=== PATIENT | female | born 1945 | race Caucasian/White ===

== ENCOUNTER 2019-10-27 19:09 | Inpatient (IN) | payer MEDICARE, OTHER, SELFPAY ==
--- NOTE | ~2019-10-27 | CT_ITS ---
EXAMINATION: CTA chest PE protocol DATE: 10/27/2019 21:13 UNIVERSITY SERVICES PROGRAM ASSOCIATE INDICATION: Shortness of breath, fever and bronchitis. TECHNIQUE: Computed tomographic angiography (CTA) of the chest was performed with 100 mL Omnipaque-35 0 intravenous contrast. The dose-length product was 587.01 mGy-cm. Maximum intensity projection 3D-re constructions of the aorta and other arteries were constructed by the technologist on a separate work station. Automated exposure control and iterative reconstruction technique were employed. COMPARISON: Chest x-ray dated 10/27/2019 FINDINGS: The study is technically adequate. There are filling defects in right upper lobe segmental and subsegmental pulmonary arteries, consistent with pulmonary embolism. There is moderate cardiomega ly with left ventricular enlargement. No significant pleural or pericardial effusion. There is athero sclerosis of the aorta without evidence for aneurysm or dissection. No thoracic lymphadenopathy. Ther e is a 1.5 cm left adrenal nodule likely benign adenoma. There is a small 1.5 cm low-density right ad renal nodule. IMPRESSION: 1. Pulmonary embolism involving right upper lobe segmental and subsegmental arteries, small thrombus burden. 2: Moderate cardiomegaly. 3: Small bilateral low-density adrenal nodules, most likely benign adenomas. Reviewed, dictated and finalized at location A. ERSITY SERVICES PROGRAM ASSOCIATE IMPRESSION: 1. Pulmonary embolism involving right upper lobe segmental and subsegmental art eries, small thrombus burden. 2: Moderate cardiomegaly. 3: Small bilateral low-density adrenal nodules, most likely benign adenomas.
--- NOTE | ~2019-10-27 | XR_ITS ---
EXAMINATION: XR chest 2V EXAM DATE: 10/28/2019 10:01 INDICATION: Chest tightness, discomfort. Pulmonary embolism. TECHNIQUE: Frontal and lateral projections of the chest obtained and reviewed. Comparison is made to prior examination from 10/27/2019. FINDINGS: Several small linear regions of basilar atelectasis. The lungs are otherwise clear. There are no pleural effusions. The cardiomediastinal silhouette is within normal limits. There is no pn eumothorax suspected. There are bony degenerative changes. IMPRESSION: Several subsegmental basilar linear regions likely atelectasis. Reviewed, dictated and finalized at location B. TEACHER
--- NOTE | ~2019-10-27 | US_ITS ---
EXAMINATION: US venous doppler [facility] EXAM DATE: 10/28/2019 10:52 INDICATION: Shortness of breath. Pulmonary emboli. TECHNIQUE: Multiple grayscale, color flow and Doppler images of the lower extremity deep venous syste ms bilaterally were obtained and reviewed. There is no prior study for comparison. FINDINGS: Right side: The right common femoral, femoral and profunda veins demonstrate normal color flow, respi ratory variation, augmentation and compressibility. Compressibility, color flow confirmed within the right popliteal, posterior tibial, peroneal, and greater saphenous veins. Left side: The left common femoral, femoral and profunda veins demonstrate normal color flow, respira tory variation, augmentation and compressibility. Compressibility, color flow confirmed within the l eft popliteal, posterior tibial, peroneal, and greater saphenous veins. IMPRESSION: 1. No lower extremity deep venous thrombosis bilaterally. Reviewed, dictated and finalized at location B. T SPECIALIST
--- NOTE | ~2019-10-27 | XR_ITS ---
XR chest 2V 10/27/2019 20:07 Indication: Cough, fever and shortness of breath. Procedure: 2 view chest Comparison: Comparison to multiple prior studies sequentially, with oldest reviewed study dated 04/2010. Findings: Moderate cardiomegaly. No focal air space disease, pulmonary edema, pleural effusion or abi pected pneumothorax. No acute osseous abnormality. There is mild-moderate thoracic spondylosis. Impression: 1: No acute cardiopulmonary disease. 2: Moderate cardiomegaly. Reviewed, dictated and finalized at location A. NT RELATION SPECIALIST Impression: 1: No acute cardiopulmonary disease. 2: Moderate cardiomegaly.
--- NOTE | ~2019-10-27 | CT_ITS ---
EXAMINATION: CT brain wo con DATE: 10/28/2019 19:43 INDICATION: Diffuse headache TECHNIQUE: Computed tomography (CT) of the head was performed without intravenous contrast. The dose- length product was 605.33 mGy-cm. Automated exposure control and iterative reconstruction technique w ere employed. COMPARISON: CT dated 11/19/2018 FINDINGS: There are scattered moderate periventricular and subcortical white matter changes, most lik susanna related to small vessel ischemic disease (microangiopathy). No acute intracranial hemorrhage, inf arction, mass or mass effect. There is intracranial atherosclerosis. No ventriculomegaly or midline s hift. Paranasal sinuses and mastoids are pneumatized. No depressed skull fractures. Midline sagittal images are unremarkable. IMPRESSION: 1. No acute intracranial abnormality. 2: Chronic age-related findings. Reviewed, dictated and finalized at location A. TAL PRODUCTION OPERATOR
--- NOTE | ~2019-10-27 | XR_ITS ---
XR chest 2V 10/28/2019 19:44 Indication: Chest pain Procedure: PA and lateral views of the chest Comparison: Comparison to multiple prior studies sequentially, with oldest reviewed study dated 05/17. Findings: Cardiomegaly. Bibasilar atelectasis. No focal pneumonia, edema, effusion or pneumothorax. N o acute osseous abnormality. Impression: 1: Bibasilar atelectasis. 2: Cardiomegaly. Reviewed, dictated and finalized at location A. OR CLINICAL SAS PROGRAMMER Impression: 1: Bibasilar atelectasis. 2: Cardiomegaly.
[2019-10-27 19:24] VITALS: BP 192/91; PULSE 84; RESP 22; TEMP 37.2; O2SAT 97
--- NOTE | 2019-10-27 19:28 | ED.URI ---
HPI - URI/Sore Throat General Chief Complaint: Upper Respiratory Infection Stated Complaint: trouble breathing,bronchitis Source: patient Mode of arrival: ambulatory Limitations: no limitations History of Present Illness HPI Narrative: This 73-year-old female with a history of diabetes, coronary artery disease hypertension presents with increasing shortness of breath low-grade fever and chills cough that is productive of yellow sputum currently there is no chest pain or tightness no abdominal pain no nausea vomiting and O2 diarrhea or constipation. Patient has seen her primary care physician approximately 4 weeks ago of her cough and congestion was started on a Z-Jorge, apparently 2 weeks later the patient felt no better and was placed on another Z-Jorge. Shortness of breath has increased in intensity with cough is mildly productive with low-grade fever and chills. MD elicited complaint: fever and cough Onset (ago): week(s) Consistency: intermittent Severity: moderate Description of mucous: yellow Exacerbating factors: exertion Relieving factors: nothing Associated symptoms: fever, cough and shortness of breath Related Data Home Medications Medication Instructions Recorded Confirmed aspirin 325 mg PO DAILY 10/27/19 10/27/19 atorvastatin 80 mg PO DAILY 10/27/19 10/27/19 cholecalciferol (vitamin D3) 125 mcg PO DAILY 10/27/19 10/27/19 [Vitamin D3] furosemide 40 mg PO DAILY 10/27/19 10/27/19 insulin NPH and regular human 10 unit SUBCUT QPM 10/27/19 10/27/19 [Novolin 70/30 U-100 Insulin] insulin NPH and regular human 15 unit SUBCUT QAM 10/27/19 10/27/19 [Novolin 70/30 U-100 Insulin] lisinopril 10 mg PO DAILY 10/27/19 10/27/19 metoprolol succinate 50 mg PO DAILY 10/27/19 10/27/19 potassium gluconate 99 mg PO DAILY 10/27/19 10/27/19 Allergies Allergy/AdvReac Type Severity Reaction Status Date / Time codeine Allergy Mild Verified 09/06/10 10:55 Review of Systems Review of Systems: All systems reviewed & are unremarkable except as noted in HPI and below PMFSH Past Medical History Medical History (Updated 10/27/19 @ 21:41 by Ignacio Lauren MD) CAD (coronary artery disease) Diabetes mellitus HTN (hypertension) Exam Const: General: no acute distress and alert Nutritional Appearance: well nourished Orientation/consciousness: patient oriented x3 HENMT: Head: normal to inspection Eyes: Conjunctivae: conjunctivae normal Pupils: Equal, round and reactive pupils present Neck: Neck: normal visual inspection and no lymphadenopathy Chest: Chest palpation & inspection: normal inspection of the chest Resp: Effort & Inspection: normal respiratory effort Auscultation: rhonchi, wheezes and diminished lung sounds Cardio: Rate: regular rate Rhythm: regular rhythm GI: GI Palp: Yes Soft to palpation Percussion: Yes normal to percussion Back/Spine/Pelvis: Back: no CVA tenderness Skin: General skin exam: normal color Rashes: no rashes Neuro: General: patient oriented x3, moves all extremities, no meningeal signs and no focal motor deficits Extrem: General: normal to inspection Psych: Mental Status: mental status grossly normal Course Course Emergency Course: After re-evaluation of the patient the patient is anxious and apprehensive although her breathing status is considerably improved, she was given Ativan and Zofran for nausea patient continues to be nervous and apprehensive, blood pressure is elevated slightly to 177/84. Vital Signs Vital signs: Vital Signs Temperature 37.2 C 10/27/19 19:24 Pulse Rate 84 10/27/19 19:24 Respiratory Rate 22 H 10/27/19 19:24 Blood Pressure 192/91 H 10/27/19 19:24 Pulse Oximetry 97 10/27/19 19:24 Temperature 37.2 C 10/27/19 19:24 Pulse Rate 84 10/27/19 19:24 Respiratory Rate 22 H 10/27/19 19:24 Blood Pressure 192/91 H 10/27/19 19:24 Pulse Oximetry 97 10/27/19 19:24 Critical Care Time Critical Care Time Critical Care Time: No
--- NOTE | 2019-10-27 19:34 | ECG_ITS ---
Measurements Intervals [place] Rate: 72 P: 5 AK: 151 QRS: -46 QRSD: 141 T: 50 QT: 451 QTc: 497 Interpretive Statements SINUS RHYTHM LEFT AXIS DEVIATION LEFT BUNDLE BRANCH BLOCK BASELINE ARTIFACT- I, II, III, AVR, AVL, AVF ABNORMAL ECG Electronically Signed On 10-28-2019 7:16:40 PRODUCTION OPERATIONS ENGINEER by Brian Carson D.O.
[2019-10-27] MEDS: methylPREDNISolone SOD SUCC 125 MG VIAL IV PUSH (19:50)
[2019-10-27 19:52] LABS: Carboxyhemoglobin 0.3 % (0-1.5); HCO3 ABG 22.5 mmol/L (23-29); Methemoglobin ABG 0.2 % (0-1.5); Oxygen Content ABG 14.6 %vol (16.0-22.0); Oxygen Saturation ABG 94.7 % (95-97); Oxyhemoglobin 94.2 % (94-100); PO2 ABG 77.3 mmHg (75-85); Reduced Hemoglobin 5.3 % (0-1.5); pH ABG 7.45 (7.35-7.45)
[2019-10-27 19:56] LABS: Basophils Absolute Auto 0.05 K/mm3 (0.00-0.10); Basophils Percent Auto 0.6 % (0.0-1.0); Device ROOM AIR; Eosinophils Absolute Auto 0.26 K/mm3 (0.02-0.50); Hematocrit 36.9 % (35.0-42.0); Immature Granulocyte Absolute 0.03 K/mm3 (0.00-0.00); Immature Granulocyte Percent A 0.4 % (0.0-0.0); Lymphocytes Absolute Auto 2.79 K/mm3 (1.10-4.50); Lymphocytes Percent Auto 32.6 % (18.0-42.0); Mean Corpuscular HGB Conc 32.5 g/dL (32.0-36.0); Mean Corpuscular Hemoglobin 27.9 pg (27.0-31.0); Mean Corpuscular Volume 85.8 fL (78.0-102.0); Mean Platelet Volume 10.7 fl (9.2-11.8); Modified Allen's Test Pass; Monocytes Absolute Auto 0.52 K/mm3 (0.10-0.90); Monocytes Percent Auto 6.1 % (2.0-11.0); Neutrophils Absolute Auto 4.9 K/mm3 (1.7-7.2); Neutrophils Percent Auto 57.3 % (50.0-70.0); Platelet Count Result 243 K/mm3 (150-420); Red Cell Distribution Width 13.3 % (11.6-14.4); Site Drawn LEFT RADIAL; White Blood Count 8.6 K/mm3 (4.8-10.8)
[2019-10-27] MEDS: IPRATROPIUM 0.5 MG/ALBUTEROL SULFATE 2.5 MG AMPUL.NEB 3 ML INHALATION (19:56)
[2019-10-27 20:00] VITALS: PULSE 84; RESP 22; O2SAT 97
[2019-10-27 20:12] LABS: D Dimer 2.22 mg/L (0.19-0.50)
[2019-10-27 20:14] VITALS: PULSE 74; RESP 22; O2SAT 96
[2019-10-27 20:14] LABS: Alanine Aminotransferase 31 U/L (14-59); Albumin Level 3.8 g/dL (3.4-5.0); Alkaline Phosphatase 35 U/L (46-116); Anion Gap 13.2 mmol/L (7-16); Aspartate Amino Transferase 17 U/L (15-37); Bilirubin,Total 0.4 mg/dL (0.00-1.00); Blood Urea Nitrogen 32 mg/dL (7-18); Calcium 9.2 mg/dL (8.5-10.1); Carbon Dioxide 29 mmol/L (21-32); Chloride 105 mmol/L (98-108); Estimated Glomerular Filt Rate 36; Glucose 149 mg/dL (70-99); Osmolality Calculated 305 mOsm/kg (285-295); Potassium 4.2 mmol/L (3.5-5.1); Sodium 143 mmol/L (136-145); Total Protein 7.4 g/dL (6.4-8.2); Troponin I 0.02 ng/mL (0.00-0.056)
[2019-10-27 20:15] LABS: BNP 295 pg/mL (0-100)
[2019-10-27 20:16] LABS: Magnesium 1.9 mg/dL (1.8-2.4)
[2019-10-27 20:25] LABS: Influenza Control Valid (Valid)
--- NOTE | 2019-10-27 21:08 | PC.NURSE ---
This rn called to ct. pt c/o nausea and shakiness. pt brought back to ed room 2 and edp aware.
[2019-10-27] MEDS: LORAZEPAM INJ 2 MG/ML VIAL 0.5 MG IV PUSH (21:11)
[2019-10-27] MEDS: ONDANSETRON INJ 4 MG/2 ML VIAL IV PUSH (21:11)
[2019-10-27 21:21] VITALS: BP 194/81; PULSE 75; RESP 18; O2SAT 95
[2019-10-27 21:32] VITALS: BP 177/79; PULSE 81; RESP 18; O2SAT 95
--- NOTE | 2019-10-27 22:06 | PC.NURSE ---
report to facundo RN
--- NOTE | 2019-10-27 22:20 | PC.NURSE ---
Pts son to nurses desk and requesting to be called if anything is needed, Dirk Kraft phone # [phone]
[2019-10-27 22:45] VITALS: PULSE 74; RESP 20; O2SAT 94
[2019-10-27] MEDS: APIXABAN 2.5 MG TABLET 10 MG PO (22:49)
--- NOTE | 2019-10-27 23:29 | ADMGEN ---
This patient, Tran Bryan, was admitted to 2nd Floor Room 205-2. Patient/family oriented to hospital policies and general routines including ID bracelet, bed and alarms, visiting hours, pain management, procedures, bathroom and other care routines, personal items, smoking policy, room service/diet, and visiting hours. Valuables list includes a gold colored ring, a gold colored necklace with a gold colored cross, upper and lower dentures, glasses and a cell phone. Information on how to activate the Rapid Response Team has been discussed. Patient/Family are encouraged to report perceived risks to care and to ask questions if they do not understand what they are told or what they should do.
[2019-10-27] MEDS: SODIUM CHLORIDE 0.9% IV 1,000 ML 100 ML IV CONT (23:53)
[2019-10-28] VITALS (19 sets, daily range): BP systolic 107–158; BP diastolic 44–69; PULSE 74–94; RESP 16–20; TEMP 36.1–36.8; O2SAT 89–97
[2019-10-28] MEDS: IPRATROPIUM 0.5 MG/ALBUTEROL SULFATE 2.5 MG AMPUL.NEB 3 ML INHALATION ×3 (00:08→18:02)
--- NOTE | 2019-10-28 00:45 | PC.NURSE ---
Patient awakened but remained drowsy, saying she's sleeping good. Denies chest, head, or any other pain @ this time. Denies SOB. Denies need to use bathroom @ this time. Patient says she has been unable to give sputum specimen, that her cough has slowed down again and she doesn't cough anything up when she does cough. Call light in reach.
[2019-10-28] MEDS: ACETAMINOPHEN 325 MG TABLET 650 MG PO ×3 (04:18→16:57)
[2019-10-28 07:22] LABS: Glucose Point of Care 319 (65-105)
[2019-10-28 07:50] LABS: Basophils Absolute Auto 0.01 K/mm3 (0.00-0.10); Basophils Percent Auto 0.1 % (0.0-1.0); Hematocrit 32.7 % (35.0-42.0); Hemoglobin 10.7 g/dL (11.7-13.8); Immature Granulocyte Absolute 0.05 K/mm3 (0.00-0.00); Immature Granulocyte Percent A 0.6 % (0.0-0.0); Lymphocytes Absolute Auto 0.66 K/mm3 (1.10-4.50); Lymphocytes Percent Auto 7.7 % (18.0-42.0); Mean Corpuscular HGB Conc 32.7 g/dL (32.0-36.0); Mean Corpuscular Hemoglobin 27.9 pg (27.0-31.0); Mean Corpuscular Volume 85.2 fL (78.0-102.0); Mean Platelet Volume 10.7 fl (9.2-11.8); Monocytes Absolute Auto 0.03 K/mm3 (0.10-0.90); Monocytes Percent Auto 0.3 % (2.0-11.0); Neutrophils Absolute Auto 7.9 K/mm3 (1.7-7.2); Neutrophils Percent Auto 91.3 % (50.0-70.0); Platelet Count Result 228 K/mm3 (150-420); Red Blood Count 3.84 M/mm3 (4.20-5.40); Red Cell Distribution Width 13.3 % (11.6-14.4); White Blood Count 8.6 K/mm3 (4.8-10.8)
[2019-10-28 08:01] LABS: INR 1.1; Partial Thromboplastin Time 28.3 SEC (22.3-31.6); Prothrombin Time 11.8 Seconds (9.64-11.0)
--- NOTE | 2019-10-28 08:02 | PC.NURSE ---
Sitting on edge of bed, eating breakfast, denies compalints, warm wash cloth and comb given, telemetry SR 80-90, no sob noted
[2019-10-28 08:09] LABS: Alanine Aminotransferase 26 U/L (14-59); Albumin Level 3.2 g/dL (3.4-5.0); Alkaline Phosphatase 31 U/L (46-116); Anion Gap 18.8 mmol/L (7-16); Aspartate Amino Transferase 15 U/L (15-37); Bilirubin,Total 0.3 mg/dL (0.00-1.00); Blood Urea Nitrogen 33 mg/dL (7-18); Calcium 8.4 mg/dL (8.5-10.1); Carbon Dioxide 21 mmol/L (21-32); Chloride 103 mmol/L (98-108); Estimated CRCL calculation 35 ml/min; Estimated Glomerular Filt Rate 33; Glucose 324 mg/dL (70-99); Osmolality Calculated 306 mOsm/kg (285-295); Potassium 4.8 mmol/L (3.5-5.1); Sodium 138 mmol/L (136-145); Total Protein 6.6 g/dL (6.4-8.2); Troponin I 0.03 ng/mL (0.00-0.056)
[2019-10-28] MEDS: METOPROLOL SUCCINATE EXT REL 50 MG TABCR PO (08:43)
[2019-10-28] MEDS: ASPIRIN 325 MG ENTERIC TABLET PO (08:44)
[2019-10-28] MEDS: FUROSEMIDE 40 MG TABLET PO (08:44)
[2019-10-28] MEDS: CHOLECALCIFEROL 1,000 UNIT TABLET 1000 UNITS PO (08:44)
[2019-10-28] MEDS: lisinopriL 10 MG TABLET PO (08:44)
--- NOTE | 2019-10-28 08:44 | ECG_ITS ---
Measurements Intervals [place] Rate: 81 P: 63 SD: 174 QRS: 127 QRSD: 139 T: 9 QT: 459 QTc: 533 Interpretive Statements SINUS RHYTHM RIGHT AXIS DEVIATION IVCD, CONSIDER ATYPICAL LEFT BUNDLE BRANCH BLOCK ST-T WAVE ABNORMALITY IN INFERIOR LEADS- CONSIDER ISCHEMIA ABNORMAL ECG Electronically Signed On 10-28-2019 7:20:35 APPARATUS ENGINEERING TECHNOLOGIST by Brian Carson D.O.
[2019-10-28] MEDS: AMLODIPINE BESYLATE 5 MG TABLET PO (08:45)
[2019-10-28] MEDS: APIXABAN 2.5 MG TABLET 10 MG PO ×2 (08:45→20:40)
[2019-10-28] MEDS: INSULIN HUMAN ISOPHAN/REGULAR 70/30 (*BKC) 100 UNITS/ML 15 UNITS SUB-Q (08:46)
[2019-10-28] MEDS: methylPREDNISolone SOD SUCC 40 MG VIAL IV PUSH (08:46)
--- NOTE | 2019-10-28 08:57 | PC.NURSE ---
attempt to apply thigh high danae hose, knee high applied, tolerated well and do go above knee
--- NOTE | 2019-10-28 09:07 | PC.NURSE ---
SBA up to void, then to chair, legs elevated for comfort, slight fernandez noted
--- NOTE | 2019-10-28 09:36 | PC.NURSE ---
Assisted to WC for CXR to be done, tolerated well, slight dizzyness when first standing, telemetry SR
[2019-10-28] MEDS: SODIUM CHLORIDE 0.9% IV 1,000 ML 100 ML IV CONT (09:39)
--- NOTE | 2019-10-28 09:46 | PC.NURSE ---
To imaging via wheel chair
--- NOTE | 2019-10-28 09:53 | PC.NURSE ---
returned from imaging
--- NOTE | 2019-10-28 10:14 | PC.NURSE ---
venous dopplar being done at the bedside at this time
--- NOTE | 2019-10-28 10:30 | ECHO_ITS ---
Patient Info Name: Tran Bryan Age: 73 years : 1945 Gender: Female Ht: 59 in Wt: 164 lbs BSA: 1.79 m2 HR: 80 bpm BP: 135 / 65 mmHg Heart Rhythm: Sinus Rhythm Technical Quality: Fair Exam Date: 10/28/2019 2:05 PM Exam Location: [facility] Patient Status: Inpatient Admit Date: 10/27/2019 Staff Ordering Physician: Latoya Mcneil NP [place] Supervisor: Raimundo Henson RDCS Attending Provider: Ignacio Lauren MD Referring Physician: Tarun WEEKS; Exam Type: CA echo doppler color flow Study Info Indications I26.99 - Other pulmonary embolism without acute cor pulmonale Complete two-dimensional, color flow and Doppler transthoracic echocardiogram is performed. History/Risk Factors Pulmonary embolism; SOB, CAD/CHF, DM2, HTN, CKD III. Summary 1. Left ventricular chamber dimension is normal. 2. Left ventricular systolic function is normal, estimated at 55-60%. 3. There is mildly increased left ventricular wall thickness. 4. The left ventricular diastolic function is grade I diastolic dysfunction. 5. E/e' 21 is elevated. 6. Left atrial chamber dimension is moderately enlarged. 7. There is mild to moderate mitral valve regurgitation. 8. Moderate pulmonary hypertension, estimated pulmonary arterial systolic pressure is 54 mmHg. 9. Dilated inferior vena cava with >50% collapse upon inspiration consistent with elevated right atrial pressure, 10 mmHg. 10. There is trivial pericardial effusion. Left Ventricle E/e' 21 is elevated. Left ventricular chamber dimension is normal. Left ventricular systolic function is normal, estimated at 55-60%. There is mildly increased left ventricular wall thickness. The left ventricular diastolic function is grade I diastolic dysfunction. Right Ventricle Right ventricular chamber dimension is normal. Right ventricular systolic function is normal. Left Atria Left atrial chamber dimension is moderately enlarged. Right Atria Right atrial chamber dimension is normal. Aortic Valve The aortic valve is trileaflet. There is no aortic valve stenosis. There is no aortic valve regurgitation. Pulmonic Valve There is no pulmonic regurgitation. Mitral Valve There is no mitral valve stenosis. There is mild to moderate mitral valve regurgitation. Tricuspid Valve There is no tricuspid valve regurgitation. Moderate pulmonary hypertension, estimated pulmonary arterial systolic pressure is 54 mmHg. Pericardium/Pleural There is trivial pericardial effusion. Inferior Vena Cava Dilated inferior vena cava with >50% collapse upon inspiration consistent with elevated right atrial pressure, 10 mmHg. Aorta The aortic root size at the sinus of Valsalva is normal. Left Ventricular Outflow Tract Name Value Normal LVOT 2D LVOT Diameter 1.8 cm LVOT Doppler LVOT Peak Velocity 144 cm/s LVOT Peak Gradient 8 mmHg LVOT Mean Gradient 5 mmHg LVOT VTI 30 cm LVOT VTI/AV VTI Ratio 0.6 LVOT Stroke Volume
--- NOTE | 2019-10-28 10:38 | PC.NURSE ---
tylenol given for headache
--- NOTE | 2019-10-28 10:39 | PM.IMHP ---
H&P: HPI History of Present Illness Chief complaint: trouble breathing,bronchitis Narrative: Tran Bryan is a 73 year old female admitted with unresolving and worsening SOB, low grade fever and chills, intermittently productive cough with yellow sputum, and unresolving acute bronchitis despite 2 courses of outpatient antibiotics. Tran has seen her primary care physician approximately 4 weeks ago of her cough and congestion was started on a Z-Jorge, apparently 2 weeks later the patient felt no better and was placed on another Z-Jorge. She completed both courses of azithromycin. She was very anxious and apprehensive in the ED although her breathing status is considerably improved. She informed me that she was in tears when they told her of the PE diagnosis. She was given Ativan and Zofran for nausea in the ED, but patient continued to be nervous and apprehensive. Her blood pressure was also elevated at 177/84 in the ED. She denied at admission and continues to deny: chest pain or tightness, abdominal pain, nausea, vomiting, diarrhea, or constipation. Tran has a history of diabetes, coronary artery disease, hypertension. TODAY, while she admits to being more comfortable and feeling better, she continues to be SOB. She is not requiring supplemental O2 while at rest. Will check a Home O2 study to see how she does with ambulation and distance. She continues to have a slight dizziness or slight imbalance feeling when she stands and ambulates. Ordered Orthostatic BP check. She is calm and pleasant, good historian, no dyspnea with conversation, extremities are warm and pink, and tolerating room air and her Eliquis dosing. No s/s of active bleeding at this time and no acute s/s of Cardiac burden at this time. Will continue Telemetry monitoring. Review of Systems Review of Systems: All systems reviewed & are unremarkable except as noted in HPI and below Constitutional: Constitutional: Reports as per HPI, Reports chills, Reports lethargy and Reports weakness Eyes: Eyes: Reports as per HPI ENT: Reports as per HPI Cardiovascular: Cardiovascular: Reports as per HPI, Denies pedal edema, Denies leg edema, Reports lightheadedness and Reports palpitations Respiratory: Respiratory: Reports as per HPI, Reports chest congestion, Reports cough, Denies hemoptysis, Reports dyspnea, Reports dyspnea on exertion and Reports wheezing Gastrointestinal: Gastrointestinal: Reports as per HPI, Reports no additional gastrointestinal complaints and Denies hematochezia Genitourinary: Genitourinary: Reports as per HPI, Denies nocturia and Denies flank pain Musculoskeletal: Musculoskeletal: Reports as per HPI, Reports back pain and Reports myalgias Integumentary/Breasts: Skin/Breast: Reports system reviewed and no additional complaints, except as docu, Reports as per HPI and Denies unusual bruising Neurologic: Reports as per HPI, Denies Abnormal speech present, Denies abnormal gait, Denies confusion and Denies numbness Psychiatric: Psychiatric: Reports as per HPI, Reports anxiety, Denies confusion, Denies homicidal ideation and Denies suicidal ideation Hematologic/Lymphatic: Hematologic/Lymphatic: Reports as per HPI, Denies easy bleeding, Denies easy bruising and Denies lymphadenopathy [facility] Past Medical History Medical History (Updated 10/28/19 @ 12:49 by Latoya Mcneil NP) Abdominal pain, chronic, epigastric Acute upper respiratory infection CAD (coronary artery disease) Diagnosed in April 2015, OM stent Dr. Shay April 2015. Carotid stenosis Left ICA 75% stenosis Cataract Diabetes mellitus Diverticulosis of colon Diverticulosis of large intestine without perforation or abscess without bleeding HTN (hypertension) Ischemic cardiomyopathy Echo 2015 showed dilated LV EF 40%. Paradoxical septal motion from conduction abnormality + anteroseptal akinesis. Diastolic dysfunction. Labile hypertension Low back pain Lumbosacral radiculopathy at L5 Medical non-compliance
[2019-10-28 11:28] LABS: Glucose Point of Care 336 (65-105)
[2019-10-28 11:30] LABS: Magnesium 1.7 mg/dL (1.8-2.4); Phosphorus 4.1 mg/dL (2.6-4.7)
--- NOTE | 2019-10-28 11:33 | PC.NURSE ---
Up in [place] with Physical Therapy
[2019-10-28 13:11] LABS: Glucose Point of Care 390 (65-105)
--- NOTE | 2019-10-28 14:35 | PC.NURSE ---
SBA up to void, tolerated well, telemetry SR
--- NOTE | 2019-10-28 16:07 | PC.NURSE ---
Resting in bed, personal items and call light in reach
[2019-10-28 16:57] LABS: Glucose Point of Care 367 (65-105)
--- NOTE | 2019-10-28 17:18 | PC.NURSE ---
Resting in bed, denies needs, call light in reach of pateint, no sob noted
[2019-10-28] MEDS: ATORVASTATIN 40 MG TABLET 80 MG PO (17:57)
[2019-10-28] MEDS: INSULIN HUMAN ISOPHAN/REGULAR 70/30 (*BKC) 100 UNITS/ML 10 UNITS SUB-Q (17:57)
--- NOTE | 2019-10-28 18:19 | PC.NURSE ---
Neb treatment completed, denies needs, no distress noted, telemetry SR
--- NOTE | 2019-10-28 18:42 | PC.NURSE ---
Called to room, states headache is getting worse and just doesn't feel right, pain in chest and in her left breast area, no fever, no sob, faint wheeze upper airway noted, skin warm and dry, states headache has been all day, however, is now much worse, doctor notified
--- NOTE | 2019-10-28 18:48 | ECG_ITS ---
Measurements Intervals [place] Rate: 97 P: 69 PA: 175 QRS: -55 QRSD: 150 T: 75 QT: 404 QTc: 515 Interpretive Statements SINUS RHYTHM LEFT AXIS DEVIATION LEFT BUNDLE BRANCH BLOCK CONSIDER ANTEROSEPTAL INFARCT OR DUE TO LBBB ABNORMAL ECG Electronically Signed On 10-29-2019 7:46:18 YARDAGE CONTROL OPERATOR by Brian Carson D.O.
--- NOTE | 2019-10-28 18:55 | PC.NURSE ---
Labs drawn per tech
[2019-10-28] MEDS: LORAZEPAM INJ 2 MG/ML VIAL 0.5 MG IV PUSH (19:06)
--- NOTE | 2019-10-28 19:06 | PC.NURSE ---
EKG done per Dillan Rivers RN. Patient tolerated well. Results shown to Dr Escobar
[2019-10-28 19:07] LABS: Basophils Absolute Auto 0.01 K/mm3 (0.00-0.10); Basophils Percent Auto 0.1 % (0.0-1.0); Hematocrit 32.8 % (35.0-42.0); Hemoglobin 10.6 g/dL (11.7-13.8); Immature Granulocyte Absolute 0.14 K/mm3 (0.00-0.00); Immature Granulocyte Percent A 0.8 % (0.0-0.0); Lymphocytes Percent Auto 6.2 % (18.0-42.0); Mean Corpuscular HGB Conc 32.3 g/dL (32.0-36.0); Mean Corpuscular Hemoglobin 27.6 pg (27.0-31.0); Mean Corpuscular Volume 85.4 fL (78.0-102.0); Monocytes Absolute Auto 0.38 K/mm3 (0.10-0.90); Monocytes Percent Auto 2.2 % (2.0-11.0); Neutrophils Percent Auto 90.7 % (50.0-70.0); Platelet Count Result 258 K/mm3 (150-420); Red Blood Count 3.84 M/mm3 (4.20-5.40); Red Cell Distribution Width 13.4 % (11.6-14.4); White Blood Count 17.7 K/mm3 (4.8-10.8)
--- NOTE | 2019-10-28 19:10 | PC.NURSE ---
PRN Ativan given for anxiety prior to patient going for tests
--- NOTE | 2019-10-28 19:25 | PC.NURSE ---
Patient returned from radiology tests. Patient tolerated well. Tech assisted patient to toilet to urinate.
[2019-10-28 19:28] LABS: Alanine Aminotransferase 26 U/L (14-59); Albumin Level 3.4 g/dL (3.4-5.0); Alkaline Phosphatase 39 U/L (46-116); Anion Gap 17.4 mmol/L (7-16); Aspartate Amino Transferase 14 U/L (15-37); Bilirubin,Total 0.3 mg/dL (0.00-1.00); Blood Urea Nitrogen 41 mg/dL (7-18); Calcium 8.6 mg/dL (8.5-10.1); Carbon Dioxide 24 mmol/L (21-32); Chloride 102 mmol/L (98-108); Estimated CRCL calculation 30 ml/min; Estimated Glomerular Filt Rate 27; Glucose 365 mg/dL (70-99); Osmolality Calculated 313 mOsm/kg (285-295); Potassium 4.4 mmol/L (3.5-5.1); Sodium 139 mmol/L (136-145); Total Protein 6.9 g/dL (6.4-8.2)
[2019-10-28 19:29] LABS: Troponin I < 0.02 ng/mL (0.00-0.056)
[2019-10-28 19:50] LABS: CRP 0.9 mg/dL (0.0-0.9)
[2019-10-28 19:59] LABS: BNP 352 pg/mL (0-100)
--- NOTE | 2019-10-28 20:08 | PC.NURSE ---
Addendum entered by Dara Diop RN 10/28/19 20:09: actual time @ 1910 Original Note: Patient to radiology per tech for tests
--- NOTE | 2019-10-28 20:15 | PC.NURSE ---
windows server support technician drawing blood cultures. Nurse spoke with patient and patient says she's refusing any more breathing treatments because just after she finished it is when she started feeling so bad.
--- NOTE | 2019-10-28 20:16 | PC.NURSE ---
Dr Escobar saw patient. Additional orders received. Patient started on O2 @ 2 lpm/nc due to SpO2 of 89%.
[2019-10-28] MEDS: PANTOPRAZOLE SODIUM IV 40 MG VIAL IV PUSH (20:38)
[2019-10-28] MEDS: NITROGLYCERIN SL 0.4 MG TABLET SUBLINGUAL (20:39)
--- NOTE | 2019-10-28 20:47 | PC.NURSE ---
PRN Nitro and Protonix as ordered. Patient states that her headache pain went down to a 5 a few minutes after she received the Ativan earlier and it remains @ 5 now.
--- NOTE | 2019-10-28 21:29 | PC.NURSE ---
Patient says she's feeling a whole lot better. She denies pain @ this time saying her head feels funny but it doesn't hurt. Patient is in a good mood.Call light in reach.
--- NOTE | 2019-10-28 22:00 | PC.NURSE ---
Patient resting quietly in bed. O2 continues @ 2 lpm/nc. Respirations even and unlabored. No distress noted. Call light in reach.
[2019-10-28 22:25] LABS: Troponin I 0.02 ng/mL (0.00-0.056)
--- NOTE | 2019-10-28 23:58 | PM.EVENT ---
Event Note Event Note Event Note: I saw Ms. Bryan this morning and she had no complaints. She had bilateral quiles expiratory wheezing but no hypoxia or tachycardia. Approximately 7:00 p.m. this evening she was found have chest pain, some mild hypoxia, and headache. She is complaining of shortness breath. She had no new physical exam findings at that time. Her white count is elevated but she had no other new lab or EKG findings. Serial enzymes ordered. Her symptoms abated after she was given sublingual nitroglycerin. I reviewed the chart and examined the patient. I discussed the patient's care with a Tarun PAGE and agree with her assessment and plan.
[2019-10-29] VITALS: BP 117/43; PULSE 84; RESP 16; TEMP 36.6; O2SAT 94
--- NOTE | 2019-10-29 | PC.NURSE ---
Patient denies chest, head or any other pain @ this time. VSS. Patient also denies need to use restroom and says she hasn't been able to give sputum for test because she's not coughing as much as earlier and when she does cough it's a dry cough.
--- NOTE | 2019-10-29 01:05 | PC.NURSE ---
Patient appears to be sleeping by the rise and fall of her chest. O2 continues @ 2 lpm/nc. No distress noted. Call light in reach.
[2019-10-29 01:39] LABS: Troponin I 0.05 ng/mL (0.00-0.056)
--- NOTE | 2019-10-29 02:53 | PC.NURSE ---
SpO2 staying @ 93-95% @ 2 lpm/nc. O2 decreased to 1.5 lpm/nc to attempt to wean O2. Patient appears to be sleeping by the rise and fall of her chest. Respirations even and unlabored. Call light in reach.
--- NOTE | 2019-10-29 03:54 | PC.NURSE ---
Patient's SpO2 staying @ 92-94% on 1.5 lpm/nc. O2 decreased to 1 lpm/nc @ this time. Respirations even and unlabored. No distress noted. Call light in reach.
[2019-10-29 03:59] VITALS: PULSE 66
[2019-10-29 04:00] VITALS: BP 121/52; PULSE 72; RESP 16; TEMP 36.3; O2SAT 94
--- NOTE | 2019-10-29 05:14 | PC.NURSE ---
Patient awake when nurse entered room. Patient says she hasn't slept that good in months. Urine sample obtained, clear yellow, sent with label maker. Patient still unable to give sputum culture. Denies cough. Denies pain. Patient barely remembers nurse or lab coming in her room last night. Respirations even and unlabored. O2 on @ 1 lpm/nc with SpO2 staying 93-96%. O2 turned down to 0.5 lpm/nc @ this time. No distress noted. Call light in reach.
[2019-10-29 05:27] LABS: Hematocrit 29.3 % (35.0-42.0); Hemoglobin 9.5 g/dL (11.7-13.8); Mean Corpuscular HGB Conc 32.4 g/dL (32.0-36.0); Mean Corpuscular Hemoglobin 27.9 pg (27.0-31.0); Mean Corpuscular Volume 86.2 fL (78.0-102.0); Mean Platelet Volume 10.9 fl (9.2-11.8); Platelet Count Result 240 K/mm3 (150-420); Red Cell Distribution Width 13.5 % (11.6-14.4); White Blood Count 18.2 K/mm3 (4.8-10.8)
[2019-10-29 05:32] LABS: Add Urine Microscopic? YES; Appearance Urine Sl Cloudy (Clear); Bilirubin Urine Negative (Negative); Blood Urine Negative (Negative); Color Urine Yellow (Yellow); Glucose Urine UA Trace (Negative); Ketones Urine Negative (Negative); Leukocyte Esterase Ur 1+ (Negative); Nitrate Urine Negative (Negative); Protein Urine Negative (Negative); Urobilinogen Urine 0.2 mg/dL (0.2-1.0)
[2019-10-29 05:46] LABS: RBC Urine 0-2 /hpf (0-2); WBC Urine 16-20 /hpf (0-3)
[2019-10-29 05:47] LABS: Bacteria Urine 3+ /hpf; Squamous Epithelial Cell Urine None seen /hpf (Few)
[2019-10-29 05:48] LABS: Alanine Aminotransferase 21 U/L (14-59); Albumin Level 2.9 g/dL (3.4-5.0); Alkaline Phosphatase 27 U/L (46-116); Anion Gap 14.6 mmol/L (7-16); Aspartate Amino Transferase 12 U/L (15-37); Bilirubin,Total 0.3 mg/dL (0.00-1.00); Blood Urea Nitrogen 43 mg/dL (7-18); Calcium 8.4 mg/dL (8.5-10.1); Carbon Dioxide 24 mmol/L (21-32); Chloride 104 mmol/L (98-108); Estimated CRCL calculation 32 ml/min; Estimated Glomerular Filt Rate 29; Glucose 302 mg/dL (70-99); Osmolality Calculated 307 mOsm/kg (285-295); Potassium 4.6 mmol/L (3.5-5.1); Sodium 138 mmol/L (136-145); Total Protein 5.9 g/dL (6.4-8.2)
--- NOTE | 2019-10-29 06:02 | PC.NURSE ---
Patient appears to be sleeping by the rise and fall of her chest. Respirations even and unlabored. O2 on @ 0.5 lpm/nc with SpO2 staying at 95-96%. O2 turned off @ this time. No distress noted. Call light in reach.
[2019-10-29 06:06] LABS: Troponin I 0.08 ng/mL (0.00-0.056)
--- NOTE | 2019-10-29 06:28 | PC.NURSE ---
O2 turned back up to 0.5 lpm/nc due to SpO2 staying 89-90% on room air. SpO2 increased right away to 94%. Respirations even and unlabored. No distress noted. Call light in reach.
--- NOTE | 2019-10-29 06:50 | PC.NURSE ---
SpO2 staying 89-91% again. O2 increased to 1 lpm/nc. Patient appears to be sleeping. No distress noted. Call light in reach.
[2019-10-29 07:35] VITALS: BP 143/57; PULSE 72; PULSE 78; RESP 20; TEMP 36.6; O2SAT 98
[2019-10-29 07:51] LABS: Glucose Point of Care 276 (65-105)
[2019-10-29 08:35] VITALS: PULSE 86; O2SAT 96
--- NOTE | 2019-10-29 08:47 | HOMEO2EVAL ---
Home Oxygen Evaluation RC: Home Oxygen (O2) Evaluation Start: 10/28/19 11:57 Freq: ONCE Status: Active Protocol: RPE Activity Type Activity Date Activity User E-Sign Co-Sign Detail Recorded Client Recorded Date Recorded By Document 10/29/19 08:34 SJB [id number] 10/29/19 08:47 SJB Document 10/29/19 08:35 SJB [id number] 10/29/19 08:47 SJB 10/29/19 10/29/19 08:34 08:35 Home O2 Evaluation Test Phase Resting Exercise Oxygen Delivery Room Air Room Air Pulse Oximetry (90-100 %) 96 Pulse Rate (60-100 beats/min) 86 Activity Tolerance Excellent Rating of Perceived Dyspnea (PD) +1 Mild, Noticeable to the Participant but Not to an Observer Rate of Perceived Exertion (PE) 9 Very light Ambulation Distance (feet) 700 Home Oxygen Evaluation Comments Pt walked approx 700 ft pushing wheelchair on room air. [place] very well. Sp02s remained between 92-97%, with most of the walk staying at 96%, and HRs 65-86. Pt talked the whole walk and did use PLB as taught. Treatment Charges O2 Evaluation
[2019-10-29 09:08] VITALS: PULSE 74
[2019-10-29] MEDS: FUROSEMIDE 40 MG TABLET PO (09:08)
[2019-10-29] MEDS: AMLODIPINE BESYLATE 5 MG TABLET PO (09:08)
[2019-10-29] MEDS: CHOLECALCIFEROL 1,000 UNIT TABLET 1000 UNITS PO (09:08)
[2019-10-29] MEDS: METOPROLOL SUCCINATE EXT REL 50 MG TABCR PO (09:08)
[2019-10-29] MEDS: APIXABAN 2.5 MG TABLET 10 MG PO (09:08)
[2019-10-29] MEDS: ASPIRIN 325 MG ENTERIC TABLET PO (09:09)
[2019-10-29] MEDS: lisinopriL 10 MG TABLET PO (09:09)
[2019-10-29] MEDS: INSULIN HUMAN ISOPHAN/REGULAR 70/30 (*BKC) 100 UNITS/ML 15 UNITS SUB-Q (09:18)
[2019-10-29 09:22] LABS: CRP 0.8 mg/dL (0.0-0.9)
--- NOTE | 2019-10-29 09:28 | ECG_ITS ---
Measurements Intervals [place] Rate: 66 P: 55 VT: 166 QRS: 37 QRSD: 97 T: 250 QT: 409 QTc: 430 Interpretive Statements SINUS RHYTHM VENTRICULAR PREMATURE COMPLEX DELAYED PRECORDIAL R/S TRANSITION ST-T WAVE ABNORMALITY IN ANTEROLAT/INF LEADS- CONSIDER ISCHEMIA ABNORMAL ECG Electronically Signed On 10-29-2019 11:17:51 MAKE UP MAN by Brian Carson D.O.
[2019-10-29 09:52] LABS: BNP 351 pg/mL (0-100)
[2019-10-29 10:16] LABS: Creatine Kinase 59 U/L (26-192)
[2019-10-29 10:20] LABS: Erythrocyte Sedimentation Rate 28 mm/hr (0-20)
[2019-10-29] MEDS: LORAZEPAM INJ 2 MG/ML VIAL 0.5 MG IV PUSH (10:53)
[2019-10-29 11:36] LABS: Glucose Point of Care 246 (65-105)
--- NOTE | 2019-10-29 11:45 | PM.DS ---
DS: Diagnosis Admitting Diagnosis Admitting Diagnosis: Type 2 diabetes mellitus without complications Discharge Diagnosis (1) Pulmonary embolism on right: Code(s): I26.99 - Other pulmonary embolism without acute cor pulmonale Status: Acute Assessment and Plan: CTA chest PE protocol showed: There are filling defects in right upper lobe segmental and subsegmental pulmonary arteries, consistent with pulmonary embolism. There is moderate cardiomegaly with left ventricular enlargement. No significant pleural or pericardial effusion. IMPRESSION: 1. Pulmonary embolism involving right upper lobe segmental and subsegmental arteries, small thrombus burden. Started on Eliquis 10mg BID at ED admission. Tolerating Eliquis without complaint monitor chronic anemia with CBC 3-5 days after discharge and F/U with her PCP Dr. Torres and [facility] [employer] [employer] Dr. Carson. EKG shows Sinus rhythm and ordered Venous Doppler study BLE. Continues to have pulmonary wheezing: May also have un-resolving acute bronchitis despite 2 courses of outpatient antibiotics: 2 high doses of IV solumedrol, continued Neb txs. and Inhalers as scheduled. WIll need a Home O2 study when preparing for discharge to home. (2) Hypertrophic cardiomegaly: Code(s): I51.7 - Cardiomegaly Status: Acute Assessment and Plan: Due to her ABG results, persistent SOB and CTA findings, ECHO ordered for today showed ABG had marginally low O2 saturation at 94.7 and other abnormal results. CTA shows: There are filling defects in right upper lobe segmental and subsegmental pulmonary arteries, consistent with pulmonary embolism. There is moderate cardiomegaly with left ventricular enlargement. No past ECHO done according to patient and her PCP office. monitor and control HR and BPs with continued Metoprolol and Lisinopril and medications as needed currently denies Chest pain, shoulder pain, arm pain, jaw pain, upper extremity numbness or tingling. pulses to all extremities present and palpable, extremities are warm and pink. Has appointment on Saturday with [facility] Dr. Carson at 2:45pm at [facility]. Due to LV hypertrophy: Likely needs to switch from Lisinopril to Losartan - will need to review ECHO results and let Caridologist examine her and make that decision. (3) HTN (hypertension): Code(s): I10 - Essential (primary) hypertension Status: Acute Assessment and Plan: Continued home medications: Metoprolol and lisinopril, Lasix and KCl vital signs Q 4 hours. last set 142/53 with HR 78. no chest pain and no headache. (4) Diabetes mellitus: Code(s): E11.9 - Type 2 diabetes mellitus without complications Status: Acute Assessment and Plan: A1 C 7.9 on 08/18 will continue NPH/regular 70/30 with 15 unit SQ every morning and 10 units SQ every evening. Glucose checks are 149 (at admission) and 324 and 319 (after high IV steroid 125 mg dosing) and 336 (after another IV steroid dosing) Will continue to monitor on diabetic diet on Moderate SSI and will give PRN insulin dosing as needed. (5) CAD (coronary artery disease): Code(s): I25.10 - Atherosclerotic heart disease of [place] coronary artery without angina pectoris Status: Acute Assessment and Plan: Continuous Telemetry monitoring Ordered ECHO continue home ASA 325 mg daily and atorvastatin 80 mg daily monitor and control HR and BPs with continued Metoprolol and Lisinopril and medicactions as needed currently denies Chest pain, shoulder pain, arm pain, jaw pain, upper extremity numbness or tingling. pulses to all extremities present and palpable. Has appointment on Saturday with [facility] Dr. Carson at 2:45pm at [facility]. Needs to discuss with PCP repeating her Carotid Doppler study due to history of Left ICA stenosis of 75%. Troponins started elevating. Consulted with [facility] at [facility] - agreed to
[2019-10-29 13:35] LABS: Glucose Point of Care 158 (65-105)
== END 2019-10-29 12:20 | disposition short-term general hospital (02) | DRG 175 ==
LOC: CHSED 21:41 → CHS2ND 21:59
PROVIDERS: Emergency Medicine; Nurse Practitioner; Admitting Provider Emergency Medicine; Emergency Provider Emergency Medicine; Visit Provider Emergency Medicine
DX: I26.99 Other pulmonary embolism without acute cor pulmonale (principal); I26.09 Other pulmonary embolism with acute cor pulmonale; E11.9 Type 2 diabetes mellitus without complications; I10 Essential (primary) hypertension; I25.10 Atherosclerotic heart disease of native coronary artery without angina pectoris; I65.22 Occlusion and stenosis of left carotid artery; I25.5 Ischemic cardiomyopathy; I12.9 Hypertensive chronic kidney disease with stage 1 through stage 4 chronic kidney disease, or unspecified chronic kidney disease; E11.22 Type 2 diabetes mellitus with diabetic chronic kidney disease; N18.3 Chronic kidney disease, stage 3 (moderate); K57.90 Diverticulosis of intestine, part unspecified, without perforation or abscess without bleeding; M54.17 Radiculopathy, lumbosacral region; I51.7 Cardiomegaly
CPT/HCPCS: 36415; 36600; 70450; 71046; 71275; 80053; 81001; 82375; 82550; 82553; 82805; 83050; 83735; 83880; 84100; 84484; 85025; 85027; 85380; 85610; 85652; 85730; 86140; 87040; 87077; 87086; 87088; 87186; 87804; 93005; 93306; 93970; 94618; 94640; 96374; 96375; 99284; 99285; A9270; C9113; J1815; J2060; J2405; J2920; J2930; J7030; Q9965

== ENCOUNTER 2019-10-29 13:12 | Inpatient (IN) | payer MEDICARE, OTHER, SELFPAY ==
[2019-10-29] VITALS (9 sets, daily range): BP systolic 118–156; BP diastolic 49–64; PULSE 60–75; RESP 16–20; TEMP 36.2–36.4; O2SAT 92–96; BMI 33.7
--- NOTE | 2019-10-29 13:28 | ADMGEN ---
This patient, Tran Bryan, was admitted to IMU Room 201-01. Patient/family oriented to hospital policies and general routines including ID bracelet, bed and alarms, visiting hours, pain management, procedures, bathroom and other care routines, personal items, smoking policy, room service/diet, and visiting hours. Valuables list has been completed. Information on how to activate the Rapid Response Team has been discussed. Patient/Family are encouraged to report perceived risks to care and to ask questions if they do not understand what they are told or what they should do.
--- NOTE | 2019-10-29 14:25 | ECG_ITS ---
Measurements Intervals [place] Rate: 64 P: 23 [place]: 138 QRS: 55 QRSD: 87 T: 253 QT: 400 QTc: 414 Interpretive Statements SINUS RHYTHM DELAYED PRECORDIAL R/S TRANSITION ST-T WAVE ABNORMALITY IN ANTEROLAT/INF LEADS- CONSIDER ISCHEMIA ABNORMAL ECG Electronically Signed On 10-29-2019 15:21:26 INSTRUMENT OPERATOR by Brian Carson D.O.
--- NOTE | 2019-10-29 14:30 | PM.IMHP ---
H&P: HPI History of Present Illness Chief complaint: PE with Elevated Troponin and st depression Narrative: Tran Bryan is a 73 year old female who was a direct admit from [facility]. The patient came to [facility] on 10/27/2019 through the ER department. The patient had worsening in on resolving shortness of breath, low-grade fever and chills. She also had productive cough that was yellow sputum and was treated with 2 rounds of antibiotics outpatient without resolution. The patient had 2 rounds of a Z-Jorge. The 1st time she was seen by primary care doctor was approximately 4 weeks ago for cough and congestion. The patient stated she went to [facility] and found out that she had a pulmonary emboli. The patient has been more nervous and apprehensive. Patient is currently on room air. Patient denies any shortness of breath or any chest pain at this time. Troponin was noted to be 0.08 and 0.10. She did have an echo performed at [facility] which was read as a EF of 55-60%. Grade 1 diastolic dysfunction.. Dopplers which was read as no lower extremity deep vein thrombosis bilaterally. House Father LINDA Gill was notified concerning patient's transfer to [facility]. However the patient stated that Dr. Carson is her clinical academic allergist. CT chest on 10/27/2019 was read as pulmonary embolism involving right upper lobe segmental and subsegmental arteries, small thrombosis burden. Moderate cardiomegaly. Patient is a direct admit from [facility] date of service 10/29/2019 Review of Systems Review of Systems: Narrative: Patient has no complaints at this time. Patient is crying and upset that she has sustained Hospital if she has many people relying on her at home. All systems reviewed & are unremarkable except as noted in HPI and below Constitutional: Constitutional: Reports as per HPI and Reports no additional constitutional complaints Comments: No fever no chills no cough at this time. Eyes: Eyes: Reports as per HPI and Reports no additional eye complaints ENT: Reports system reviewed and no additional complaints, except as documented and Reports Normal hearing present Cardiovascular: Cardiovascular: Reports no additional cardiovascular complaints Respiratory: Respiratory: Reports no additional respiratory complaints and Reports no additional respiratory complaints Gastrointestinal: Gastrointestinal: Reports as per HPI and Reports no additional gastrointestinal complaints Musculoskeletal: Musculoskeletal: Reports no additional musculoskeletal complaints Integumentary/Breasts: Skin/Breast: Reports system reviewed and no additional complaints, except as docu and Reports as per HPI Neurologic: Reports system reviewed and no additional complaints, except as documented, Reports as per HPI and Reports Normal hearing present Psychiatric: Psychiatric: Reports no additional psychiatric complaints and Reports as per HPI Endocrine: Endocrine: Reports no additional endocrine complaints Hematologic/Lymphatic: Hematologic/Lymphatic: Reports no additional hematologic/lymphatic complaints Allergic/Immunologic: Allergic/Immunologic: Reports no additional allergic/immunologic complaints [facility] Past Medical History Medical History (Updated 10/29/19 @ 14:53 by Kami Mitchell BUFFET WAITER/WAITRESS) Abdominal pain, chronic, epigastric Acute upper respiratory infection CAD (coronary artery disease) Diagnosed in April 2015, OM stent Dr. Shay April 2015. Carotid stenosis Left ICA 75% stenosis Cataract Diabetes mellitus Diverticulosis of colon Diverticulosis of large intestine without perforation or abscess without bleeding HTN (hypertension) Hyperlipidemia Ischemic cardiomyopathy Echo 2015 showed dilated LV EF 40%. Paradoxical septal motion from conduction abnormality + anteroseptal akinesis. Diastolic dysfunction. Labile hypertension Low back pain Lumbosacral radiculopathy at L5 Medical non-compliance Normocytic anemia Sinus t
[2019-10-29 15:03] LABS: Basophils Percent Auto 0.1 % (0.2-1.2); Eosinophils Percent Auto 0.2 % (0-4.4); Hematocrit 33.2 % (37.0-47.0); Hemoglobin 10.6 g/dL (12.0-15.0); Immature Granulocyte Absolute 0.15 K/mm3 (0.00-0.031); Immature Granulocyte Percent A 0.9 % (0-0.5); Lymphocytes Absolute Auto 2.61 K/mm3 (0.9-3.2); Lymphocytes Percent Auto 15.6 % (18.3-44.2); Mean Corpuscular HGB Conc 31.9 g/dl (32-36); Mean Corpuscular Volume 87.6 fl (80-100); Mean Platelet Volume 11.3 fl (7.4-10.4); Monocytes Absolute Auto 0.8 K/mm3 (0.1-0.6); Neutrophils Absolute Auto 13.1 K/mm3 (1.3-6.7); Neutrophils Percent Auto 78.2 % (45.5-73.1); Platelet Count Result 253 k/mm3 (150-375); Red Blood Count 3.79 M/mm3 (4.2-5.4); Red Cell Distribution Width 13.7 % (11.5-14.5); White Blood Count 16.8 K/mm3 (4.5-10.0)
[2019-10-29 15:14] LABS: INR 1.5; Prothrombin Time 17.6 Seconds (11.1-14.7)
[2019-10-29 15:15] LABS: Partial Thromboplastin Time 27.6 SECONDS (22.3-36.8)
[2019-10-29 15:30] LABS: Troponin I 0.077 ng/mL (0.000-0.034)
[2019-10-29] MEDS: HEPARIN SOD/D5W 100 UNITS/ML 25,000 UNITS/250 ML BAG 10 UNITS IV CONT (15:38)
--- NOTE | 2019-10-29 16:07 | PM.CNCAR ---
Assessment and Plan Assessment and plan (1) Abnormal EKG: Code(s): R94.31 - Abnormal electrocardiogram [ECG] [EKG] Status: Acute Assessment and Plan: Electrocardiographic changes only with intermittent LBBB. (2) Elevated troponin: Code(s): R79.89 - Other specified abnormal findings of blood chemistry Status: Acute Assessment and Plan: Probably secondary to pulmonary embolism and is mildly elevated and peaked. (3) Hyperlipidemia: Code(s): E78.5 - Hyperlipidemia, unspecified Status: Acute (4) Pulmonary embolism with acute cor pulmonale: Code(s): I26.09 - Other pulmonary embolism with acute cor pulmonale Status: Acute Assessment and Plan: On heparin drip. (5) CAD (coronary artery disease): Code(s): I25.10 - Atherosclerotic heart disease of [place] coronary artery without angina pectoris Status: Acute Assessment and Plan: Continue aspirin, should be on a statin, Metoprolol, lisinopril. (6) HTN (hypertension): Code(s): I10 - Essential (primary) hypertension Status: Acute Assessment and Plan: Stable. (7) Carotid stenosis: Code(s): I65.29 - Occlusion and stenosis of unspecified carotid artery Status: Acute Assessment and Plan: Will need carotid duplex study in near future and can be done as an outpatient. History of Present Illness History of Present Illness Consult date/time: 10/29/19 16:07 Consult for elevated troponin and abnormal ekg 73 yr old woman with a history of CAD and stent [place] [address] Shay, carotid stenosis left side with 75% stenosis, DM, hypertension, dyslipidemia, CKD stage III reports that a couple of days ago she was receiving a breathing treatment when suddenly she felt severe headache, chest discomfort, sob. CT chest confirmed RLL pulmonary embolism. Series of troponins shows it went up mildly and peaked at 0.10. EKG shows intermittent LBBB and IVCD with ST-T wave abnormality. She reports nonspecific mild chest discomfort across her chest intermittently. Echo shows normal EF 55-60% with no wall motion abnormalities. Reason For Visit: PE with Elevated Troponin and st depression Review of Systems Constitutional: Constitutional: Reports as per HPI and Reports fatigue Cardiovascular: Cardiovascular: Reports as per HPI, Reports chest pain, Denies leg edema, Denies lightheadedness and Denies palpitations Respiratory: Respiratory: Reports as per HPI and Reports dyspnea Gastrointestinal: Gastrointestinal: Reports as per HPI and Reports abdominal pain Genitourinary: Genitourinary: Reports as per HPI and Denies urinary frequency Musculoskeletal: Musculoskeletal: Reports as per HPI Neurologic: Reports as per HPI and Denies Abnormal speech present [facility] Past Medical History Medical History (Updated 10/29/19 @ 16:12 by Brian Carson DO) Abdominal pain, chronic, epigastric Acute upper respiratory infection CAD (coronary artery disease) Diagnosed in April 2015, OM stent Dr. Shay April 2015. Carotid stenosis Left ICA 75% stenosis Cataract Diabetes mellitus Diverticulosis of colon Diverticulosis of large intestine without perforation or abscess without bleeding HTN (hypertension) Hyperlipidemia Ischemic cardiomyopathy Echo 2015 showed dilated LV EF 40%. Paradoxical septal motion from conduction abnormality + anteroseptal akinesis. Diastolic dysfunction. Labile hypertension Low back pain Lumbosacral radiculopathy at L5 Medical non-compliance Normocytic anemia Sinus tachycardia Stage 3 chronic kidney disease Type II diabetes mellitus Uncontrolled type II diabetes mellitus Surgical History Surgical History (Updated 10/29/19 @ 14:44 by Kami Mitchell NP) Cataract extraction status Bilaterally H/O heart artery stent April 2014 H/O: hysterectomy Social History Social History (Updated 10/29/19 @ 14:50 by Kami Mitchell NP) Social History:
[2019-10-29 18:10] LABS: Glucose Point of Care 137 (65-105)
[2019-10-29 18:27] LABS: Troponin I 0.082 ng/mL (0.000-0.034)
[2019-10-29 21:07] LABS: Glucose Point of Care 191 (65-105)
[2019-10-29 21:29] LABS: Partial Thromboplastin Time 77.7 SECONDS (22.3-36.8)
[2019-10-29 21:47] LABS: Troponin I 0.082 ng/mL (0.000-0.034)
[2019-10-30] VITALS (18 sets, daily range): BP systolic 122–143; BP diastolic 49–87; PULSE 60–78; RESP 18–22; TEMP 36.2–37.1; O2SAT 92–98
[2019-10-30 02:55] LABS: Basophils Percent Auto 0.2 % (0.2-1.2); Eosinophils Absolute Auto 0.2 K/mm3 (0-0.3); Eosinophils Percent Auto 1.3 % (0-4.4); Hematocrit 33.4 % (37.0-47.0); Hemoglobin 10.6 g/dL (12.0-15.0); Immature Granulocyte Absolute 0.06 K/mm3 (0.00-0.031); Immature Granulocyte Percent A 0.5 % (0-0.5); Lymphocytes Absolute Auto 4.22 K/mm3 (0.9-3.2); Lymphocytes Percent Auto 33.4 % (18.3-44.2); Mean Corpuscular HGB Conc 31.7 g/dl (32-36); Mean Corpuscular Hemoglobin 27.6 pg (26-34); Monocytes Absolute Auto 0.6 K/mm3 (0.1-0.6); Neutrophils Absolute Auto 7.6 K/mm3 (1.3-6.7); Neutrophils Percent Auto 59.6 % (45.5-73.1); Platelet Count Result 239 k/mm3 (150-375); Red Blood Count 3.84 M/mm3 (4.2-5.4); Red Cell Distribution Width 13.7 % (11.5-14.5); White Blood Count 12.7 K/mm3 (4.5-10.0)
[2019-10-30 03:09] LABS: Partial Thromboplastin Time 153.7 SECONDS (22.3-36.8)
[2019-10-30 03:14] LABS: Alanine Aminotransferase 19 U/L (4-35); Albumin Level 3.5 g/dL (3.5-5.1); Alkaline Phosphatase 37 U/L (38-126); Aspartate Amino Transferase 18 U/L (14-36); Bilirubin,Total 0.1 mg/dL (0.2-1.3); Blood Urea Nitrogen 48 mg/dL (7-17); Calcium 8.8 mg/dL (8.4-10.2); Carbon Dioxide 25 mmol/L (22-30); Chloride 102 mmol/L (98-107); Cholesterol 150 mg/dL (0-200); Estimated Glomerular Filt Rate 32; Glucose 168 mg/dL (65-105); HDL Direct 36 mg/dL; Potassium 4.4 mmol/L (3.4-5.0); Sodium 136 mmol/L (137-145); Triglycerides 201 mg/dL (<150)
[2019-10-30 03:25] LABS: LDL Cholesterol Direct 92 mg/dL
[2019-10-30 03:32] LABS: Troponin I 0.071 ng/mL (0.000-0.034)
--- NOTE | 2019-10-30 07:23 | ECG_ITS ---
Measurements Intervals [place] Rate: 67 P: 27 CO: 128 QRS: -50 QRSD: 141 T: 56 QT: 427 QTc: 454 Interpretive Statements SINUS RHYTHM LEFT AXIS DEVIATION LEFT BUNDLE BRANCH BLOCK BASELINE ARTIFACT- V5 ABNORMAL ECG Electronically Signed On 10-30-2019 15:53:04 DIRECTOR OF HOME ECONOMICS by Brian Carson D.O.
[2019-10-30] MEDS: FUROSEMIDE 40 MG TABLET PO (09:08)
[2019-10-30] MEDS: METOPROLOL SUCCINATE EXT REL 50 MG TABCR PO (09:08)
[2019-10-30] MEDS: lisinopriL 10 MG TABLET PO (09:08)
[2019-10-30] MEDS: ASPIRIN 81 MG ENTERIC TABLET PO (09:09)
[2019-10-30 09:21] LABS: Partial Thromboplastin Time 86.4 SECONDS (22.3-36.8)
[2019-10-30 09:27] LABS: Glucose Point of Care 213 (65-105)
--- NOTE | 2019-10-30 11:29 | PM.IMPN ---
Progress Note: A&P Assessment and Plan (1) Pulmonary embolism on right: Code(s): I26.99 - Other pulmonary embolism without acute cor pulmonale Status: Acute Assessment and Plan: CTA chest done at [facility] with right-sided PE was small burden. Venous dopplers of lower extremities negative for DVT. Concern for cardiac issues in transfer inpatient switched from Eliquis to heparin drip on admission. Plan to return to Eliquis when able. Possible transfer from IMU if no other evaluation needed by Cardiology. Patient seen by Cardiology earlier today. No further cardiac evaluation needed. No right heart strain noted on echocardiogram. Will discontinue heparin drip and return to Eliquis at 10 mg b.i.d. x1 week then 5 mg b.i.d.. Will transfer to medical floor. (2) Abnormal EKG: Code(s): R94.31 - Abnormal electrocardiogram [ECG] [EKG] Status: Acute Assessment and Plan: Cardiology consulted and appreciate input. Left bundle branch block noted on EKG which has now resolved. No further evaluation planned. Telemetry reviewed on 10/30/2019 with sinus rhythm. (3) Elevated troponin: Code(s): R79.89 - Other specified abnormal findings of blood chemistry Status: Acute Assessment and Plan: Minimal increase in troponin. Result of pulmonary embolism. No additional evaluation. (4) Bronchospasm: Code(s): J98.01 - Acute bronchospasm Status: Acute Assessment and Plan: Chest x-ray with no sign of infectious process. WBC increase but did receive IV steroids at [place]. Will add nebulizer treatments as well as Pulmozyme and guaifenesin. Not requiring oxygen. Most likely result of a viral infection. (5) HTN (hypertension): Qualifiers: Hypertension type: essential hypertension Qualified Code(s): I10 - Essential (primary) hypertension Code(s): I10 - Essential (primary) hypertension Status: Acute Assessment and Plan: Blood pressure reviewed on 10/30/2019 and stable. Continue to monitor on lisinopril and metoprolol. Adjust treatment as needed. (6) Congestive heart failure: Qualifiers: Heart failure type: diastolic Heart failure chronicity: chronic Qualified Code(s): I50.32 - Chronic diastolic (congestive) heart failure Code(s): I50.9 - Heart failure, unspecified Status: Acute Assessment and Plan: Echocardiogram with EF 55-60%, diastolic dysfunction grade 1 and moderate pulmonary hypertension. Cardiology has seen with no further evaluation needed. Continue home lisinopril, metoprolol and furosemide. Will monitor clinically. (7) Diabetes mellitus: Qualifiers: Diabetes mellitus type: type 2 Diabetes mellitus shelter insulin use: with equipment operator intermodal yard use Diabetes mellitus complication status: with kidney complications Diabetes mellitus complication detail: with chronic kidney disease Chronic kidney disease stage: stage 3 (moderate) Qualified Code(s): E11.22 - Type 2 diabetes mellitus with diabetic chronic kidney disease; N18.3 - Chronic kidney disease, stage 3 (moderate); Z79.4 - oysterman (current) use of insulin Code(s): E11.9 - Type 2 diabetes mellitus without complications Status: Acute Assessment and Plan: Last hemoglobin reported to be 7.9. Glucose reviewed on 10/30/2019 and stable. Continue sliding scale insulin. Will continue to monitor. Adjust treatment as needed. Creatinine stable within her baseline at 1.60 today. (8) Anemia: Qualifiers: Anemia type: unspecified type Qualified Code(s): D64.9 - Anemia, unspecified Code(s): D64.9 - Anemia, unspecified Status: Acute Assessment and Plan: Hemoglobin 10.6 today and stable. No signs of bleeding. Will monitor. (9) DVT prophylaxis: Code(s): Z29.9 - Encounter for prophylactic measures, unspecified Status: Acute Assessment and Plan: Returning to [facility] from IV hepa
[2019-10-30 13:03] LABS: Glucose Point of Care 204 (65-105)
--- NOTE | 2019-10-30 13:20 | PM.PNCARD ---
Progress Note: A&P Additional Plan 73-year-old female with CAD and previous PCI details unknown procedure was done at [facility] Acute pulmonary embolism to the right upper lobe patient is systemically anticoagulated with apixaban ECG findings which prompted cardiac consultation yesterday. ECG is primarily remarkable for a rate related left bundle branch block. This does not merit further investigation while she is at [facility] Time Spent With Patient Time with patient: less than 15 minutes Subjective Date/time seen: Date of service: 10/30/19 13:20 Interval history: Follow-up visit for patient with acute pulmonary embolism to the right upper lobe and history of coronary artery disease with previous stenting. Asked to follow up on patient for Dr. Carson who is off today Consult yesterday for abnormal ECG which upon my review clearly demonstrates evidence of a rate related left bundle branch block Patient has no cardiovascular symptoms today Exam Const: General: comfortable and no acute distress HENMT: Mouth: Yes moist mucous membranes Eyes: Sclera: sclerae normal Pupils: Equal, round and reactive pupils present Neck: Neck: supple and no JVD Thyroid: thyroid normal Resp: Effort & Inspection: normal respiratory effort Auscultation: wheezes Other: Mild expiratory wheezing noted Cardio: Rate: regular rate Rhythm: regular rhythm GI: Auscultation: normal bowel sounds Skin: General skin exam: normal color Extrem: General: normal to inspection Objective Data Vital Signs Vital Signs: Vital Signs - 24 hr 10/29/19 13:22 10/29/19 13:30 10/29/19 13:55 Temperature 36.4 C Pulse Rate 73 75 73 Respiratory Rate 18 18 Blood Pressure 156/64 H Pulse Oximetry 96 94 10/29/19 16:00 10/29/19 18:00 10/29/19 19:47 Temperature 36.2 C L 36.4 C L Pulse Rate 70 73 66 Respiratory Rate 20 16 Blood Pressure 137/59 L 118/62 Pulse Oximetry 96 95 10/29/19 20:00 10/29/19 22:00 10/29/19 23:43 Temperature 36.4 C Pulse Rate 73 60 61 Respiratory Rate 16 Blood Pressure 130/49 L Pulse Oximetry 92 10/30/19 00:00 10/30/19 02:00 10/30/19 04:00 Temperature 36.9 C Pulse Rate 60 62 64 Respiratory Rate 18 Blood Pressure 122/49 L Pulse Oximetry 94 10/30/19 06:00 10/30/19 08:00 10/30/19 09:03 Temperature 36.2 C L Pulse Rate 64 69 78 Respiratory Rate 22 H Blood Pressure 143/53 H Pulse Oximetry 92 10/30/19 09:08 10/30/19 10:00 10/30/19 11:49 Temperature 36.4 C L Pulse Rate 73 69 65 Respiratory Rate 20 Blood Pressure 142/67 H Pulse Oximetry 97 Intake/Output Intake/Output: Intake & Output 10/27/19 10/28/19 10/29/19 10/30/19 23:59 23:59 23:59 23:59 Intake Total 263 948 Output Total 1600 0132 Balance -5854 -280 Meds/Results Medications: Active Medications Generic Name Dose Route Start Last Admin Trade Name Freq PRN Reason Stop Dose Admin Albuterol 5 mg 10/30/19 14:00 Albuterol Sulf Neb 2.5mg/0.5ml INHALATION Q6HRT NELY Aspirin 81 mg 10/30/19 09:00 10/30/19 09:09 Aspirin Ec PO 81 mg QAM NELY Administration Dextrose 12.5 gm 10/29/19 18:18 Dextrose 50% Syringe IV PUSH PRN PRN Hypoglycemia Protocol Dornase Saud 2.5 mg 10/30/19 20:00 Pulmozyme INHALATION Q12HRT NELY Furosemide 40 mg 10/30/19 09:00 10/30/19 09:08 Lasix Tablet PO 40 mg DAILY NELY Administration Glucagon 1 mg 10/29/19 18:18 Glucagon For Inj IM PRN PRN Hypoglycemia Protocol Glucose 15 gm 10/29/19 18:18 Glutose 15 PO PRN PRN Hypoglycemia Protocol Guaifenesin 1,200 mg 10/29/19 22:15 10/30/19 09:08 Mucinex 12 Hr Tab PO 1,200 mg Q12HR NELY Administration Heparin Sodium (Porcine) 4,500 units 10/29/19 14:27 Heparin Sodium IV PUSH PRN PRN aPTT less than 55 seconds Heparin Sodium (Porcine) 2,000 units 10/29/19 14:27 Heparin Sodium
[2019-10-30] MEDS: INSULIN ASPART (*BKC) 100 UNITS/ML SUB-Q ×2 (13:39→22:00)
[2019-10-30] MEDS: IPRATROPIUM BR 0.02% INH SOLN 0.5 MG/2.5 ML VIAL INHALATION ×2 (14:46→20:24)
[2019-10-30] MEDS: ALBUTEROL SULFATE NEB 2.5 MG/0.5 ML INH 5 MG INHALATION ×2 (14:46→20:24)
[2019-10-30 15:16] LABS: Partial Thromboplastin Time 63.6 SECONDS (22.3-36.8)
[2019-10-30] MEDS: HEPARIN SODIUM 5,000 UNITS/ML VIAL 2000 UNITS IV PUSH (15:54)
[2019-10-30 16:45] LABS: Glucose Point of Care 162 (65-105)
--- NOTE | 2019-10-30 18:18 | PC.NURSE ---
This patient, Tran Bryan, was received from [ IMU] on 10/30/19 at 1818. Personal belongings list checked and signed. Patient/family oriented to unit policies and routines
--- NOTE | 2019-10-30 18:29 | PC.NURSE ---
Pt transfered to [facility]. All belongings sent with patient.
[2019-10-30] MEDS: DORNASE ALFA INH SOLN 1 MG/ML 2.5 ML AMP 2.5 MG INHALATION (20:30)
[2019-10-30] MEDS: APIXABAN 5 MG TABLET 10 MG PO (20:37)
[2019-10-30 21:45] LABS: Glucose Point of Care 332 (65-105)
[2019-10-30 21:45] LABS: Glucose Point of Care 308 (65-105)
[2019-10-31] VITALS (7 sets, daily range): BP systolic 96–124; BP diastolic 60–62; PULSE 70–90; RESP 16–18; TEMP 36.5; O2SAT 94
[2019-10-31] MEDS: IPRATROPIUM BR 0.02% INH SOLN 0.5 MG/2.5 ML VIAL INHALATION ×2 (02:32→07:59)
[2019-10-31] MEDS: ALBUTEROL SULFATE NEB 2.5 MG/0.5 ML INH 5 MG INHALATION ×2 (02:32→07:59)
[2019-10-31 06:31] LABS: Hematocrit 34.8 % (37.0-47.0); Hemoglobin 11.1 g/dL (12.0-15.0); Mean Corpuscular HGB Conc 31.9 g/dl (32-36); Mean Corpuscular Hemoglobin 27.5 pg (26-34); Mean Corpuscular Volume 86.1 fl (80-100); Mean Platelet Volume 11.3 fl (7.4-10.4); Platelet Count Result 242 k/mm3 (150-375); Red Blood Count 4.04 M/mm3 (4.2-5.4); Red Cell Distribution Width 13.9 % (11.5-14.5); White Blood Count 8.3 K/mm3 (4.5-10.0)
[2019-10-31 06:40] LABS: Blood Urea Nitrogen 47 mg/dL (7-17); Carbon Dioxide 24 mmol/L (22-30); Chloride 100 mmol/L (98-107); Estimated Glomerular Filt Rate 37; Glucose 211 mg/dL (65-105); Magnesium 1.8 mg/dL (1.6-2.3); Potassium 4.3 mmol/L (3.4-5.0); Sodium 136 mmol/L (137-145)
[2019-10-31] MEDS: DORNASE ALFA INH SOLN 1 MG/ML 2.5 ML AMP 2.5 MG INHALATION (08:00)
[2019-10-31 08:30] LABS: Glucose Point of Care 213 (65-105)
[2019-10-31] MEDS: INSULIN ASPART (*BKC) 100 UNITS/ML SUB-Q ×2 (08:35→12:07)
[2019-10-31] MEDS: ONDANSETRON INJ 4 MG/2 ML VIAL IV PUSH (08:42)
[2019-10-31] MEDS: ASPIRIN 81 MG ENTERIC TABLET PO (08:45)
[2019-10-31] MEDS: METOPROLOL SUCCINATE EXT REL 50 MG TABCR PO (08:46)
[2019-10-31] MEDS: lisinopriL 10 MG TABLET PO (08:46)
[2019-10-31] MEDS: APIXABAN 5 MG TABLET 10 MG PO (08:46)
[2019-10-31] MEDS: FUROSEMIDE 40 MG TABLET PO (08:49)
--- NOTE | 2019-10-31 09:31 | PM.PNCARD ---
Progress Note: A&P Assessment and Plan (1) Bronchospasm: Code(s): J98.01 - Acute bronchospasm Status: Acute Assessment and Plan: Will need PFT as outpatient. (2) Carotid stenosis: Code(s): I65.29 - Occlusion and stenosis of unspecified carotid artery Status: Acute Assessment and Plan: Will need outpatient carotid duplex study. (3) Elevated troponin: Code(s): R79.89 - Other specified abnormal findings of blood chemistry Status: Acute Assessment and Plan: Mild and peaked and related to pulmonary embolism/bronchospasm. No ACS. (4) Hyperlipidemia: Qualifiers: Hyperlipidemia type: unspecified Qualified Code(s): E78.5 - Hyperlipidemia, unspecified Code(s): E78.5 - Hyperlipidemia, unspecified Status: Acute Assessment and Plan: Start Pravastatin 10 mg daily. (5) CAD (coronary artery disease): Code(s): I25.10 - Atherosclerotic heart disease of [place] coronary artery without angina pectoris Status: Acute Assessment and Plan: January d/c home from cardiology standpoint. F/U with me in 1 week. (6) HTN (hypertension): Qualifiers: Hypertension type: essential hypertension Qualified Code(s): I10 - Essential (primary) hypertension Code(s): I10 - Essential (primary) hypertension Status: Acute Assessment and Plan: Stable. (7) Pulmonary embolism on right: Code(s): I26.99 - Other pulmonary embolism without acute cor pulmonale Status: Acute Assessment and Plan: On Eliquis. Subjective Date/time seen: 10/31/19 09:31 Reports some coughing but no chest pain or sob. Exam Const: General: comfortable and no acute distress Neck: Neck: no JVD Resp: Effort & Inspection: normal respiratory effort Auscultation: no crackles, no rales, no rhonchi and wheezes Other: Slight wheeze in left lung Cardio: Rate: regular rate Rhythm: regular rhythm Heart sounds: no murmurs GI: Inspection: non-distended Neuro: Speech: normal speech Extrem: Right lower extremity: no edema Left lower extremity: no edema Objective Data Vital Signs Vital Signs: Vital Signs - 24 hr 10/30/19 10:00 10/30/19 11:49 10/30/19 12:00 Temperature 97.5 F L Pulse Rate 69 65 68 Respiratory Rate 20 Blood Pressure 142/67 H Pulse Oximetry 97 10/30/19 14:00 10/30/19 14:48 10/30/19 14:56 Temperature Pulse Rate 73 61 64 Respiratory Rate 20 20 Blood Pressure Pulse Oximetry 10/30/19 16:00 10/30/19 18:23 10/30/19 20:30 Temperature 98.8 F 98.1 F Pulse Rate 64 70 63 Respiratory Rate 18 18 20 Blood Pressure 124/87 141/58 H Pulse Oximetry 96 96 10/30/19 20:40 10/30/19 22:00 10/31/19 02:34 Temperature 98.1 F Pulse Rate 66 72 70 Respiratory Rate 20 18 16 Blood Pressure 127/56 L Pulse Oximetry 98 10/31/19 02:45 10/31/19 06:00 10/31/19 07:45 Temperature 97.7 F Pulse Rate 75 72 Respiratory Rate 16 18 Blood Pressure 96/60 L 124/62 Pulse Oximetry 94 10/31/19 08:00 10/31/19 08:08 10/31/19 08:46 Temperature Pulse Rate 72 74 90 Respiratory Rate 16 16 Blood Pressure Pulse Oximetry Intake/Output Intake/Output: Intake & Output 10/28/19 10/29/19 10/30/19 10/31/19 23:59 23:59 23:59 23:59 Intake Total 263 1488 550 Output Total [phone] [facility] -[phone] Meds/Results Medications: Active Medications Generic Name Dose Route Start Last Admin Trade Name Freq PRN Reason Stop Dose Admin Albuterol 5 mg 10/30/19 14:00 10/31/19 07:59 Albuterol Sulf Neb 2.5mg/0.5ml INHALATION 5 mg Q6HRT NELY Administration Apixaban 10 mg 10/30/19 21:00 10/31/19 08:46 Eliquis PO 10 mg Q12HR NELY Administration Aspirin 81 mg 10/30/19 09:00 10/31/19 08:45 Aspirin Ec PO 81 mg QAM NELY Administration Dextrose 12.5 gm 10/29/19 18:18 Dextrose 50% Syringe IV PUSH PRN PRN Hypoglycemia Protoco
[2019-10-31 12:00] LABS: Glucose Point of Care 266 (65-105)
--- NOTE | 2019-10-31 14:19 | PM.IMPN ---
Progress Note: A&P Assessment and Plan (1) Pulmonary embolism on right: Code(s): I26.99 - Other pulmonary embolism without acute cor pulmonale Status: Acute Assessment and Plan: CTA chest done at [facility] with right-sided PE was small burden. Venous dopplers of lower extremities negative for DVT. No right heart strain noted on echocardiogram. Seen by cardiology with no further evaluation needed. Now back Eliquis stable. On room air. Will discharge today. (2) Abnormal EKG: Code(s): R94.31 - Abnormal electrocardiogram [ECG] [EKG] Status: Acute Assessment and Plan: Cardiology consulted and appreciate input. Left bundle branch block noted on initial EKG which has now resolved. No further evaluation planned. (3) Elevated troponin: Code(s): R79.89 - Other specified abnormal findings of blood chemistry Status: Acute Assessment and Plan: Minimal increase in troponin. Result of pulmonary embolism. No additional evaluation. (4) Bronchospasm: Code(s): J98.01 - Acute bronchospasm Status: Acute Assessment and Plan: Chest x-ray with no sign of infectious process. WBC return to normal. Has been on nebulizer treatments, Pulmozyme and guaifenesin. Not requiring oxygen. Most likely result of viral infection. Will send home with albuterol inhaler and Mucinex. May need PFTs as outpatient. (5) HTN (hypertension): Qualifiers: Hypertension type: essential hypertension Qualified Code(s): I10 - Essential (primary) hypertension Code(s): I10 - Essential (primary) hypertension Status: Acute Assessment and Plan: Blood pressure reviewed on 10/31/2019 and stable. Continue lisinopril and metoprolol. (6) Congestive heart failure: Qualifiers: Heart failure type: diastolic Heart failure chronicity: chronic Qualified Code(s): I50.32 - Chronic diastolic (congestive) heart failure Code(s): I50.9 - Heart failure, unspecified Status: Acute Assessment and Plan: Echocardiogram with EF 55-60%, diastolic dysfunction grade 1 and moderate pulmonary hypertension. Cardiology has seen with no further evaluation needed. Continue home lisinopril, metoprolol and furosemide. (7) Diabetes mellitus: Qualifiers: Diabetes mellitus type: type 2 Diabetes mellitus salvage determiner insulin use: with salvage determiner use Diabetes mellitus complication status: with kidney complications Diabetes mellitus complication detail: with chronic kidney disease Chronic kidney disease stage: stage 3 (moderate) Qualified Code(s): E11.22 - Type 2 diabetes mellitus with diabetic chronic kidney disease; N18.3 - Chronic kidney disease, stage 3 (moderate); Z79.4 - snf (current) use of insulin Code(s): E11.9 - Type 2 diabetes mellitus without complications Status: Acute Assessment and Plan: Last hemoglobin reported to be 7.9. Glucose reviewed on 10/31/2019 with slight increase this morning but has had some steroids while in [place]. Can monitor as outpatient. Creatinine remains within her baseline at 1.40 today. Follow as outpatient. (8) Anemia: Qualifiers: Anemia type: unspecified type Qualified Code(s): D64.9 - Anemia, unspecified Code(s): D64.9 - Anemia, unspecified Status: Acute Assessment and Plan: Hemoglobin 11.1 today and stable. No signs of bleeding. (9) DVT prophylaxis: Code(s): Z29.9 - Encounter for prophylactic measures, unspecified Status: Acute Assessment and Plan: Now on Eliquis. Time Spent With Patient Time with patient: 15 - 25 minutes Subjective Date/time seen: 10/31/19 14:19 Interval history: Date of Service: 10/31/2019. Transferred from [facility] due to PE and EKG changes. Feeling much better today. Does still have cough but no shortness of breath. No chest pain or pressure. No abdominal pain. No nausea or vomiting.
--- NOTE | 2019-10-31 19:56 | PM.DS ---
DS: Diagnosis Admitting Diagnosis Admitting Diagnosis: Abnormal electrocardiogram [ECG] [EKG] Discharge Diagnosis (1) Pulmonary embolism on right: Code(s): I26.99 - Other pulmonary embolism without acute cor pulmonale Status: Acute (2) Abnormal EKG: Code(s): R94.31 - Abnormal electrocardiogram [ECG] [EKG] Status: Acute (3) Elevated troponin: Code(s): R79.89 - Other specified abnormal findings of blood chemistry Status: Acute (4) Bronchospasm: Code(s): J98.01 - Acute bronchospasm Status: Acute (5) HTN (hypertension): Qualifiers: Hypertension type: essential hypertension Qualified Code(s): I10 - Essential (primary) hypertension Code(s): I10 - Essential (primary) hypertension Status: Acute (6) Congestive heart failure: Qualifiers: Heart failure type: diastolic Heart failure chronicity: chronic Qualified Code(s): I50.32 - Chronic diastolic (congestive) heart failure Code(s): I50.9 - Heart failure, unspecified Status: Acute (7) Diabetes mellitus: Qualifiers: Diabetes mellitus type: type 2 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 Diabetes mellitus complication status: with kidney complications Diabetes mellitus complication detail: with chronic kidney disease Chronic kidney disease stage: stage 3 (moderate) Qualified Code(s): E11.22 - Type 2 diabetes mellitus with diabetic chronic kidney disease; N18.3 - Chronic kidney disease, stage 3 (moderate); Z79.4 - shelter (current) use of insulin Code(s): E11.9 - Type 2 diabetes mellitus without complications Status: Acute (8) Anemia: Qualifiers: Anemia type: unspecified type Qualified Code(s): D64.9 - Anemia, unspecified Code(s): D64.9 - Anemia, unspecified Status: Acute DS: Summary Hospital Course Reason for hospitalization: Pulmonary embolism with elevated troponin and abnormal EKG. Hospital Course: Date of Service of Discharge: October 31, 2019. History of Present Illness: Patient is a 73-year-old female directly admitted from [facility] due to elevated troponin and abnormal EKG in setting of diagnosis of pulmonary embolism. Patient had presented to the emergency room at [place] on 10/27/2019 with worsening shortness of breath, low-grade fever and chills. Patient also with productive cough. Patient know she had had 2 rounds of antibiotics as an outpatient. On presentation to the emergency room in [place], she was diagnosed with pulmonary embolism. She was subsequently admitted for treatment and started on Eliquis. An echocardiogram was performed at [facility] with EF of 55-60% and grade 1 diastolic dysfunction. Venous Dopplers of the lower extremities were negative for DVT. Cardiology here was 1st notified concerning possible transfer to [facility] due to concern for abnormal EKG and elevated troponin level. It was determined, however, patient was to establish with Dr. Carson. Hospitalist service was asked to admit with cardiology consult. Course in Hospital: On direct admission in transfer from [facility], patient was placed in the intermediate care unit. She was initially placed on heparin while awaiting cardiology consultation. She was seen in consultation by Dr. Carson who did review all cardiac testing done at outside hospital. Patient was noted to have an intermittent left bundle branch block but was not felt to have any acute cardiac issue and no further testing was done. Left bundle branch block did resolve will still on telemetry. She was transitioned back from heparin to Eliquis as result. She was able to moved to the medical floor on 10/30/2019 where she remained for the duration of her stay. As noted, patient was transitioned back to Eliquis on the evening of 10/30/2019 as therapeutic dose. Patient with small clot burden on CTA chest done at outside hospital. Patient
== END 2019-10-31 15:20 | disposition home or self-care (01) | DRG 176 ==
LOC: ANHIMU 17:25 → ANH3MEDSUR 10-30 20:58 → ANHIMU 11-04 08:23
PROVIDERS: Family Medicine; Internal Medicine Cardiovascular Disease; Nurse Practitioner; Admitting Provider Family Medicine; Visit Provider Hospitalist
DX: I26.99 Other pulmonary embolism without acute cor pulmonale (principal); I50.32 Chronic diastolic (congestive) heart failure; I13.0 Hypertensive heart and chronic kidney disease with heart failure and stage 1 through stage 4 chronic kidney disease, or unspecified chronic kidney disease; I25.10 Atherosclerotic heart disease of native coronary artery without angina pectoris; I65.22 Occlusion and stenosis of left carotid artery; N18.3 Chronic kidney disease, stage 3 (moderate); Z98.41 Cataract extraction status, right eye; Z98.42 Cataract extraction status, left eye; E11.22 Type 2 diabetes mellitus with diabetic chronic kidney disease; Z95.5 Presence of coronary angioplasty implant and graft; K57.30 Diverticulosis of large intestine without perforation or abscess without bleeding; E78.5 Hyperlipidemia, unspecified; I25.5 Ischemic cardiomyopathy; M54.17 Radiculopathy, lumbosacral region; Z90.710 Acquired absence of both cervix and uterus; D64.9 Anemia, unspecified; I44.7 Left bundle-branch block, unspecified; J98.01 Acute bronchospasm; Z79.4 Long term (current) use of insulin
CPT/HCPCS: 36415; 80048; 80053; 80061; 83735; 84439; 84484; 85025; 85027; 85610; 85730; 87081; 93005; 94640; A9270; J1644; J1815; J2405

== ENCOUNTER 2019-11-03 13:33 | Outpatient (CLI) | payer MEDICARE, OTHER, SELFPAY ==
--- NOTE | ~2019-11-03 | US_ITS ---
EXAMINATION: US carotid duplex BI DATE: 11/03/2019 14:20 INDICATION: Occlusion and stenosis of unspecified carotid artery. TECHNIQUE: Grayscale, color Doppler, and pulsed Doppler images of the cervical carotid arteries were obtained. The degree of vessel stenosis is placed in one of the following categories: normal, <50%, 5 0-69%, >=70% but less than near-occlusion, near-occlusion, or total occlusion. Note that percent sten osis relative to normal distal artery lumen diameter is indirectly measured from velocity measurement s as described by Yan, et al. Radiology 2003; 229:340-346. COMPARISON: None. FINDINGS: There is a 2.6 cm solid, isoechoic, stvkn-iwhi-lkgm nodule with ill-defined margin without echogenic foci in left thyroid lobe (TI-RADS TR3). RIGHT: The right common carotid artery (CCA) peak systolic velocity (PSV) is 77 cm/s. The right internal car otid artery (ICA) PSV is 151 cm/s. The right ICA end-diastolic velocity (EDV) is 30 cm/s. The right I CA/CCA PSV ratio is 1.9. Grayscale and color Doppler images yield an estimate of <50% diameter reduct ion from plaque in the ICA. There is antegrade flow in the right vertebral artery. LEFT: The left CCA PSV is 59 cm/s. The left ICA PSV is 298 cm/s. The left ICA EDV is 70 cm/s. The left ICA/ CCA PSV ratio is 4.7. Grayscale and color Doppler images yield an estimate of >=50% diameter reductio n from plaque in the ICA. There is antegrade flow in the left vertebral artery. IMPRESSION: 1. <50% stenosis in the right internal carotid artery. 2. >=70% stenosis in the left internal carotid artery, but less than near occlusion. 3. Left thyroid nodule. Ultrasound-guided fine-needle aspiration is recommended. Reviewed, dictated and finalized at location A. K TECHNICIAN IMPRESSION: 1. <50% stenosis in the right internal carotid artery. 2. >=70% stenosis in the left internal carotid artery, but less than near occlu emily. 3. Left thyroid nodule. Ultrasound-guided fine-needle aspiration is recommended .
== END 2019-11-03 13:34 | disposition home or self-care (01) ==
LOC: CHSIMG 13:35
PROVIDERS: PCP Internal Medicine; Visit Provider Internal Medicine Cardiovascular Disease
DX: I65.29 Occlusion and stenosis of unspecified carotid artery (principal)
CPT/HCPCS: 93880

== ENCOUNTER 2019-11-06 09:27 | Outpatient (CLI) | payer MEDICARE, SELFPAY ==
[2019-11-06 09:53] LABS: INR 1.1; Prothrombin Time 11.2 Seconds (9.64-11.0)
== END 2019-11-06 09:28 | disposition home or self-care (01) ==
LOC: CHSLAB 09:29
PROVIDERS: PCP Internal Medicine; Visit Provider Internal Medicine Cardiovascular Disease
DX: I48.0 Paroxysmal atrial fibrillation (principal)
CPT/HCPCS: 36415; 85610

== ENCOUNTER 2019-11-16 09:37 | Outpatient (CLI) | payer MEDICARE, OTHER, SELFPAY | END 2019-11-16 09:38 | disposition home or self-care (01) | PROVIDERS: PCP Internal Medicine; Visit Provider Internal Medicine Cardiovascular Disease | DX: R06.00 Dyspnea, unspecified (principal) | CPT/HCPCS: 94060; 94726; 94729 ==

== ENCOUNTER 2019-11-19 16:08 | Outpatient (CLI) | payer MEDICARE, SELFPAY ==
[2019-11-19 17:11] LABS: INR 1.1; Prothrombin Time 11.4 Seconds (9.64-11.0)
== END 2019-11-19 16:09 | disposition home or self-care (01) ==
LOC: CHSLAB 16:13
PROVIDERS: PCP Internal Medicine; Visit Provider Internal Medicine Cardiovascular Disease
DX: I48.0 Paroxysmal atrial fibrillation (principal)
CPT/HCPCS: 36415; 85610

== ENCOUNTER 2019-12-08 08:24 | Outpatient (CLI) | payer MEDICARE, OTHER, SELFPAY ==
--- NOTE | ~2019-12-08 | CT_ITS ---
EXAMINATION: CTA neck DATE: 12/08/2019 09:49 INDICATION: Occlusion and stenosis of carotid artery. TECHNIQUE: Computed tomographic angiography (CTA) of the neck was performed with 100 mL Omnipaque-350 intravenous contrast. Automated exposure control and iterative reconstruction technique were employe d. The dose-length product was 471.20 mGy-cm. Maximum intensity projection 3D-reconstructions were cr eated by the technologist on a separate workstation. COMPARISON: Ultrasound 11/03/2019 FINDINGS: There is a multinodular goiter with the largest nodule measuring approximately 2.1 cm. Ther e are no pathologically enlarged lymph nodes. Right vertebral artery is dominant. There is no signifi cant stenosis of the vertebral arteries. There is plaque in the proximal internal carotid arteries. T here is 12% stenosis of the proximal right internal carotid artery relative to normal distal artery l umen diameter (NASCET criteria). There is 63% stenosis of the proximal left internal carotid artery r elative to normal distal artery lumen diameter. There is severe cervical and thoracic spondylosis. IMPRESSION: 1. 12% stenosis of the proximal right internal carotid artery relative to normal distal artery lumen diameter (NASCET criteria). 2. 63% stenosis of the proximal left internal carotid artery relative to normal distal artery lumen d iameter. 3. Multinodular goiter. Consider thyroid ultrasound for risk stratification. Reviewed, dictated and finalized at location A. IMPRESSION: 1. 12% stenosis of the proximal right internal carotid artery relative to ella l distal artery lumen diameter (NASCET criteria). 2. 63% stenosis of the proximal left internal carotid artery relative to normal distal artery lumen diameter. 3. Multinodular goiter. Consider thyroid ultrasound for risk stratification.
== END 2019-12-08 08:25 | disposition home or self-care (01) ==
LOC: CHSIMG 08:26
PROVIDERS: PCP Internal Medicine; Visit Provider Internal Medicine Cardiovascular Disease
DX: I65.29 Occlusion and stenosis of unspecified carotid artery (principal)
CPT/HCPCS: 70498; Q9965

== ENCOUNTER 2019-12-30 07:28 | Outpatient (CLI) | payer MEDICARE, SELFPAY ==
[2019-12-30 07:42] LABS: Basophils Absolute Auto 0.08 K/mm3 (0.00-0.10); Basophils Percent Auto 1.1 % (0.0-1.0); Eosinophils Percent Auto 5.6 % (1.0-6.0); Hematocrit 37.6 % (35.0-42.0); Hemoglobin 12.1 g/dL (11.7-13.8); Immature Granulocyte Absolute 0.02 K/mm3 (0.00-0.00); Immature Granulocyte Percent A 0.3 % (0.0-0.0); Lymphocytes Absolute Auto 2.18 K/mm3 (1.10-4.50); Lymphocytes Percent Auto 30.5 % (18.0-42.0); Mean Corpuscular HGB Conc 32.2 g/dL (32.0-36.0); Mean Corpuscular Hemoglobin 28.1 pg (27.0-31.0); Mean Corpuscular Volume 87.2 fL (78.0-102.0); Mean Platelet Volume 10.4 fl (9.2-11.8); Monocytes Absolute Auto 0.49 K/mm3 (0.10-0.90); Monocytes Percent Auto 6.9 % (2.0-11.0); Neutrophils Percent Auto 55.6 % (50.0-70.0); Platelet Count Result 239 K/mm3 (150-420); Red Blood Count 4.31 M/mm3 (4.20-5.40); Red Cell Distribution Width 13.8 % (11.6-14.4); White Blood Count 7.2 K/mm3 (4.8-10.8)
[2019-12-30 07:58] LABS: Prothrombin Time 52.9 Seconds (9.64-11.0)
[2019-12-30 08:10] LABS: Creatinine Urine 167.97 mg/dL (40-278)
[2019-12-30 08:11] LABS: MALB Creatinine Ratio 47.3 mg/g (0-30); Microalbumin Urine Random 79.5 mg/L
[2019-12-30 08:12] LABS: Hemoglobin A1C 8.2 % (<5.7)
[2019-12-30 08:20] LABS: INR 5.4
[2019-12-30 08:42] LABS: Alanine Aminotransferase 24 U/L (14-59); Albumin Level 3.8 g/dL (3.4-5.0); Alkaline Phosphatase 62 U/L (46-116); Anion Gap 10.8 mmol/L (7-16); Aspartate Amino Transferase 17 U/L (15-37); Bilirubin,Total 0.2 mg/dL (0.00-1.00); Blood Urea Nitrogen 36 mg/dL (7-18); Calcium 8.8 mg/dL (8.5-10.1); Carbon Dioxide 32 mmol/L (21-32); Chloride 104 mmol/L (98-108); Cholesterol 187 mg/dL (0-200); Estimated Glomerular Filt Rate 31; Glucose 185 mg/dL (70-99); HDL Direct 43 mg/dL (40-60); LDL Cholesterol Calculated 92 mg/dL (<130); Osmolality Calculated 307 mOsm/kg (285-295); Potassium 4.8 mmol/L (3.5-5.1); Sodium 142 mmol/L (136-145); Total Protein 6.8 g/dL (6.4-8.2); Triglycerides 261 mg/dL (0-150)
== END 2019-12-30 07:29 | disposition home or self-care (01) ==
LOC: CHSLAB 07:30
PROVIDERS: PCP Internal Medicine; Visit Provider Internal Medicine Cardiovascular Disease
DX: I48.0 Paroxysmal atrial fibrillation (principal); I10 Essential (primary) hypertension; E78.5 Hyperlipidemia, unspecified; E11.9 Type 2 diabetes mellitus without complications; I25.10 Atherosclerotic heart disease of native coronary artery without angina pectoris
CPT/HCPCS: 36415; 80053; 80061; 82043; 83036; 85025; 85610

== ENCOUNTER 2020-01-04 11:08 | Outpatient (RCR) | payer MEDICARE, SELFPAY ==
[2019-11-25 11:27] LABS: INR 3.5; Prothrombin Time 35.1 Seconds (9.64-11.0)
[2019-12-02 14:41] LABS: INR 2.5; Prothrombin Time 25.4 Seconds (9.64-11.0)
[2019-12-08 08:48] LABS: Estimated Glomerular Filt Rate 33
[2019-12-16 11:35] LABS: Prothrombin Time 29.4 Seconds (9.64-11.0)
[2020-01-04 11:37] LABS: Prothrombin Time 10.6 Seconds (9.64-11.0)
== END 2020-02-23 23:59 | disposition home or self-care (01) ==
LOC: CHSLAB 11:08
PROVIDERS: PCP Internal Medicine; Visit Provider Internal Medicine Cardiovascular Disease
DX: I48.0 Paroxysmal atrial fibrillation (principal)
CPT/HCPCS: 36415; 85610

== ENCOUNTER 2020-01-11 16:22 | Outpatient (CLI) | payer MEDICARE, SELFPAY ==
[2020-01-11 16:49] LABS: INR 1.9; Prothrombin Time 19.6 Seconds (9.64-11.0)
[2020-01-11 17:34] LABS: Free T3 2.87 pg/mL (2.18-3.98); Free T4 Free Thyroxine 1.31 ng/dL (0.76-1.46); Thyroid Stimulating Hormone 0.49 uIU/mL (0.36-3.74)
== END 2020-01-11 16:23 | disposition home or self-care (01) ==
PROVIDERS: PCP Internal Medicine; Visit Provider Internal Medicine
DX: I48.0 Paroxysmal atrial fibrillation (principal); E04.9 Nontoxic goiter, unspecified
CPT/HCPCS: 36415; 84439; 84443; 84481; 85610

== ENCOUNTER 2020-01-12 11:56 | Outpatient (CLI) | payer MEDICARE, OTHER, SELFPAY ==
--- NOTE | ~2020-01-12 | US_ITS ---
EXAMINATION: US thyroid DATE: 01/12/2020 12:42 INDICATION: Goiter TECHNIQUE: Multiple ultrasound images of the thyroid were obtained. COMPARISON: Carotid CT angiogram dated 12/08/[address] dated 11/19/2018 FINDINGS: The right thyroid lobe measures 5.0 x 1.8 x 1.6 cm. The left thyroid lobe measures 4.3 x 2.0 x 2.8 c m. There are multiple bilateral thyroid nodules. On the right the largest is a almost entirely cysti c TI RADS 1 nodule which measures 11 mm in maximal diameter. The next largest is a 9 mm wider than ta ll well-defined solid hypoechoic nodule without echogenic foci (TI-RADS 4, moderately suspicious , FN A if >=1.5 cm, annual followup is >1 cm). There are a couple smaller similar-appearing nodules in the right thyroid. In the left thyroid lobe there couple heterogeneous predominantly solid hypoechoic no dules which are also wider than tall with relatively well-defined margins and without echogenic foci measuring 2.6, 1.4 cm and 0.6 cm in maximal diameters, all also TI RADS 4. IMPRESSION: 1. Multinodular goiter. Ultrasound-guided biopsy would be recommended for the largest 2.6 cm TI RADS 4 nodule in the left thyroid. Reviewed, dictated and finalized at location A. IMPRESSION: 1. Multinodular goiter. Ultrasound-guided biopsy would be recommended for the l argest 2.6 cm TI RADS 4 nodule in the left thyroid.
== END 2020-01-12 11:57 | disposition home or self-care (01) ==
LOC: CHSIMG 11:58
PROVIDERS: PCP Internal Medicine; Visit Provider Internal Medicine
DX: E04.9 Nontoxic goiter, unspecified (principal)
CPT/HCPCS: 76536

== ENCOUNTER 2020-01-20 11:02 | Outpatient (CLI) | payer MEDICARE, SELFPAY ==
[2020-01-20 11:20] LABS: Basophils Absolute Auto 0.06 K/mm3 (0.00-0.10); Basophils Percent Auto 0.7 % (0.0-1.0); Eosinophils Absolute Auto 0.29 K/mm3 (0.02-0.50); Eosinophils Percent Auto 3.5 % (1.0-6.0); Hemoglobin 11.5 g/dL (11.7-13.8); Immature Granulocyte Absolute 0.03 K/mm3 (0.00-0.00); Immature Granulocyte Percent A 0.4 % (0.0-0.0); Lymphocytes Absolute Auto 2.43 K/mm3 (1.10-4.50); Lymphocytes Percent Auto 29.6 % (18.0-42.0); Mean Corpuscular HGB Conc 31.9 g/dL (32.0-36.0); Mean Corpuscular Hemoglobin 27.7 pg (27.0-31.0); Mean Corpuscular Volume 86.7 fL (78.0-102.0); Mean Platelet Volume 10.2 fl (9.2-11.8); Monocytes Absolute Auto 0.43 K/mm3 (0.10-0.90); Monocytes Percent Auto 5.2 % (2.0-11.0); Neutrophils Percent Auto 60.6 % (50.0-70.0); Platelet Count Result 247 K/mm3 (150-420); Red Blood Count 4.15 M/mm3 (4.20-5.40); Red Cell Distribution Width 14.2 % (11.6-14.4); White Blood Count 8.2 K/mm3 (4.8-10.8)
[2020-01-20 11:31] LABS: INR 3.1; Prothrombin Time 30.8 Seconds (9.64-11.0)
[2020-01-20 11:51] LABS: Alanine Aminotransferase 31 U/L (14-59); Albumin Level 3.7 g/dL (3.4-5.0); Alkaline Phosphatase 46 U/L (46-116); Anion Gap 15.3 mmol/L (7-16); Aspartate Amino Transferase 21 U/L (15-37); Bilirubin,Total 0.4 mg/dL (0.00-1.00); Blood Urea Nitrogen 30 mg/dL (7-18); Calcium 8.7 mg/dL (8.5-10.1); Carbon Dioxide 27 mmol/L (21-32); Chloride 104 mmol/L (98-108); Estimated Glomerular Filt Rate 34; Glucose 153 mg/dL (70-99); Osmolality Calculated 303 mOsm/kg (285-295); Potassium 4.3 mmol/L (3.5-5.1); Sodium 142 mmol/L (136-145); Total Protein 6.7 g/dL (6.4-8.2)
== END 2020-01-20 11:03 | disposition home or self-care (01) ==
PROVIDERS: PCP Internal Medicine; Visit Provider Internal Medicine
DX: R60.9 Edema, unspecified (principal); N18.3 Chronic kidney disease, stage 3 (moderate); I48.0 Paroxysmal atrial fibrillation; I50.9 Heart failure, unspecified
CPT/HCPCS: 36415; 80053; 83880; 85025; 85610

== ENCOUNTER 2020-02-03 11:24 | Outpatient (CLI) | payer MEDICARE, SELFPAY ==
[2020-02-03 11:38] LABS: Basophils Absolute Auto 0.07 K/mm3 (0.00-0.10); Basophils Percent Auto 0.9 % (0.0-1.0); Eosinophils Absolute Auto 0.18 K/mm3 (0.02-0.50); Eosinophils Percent Auto 2.2 % (1.0-6.0); Hematocrit 39.1 % (35.0-42.0); Hemoglobin 12.7 g/dL (11.7-13.8); Immature Granulocyte Absolute 0.03 K/mm3 (0.00-0.00); Immature Granulocyte Percent A 0.4 % (0.0-0.0); Lymphocytes Absolute Auto 2.28 K/mm3 (1.10-4.50); Lymphocytes Percent Auto 27.9 % (18.0-42.0); Mean Corpuscular HGB Conc 32.5 g/dL (32.0-36.0); Mean Corpuscular Hemoglobin 27.9 pg (27.0-31.0); Mean Corpuscular Volume 85.9 fL (78.0-102.0); Mean Platelet Volume 9.8 fl (9.2-11.8); Monocytes Absolute Auto 0.43 K/mm3 (0.10-0.90); Monocytes Percent Auto 5.3 % (2.0-11.0); Neutrophils Absolute Auto 5.2 K/mm3 (1.7-7.2); Neutrophils Percent Auto 63.3 % (50.0-70.0); Platelet Count Result 283 K/mm3 (150-420); Red Blood Count 4.55 M/mm3 (4.20-5.40); Red Cell Distribution Width 14.1 % (11.6-14.4); White Blood Count 8.2 K/mm3 (4.8-10.8)
[2020-02-03 11:51] LABS: Prothrombin Time 19.9 Seconds (9.64-11.0)
[2020-02-03 12:25] LABS: Alanine Aminotransferase 27 U/L (14-59); Alkaline Phosphatase 48 U/L (46-116); Anion Gap 15.2 mmol/L (7-16); Aspartate Amino Transferase 19 U/L (15-37); Bilirubin,Total 0.5 mg/dL (0.00-1.00); Blood Urea Nitrogen 42 mg/dL (7-18); Calcium 9.3 mg/dL (8.5-10.1); Carbon Dioxide 26 mmol/L (21-32); Chloride 99 mmol/L (98-108); Estimated Glomerular Filt Rate 26; Glucose 281 mg/dL (70-99); Magnesium 1.9 mg/dL (1.8-2.4); Osmolality Calculated 298 mOsm/kg (285-295); Potassium 6.2 mmol/L (3.5-5.1); Sodium 134 mmol/L (136-145); Total Protein 7.3 g/dL (6.4-8.2)
== END 2020-02-03 11:25 | disposition home or self-care (01) ==
LOC: CHSLAB 11:25
PROVIDERS: PCP Internal Medicine; Visit Provider Internal Medicine Cardiovascular Disease
DX: I48.0 Paroxysmal atrial fibrillation (principal); E11.65 Type 2 diabetes mellitus with hyperglycemia
CPT/HCPCS: 36415; 80053; 83735; 85025; 85610

== ENCOUNTER 2020-02-03 14:02 | Emergency (ER) | payer MEDICARE, OTHER, SELFPAY ==
--- NOTE | 2020-02-03 14:13 | ED.RECABL ---
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 Patient states that she feels fine. she states that her lisinopril was stopped and she was started on amlodipine approximately 2 weeks ago. She has been taking [id number] potassium supplements for leg cramps. She has had no weakness, nausea, vomiting, dysuria, chest pain, shortness of breath or palpitations. MD complaint: abnormal lab Initial visit (ago): hour(s) (2) Returns today for: called because of abnormal lab/test Description of abnormal result: K = 6.2 Symptoms since prior visit: no new symptoms Context: planned re-check (routine) Associated symptoms: none Related Data Home Medications Medication Instructions Recorded Confirmed metoprolol succinate 50 mg PO DAILY 10/27/19 02/03/20 Novolin 70/30 U-100 Insulin 15 unit SUBCUT QAM 10/29/19 02/03/20 ascorbic acid (vitamin C) [Vitamin 500 mg PO DAILY 10/30/19 02/03/20 C] cholecalciferol (vitamin D3) 25 25 mcg PO DAILY 11/02/19 02/03/20 mcg (1,000 unit) tablet magnesium 250 mg tablet 250 mg PO DAILY 11/02/19 02/03/20 omega-3 fatty acids 1,000 mg 2,000 mg PO DAILY cap 12/30/19 02/03/20 capsule Allergies Allergy/AdvReac Type Severity Reaction Status Date / Time codeine Allergy Mild Hives Verified 11/30/19 13:18 Review of Systems Constitutional: Constitutional: Denies chills, Denies fever(s) and Denies weakness Eyes: Eyes: Denies change in vision and Denies photophobia ENT: Denies dysphagia, Denies nasal congestion and Denies sore throat Cardiovascular: Cardiovascular: Denies chest pain and Denies radiating jaw, neck or arm pain Respiratory: Respiratory: Denies cough, Denies dyspnea and Denies wheezing Gastrointestinal: Gastrointestinal: Denies abdominal pain, Denies diarrhea, Denies nausea and Denies vomiting Genitourinary: Genitourinary: Denies hematuria, Denies nocturia and Denies dysuria Musculoskeletal: Musculoskeletal: Denies arthralgias and Denies joint swelling Integumentary/Breasts: Skin/Breast: Denies pruritus, Denies erythema and Denies rash Neurologic: Denies vertigo, Denies dizziness, Denies syncope and Denies focal weakness Psychiatric: Psychiatric: Reports anxiety (since finding the abnormal label) and Denies depression Endocrine: Endocrine: Denies polydipsia and Denies polyuria Hematologic/Lymphatic: Hematologic/Lymphatic: Denies easy bleeding and Denies easy bruising Allergic/Immunologic: Allergic/Immunologic: Denies throat swelling and Denies tongue swelling PMFSH Past Medical History Medical History Abdominal pain, chronic, epigastric Acute upper respiratory infection CAD (coronary artery disease) Diagnosed in April 2015, OM stent Dr. Shay April 2015. Carotid stenosis Left ICA 75% stenosis Cataract Diabetes mellitus Diverticulosis of colon Diverticulosis of large intestine without perforation or abscess without bleeding HTN (hypertension) Hyperlipidemia Ischemic cardiomyopathy Echo May. 2015 showed dilated LV EF 40%. Paradoxical septal motion from conduction abnormality + anteroseptal akinesis. Diastolic dysfunction. Labile hypertension Low back pain Lumbosacral radiculopathy at L5 Medical non-compliance Normocytic anemia Sinus tachycardia Stage 3 chronic kidney disease Type II diabetes mellitus Uncontrolled type II diabetes mellitus Surgical History Surgical History Cataract extraction status Bilaterally H/O heart artery stent April 2014 H/O: hysterectomy Family History Family History (Update
[2020-02-03 14:22] VITALS: BP 157/78; PULSE 87; RESP 16; TEMP 37.2; O2SAT 98
--- NOTE | 2020-02-03 14:22 | ECG_ITS ---
Measurements Intervals [place] Rate: 81 P: 15 PA: 164 QRS: -65 QRSD: 145 T: 64 QT: 405 QTc: 471 Interpretive Statements SINUS RHYTHM LEFT AXIS DEVIATION LEFT BUNDLE BRANCH BLOCK ABNORMAL ECG Electronically Signed On 02-03-2020 15:55:00 CDT by Brian Carson D.O.
[2020-02-03 14:40] LABS: Anion Gap 15.5 mmol/L (7-16); Blood Urea Nitrogen 44 mg/dL (7-18); Calcium 9.3 mg/dL (8.5-10.1); Carbon Dioxide 26 mmol/L (21-32); Chloride 99 mmol/L (98-108); Estimated Glomerular Filt Rate 25; Glucose 235 mg/dL (70-99); Osmolality Calculated 299 mOsm/kg (285-295); Potassium 5.5 mmol/L (3.5-5.1); Sodium 135 mmol/L (136-145)
[2020-02-03 15:09] VITALS: BP 125/76; PULSE 73
[2020-02-03] MEDS: SODIUM POLYSTYRENE SULFONONATE 15 GM/60 ML BTL 30 GM PO (15:16)
[2020-02-03 15:20] VITALS: BP 133/70; PULSE 82; O2SAT 98
== END 2020-02-03 15:35 | disposition home or self-care (01) ==
PROVIDERS: Emergency Provider Emergency Medicine; PCP Internal Medicine
DX: E87.5 Hyperkalemia (principal); N18.3 Chronic kidney disease, stage 3 (moderate); I25.10 Atherosclerotic heart disease of native coronary artery without angina pectoris; E11.9 Type 2 diabetes mellitus without complications; I12.9 Hypertensive chronic kidney disease with stage 1 through stage 4 chronic kidney disease, or unspecified chronic kidney disease; E78.5 Hyperlipidemia, unspecified
CPT/HCPCS: 36415; 80048; 80053; 83735; 85025; 85610; 93005; 99283; A9270

== ENCOUNTER 2020-02-04 11:00 | Outpatient (CLI) | payer MEDICARE, SELFPAY ==
[2020-02-04 11:41] LABS: Anion Gap 15.9 mmol/L (7-16); Blood Urea Nitrogen 44 mg/dL (7-18); Calcium 8.8 mg/dL (8.5-10.1); Carbon Dioxide 28 mmol/L (21-32); Chloride 101 mmol/L (98-108); Estimated Glomerular Filt Rate 26; Glucose 213 mg/dL (70-99); Osmolality Calculated 307 mOsm/kg (285-295); Potassium 4.9 mmol/L (3.5-5.1); Sodium 140 mmol/L (136-145)
== END 2020-02-04 11:01 | disposition home or self-care (01) ==
LOC: CHSLAB 11:02
PROVIDERS: PCP Internal Medicine; Visit Provider Emergency Medicine
DX: E87.5 Hyperkalemia (principal)
CPT/HCPCS: 36415; 80048

== ENCOUNTER 2020-02-17 11:04 | Outpatient (CLI) | payer MEDICARE, SELFPAY ==
[2020-02-17 11:40] LABS: INR 1.5; Prothrombin Time 15.4 Seconds (9.64-11.0)
[2020-02-17 12:38] LABS: Alanine Aminotransferase 32 U/L (14-59); Albumin Level 3.5 g/dL (3.4-5.0); Alkaline Phosphatase 53 U/L (46-116); Anion Gap 12.4 mmol/L (7-16); Aspartate Amino Transferase 19 U/L (15-37); Bilirubin,Total 0.4 mg/dL (0.00-1.00); Blood Urea Nitrogen 36 mg/dL (7-18); Calcium 8.6 mg/dL (8.5-10.1); Carbon Dioxide 30 mmol/L (21-32); Chloride 102 mmol/L (98-108); Estimated Glomerular Filt Rate 38; Glucose 182 mg/dL (70-99); Osmolality Calculated 303 mOsm/kg (285-295); Potassium 4.4 mmol/L (3.5-5.1); Sodium 140 mmol/L (136-145); Total Protein 6.6 g/dL (6.4-8.2)
== END 2020-02-17 11:05 | disposition home or self-care (01) ==
PROVIDERS: PCP Internal Medicine; Visit Provider Internal Medicine Cardiovascular Disease
DX: I48.0 Paroxysmal atrial fibrillation (principal); E87.5 Hyperkalemia; N18.3 Chronic kidney disease, stage 3 (moderate)
CPT/HCPCS: 36415; 80053; 83735; 85610

== ENCOUNTER 2020-03-09 08:51 | Outpatient (CLI) | payer MEDICARE, SELFPAY ==
[2020-03-09 09:18] LABS: INR 2.9; Prothrombin Time 28.9 Seconds (9.64-11.0)
[2020-03-09 09:43] LABS: Alanine Aminotransferase 26 U/L (14-59); Albumin Level 3.6 g/dL (3.4-5.0); Alkaline Phosphatase 50 U/L (46-116); Anion Gap 11.3 mmol/L (7-16); Aspartate Amino Transferase 17 U/L (15-37); Bilirubin,Total 0.5 mg/dL (0.00-1.00); Blood Urea Nitrogen 25 mg/dL (7-18); Carbon Dioxide 31 mmol/L (21-32); Chloride 101 mmol/L (98-108); Estimated Glomerular Filt Rate 31; Glucose 258 mg/dL (70-99); Osmolality Calculated 301 mOsm/kg (285-295); Potassium 4.3 mmol/L (3.5-5.1); Sodium 139 mmol/L (136-145); Total Protein 6.9 g/dL (6.4-8.2)
== END 2020-03-09 08:52 | disposition home or self-care (01) ==
PROVIDERS: PCP Internal Medicine; Visit Provider Internal Medicine Cardiovascular Disease
DX: N18.3 Chronic kidney disease, stage 3 (moderate) (principal); E87.5 Hyperkalemia; I48.0 Paroxysmal atrial fibrillation
CPT/HCPCS: 36415; 80053; 85610

== ENCOUNTER 2020-03-12 20:06 | Emergency (ER) | payer MEDICARE, OTHER, SELFPAY ==
[2020-03-12 20:19] VITALS: BP 169/84; PULSE 93; RESP 16; TEMP 36.9; O2SAT 95
--- NOTE | 2020-03-12 20:32 | ED.SKABFB ---
HPI - Skin/Abscess/Foreign Bdy General Chief complaint: Eye Problems Stated complaint: L eye irritation Source: patient Mode of arrival: ambulatory Limitations: no limitations History of Present Illness HPI narrative: THIS PATIENT IS A 74 YEAR-OLD WHO DEVELOPED A ITCHY SWOLLEN AREA UNDER HER LEFT EYE AND LEFT UPPER CHEEK AREA this afternoon. She is concerned about lower eyelid and cheek area. She had a similar itchy patch on her right cheek, chest and arms which started on March 03 treated with loratadine and Benadryl with resolution within a few days. She is unaware of agents she could have come in contact which could have triggered this. She has not pain; no blurred vision. Related Data Home Medications Medication Instructions Recorded Confirmed metoprolol succinate 50 mg PO DAILY 10/27/19 03/12/20 Novolin 70/30 U-100 Insulin 15 unit SUBCUT QAM 10/29/19 03/12/20 ascorbic acid (vitamin C) [Vitamin 500 mg PO DAILY 10/30/19 03/12/20 C] cholecalciferol (vitamin D3) 25 25 mcg PO DAILY 11/02/19 03/12/20 mcg (1,000 unit) tablet magnesium 250 mg tablet 250 mg PO DAILY 11/02/19 03/12/20 omega-3 fatty acids 1,000 mg 2,000 mg PO DAILY cap 12/30/19 03/12/20 capsule loratadine [Claritin] 10 mg PO DAILY 03/12/20 03/12/20 Allergies Allergy/AdvReac Type Severity Reaction Status Date / Time codeine Allergy Mild Hives Verified 11/30/19 13:18 Review of Systems Constitutional: Constitutional: Denies chills and Denies fever(s) ENT: Denies lip swelling Respiratory: Respiratory: Denies dyspnea [facility] Past Medical History Medical History Abdominal pain, chronic, epigastric Acute upper respiratory infection CAD (coronary artery disease) Diagnosed in April 2015, OM stent Dr. Shay April 2015. Carotid stenosis Left ICA 75% stenosis Cataract Diabetes mellitus Diverticulosis of colon Diverticulosis of large intestine without perforation or abscess without bleeding HTN (hypertension) Hyperlipidemia Ischemic cardiomyopathy Echo 2015 showed dilated LV EF 40%. Paradoxical septal motion from conduction abnormality + anteroseptal akinesis. Diastolic dysfunction. Labile hypertension Low back pain Lumbosacral radiculopathy at L5 Medical non-compliance Normocytic anemia Sinus tachycardia Stage 3 chronic kidney disease Type II diabetes mellitus Uncontrolled type II diabetes mellitus Surgical History Surgical History Cataract extraction status Bilaterally H/O heart artery stent April 2014 H/O: hysterectomy Family History Family History Mother Hypertension Sibling Thyroid cancer Hypertension Sibling Hypertension Sibling Hypertension Sibling Alzheimers disease Social History Social History Social History: BOBBI is her son Louis. The patient had 4 children and 1 of her sons at the age of 21. She raised 1 of her granddaughters and is now raising a great grandson that is 12 years old. She also has a disabled son in his 50s who is living with her. She is and retired from [employer]. Lifelong nonsmoker. She is also taking her elderly mother who is in her 90s. Her mother does not live with her. Smoking status: Former smoker Second hand tobacco smoke exposure: Yes Alcohol intake: never Substance use: never Gender identity (if verbalized by the patient): Female Spiritual care concerns: No Agree to blood products: Yes Exam Const: General: cooperative, healthy appearing and no acute distress Nutritional Appearance: average body habitus Orientation/consciousness: patient oriented x3 HENMT: Face and sinus: other (swelling of left lower eyelid and upper cheek. No redness or rash. ) Mouth: Yes Normal oral and palatal mucosa present Eyes: General: appearance
== END 2020-03-12 20:40 | disposition home or self-care (01) ==
PROVIDERS: Emergency Provider Family Medicine; PCP Internal Medicine
DX: L29.9 Pruritus, unspecified (principal); I25.10 Atherosclerotic heart disease of native coronary artery without angina pectoris; E78.5 Hyperlipidemia, unspecified; I12.9 Hypertensive chronic kidney disease with stage 1 through stage 4 chronic kidney disease, or unspecified chronic kidney disease; N18.3 Chronic kidney disease, stage 3 (moderate); E11.9 Type 2 diabetes mellitus without complications
CPT/HCPCS: 99281; 99282

== ENCOUNTER 2020-04-30 18:52 | Emergency (ER) | payer MEDICARE, OTHER, SELFPAY ==
--- NOTE | ~2020-04-30 | XR_ITS ---
XR forearm LT 2V 04/30/2020 19:19 INDICATION: Left arm pain PROCEDURE: 2 views left forearm COMPARISON: No prior studies for comparison. FINDINGS: Fracture, dislocation or subluxation is not identified. There is dorsal soft tissue swellin g. No foreign bodies are identified. IMPRESSION: 1: NO ACUTE BONE OR JOINT ABNORMALITY IDENTIFIED. Reviewed, dictated and finalized at location A.
[2020-04-30 19:08] VITALS: BP 151/75; PULSE 78; RESP 18; TEMP 36.6; O2SAT 97
--- NOTE | 2020-04-30 19:35 | ED.UPPEXIN ---
HPI - Extremity Injury (Upper) General Chief Complaint: Extremity Injury, Upper Stated Complaint: 74 YO female w/ lt arm pain after she hit her forearm on refrigerator while moving it. Patient is on coumadin and is concerned about swelling. Related Data Home Medications Medication Instructions Recorded Confirmed metoprolol succinate 50 mg PO DAILY 10/27/19 03/12/20 Novolin 70/30 U-100 Insulin 15 unit SUBCUT QAM 10/29/19 03/12/20 ascorbic acid (vitamin C) [Vitamin 500 mg PO DAILY 10/30/19 03/12/20 C] cholecalciferol (vitamin D3) 25 25 mcg PO DAILY 11/02/19 03/12/20 mcg (1,000 unit) tablet magnesium 250 mg tablet 250 mg PO DAILY 11/02/19 03/12/20 omega-3 fatty acids 1,000 mg 2,000 mg PO DAILY cap 12/30/19 03/12/20 capsule loratadine [Claritin] 10 mg PO DAILY 03/12/20 03/12/20 spironolactone 12.5 mg PO DAILY 04/30/20 04/30/20 warfarin 10 mg PO DAILY 04/30/20 04/30/20 Allergies Allergy/AdvReac Type Severity Reaction Status Date / Time codeine Allergy Mild Hives Verified 11/30/19 13:18 Review of Systems Review of Systems: All systems reviewed & are unremarkable except as noted in HPI and below Constitutional: Constitutional: Reports no additional constitutional complaints Cardiovascular: Cardiovascular: Reports no additional cardiovascular complaints Respiratory: Respiratory: Reports no additional respiratory complaints Gastrointestinal: Gastrointestinal: Reports no additional gastrointestinal complaints Musculoskeletal: Musculoskeletal: Reports as per HPI Neurologic: Reports system reviewed and no additional complaints, except as documented Psychiatric: Psychiatric: Reports no additional psychiatric complaints Endocrine: Endocrine: Reports no additional endocrine complaints Hematologic/Lymphatic: Hematologic/Lymphatic: Reports no additional hematologic/lymphatic complaints [facility] Past Medical History Medical History Abdominal pain, chronic, epigastric Acute upper respiratory infection CAD (coronary artery disease) Diagnosed in April 2015, OM stent Dr. Shay April 2015. Carotid stenosis Left ICA 75% stenosis Cataract Diabetes mellitus Diverticulosis of colon Diverticulosis of large intestine without perforation or abscess without bleeding HTN (hypertension) Hyperlipidemia Ischemic cardiomyopathy Echo 2015 showed dilated LV EF 40%. Paradoxical septal motion from conduction abnormality + anteroseptal akinesis. Diastolic dysfunction. Labile hypertension Low back pain Lumbosacral radiculopathy at L5 Medical non-compliance Normocytic anemia Sinus tachycardia Stage 3 chronic kidney disease Type II diabetes mellitus Uncontrolled type II diabetes mellitus Surgical History Surgical History Cataract extraction status Bilaterally H/O heart artery stent April 2014 H/O: hysterectomy Family History Family History Mother Hypertension Sibling Thyroid cancer Hypertension Sibling Hypertension Sibling Hypertension Sibling Alzheimers disease Social History Social History Social History: BOBBI is her son Louis. The patient had 4 children and 1 of her sons at the age of 21. She raised 1 of her granddaughters and is now raising a great grandson that is 12 years old. She also has a disabled son in his 50s who is living with her. She is and retired from [employer]. Lifelong nonsmoker. She is also taking her elderly mother who is in her 90s. Her mother does not live with her. Smoking status: Former smoker Second hand tobacco smoke exposure: Yes Alcohol intake: never Substance use: never Gender identity (if verbalized by the patient): Female Spiritual care concerns: No Agree to blood products: Yes Exam Const: General: health
[2020-04-30 19:48] LABS: Hematocrit 37.4 % (35.0-42.0); Hemoglobin 11.9 g/dL (11.7-13.8); Mean Corpuscular HGB Conc 31.8 g/dL (32.0-36.0); Mean Corpuscular Hemoglobin 27.7 pg (27.0-31.0); Mean Corpuscular Volume 87.2 fL (78.0-102.0); Mean Platelet Volume 10.8 fl (9.2-11.8); Platelet Count Result 232 K/mm3 (150-420); Red Blood Count 4.29 M/mm3 (4.20-5.40); Red Cell Distribution Width 13.4 % (11.6-14.4); White Blood Count 7.9 K/mm3 (4.8-10.8)
[2020-04-30 20:02] LABS: INR 2.4; Prothrombin Time 23.8 Seconds (9.64-11.0)
== END 2020-04-30 20:16 | disposition home or self-care (01) ==
PROVIDERS: Emergency Provider Family Medicine; PCP Internal Medicine
DX: Z79.01 Long term (current) use of anticoagulants (principal); S50.12XA Contusion of left forearm, initial encounter; W22.8XXA Striking against or struck by other objects, initial encounter
CPT/HCPCS: 36415; 73090; 85027; 85610; 99283

== ENCOUNTER 2020-06-29 13:07 | Outpatient (RCR) | payer MEDICARE, SELFPAY ==
[2020-03-31 11:53] LABS: INR 2.3; Prothrombin Time 22.9 Seconds (9.64-11.0)
[2020-03-31 12:48] LABS: Alanine Aminotransferase 23 U/L (14-59); Albumin Level 3.6 g/dL (3.4-5.0); Alkaline Phosphatase 62 U/L (46-116); Anion Gap 12.5 mmol/L (7-16); Aspartate Amino Transferase 15 U/L (15-37); Bilirubin,Total 0.3 mg/dL (0.00-1.00); Blood Urea Nitrogen 38 mg/dL (7-18); Calcium 8.8 mg/dL (8.5-10.1); Carbon Dioxide 31 mmol/L (21-32); Chloride 100 mmol/L (98-108); Estimated Glomerular Filt Rate 31; Glucose 330 mg/dL (70-99); Osmolality Calculated 310 mOsm/kg (285-295); Potassium 4.5 mmol/L (3.5-5.1); Sodium 139 mmol/L (136-145); Total Protein 6.7 g/dL (6.4-8.2)
[2020-04-27 13:05] LABS: Prothrombin Time 20.1 Seconds (9.64-11.0)
[2020-05-17 11:03] LABS: INR 2.4; Prothrombin Time 23.7 Seconds (9.64-11.0)
[2020-06-29 13:29] LABS: INR 3.9; Prothrombin Time 38.9 Seconds (9.64-11.0)
== END 2020-06-29 23:59 | disposition home or self-care (01) ==
LOC: CHSLAB 13:07
PROVIDERS: PCP Internal Medicine; Visit Provider Internal Medicine Cardiovascular Disease
DX: I48.0 Paroxysmal atrial fibrillation (principal); E87.5 Hyperkalemia
CPT/HCPCS: 36415; 80053; 85610

== ENCOUNTER 2020-08-03 12:04 | Outpatient (RCR) | payer MEDICARE, SELFPAY ==
[2020-07-15 14:07] LABS: Prothrombin Time 29.5 Seconds (9.64-11.0)
[2020-08-03 12:33] LABS: INR 1.5; Prothrombin Time 15.5 Seconds (9.64-11.0)
== END 2020-10-13 23:59 | disposition home or self-care (01) ==
LOC: CHSLAB 12:04
PROVIDERS: PCP Internal Medicine; Visit Provider Internal Medicine Cardiovascular Disease
DX: I48.0 Paroxysmal atrial fibrillation (principal)
CPT/HCPCS: 36415; 85610

== ENCOUNTER 2020-11-06 15:59 | Emergency (ER) | payer MEDICARE, SELFPAY ==
[2020-11-06 16:05] VITALS: BP 158/77; PULSE 72; RESP 18; TEMP 36.4; O2SAT 98
--- NOTE | 2020-11-06 16:12 | ED.SKABFB ---
HPI - Skin/Abscess/Foreign Bdy General Chief complaint: Skin/Abscess/Foreign Body Stated complaint: scalp issue Time Seen by Provider: 11/06/20 16:21 Source: patient Mode of arrival: ambulatory Limitations: no limitations History of Present Illness HPI narrative: 74-year-old woman comes in today complaining of a painful rash on the left side of her head for the last 2 days. Patient states she initially felt pain but did notice the rash. She states she has a mild headache but she denies any fever, nausea, vomiting, visual changes, hearing changes, difficulty walking, weakness or neck pain/stiffness. She denies prior previous symptoms and she denies taking prednisone or any other immunosuppressants. MD complaint: rash Onset (ago): day(s) (2) Location: head Severity: moderate Quality: burning Pain Consistency: constant Relieving factors: none Exacerbating factors: palpation Context: none Associated symptoms: denies other symptoms Treatments prior to arrival: other (Tylenol) Related Data Home Medications Medication Instructions Recorded Confirmed metoprolol succinate 50 mg PO DAILY 10/27/19 11/06/20 Novolin 70/30 U-100 Insulin 15 unit SUBCUT QAM 10/29/19 11/06/20 ascorbic acid (vitamin C) [Vitamin 500 mg PO DAILY 10/30/19 11/06/20 C] cholecalciferol (vitamin D3) 25 25 mcg PO DAILY 11/02/19 11/06/20 mcg (1,000 unit) tablet omega-3 fatty acids 1,000 mg 2,000 mg PO DAILY cap 12/30/19 11/06/20 capsule loratadine [Claritin] 10 mg PO DAILY 03/12/20 11/06/20 warfarin 10 mg PO DAILY 04/30/20 11/06/20 Allergies Allergy/AdvReac Type Severity Reaction Status Date / Time codeine Allergy Mild Hives Verified 07/04/20 14:01 Review of Systems Constitutional: Constitutional: Denies chills, Denies fever(s) and Denies weakness Eyes: Eyes: Denies change in vision and Denies photophobia ENT: Denies dysphagia, Denies nasal congestion and Denies sore throat Cardiovascular: Cardiovascular: Denies chest pain and Denies radiating jaw, neck or arm pain Respiratory: Respiratory: Denies cough and Denies dyspnea Gastrointestinal: Gastrointestinal: Denies abdominal pain, Denies diarrhea, Denies nausea and Denies vomiting Musculoskeletal: Musculoskeletal: Denies arthralgias and Denies joint swelling Integumentary/Breasts: Skin/Breast: Denies pruritus, Denies erythema and Reports rash Neurologic: Denies vertigo, Denies dizziness and Denies syncope Hematologic/Lymphatic: Hematologic/Lymphatic: Reports easy bleeding and Reports easy bruising Comments: on coumadin [facility] Past Medical History Medical History (Updated 11/06/20 @ 16:30 by Kwadwo Escobar MD) Abdominal pain, chronic, epigastric Acute upper respiratory infection CAD (coronary artery disease) Diagnosed in April 2015, OM stent Dr. Shay April 2015. Carotid stenosis Left ICA 75% stenosis Cataract Diabetes mellitus Diverticulosis of colon Diverticulosis of large intestine without perforation or abscess without bleeding HTN (hypertension) Hyperlipidemia Ischemic cardiomyopathy Echo 2015 showed dilated LV EF 40%. Paradoxical septal motion from conduction abnormality + anteroseptal akinesis. Diastolic dysfunction. Labile hypertension Low back pain Lumbosacral radiculopathy at L5 Medical non-compliance Normocytic anemia Sinus tachycardia Stage 3 chronic kidney disease Type II diabetes mellitus Uncontrolled type II diabetes mellitus Surgical History Surgical History Cataract extraction status Bilaterally H/O heart artery stent April 2014 H/O: hysterectomy Family History Family History Mother Hypertension Sibling Thyroid cancer Hypertension Sibling Hypertension Sibling Hypertension Sibling Alzheimers disease Social History Social History Social History: POA is he
[2020-11-06 16:32] VITALS: BP 145/78; PULSE 72; RESP 20; TEMP 36.4; O2SAT 98
== END 2020-11-06 16:37 | disposition home or self-care (01) ==
PROVIDERS: Emergency Provider Emergency Medicine; PCP Internal Medicine
DX: B02.9 Zoster without complications (principal)
CPT/HCPCS: 99283

== ENCOUNTER 2021-05-15 07:44 | Outpatient (CLI) | payer MEDICARE, SELFPAY ==
[2021-05-15 08:19] LABS: Hemoglobin A1C 11.2 % (<5.7)
[2021-05-15 08:22] LABS: Creatinine Urine 93.24 mg/dL (40-278); MALB Creatinine Ratio 103.7 mg/g (0-30); Microalbumin Urine Random 96.7 mg/L
[2021-05-15 09:50] LABS: Alanine Aminotransferase 26 U/L (14-59); Albumin Level 3.5 g/dL (3.4-5.0); Alkaline Phosphatase 64 U/L (46-116); Anion Gap 11 mmol/L (8-16); Aspartate Amino Transferase 12 U/L (15-37); Bilirubin,Total 0.5 mg/dL (0.00-1.00); Blood Urea Nitrogen 43 mg/dL (7-18); Calcium 8.7 mg/dL (8.5-10.1); Carbon Dioxide 28 mmol/L (21-32); Chloride 103 mmol/L (98-108); Estimated Glomerular Filt Rate 34; Glucose 295 mg/dL (70-99); Osmolality Calculated 315 mOsm/kg (285-295); Potassium 4.7 mmol/L (3.5-5.1); Sodium 142 mmol/L (136-145); Total Protein 6.7 g/dL (6.4-8.2)
== END 2021-05-15 07:45 | disposition home or self-care (01) ==
LOC: CHSLAB 07:47
PROVIDERS: PCP Internal Medicine; Visit Provider Internal Medicine
DX: E11.9 Type 2 diabetes mellitus without complications (principal)
CPT/HCPCS: 36415; 80053; 82043; 83036

== ENCOUNTER 2021-06-08 14:24 | Emergency (ER) | payer MEDICARE, SELFPAY ==
--- NOTE | ~2021-06-08 | XR_ITS ---
EXAMINATION: XR chest 1V portable INDICATION: Left neck and arm pain TECHNIQUE: Portable AP chest at 1409 hours COMPARISON: 10/28/2019 FINDINGS: Cardiomegaly is noted. The lungs are free of acute opacities. There is no pleural effusion or pneumothorax. IMPRESSION: 1. Stable cardiomegaly. Reviewed, dictated and finalized at location B. IMPRESSION: 1. Stable cardiomegaly.
[2021-06-08 14:31] VITALS: BP 180/73; PULSE 82; RESP 18; TEMP 36.6; O2SAT 98
--- NOTE | 2021-06-08 14:36 | ECG_ITS ---
Measurements Intervals [place] Rate: 78 P: 38 GA: 155 QRS: -41 QRSD: 165 T: 61 QT: 437 QTc: 499 Interpretive Statements SINUS RHYTHM LEFT AXIS DEVIATION LEFT BUNDLE BRANCH BLOCK BASELINE ARTIFACT- I, II, III, AVR, AVF, V1, V3-V6 ABNORMAL ECG Electronically Signed On 06-08-2021 15:50:42 CDT by Brian Carson D.O.
[2021-06-08 14:41] VITALS: BP 188/73; PULSE 77; RESP 18; O2SAT 98
[2021-06-08 14:42] VITALS: BP 127/55; PULSE 72; PULSE 74; RESP 13; O2SAT 98
[2021-06-08 14:45] VITALS: PULSE 80; RESP 18; O2SAT 98
[2021-06-08 14:50] LABS: Basophils Absolute Auto 0.1 K/mm3 (0.0-0.1); Basophils Percent Auto 0.7 % (0.2-1.2); Eosinophils Absolute Auto 0.3 K/mm3 (0-0.3); Eosinophils Percent Auto 3.2 % (0-4.4); Hematocrit 41.1 % (37.0-47.0); Immature Granulocyte Absolute 0.03 K/mm3 (0.00-0.031); Immature Granulocyte Percent A 0.3 % (0-0.5); Lymphocytes Absolute Auto 2.96 K/mm3 (0.9-3.2); Lymphocytes Percent Auto 31.4 % (18.3-44.2); Mean Corpuscular HGB Conc 31.6 g/dl (32-36); Mean Corpuscular Hemoglobin 27.7 pg (26-34); Mean Corpuscular Volume 87.4 fl (80-100); Mean Platelet Volume 10.9 fl (7.4-10.4); Monocytes Absolute Auto 0.5 K/mm3 (0.1-0.6); Monocytes Percent Auto 5.1 % (2.6-8.5); Neutrophils Absolute Auto 5.6 K/mm3 (1.3-6.7); Neutrophils Percent Auto 59.3 % (45.5-73.1); Platelet Count Result 251 k/mm3 (150-375); Red Cell Distribution Width 13.8 % (11.5-14.5); White Blood Count 9.4 K/mm3 (4.5-10.0)
[2021-06-08 15:00] LABS: Anion Gap 10 mmol/L (8-16); Blood Urea Nitrogen 34 mg/dL (7-17); Calcium 9.6 mg/dL (8.4-10.2); Carbon Dioxide 28 mmol/L (22-30); Chloride 99 mmol/L (98-107); Estimated CRCL calculation 31 ml/min; Estimated Glomerular Filt Rate 40; Glucose 317 mg/dL (65-110); INR 1.4; Partial Thromboplastin Time 25.7 SECONDS (22.3-36.8); Prothrombin Time 17.3 Seconds (11.1-14.7); Sodium 137 mmol/L (137-145)
[2021-06-08 15:11] LABS: Troponin I < 0.012 ng/mL (0.000-0.034)
[2021-06-08] MEDS: diazePAM INJ (*CRX) 10 MG/2 ML SYRINGE 5 MG IV PUSH (15:56)
[2021-06-08 16:06] VITALS: BP 137/61; PULSE 74; RESP 21; O2SAT 100
--- NOTE | 2021-06-08 16:16 | ED.GENADULT ---
HPI - General Adult General Chief complaint: Unspecified Stated complaint: L Neck Pain,L Shoulder pain Time Seen by Provider: 06/08/21 14:45 History of Present Illness HPI narrative: Patient is a 75-year-old female who presents ER with left-sided neck pain. She awoke from sleep today and had pain in her left neck. Radiates to her left shoulder. Worse when she turns her head towards left side. Also has waves of spasm. No numbness or tingling. No chest pain or chest pressure or shortness of breath. Denies fevers or chills or sweats. Patient is an insulin-dependent diabetic. She also takes Coumadin for PE in the past. She reports that is managed by her project administrator Dr. Carson. Related Data Home Medications Medication Instructions Recorded Confirmed metoprolol succinate 50 mg PO DAILY 10/27/19 11/06/20 Novolin 70/30 U-100 Insulin 15 unit SUBCUT QAM 10/29/19 11/06/20 ascorbic acid (vitamin C) [Vitamin 500 mg PO DAILY 10/30/19 11/06/20 C] cholecalciferol (vitamin D3) 25 25 mcg PO DAILY 11/02/19 11/06/20 mcg (1,000 unit) tablet omega-3 fatty acids 1,000 mg 2,000 mg PO DAILY cap 12/30/19 11/06/20 capsule loratadine [Claritin] 10 mg PO DAILY 03/12/20 11/06/20 Allergies Allergy/AdvReac Type Severity Reaction Status Date / Time codeine Allergy Mild Hives Verified 06/08/21 14:43 Review of Systems Review of Systems: All systems reviewed & are unremarkable except as noted in HPI and below Constitutional: Constitutional: Denies chills and Denies fever(s) Cardiovascular: Cardiovascular: Denies chest pain and Denies palpitations Gastrointestinal: Gastrointestinal: Denies abdominal pain, Denies nausea and Denies vomiting Musculoskeletal: Musculoskeletal: Reports muscle cramps and Reports neck pain Neurologic: Denies focal weakness and Denies tingling PMFSH Past Medical History Medical History (Updated 06/08/21 @ 16:30 by Lam Kuhn MD) Abdominal pain, chronic, epigastric Acute upper respiratory infection CAD (coronary artery disease) Diagnosed in April 2015, OM stent Dr. Shay April 2015. Carotid stenosis Left ICA 75% stenosis Cataract Diabetes mellitus Diverticulosis of colon Diverticulosis of large intestine without perforation or abscess without bleeding HTN (hypertension) Hyperlipidemia Ischemic cardiomyopathy Echo 2015 showed dilated LV EF 40%. Paradoxical septal motion from conduction abnormality + anteroseptal akinesis. Diastolic dysfunction. Labile hypertension Low back pain Lumbosacral radiculopathy at L5 Medical non-compliance Normocytic anemia Sinus tachycardia Stage 3 chronic kidney disease Type II diabetes mellitus Uncontrolled type II diabetes mellitus Surgical History Surgical History Cataract extraction status Bilaterally H/O heart artery stent April 2014 H/O: hysterectomy Family History Family History Mother Hypertension Sibling Thyroid cancer Hypertension Sibling Hypertension Sibling Hypertension Sibling Alzheimers disease Social History Social History Social History: BOBBI is her son Louis. The patient had 4 children and 1 of her sons at the age of 21. She raised 1 of her granddaughters and is now raising a great grandson that is 12 years old. She also has a disabled son in his 50s who is living with her. She is and retired from [employer]. Lifelong nonsmoker. She is also taking her elderly mother who is in her 90s. Her mother does not live with her. Smoking status: Former smoker Second hand tobacco smoke exposure: Yes Alcohol intake: never Substance use: never Gender identity (if verbalized by the patient): Female Spiritual care concerns: No Agree to blood products: Yes Exam Narrative: GENERAL: Well-appearing, well-nourished, and in no
--- NOTE | 2021-06-08 16:41 | PC.NURSE ---
Pt reports pain has much improved. Pt calling for ride home.
[2021-06-08 17:03] VITALS: BP 148/62; PULSE 78; RESP 18; O2SAT 98
== END 2021-06-08 17:15 | disposition home or self-care (01) ==
PROVIDERS: Emergency Provider Emergency Medicine; PCP Internal Medicine
DX: M62.838 Other muscle spasm (principal); R79.1 Abnormal coagulation profile; I25.10 Atherosclerotic heart disease of native coronary artery without angina pectoris; I65.22 Occlusion and stenosis of left carotid artery; I25.5 Ischemic cardiomyopathy; E78.5 Hyperlipidemia, unspecified; E11.22 Type 2 diabetes mellitus with diabetic chronic kidney disease; I12.9 Hypertensive chronic kidney disease with stage 1 through stage 4 chronic kidney disease, or unspecified chronic kidney disease; N18.30 Chronic kidney disease, stage 3 unspecified; G89.29 Other chronic pain; R10.13 Epigastric pain; Z79.01 Long term (current) use of anticoagulants; Z86.711 Personal history of pulmonary embolism; D64.9 Anemia, unspecified; Z98.42 Cataract extraction status, left eye; Z98.41 Cataract extraction status, right eye; Z95.5 Presence of coronary angioplasty implant and graft; Z87.891 Personal history of nicotine dependence; I51.7 Cardiomegaly; Z79.4 Long term (current) use of insulin; I44.7 Left bundle-branch block, unspecified
CPT/HCPCS: 36415; 71045; 80048; 84484; 85025; 85610; 85730; 93005; 99284; J3360

== ENCOUNTER 2021-06-28 12:15 | Outpatient (CLI) | payer MEDICARE, SELFPAY ==
[2021-06-28 13:23] LABS: SARS-CoV-2 RNA PCR Negative (Negative)
== END 2021-06-28 12:16 | disposition home or self-care (01) ==
LOC: CHSLAB 12:17
PROVIDERS: PCP Internal Medicine; Visit Provider Internal Medicine
DX: Z20.822 Contact with and (suspected) exposure to COVID-19 (principal)
CPT/HCPCS: C9803; U0003; U0005

== ENCOUNTER 2021-08-17 10:13 | Outpatient (CLI) | payer MEDICARE, SELFPAY ==
[2021-08-17 10:36] LABS: Basophils Absolute Auto 0.07 K/mm3 (0.00-0.10); Basophils Percent Auto 0.7 % (0.0-1.0); Eosinophils Absolute Auto 0.24 K/mm3 (0.02-0.50); Eosinophils Percent Auto 2.4 % (1.0-6.0); Hematocrit 40.1 % (35.0-42.0); Hemoglobin 12.7 g/dL (11.7-13.8); Immature Granulocyte Absolute 0.06 K/mm3 (0.00-0.00); Immature Granulocyte Percent A 0.6 % (0.0-0.0); Lymphocytes Absolute Auto 1.65 K/mm3 (1.10-4.50); Lymphocytes Percent Auto 16.4 % (18.0-42.0); Mean Corpuscular HGB Conc 31.7 g/dL (32.0-36.0); Mean Corpuscular Hemoglobin 27.9 pg (27.0-31.0); Mean Corpuscular Volume 87.9 fL (78.0-102.0); Mean Platelet Volume 10.6 fl (9.2-11.8); Monocytes Absolute Auto 0.68 K/mm3 (0.10-0.90); Monocytes Percent Auto 6.8 % (2.0-11.0); Neutrophils Absolute Auto 7.4 K/mm3 (1.7-7.2); Neutrophils Percent Auto 73.1 % (50.0-70.0); Platelet Count Result 233 K/mm3 (150-420); Red Blood Count 4.56 M/mm3 (4.20-5.40); Red Cell Distribution Width 13.2 % (11.6-14.4); White Blood Count 10.1 K/mm3 (4.8-10.8)
[2021-08-17 10:52] LABS: INR 1.2; Partial Thromboplastin Time 35.1 SEC (23.90-30.70)
[2021-08-17 11:13] LABS: Alanine Aminotransferase 19 U/L (14-59); Albumin Level 3.6 g/dL (3.4-5.0); Alkaline Phosphatase 58 U/L (46-116); Anion Gap 8 mmol/L (8-16); Aspartate Amino Transferase 11 U/L (15-37); Bilirubin,Total 0.7 mg/dL (0.00-1.00); Blood Urea Nitrogen 29 mg/dL (7-18); Calcium 9.3 mg/dL (8.5-10.1); Carbon Dioxide 30 mmol/L (21-32); Chloride 98 mmol/L (98-108); Estimated Glomerular Filt Rate 33; Glucose 192 mg/dL (70-99); Osmolality Calculated 292 mOsm/kg (285-295); Potassium 4.7 mmol/L (3.5-5.1); Sodium 136 mmol/L (136-145); Total Protein 6.8 g/dL (6.4-8.2)
== END 2021-08-17 10:14 | disposition home or self-care (01) ==
LOC: CHSLAB 10:15
PROVIDERS: PCP Internal Medicine; Visit Provider Internal Medicine
DX: S30.1XXA Contusion of abdominal wall, initial encounter (principal)
CPT/HCPCS: 36415; 80053; 85025; 85610; 85730

== ENCOUNTER 2021-08-22 20:56 | Emergency (ER) | payer MEDICARE, SELFPAY ==
--- NOTE | ~2021-08-22 | XR_ITS ---
XR chest 1V portable 08/22/2021 22:45 Indication: Shakiness and heart racing Procedure: AP portable chest Comparison: Comparison to multiple prior studies sequentially, with oldest reviewed study dated 10/28. Findings: Cardiomegaly. Right basilar airspace disease, compatible with pneumonia. No significant ple ural effusion, edema or pneumothorax. Impression: 1: Right basilar airspace disease, compatible with pneumonia. Reviewed, dictated and finalized at location A. WEEDER Impression: 1: Right basilar airspace disease, compatible with pneumonia.
--- NOTE | ~2021-08-22 | CT_ITS ---
EXAMINATION:CT diagnostic chest wo con DATE: 08/23/2021 00:42 INDICATION: Shortness of breath. Tachycardia. TECHNIQUE: Computed tomography (CT) of the chest was performed without intravenous contrast. Automate d exposure control and iterative reconstruction technique were employed. The dose-length product (DLP ) was 397.50 mGy-cm. COMPARISON: Chest CT 10/27/2019, thyroid ultrasound 01/12/2020 FINDINGS: There are patchy airspace and groundglass opacities in basilar right lower lobe, consistent with pneumonia. There is mild atelectasis in left lower lobe and lingula. Calcified right lung nodul es and calcified right hilar lymph nodes are consistent with old granulomatous disease. No pleural ef fusion. There is a stable multinodular goiter. Cardiomegaly is noted. There are coronary artery calci fications. No pericardial effusion. The main pulmonary artery is enlarged, consistent with pulmonary arterial hypertension. There are chronic low-attenuation mass in the adrenal glands measuring up to 1 .5 cm on the left, consistent with adenomas. There is severe thoracic spondylosis. IMPRESSION: 1. Right lower lobe pneumonia. 2. Cardiomegaly. 3. Multinodular goiter. Reviewed, dictated and finalized at location B. AUDITOR
--- NOTE | 2021-08-22 22:19 | ECG_ITS ---
Measurements Intervals [place] Rate: 82 P: 8 ND: 173 QRS: -64 QRSD: 153 T: 76 QT: 424 QTc: 496 Interpretive Statements SINUS RHYTHM LEFT AXIS DEVIATION LEFT BUNDLE BRANCH BLOCK BASELINE ARTIFACT- I, II, III, AVR, AVL, AVF, V1 ABNORMAL ECG Electronically Signed On 08-23-2021 6:47:38 BROWNELL OPERATOR by Brian Carson D.O.
[2021-08-22] MEDS: SODIUM CHLORIDE 0.9% IV 500 ML 999 ML IV CONT (22:37)
[2021-08-22] MEDS: ONDANSETRON INJ 4 MG/2 ML VIAL IV PUSH (22:37)
[2021-08-22 22:41] LABS: Basophils Absolute Auto 0.05 K/mm3 (0.00-0.10); Basophils Percent Auto 0.8 % (0.0-1.0); Eosinophils Absolute Auto 0.34 K/mm3 (0.02-0.50); Eosinophils Percent Auto 5.4 % (1.0-6.0); Hematocrit 38.3 % (35.0-42.0); Hemoglobin 11.6 g/dL (11.7-13.8); Immature Granulocyte Absolute 0.02 K/mm3 (0.00-0.00); Immature Granulocyte Percent A 0.3 % (0.0-0.0); Lymphocytes Absolute Auto 1.21 K/mm3 (1.10-4.50); Lymphocytes Percent Auto 19.2 % (18.0-42.0); Mean Corpuscular HGB Conc 30.3 g/dL (32.0-36.0); Mean Corpuscular Hemoglobin 27.5 pg (27.0-31.0); Mean Corpuscular Volume 90.8 fL (78.0-102.0); Mean Platelet Volume 11.5 fl (9.2-11.8); Monocytes Absolute Auto 0.83 K/mm3 (0.10-0.90); Monocytes Percent Auto 13.2 % (2.0-11.0); Neutrophils Absolute Auto 3.9 K/mm3 (1.7-7.2); Neutrophils Percent Auto 61.1 % (50.0-70.0); Platelet Count Result 219 K/mm3 (150-420); Red Blood Count 4.22 M/mm3 (4.20-5.40); Red Cell Distribution Width 13.8 % (11.6-14.4); White Blood Count 6.3 K/mm3 (4.8-10.8)
[2021-08-22 22:58] LABS: Lactic Acid Reflex 1.1 mmol/L (0.4-2.0)
[2021-08-22 23:01] LABS: Alanine Aminotransferase 48 U/L (14-59); Albumin Level 2.4 g/dL (3.4-5.0); Alkaline Phosphatase 63 U/L (46-116); Anion Gap 13 mmol/L (8-16); Aspartate Amino Transferase 56 U/L (15-37); Bilirubin,Total 0.4 mg/dL (0.00-1.00); Blood Urea Nitrogen 52 mg/dL (7-18); Calcium 8.8 mg/dL (8.5-10.1); Carbon Dioxide 23 mmol/L (21-32); Chloride 97 mmol/L (98-108); Estimated CRCL calculation 23 ml/min; Estimated Glomerular Filt Rate 29; Ethanol < 3 mg/dL (0-6); Glucose 324 mg/dL (70-99); Osmolality Calculated 303 mOsm/kg (285-295); Potassium 4.9 mmol/L (3.5-5.1); Sodium 133 mmol/L (136-145); Total Protein 7.2 g/dL (6.4-8.2); Troponin I 21.1 ng/L (0.00-60.4)
[2021-08-23 00:07] LABS: Amphetamine Screen Urine Negative (Negative); Barbiturate Screen Urine Negative (Negative); Benzodiazepines Screen Urine Negative (Negative); Cannabinoid Screen Urine Negative (Negative); Cocaine Screen Urine Negative (Negative); Methadone Screen Urine Negative (Negative); Opiate Screen Urine Negative (Negative); Phencyclidine Screen Urine Negative (Negative)
--- NOTE | 2021-08-23 00:27 | PC.NURSE ---
Pt to x-ray at this time. Via w/c.
[2021-08-23 00:41] VITALS: BP 137/84; PULSE 99; RESP 20; TEMP 37; O2SAT 94
--- NOTE | 2021-08-23 01:18 | PC.NURSE ---
[address] Chest. 0 change in condition. awaiting results.
--- NOTE | 2021-08-23 02:32 | PC.NURSE ---
IV ABT Infused. O s Or S of adverse effect noted. Pt. up to use the restroom and ambulatory with steady stable gait.
[2021-08-23 03:01] LABS: SARS-CoV-2 RNA PCR Negative (Negative)
--- NOTE | 2021-08-23 03:06 | ED.GENADULT ---
HPI - General Adult General Source: patient and RN notes reviewed Mode of arrival: ambulatory Limitations: no limitations History of Present Illness complaint: had a shaky feeling.. minimal SOB, no acute fever or SOB. Onset (ago): hour(s) (8) Location: chest Radiation: non-radiation Severity: mild Severity scale (1-10): 3 Quality: other (shaky feeling, no acute pain or SOB.) Relieving factors: none Exacerbating factors: none Associated symptoms: denies other symptoms Treatments prior to arrival: none Related Data Home Medications Medication Instructions Recorded Confirmed Novolin 70/30 U-100 Insulin 15 unit SUBCUT QAM 10/29/19 11/06/20 ascorbic acid (vitamin C) [Vitamin 500 mg PO DAILY 10/30/19 11/06/20 C] cholecalciferol (vitamin D3) 25 25 mcg PO DAILY 11/02/19 11/06/20 mcg (1,000 unit) tablet omega-3 fatty acids 1,000 mg 2,000 mg PO DAILY cap 12/30/19 11/06/20 capsule loratadine [Claritin] 10 mg PO DAILY 03/12/20 11/06/20 Allergies Allergy/AdvReac Type Severity Reaction Status Date / Time codeine Allergy Mild Hives Verified 06/08/21 14:43 Review of Systems Review of Systems: All systems reviewed & are unremarkable except as noted in HPI and below PMFSH Past Medical History Medical History Abdominal pain, chronic, epigastric Acute upper respiratory infection CAD (coronary artery disease) Diagnosed in April 2015, OM stent Dr. Shay April 2015. Carotid stenosis Left ICA 75% stenosis Cataract Diabetes mellitus Diverticulosis of colon Diverticulosis of large intestine without perforation or abscess without bleeding HTN (hypertension) Hyperlipidemia Ischemic cardiomyopathy Echo 2015 showed dilated LV EF 40%. Paradoxical septal motion from conduction abnormality + anteroseptal akinesis. Diastolic dysfunction. Labile hypertension Low back pain Lumbosacral radiculopathy at L5 Medical non-compliance Normocytic anemia Sinus tachycardia Stage 3 chronic kidney disease Type II diabetes mellitus Uncontrolled type II diabetes mellitus Surgical History Surgical History Cataract extraction status Bilaterally H/O heart artery stent April 2014 H/O: hysterectomy Family History Family History Mother Hypertension Sibling Thyroid cancer Hypertension Sibling Hypertension Sibling Hypertension Sibling Alzheimers disease Social History Social History Social History: BOBBI is her son Louis. The patient had 4 children and 1 of her sons at the age of 19. She raised 1 of her granddaughters and is now raising a great grandson that is 12 years old. She also has a disabled son in his 50s who is living with her. She is and retired from [employer]. Lifelong nonsmoker. She is also taking her elderly mother who is in her 90s. Her mother does not live with her. Smoking status: Former smoker Second hand tobacco smoke exposure: Yes Alcohol intake: never Substance use: never Gender identity (if verbalized by the patient): Female Spiritual care concerns: No Agree to blood products: Yes Exam Const: General: no acute distress and alert Orientation/consciousness: patient oriented x3 Limitations: no limitations HENMT: Head: normal to inspection Ears: external ears normal and TM's normal bilaterally General nose exam: Normal external nose present and Normal nares present Mouth: Yes lip normal and Yes moist mucous membranes Teeth and gingiva: dentition normal Eyes: Conjunctivae: conjunctivae normal Pupils: Equal, round and reactive pupils present Neck: Neck: normal visual inspection Chest: Chest palpation & inspection: normal inspection of the chest Resp: Effort & Inspection: normal respiratory effort Auscultation: crackles (mild
[2021-08-23 03:10] VITALS: BP 110/70; PULSE 99; RESP 20; TEMP 36.8; O2SAT 97
--- NOTE | 2021-08-23 03:11 | PC.NURSE ---
Pt refused to wait for scan to come back pt in hallway with nightgown on and car keys in hand demanding IV out. SANG called and advised of Pt dekrystald to leave before scan comes back. SANG out to D/c pt.
[2021-08-23 03:14] VITALS: BP 110/70; PULSE 99; RESP 20; TEMP 36.8; O2SAT 97
--- NOTE | 2021-08-23 03:33 | PC.NURSE ---
Pt discharged before packet printed. ERMD gave detailed instructions and advised her of need for Keflex script garbage pick up worker. I advised Pt the need for antibiotics R/T Pneumonia Dx by ERMMary Grace. Pt verbalized understanding. Pt. states she is going to setup appointment with her PMD and is very angry about not being advised by him to get scan to see if she had Pneumonia. Attempts made to educate Pt about process unsuccessful.
== END 2021-08-23 03:17 | disposition home or self-care (01) ==
PROVIDERS: Emergency Provider Emergency Medicine; PCP Internal Medicine
DX: J18.9 Pneumonia, unspecified organism (principal); Z20.822 Contact with and (suspected) exposure to COVID-19; I25.10 Atherosclerotic heart disease of native coronary artery without angina pectoris; E11.9 Type 2 diabetes mellitus without complications; E78.5 Hyperlipidemia, unspecified; I12.9 Hypertensive chronic kidney disease with stage 1 through stage 4 chronic kidney disease, or unspecified chronic kidney disease; N18.30 Chronic kidney disease, stage 3 unspecified; Z87.891 Personal history of nicotine dependence; Z79.4 Long term (current) use of insulin
CPT/HCPCS: 36415; 71045; 71250; 80053; 80307; 83605; 84484; 85025; 87040; 93005; 96361; 96365; 96375; 99283; 99284; C9803; J0696; J2405; J7040; U0003; U0005

== ENCOUNTER 2021-11-23 16:21 | Emergency (ER) | payer MEDICARE, SELFPAY ==
--- NOTE | ~2021-11-23 | CT_ITS ---
EXAMINATION: CT pelvis wo con DATE: 11/23/2021 18:04 INDICATION: Right hip pain after fall TECHNIQUE: Computed tomography (CT) of the pelvis was performed without intravenous contrast. The dos e-length product (DLP) was 272.08 mGy-cm. Automated exposure control and iterative reconstruction nasra hnique were employed. COMPARISON: None FINDINGS: Bone alignment is normal. No displaced fracture is identified. There is mild osteoarthritis of the hips. Osteitis pubis is noted. Colonic diverticulosis is present without evidence of divertic ulitis. There is calcified atherosclerosis. IMPRESSION: 1. No acute osseous abnormality. Reviewed, dictated and finalized at location F. RIAL COMBINER
--- NOTE | ~2021-11-23 | XR_ITS ---
EXAMINATION: XR chest 1V portable INDICATION: Fall, weakness TECHNIQUE: Portable AP chest at 1802 hours COMPARISON: 08/22/2021 FINDINGS: The lungs are free of acute opacities. There is no pleural effusion or pneumothorax. The ca rdiomediastinal silhouette is normal. IMPRESSION: 1. No acute cardiopulmonary abnormality. Reviewed, dictated and finalized at location F. TAL ARCHIVIST
[2021-11-23 16:25] VITALS: BP 140/80; PULSE 78; RESP 20; TEMP 36.6; O2SAT 94
--- NOTE | 2021-11-23 17:02 | ECG_ITS ---
Measurements Intervals [place] Rate: 74 P: 68 TN: 177 QRS: 54 QRSD: 106 T: 53 QT: 382 QTc: 425 Interpretive Statements SINUS RHYTHM DELAYED PRECORDIAL R/S TRANSITION BORDERLINE ST ABNORMALITY- INFERIOR LEADS BORDERLINE ECG Electronically Signed On 11-23-2021 18:29:04 UPHOLSTERY TECHNICIAN by Brian Carson D.O.
[2021-11-23 17:27] LABS: Basophils Absolute Auto 0.05 K/mm3 (0.00-0.10); Basophils Percent Auto 0.6 % (0.0-1.0); Eosinophils Absolute Auto 0.17 K/mm3 (0.02-0.50); Eosinophils Percent Auto 1.9 % (1.0-6.0); Hematocrit 25.4 % (35.0-42.0); Hemoglobin 8.4 g/dL (11.7-13.8); Immature Granulocyte Absolute 0.04 K/mm3 (0.00-0.00); Immature Granulocyte Percent A 0.5 % (0.0-0.0); Lymphocytes Absolute Auto 2.31 K/mm3 (1.10-4.50); Lymphocytes Percent Auto 26.4 % (18.0-42.0); Mean Corpuscular HGB Conc 33.1 g/dL (32.0-36.0); Mean Corpuscular Hemoglobin 27.8 pg (27.0-31.0); Mean Corpuscular Volume 84.1 fL (78.0-102.0); Mean Platelet Volume 10.5 fl (9.2-11.8); Monocytes Absolute Auto 0.61 K/mm3 (0.10-0.90); Neutrophils Absolute Auto 5.6 K/mm3 (1.7-7.2); Neutrophils Percent Auto 63.6 % (50.0-70.0); Platelet Count Result 212 K/mm3 (150-420); Red Blood Count 3.02 M/mm3 (4.20-5.40); Red Cell Distribution Width 14.5 % (11.6-14.4); White Blood Count 8.8 K/mm3 (4.8-10.8)
[2021-11-23] MEDS: SODIUM CHLORIDE 0.9% IV 500 ML 999 ML IV CONT (17:40)
[2021-11-23 17:43] LABS: Alanine Aminotransferase 21 U/L (14-59); Albumin Level 3.1 g/dL (3.4-5.0); Alkaline Phosphatase 51 U/L (46-116); Anion Gap 9 mmol/L (8-16); Aspartate Amino Transferase 13 U/L (15-37); Bilirubin,Total 0.5 mg/dL (0.00-1.00); Blood Urea Nitrogen 46 mg/dL (7-18); Calcium 8.9 mg/dL (8.5-10.1); Carbon Dioxide 27 mmol/L (21-32); Chloride 97 mmol/L (98-108); Estimated CRCL calculation 23 ml/min; Estimated Glomerular Filt Rate 27; Glucose 337 mg/dL (70-99); Lactic Acid Reflex 1.3 mmol/L (0.4-2.0); Osmolality Calculated 300 mOsm/kg (285-295); Potassium 4.8 mmol/L (3.5-5.1); Sodium 133 mmol/L (136-145); Total Protein 6.4 g/dL (6.4-8.2); Troponin I 13.7 ng/L (0.00-60.4)
[2021-11-23] MEDS: KETOROLAC (*BKC) 60 MG/2 ML VIAL IM (17:45)
[2021-11-23] MEDS: ENOXAPARIN 100 MG/ML SYRINGE 73 MG SUB-Q (17:55)
[2021-11-23] MEDS: INSULIN HUMAN REGULAR (*BKC) 100 UNITS/ML 10 UNITS IV PUSH (19:12)
--- NOTE | 2021-11-23 19:12 | ED.FALL ---
HPI - Fall General Chief Complaint: Fall Stated Complaint: pain in legs, arms Time Seen by Provider: 11/23/21 16:23 Source: patient, family and RN notes reviewed Mode of arrival: wheelchair Limitations: no limitations History of Present Illness complaint: other (horizontal split of lower limbs x 2 weeks. worse inner thigh pain x 2 days. also right buttock to right thigh pain.) Onset (ago): week(s) (2) Fall from: standing Place fall occurred: street Loss of consciousness: none Prolonged down time: no Symptoms prior to fall: none Location of injury: pelvis Location of injury - extremities: Bilateral: thigh Severity scale (1-10): 5 Associated symptoms (after fall): other (bilateral inner thigh painful. fall was 2 weeks ago) Related Data Home Medications Medication Instructions Recorded Confirmed Novolin 70/30 U-100 Insulin 15 unit SUBCUT QAM 10/29/19 11/23/21 ascorbic acid (vitamin C) [Vitamin 500 mg PO DAILY 10/30/19 11/23/21 C] cholecalciferol (vitamin D3) 25 25 mcg PO DAILY 11/02/19 11/23/21 mcg (1,000 unit) tablet omega-3 fatty acids 1,000 mg 2,000 mg PO DAILY cap 12/30/19 11/23/21 capsule loratadine [Claritin] 10 mg PO DAILY 03/12/20 11/23/21 Allergies Allergy/AdvReac Type Severity Reaction Status Date / Time codeine Allergy Mild Hives Verified 06/08/21 14:43 Review of Systems Review of Systems: All systems reviewed & are unremarkable except as noted in HPI and below PMFSH Past Medical History Medical History (Updated 11/24/21 @ 07:59 by Briseida Palmer MD) Abdominal pain, chronic, epigastric Acute upper respiratory infection CAD (coronary artery disease) Diagnosed in April 2015, OM stent Dr. Shay April 2015. Carotid stenosis Left ICA 75% stenosis Cataract Diabetes mellitus Diverticulosis of colon Diverticulosis of large intestine without perforation or abscess without bleeding HTN (hypertension) Hyperlipidemia Ischemic cardiomyopathy Echo 2015 showed dilated LV EF 40%. Paradoxical septal motion from conduction abnormality + anteroseptal akinesis. Diastolic dysfunction. Labile hypertension Low back pain Lumbosacral radiculopathy at L5 Medical non-compliance Normocytic anemia Sinus tachycardia Stage 3 chronic kidney disease Type II diabetes mellitus Uncontrolled type II diabetes mellitus Surgical History Surgical History Cataract extraction status Bilaterally H/O heart artery stent April 2014 H/O: hysterectomy Family History Family History Mother Hypertension Sibling Thyroid cancer Hypertension Sibling Hypertension Sibling Hypertension Sibling Alzheimers disease Social History Social History Social History: BOBBI is her son Louis. The patient had 4 children and 1 of her sons at the age of 21. She raised 1 of her granddaughters and is now raising a great grandson that is 12 years old. She also has a disabled son in his 50s who is living with her. She is and retired from [employer]. Lifelong nonsmoker. She is also taking her elderly mother who is in her 90s. Her mother does not live with her. Smoking status: Former smoker Second hand tobacco smoke exposure: Yes Alcohol intake: never Substance use: never Gender identity (if verbalized by the patient): Female Spiritual care concerns: No Agree to blood products: Yes Exam Const: General: no acute distress and alert Orientation/consciousness: patient oriented x3 Limitations: no limitations HENMT: Head: normal to inspection Ears: external ears normal, TM's normal bilaterally and EAC's normal General nose exam: Normal external nose present and Normal nares present Face and sinus: sinuses nontender Mouth: Yes lip normal and Yes moist mucous membranes Throat: posterior oropharynx normal Eyes:
--- NOTE | 2021-11-23 19:25 | PC.NURSE ---
per md aviles, okay not to collect a urine sample prior to discharge at this time.
[2021-11-23 19:45] LABS: Glucose Point of Care 275 mg/dl (65-105)
--- NOTE | 2021-11-23 20:13 | PC.NURSE ---
pt provided information concerning setting up an appointment for an ultrasound. information added to her discharge paperwork.
[2021-11-23 20:14] VITALS: BP 109/53; PULSE 70; RESP 17; TEMP 36.3; O2SAT 99
== END 2021-11-23 20:16 | disposition home or self-care (01) ==
PROVIDERS: Emergency Provider Emergency Medicine; PCP Internal Medicine
DX: E11.9 Type 2 diabetes mellitus without complications (principal); M54.31 Sciatica, right side; D64.9 Anemia, unspecified; I25.10 Atherosclerotic heart disease of native coronary artery without angina pectoris; I12.9 Hypertensive chronic kidney disease with stage 1 through stage 4 chronic kidney disease, or unspecified chronic kidney disease; E78.5 Hyperlipidemia, unspecified; N18.30 Chronic kidney disease, stage 3 unspecified; Z87.891 Personal history of nicotine dependence
CPT/HCPCS: 36415; 71045; 72192; 80053; 82948; 83605; 84484; 85025; 93005; 96361; 96372; 96374; 99284; J1650; J1815; J1885; J7040

== ENCOUNTER 2021-11-24 12:39 | Emergency (ER) | payer MEDICARE, SELFPAY ==
[2021-11-24] VITALS (15 sets, daily range): BP systolic 105–141; BP diastolic 47–91; PULSE 81–98; RESP 16–20; TEMP 36.2–36.8; O2SAT 93–100
--- NOTE | ~2021-11-24 | CT_ITS ---
EXAMINATION: CT abdomen pelvis wo con DATE: 11/24/2021 14:48 INDICATION: Anemia. TECHNIQUE: Computed tomography (CT) of the abdomen and pelvis was performed without intravenous contr ast. Automated exposure control and iterative reconstruction technique were employed. The dose-length product was 483.21 mGy-cm. COMPARISON: Pelvis CT 11/23/2021, chest CT 10/27/2019 FINDINGS: The visualized portions of the lung bases demonstrate mild atelectasis. No pleural effusion . The heart size is normal. There are coronary artery calcifications. No pericardial effusion. Calcif ications in the liver and spleen are consistent with old granulomatous disease. The gallbladder is ab sent. Calcifications in the pancreas are consistent with pancreatitis. There are chronic masses in th e adrenal glands measuring up to 13 mm on the left measuring low-attenuation, consistent with adenoma s. The kidneys are normal. There is no urolithiasis. There is diverticulosis of the colon without sultana dence of diverticulitis. There are no dilated loops of bowel. The appendix is not visualized. There a re no pathologically enlarged lymph nodes. There is no free intraperitoneal fluid. There is an intram uscular lipoma in left abdominal wall. There are subcutaneous injection sites in the anterior abdomin al wall. There is severe lumbar spondylosis and moderate thoracic spondylosis. IMPRESSION: 1. No etiology for anemia. Reviewed, dictated and finalized at location A. Y LEVEL ACCOUNT REPRESENTATIVE IMPRESSION: 1. No etiology for anemia.
--- NOTE | ~2021-11-24 | XR_ITS ---
XR chest port-a-cath/central 11/24/2021 16:06 Indication: Central line placement Procedure: AP portable chest Comparison: Comparison to multiple prior studies sequentially, with oldest reviewed study dated 10/28. Findings: Borderline heart size. Central line tip in the SVC near the cavoatrial junction. No focal a ir space disease, pulmonary edema, pleural effusion or suspected pneumothorax. Impression: 1: No acute cardiopulmonary disease. Reviewed, dictated and finalized at location B. GUARD Impression: 1: No acute cardiopulmonary disease.
--- NOTE | ~2021-11-24 | CT_ITS ---
EXAMINATION: CT brain wo con DATE: 11/24/2021 13:34 INDICATION: Head injury. Generalized weakness. TECHNIQUE: Computed tomography (CT) of the head was performed without intravenous contrast. The dose- length product was 605.33 mGy-cm. Automated exposure control and iterative reconstruction technique w ere employed. COMPARISON: CT dated 10/28/2019 FINDINGS: No acute intracranial hemorrhage, infarction, mass or mass effect. No ventriculomegaly or m idline shift. Basilar cisterns are patent. There are scattered mild periventricular and subcortical w cecilia matter changes, most likely related to small vessel ischemic disease (microangiopathy). Paranasa l sinuses and mastoids are pneumatized. No depressed skull fractures. IMPRESSION: 1. No acute intracranial abnormality. 2: Chronic age-related findings. Reviewed, dictated and finalized at location B. E GROOMER
--- NOTE | 2021-11-24 12:57 | ED.WEAKNESS ---
HPI - Weakness General Chief complaint: Weakness Stated complaint: ambulance Time Seen by Provider: 11/24/21 12:57 Source: patient History of Present Illness HPI Narrative: 75-year-old female with a history of hypertension, dyslipidemia, diabetes mellitus, chronic epigastric pain/ diverticulosis, chronic low back pain, CKD with a baseline creatinine of around 1.5, PVD/carotid stenosis, CAD status post OM stent in /ischemic cardiomyopathy with an EF of 40%/ diastolic dysfunction, pulmonary embolism on Coumadin since 2013 presented to the ER yesterday after a fall 1 week ago. The patient was noted to have -- multiple bruises. -- hip pains with bruising she presented to the ER yesterday and had blood work which revealed an H&H of 8.4/25.4 down from her previous level of 11.6/38, and a worsening BUN/ creatinine of 46/1.58 down from his prior levels of 52/1.7. She had an x-ray of the chest and pelvic CT did not show any acute findings. She presents to the ER today with -- multiple bruises all over her body which appeared to be old. Patient is on Coumadin -- ongoing oozing from a right IV line site. -- Generalized weakness with inability to walk. No focal deficit. -- vomiting mucoid staff. No abdominal pain. No diarrhea. No hematochezia or melena. blood sugar was noted to be 363. MD Complaint: generalized weakness Onset (ago): day(s) ( Weakness started yesterday.) Duration: constant Location: generalized Severity: moderate Relieving factors: none Exacerbating factors: none Related Data Home Medications Medication Instructions Recorded Confirmed Novolin 70/30 U-100 Insulin 15 unit SUBCUT QAM 10/29/19 11/24/21 ascorbic acid (vitamin C) [Vitamin 500 mg PO DAILY 10/30/19 11/24/21 C] cholecalciferol (vitamin D3) 25 25 mcg PO DAILY 11/02/19 11/24/21 mcg (1,000 unit) tablet omega-3 fatty acids 1,000 mg 2,000 mg PO DAILY cap 12/30/19 11/24/21 capsule loratadine [Claritin] 10 mg PO DAILY 03/12/20 11/24/21 Allergies Allergy/AdvReac Type Severity Reaction Status Date / Time codeine Allergy Mild Hives Verified 06/08/21 14:43 Review of Systems Review of Systems: All systems reviewed & are unremarkable except as noted in HPI and below Constitutional: Constitutional: Reports as per HPI, Reports no additional constitutional complaints and Reports weakness Eyes: Eyes: Reports as per HPI and Reports no additional eye complaints ENT: Reports system reviewed and no additional complaints, except as documented and Reports as per HPI Cardiovascular: Cardiovascular: Reports as per HPI and Reports no additional cardiovascular complaints Respiratory: Respiratory: Reports as per HPI and Reports no additional respiratory complaints Gastrointestinal: Gastrointestinal: Reports as per HPI, Reports no additional gastrointestinal complaints and Reports vomiting Comments: No hematemesis. Genitourinary: Genitourinary: Reports no additional female genitourinary complaints Musculoskeletal: Musculoskeletal: Reports no additional musculoskeletal complaints Integumentary/Breasts: Comments: Multiple bruises all over her body including right buttock, back, right knee, right arm, left arm Neurologic: Reports system reviewed and no additional complaints, except as documented and Reports as per HPI Psychiatric: Psychiatric: Reports no additional psychiatric complaints Endocrine: Endocrine: Reports no additional endocrine complaints Hematologic/Lymphatic: Hematologic/Lymphatic: Reports no additional hematologic/lymphatic complaints Allergic/Immunologic: Allergic/Immunologic: Reports no additional allergic/immunologic complaints [facility] Past Medical History Medical History (Updated 11/24/21 @ 16:11 by Henry Mccall MD) Abdominal pain, chronic, epigastric Acute upper respiratory infection CAD (coronary artery disease) Diagnosed in April 2015, OM stent Dr. Shay April 2015. Carotid stenosis Left ICA 75% stenosis Catar
--- NOTE | 2021-11-24 13:16 | ECG_ITS ---
Measurements Intervals [facility] Rate: 81 P: 53 PA: 170 QRS: -50 QRSD: 149 T: 71 QT: 436 QTc: 508 Interpretive Statements SINUS RHYTHM LEFT AXIS DEVIATION LEFT BUNDLE BRANCH BLOCK ABNORMAL ECG Electronically Signed On 11-24-2021 14:57:25 HR SPECIALIST by Brian Carson D.O.
[2021-11-24 14:24] LABS: Basophils Absolute Auto 0.05 K/mm3 (0.00-0.10); Basophils Percent Auto 0.4 % (0.0-1.0); Eosinophils Absolute Auto 0.07 K/mm3 (0.02-0.50); Eosinophils Percent Auto 0.6 % (1.0-6.0); Immature Granulocyte Percent A 0.9 % (0.0-0.0); Lymphocytes Percent Auto 13.5 % (18.0-42.0); Mean Corpuscular HGB Conc 32.5 g/dL (32.0-36.0); Mean Corpuscular Hemoglobin 27.4 pg (27.0-31.0); Mean Corpuscular Volume 84.3 fL (78.0-102.0); Mean Platelet Volume 10.9 fl (9.2-11.8); Monocytes Absolute Auto 0.57 K/mm3 (0.10-0.90); Monocytes Percent Auto 5.1 % (2.0-11.0); Neutrophils Absolute Auto 8.9 K/mm3 (1.7-7.2); Neutrophils Percent Auto 79.5 % (50.0-70.0); Platelet Count Result 231 K/mm3 (150-420); Red Cell Distribution Width 14.7 % (11.6-14.4); White Blood Count 11.2 K/mm3 (4.8-10.8)
[2021-11-24 14:24] LABS: Occult Blood Negative (Negative)
[2021-11-24 14:28] LABS: Hematocrit 19.4 % (35.0-42.0); Hemoglobin 6.3 g/dL (11.7-13.8)
[2021-11-24 14:34] LABS: Anion Gap 12 mmol/L (8-16); Blood Urea Nitrogen 56 mg/dL (7-18); Calcium 8.4 mg/dL (8.5-10.1); Carbon Dioxide 22 mmol/L (21-32); Chloride 97 mmol/L (98-108); Estimated Glomerular Filt Rate 25; Glucose 355 mg/dL (70-99); Osmolality Calculated 301 mOsm/kg (285-295); Potassium 5.8 mmol/L (3.5-5.1); Sodium 131 mmol/L (136-145)
[2021-11-24 14:45] LABS: Lactic Acid Reflex 1.2 mmol/L (0.4-2.0)
[2021-11-24 14:58] LABS: Troponin I 13.7 ng/L (0.00-60.4)
[2021-11-24 14:58] LABS: Creatine Kinase 335 U/L (26-192)
[2021-11-24 14:59] LABS: Thyroid Stimulating Hormone 0.63 uIU/mL (0.36-3.74)
[2021-11-24 15:03] LABS: INR 24.1; Partial Thromboplastin Time 105.3 SEC (23.90-30.70); Prothrombin Time > 90.0 Seconds (9.64-11.0)
--- NOTE | 2021-11-24 15:04 | PC.NURSE ---
PCR to Lab 15:00
[2021-11-24] MEDS: SODIUM CHLORIDE 0.9% IV 1,000 ML 500 ML IV CONT (15:25)
[2021-11-24 15:43] LABS: SARS-CoV-2 RNA PCR Negative (Negative)
[2021-11-24] MEDS: PHYTONADIONE ADULT INJ 10 MG in DEXTROSE 5% IN WATER 50 ML 100 MG IVPB (15:44)
[2021-11-24] MEDS: SODIUM BICARBONATE 8.4% 50 MEQ/50 ML SYRINGE IV PUSH (16:05)
[2021-11-24] MEDS: CALCIUM GLUC 1,000 MG/NS 50 ML 1,000 MG/50 ML BAG 100 MG IVPB (16:21)
[2021-11-24] MEDS: SODIUM POLYSTYRENE SULFONONATE 15 GM/60 ML BTL PO (16:22)
--- NOTE | 2021-11-24 16:31 | PC.NURSE ---
pt resting comfortably. taking few ice chips. FFP and NS infusing well through central line.
--- NOTE | 2021-11-24 16:42 | PC.NURSE ---
call returned from michelle, hospitalist. declined admission. dr singer notified.
[2021-11-24 17:45] LABS: Glucose Point of Care 295 mg/dl (65-105)
[2021-11-24] MEDS: INSULIN HUMAN REGULAR (*BKC) 100 UNITS/ML IV PUSH (17:45)
--- NOTE | 2021-11-24 17:48 | PC.NURSE ---
blood warmer applied to blood tubing. pt sleeping in bed. easily awakens.
--- NOTE | 2021-11-24 19:24 | PC.NURSE ---
report to kecia reyes
--- NOTE | 2021-11-24 19:53 | PC.NURSE ---
Addendum entered by Hayden Smith RN 11/24/21 19:53: GBAAS and loaded pt onto EMS stretcher with 0.9% NS running into central line site at 1938 on 11/24/21. Pt's belongings secured in med room awaiting pt's to tile picker. Original Note: RN continued fluids running and gave handoff report to
== END 2021-11-24 19:40 | disposition short-term general hospital (02) ==
PROVIDERS: Emergency Provider Internal Medicine Critical Care Medicine; PCP Internal Medicine
DX: D68.8 Other specified coagulation defects (principal); D62 Acute posthemorrhagic anemia; T14.8XXA Other injury of unspecified body region, initial encounter; N17.9 Acute kidney failure, unspecified; Z20.822 Contact with and (suspected) exposure to COVID-19; I25.10 Atherosclerotic heart disease of native coronary artery without angina pectoris; E11.9 Type 2 diabetes mellitus without complications; I10 Essential (primary) hypertension; E78.5 Hyperlipidemia, unspecified; Z87.891 Personal history of nicotine dependence
CPT/HCPCS: 36415; 36430; 36556; 70450; 74176; 80048; 82272; 82550; 82948; 83605; 84443; 84484; 85025; 85610; 85730; 86850; 86900; 86901; 86920; 93005; 96361; 96365; 96375; 99285; A9270; C1751; C9803; J0610; J1815; J3430; J7030; P9016; P9017; U0003; U0005

== ENCOUNTER 2021-12-01 14:32 | Emergency (ER) | payer MEDICARE, SELFPAY ==
--- NOTE | ~2021-12-01 | XR_ITS ---
EXAMINATION: XR chest 2V DATE: 12/01/2021 16:20 INDICATION: Shortness of breath. TECHNIQUE: Frontal and lateral views of the chest were obtained. COMPARISON: Chest single view 11/24/2021, CT abdomen and pelvis 11/24/2021 FINDINGS: There is mild atelectasis in lingula. No pleural effusion or pneumothorax. The heart size i s normal. There are prominent paracardial fat pads. IMPRESSION: 1. Mild atelectasis in lingula. Reviewed, dictated and finalized at location A. TEAM LEAD
[2021-12-01 14:45] VITALS: BP 151/78; PULSE 96; RESP 18; TEMP 36.6; O2SAT 98
--- NOTE | 2021-12-01 15:28 | PC.NURSE ---
pt states she was at [facility] for a GI bleed for a week. States she was discharged yesterday. pt reports having a large, bright red , incontinent bm while shopping at [employer] today. States she feels fatigued, and SOB. Pt noted to have purple and yellow bruising scattered to bilateral arms. States that happened during her hospitalization. Noted to have bruising to left chest, when asked she said that it happened while I was admitted . Pt is tearful during assessment.
[2021-12-01 15:46] LABS: Basophils Absolute Auto 0.1 K/mm3 (0.0-0.1); Basophils Percent Auto 0.7 % (0.2-1.2); Eosinophils Absolute Auto 0.3 K/mm3 (0-0.3); Eosinophils Percent Auto 3.1 % (0-4.4); Hematocrit 31.7 % (37.0-47.0); Hemoglobin 9.9 g/dL (12.0-15.0); Immature Granulocyte Absolute 0.08 K/mm3 (0.00-0.031); Immature Granulocyte Percent A 0.8 % (0-0.5); Lymphocytes Absolute Auto 2.13 K/mm3 (0.9-3.2); Lymphocytes Percent Auto 22.6 % (18.3-44.2); Mean Corpuscular HGB Conc 31.2 g/dl (32-36); Mean Corpuscular Hemoglobin 29.4 pg (26-34); Mean Corpuscular Volume 94.1 fl (80-100); Monocytes Absolute Auto 0.7 K/mm3 (0.1-0.6); Monocytes Percent Auto 6.9 % (2.6-8.5); Neutrophils Absolute Auto 6.2 K/mm3 (1.3-6.7); Neutrophils Percent Auto 65.9 % (45.5-73.1); Platelet Count Result 393 k/mm3 (150-375); Red Blood Count 3.37 M/mm3 (4.2-5.4); Red Cell Distribution Width 18.8 % (11.5-14.5); White Blood Count 9.4 K/mm3 (4.5-10.0)
[2021-12-01 15:53] LABS: Alanine Aminotransferase 185 U/L (4-35); Albumin Level 4.6 g/dL (3.5-5.1); Alkaline Phosphatase 61 U/L (38-126); Anion Gap 11 mmol/L (8-16); Aspartate Amino Transferase 134 U/L (14-36); Bilirubin,Total 2.1 mg/dL (0.2-1.3); Blood Urea Nitrogen 33 mg/dL (7-17); Calcium 9.2 mg/dL (8.4-10.2); Carbon Dioxide 24 mmol/L (22-30); Chloride 103 mmol/L (98-107); Estimated CRCL calculation 32 ml/min; Estimated Glomerular Filt Rate 44; Glucose 129 mg/dL (65-110); Potassium 3.8 mmol/L (3.4-5.0); Sodium 138 mmol/L (137-145)
[2021-12-01 15:59] LABS: INR 1.1; Prothrombin Time 14.1 Seconds (11.1-14.7)
[2021-12-01 16:00] LABS: Partial Thromboplastin Time 24.3 SECONDS (22.3-36.8)
--- NOTE | 2021-12-01 16:09 | ECG_ITS ---
Measurements Intervals [facility] Rate: 82 P: 36 MN: 178 QRS: 43 QRSD: 99 T: 38 QT: 380 QTc: 445 Interpretive Statements SINUS RHYTHM LOW QRS VOLTAGE IN PRECORDIAL LEADS [QRS DEFLECTION < 1.0 mV IN CHEST LEADS] NONSPECIFIC T-WAVE ABNORMALITY COMPARED TO ECG 11/24/2021 13:42:45 Left bundle-branch block is no longer appreciated Electronically Signed On 12-02-2021 14:17:34 GEOCHEMICAL MANAGER by Guy Steele M.D.
[2021-12-01 16:25] VITALS: BP 134/56; PULSE 89
[2021-12-01 16:30] VITALS: BP 114/80; PULSE 95
[2021-12-01] MEDS: ONDANSETRON INJ 4 MG/2 ML VIAL IV PUSH (16:30)
[2021-12-01] MEDS: PANTOPRAZOLE SODIUM IV 40 MG VIAL IV PUSH (16:31)
--- NOTE | 2021-12-01 16:34 | ED.GIBLEED ---
HPI - GI Bleed General Chief complaint: GI Bleed Stated complaint: black stool Time Seen by Provider: 12/01/21 15:19 Source: patient and RN notes reviewed Mode of arrival: ambulatory Limitations: no limitations History of Present Illness HPI Narrative: This is a 75 year old female with history of anemia and chronic kidney disease who presents for evaluation of dark stools. Patient states she fell 2-3 weeks ago and she suffered significant bruising to her body. She was taking warfarin and she was found to be significantly anemic after her fall. She received a blood transfusion and she was transferred to [place] 11/24/21. She was not found to have any acute fractures. Her CT scans did not shows any significant hematomas. She was discharged from [place] 2 days after, and her warfarin was discontinued. She was able to run some errands today with her family. On return home, she reports loose dark bowel movement. She has nausea but denies vomiting . She has chronic shortness of breath. Patient denies taking iron but her son states she has been taking pepto bismal. She denies having GI bleeding at [place]. Related Data Home Medications Medication Instructions Recorded Confirmed Novolin 70/30 U-100 Insulin 15 unit SUBCUT QAM 10/29/19 11/24/21 ascorbic acid (vitamin C) [Vitamin 500 mg PO DAILY 10/30/19 11/24/21 C] cholecalciferol (vitamin D3) 25 25 mcg PO DAILY 11/02/19 11/24/21 mcg (1,000 unit) tablet omega-3 fatty acids 1,000 mg 2,000 mg PO DAILY cap 12/30/19 11/24/21 capsule loratadine [Claritin] 10 mg PO DAILY 03/12/20 11/24/21 Allergies Allergy/AdvReac Type Severity Reaction Status Date / Time codeine Allergy Mild Hives Verified 12/01/21 11:07 Review of Systems Review of Systems: All systems reviewed & are unremarkable except as noted in HPI and below PMFSH Past Medical History Medical History (Updated 12/01/21 @ 17:36 by Merle Braun MD) Abdominal pain, chronic, epigastric Acute upper respiratory infection CAD (coronary artery disease) Diagnosed in April 2015, OM stent Dr. Shay April 2015. Carotid stenosis Left ICA 75% stenosis Cataract Diabetes mellitus Diverticulosis of colon Diverticulosis of large intestine without perforation or abscess without bleeding HTN (hypertension) Hyperlipidemia Ischemic cardiomyopathy Echo 2015 showed dilated LV EF 40%. Paradoxical septal motion from conduction abnormality + anteroseptal akinesis. Diastolic dysfunction. Labile hypertension Low back pain Lumbosacral radiculopathy at L5 Medical non-compliance Normocytic anemia Sinus tachycardia Stage 3 chronic kidney disease Type II diabetes mellitus Uncontrolled type II diabetes mellitus Surgical History Surgical History (System 12/01/21 @ 11:07 by Latoya Bella) Cataract extraction status Bilaterally H/O heart artery stent April 2014 H/O: hysterectomy Family History Family History (System 12/01/21 @ 11:07 by Latoya Bella) Mother Hypertension Sibling Thyroid cancer Hypertension Sibling Hypertension Sibling Hypertension Sibling Alzheimers disease Social History Social History (System 12/01/21 @ 11:07 by Latoya Bella) Social History: BOBBI is her son Louis. The patient had 4 children and 1 of her sons at the age of 19. She raised 1 of her granddaughters and is now raising a great grandson that is 12 years old. She also has a disabled son in his 50s who is living with her. She is and retired from [employer]. Lifelong nonsmoker. She is also taking her elderly mother who is in her 90s. Her mother does not live with her. Smoking status: Former smoker Second hand tobacco smoke exposure: Yes Alcohol intake: never Substance use: never Gender identity (if verbalized by the patient): Female Spiritual care concerns: No Agree to blood products: Yes Exam Const: General: no acute distress and alert Orientation/consciousness:
[2021-12-01 16:35] VITALS: BP 108/60; PULSE 96
[2021-12-01 17:11] VITALS: BP 137/60; PULSE 81; RESP 18; O2SAT 100
[2021-12-01 17:22] LABS: Hepatitis B Surface Antigen Negative (Negative)
[2021-12-01 17:28] LABS: HAV RESULT Negative (Negative); Hepatitis B Core IgM Result Negative (Negative)
[2021-12-01 17:40] LABS: Hepatitis C Virus Antibody Negative (Negative)
[2021-12-01 17:45] VITALS: BP 142/78; PULSE 68; RESP 18; O2SAT 98
== END 2021-12-01 17:46 | disposition home or self-care (01) ==
PROVIDERS: Emergency Provider General Practice; PCP Internal Medicine
DX: R19.5 Other fecal abnormalities (principal); R74.01 Elevation of levels of liver transaminase levels; D64.9 Anemia, unspecified; I25.10 Atherosclerotic heart disease of native coronary artery without angina pectoris; E11.22 Type 2 diabetes mellitus with diabetic chronic kidney disease; I12.9 Hypertensive chronic kidney disease with stage 1 through stage 4 chronic kidney disease, or unspecified chronic kidney disease; N18.30 Chronic kidney disease, stage 3 unspecified; E78.5 Hyperlipidemia, unspecified; I25.5 Ischemic cardiomyopathy; Z98.42 Cataract extraction status, left eye; Z98.41 Cataract extraction status, right eye; Z95.5 Presence of coronary angioplasty implant and graft; Z77.22 Contact with and (suspected) exposure to environmental tobacco smoke (acute) (chronic); R94.31 Abnormal electrocardiogram [ECG] [EKG]; Z79.82 Long term (current) use of aspirin; Z79.4 Long term (current) use of insulin
CPT/HCPCS: 36415; 71046; 80053; 80074; 85025; 85610; 85730; 86850; 86900; 86901; 93005; 96374; 96375; 99284; C9113; J2405

== ENCOUNTER 2021-12-06 12:40 | Outpatient (CLI) | payer MEDICARE, SELFPAY ==
[2021-12-06 12:55] LABS: Basophils Absolute Auto 0.07 K/mm3 (0.00-0.10); Basophils Percent Auto 0.9 % (0.0-1.0); Eosinophils Absolute Auto 0.22 K/mm3 (0.02-0.50); Eosinophils Percent Auto 2.8 % (1.0-6.0); Hematocrit 32.7 % (35.0-42.0); Hemoglobin 10.4 g/dL (11.7-13.8); Immature Granulocyte Absolute 0.03 K/mm3 (0.00-0.00); Immature Granulocyte Percent A 0.4 % (0.0-0.0); Lymphocytes Percent Auto 21.6 % (18.0-42.0); Mean Corpuscular HGB Conc 31.8 g/dL (32.0-36.0); Mean Corpuscular Hemoglobin 30.1 pg (27.0-31.0); Mean Corpuscular Volume 94.5 fL (78.0-102.0); Mean Platelet Volume 9.5 fl (9.2-11.8); Monocytes Absolute Auto 0.52 K/mm3 (0.10-0.90); Monocytes Percent Auto 6.6 % (2.0-11.0); Neutrophils Absolute Auto 5.3 K/mm3 (1.7-7.2); Neutrophils Percent Auto 67.7 % (50.0-70.0); Platelet Count Result 390 K/mm3 (150-420); Red Blood Count 3.46 M/mm3 (4.20-5.40); Red Cell Distribution Width 18.1 % (11.6-14.4); White Blood Count 7.9 K/mm3 (4.8-10.8)
[2021-12-06 13:40] LABS: Alanine Aminotransferase 54 U/L (14-59); Albumin Level 3.7 g/dL (3.4-5.0); Alkaline Phosphatase 53 U/L (46-116); Anion Gap 11 mmol/L (8-16); Aspartate Amino Transferase 16 U/L (15-37); Bilirubin,Total 0.9 mg/dL (0.00-1.00); Blood Urea Nitrogen 54 mg/dL (7-18); Carbon Dioxide 32 mmol/L (21-32); Chloride 100 mmol/L (98-108); Estimated Glomerular Filt Rate 31; Glucose 166 mg/dL (70-99); Osmolality Calculated 314 mOsm/kg (285-295); Potassium 3.7 mmol/L (3.5-5.1); Sodium 143 mmol/L (136-145); Total Protein 6.5 g/dL (6.4-8.2)
== END 2021-12-06 12:41 | disposition home or self-care (01) ==
LOC: CHSLAB 12:41
PROVIDERS: PCP Internal Medicine; Visit Provider Internal Medicine
DX: D64.9 Anemia, unspecified (principal); R94.5 Abnormal results of liver function studies
CPT/HCPCS: 36415; 80053; 85025

== ENCOUNTER 2021-12-19 08:01 | Outpatient (CLI) | payer MEDICARE, SELFPAY ==
[2021-12-19 08:13] LABS: Basophils Absolute Auto 0.08 K/mm3 (0.00-0.10); Basophils Percent Auto 1.1 % (0.0-1.0); Eosinophils Absolute Auto 0.41 K/mm3 (0.02-0.50); Eosinophils Percent Auto 5.6 % (1.0-6.0); Hematocrit 36.8 % (35.0-42.0); Hemoglobin 11.3 g/dL (11.7-13.8); Immature Granulocyte Absolute 0.03 K/mm3 (0.00-0.00); Immature Granulocyte Percent A 0.4 % (0.0-0.0); Lymphocytes Percent Auto 25.9 % (18.0-42.0); Mean Corpuscular HGB Conc 30.7 g/dL (32.0-36.0); Mean Corpuscular Hemoglobin 29.3 pg (27.0-31.0); Mean Corpuscular Volume 95.3 fL (78.0-102.0); Monocytes Absolute Auto 0.51 K/mm3 (0.10-0.90); Neutrophils Absolute Auto 4.4 K/mm3 (1.7-7.2); Platelet Count Result 267 K/mm3 (150-420); Red Blood Count 3.86 M/mm3 (4.20-5.40); White Blood Count 7.3 K/mm3 (4.8-10.8)
[2021-12-19 08:36] LABS: Partial Thromboplastin Time 24.2 SEC (23.90-30.70); Prothrombin Time 10.5 Seconds (9.50-12.10)
[2021-12-19 08:58] LABS: Alanine Aminotransferase 24 U/L (14-59); Albumin Level 3.7 g/dL (3.4-5.0); Alkaline Phosphatase 47 U/L (46-116); Anion Gap 8 mmol/L (8-16); Aspartate Amino Transferase 13 U/L (15-37); Bilirubin,Total 0.4 mg/dL (0.00-1.00); Blood Urea Nitrogen 50 mg/dL (7-18); Calcium 8.9 mg/dL (8.5-10.1); Carbon Dioxide 27 mmol/L (21-32); Chloride 103 mmol/L (98-108); Estimated Glomerular Filt Rate 34; Glucose 200 mg/dL (70-99); Osmolality Calculated 305 mOsm/kg (285-295); Potassium 4.4 mmol/L (3.5-5.1); Sodium 138 mmol/L (136-145); Total Protein 6.5 g/dL (6.4-8.2)
== END 2021-12-19 08:02 | disposition home or self-care (01) ==
LOC: CHSLAB 08:04
PROVIDERS: PCP Internal Medicine; Visit Provider Internal Medicine
DX: D64.9 Anemia, unspecified (principal); Z79.01 Long term (current) use of anticoagulants; I12.9 Hypertensive chronic kidney disease with stage 1 through stage 4 chronic kidney disease, or unspecified chronic kidney disease; N18.30 Chronic kidney disease, stage 3 unspecified
CPT/HCPCS: 36415; 80053; 85025; 85610; 85730

== ENCOUNTER 2022-01-04 08:13 | Outpatient (CLI) | payer MEDICARE, SELFPAY ==
--- NOTE | ~2022-01-04 | MR_ITS ---
EXAMINATION: MR MRCP wo con/w 3D wo ind pp DATE: 01/04/2022 09:18 INDICATION: Cyst of the pancreas TECHNIQUE: Magnetic resonance imaging (MRI) of the abdomen was performed without intravenous contrast . Sequences included coronal T2-weighted SS-FSE, coronal T2-weighted FS SS-FSE, coronal T2-weighted F S FIESTA, axial T2-weighted FS FIESTA, axial T2-weighted FIESTA, sagittal T2-weighted SS-FSE, axial T 1-weighted dual-echo FSPGR, axial T2-weighted SS-FSE, axial T1-weighted LAVA, axial T2-weighted STIR FSE. Thick-slab T2-weighted FRFSE-XL images were obtained for magnetic resonance cholangiopancreatogr aphy (MRCP). Rotating maximum intensity projection 3-D reconstructions of the volumetric data were cr eated by the technologist. Contrast unable to be utilized due to renal insufficiency. COMPARISON: CT dated 11/24/2021 FINDINGS: ABDOMEN MRI: Heart size is normal. No pericardial or pleural effusion. Liver is normal. Gallbladder is not visuali zed and likely surgically absent. Spleen and right adrenal gland are normal. 1.5 cm left adrenal darnell kristan with diagnostic signal dropout on opposed phase images. There is fatty atrophy of the uncinate pr ocess of the pancreas. There are multiple homogeneous and T2 hyperintense cystic lesions without disc ernible solid component throughout the pancreas. The largest at the pancreatic body measures 1.7 x 1. 0 x 0.9 cm with a clearly defined thin neck extending to the normal caliber main pancreatic duct. The second largest measures 11 x 8 x 5 mm more distally in the body. There are few additional tiny cysti c lesions in the body and tail of the pancreas. At the head of the pancreas there are numerous <5 mm cystic lesions and linear more linear dilated ducts. Bilateral kidneys are normal. Visualized portion s of the bowels are unremarkable with no obstruction. No pathologically enlarged abdominal lymphadeno sukhwinder. Mild lumbar levocurvature with moderate spondylosis. Fibrovascular degenerative endplate eli es at the right side of L2-L3. Marrow signal is otherwise normal. ABDOMEN MRCP: Common bile duct is dilated to 9 mm likely related to prior cholecystectomy. No evident choledocholithiasis. No intrahepatic biliary ductal dilation. Main pancreatic duct is normal in fabian feliz. Tiny pancreatic ductal side branches at the head of the pancreas along with multiple small cysti c pancreatic lesions, several demonstrating communication with the pancreatic ducts. IMPRESSION: 1. Numerous small cystic lesions scattered throughout the pancreas, few demonstrating medication with the duct. 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 Reviewed, dictated and finalized at location B. IMPRESSION: 1. Numerous small cystic lesions scattered throughout the pancreas, few demonst rating medication with the duct. Given the widespread distribution would strong ly favor small pseudocysts and dilated side branches related to chronic pancrea titis over intraductal papillary mucinous neoplasm (IPMN).
== END 2022-01-04 08:14 | disposition home or self-care (01) ==
PROVIDERS: PCP Internal Medicine; Visit Provider Nurse Practitioner Family
DX: K86.2 Cyst of pancreas (principal)
CPT/HCPCS: 74181; 76376

== ENCOUNTER 2022-01-18 07:59 | Outpatient (CLI) | payer MEDICARE, SELFPAY ==
[2022-01-18 08:27] LABS: Creatinine Urine 66.91 mg/dL (40-278); MALB Creatinine Ratio 21.8 mg/g (0-30); Microalbumin Urine Random 14.6 mg/L
[2022-01-18 08:30] LABS: Hemoglobin A1C 8.8 % (<5.7)
[2022-01-18 09:04] LABS: Alanine Aminotransferase 21 U/L (14-59); Albumin Level 3.8 g/dL (3.4-5.0); Alkaline Phosphatase 43 U/L (46-116); Anion Gap 7 mmol/L (8-16); Aspartate Amino Transferase 11 U/L (15-37); Bilirubin,Total 0.2 mg/dL (0.00-1.00); Blood Urea Nitrogen 70 mg/dL (7-18); Carbon Dioxide 28 mmol/L (21-32); Chloride 103 mmol/L (98-108); Cholesterol 273 mg/dL (0-200); Estimated Glomerular Filt Rate 31; Free T4 Free Thyroxine 1.07 ng/dL (0.76-1.46); Glucose 124 mg/dL (70-99); HDL Direct 39 mg/dL (40-60); LDL Cholesterol Calculated 195 mg/dL (<130); Magnesium 2.2 mg/dL (1.8-2.4); Osmolality Calculated 307 mOsm/kg (285-295); Potassium 4.8 mmol/L (3.5-5.1); Sodium 138 mmol/L (136-145); Total Protein 6.7 g/dL (6.4-8.2); Triglycerides 194 mg/dL (0-150)
== END 2022-01-18 08:00 | disposition home or self-care (01) ==
LOC: CHSLAB 08:01
PROVIDERS: PCP Internal Medicine; Visit Provider Internal Medicine Cardiovascular Disease
DX: E78.5 Hyperlipidemia, unspecified (principal); E11.65 Type 2 diabetes mellitus with hyperglycemia
CPT/HCPCS: 36415; 80053; 80061; 82043; 83036; 83735; 84439; 84443

== ENCOUNTER 2022-01-19 07:57 | Outpatient (CLI) | payer MEDICARE, SELFPAY ==
--- NOTE | ~2022-01-19 | MM_ITS ---
EXAMINATION: MM screening any BI w [facility] HISTORY: Screening mammogram TECHNIQUE: Craniocaudal and mediolateral oblique 3-D tomosynthesis images were obtained and synthetic 2-D images were generated. CAD analysis was submitted and interpreted. COMPARISON: January 06, 2019, February 17, 2016, May 13, 2014 bilateral screening mammogram examinations BREAST PARENCHYMAL COMPOSITION: There are scattered areas of fibroglandular density. FINDINGS: There are scattered bilateral benign calcifications. There is no evidence of suspicious mas s, calcification, or architectural distortion to suggest malignancy in either breast. There has been no suspicious interval change. IMPRESSION: 1. No mammographic evidence of malignancy. 2. Recommend routine screening mammography in one year. BI-RADS Category 1: Negative Reviewed, dictated and finalized at location A.
--- NOTE | ~2022-01-19 | DEXA_ITS ---
Bone Density Report Name: RAFA FOSTER Age: 76 Sex: Female Ethnicity: White Date of : 1945 Indication: postmenopausal; screening for osteoporosis; height loss; hysterectomy; Referring Provider: Neftali Torres Study: Bone densitometry was performed. Exam Date: January 19, 2022 Accession number: [id number] Bone Density: Region BMD T-score Z-score Classification AP Spine(L1, L2, L3) 1.123 1.0 3.3 Normal Femoral Neck (Left) 0.628 -2.0 0.0 Osteopenia Total Hip (Left) 0.863 -0.6 1.1 Normal Femoral Neck (Right) 0.638 -1.9 0.1 Osteopenia Total Hip (Right) 0.836 -0.9 0.9 Normal Femoral Neck Mean 0.633 -1.9 0.1 Osteopenia Total Hip Mean 0.850 -0.8 1.0 Normal World Health Organization criteria for BMD impression classify patients as: Normal (T-score at or above -1.0), Osteopenia (T-score between -1.0 and -2.5), or Osteoporosis (T-score at or below -2.5). 10-year Fracture Risk(1): Major Osteoporotic Fracture 12% Hip Fracture 2.8% Reported Risk Factors: [place] (), Neck BMD=0.628, BMI=29.9 (1) FRAX(R) Version 3.08. Fracture probability calculated for an untreated patient. Fracture probability may be lower if the patient has received treatment. Clinical Information Provided by Patient: Has used the following medications: Vitamin D Has the following medical conditions: Hysterectomy, high blood pressure Patient maximum height was 60 Menopause Age: 56 No regular weight bearing exercise Drinks caffeinated beverages Onset of menses at age 15 Number of children 4 Impression: The patient has low bone mass, based on the Left Femoral Neck T-score. Discussion: BONE DENSITY IS LOW AT ONE OR MORE SKELETAL SITES. This patient's lowest T-score is low at one or more skeletal sites. It meets the World Health Organization's (WHO) criteria for ?low bone mass? (T-score between -1.0 and -2.5). The patient's 10-year risk of fracture as calculated by FRAX is less than the threshold where pharmacological therapy is recommended by the National Osteoporosis Foundation (NOF). However, all treatment decisions require clinical judgment and consideration of individual patient factors, including patient preferences, comorbidities, previous drug use, risk factors not captured in the FRAX model (e.g., frailty, falls, vitamin D deficiency, increased bone turnover, interval significant decline in bone density) and possible under or overestimation of fracture risk by FRAX. The patient should follow a healthful lifestyle (good nutrition with adequate calcium and vitamin D, and appropriate weight-bearing exercise). Follow-Up: Consider repeating this study in 2 to 3 years to reassess this patient's status, or sooner if there is some new clinical indication. Reported by: Dr. Shipman
== END 2022-01-19 07:58 | disposition home or self-care (01) ==
LOC: CHSIMG 07:58
PROVIDERS: PCP Internal Medicine; Visit Provider Internal Medicine
DX: Z12.31 Encounter for screening mammogram for malignant neoplasm of breast (principal); M81.0 Age-related osteoporosis without current pathological fracture
CPT/HCPCS: 77063; 77067; 77080

== ENCOUNTER 2022-02-23 14:28 | Outpatient (CLI) | payer MEDICARE, SELFPAY ==
[2022-02-25 23:20] LABS: Homocysteine 24.7 umol/L (<10.4)
[2022-02-26 20:04] LABS: Antithrombin III Activity 131 % normal (80-135)
[2022-02-28 19:33] LABS: Lupus dRVVT 1:1 Mix Interpreta Not Indicated; Lupus dRVVT Screen 39 sec (<=45); PTT-LA Screen 29 sec (<=40)
[2022-03-02 23:56] LABS: Factor V (Leiden) Mutation NEGATIVE
== END 2022-02-23 14:29 | disposition home or self-care (01) ==
LOC: CHSLAB 14:32
PROVIDERS: PCP Internal Medicine; Visit Provider Internal Medicine Hematology & Oncology
DX: D68.69 Other thrombophilia (principal); Z79.01 Long term (current) use of anticoagulants
CPT/HCPCS: 36415; 81240; 81241; 83090; 85300; 85303; 85306; 85613; 85730; 86146

== ENCOUNTER 2022-03-30 00:37 | Day surgery (SDC) | payer MEDICARE, SELFPAY ==
[2022-03-20 10:24] VITALS: BMI 28.9
--- NOTE | 2022-03-20 10:41 | PC.NURSE ---
pt scheduled for egd/colonoscopy on march 30, 2022. called pt to discuss procedure and she asked that colonoscopy be canceled for now and she is not sure whenor if she will reschedule. states her daugher was killed 2 weeks in a mva. she wants to proceed with egd. pt emotional, so only did a brief update to her h and p. she states no changes since last seen in office a few months ago.
[2022-03-30 08:46] LABS: Glucose Point of Care 132 mg/dl (65-105)
[2022-03-30 09:09] VITALS: BP 132/54; PULSE 73; RESP 16; TEMP 36.5; O2SAT 96; BMI 29.5
[2022-03-30] MEDS: LACTATED RINGERS 1,000 ML 150 ML IV CONT (09:18)
--- NOTE | 2022-03-30 09:32 | WPDANESEPPF ---
Anes - Initial Pre Proc Eval Procedure: Operation Date: 03/30/22 10:30 Proposed Procedures p Esophagogastroduodenoscopy - Cuate Smith MD Date/Time: 03/30/22 09:32 Surgeon: Cuate Smith MD Pre Op Diagnosis: VINAY Patient Data Age: 76 Gender: F Height: 1.5 m Weight: 66.3 kg Last Vital Signs Temp 97.7 F 03/30/22 09:09 Pulse 73 03/30/22 09:09 Resp 16 03/30/22 09:09 BP 132/54 L 03/30/22 09:09 Pulse Ox 96 03/30/22 09:09 O2 Del Method Room Air 03/30/22 09:09 Allergies Allergy/AdvReac Type Severity Reaction Status Date / Time codeine Allergy Mild Hives Verified 03/30/22 09:08 tramadol Allergy Mild Unknown Verified 03/30/22 09:08 Home Medications Medication Instructions Recorded Confirmed Type insulin human U-100 NPH-regulr 15 unit subcut QAM 10/29/19 03/30/22 History 70-30 mix 100 unit/mL subcutaneous susp (Novolin 70/30 U-100 Insulin) aspirin 81 mg tablet,delayed 81 mg PO QAM 30 days #30 tabs 10/31/19 03/30/22 Rx release furosemide 40 mg tablet See Rx Instructions .Route 11/08/21 03/30/22 Rx .COMPLEX #90 tabs lisinopril 10 mg tablet 10 mg PO DAILY 12/28/21 03/30/22 History rosuvastatin 20 mg tablet (Crestor) 20 mg PO DAILY #90 tabs 01/18/22 03/30/22 Rx dapagliflozin 10 mg tablet 10 tablet PO DAILY 03/20/22 03/30/22 History (Farxiga) glimepiride 2 mg tablet 2 tablet PO BID 03/20/22 03/30/22 History metoprolol succinate 50 mg 50 mg PO DAILY 03/20/22 03/30/22 History tablet,extended release 24 hr sitagliptin 25 mg tablet (Januvia) 25 tablet PO DAILY 03/20/22 03/30/22 History Laboratory Tests 03/30/22 08:43 POC Capillary Glucose 132 mg/dl H mg/dl (65-105) Patient hx anesthesia problems: none Family hx anesthesia problems: none Results Review: All pre-operative results and documents have been reviewed as part of the pre-operative evaluation. [facility] Past Medical History Medical History Abdominal pain, chronic, epigastric Acute upper respiratory infection CAD (coronary artery disease) Diagnosed in April 2015, OM stent Dr. Shay April 2015. Carotid stenosis Left ICA 75% stenosis Cataract Diabetes mellitus Diverticulosis of colon Diverticulosis of large intestine without perforation or abscess without bleeding HTN (hypertension) Hyperlipidemia Ischemic cardiomyopathy Echo 2015 showed dilated LV EF 40%. Paradoxical septal motion from conduction abnormality + anteroseptal akinesis. Diastolic dysfunction. Labile hypertension Low back pain Lumbosacral radiculopathy at L5 Medical non-compliance Melena Normocytic anemia Pancreatic cyst Sinus tachycardia Stage 3 chronic kidney disease Type II diabetes mellitus Uncontrolled type II diabetes mellitus Surgical History Surgical History Cataract extraction status Bilaterally H/O heart artery stent April 2014 H/O: hysterectomy Family History Family History Mother Hypertension Sibling Thyroid cancer Hypertension Sibling Hypertension Sibling Hypertension Sibling Alzheimers disease Social History Social History Social History: BOBBI is her son Louis. The patient had 4 children and 1 of her sons at the age of 19. She raised 1 of her granddaughters and is now raising a great grandson that is 12 years old. She also has a disabled son in his 50s who is living with her. She is and retired from [employer]. Lifelong nonsmoker. She is also taking her elderly mother who is in her 90s. Her mother does not live with her. Smoking status: Former smoker Tobacco type: cigarettes Second hand tobacco smoke exposure: Yes Alcohol intake: never Substance use: never Substance use type: does not use Living ar
--- NOTE | 2022-03-30 09:32 | PM.HPGS ---
History of Present Illness History of Present Illness Consent: Risks, benefits, and alternatives have been discussed and questions answered. Patient agrees to proceed with procedure. Chief complaint: VINAY Narrative: Tran Bryan is a 76 year old female who had acute anemia earlier this year in setting of supratherapeutic inr (she is not longer on coumadin) with dark stool. She has not had any more issues since discontinued coumadin. Review of Systems Constitutional: Constitutional: Denies headache(s) and Denies weakness Eyes: Eyes: Denies blurry vision ENT: Reports Normal hearing present, Denies headache(s) and Denies neck pain Cardiovascular: Cardiovascular: Denies chest pain and Denies dyspnea Respiratory: Respiratory: Denies dyspnea Gastrointestinal: Gastrointestinal: Reports no additional gastrointestinal complaints Genitourinary: Genitourinary: Denies dysuria Musculoskeletal: Musculoskeletal: Denies neck pain Integumentary/Breasts: Skin/Breast: Denies dry skin Neurologic: Reports Normal hearing present, Denies headache(s) and Denies weakness Psychiatric: Psychiatric: Denies anxiety Endocrine: Endocrine: Denies change in body appearance Hematologic/Lymphatic: Hematologic/Lymphatic: Denies easy bleeding Allergic/Immunologic: Allergic/Immunologic: Denies urticaria PMFSH Past Medical History Medical History Abdominal pain, chronic, epigastric Acute upper respiratory infection CAD (coronary artery disease) Diagnosed in April 2015, OM stent Dr. Shay April 2015. Carotid stenosis Left ICA 75% stenosis Cataract Diabetes mellitus Diverticulosis of colon Diverticulosis of large intestine without perforation or abscess without bleeding HTN (hypertension) Hyperlipidemia Ischemic cardiomyopathy Echo 2015 showed dilated LV EF 40%. Paradoxical septal motion from conduction abnormality + anteroseptal akinesis. Diastolic dysfunction. Labile hypertension Low back pain Lumbosacral radiculopathy at L5 Medical non-compliance Melena Normocytic anemia Pancreatic cyst Sinus tachycardia Stage 3 chronic kidney disease Type II diabetes mellitus Uncontrolled type II diabetes mellitus Surgical History Surgical History Cataract extraction status Bilaterally H/O heart artery stent April 2014 H/O: hysterectomy Family History Family History Mother Hypertension Sibling Thyroid cancer Hypertension Sibling Hypertension Sibling Hypertension Sibling Alzheimers disease Social History Social History Social History: BOBBI is her son Louis. The patient had 4 children and 1 of her sons at the age of 19. She raised 1 of her granddaughters and is now raising a great grandson that is 12 years old. She also has a disabled son in his 50s who is living with her. She is and retired from [employer]. Lifelong nonsmoker. She is also taking her elderly mother who is in her 90s. Her mother does not live with her. Smoking status: Former smoker Tobacco type: cigarettes Second hand tobacco smoke exposure: Yes Alcohol intake: never Substance use: never Substance use type: does not use Living arrangements: with family Gender identity (if verbalized by the patient): Female Spiritual care concerns: No Agree to blood products: Yes Meds Home Medications and Allergies Home Medications Medication Instructions Recorded Confirmed Type insulin human U-100 NPH-regulr 15 unit subcut QAM 10/29/19 03/30/22 History 70-30 mix 100 unit/mL subcutaneous susp (Novolin 70/30 U-100 Insulin) aspirin 81 mg tablet,delayed 81 mg PO QAM 30 days #30 tabs 10/31/19 03/30/22 Rx release furosemide 40 mg tablet See Rx Instructions .Route 11/08/21 03/30/22 Rx .CO
[2022-03-30 09:48] VITALS: BP 108/52; PULSE 57; RESP 18; O2SAT 100
[2022-03-30 09:58] VITALS: BP 125/64; PULSE 64; RESP 22; O2SAT 99
[2022-03-30 10:00] LABS: Glucose Point of Care 121 mg/dl (65-105)
[2022-03-30 10:08] VITALS: BP 142/73; PULSE 60; RESP 14; O2SAT 100
== END 2022-03-30 10:21 | disposition home or self-care (01) ==
PROVIDERS: PCP Internal Medicine; Visit Provider Internal Medicine Gastroenterology
PROC: 0DJ08ZZ Inspection of Upper Intestinal Tract, Via Natural or Artificial Opening Endoscopic (ICD-10-PCS; CPT 43235; principal; 2022-03-30 10:30)
DX: K92.1 Melena (principal); K31.84 Gastroparesis; D50.0 Iron deficiency anemia secondary to blood loss (chronic); I25.10 Atherosclerotic heart disease of native coronary artery without angina pectoris; Z87.891 Personal history of nicotine dependence; R10.13 Epigastric pain; E11.9 Type 2 diabetes mellitus without complications; K57.30 Diverticulosis of large intestine without perforation or abscess without bleeding; E78.5 Hyperlipidemia, unspecified; I25.5 Ischemic cardiomyopathy; M54.16 Radiculopathy, lumbar region; D64.9 Anemia, unspecified; K86.2 Cyst of pancreas; R00.0 Tachycardia, unspecified; I13.10 Hypertensive heart and chronic kidney disease without heart failure, with stage 1 through stage 4 chronic kidney disease, or unspecified chronic kidney disease; N18.30 Chronic kidney disease, stage 3 unspecified; E11.22 Type 2 diabetes mellitus with diabetic chronic kidney disease; I65.22 Occlusion and stenosis of left carotid artery; Z79.82 Long term (current) use of aspirin; Z79.4 Long term (current) use of insulin
CPT/HCPCS: 43239; 82948; 88305; J2001; J2704; J7120

== ENCOUNTER 2022-04-09 07:49 | Outpatient (CLI) | payer MEDICARE, SELFPAY ==
[2022-04-09 08:14] LABS: Basophils Absolute Auto 0.08 K/mm3 (0.00-0.10); Basophils Percent Auto 0.9 % (0.0-1.0); Eosinophils Absolute Auto 0.44 K/mm3 (0.02-0.50); Eosinophils Percent Auto 4.9 % (1.0-6.0); Hematocrit 36.2 % (35.0-42.0); Hemoglobin 11.3 g/dL (11.7-13.8); Immature Granulocyte Absolute 0.03 K/mm3 (0.00-0.00); Immature Granulocyte Percent A 0.3 % (0.0-0.0); Lymphocytes Absolute Auto 2.39 K/mm3 (1.10-4.50); Lymphocytes Percent Auto 26.4 % (18.0-42.0); Mean Corpuscular HGB Conc 31.2 g/dL (32.0-36.0); Mean Corpuscular Hemoglobin 28.3 pg (27.0-31.0); Mean Corpuscular Volume 90.5 fL (78.0-102.0); Mean Platelet Volume 10.7 fl (9.2-11.8); Monocytes Percent Auto 6.6 % (2.0-11.0); Neutrophils Absolute Auto 5.5 K/mm3 (1.7-7.2); Neutrophils Percent Auto 60.9 % (50.0-70.0); Platelet Count Result 279 K/mm3 (150-420); Red Cell Distribution Width 14.1 % (11.6-14.4); White Blood Count 9.1 K/mm3 (4.8-10.8)
[2022-04-09 08:24] LABS: Creatinine Urine 69.72 mg/dL (40-278); MALB Creatinine Ratio 23.8 mg/g (0-30); Microalbumin Urine Random 16.6 mg/L
[2022-04-09 08:26] LABS: Hemoglobin A1C 8.2 % (<5.7)
[2022-04-09 08:41] LABS: Alanine Aminotransferase 20 U/L (14-59); Albumin Level 3.6 g/dL (3.4-5.0); Alkaline Phosphatase 53 U/L (46-116); Anion Gap 8 mmol/L (8-16); Aspartate Amino Transferase 13 U/L (15-37); Bilirubin,Total 0.3 mg/dL (0.00-1.00); Blood Urea Nitrogen 69 mg/dL (7-18); Calcium 9.3 mg/dL (8.5-10.1); Carbon Dioxide 27 mmol/L (21-32); Chloride 105 mmol/L (98-108); Cholesterol 144 mg/dL (0-200); Estimated Glomerular Filt Rate 26; Glucose 112 mg/dL (70-99); HDL Direct 44 mg/dL (40-60); LDL Cholesterol Calculated 75 mg/dL (<130); Osmolality Calculated 311 mOsm/kg (285-295); Potassium 4.2 mmol/L (3.5-5.1); Sodium 140 mmol/L (136-145); Thyroid Stimulating Hormone 0.44 uIU/mL (0.36-3.74); Total Protein 7.3 g/dL (6.4-8.2); Triglycerides 125 mg/dL (0-150)
== END 2022-04-09 07:50 | disposition home or self-care (01) ==
LOC: CHSLAB 07:51
PROVIDERS: PCP Internal Medicine; Visit Provider Internal Medicine Cardiovascular Disease
DX: E78.5 Hyperlipidemia, unspecified (principal); E11.65 Type 2 diabetes mellitus with hyperglycemia; D64.9 Anemia, unspecified; I25.10 Atherosclerotic heart disease of native coronary artery without angina pectoris
CPT/HCPCS: 36415; 80053; 80061; 82043; 83036; 84443; 85025

== ENCOUNTER 2022-05-01 14:52 | Outpatient (CLI) | payer MEDICARE, SELFPAY ==
[2022-05-01 15:43] LABS: Hemoglobin A1C 7.9 % (<5.7)
[2022-05-01 15:52] LABS: Alanine Aminotransferase 24 U/L (14-59); Albumin Level 3.8 g/dL (3.4-5.0); Alkaline Phosphatase 54 U/L (46-116); Anion Gap 9 mmol/L (8-16); Aspartate Amino Transferase 17 U/L (15-37); Bilirubin,Total 0.3 mg/dL (0.00-1.00); Blood Urea Nitrogen 54 mg/dL (7-18); Calcium 9.2 mg/dL (8.5-10.1); Carbon Dioxide 29 mmol/L (21-32); Chloride 104 mmol/L (98-108); Cholesterol 163 mg/dL (0-200); Estimated Glomerular Filt Rate 29; Glucose 200 mg/dL (70-99); HDL Direct 47 mg/dL (40-60); LDL Cholesterol Calculated 76 mg/dL (<130); Osmolality Calculated 314 mOsm/kg (285-295); Potassium 4.7 mmol/L (3.5-5.1); Sodium 142 mmol/L (136-145); Total Protein 7.2 g/dL (6.4-8.2); Triglycerides 202 mg/dL (0-150)
[2022-05-01 15:59] LABS: Creatinine Urine 16.37 mg/dL (40-278); MALB Creatinine Ratio 79.4 mg/g (0-30); Microalbumin Urine Random < 13.0 mg/L
== END 2022-05-01 14:53 | disposition home or self-care (01) ==
LOC: CHSLAB 14:55
PROVIDERS: PCP Internal Medicine; Visit Provider Nurse Practitioner
DX: E78.5 Hyperlipidemia, unspecified (principal); E11.65 Type 2 diabetes mellitus with hyperglycemia
CPT/HCPCS: 36415; 80053; 80061; 82043; 83036

== ENCOUNTER 2022-05-18 10:56 | Emergency (ER) | payer MEDICARE, MEDICAID, SELFPAY ==
--- NOTE | ~2022-05-18 | XR_ITS ---
EXAMINATION: XR chest 1V portable DATE: 05/18/2022 11:44 INDICATION: Retention, palpitations and shaky feeling. TECHNIQUE: frontal view of the chest was obtained. COMPARISON: Chest radiograph dated 12/01/2021 FINDINGS: The lungs remain clear with no focal airspace opacities, pulmonary edema, pleural effusion or pneumot horax. The cardiomediastinal silhouette is normal. Mild thoracic dextrocurvature with moderate spondy losis. IMPRESSION: 1. No acute cardiopulmonary disease. Reviewed, dictated and finalized at location A.
[2022-05-18 10:56] VITALS: BP 202/83; PULSE 66; RESP 20; TEMP 36.7; O2SAT 94
--- NOTE | 2022-05-18 11:05 | ED.GENADULT ---
HPI - General Adult General Chief complaint: Anxiety Stated complaint: SHAKY HEART ISSUES AND HIGH BLOOD PRESSURE Time Seen by Provider: 05/18/22 11:03 Source: patient Mode of arrival: ambulatory History of Present Illness HPI narrative: 76-year-old female presents to the ER with hypertension, diabetes mellitus, dyslipidemia, coronary artery status post OM1 stent, ischemic cardiomyopathy with CHF, pulmonary embolism, stage III, COPD, PVD with carotid stenosis, chronic low back pain presents to the ER with -- shakiness which started 3 hours ago -- elevated blood pressure at home. Blood pressure was noted to be 169/972. patient took her blood sugar which was noted to be greater than 200. Patient denied any chest pain or shortness of breath. No dyspnea on exertion or paroxysmal nocturnal dyspnea. -- Patient has nausea without any vomiting or diarrhea. -- Headache since yesterday patient is very anxious. She was started on Prozac a week ago. Onset (ago): day(s) ( started 1 day ago) Location: head Radiation: non-radiation Quality: aching Relieving factors: none Exacerbating factors: none Related Data Home Medications Medication Instructions Recorded Confirmed lisinopril 10 mg tablet 10 mg PO DAILY 12/28/21 05/18/22 dapagliflozin 10 mg tablet 10 tablet PO DAILY 03/20/22 05/18/22 (Farxiga) glimepiride 2 mg tablet 2 tablet PO BID 03/20/22 05/18/22 metoprolol succinate 50 mg 50 mg PO DAILY 03/20/22 05/18/22 tablet,extended release 24 hr sitagliptin 25 mg tablet (Januvia) 25 tablet PO DAILY 03/20/22 05/18/22 aspirin 81 mg tablet,delayed 325 mg PO QAM 05/18/22 05/18/22 release fluoxetine 20 mg capsule 20 mg PO DAILY 05/18/22 05/18/22 Allergies Allergy/AdvReac Type Severity Reaction Status Date / Time codeine Allergy Mild Hives Verified 03/30/22 09:08 tramadol Allergy Mild Unknown Verified 03/30/22 09:08 Review of Systems Review of Systems: All systems reviewed & are unremarkable except as noted in HPI and below Constitutional: Constitutional: Reports as per HPI, Reports no additional constitutional complaints and Reports weakness Eyes: Eyes: Reports as per HPI and Reports no additional eye complaints ENT: Reports system reviewed and no additional complaints, except as documented and Reports as per HPI Cardiovascular: Cardiovascular: Reports as per HPI, Reports no additional cardiovascular complaints and Reports rapid heart rate Respiratory: Respiratory: Reports as per HPI and Reports no additional respiratory complaints Gastrointestinal: Gastrointestinal: Reports as per HPI, Reports no additional gastrointestinal complaints and Reports nausea Genitourinary: Genitourinary: Reports no additional female genitourinary complaints Musculoskeletal: Musculoskeletal: Reports no additional musculoskeletal complaints and Reports as per HPI Integumentary/Breasts: Skin/Breast: Reports system reviewed and no additional complaints, except as docu and Reports as per HPI Neurologic: Reports system reviewed and no additional complaints, except as documented and Reports as per HPI Psychiatric: Psychiatric: Reports no additional psychiatric complaints, Reports as per HPI and Reports anxiety Endocrine: Endocrine: Reports no additional endocrine complaints and Reports as per HPI Hematologic/Lymphatic: Hematologic/Lymphatic: Reports no additional hematologic/lymphatic complaints and Reports as per HPI Allergic/Immunologic: Allergic/Immunologic: Reports no additional allergic/immunologic complaints and Reports as per HPI [facility] Past Medical History Medical History Abdominal pain, chronic, epigastric Acute upper respiratory infection CAD (coronary artery disease) Diagnosed in April 2015, OM stent Dr. Shay April 2015. Carotid stenosis Left ICA 75% stenosis Cataract Diabetes mellitus Diverticulosis of colon Diverticulosis of large intestine without perforation or abs
--- NOTE | 2022-05-18 11:29 | ECG_ITS ---
Measurements Intervals [place] Rate: 72 P: 28 UT: 158 QRS: 18 QRSD: 94 T: 70 QT: 386 QTc: 423 Interpretive Statements SINUS RHYTHM NONSPECIFIC T-WAVE ABNORMALITY COMPARED TO ECG 12/01/2021 16:32:21 NO SIGNIFICANT CHANGES Electronically Signed On 05-18-2022 12:10:10 CDT by Ignacio Henley M.D.
[2022-05-18 11:56] LABS: Basophils Absolute Auto 0.07 K/mm3 (0.00-0.10); Eosinophils Absolute Auto 0.19 K/mm3 (0.02-0.50); Eosinophils Percent Auto 2.7 % (1.0-6.0); Hematocrit 33.3 % (35.0-42.0); Hemoglobin 10.7 g/dL (11.7-13.8); Immature Granulocyte Absolute 0.03 K/mm3 (0.00-0.00); Immature Granulocyte Percent A 0.4 % (0.0-0.0); Lymphocytes Absolute Auto 1.53 K/mm3 (1.10-4.50); Lymphocytes Percent Auto 21.5 % (18.0-42.0); Mean Corpuscular HGB Conc 32.1 g/dL (32.0-36.0); Mean Corpuscular Hemoglobin 28.9 pg (27.0-31.0); Mean Platelet Volume 9.9 fl (9.2-11.8); Monocytes Absolute Auto 0.31 K/mm3 (0.10-0.90); Monocytes Percent Auto 4.4 % (2.0-11.0); Platelet Count Result 274 K/mm3 (150-420); Red Cell Distribution Width 13.2 % (11.6-14.4); White Blood Count 7.1 K/mm3 (4.8-10.8)
[2022-05-18] MEDS: ALPRAZolam (*CRX) 0.5 MG TABLET 0.25 MG PO (12:07)
[2022-05-18 12:08] LABS: Add Urine Microscopic? YES; Appearance Urine Clear (Clear); Bilirubin Urine Negative (Negative); Blood Urine Negative (Negative); Color Urine Light Yellow (Yellow); Glucose Urine UA 3+ (Negative); Ketones Urine Negative (Negative); Leukocyte Esterase Ur Negative (Negative); Nitrate Urine Negative (Negative); Protein Urine Negative (Negative); Urobilinogen Urine 0.2 mg/dL (0.2-1.0)
[2022-05-18 12:12] LABS: Bacteria Urine None seen /hpf; RBC Urine None seen /hpf (0-2); Squamous Epithelial Cell Urine Rare /hpf (Few); WBC Urine None seen /hpf (0-3)
[2022-05-18 12:15] LABS: Lactic Acid Reflex 0.4 mmol/L (0.4-2.0)
[2022-05-18 12:19] LABS: Alanine Aminotransferase 20 U/L (14-59); Albumin Level 3.4 g/dL (3.4-5.0); Alkaline Phosphatase 53 U/L (46-116); Anion Gap 8 mmol/L (8-16); Aspartate Amino Transferase 10 U/L (15-37); Bilirubin,Total 0.2 mg/dL (0.00-1.00); Blood Urea Nitrogen 46 mg/dL (7-18); Calcium 9.2 mg/dL (8.5-10.1); Carbon Dioxide 29 mmol/L (21-32); Chloride 101 mmol/L (98-108); Estimated CRCL calculation 28 ml/min; Estimated Glomerular Filt Rate 34; Glucose 204 mg/dL (70-99); NT Pro B Type Natriuretic Pept 404 pg/mL (0-125); Osmolality Calculated 303 mOsm/kg (285-295); Sodium 138 mmol/L (136-145); Total Protein 7.1 g/dL (6.4-8.2)
--- NOTE | 2022-05-18 12:28 | PC.NURSE ---
PT ABLE TO AMBULATE TO BATHROOM WITH MINIMAL STANDBY ASSIST.
[2022-05-18 12:39] LABS: Troponin I 18.4 ng/L (0.00-60.4)
[2022-05-18 12:40] LABS: Thyroid Stimulating Hormone 0.22 uIU/mL (0.36-3.74)
[2022-05-18 13:18] VITALS: BP 114/59; PULSE 72; RESP 20; TEMP 37; O2SAT 99
== END 2022-05-18 13:32 | disposition home or self-care (01) ==
PROVIDERS: Emergency Provider Internal Medicine Critical Care Medicine; PCP Internal Medicine
DX: F41.9 Anxiety disorder, unspecified (principal); N18.30 Chronic kidney disease, stage 3 unspecified; E11.65 Type 2 diabetes mellitus with hyperglycemia; D64.9 Anemia, unspecified; I25.10 Atherosclerotic heart disease of native coronary artery without angina pectoris; I12.9 Hypertensive chronic kidney disease with stage 1 through stage 4 chronic kidney disease, or unspecified chronic kidney disease
CPT/HCPCS: 36415; 71045; 80053; 81001; 83605; 83880; 84443; 84484; 85025; 93005; 99284; A9270

== ENCOUNTER 2022-06-08 11:02 | Outpatient (CLI) | payer MEDICARE, MEDICAID, SELFPAY ==
--- NOTE | ~2022-06-08 | XR_ITS ---
EXAMINATION: XR knee RT 3V DATE: 06/08/2022 11:21 INDICATION: Right knee pain. TECHNIQUE: 3 views of right knee were obtained. COMPARISON: None. FINDINGS: Bone alignment is normal. No fracture. There is mild tricompartmental osteoarthritis. No kn ee joint effusion. IMPRESSION: 1. Mild right knee osteoarthritis. Reviewed, dictated and finalized at location A.
== END 2022-06-08 11:03 | disposition home or self-care (01) ==
LOC: CHSIMG 11:05
PROVIDERS: PCP Internal Medicine; Visit Provider Internal Medicine
DX: M25.561 Pain in right knee (principal); M17.11 Unilateral primary osteoarthritis, right knee
CPT/HCPCS: 73562

== ENCOUNTER 2022-06-18 08:07 | Outpatient (RCR) | payer MEDICARE, MEDICAID, SELFPAY ==
--- NOTE | 2022-06-18 13:13 | PTOPEVAL1 ---
Assessment and note entered by Ignacio Camacho Evaluation Information Assessment Status Evaluation Diagnosis right knee pain Onset 05/18/22 Subjective Information Pt. reports about 4-5 weeks ago she twisted her knee while getting her boat off the trailer. She reports that all pain is located in the front of the right knee. She wears a knee brace that does ease her pain slighty. She reports that pain will wake her from her sleep at night. She reports that all movements increase her knee pain. She states that she is capable of completing all IADL's despite her knee pain. She states that she has 2 teenage granddaughters that live with her. Her goal for therapy is to decrease her knee pain. Reported Pain Level Pain Score 4: Self Report Assessment PT Clinical Summary Pt. is a 76 year old female who enters the clinic with right knee pain. She presents with impaired ROM, impaired strength, impaired gait, pain, and functional decline. Continued treatment is indicated in order to improve these areas to allow for improved comfort and efficiency with IADL performance. Plan of Care Interventions Electrical Stimulation,Gait Training,Hot Pack/Cold Pack,Manual Therapy,Neuro Re-education, Therapeutic Activities,Therapeutic Exercise PT Services Indicated Yes Treatment Frequency and 3x/week x 12 visits Duration These treatments will address the objective and functional deficits as defined above. The patient will be advanced safely and appropriately in order for the patient to progress towards his/her prior level of function. Additional exercises will be introduced and as well as a comprehensive home exercise program upon discharge, if needed, ?to ensure carryover of functional gains achieved in the clinic. This treatment plan has been reviewed and agreement upon by the patient.
== END 2022-07-16 23:59 | disposition home or self-care (01) ==
LOC: CHSPT 08:07
PROVIDERS: PCP Internal Medicine; Visit Provider Internal Medicine
DX: M25.561 Pain in right knee (principal)
CPT/HCPCS: 97014; 97110; 97161; G0283

== ENCOUNTER 2022-08-28 09:46 | Outpatient (CLI) | payer MEDICARE, MEDICAID, SELFPAY ==
--- NOTE | 2022-08-28 11:30 | NEURO_ITS ---
Impression: # Complains of numbness of hands. # Severe left Carpal Tunnel Syndrome. # Mild right Carpal Tunnel Syndrome with more involvement of sensory component. # No ulnar neuropathy. # Abnormal needle/EMG exam in left APB. Motor Nerve Conduction Upper Extremities Median Nerve Conduction Velocity (m/sec) Terminal Latency (msec) Response Voltage(mV) Elbow-Wrist Wrist Elbow Wrist Right 49 3.5 4 4 Left 48 10.0 2 2 Ulnar Nerve Conduction Velocity (m/sec) Terminal Latency (msec) Response Voltage(mV) Above Elbow Below Elbow Wrist Above Elbow Below Elbow Wrist Right 52 2.3 4 6 Left 50 2.3 54 7 F-Wave Latency Median (ms) Ulnar (ms) Right 29.5 28.8 Left 31.8 30.3 Sensory Nerve Conduction Upper Extremities Median Nerve Stimulation Terminal Latency (msec) Wrist/Digit Response Voltage (uV) Wrist Right NR/NR NR/NR Left NR/NR NR/NR Ulnar Nerve Stimulation Terminal Latency (msec) Wrist/Digit Response Voltage (uV) Wrist Right 2.8 57 Left 2.9 34 Radial Nerve Terminal Latency (msec) Response Voltage(mV) Right 2.2 17 Left 2.0 36 Left Right Muscles Examined Fibrillation Fasciculation Scarcity Voltage Duration Left Right Left Right Left Right Left Right Left Right Deltoid Biceps X X Brachioradialis Triceps X X Pronator Teres X X Ext Indicis X X Ext Digitorum X X Abd Poll Brev Incr >12ms X X 1st Dorsal Interosseus X X Abd Dig Min MTDD
== END 2022-08-28 09:47 | disposition home or self-care (01) ==
LOC: ANHNEURO 09:47
PROVIDERS: PCP Internal Medicine; Visit Provider Internal Medicine
DX: R20.0 Anesthesia of skin (principal); G56.03 Carpal tunnel syndrome, bilateral upper limbs; R94.131 Abnormal electromyogram [EMG]
CPT/HCPCS: 95886; 95911

== ENCOUNTER 2022-09-07 08:10 | Outpatient (CLI) | payer MEDICARE, MEDICAID, SELFPAY ==
[2022-09-07 08:38] LABS: Creatinine Urine 77.83 mg/dL (40-278); Microalbumin Urine Random 37.4 mg/L
[2022-09-07 08:40] LABS: Hemoglobin A1C 8.5 % (<5.7)
[2022-09-07 09:05] LABS: Alanine Aminotransferase 29 U/L (14-59); Albumin Level 3.7 g/dL (3.4-5.0); Alkaline Phosphatase 55 U/L (46-116); Anion Gap 6 mmol/L (8-16); Aspartate Amino Transferase 18 U/L (15-37); Bilirubin,Total 0.4 mg/dL (0.00-1.00); Blood Urea Nitrogen 47 mg/dL (7-18); Calcium 8.8 mg/dL (8.5-10.1); Carbon Dioxide 33 mmol/L (21-32); Chloride 106 mmol/L (98-108); Cholesterol 152 mg/dL (0-200); Estimated Glomerular Filt Rate 25; Glucose 80 mg/dL (70-99); HDL Direct 53 mg/dL (40-60); LDL Cholesterol Calculated 76 mg/dL (<130); Osmolality Calculated 311 mOsm/kg (285-295); Potassium 4.8 mmol/L (3.5-5.1); Sodium 145 mmol/L (136-145); Total Protein 6.7 g/dL (6.4-8.2); Triglycerides 115 mg/dL (0-150)
[2022-09-11 20:28] LABS: Homocysteine 14.5 umol/L (<10.4)
== END 2022-09-07 08:11 | disposition home or self-care (01) ==
LOC: CHSLAB 08:12
PROVIDERS: PCP Internal Medicine; Visit Provider Internal Medicine Hematology & Oncology
DX: E78.5 Hyperlipidemia, unspecified (principal); E11.65 Type 2 diabetes mellitus with hyperglycemia; D68.69 Other thrombophilia
CPT/HCPCS: 36415; 80053; 80061; 82043; 83036; 83090

== ENCOUNTER 2022-11-14 09:14 | Outpatient (CLI) | payer MEDICARE, MEDICAID, SELFPAY ==
[2022-11-14 09:22] LABS: Basophils Absolute Auto 0.11 K/mm3 (0.00-0.10); Basophils Percent Auto 1.3 % (0.0-1.0); Eosinophils Percent Auto 4.8 % (1.0-6.0); Hematocrit 39.5 % (35.0-42.0); Hemoglobin 12.4 g/dL (11.7-13.8); Immature Granulocyte Absolute 0.04 K/mm3 (0.00-0.00); Immature Granulocyte Percent A 0.5 % (0.0-0.0); Lymphocytes Absolute Auto 2.44 K/mm3 (1.10-4.50); Mean Corpuscular HGB Conc 31.4 g/dL (32.0-36.0); Mean Corpuscular Hemoglobin 28.6 pg (27.0-31.0); Mean Corpuscular Volume 91.2 fL (78.0-102.0); Monocytes Absolute Auto 0.46 K/mm3 (0.10-0.90); Monocytes Percent Auto 5.5 % (2.0-11.0); Neutrophils Percent Auto 58.9 % (50.0-70.0); Platelet Count Result 275 K/mm3 (150-420); Red Blood Count 4.33 M/mm3 (4.20-5.40); Red Cell Distribution Width 13.3 % (11.6-14.4); White Blood Count 8.4 K/mm3 (4.8-10.8)
[2022-11-14 10:03] LABS: Alanine Aminotransferase 25 U/L (14-59); Albumin Level 3.8 g/dL (3.4-5.0); Alkaline Phosphatase 46 U/L (46-116); Anion Gap 4 mmol/L (8-16); Aspartate Amino Transferase 17 U/L (15-37); Bilirubin,Total 0.3 mg/dL (0.00-1.00); Blood Urea Nitrogen 65 mg/dL (7-18); Calcium 9.5 mg/dL (8.5-10.1); Carbon Dioxide 32 mmol/L (21-32); Chloride 100 mmol/L (98-108); Estimated Glomerular Filt Rate 21; Glucose 135 mg/dL (70-99); Osmolality Calculated 302 mOsm/kg (285-295); Potassium 5.6 mmol/L (3.5-5.1); Sodium 136 mmol/L (136-145); Total Protein 6.8 g/dL (6.4-8.2)
== END 2022-11-14 09:15 | disposition home or self-care (01) ==
PROVIDERS: PCP Internal Medicine; Visit Provider Internal Medicine
DX: E11.9 Type 2 diabetes mellitus without complications (principal); I10 Essential (primary) hypertension; E87.5 Hyperkalemia
CPT/HCPCS: 36415; 80053; 85025

== ENCOUNTER 2022-11-16 11:31 | Emergency (ER) | payer MEDICARE, MEDICAID, SELFPAY ==
--- NOTE | ~2022-11-16 | CT_ITS ---
EXAMINATION: CT thoracic spine wo con DATE: 11/16/2022 12:19 INDICATION: Back pain. Fall. TECHNIQUE: Computed tomography (CT) of the thoracic spine was performed without intravenous contrast. Automated exposure control and iterative reconstruction technique were employed. The dose-length pro duct was 1146.61 mGy-cm. COMPARISON: Chest CT 08/23/2021 FINDINGS: There are masses in the adrenal glands measuring up to 13 mm on the left measuring low-atte nuation, consistent with adenomas. There is 8 degrees dextrocurvature of thoracic spine and 8 degrees levocurvature of cervicothoracic spine. There is severely decreased disc height from C5-C6 through C 7-T1, moderately decreased disc height at T1-T2, severely decreased disc height at T2-T3 and T3-T4 an d from T6-T7 through T8-T9, mildly decreased disc height at T9-T10, and moderately decreased disc hei ght at T10-T11 with endplate remodeling. There are bridging endplate osteophytes from T4 to T6. The d iscs are bulging at most levels with mild central canal stenosis. There is multilevel facet joint ost eoarthritis, severe at many levels. There is multilevel mild neural foraminal stenosis bilaterally. O n the right, there is moderate neural foraminal stenosis at T5-T6. On the left, there is moderate garett ral foraminal stenosis at T1-T2, T6-T7, and T8-T9. IMPRESSION: 1. No fracture. 2. Severe thoracic spondylosis. Reviewed, dictated and finalized at location A. BURSEMENT COORDINATOR
--- NOTE | ~2022-11-16 | CT_ITS ---
EXAMINATION: CT lumbar spine wo con DATE: 11/16/2022 12:19 INDICATION: Back pain. Fall. TECHNIQUE: Computed tomography (CT) of the lumbar spine was performed without intravenous contrast. A utomated exposure control and iterative reconstruction technique were employed. The dose-length produ ct was 1062.84 mGy-cm. COMPARISON: CT abdomen and pelvis 11/24/2021 FINDINGS: There is 14 degrees levoscoliosis of thoracolumbar spine. Vertebral body heights are normal . There is mildly decreased disc height at L1-L2, severely decreased disc height at L2-L3, moderately decreased disc height at L3-L4, and severely decreased disc height at L4-L5 and L5-S1. The following disc levels are specifically discussed: L1-L2: The disc is bulging. There is mild bilateral facet joint osteoarthritis. There is mild bilater al neural foraminal stenosis. There is mild central canal stenosis. L2-L3: The disc is bulging. There is mild bilateral facet joint osteoarthritis. There is mild bilater al neural foraminal stenosis. There is mild central canal stenosis. L3-L4: The disc is bulging. There is moderate right and severe left facet joint osteoarthritis. There is moderate right and mild left neural foraminal stenosis. There is moderate central canal stenosis. L4-L5: The disc is bulging. There is severe bilateral facet joint osteoarthritis. There is mild right and moderate left neural foraminal stenosis. There is mild central canal stenosis. L5-S1: The disc is bulging. There is severe bilateral facet joint osteoarthritis. There is moderate b ilateral neural foraminal stenosis. There is mild central canal stenosis. IMPRESSION: 1. No fracture. 2. Severe lumbar spondylosis. 3. Thoracolumbar levoscoliosis. Reviewed, dictated and finalized at location A. INJECTOR AND APPLICATOR
[2022-11-16 11:32] VITALS: BP 144/55; PULSE 66; RESP 16; TEMP 37.1; O2SAT 98
--- NOTE | 2022-11-16 11:43 | ED.BACK ---
HPI - Back Pain/Injury General Chief Complaint: Back Pain/Injury Stated Complaint: Fall Time Seen by Provider: 11/16/22 11:43 History of Present Illness HPI Narrative: 76-year-old female patient presents to ER with complaints of pain in the back after she had a ground level fall at home. States that she was doing her dishes and dropped something to the floor and as she bent down to pick the stuff up she lost her balance and landed on her buttocks and then onto the side. Denies hitting her head. States that she has had pain from mid upper back to the lower back area since then. She was able to ambulate after the fall and did drive herself to the ER. She denies any loss of bowel or bladder function. She does state that she has neuropathy in legs and has constant numbness and tingling. Denies any other injuries at this time. Related Data Home Medications Medication Instructions Recorded Confirmed lisinopril 10 mg tablet 10 mg PO DAILY 12/28/21 07/09/22 dapagliflozin 10 mg tablet 10 tablet PO DAILY 03/20/22 07/09/22 (Farxiga) glimepiride 2 mg tablet 2 tablet PO BID 03/20/22 07/09/22 metoprolol succinate 50 mg 50 mg PO DAILY 03/20/22 07/09/22 tablet,extended release 24 hr sitagliptin phosphate 25 mg tablet 25 tablet PO DAILY 03/20/22 07/09/22 (Januvia) aspirin 81 mg tablet,delayed 325 mg PO QAM 05/18/22 07/09/22 release fluoxetine 20 mg capsule 20 mg PO DAILY 05/18/22 07/09/22 alprazolam 0.25 mg tablet 0.25 mg PO DAILY 07/09/22 07/09/22 duloxetine 20 mg capsule,delayed 20 mg PO BID 07/09/22 07/09/22 release folic acid 800 mcg tablet 0.8 mg PO DAILY 07/09/22 07/09/22 omega 2-foa-qkv-fish oil 100 cap PO 07/09/22 07/09/22 mg-160 mg-1,000 mg capsule (Fish Oil) Allergies Allergy/AdvReac Type Severity Reaction Status Date / Time codeine Allergy Mild Hives Verified 07/09/22 14:25 tramadol Allergy Mild Unknown Verified 07/09/22 14:25 Review of Systems Review of Systems: All systems reviewed & are unremarkable except as noted in HPI and below Eyes: Eyes: Reports no additional eye complaints ENT: Reports system reviewed and no additional complaints, except as documented Cardiovascular: Cardiovascular: Reports no additional cardiovascular complaints Respiratory: Respiratory: Reports no additional respiratory complaints Gastrointestinal: Gastrointestinal: Reports no additional gastrointestinal complaints Genitourinary: Genitourinary: Reports no additional female genitourinary complaints Musculoskeletal: Musculoskeletal: Reports no additional musculoskeletal complaints Integumentary/Breasts: Skin/Breast: Reports system reviewed and no additional complaints, except as docu Neurologic: Reports system reviewed and no additional complaints, except as documented Psychiatric: Psychiatric: Reports no additional psychiatric complaints Endocrine: Endocrine: Reports no additional endocrine complaints Hematologic/Lymphatic: Hematologic/Lymphatic: Reports no additional hematologic/lymphatic complaints Allergic/Immunologic: Allergic/Immunologic: Reports no additional allergic/immunologic complaints PMFSH Past Medical History Medical History Abdominal pain, chronic, epigastric Acute upper respiratory infection CAD (coronary artery disease) Diagnosed in April 2015, OM stent Dr. Shay April 2015. Carotid stenosis Left ICA 75% stenosis Cataract Diabetes mellitus Diverticulosis of colon Diverticulosis of large intestine without perforation or abscess without bleeding HTN (hypertension) Hyperlipidemia Ischemic cardiomyopathy Echo 2015 showed dilated LV EF 40%. Paradoxical septal motion from conduction abnormality + anteroseptal akinesis. Diastolic dysfunction. Labile hypertension Low back pain Lumbosacral radiculopathy at L5 Medical non-compliance Melena Normocytic anemia Pancreatic cyst Sinus tachycardia Stage 3 chronic kidney disease Type II diab
[2022-11-16 13:22] VITALS: BP 116/53; PULSE 84; RESP 16; TEMP 36.6; O2SAT 99
== END 2022-11-16 13:41 | disposition home or self-care (01) ==
PROVIDERS: Emergency Provider Emergency Medicine; PCP Internal Medicine
DX: M51.36 Other intervertebral disc degeneration, lumbar region (principal); S39.012A Strain of muscle, fascia and tendon of lower back, initial encounter; I25.10 Atherosclerotic heart disease of native coronary artery without angina pectoris; E78.5 Hyperlipidemia, unspecified; I12.9 Hypertensive chronic kidney disease with stage 1 through stage 4 chronic kidney disease, or unspecified chronic kidney disease; E11.22 Type 2 diabetes mellitus with diabetic chronic kidney disease; N18.30 Chronic kidney disease, stage 3 unspecified; Z87.891 Personal history of nicotine dependence; W18.39XA Other fall on same level, initial encounter; Y92.009 Unspecified place in unspecified non-institutional (private) residence as the place of occurrence of the external cause
CPT/HCPCS: 72128; 72131; 99284

== ENCOUNTER 2022-11-22 11:51 | Outpatient (CLI) | payer MEDICARE, MEDICAID, SELFPAY ==
[2022-11-22 12:30] LABS: Alanine Aminotransferase 29 U/L (14-59); Albumin Level 3.6 g/dL (3.4-5.0); Alkaline Phosphatase 56 U/L (46-116); Anion Gap 6 mmol/L (8-16); Aspartate Amino Transferase 18 U/L (15-37); Bilirubin,Total 0.3 mg/dL (0.00-1.00); Blood Urea Nitrogen 52 mg/dL (7-18); Calcium 8.8 mg/dL (8.5-10.1); Carbon Dioxide 32 mmol/L (21-32); Chloride 101 mmol/L (98-108); Estimated Glomerular Filt Rate 28; Glucose 202 mg/dL (70-99); Osmolality Calculated 308 mOsm/kg (285-295); Potassium 4.4 mmol/L (3.5-5.1); Sodium 139 mmol/L (136-145); Total Protein 6.8 g/dL (6.4-8.2)
== END 2022-11-22 11:52 | disposition home or self-care (01) ==
LOC: CHSLAB 11:53
PROVIDERS: PCP Internal Medicine; Visit Provider Internal Medicine
DX: E87.5 Hyperkalemia (principal); N18.30 Chronic kidney disease, stage 3 unspecified
CPT/HCPCS: 36415; 80053

== ENCOUNTER 2023-01-22 09:28 | Outpatient (CLI) | payer MEDICARE, MEDICAID, SELFPAY ==
[2023-01-22 10:42] LABS: Folic Acid > 20.0 ng/mL (8.6->20); Vitamin B12 1969 pg/mL (193-986)
[2023-01-25 16:26] LABS: Homocysteine 10.4 umol/L (<10.4)
== END 2023-01-22 09:29 | disposition home or self-care (01) ==
LOC: CHSLAB 09:30
PROVIDERS: PCP Internal Medicine; Visit Provider Internal Medicine Hematology & Oncology
DX: D68.69 Other thrombophilia (principal)
CPT/HCPCS: 36415; 82607; 82746; 83090

== ENCOUNTER 2023-01-30 10:33 | Outpatient (CLI) | payer MEDICARE, MEDICAID, SELFPAY ==
--- NOTE | ~2023-01-30 | US_ITS ---
EXAMINATION: US carotid duplex BI DATE: 01/30/2023 11:02 INDICATION: Carotid stenosis TECHNIQUE: Grayscale, color Doppler, and pulsed Doppler images of the cervical carotid arteries were obtained. The degree of vessel stenosis is placed in one of the following categories: normal, <50%, 5 0-69%, >=70% but less than near-occlusion, near-occlusion, or total occlusion. Note that percent sten osis relative to normal distal artery lumen diameter is indirectly measured from velocity measurement s as described by Yan, et al. Radiology 2003; 229:340-346. COMPARISON: 11/03/2019 FINDINGS: RIGHT: The right common carotid artery (CCA) peak systolic velocity (PSV) is 64 cm/s. The right internal car otid artery (ICA) PSV is 117 cm/s. The right ICA end-diastolic velocity (EDV) is 32 cm/s. The right I CA/CCA PSV ratio is 1.8. Grayscale and color Doppler images yield an estimate of <50% diameter reduct ion from plaque in the ICA. The external carotid artery (ECA) PSV is 65 cm/s. There is antegrade flow in the right vertebral artery. LEFT: The left CCA PSV is 43 cm/s. The left ICA PSV is 283 cm/s. The left ICA EDV is 61 cm/s. The left ICA/ CCA PSV ratio is 6.5. Grayscale and color Doppler images yield an estimate of >=70% (but less than ne ar occlusion) diameter reduction from plaque in the ICA. The ECA PSV is 324 cm/s. There is antegrade flow in the left vertebral artery. IMPRESSION: 1. <50% stenosis in the right internal carotid artery. 2. >=70% (but less than near occlusion) stenosis in the left internal carotid artery. Reviewed, dictated and finalized at location B. IMPRESSION: 1. <50% stenosis in the right internal carotid artery. 2. >=70% (but less than near occlusion) stenosis in the left internal carotid a rtery.
== END 2023-01-30 10:34 | disposition home or self-care (01) ==
LOC: CHSIMG 10:34
PROVIDERS: PCP Internal Medicine; Visit Provider Internal Medicine Cardiovascular Disease
DX: I65.23 Occlusion and stenosis of bilateral carotid arteries (principal)
CPT/HCPCS: 93880

== ENCOUNTER 2023-03-14 12:40 | Outpatient (CLI) | payer MEDICARE, SELFPAY ==
[2023-03-14 13:18] LABS: Basophils Absolute Auto 0.07 K/mm3 (0.00-0.10); Eosinophils Absolute Auto 0.25 K/mm3 (0.02-0.50); Eosinophils Percent Auto 3.4 % (1.0-6.0); Hematocrit 41.4 % (35.0-42.0); Hemoglobin 12.9 g/dL (11.7-13.8); Immature Granulocyte Absolute 0.03 K/mm3 (0.00-0.00); Immature Granulocyte Percent A 0.4 % (0.0-0.0); Lymphocytes Absolute Auto 2.08 K/mm3 (1.10-4.50); Lymphocytes Percent Auto 28.7 % (18.0-42.0); Mean Corpuscular HGB Conc 31.2 g/dL (32.0-36.0); Mean Corpuscular Hemoglobin 27.8 pg (27.0-31.0); Mean Corpuscular Volume 89.2 fL (78.0-102.0); Mean Platelet Volume 10.3 fl (9.2-11.8); Monocytes Absolute Auto 0.43 K/mm3 (0.10-0.90); Monocytes Percent Auto 5.9 % (2.0-11.0); Neutrophils Absolute Auto 4.4 K/mm3 (1.7-7.2); Neutrophils Percent Auto 60.6 % (50.0-70.0); Platelet Count Result 237 K/mm3 (150-420); Red Blood Count 4.64 M/mm3 (4.20-5.40); Red Cell Distribution Width 13.9 % (11.6-14.4); White Blood Count 7.3 K/mm3 (4.8-10.8)
[2023-03-14 14:02] LABS: Alanine Aminotransferase 24 U/L (14-59); Albumin Level 3.8 g/dL (3.4-5.0); Alkaline Phosphatase 56 U/L (46-116); Anion Gap 10 mmol/L (8-16); Aspartate Amino Transferase 13 U/L (15-37); Bilirubin,Total 0.4 mg/dL (0.00-1.00); Blood Urea Nitrogen 41 mg/dL (7-18); Calcium 9.3 mg/dL (8.5-10.1); Carbon Dioxide 31 mmol/L (21-32); Chloride 100 mmol/L (98-108); Estimated Glomerular Filt Rate 29; Glucose 150 mg/dL (70-99); Osmolality Calculated 305 mOsm/kg (285-295); Potassium 5.2 mmol/L (3.5-5.1); Sodium 141 mmol/L (136-145)
== END 2023-03-14 12:41 | disposition home or self-care (01) ==
LOC: CHSLAB 12:43
PROVIDERS: PCP Internal Medicine; Visit Provider Internal Medicine
DX: N18.30 Chronic kidney disease, stage 3 unspecified (principal); D64.9 Anemia, unspecified
CPT/HCPCS: 36415; 80053; 85025

== ENCOUNTER 2023-03-25 11:28 | Outpatient (CLI) | payer MEDICARE, SELFPAY ==
--- NOTE | 2023-03-25 11:31 | EST_ITS ---
Patient Info Name: Tran Bryan Age: 77 years : 1945 Gender: Female Ht: 60 in Wt: 158 lbs BSA: 1.77 m2 Exam Date: 03/25/2023 12:56 PM Exam Location: [employer] [facility] Patient Status: Outpatient Admit Date: 03/25/2023 Staff Ordering Physician: Brian Carson DO Attending Provider: Brian Carson DO Exam Type: CA stress beverly w NM Summary 1. 1. Inconclusive lexiscan stress test for ischemic ST changes by ECG criteria due to baseline LBBB. 2. 2. Baseline hypertension. 3. 3. Nuclear scan to follow and will be reported separately. Please correlate with it. 4. 4. Patient informed of the above results. Protocol: LEXISCAN Stress ECG Details Stage: REST Duration (min): 2 min : 3 sec HR (bpm): 62 SBP (mmHg): 153 DBP (mmHg): 72 Stage: REST Duration (min): 13 min : 22 sec HR (bpm): 68 SBP (mmHg): 153 DBP (mmHg): 72 Stage: STAGE 1 Duration (min): 0 min : 17 sec HR (bpm): 69 SBP (mmHg): 153 DBP (mmHg): 72 Stage: RECOVERY Duration (min): 0 min : 42 sec HR (bpm): 82 SBP (mmHg): 153 DBP (mmHg): 72 Stage: RECOVERY Duration (min): 1 min : 42 sec HR (bpm): 86 SBP (mmHg): 153 DBP (mmHg): 72 Stage: RECOVERY Duration (min): 2 min : 42 sec HR (bpm): 81 SBP (mmHg): 157 DBP (mmHg): 72 Stage: RECOVERY Duration (min): 3 min : 42 sec HR (bpm): 85 SBP (mmHg): 148 DBP (mmHg): 70 Stage: RECOVERY Duration (min): 4 min : 42 sec HR (bpm): 80 SBP (mmHg): 148 DBP (mmHg): 70 Stage: RECOVERY Duration (min): 5 min : 42 sec HR (bpm): 78 SBP (mmHg): 155 DBP (mmHg): 69 Stage: RECOVERY Duration (min): 6 min : 2 sec HR (bpm): 78 SBP (mmHg): 155 DBP (mmHg): 69 Rest HR: 68 bpm Peak HR: 87 bpm Rest Sys BP: 153 mmHg Peak Sys BP: 157 mmHg Max Pred HR: 145 bpm % Max Pred HR: 60 % Target HR: 123 bpm Max RPP: 13,659 bpm*mmHg Termination Reason: Completed protocol Cardiac Symptoms: Shortness of breath Total Time: 0 min : 17 sec Rest Jain BP: 72 mmHg Peak Jain BP: 72 mmHg Total Dose: 0.4 mg Resting ECG Sinus rhythm, LBBB. Stress ECG No ST changes. Arrhythmias None. Report Signatures
--- NOTE | 2023-03-25 17:09 | WPDCARIOSTRE ---
Nuclear Stress Test INDICATIONS Indications: Dyspnea PROCEDURE Procedure Performed: Myocardial Perf Spect-Multi Procedure: Patient underwent a lexiscan stress test and immediately was injected with 33.2 mCi of cardiolyte. Multiple tomographic images were obtained. These are of good quality. There is a moderate size, severe anterior perfusion defect with stress imaging. A separate rest images were obtained after patient was injected with 10.5 mCi of cardiolyte. Multiple tomographic images were obtained. These are of good quality. There is no evidence of decreased perfusion with rest imaging. CONCLUSION Conclusion: 1. Abnormal myocardial perfusion imaging demonstrating moderate size, severe anterior perfusion defect suggestive of reversible ischemia. 2. Left ventriculogram demonstrates mildly decreased measured ejection fraction of 43% with apical septum hypokinesis. 3. TID 1.26 is elevated which cannot r/o triple vessel or left main disease.
== END 2023-03-25 11:29 | disposition home or self-care (01) ==
LOC: CHSCARD 11:31
PROVIDERS: PCP Internal Medicine; Visit Provider Internal Medicine Cardiovascular Disease
DX: R06.09 Other forms of dyspnea (principal); R94.39 Abnormal result of other cardiovascular function study; R94.31 Abnormal electrocardiogram [ECG] [EKG]
CPT/HCPCS: 78452; 93017; A9502; J2785

== ENCOUNTER 2023-04-18 03:56 | Day surgery (SDC) | payer MEDICARE, SELFPAY ==
[2023-04-18] VITALS (8 sets, daily range): BP systolic 124–151; BP diastolic 55–86; PULSE 53–67; RESP 14–16; TEMP 36.2; O2SAT 95–99; BMI 30.5
[2023-04-18 09:01] LABS: Basophils Absolute Auto 0.1 K/mm3 (0.0-0.1); Basophils Percent Auto 1.3 % (0.2-1.2); Eosinophils Absolute Auto 0.4 K/mm3 (0-0.3); Eosinophils Percent Auto 4.3 % (0-4.4); Hematocrit 41.6 % (37.0-47.0); Hemoglobin 12.7 g/dL (12.0-15.0); Immature Granulocyte Absolute 0.03 K/mm3 (0.00-0.031); Immature Granulocyte Percent A 0.4 % (0-0.5); Lymphocytes Absolute Auto 2.39 K/mm3 (0.9-3.2); Lymphocytes Percent Auto 29.3 % (18.3-44.2); Mean Corpuscular HGB Conc 30.5 g/dl (32-36); Mean Corpuscular Hemoglobin 27.3 pg (26-34); Mean Corpuscular Volume 89.5 fl (80-100); Mean Platelet Volume 10.8 fl (7.4-10.4); Monocytes Absolute Auto 0.6 K/mm3 (0.1-0.6); Monocytes Percent Auto 7.2 % (2.6-8.5); Neutrophils Absolute Auto 4.7 K/mm3 (1.3-6.7); Neutrophils Percent Auto 57.5 % (45.5-73.1); Platelet Count Result 247 k/mm3 (150-375); Red Blood Count 4.65 M/mm3 (4.2-5.4); Red Cell Distribution Width 14.4 % (11.5-14.5); White Blood Count 8.2 K/mm3 (4.5-10.0)
[2023-04-18 09:34] LABS: Anion Gap 5 mmol/L (8-16); Blood Urea Nitrogen 49 mg/dL (7-17); Calcium 9.1 mg/dL (8.4-10.2); Carbon Dioxide 30 mmol/L (22-30); Chloride 102 mmol/L (98-107); Estimated CRCL calculation 23 ml/min; Estimated Glomerular Filt Rate 29; Glucose 148 mg/dL (65-110); Potassium 5.2 mmol/L (3.4-5.0); Sodium 137 mmol/L (137-145)
--- NOTE | 2023-04-18 10:45 | WPDHPUPDATE1 ---
History and Physical Update Update Date/Time: 04/18/23 10:45 History and Physical has been reviewed, including an updated exam of the patient. There are NO changes in the patient's condition. Risks, benefits, and alternatives have been discussed and questions answered. Patient agrees to proceed with procedure.
--- NOTE | 2023-04-18 10:45 | WPDMODSED ---
Moderate Sedation Note-Pt Data Patient Data Diagnosis: Abnormal stress test Present Complaint: Abnormal stress test Procedure to be performed/Plan: Coronary angiography, left heart catheterization, +/- percutaneous coronary intervention Allergies Allergy/AdvReac Type Severity Reaction Status Date / Time codeine Allergy Mild Hives Verified 04/18/23 08:44 tramadol AdvReac Mild Agitated Verified 04/18/23 08:44 Home Medications Medication Instructions Recorded Confirmed Type furosemide 40 mg tablet See Rx Instructions .Route 11/08/21 04/17/23 Rx .COMPLEX #90 tabs dapagliflozin propanediol 10 mg 10 tablet PO DAILY 03/20/22 04/17/23 History tablet (Farxiga) glimepiride 2 mg tablet 2 tablet PO BID 03/20/22 04/17/23 History metoprolol succinate 50 mg 50 mg PO DAILY 03/20/22 04/17/23 History tablet,extended release 24 hr sitagliptin phosphate 25 mg tablet 25 tablet PO DAILY 03/20/22 04/17/23 History (Januvia) aspirin 81 mg tablet,delayed 325 mg PO QAM 05/18/22 04/17/23 History release alprazolam 0.25 mg tablet 0.25 mg PO DAILY 07/09/22 04/17/23 History duloxetine 20 mg capsule,delayed 20 mg PO BID 07/09/22 04/17/23 History release folic acid 800 mcg tablet 0.8 mg PO DAILY 07/09/22 04/17/23 History omega 7-gce-fqh-fish oil 100 1 cap PO DAILY 07/09/22 04/17/23 History mg-160 mg-1,000 mg capsule (Fish Oil) rosuvastatin 20 mg tablet See Rx Instructions .Route 11/21/22 04/17/23 Rx .COMPLEX #90 tabs cholecalciferol (vitamin D3) 25 25 mcg PO DAILY 04/17/23 04/17/23 History mcg (1,000 unit) capsule (Vitamin D3) insulin degludec 100 unit/mL (3 16 unit subcut PRN PRN 04/17/23 04/17/23 History mL) subcutaneous pen (Tresiba Hyperglycemia FlexTouch U-100 insulin) vitamin B complex (B 1 tablet PO EVERY OTHER DAY 04/17/23 04/17/23 History Complex-Vitamin B12 tablet) Current Medications: Active Medications Sodium Chloride (Normal Saline Iv) 500 mls @ 100 mls/hr IV CONT .Q5H NELY Sedation/Anesthesia: No previous sedation/anesthesia problems (including family history). [facility] Past Medical History Medical History Abdominal pain, chronic, epigastric Acute upper respiratory infection CAD (coronary artery disease) Diagnosed in April 2015, OM stent Dr. Shay April 2015. Carotid stenosis Left ICA 75% stenosis Cataract Diabetes mellitus Diverticulosis of colon Diverticulosis of large intestine without perforation or abscess without bleeding HTN (hypertension) Hyperlipidemia Ischemic cardiomyopathy Echo 2015 showed dilated LV EF 40%. Paradoxical septal motion from conduction abnormality + anteroseptal akinesis. Diastolic dysfunction. Labile hypertension Low back pain Lumbosacral radiculopathy at L5 Medical non-compliance Melena Normocytic anemia Pancreatic cyst Sinus tachycardia Stage 3 chronic kidney disease Type II diabetes mellitus Uncontrolled type II diabetes mellitus Surgical History Surgical History Cataract extraction status Bilaterally H/O heart artery stent April 2014 H/O: hysterectomy Family History Family History Mother Hypertension Sibling Thyroid cancer Hypertension Sibling Hypertension Sibling Hypertension Sibling Alzheimers disease Social History Social History Social History: BOBBI is her son Louis. The patient had 4 children and 1 of her sons at the age of 19. She raised 1 of her granddaughters and is now raising a great grandson that is 12 years old. She also has a disabled son in his 50s who is living with her. She is and retired from [employer]. Lifelong nonsmoker. She is also taking her elderly mother who is in her 90s. Her mother does not live with her. Smoking status: Never smoker Tobacco type: ci
--- NOTE | 2023-04-18 10:47 | WPDCARDPROC ---
Cardiac Cath Procedure Note Date of procedure:: 04/18/23 Performing physician:: CATHETERIZATION LABORATORY REPORT Procedure Date: 04/18/2023 Rfid Analyst: Dusty Neff M.D., [facility]? Referring Physician: Brian Carson M.D. ? Anesthesia: Versed and Fentanyl were ordered and given in my presence at 10:11, procedure ended at 10:41. Supervision of nurse monitored moderate sedation with Versed and Fentanyl was provided for 30 minutes. Total of Versed 2mg and Fentanyl 50mcg were administered by the Dinkey Skinner RN Leila Burkett. Pre-op Diagnosis: Coronary artery disease Post-op Diagnosis: 1. Moderate disease of the mid LAD. The mid LAD has diffuse calcific disease with a stenosis of up to 60-70% 2. Patent OM stent 3. Left ventricular end-diastolic pressure of 22mmHg Procedure(s): 1. Moderate sedation 2. Ultrasound-guided access of the right radial artery 3. Coronary angiography 4. Left heart cath Access Site: Right radial artery Brief History and Clinical Indications: Patient is a 77-year-old female with coronary artery disease s/p prior PCI, carotid artery stenosis, hypertension, hyperlipidemia, diabetes, COPD, history of pulmonary embolism who is referred for [facility] for abnormal stress test. All risks, benefits and alternatives to left heart catheterization with or without percutaneous coronary intervention was discussed at length with the patient. Risk of complications including but not limited to bleeding, infection, arrhythmia, stroke, worsening kidney function, blood loss, groin hematoma, limb loss, emergency coronary artery bypass grafting, and even were discussed with the patient and all questions were answered. The patient understood and wished to proceed. Time out called, patient name, date of , medical record number, allergies, procedure performed, identify Rfid Analyst, patient and staff member concurred with accurate data, procedure carried on. Findings: LEFT HEART CATHETERIZATION FINDINGS: 1. Left main: The left main coronary artery is widely patent without any significant obstructive disease. 2. Left anterior descending: The proximal to mid LAD is calcific. The mid LAD has diffuse calcific disease with a stenosis of up to 60-70%. Remainder of the LAD has mild diffuse disease. 3. Left circumflex: The left circumflex artery has mild diffuse disease. OM-1 has a widely patent stent in its proximal portion. Remainder of OM-1 had mild diffuse disease. OM-2 has mild diffuse disease. 4. Right coronary artery: The RCA is the dominant vessel. The RCA has mild diffuse disease without any significant obstructive disease. 5. Left ventricle: A. End-diastolic pressure 22mmHg. B. LV gram deferred. C. No significant gradient across aortic valve on catheter pullback. Description of Procedure: Informed consent signed and placed in the chart. Patient transferred to research lab assistant room. Prepped and draped in usual sterile fashion. 2% lidocaine injected subcutaneously in right wrist area. 22-gauge venipuncture catheter used to access the right radial artery with the Seldinger technique. 6-FR slender sheath placed in right radial artery. Nitroglycerine and Verapamil were given intraarterial through the sheath. Versacore wire advanced under fluoroscopy 5F Tig 4 diagnostic catheter engaged Left Main Coronary Artery. 5F JR 4 diagnostic catheter engaged Right Coronary Artery Multiple orthogonal angiogram obtained and reviewed 5F JR 4 diagnostic catheter crossed aortic valve to obtain LVEDP, LV angiogram deferred. Hemostasis was achieved by application of TR band. ? Assessment: 1. Moderate disease of the mid LAD. The mid LAD has diffuse calcific disease with a stenosis of up to 60-70% 2. Patent OM stent 3. Left ventricular end-diastolic pressure of 22mmHg Post Operative Condition: Stable No significant blood loss Disposition: Home Plan: The patient will be monitored in the recovery area. Discharge home after po
[2023-04-18] MEDS: ACETAMINOPHEN 325 MG TABLET 650 MG (11:10)
[2023-04-18] MEDS: ACETAMINOPHEN 325 MG TABLET 650 MG PO (11:13)
== END 2023-04-18 14:47 | disposition home or self-care (01) ==
PROVIDERS: PCP Internal Medicine; Visit Provider Internal Medicine
PROC: 4A023N7 Measurement of Cardiac Sampling and Pressure, Left Heart, Percutaneous Approach (ICD-10-PCS; CPT 93452; principal; 2023-04-18 10:00)
DX: I25.10 Atherosclerotic heart disease of native coronary artery without angina pectoris (principal); R94.39 Abnormal result of other cardiovascular function study; I12.9 Hypertensive chronic kidney disease with stage 1 through stage 4 chronic kidney disease, or unspecified chronic kidney disease; E11.22 Type 2 diabetes mellitus with diabetic chronic kidney disease; N18.30 Chronic kidney disease, stage 3 unspecified; I25.5 Ischemic cardiomyopathy; E78.5 Hyperlipidemia, unspecified; J44.9 Chronic obstructive pulmonary disease, unspecified; Z86.711 Personal history of pulmonary embolism; Z95.5 Presence of coronary angioplasty implant and graft; Z79.84 Long term (current) use of oral hypoglycemic drugs; Z79.82 Long term (current) use of aspirin; Z79.4 Long term (current) use of insulin
CPT/HCPCS: 36415; 80048; 85025; 93458; A9270; C1769; C1887; C1894; J1644; J2250; J2305; J3010; J7040

== ENCOUNTER 2023-05-17 11:58 | Outpatient (CLI) | payer MEDICARE, SELFPAY ==
--- NOTE | ~2023-05-17 | XR_ITS ---
EXAMINATION: XR shoulder RT min 2V, XR chest 2V, XR shoulder LT min 2V DATE: 05/17/2023 12:34 INDICATION: Bilateral shoulder pain. Coronary artery disease with congestive heart failure. TECHNIQUE: 1. PA and lateral views of the chest were obtained. 2. AP internally and externally rotated, AP oblique externally rotated and transscapular Y views of t he right shoulder were obtained. 3. AP internally and externally rotated, AP oblique externally rotated and transscapular Y views of t he left shoulder were obtained. COMPARISON: Chest radiograph dated 05/18/2022 FINDINGS: Chest: Unchanged mild linear discoid atelectasis/scarring at the lingula. No new airspace opacities, pulmona ry edema, pleural effusion or pneumothorax. Severe thoracic and lower cervical spondylosis. Surgical clips at the base of the left neck likely related to prior thyroidectomy. Right shoulder: Alignment is normal. Mild right glenohumeral and moderate acromioclavicular osteoarthritis. Subtle ca lcific density along the greater tuberosity consistent with rotator cuff calcific tendinitis. Left shoulder: Alignment is normal. Similar pattern of mild left glenohumeral and moderate acromioclavicular osteoar thritis. Also relatively symmetric subtle calcification projecting over the greater tuberosity consis tent with rotator cuff calcific tendinitis. IMPRESSION: 1. Unchanged mild lingular atelectasis/scarring. No other acute cardiopulmonary disease. 2. Relatively symmetric pattern of bilateral mild glenohumeral and moderate acromioclavicular osteoar thritis and calcific tendinitis along the greater tuberosities. Reviewed, dictated and finalized at location A. IMPRESSION: 1. Unchanged mild lingular atelectasis/scarring. No other acute cardiopulmonary disease. 2. Relatively symmetric pattern of bilateral mild glenohumeral and moderate acr omioclavicular osteoarthritis and calcific tendinitis along the greater tuberos ities. IMPRESSION: 1. Unchanged mild lingular atelectasis/scarring. No other acute cardiopulmonary disease. 2. Relatively symmetric pattern of bilateral mild glenohumeral and moderate acr omioclavicular osteoarthritis and calcific tendinitis along the greater tuberos ities.
[2023-05-17 12:26] LABS: Basophils Absolute Auto 0.09 K/mm3 (0.00-0.10); Eosinophils Absolute Auto 0.26 K/mm3 (0.02-0.50); Hematocrit 37.5 % (35.0-42.0); Hemoglobin 11.7 g/dL (11.7-13.8); Immature Granulocyte Absolute 0.02 K/mm3 (0.00-0.00); Immature Granulocyte Percent A 0.2 % (0.0-0.0); Lymphocytes Absolute Auto 1.89 K/mm3 (1.10-4.50); Mean Corpuscular HGB Conc 31.2 g/dL (32.0-36.0); Mean Corpuscular Hemoglobin 27.7 pg (27.0-31.0); Mean Corpuscular Volume 88.7 fL (78.0-102.0); Mean Platelet Volume 10.7 fl (9.2-11.8); Monocytes Absolute Auto 0.43 K/mm3 (0.10-0.90); Neutrophils Absolute Auto 5.9 K/mm3 (1.7-7.2); Neutrophils Percent Auto 68.8 % (50.0-70.0); Platelet Count Result 348 K/mm3 (150-420); Red Blood Count 4.23 M/mm3 (4.20-5.40); Red Cell Distribution Width 14.7 % (11.6-14.4); White Blood Count 8.6 K/mm3 (4.8-10.8)
[2023-05-17 12:47] LABS: Alanine Aminotransferase 29 U/L (14-59); Albumin Level 3.7 g/dL (3.4-5.0); Alkaline Phosphatase 75 U/L (46-116); Anion Gap 9 mmol/L (8-16); Aspartate Amino Transferase 20 U/L (15-37); Bilirubin,Total 0.3 mg/dL (0.00-1.00); Blood Urea Nitrogen 50 mg/dL (7-18); Carbon Dioxide 29 mmol/L (21-32); Chloride 102 mmol/L (98-108); Creatine Kinase 59 U/L (26-192); Estimated Glomerular Filt Rate 27; Glucose 203 mg/dL (70-99); Magnesium 2.2 mg/dL (1.8-2.4); NT Pro B Type Natriuretic Pept 783 pg/mL (0-450); Osmolality Calculated 309 mOsm/kg (285-295); Potassium 4.3 mmol/L (3.5-5.1); Sodium 140 mmol/L (136-145); Total Protein 7.1 g/dL (6.4-8.2); Troponin I 26.9 ng/L (0.00-60.4)
== END 2023-05-17 11:59 | disposition home or self-care (01) ==
LOC: CHSLAB 12:00
PROVIDERS: PCP Internal Medicine; Visit Provider Internal Medicine
DX: I50.9 Heart failure, unspecified (principal); I25.10 Atherosclerotic heart disease of native coronary artery without angina pectoris; M25.512 Pain in left shoulder; M25.511 Pain in right shoulder; M19.012 Primary osteoarthritis, left shoulder; M19.011 Primary osteoarthritis, right shoulder; J98.11 Atelectasis
CPT/HCPCS: 36415; 71046; 73030; 80053; 82550; 82553; 83735; 83880; 84484; 85025

== ENCOUNTER 2023-06-04 17:36 | Emergency (ER) | payer MEDICARE, SELFPAY ==
[2023-06-04] VITALS (7 sets, daily range): BP systolic 138–144; BP diastolic 63–88; PULSE 72–84; RESP 14–16; TEMP 36.6–36.8; O2SAT 96–98
--- NOTE | ~2023-06-04 | XR_ITS ---
EXAMINATION: XR chest 2V Exam Date/Time: 06/04/2023 17:42 CDT HISTORY: LEFT SIDE CP UNDER BREAST X 3 HOURS Comparison: 05/17/2023. RESULT: Lines, tubes, and devices: Surgical clips at the left neck. Lungs and pleura: Senescent changes, otherwise clear. Cardiomediastinal silhouette: Stable. Other: No acute osseous or upper abdominal finding. Stable mild L1 anterior wedge deformity. IMPRESSION: No acute cardiopulmonary process. Reviewed, dictated and finalized at location K.
--- NOTE | 2023-06-04 17:38 | ECG_ITS ---
Measurements Intervals [place] Rate: 75 P: 30 FL: 153 QRS: -64 QRSD: 157 T: 107 QT: 438 QTc: 490 Interpretive Statements SINUS RHYTHM WITH SINUS ARRHYTHMIA LEFT AXIS DEVIATION LEFT BUNDLE BRANCH BLOCK BASELINE ARTIFACT- I, II, III, AVR, AVL, AVF, V1-V3 ABNORMAL ECG COMPARED TO ECG 05/18/2022 11:45:32 SINUS ARRHYTHMIA NOW PRESENT LEFT-AXIS DEVIATION NOW PRESENT LEFT BUNDLE BRANCH BLOCK NOW PRESENT Electronically Signed On 06-04-2023 20:11:35 CDT by Brian Carson D.O.
--- NOTE | 2023-06-04 17:57 | ED.CHESTPAIN ---
HPI - Chest Pain General Chief Complaint: Chest Pain Stated Complaint: chest discomfort Time Seen by Provider: 06/04/23 17:38 Source: patient Mode of arrival: ambulatory Limitations: no limitations History of Present Illness HPI narrative: Patient is a 77 year old female with chest pain. Chest pains have been coming and going for the last few days. The pain is very sharp in nature and spasmodic. patient had a heart catheterization for medical clearance a few months ago but does not know the results and it was done at [facility]. complaint: chest pain Pertinent past history: other ( Left neck carotid endarterectomy done 2 weeks ago) Onset (ago): day(s) Timing of current episode: episodic and still present Prior episodes: Yes Onset: during rest Pain location: substernal, left chest and right chest Pain radiation: none Severity: moderate Pain scale (0-10): 6 Quality: sharp Relieving factors: nothing Exacerbating factors: nothing Treatment prior to arrival: none Risk Factors Thoracic aortic dissection risk factors: none Related Data On Oral Contraceptives: No Home Medications Medication Instructions Recorded Confirmed dapagliflozin propanediol 10 mg 10 tablet PO DAILY 03/20/22 06/04/23 tablet (Farxiga) metoprolol succinate 50 mg 50 mg PO DAILY 03/20/22 06/04/23 tablet,extended release 24 hr sitagliptin phosphate 25 mg tablet 25 tablet PO DAILY 03/20/22 06/04/23 (Januvia) alprazolam 0.25 mg tablet 0.25 mg PO BID PRN Anxiety 07/09/22 06/04/23 duloxetine 20 mg capsule,delayed 30 mg PO DAILY 07/09/22 06/04/23 release folic acid 800 mcg tablet 0.8 mg PO DAILY 07/09/22 06/04/23 omega 9-lyk-lzy-fish oil 100 1 cap PO DAILY 07/09/22 06/04/23 mg-160 mg-1,000 mg capsule (Fish Oil) cholecalciferol (vitamin D3) 25 25 mcg PO DAILY 04/17/23 06/04/23 mcg (1,000 unit) capsule (Vitamin D3) insulin degludec 100 unit/mL (3 16 unit subcut PRN PRN 04/17/23 06/04/23 mL) subcutaneous pen (Tresiba Hyperglycemia FlexTouch U-100 insulin) vitamin B complex (B 1 tablet PO EVERY OTHER DAY 04/17/23 06/04/23 Complex-Vitamin B12 tablet) atorvastatin 80 mg tablet 80 mg PO DAILY 05/09/23 06/04/23 clopidogrel 75 mg tablet 75 mg PO DAILY 05/09/23 06/04/23 hydralazine 25 mg tablet 25 mg PO TID 05/09/23 06/04/23 aspirin 325 mg tablet 325 mg PO DAILY 06/04/23 06/04/23 Allergies Allergy/AdvReac Type Severity Reaction Status Date / Time codeine Allergy Mild Hives Verified 06/04/23 17:48 tramadol AdvReac Mild Agitated Verified 06/04/23 17:48 Review of Systems Review of Systems: All systems reviewed & are unremarkable except as noted in HPI and below Constitutional: Constitutional: Reports no additional constitutional complaints Eyes: Eyes: Reports no additional eye complaints ENT: Reports system reviewed and no additional complaints, except as documented Cardiovascular: Cardiovascular: Reports no additional cardiovascular complaints Respiratory: Respiratory: Reports no additional respiratory complaints Gastrointestinal: Gastrointestinal: Reports no additional gastrointestinal complaints Genitourinary: Genitourinary: Reports no additional female genitourinary complaints Musculoskeletal: Musculoskeletal: Reports no additional musculoskeletal complaints Integumentary/Breasts: Skin/Breast: Reports system reviewed and no additional complaints, except as docu Neurologic: Reports system reviewed and no additional complaints, except as documented Psychiatric: Psychiatric: Reports no additional psychiatric complaints Endocrine: Endocrine: Reports no additional endocrine complaints Hematologic/Lymphatic: Hematologic/Lymphatic: Reports no additional hematologic/lymphatic complaints Allergic/Immunologic: Allergic/Immunologic: Reports no additional allergic/immunologic complaints PMFSH Past Medical History Medical History Abdominal pain, chronic, epigastri
[2023-06-04 18:05] LABS: Basophils Absolute Auto 0.06 K/mm3 (0.00-0.10); Basophils Percent Auto 0.5 % (0.0-1.0); Eosinophils Absolute Auto 0.29 K/mm3 (0.02-0.50); Eosinophils Percent Auto 2.3 % (1.0-6.0); Hematocrit 38.5 % (35.0-42.0); Hemoglobin 12.2 g/dL (11.7-13.8); Immature Granulocyte Absolute 0.07 K/mm3 (0.00-0.00); Immature Granulocyte Percent A 0.6 % (0.0-0.0); Lymphocytes Absolute Auto 3.14 K/mm3 (1.10-4.50); Lymphocytes Percent Auto 25.4 % (18.0-42.0); Mean Corpuscular HGB Conc 31.7 g/dL (32.0-36.0); Mean Corpuscular Hemoglobin 27.8 pg (27.0-31.0); Mean Corpuscular Volume 87.7 fL (78.0-102.0); Mean Platelet Volume 10.8 fl (9.2-11.8); Monocytes Absolute Auto 0.61 K/mm3 (0.10-0.90); Monocytes Percent Auto 4.9 % (2.0-11.0); Neutrophils Absolute Auto 8.2 K/mm3 (1.7-7.2); Neutrophils Percent Auto 66.3 % (50.0-70.0); Platelet Count Result 251 K/mm3 (150-420); Red Blood Count 4.39 M/mm3 (4.20-5.40); Red Cell Distribution Width 14.5 % (11.6-14.4); White Blood Count 12.4 K/mm3 (4.8-10.8)
[2023-06-04] MEDS: NITROGLYCERIN SL 0.4 MG TABLET SUBLINGUAL (18:12)
[2023-06-04 18:19] LABS: INR 0.9; Partial Thromboplastin Time 21.9 SEC (23.90-30.70); Prothrombin Time 9.9 Seconds (9.50-12.10)
[2023-06-04 18:27] LABS: Alanine Aminotransferase 32 U/L (14-59); Albumin Level 3.6 g/dL (3.4-5.0); Alkaline Phosphatase 70 U/L (46-116); Anion Gap 6 mmol/L (8-16); Aspartate Amino Transferase 18 U/L (15-37); Bilirubin,Total 0.3 mg/dL (0.00-1.00); Blood Urea Nitrogen 52 mg/dL (7-18); Carbon Dioxide 30 mmol/L (21-32); Chloride 103 mmol/L (98-108); Estimated Glomerular Filt Rate 31; Glucose 148 mg/dL (70-99); Lipase 48 U/L (16-77); NT Pro B Type Natriuretic Pept 732 pg/mL (0-450); Osmolality Calculated 305 mOsm/kg (285-295); Potassium 3.9 mmol/L (3.5-5.1); Sodium 139 mmol/L (136-145); Total Protein 7.1 g/dL (6.4-8.2); Troponin I 23.3 ng/L (0.00-60.4)
[2023-06-04 20:35] LABS: Appearance Urine Clear (Clear); Bilirubin Urine Negative (Negative); Blood Urine Negative (Negative); Color Urine Light Yellow (Yellow); Glucose Urine UA 3+ (Negative); Ketones Urine Negative (Negative); Leukocyte Esterase Ur Negative LEU/UL (Negative); Nitrate Urine Negative (Negative); Protein Urine Negative (Negative); Specific Grav Ur <= 1.005 (1.010-1.020); Urobilinogen Urine 0.2 mg/dL (0.2-1.0); pH Urine 5.5 (5.0-8.0)
[2023-06-04 20:43] LABS: Add Urine Microscopic? YES; Bacteria Urine Trace /hpf; RBC Urine 0-2 /hpf (0-2); Squamous Epithelial Cell Urine Rare /hpf (Few); WBC Urine 0-3 /hpf (0-3)
[2023-06-04 21:02] LABS: Troponin I 24.9 ng/L (0.00-60.4)
== END 2023-06-04 21:28 | disposition home or self-care (01) ==
PROVIDERS: Emergency Provider Emergency Medicine; PCP Internal Medicine
DX: R07.89 Other chest pain (principal); I25.10 Atherosclerotic heart disease of native coronary artery without angina pectoris; I13.0 Hypertensive heart and chronic kidney disease with heart failure and stage 1 through stage 4 chronic kidney disease, or unspecified chronic kidney disease; I50.9 Heart failure, unspecified; N18.30 Chronic kidney disease, stage 3 unspecified; E11.22 Type 2 diabetes mellitus with diabetic chronic kidney disease; Z79.899 Other long term (current) drug therapy; Z79.82 Long term (current) use of aspirin
CPT/HCPCS: 36415; 71046; 80053; 81001; 83690; 83880; 84484; 85025; 85610; 85730; 93005; 99284; A9270

== ENCOUNTER 2023-06-28 16:30 | Outpatient (CLI) | payer MEDICARE, SELFPAY ==
--- NOTE | ~2023-06-28 | XR_ITS ---
EXAM: XR knee LT min 4V DATE: 06/28/2023 16:53 HISTORY: left knee pain, left leg swelling X 1 WEEK . COMPARISON: 07/24/2018 x-ray tibia and fibula. FINDINGS: Decreased mineralization. No fracture or dislocation. No lytic or blastic lesion. Mild med ial joint space narrowing. Mild tricompartmental osteophytosis. Quadriceps enthesopathy. No erosion o r periosteal change. Scattered vascular calcifications. Meniscal calcification. IMPRESSION: Mild tricompartmental left knee osteoarthritis. Reviewed, dictated and finalized at location K.
[2023-06-28 16:45] LABS: Basophils Absolute Auto 0.07 K/mm3 (0.00-0.10); Basophils Percent Auto 0.9 % (0.0-1.0); Eosinophils Absolute Auto 0.19 K/mm3 (0.02-0.50); Eosinophils Percent Auto 2.3 % (1.0-6.0); Hematocrit 37.4 % (35.0-42.0); Immature Granulocyte Absolute 0.05 K/mm3 (0.00-0.00); Immature Granulocyte Percent A 0.6 % (0.0-0.0); Lymphocytes Absolute Auto 2.15 K/mm3 (1.10-4.50); Lymphocytes Percent Auto 26.5 % (18.0-42.0); Mean Corpuscular HGB Conc 32.1 g/dL (32.0-36.0); Mean Corpuscular Hemoglobin 28.8 pg (27.0-31.0); Mean Corpuscular Volume 89.7 fL (78.0-102.0); Mean Platelet Volume 9.8 fl (9.2-11.8); Monocytes Absolute Auto 0.48 K/mm3 (0.10-0.90); Monocytes Percent Auto 5.9 % (2.0-11.0); Neutrophils Absolute Auto 5.2 K/mm3 (1.7-7.2); Neutrophils Percent Auto 63.8 % (50.0-70.0); Platelet Count Result 241 K/mm3 (150-420); Red Blood Count 4.17 M/mm3 (4.20-5.40); Red Cell Distribution Width 14.8 % (11.6-14.4); White Blood Count 8.1 K/mm3 (4.8-10.8)
[2023-06-28 17:05] LABS: D Dimer 1.13 mg/L (0.19-0.50)
[2023-06-28 17:18] LABS: Alanine Aminotransferase 37 U/L (14-59); Albumin Level 3.5 g/dL (3.4-5.0); Alkaline Phosphatase 69 U/L (46-116); Anion Gap 12 mmol/L (8-16); Aspartate Amino Transferase 16 U/L (15-37); Bilirubin,Total 0.3 mg/dL (0.00-1.00); Blood Urea Nitrogen 40 mg/dL (7-18); CRP < 0.5 mg/dL (0.0-0.9); Carbon Dioxide 29 mmol/L (21-32); Chloride 104 mmol/L (98-108); Estimated Glomerular Filt Rate 23; Glucose 147 mg/dL (70-99); NT Pro B Type Natriuretic Pept 867 pg/mL (0-450); Osmolality Calculated 312 mOsm/kg (285-295); Potassium 4.4 mmol/L (3.5-5.1); Sodium 145 mmol/L (136-145); Total Protein 6.5 g/dL (6.4-8.2)
== END 2023-06-28 16:31 | disposition home or self-care (01) ==
LOC: CHSLAB 16:32
PROVIDERS: PCP Internal Medicine; Visit Provider Nurse Practitioner Family
DX: M25.562 Pain in left knee (principal); M79.89 Other specified soft tissue disorders; I50.9 Heart failure, unspecified; M17.12 Unilateral primary osteoarthritis, left knee
CPT/HCPCS: 36415; 73564; 80053; 83880; 85025; 85380; 86140

== ENCOUNTER 2023-07-01 09:08 | Outpatient (CLI) | payer MEDICARE, SELFPAY ==
--- NOTE | ~2023-07-01 | US_ITS ---
EXAMINATION: US venous doppler [facility] DATE: 07/01/2023 09:43 INDICATION: Left lower limb swelling. TECHNIQUE: Grayscale ultrasound images without and with compression and Doppler ultrasound images of the left lower extremity veins were obtained. COMPARISON: Ultrasound 10/28/2019 FINDINGS: The visualized portions of left common femoral vein, profunda (deep) femoral vein, femoral vein, popl iteal vein, peroneal veins, posterior tibial veins, and greater saphenous vein outflow are patent. IMPRESSION: 1. No deep venous thrombosis. Reviewed, dictated and finalized at location E.
== END 2023-07-01 09:09 | disposition home or self-care (01) ==
PROVIDERS: PCP Internal Medicine; Visit Provider Nurse Practitioner Family
DX: R79.1 Abnormal coagulation profile (principal); M79.89 Other specified soft tissue disorders
CPT/HCPCS: 93971

== ENCOUNTER 2023-07-11 10:22 | Outpatient (CLI) | payer MEDICARE, SELFPAY ==
[2023-07-11 11:13] LABS: Alanine Aminotransferase 32 U/L (14-59); Albumin Level 3.3 g/dL (3.4-5.0); Alkaline Phosphatase 62 U/L (46-116); Anion Gap 5 mmol/L (8-16); Aspartate Amino Transferase 15 U/L (15-37); Bilirubin,Total 0.5 mg/dL (0.00-1.00); Blood Urea Nitrogen 28 mg/dL (7-18); Carbon Dioxide 32 mmol/L (21-32); Chloride 106 mmol/L (98-108); Estimated Glomerular Filt Rate 35; Glucose 193 mg/dL (70-99); NT Pro B Type Natriuretic Pept 699 pg/mL (0-450); Osmolality Calculated 306 mOsm/kg (285-295); Potassium 4.4 mmol/L (3.5-5.1); Sodium 143 mmol/L (136-145)
== END 2023-07-11 10:23 | disposition home or self-care (01) ==
LOC: CHSLAB 10:24
PROVIDERS: PCP Internal Medicine; Visit Provider Nurse Practitioner Family
DX: I25.10 Atherosclerotic heart disease of native coronary artery without angina pectoris (principal); N18.30 Chronic kidney disease, stage 3 unspecified; I50.9 Heart failure, unspecified
CPT/HCPCS: 36415; 80053; 83880

== ENCOUNTER 2023-08-01 10:49 | Outpatient (RCR) | payer MEDICARE, SELFPAY ==
--- NOTE | 2023-08-01 11:47 | OPREHPOC ---
Outpatient Therapy Plan of Care This is a Multidisciplinary Plan of Care that may contain components documented by all disciplines (PT, OT, and ST.) PT Problem 1 PT Problem #1 Knowledge Deficit PT Goal 1 Goal 1. independent and compliant with HEP Target Visit 4 PT Problem 2 PT Problem #2 Impaired Strength PT Goal 1 Goal 1. 5/5 bilateral knee strength 2. 5/5 bilateral ankle DF 2. 4+/5 bilateral hip flexion sitting Target Visit 8 PT Problem 3 PT Problem #3 Impaired Functional Mobil PT Goal 1 Goal 1. tinetti to display moderate fall risk or less 2. patient to ambulate safely with most approprioate AD to decrease fall risk/injury 3. patient to complete 6 minute walk test with most appropriate AD with modified independence 4. TUG and 5x sit to stand to be completed in under 15 seconds each 5. patient to be ready to transition to fall prevention class. Target Visit 8
--- NOTE | 2023-08-01 11:48 | PTOPEVAL1 ---
Assessment and note entered by JT File, PT Evaluation Information Assessment Status Evaluation Diagnosis unsteady gait, falls Onset 07/29/23 Subjective Information patient reports she has been having issues with her balance for the last 6 months. she reports she fell at her brothers house where she missed the bottom step on 06/22/23. she reports she has fallen 2 times since then. she reports she falls forwards more frequently than backwards. she reports she would like to get into the fall prevention class. she had a carotid artery surgery this year. she reports she is having MRI's this weekend of her back and head. she reports she does not own a cane or a walker. Reported Pain Level Pain Score 0: Self Report Assessment PT Clinical Summary mrs. randall is a 77 yo woman who presents to skilled PT services for evaluation of unsteady gait and history of multiple falls. she presents with a high fall risk per the tinetti, LE weakness , and unsteady gait without an AD. she would benefit from continued skilled PT to improve her objective/functional deficits to prevent additional loss of balance and falls. Plan of Care Interventions Gait Training,Neuro Re-education,Patient/Caregiver Educati,Therapeutic Activities,Therapeutic Exercise PT Services Indicated Yes Treatment Frequency and continue skilled PT 2x weekly for 8 visits Duration These treatments will address the objective and functional deficits as defined above. The patient will be advanced safely and appropriately in order for the patient to progress towards his/her prior level of function. Additional exercises will be introduced and as well as a comprehensive home exercise program upon discharge, if needed, ?to ensure carryover of functional gains achieved in the clinic. This treatment plan has been reviewed and agreement upon by the patient.
== END 2023-08-09 20:00 | disposition home or self-care (01) ==
LOC: CHSPT 10:49
PROVIDERS: PCP Internal Medicine; Visit Provider Internal Medicine
DX: M25.511 Pain in right shoulder (principal); M25.512 Pain in left shoulder; R26.81 Unsteadiness on feet; R29.6 Repeated falls
CPT/HCPCS: 97110; 97161; 97530

== ENCOUNTER 2023-08-03 08:59 | Outpatient (CLI) | payer MEDICARE, SELFPAY ==
--- NOTE | ~2023-08-03 | MR_ITS ---
MRI of the lumbar spine Clinical History: Back pain Technique: Axial T2-weighted images, and sagittal T1-weighted, T2-weighted, and T2 fat-sat images wer e acquired. COMPARISON: 02/25/2016 Findings: No acute fracture or subluxation seen. There is minimal chronic anterior wedging deformity of L1. No suspicious bone marrow signal reality seen. At L1-L2, there is minimal disc bulge and mild facet arthropathy. No central canal stenosis or neural foraminal narrowing. At L2-L3, there is moderate degenerative disc narrowing. There is disc bulge and moderate facet arthr opathy. No central canal stenosis. There is minimal right neural foraminal narrowing. Left neural for amen preserved. At L3-L4, there is disc bulge and facet arthropathy, with mild central canal stenosis. There is moder ate to advanced right neural foraminal narrowing, and minimal left neural foraminal narrowing. At L4-L5, there is disc bulge and moderate to severe facet arthropathy, left worse than right. No jorden tral canal stenosis. There is severe left neural foraminal narrowing. Right neural foramen preserved. At L5-S1, there is mild disc bulge with moderate facet arthropathy. No central canal stenosis. There is moderate bilateral neural foraminal narrowing. Paravertebral soft tissues are unremarkable. Impression: Moderate degenerative spondylosis, as detailed above, with multilevel neural foraminal narrowing. Minimal chronic anterior wedging deformity of L1. Reviewed, dictated and finalized at [facility]. E LACER Impression: Moderate degenerative spondylosis, as detailed above, with multilevel neural fo raminal narrowing. Minimal chronic anterior wedging deformity of L1.
--- NOTE | ~2023-08-03 | MR_ITS ---
MRI of the brain Clinical History: Spinal stenosis, ataxia Technique: Axial and sagittal T1-weighted images were acquired. These were followed by axial T2-weigh danae, diffusion weighted, gradient, and FLAIR images. Findings: There is no acute infarct, intracranial hemorrhage, or mass lesion. There are moderate to s evere chronic microvascular ischemic changes in the periventricular white matter bilaterally, with ad ditional involvement in the alice. Ventricles and subarachnoid spaces are unremarkable. Orbits are unremarkable. Paranasal sinuses and m astoid air cells are clear. Major intracranial flow voids are intact. Sagittal midline structures are intact. IMPRESSION: Moderate to severe chronic microvascular ischemic changes, otherwise unremarkable exam. Reviewed, dictated and finalized at location M. CTOR OF VALUATION IMPRESSION: Moderate to severe chronic microvascular ischemic changes, otherwise unremarkab le exam.
--- NOTE | ~2023-08-03 | XR_ITS ---
CORRECTED REPORT examination description [facility] [place] This report was recreated on 08/08/23. Original report was ING INSTRUCTOR EXAMINATION:XR cervical spine 2-3V DATE: 08/03/2023 10:41 INDICATION: Neck pain TECHNIQUE: AP, lateral, lateral swimmers and odontoid views of the cervical spine are provided. COMPARISON: None FINDINGS: There are 2 mm of retrolisthesis of C4 on C5. The odontoid process is intact. No fracture is identified. There is severe loss of intervertebral disc space height at C4-5, C5-6, and C6-7. Prevertebral soft tissues are normal. There is multilevel severe facet and uncovertebral joint osteoarthritis. Surgical clips are noted in the left neck. IMPRESSION: 1. Severe cervical spondylosis without acute findings or significant interval change. Reviewed, dictated and finalized at location B. ING INSTRUCTOR MTDD
[2023-08-06 05:03] LABS: Homocysteine 12.4 umol/L (<10.4)
== END 2023-08-03 09:00 | disposition home or self-care (01) ==
LOC: CHSIMG 09:01
PROVIDERS: PCP Internal Medicine; Visit Provider Internal Medicine
DX: D68.69 Other thrombophilia (principal); R27.0 Ataxia, unspecified; I63.9 Cerebral infarction, unspecified; M48.00 Spinal stenosis, site unspecified; M54.2 Cervicalgia; M43.02 Spondylolysis, cervical region; M43.06 Spondylolysis, lumbar region; M48.56XA Collapsed vertebra, not elsewhere classified, lumbar region, initial encounter for fracture
CPT/HCPCS: 36415; 70551; 72040; 72050; 72148; 83090

== ENCOUNTER 2023-09-03 13:24 | Emergency (ER) | payer MEDICARE, SELFPAY ==
[2023-09-03] VITALS (17 sets, daily range): BP systolic 156–187; BP diastolic 70–85; PULSE 80; RESP 18; TEMP 36.5–36.6; O2SAT 91–99
--- NOTE | ~2023-09-03 | CT_ITS ---
EXAMINATION: CT brain wo con DATE: 09/03/2023 14:37 INDICATION: Fall, headache and hypertension. TECHNIQUE: Computed tomography (CT) of the head was performed without intravenous contrast. Sagittal and coronal reconstructions were performed. The mA was adjusted according to patient size. Iterative reconstruction technique was employed. The dose-length product was 605.33 mGy-cm. COMPARISON: head CT dated 11/24/2021 FINDINGS: No fracture. No acute intracranial hemorrhage, acute infarction or abnormal extra axial fluid collect ion. There is moderate scattered white matter hypoattenuation consistent with chronic small vessel is chemic disease. Ventricles are normal and symmetric. No mass/mass effect. Changes of bilateral intra ocular lens replacement. The orbits, paranasal sinuses and mastoid air cells are normal. Intracranial calcified cerebral atherosclerosis is noted at the bilateral carotid siphons. IMPRESSION: 1. No fracture or acute intracranial process. 2. Moderate scattered white matter hypoattenuation consistent with chronic small vessel ischemic dise ase. Reviewed, dictated and finalized at location A. TECHNICIAN IMPRESSION: 1. No fracture or acute intracranial process. 2. Moderate scattered white matter hypoattenuation consistent with chronic smal l vessel ischemic disease.
--- NOTE | 2023-09-03 13:49 | ED.HA ---
HPI - Headache General Chief Complaint: Headache Stated Complaint: headache Time Seen by Provider: 09/03/23 13:33 Source: patient Mode of arrival: ambulatory Limitations: no limitations History of Present Illness HPI Narrative: 77-year-old female with the history of hypertension, dyslipidemia, diabetes mellitus, coronary artery disease status post OM 1 and LAD stent, pulmonary hypertension, positive stress test on the Lexiscan done on 03/25/2023, COPD, pulmonary embolism on warfarin, CKD , Migraine presents to the ER with a one-week history of -- headache which is throbbing and continuous. The patient has nausea and photophobia. No focal neuro deficits. Patient has had prior headaches but they have not lasted this long. No history of trauma. Patient had an MRI last month which did not show any acute findings. MD elicited complaint: headache Pertinent past history: migraines Onset (ago): day(s) ( Started 7 days ago) Onset description: gradually Location: generalized Severity: severe Quality & Timing: aching and throbbing Exacerbating factors: none Relieving factors: nothing Context: occurred at rest Associated symptoms: nausea and photophobia Related Data Home Medications Medication Instructions Recorded Confirmed dapagliflozin propanediol 10 mg 10 tablet PO DAILY 03/20/22 09/02/23 tablet (Farxiga) metoprolol succinate 50 mg 50 mg PO DAILY 03/20/22 09/02/23 tablet,extended release 24 hr sitagliptin phosphate 25 mg tablet 25 tablet PO DAILY 03/20/22 09/02/23 (Januvia) alprazolam 0.25 mg tablet 0.25 mg PO BID PRN Anxiety 07/09/22 09/02/23 duloxetine 20 mg capsule,delayed 30 mg PO DAILY 07/09/22 09/02/23 release folic acid 800 mcg tablet 0.8 mg PO DAILY 07/09/22 09/02/23 omega 9-sol-jlo-fish oil 100 1 cap PO DAILY 07/09/22 09/02/23 mg-160 mg-1,000 mg capsule (Fish Oil) cholecalciferol (vitamin D3) 25 25 mcg PO DAILY 04/17/23 09/02/23 mcg (1,000 unit) capsule (Vitamin D3) insulin degludec 100 unit/mL (3 16 unit subcut PRN PRN 04/17/23 09/02/23 mL) subcutaneous pen (Tresiba Hyperglycemia FlexTouch U-100 insulin) vitamin B complex (B 1 tablet PO EVERY OTHER DAY 04/17/23 09/02/23 Complex-Vitamin B12 tablet) atorvastatin 80 mg tablet 80 mg PO DAILY 05/09/23 09/02/23 hydralazine 25 mg tablet 25 mg PO TID 05/09/23 09/02/23 aspirin 325 mg tablet 325 mg PO DAILY 06/04/23 09/02/23 Allergies Allergy/AdvReac Type Severity Reaction Status Date / Time codeine Allergy Mild Hives Verified 09/03/23 13:36 tramadol AdvReac Mild Agitated Verified 09/03/23 13:36 Review of Systems Review of Systems: All systems reviewed & are unremarkable except as noted in HPI and below Constitutional: Constitutional: Reports as per HPI Eyes: Eyes: Reports as per HPI, Reports no additional eye complaints and Reports photophobia ENT: Reports system reviewed and no additional complaints, except as documented and Reports as per HPI Cardiovascular: Cardiovascular: Reports as per HPI and Reports no additional cardiovascular complaints Respiratory: Respiratory: Reports as per HPI and Reports no additional respiratory complaints Gastrointestinal: Gastrointestinal: Reports as per HPI, Reports no additional gastrointestinal complaints and Reports nausea Genitourinary: Genitourinary: Reports no additional female genitourinary complaints Musculoskeletal: Musculoskeletal: Reports no additional musculoskeletal complaints and Reports as per HPI Integumentary/Breasts: Skin/Breast: Reports system reviewed and no additional complaints, except as docu and Reports as per HPI Neurologic: Reports system reviewed and no additional complaints, except as documented and Reports as per HPI Psychiatric: Psychiatric: Reports no additional psychiatric complaints and Reports as per HPI Endocrine: Endocrine: Reports no additional endocrine complaints and Reports as per HPI Hematologic/Lymphatic: Hematologic/Lymphatic: Reports no additional
[2023-09-03] MEDS: ONDANSETRON HCL ODT 4 MG TABLET PO (14:57)
[2023-09-03] MEDS: HYDROmorphone HCL INJ (*CRX) 2 MG/ML VIAL 0.5 MG IM (14:58)
== END 2023-09-03 15:55 | disposition home or self-care (01) ==
PROVIDERS: Emergency Provider Internal Medicine Critical Care Medicine; PCP Internal Medicine
DX: G43.011 Migraine without aura, intractable, with status migrainosus (principal); E78.5 Hyperlipidemia, unspecified; I25.10 Atherosclerotic heart disease of native coronary artery without angina pectoris; J44.9 Chronic obstructive pulmonary disease, unspecified; I12.9 Hypertensive chronic kidney disease with stage 1 through stage 4 chronic kidney disease, or unspecified chronic kidney disease; E11.22 Type 2 diabetes mellitus with diabetic chronic kidney disease; N18.30 Chronic kidney disease, stage 3 unspecified; Z79.01 Long term (current) use of anticoagulants
CPT/HCPCS: 70450; 96372; 99284; A9270; J1170

== ENCOUNTER 2024-01-13 14:07 | Outpatient (CLI) | payer MEDICARE, SELFPAY ==
[2024-01-13 14:25] LABS: Basophils Absolute Auto 0.07 K/mm3 (0.00-0.10); Basophils Percent Auto 0.8 % (0.0-1.0); Eosinophils Absolute Auto 0.26 K/mm3 (0.02-0.50); Eosinophils Percent Auto 3.1 % (1.0-6.0); Hematocrit 42.6 % (35.0-42.0); Hemoglobin 13.1 g/dL (11.7-13.8); Immature Granulocyte Absolute 0.04 K/mm3 (0.00-0.00); Immature Granulocyte Percent A 0.5 % (0.0-0.0); Lymphocytes Absolute Auto 2.55 K/mm3 (1.10-4.50); Lymphocytes Percent Auto 30.3 % (18.0-42.0); Mean Corpuscular HGB Conc 30.8 g/dL (32-36); Mean Corpuscular Hemoglobin 27.2 pg (27.0-31.0); Mean Corpuscular Volume 88.4 fL (78.0-102.0); Mean Platelet Volume 10.6 fl (9.2-11.8); Monocytes Percent Auto 4.8 % (2.0-11.0); Neutrophils Percent Auto 60.5 % (50.0-70.0); Platelet Count Result 243 K/mm3 (150-420); Red Blood Count 4.82 M/mm3 (4.20-5.40); Red Cell Distribution Width 14.1 % (11.6-14.4); White Blood Count 8.4 K/mm3 (4.8-10.8)
[2024-01-13 14:43] LABS: Hemoglobin A1C 7.8 % (<5.7)
[2024-01-13 15:05] LABS: Alanine Aminotransferase 28 U/L (14-59); Albumin Level 3.7 g/dL (3.4-5.0); Alkaline Phosphatase 58 U/L (46-116); Anion Gap 8 mmol/L (4-12); Aspartate Amino Transferase 18 U/L (15-37); Bilirubin,Total 0.5 mg/dL (0.00-1.00); Blood Urea Nitrogen 36 mg/dL (7-18); Calcium 8.7 mg/dL (8.5-10.1); Carbon Dioxide 31 mmol/L (21-32); Chloride 104 mmol/L (98-108); Cholesterol 178 mg/dL (0-200); Estimated Glomerular Filt Rate 27; Glucose 114 mg/dL (70-99); HDL Direct 53 mg/dL (40-60); LDL Cholesterol Calculated 105 mg/dL (<130); Magnesium 2.1 mg/dL (1.8-2.4); NT Pro B Type Natriuretic Pept 1236 pg/mL (0-450); Osmolality Calculated 305 mOsm/kg (285-295); Potassium 4.5 mmol/L (3.5-5.1); Sodium 143 mmol/L (136-145); Thyroid Stimulating Hormone 0.65 uIU/mL (0.36-3.74); Total Protein 6.8 g/dL (6.4-8.2); Triglycerides 101 mg/dL (0-150)
== END 2024-01-13 14:08 | disposition home or self-care (01) ==
LOC: CHSLAB 14:09
PROVIDERS: PCP Internal Medicine; Visit Provider Internal Medicine
DX: I10 Essential (primary) hypertension (principal); I25.10 Atherosclerotic heart disease of native coronary artery without angina pectoris; E11.9 Type 2 diabetes mellitus without complications; I50.9 Heart failure, unspecified
CPT/HCPCS: 36415; 80053; 80061; 83036; 83735; 83880; 84443; 85025

== ENCOUNTER 2024-02-06 12:35 | Outpatient (CLI) | payer MEDICARE, SELFPAY ==
[2024-02-06 12:51] LABS: Hematocrit 40.2 % (35.0-42.0); Mean Corpuscular HGB Conc 29.9 g/dL (32-36); Mean Corpuscular Hemoglobin 27.1 pg (27.0-31.0); Mean Corpuscular Volume 90.7 fL (78.0-102.0); Mean Platelet Volume 10.5 fl (9.2-11.8); Platelet Count Result 221 K/mm3 (150-420); Red Blood Count 4.43 M/mm3 (4.20-5.40); Red Cell Distribution Width 13.7 % (11.6-14.4); White Blood Count 7.3 K/mm3 (4.8-10.8)
[2024-02-06 13:20] LABS: Anion Gap 7 mmol/L (4-12); Blood Urea Nitrogen 33 mg/dL (7-18); Calcium 8.7 mg/dL (8.5-10.1); Carbon Dioxide 32 mmol/L (21-32); Chloride 105 mmol/L (98-108); Estimated Glomerular Filt Rate 33; Glucose 164 mg/dL (70-99); Osmolality Calculated 309 mOsm/kg (285-295); Potassium 4.9 mmol/L (3.5-5.1); Sodium 144 mmol/L (136-145)
[2024-02-10 12:58] LABS: Homocysteine 9.2 umol/L (<10.4)
== END 2024-02-06 12:36 | disposition home or self-care (01) ==
LOC: CHSLAB 12:38
PROVIDERS: PCP Internal Medicine; Visit Provider Internal Medicine Hematology & Oncology
DX: D68.69 Other thrombophilia (principal)
CPT/HCPCS: 36415; 80048; 83090; 85027

== ENCOUNTER 2024-08-12 11:35 | Outpatient (CLI) | payer MEDICARE, SELFPAY ==
[2024-08-12 12:15] LABS: Basophils Absolute Auto 0.1 K/mm3 (0.0-0.1); Basophils Percent Auto 0.8 % (0.2-1.2); Eosinophils Absolute Auto 0.3 K/mm3 (0-0.3); Hematocrit 40.4 % (37.0-47.0); Hemoglobin 12.7 g/dL (12.0-15.0); Immature Granulocyte Absolute 0.03 K/mm3 (0.00-0.031); Immature Granulocyte Percent A 0.4 % (0-0.5); Lymphocytes Absolute Auto 2.26 K/mm3 (0.9-3.2); Lymphocytes Percent Auto 29.4 % (18.3-44.2); Mean Corpuscular HGB Conc 31.4 g/dl (32-36); Mean Corpuscular Hemoglobin 28.6 pg (26-34); Mean Platelet Volume 9.7 fl (7.4-10.4); Monocytes Absolute Auto 0.5 K/mm3 (0.1-0.6); Monocytes Percent Auto 6.5 % (2.6-8.5); Neutrophils Absolute Auto 4.5 K/mm3 (1.3-6.7); Neutrophils Percent Auto 58.9 % (45.5-73.1); Platelet Count Result 223 k/mm3 (150-375); Red Blood Count 4.44 M/mm3 (4.2-5.4); Red Cell Distribution Width 13.8 % (11.5-14.5); White Blood Count 7.7 K/mm3 (4.5-10.0)
[2024-08-12 17:41] LABS: Anion Gap 6 mmol/L (4-12); Blood Urea Nitrogen 30 mg/dL (7-17); Carbon Dioxide 32 mmol/L (22-30); Chloride 100 mmol/L (98-107); Estimated Glomerular Filt Rate 34; Glucose 146 mg/dL (65-110); Potassium 4.2 mmol/L (3.4-5.0); Sodium 138 mmol/L (137-145)
[2024-08-14 11:49] LABS: Homocysteine 11.6 umol/L (<10.4)
== END 2024-08-12 11:36 | disposition home or self-care (01) ==
LOC: ANHLAB 11:36
PROVIDERS: PCP Internal Medicine; Visit Provider Internal Medicine Hematology & Oncology
DX: D68.69 Other thrombophilia (principal)
CPT/HCPCS: 36415; 80048; 83090; 85025

== ENCOUNTER 2024-08-24 10:07 | Outpatient (CLI) | payer MEDICARE, SELFPAY ==
--- NOTE | ~2024-08-24 | MMUS_ITS ---
EXAMINATION: MM diagnostic any BI w lavell, US breast LT complete HISTORY: Left breast pain TECHNIQUE: Additional 3-D tomosynthesis images of the left breast were performed and synthetic 2-D im ages were generated. CAD analysis was submitted and interpreted. High resolution Limited left breast ultrasound was performed. COMPARISON: Comparison to multiple prior studies sequentially, with oldest reviewed study dated 02/16. BREAST PARENCHYMAL COMPOSITION: Not dense: There are scattered areas of fibroglandular density. FINDINGS: MAMMOGRAPHIC FINDINGS: There are no suspicious masses, calcifications or architectural distortion in either breast to sugges t malignancy. ULTRASOUND: Complete US of all 4 quadrants of the left breast/s and retroareolar region was reviewed. At 10:00, 5 cm from the nipple there is a small 2 mm cyst. No suspicious masses in the left breast to suggest ma lignancy. IMPRESSION: 1. No evidence for malignancy in either breast. 2. Routine yearly screening mammogram and regular clinical breast examination are recommended. BI-RADS Category 2: Benign finding(s). . Reviewed, dictated and finalized at location B. DREN'S COUNSELOR IMPRESSION: 1. No evidence for malignancy in either breast. 2. Routine yearly screening mammogram and regular clinical breast examination a re recommended. BI-RADS Category 2: Benign finding(s). .
== END 2024-08-24 10:08 | disposition home or self-care (01) ==
LOC: CHSIMG 10:09
PROVIDERS: PCP Internal Medicine; Visit Provider Nurse Practitioner Family
DX: N64.4 Mastodynia (principal)
CPT/HCPCS: 76641; 77062; 77066; G0279

== ENCOUNTER 2024-09-01 16:51 | Inpatient (IN) | payer MEDICARE, SELFPAY ==
--- NOTE | ~2024-09-01 | CT_ITS ---
CT lumbar spine wo con Ordering provider: Karen Munroe PA-C History: 78 years Female with . low back pain . Comparison: None. Technique: CT lumbar spine without contrast. Automated exposure control and iterative reconstruction technique were employed. The dose-length product was 495.45 mGy-cm. FINDINGS: VERTEBRAE: Slight loss of height of L1 which is most likely chronic. If still suspicious MRI is advis ed. otherwise, Normal height and alignment. No subluxation or visible acute fracture. Mild levoscoli osis. Degenerative changes of the spine. DISC SPACES: Moderate Narrowing of the disc T12-L1, L1-L2, L3-L4 and L4-L5. Severe narrowing seen at the level of L2-L3. Multilevel facet joint disease. Bilateral sacroiliacs. T12-L1: No stenosis. Mild diffuse disc bulge. L1-L2: No stenosis. Mild diffuse disc bulge. L2-L3: No stenosis. Mild diffuse disc bulge with bilateral narrowing of the foramina. No definite ro ot compression L3-L4: Mild spinal canal stenosis secondary to broad based disc bulge, facet arthropathy, and ligamen surjit flavum hypertrophy. Posterior osteophyte is also noted. L4-L5: No stenosis. Diffuse disc bulge with bilateral narrowing of the foramina. Root compression is seen in the left side. L5-S1: No stenosis. Osteophytes with narrowing of the foramina and nerve root compression. PARASPINOUS SOFT TISSUES: Mild atheromatous disease of the abdominal aorta. Right kidney stone. Diverticulosis of the colon. IMPRESSION: No acute osseous abnormality . Multilevel degenerative disc disease. Reviewed, dictated and finalized at location A. [facility]
--- NOTE | ~2024-09-01 | US_ITS ---
EXAMINATION: US abdomen limited DATE: 09/06/2024 09:22 INDICATION: Abnormal liver function tests. TECHNIQUE: Multiple grayscale and Doppler ultrasound images of the abdomen were obtained. COMPARISON: CT abdomen and pelvis 11/24/2021 FINDINGS: There is a 1.2 cm cyst in the pancreas, likely a pseudocyst. The liver is normal without fo clau lesion. No liver surface nodularity. There is normal flow in main portal vein. The gallbladder is absent. The common duct is normal and measures 10 mm . IMPRESSION: 1. 1.2 cm cyst in the pancreas, likely a pseudocyst given the findings of chronic pancreatitis on the prior CT. Reviewed, dictated and finalized at location A. SHIFT MGR IMPRESSION: 1. 1.2 cm cyst in the pancreas, likely a pseudocyst given the findings of chron ic pancreatitis on the prior CT.
--- NOTE | ~2024-09-01 | CT_ITS ---
CT brain wo con Ordering provider: Monika Rodríguez MD History: 78 years Female with . fall . Comparison: None. Technique: CT of the head without contrast. Radiation reduction technique utilized.The dose-length pr oduct was 681 mGy-cm. FINDINGS: BRAIN PARENCHYMA AND CSF SPACES: Mild leukoaraiosis and diffuse cortical atrophy. Mild atheromatous d isease. No midline shift, mass effect or hemorrhage. The brain parenchyma and CSF spaces are otherwi se normal. VISUALIZED PARANASAL SINUSES: Well aerated. MASTOIDS: Well aerated. BONES: The bones appear intact. SOFT TISSUES: Visualized nasopharynx is normal. Superficial soft tissues are normal. IMPRESSION: No acute intracranial findings. Reviewed, dictated and finalized at location A. [facility]
--- NOTE | ~2024-09-01 | XR_ITS ---
EXAMINATION: XR surgery orthopedic DATE: 09/02/2024 15:18 INDICATION: Intertrochanteric fracture of proximal left femur. TECHNIQUE: 5 intraoperative fluoroscopic views of left hip were obtained. I was not present. Fluorosc opy exposure time was 83 seconds. COMPARISON: Left hip radiographs 09/01/2024 FINDINGS: There is an intertrochanteric fracture of proximal left femur in near-anatomic alignment st atus post open reduction internal fixation with antegrade intramedullary stephie and femoral head/neck sc rew. IMPRESSION: 1. Intertrochanteric fracture of proximal left femur status post open reduction internal fixation. Reviewed, dictated and finalized at location A. ICE NURSE
--- NOTE | ~2024-09-01 | CT_ITS ---
CT cervical spine wo con Ordering provider: Monika Rodríguez MD History: . fall . Comparison: None. Technique: CT of the cervical spine was performed without contrast. Sagittal and coronal reformatted images were also obtained and reviewed. Automated exposure control and iterative reconstruction nasra hnique were employed. The dose-length product was 414.39 mGy-cm. FINDINGS: VERTEBRAE: No subluxation or acute fracture. The occipital condyles are intact. DISC SPACES: Narrowing of the disc spaces C4-C5, C5-C6, C6-C7 and C7-T1. Multilevel facet joint disea se. Multilevel uncovertebral joint osteoarthritic changes. Bilateral narrowing of the foramina at the level of C3-C4, C4-C5, C5-C6, C6-C7 and C7-T1. PARASPINOUS SOFT TISSUES: Calcification in the right carotid artery. Enlarged left lobe of the thyroi d with nodules. Ultrasound evaluation advised. IMPRESSION: No acute osseous abnormality cervical spine. Multilevel degenerative disc disease with variable degrees of intervertebral foraminal narrowing with nerve root compression. Enlarged left lobe of the thyroid. Ultrasound evaluation advised. Reviewed, dictated and finalized at location A. RATION TECHNOLOGIST IMPRESSION: No acute osseous abnormality cervical spine. Multilevel degenerative disc disease with variable degrees of intervertebral fo raminal narrowing with nerve root compression. Enlarged left lobe of the thyroid. Ultrasound evaluation advised.
--- NOTE | ~2024-09-01 | XR_ITS ---
XR hip LT 2V w AP pelvis Ordering provider: Monika Rodríguez MD History: . fall . Comparison: 05/19/2019 FINDINGS: BONES: Left intertrochanteric fracture. No significant displacement. HIP JOINT SPACES: Bilateral moderate osteoarthritic changes. SACROILIAC JOINT SPACES/LUMBAR SPINE: The sacroiliac joint spaces shows bilateral sacroiliacs. Mild d egenerative changes of the visualized lower lumbar spine. PUBIC SYMPHYSIS: Pubic symphysitis.. SOFT TISSUES: Normal. IMPRESSION: Intertrochanteric fracture. Reviewed, dictated and finalized at location A. ND HOST/HOSTESS IMPRESSION: Intertrochanteric fracture.
--- NOTE | ~2024-09-01 | XR_ITS ---
XR chest 1V Ordering provider: Monika Rodríguez MD History: 78 years Female with . hip fx . Comparison: June 04, 2023 FINDINGS: MEDIASTINUM: The cardiac silhouette is moderately enlarged. LUNGS: No effusions or pneumothorax. Minimal opacification in the left lung base which may indicate a telectasis. Clinical correlation advised. OTHER: No free air under the diaphragm. Degenerative changes of the spine. IMPRESSION: Cardiomegaly. Possible atelectasis in the left lung base. Reviewed, dictated and finalized at location A. SSMENT COUNSELOR
[2024-09-01 17:00] VITALS: BP 128/64; PULSE 78; RESP 18; TEMP 36.4; O2SAT 96
--- NOTE | 2024-09-01 17:02 | ECG_ITS ---
Test Date: 2024-09-01 18:33:42 Measurements Intervals [place] Rate: 92 P: 41 [place]: 171 QRS: -57 QRSD: 146 T: 69 QT: 407 QTc: 504 Interpretive Statements SINUS RHYTHM MARKED LEFT AXIS DEVIATION [QRS AXIS < -30] LEFT BUNDLE BRANCH BLOCK [120+ ms QRS DURATION, 80+ ms Q/S IN V1/V2, 85+ ms R IN I/aVL/V5/V6] ABNORMAL ECG No previous ECG available for comparison Electronically Signed On 09-02-2024 10:54:23 METHODS EXAMINER by Sukh Izaguirre M.D.
[2024-09-01] MEDS: MORPHINE SULFATE (*CRX) 4 MG/ML INJ IV PUSH ×2 (17:46→23:27)
[2024-09-01] MEDS: ONDANSETRON INJ 4 MG/2 ML VIAL IV PUSH ×2 (17:46→23:28)
[2024-09-01 19:09] VITALS: BP 130/66; PULSE 97; RESP 18; TEMP 37.2; O2SAT 98
--- NOTE | 2024-09-01 19:13 | ED.FALL ---
HPI - Fall General Chief Complaint: Fall Stated Complaint: FALL Time Seen by Provider: 09/01/24 17:08 Source: patient and EMS Mode of arrival: EMS Limitations: no limitations History of Present Illness HPI Narrative: This is a 78-year-old female that presents to the emergency department for left hip pain after a fall. Reports her young family member was coming up to her to give her a hug. This knocked her off balance and she fell onto her left hip. She is not believe she hit her head. She did not lose consciousness. Reports since she has had left hip pain. She was not able to ambulate. Denies vomiting, focal numbness or weakness. Related Data Home Medications Medication Instructions Recorded Confirmed metoprolol succinate 50 mg 50 mg PO DAILY 03/20/22 06/02/24 tablet,extended release 24 hr duloxetine 20 mg capsule,delayed 30 mg PO DAILY 07/09/22 06/02/24 release folic acid 800 mcg tablet 0.8 mg PO DAILY 07/09/22 06/02/24 omega 5-kfj-ntc-fish oil 100 1 cap PO DAILY 07/09/22 06/02/24 mg-160 mg-1,000 mg capsule (Fish Oil) cholecalciferol (vitamin D3) 25 25 mcg PO DAILY 04/17/23 06/02/24 mcg (1,000 unit) capsule (Vitamin D3) vitamin B complex (B 1 tablet PO EVERY OTHER DAY 04/17/23 06/02/24 Complex-Vitamin B12 tablet) atorvastatin 80 mg tablet 80 mg PO DAILY 05/09/23 06/02/24 aspirin 81 mg tablet,delayed 81 mg PO DAILY 06/02/24 06/02/24 release (Adult Low Dose Aspirin) Allergies Allergy/AdvReac Type Severity Reaction Status Date / Time codeine Allergy Mild Hives Verified 09/01/24 18:31 tramadol AdvReac Mild Agitated Verified 09/01/24 18:31 Review of Systems Review of Systems: CONSTITUTIONAL: Denies fever EYES: Denies visual changes CARDIOVASCULAR: Denies chest pain RESPIRATORY: Denies dyspnea. GASTROINTESTINAL: Denies vomiting MUSCULOSKELETAL: Reports back pain, joint pain, and myalgia. NEUROLOGIC: Denies numbness, or weakness. All systems reviewed & are unremarkable except as noted in HPI and below PMFSH Past Medical History Medical History Abdominal pain, chronic, epigastric Acute upper respiratory infection CAD (coronary artery disease) Diagnosed in April 2015, OM stent Dr. Shay April 2015. Carotid stenosis Left ICA 75% stenosis Cataract Diabetes mellitus Diverticulosis of colon Diverticulosis of large intestine without perforation or abscess without bleeding HTN (hypertension) Hyperlipidemia Ischemic cardiomyopathy Echo 2015 showed dilated LV EF 40%. Paradoxical septal motion from conduction abnormality + anteroseptal akinesis. Diastolic dysfunction. Labile hypertension Low back pain Lumbosacral radiculopathy at L5 Medical non-compliance Melena Normocytic anemia Pancreatic cyst Sinus tachycardia Stage 3 chronic kidney disease Type II diabetes mellitus Uncontrolled type II diabetes mellitus Surgical History Surgical History Cataract extraction status Bilaterally H/O heart artery stent April 2014 H/O: hysterectomy Family History Family History Mother Hypertension Sibling Thyroid cancer Hypertension Sibling Hypertension Sibling Hypertension Sibling Alzheimers disease Social History Social History Social History: BOBBI is her son Louis. The patient had 4 children and 1 of her sons at the age of 21. She raised 1 of her granddaughters and is now raising a great grandson that is 12 years old. She also has a disabled son in his 50s who is living with her. She is and retired from [employer]. Lifelong nonsmoker. She is also taking her elderly mother who is in her 90s. Her mother does not live with her. Smoking status: Never smoker Tobacco type: cigarettes Second hand tobacco smoke exposure: Yes Alcohol intake: former Substance use: never Substance use type: does not use Do You Feel Safe in your Home?: Yes Lack of Transportation: No Lack of Food: Never True Current Housing: I Have Housing Concerned About Future Housing: No Difficulty Paying Gas/Electric Bills: No Difficulty Paying for Meds: No Currently Unemployed: No Education: High School Diploma/GED Difficulty w/ Childcare or Family Care: No Living arrangements: with family Occupation/Education: retired Gender identity (if verbalized by the patient): Female Spiritual care concerns: No Agree to blood products: Yes Exam Narrative: GENERAL: Elderly, well-nourished, and in no acute distress. HEAD: Normocephalic, atraumatic. EYES: PERRLA and EOMI. ENT: Nares clear, no rhinorrhea or epistaxis. Mucous membranes moist. Oropharynx without tonsillar hypertrophy exudate or other lesions. Bilateral TMs pearly avendano non-bulging NECK: Supple. No adenopathy or masses. No carotid bruits or JVD CHEST: Clear to auscultation. No respiratory distress. No wheezes rales or rhonchi HEART: Regular rate and rhythm. No murmur heard. Normal peripheral pulses. ABDOMEN: Soft, nontender, nondistended, normal active bowel sounds. EXTREMITIES: Normal range of motion, except decreased ROM in the left hip with shortening and external rotation. No edema. Normal DP pulse. Normal sensation SKIN: Warm, dry, no rash. NEURO: No focal deficits. Alert and oriented x3. CN II-XII grossly intact PSYCH: Normal mood and affect Course Course Emergency Course: Patient updated on her workup and need for admission Consultations Consultation #1: spoke with hospitalist about patient and workup who accepts admission Date: 09/01/24 Consultation #2: Spoke with orthopedics who will consult Date: 09/01/24 Vital Signs Vital signs: Vital Signs Temperature 97.6 F 09/01/24 17:00 Pulse Rate 78 09/01/24 17:00 Respiratory Rate 18 09/01/24 17:00 Blood Pressure 128/64 09/01/24 17:00 Pulse Oximetry 96 09/01/24 17:00 Temperature 98.6 F 09/01/24 22:04 Pulse Rate 80 09/01/24 22:04 Respiratory Rate 15 09/01/24 22:04 Blood Pressure 124/61 09/01/24 22:04 Pulse Oximetry 97 09/01/24 22:04 MDM - Fall MDM Narrative Medical decision making narrative: Patient presents to the emergency department after a fall today with left hip pain. She is neurovascularly intact. Blood work appears stable. CT brain, cervical spine, lumbar spine without acute findings. Chest x-ray shows cardiomegaly and possible atelectasis. Left hip x-ray shows intertrochanteric fracture. Spoke with hospitalist about patient and workup who accepts admission. Spoke with orthopedics who will consult Patient had a dip in oxygen saturation in the upper 80s and low 90s after receiving pain medication. Currently on 1L NC Differential Diagnosis Differential diagnosis: Likely compression fracture, concussion without loss of consciousness and other (hip fracture, pelvic fracture) Lab Data Attestation: I reviewed the patient's lab results. 09/01/24 18:56 09/01/24 18:56 Labs: Lab Results 09/01/24 Range/Units 18:56 WBC 11.4 H (4.5-10.0) K/mm3 RBC 4.21 (4.2-5.4) M/mm3 Hgb 12.3 (12.0-15.0) g/dL Hct 37.5 (37.0-47.0) % MCV 89.1 (80-100) fl MCH 29.2 (26-34) pg MCHC 32.8 (32-36) g/dl RDW 14.3 (11.5-14.5) % Plt Count 254 (150-375) k/mm3 MPV 10.4 (7.4-10.4) fl Immature Gran % (Auto) 0.8 H (0-0.5) % Neut % (Auto) 77.1 H (45.5-73.1) % Lymph % (Auto) 15.8 L (18.3-44.2) % [place] % (Auto) 3.6 (2.6-8.5) % Eos % (Auto) 2.2 (0-4.4) % Baso % (Auto) 0.5 (0.2-1.2) % Lymph # (Auto) 1.79 (0.9-3.2) K/mm3 [place] # (Auto) 0.4 (0.1-0.6) K/mm3 Eos # (Auto) 0.3 (0-0.3) K/mm3 Baso # (Auto) 0.1 (0.0-0.1) K/mm3 Abs Immat Gran (auto) 0.09 H (0.00-0.031) K/mm3 Absolute Neuts (auto) 8.8 H (1.3-6.7) K/mm3 Absolute Nucleated RBC 0.000 (0.0-0.012) K/mm3 Nucleated RBC % 0.0 (0.0-0.2) % PT 12.7 (11.1-14.7) Seconds INR 0.9 APTT 22.6 (22.3-36.8) Seconds Sodium 141 (137-145) mmol/L Potassium 4.1 (3.4-5.0) mmol/L Chloride 102 (98-107) mmol/L Carbon Dioxide 33 H (22-30) mmol/L Anion Gap 6 (4-12) mmol/L BUN 33 H (7-17) mg/dL Creatinine 1.40 H (0.7-1.0) mg/dL Estim Creat Clear Calc 25 ml/min Estimated GFR 37 L (59 - ) Glucose 261 H (65-110) mg/dL Calcium 9.3 (8.4-10.2) mg/dL Total Bilirubin 0.6 (0.2-1.3) mg/dL AST 35 (14-36) U/L ALT 32 (6-35) U/L Alkaline Phosphatase 59 (38-126) U/L Troponin I 0.019 (0.000-0.034) ng/mL Total Protein 6.0 L (6.3-8.2) g/dL Albumin 3.8 (3.5-5.1) g/dL Blood Type B Positive Antibody Screen Negative Imaging Data Radiologist's impression: ITS Impressions Chest X-Ray 09/01/24 17:39 IMPRESSION: Cardiomegaly. Possible atelectasis in the left lung base. Hip/Pelvis X-Ray 09/01/24 17:48 IMPRESSION: Intertrochanteric fracture. Head CT 09/01/24 17:59 IMPRESSION: No acute intracranial findings. Cervical Spine CT 09/01/24 19:29 IMPRESSION: No acute osseous abnormality cervical spine. Multilevel degenerative disc disease with variable degrees of intervertebral foraminal narrowing with nerve root compression. Enlarged left lobe of the thyroid. Ultrasound evaluation advised. ECG Data EKG #1: ECG completion date: 09/01/24 EKG Interpretation: normal rate, sinus rhythm, LBBB and no acute changes (compared to ekg 06/22, LBBB is not new) Critical Care Time Critical Care Time Critical Care Time: No Discharge Plan Discharge Clinical Impression: Closed intertrochanteric fracture of left hip Qualifiers: Encounter type: initial encounter Fracture alignment: nondisplaced Qualified Code(s): S72.145A - Nondisplaced intertrochanteric fracture of left femur, initial encounter for closed fracture Patient Disposition: Still a Patient Condition: Stable Prescriptions: No Action folic acid 800 mcg tablet 0.8 mg PO DAILY duloxetine 20 mg capsule,delayed release(DR/EC) 30 mg PO DAILY Fish Oil 100-160-1,000 mg capsule 1 cap PO DAILY atorvastatin 80 mg tablet 80 mg PO DAILY Ozempic 1 mg/dose (4 mg/3 mL) pen injector 1 mg subcut WEEKLY 90 Days Qty: 9 4RF aspirin [Adult Low Dose Aspirin] 81 mg tablet,delayed release (DR/EC) 81 mg PO DAILY metoprolol succinate 50 mg tablet extended release 24 hr 50 mg PO DAILY vitamin B complex [B Complex-Vitamin B12] Tablet 1 tablet PO EVERY OTHER DAY Rx Instructions: 1000 mg every other day cholecalciferol (vitamin D3) [Vitamin D3] 25 mcg (1,000 unit) Capsule 25 mcg PO DAILY furosemide 40 mg tablet See Rx Instructions .ROUTE .COMPLEX Qty: 90 2RF Dose Instruction: TAKE 1 TABLET BY MOUTH DAILY Rx Instructions: TAKE 1 TABLET BY MOUTH DAILY (DME) FreeStyle Anne-Marie 2 Sensor Kit See Rx Instructions .Route Qty: 6 1RF Rx Instructions: Use to monitor glucose; change every 14 days dapagliflozin propanediol [Farxiga] 10 mg tablet 10 mg PO DAILY Qty: 90 1RF Follow-up/Referrals: Neftali Torres MD [Primary Care Provider] -
[2024-09-01 19:29] LABS: Basophils Absolute Auto 0.1 K/mm3 (0.0-0.1); Basophils Percent Auto 0.5 % (0.2-1.2); Eosinophils Absolute Auto 0.3 K/mm3 (0-0.3); Eosinophils Percent Auto 2.2 % (0-4.4); Hematocrit 37.5 % (37.0-47.0); Hemoglobin 12.3 g/dL (12.0-15.0); Immature Granulocyte Absolute 0.09 K/mm3 (0.00-0.031); Immature Granulocyte Percent A 0.8 % (0-0.5); Lymphocytes Absolute Auto 1.79 K/mm3 (0.9-3.2); Lymphocytes Percent Auto 15.8 % (18.3-44.2); Mean Corpuscular HGB Conc 32.8 g/dl (32-36); Mean Corpuscular Hemoglobin 29.2 pg (26-34); Mean Corpuscular Volume 89.1 fl (80-100); Mean Platelet Volume 10.4 fl (7.4-10.4); Monocytes Absolute Auto 0.4 K/mm3 (0.1-0.6); Monocytes Percent Auto 3.6 % (2.6-8.5); Neutrophils Absolute Auto 8.8 K/mm3 (1.3-6.7); Neutrophils Percent Auto 77.1 % (45.5-73.1); Platelet Count Result 254 k/mm3 (150-375); Red Blood Count 4.21 M/mm3 (4.2-5.4); Red Cell Distribution Width 14.3 % (11.5-14.5); White Blood Count 11.4 K/mm3 (4.5-10.0)
[2024-09-01 19:41] LABS: Alanine Aminotransferase 32 U/L (6-35); Albumin Level 3.8 g/dL (3.5-5.1); Alkaline Phosphatase 59 U/L (38-126); Anion Gap 6 mmol/L (4-12); Aspartate Amino Transferase 35 U/L (14-36); Bilirubin,Total 0.6 mg/dL (0.2-1.3); Blood Urea Nitrogen 33 mg/dL (7-17); Calcium 9.3 mg/dL (8.4-10.2); Carbon Dioxide 33 mmol/L (22-30); Chloride 102 mmol/L (98-107); Estimated CRCL calculation 25 ml/min; Estimated Glomerular Filt Rate 37; Glucose 261 mg/dL (65-110); Potassium 4.1 mmol/L (3.4-5.0); Sodium 141 mmol/L (137-145)
[2024-09-01 19:43] LABS: INR 0.9; Prothrombin Time 12.7 Seconds (11.1-14.7)
[2024-09-01 19:48] VITALS: BP 132/67; PULSE 88; RESP 13; TEMP 37; O2SAT 95
[2024-09-01 19:55] LABS: Partial Thromboplastin Time 22.6 Seconds (22.3-36.8)
[2024-09-01] MEDS: HYDROmorphone HCL INJ (*CRX) 1 MG/ML SYR 0.5 MG IV PUSH (20:16)
[2024-09-01 20:19] VITALS: BP 139/72; PULSE 85; RESP 14; O2SAT 97
[2024-09-01 20:21] LABS: Troponin I 0.019 ng/mL (0.000-0.034)
[2024-09-01 20:45] VITALS: BP 136/60; PULSE 85; RESP 11; TEMP 37; O2SAT 99
[2024-09-01 22:04] VITALS: BP 124/61; PULSE 80; RESP 15; TEMP 37; O2SAT 97
--- NOTE | 2024-09-01 22:56 | PM.IMHP ---
H&P: HPI History of Present Illness Date/Time: 09/01/24 22:56 Chief Complaint: 1. Fall 2. Left hip pain Narrative: Tran Bryan is a 78yo F with a Mhx significant for CAD s/p PCI, Depression, CKD3, NIDDM, Depression, dyslipidemia. 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 She does not smoke/chew tobacco, drink alcohol or consume recreational/illicit drugs; Work-up findings: WBC 11 Hb 12 PLT 254 Na 141 K 4.1 Cl 102 HCO3 33 AG 6 BUN 33 Cr 1.4 GFR 25 ECG: Sinus rhythm; LAD, LBBB Troponin: 0.019 XR hip+Pelvis: L eft intertrochanteric fracture. No significant displacement. CT head: No acute intracranial findings. CT Cervical spine: No acute osseous abnormality cervical spine. Multilevel degenerative disc disease with variable degrees of intervertebral foraminal narrowing with nerve root compression. Enlarged left lobe of the thyroid. Ultrasound evaluation advised. CT Lumbar spine: No acute osseous abnormality. Tran Bryan will be admitted, evaluated and managed for a left intertrochanteric fracture. Review of Systems Constitutional: Constitutional: Reports no additional constitutional complaints Eyes: Eyes: Reports no additional eye complaints ENT: Reports system reviewed and no additional complaints, except as documented Cardiovascular: Cardiovascular: Reports no additional cardiovascular complaints Respiratory: Respiratory: Reports no additional respiratory complaints Gastrointestinal: Gastrointestinal: Reports no additional gastrointestinal complaints Genitourinary: Genitourinary: Reports no additional female genitourinary complaints Musculoskeletal: Musculoskeletal: Reports arthralgias Integumentary/Breasts: Skin/Breast: Reports system reviewed and no additional complaints, except as docu Neurologic: Reports system reviewed and no additional complaints, except as documented and Reports abnormal gait Psychiatric: Psychiatric: Reports no additional psychiatric complaints, Reports anxiety and Denies confusion PMFSH Past Medical History Medical History Abdominal pain, chronic, epigastric Acute upper respiratory infection CAD (coronary artery disease) Diagnosed in April 2015, OM stent Dr. Shay April 2015. Carotid stenosis Left ICA 75% stenosis Cataract Diabetes mellitus Diverticulosis of colon Diverticulosis of large intestine without perforation or abscess without bleeding HTN (hypertension) Hyperlipidemia Ischemic cardiomyopathy Echo 2015 showed dilated LV EF 40%. Paradoxical septal motion from conduction abnormality + anteroseptal akinesis. Diastolic dysfunction. Labile hypertension Low back pain Lumbosacral radiculopathy at L5 Medical non-compliance Melena Normocytic anemia Pancreatic cyst Sinus tachycardia Stage 3 chronic kidney disease Type II diabetes mellitus Uncontrolled type II diabetes mellitus Surgical History Surgical History Cataract extraction status Bilaterally H/O heart artery stent April 2014 H/O: hysterectomy Family History Family History Mother Hypertension Sibling Thyroid cancer Hypertension Sibling Hypertension Sibling Hypertension Sibling Alzheimers disease Social History Social History Social History: BOBBI is her son Louis. The patient had 4 children and 1 of her sons at the age of 19. She raised 1 of her granddaughters and is now raising a great grandson that is 12 years old. She also has a disabled son in his 50s who is living with her. She is and retired from [employer]. Lifelong nonsmoker. She is also taking her elderly mother who is in her 90s. Her mother does not live with her. Smoking status: Never smoker Second hand tobacco smoke exposure: Yes Alcohol intake: former Substance use: current Substance use type: marijuana Other substance usage details: occasional use Do You Feel Safe in your Home?: Yes Lack of Transportation: No Lack of Food: Never True Current Housing: I Have Housing Concerned About Future Housing: No Difficulty Paying Gas/Electric Bills: No Difficulty Paying for Meds: No Currently Unemployed: No Education: High School Diploma/GED Difficulty w/ Childcare or Family Care: No Living arrangements: with family Occupation/Education: retired Gender identity (if verbalized by the patient): Female Spiritual care concerns: No Agree to blood products: Yes Meds Home Medications and Allergies Home Medications Medication Instructions Recorded Confirmed Type metoprolol succinate 50 mg 50 mg PO DAILY 03/20/22 09/01/24 History tablet,extended release 24 hr duloxetine 20 mg capsule,delayed 30 mg PO DAILY 07/09/22 09/01/24 History release folic acid 800 mcg tablet 0.8 mg PO DAILY 07/09/22 09/01/24 History omega 9-bnv-cgl-fish oil 100 1 cap PO DAILY 07/09/22 09/01/24 History mg-160 mg-1,000 mg capsule (Fish Oil) cholecalciferol (vitamin D3) 25 25 mcg PO DAILY 04/17/23 09/01/24 History mcg (1,000 unit) capsule (Vitamin D3) vitamin B complex (B 1 tablet PO EVERY OTHER DAY 04/17/23 09/01/24 History Complex-Vitamin B12 tablet) atorvastatin 80 mg tablet 80 mg PO DAILY 05/09/23 09/01/24 History semaglutide 1 mg/dose (4 mg/3 mL) 1 mg (0.75 mL) subcut WEEKLY 90 02/20/24 09/01/24 Rx subcutaneous pen injector ([employer]) days #9 mL dapagliflozin propanediol 10 mg 10 mg PO DAILY #90 tabs 04/29/24 09/01/24 Rx tablet (Farxiga) flash glucose sensor (FreeStyle #6 ea 04/29/24 09/01/24 Rx Anne-Marie 2 Sensor kit) aspirin 81 mg tablet,delayed 81 mg PO DAILY 06/02/24 09/01/24 History release (Adult Low Dose Aspirin) furosemide 40 mg tablet 40 mg PO DAILY 09/01/24 09/01/24 History Allergies Allergy/AdvReac Type Severity Reaction Status Date / Time codeine Allergy Mild Hives Verified 09/01/24 18:31 tramadol AdvReac Mild Agitated Verified 09/01/24 18:31 Vital Signs Vital Signs - 24 hr 09/01/24 17:00 09/01/24 19:09 09/01/24 19:48 Temperature 97.6 F 99.0 F 98.6 F Pulse Rate 78 97 88 Respiratory Rate 18 18 13 Blood Pressure 128/64 130/66 132/67 Pulse Oximetry 96 98 95 09/01/24 20:19 09/01/24 20:45 09/01/24 22:04 Temperature 98.6 F 98.6 F Pulse Rate 85 85 80 Respiratory Rate 14 11 L 15 Blood Pressure 139/72 136/60 124/61 Pulse Oximetry 97 99 97 Exam Const: General: in distress HENMT: Mouth: Yes dry mucous membranes Eyes: Sclera: sclerae normal Pupils: Equal, round and reactive pupils present Neck: Neck: supple Thyroid: thyroid normal (enlarged) Resp: Effort & Inspection: normal respiratory effort Cardio: Rate: regular rate Rhythm: regular rhythm GI: GI Palp: Yes Soft to palpation Auscultation: normal bowel sounds Skin: General skin exam: normal color Neuro: Motor exam (neuro): 5/5 motor strength present throughout, Normal motor muscle tone present throughout and Motor abnormalites present Other: reduced A+PROM, left hip Extrem: General: no pedal edema Psych: Mental Status: mental status grossly normal H&P: Results Labs Labs: Short CBC 09/01/24 Range/Units 18:56 WBC 11.4 H (4.5-10.0) K/mm3 Hgb 12.3 (12.0-15.0) g/dL Hct 37.5 (37.0-47.0) % Plt Count 254 (150-375) k/mm3 BMP 09/01/24 18:56 Sodium 141 Potassium 4.1 Chloride 102 Carbon Dioxide 33 H BUN 33 H Creatinine 1.40 H Glucose 261 H Calcium 9.3 Cardiac Enzymes 09/01/24 Range/Units 18:56 Troponin I 0.019 (0.000-0.034) ng/mL Liver Function 09/01/24 Range/Units 18:56 Total Bilirubin 0.6 (0.2-1.3) mg/dL AST 35 (14-36) U/L ALT 32 (6-35) U/L Alkaline Phosphatase 59 (38-126) U/L Albumin 3.8 (3.5-5.1) g/dL Assessment and Plan Assessment and plan (1) Closed intertrochanteric fracture of left hip: Qualifiers: Encounter type: initial encounter Fracture alignment: nondisplaced Qualified Code(s): S72.145A - Nondisplaced intertrochanteric fracture of left femur, initial encounter for closed fracture Code(s): S72.142A - Displaced intertrochanteric fracture of left femur, initial encounter for closed fracture Status: Acute Plan Acute and principal conditions 1. Left intertrochanteric fracture. Post-fall Analgesia; NPO Orthopedic surgery consulted Chronic and stable conditions 1. CJKD3. 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 Dyslipidemia. on Atorvastatin 3. CAD s/p PCI. 4. NIDDM. Basal+correctional insulin regimen Code status. Full Nutrition. NPO VTE Prophylaxis. SCDs; NELY Quality VTE Prophylaxis VTE prophylaxis: mechanical ordered and pharmacologic ordered Hospitalist MIPS Advance Care Plan I have confirmed that the patient's Advanced Care Plan is present, code status is documented, or surrogate decision maker is listed in patient medical record.: Yes Medication Reconciliation I have utilized all available resources to obtain, update and review the patients current medications (includes all prescriptions, OTC, herbals, cannabis, and nutritional supplements).: Yes
[2024-09-02] VITALS (17 sets, daily range): BP systolic 95–135; BP diastolic 50–72; PULSE 81–107; RESP 14–22; TEMP 36.1–37.2; O2SAT 93–100
[2024-09-02] MEDS: SODIUM CHLORIDE 0.9% IV 1,000 ML 100 ML IV CONT ×3 (00:07→21:46)
--- NOTE | 2024-09-02 00:07 | ADMGEN ---
This patient, Tran Bryan, was admitted to Medical Room 340-01. Patient/family oriented to hospital policies and general routines including ID bracelet, bed and alarms, visiting hours, pain management, procedures, bathroom and other care routines, personal items, smoking policy, room service/diet, and visiting hours. Information on how to activate the Rapid Response Team has been discussed. Patient/Family are encouraged to report perceived risks to care and to ask questions if they do not understand what they are told or what they should do.
[2024-09-02] MEDS: MORPHINE SULFATE (*CRX) 4 MG/ML INJ IV PUSH ×3 (04:04→17:45)
[2024-09-02 05:49] LABS: Basophils Absolute Auto 0.1 K/mm3 (0.0-0.1); Basophils Percent Auto 0.5 % (0.2-1.2); Eosinophils Absolute Auto 0.4 K/mm3 (0-0.3); Eosinophils Percent Auto 3.7 % (0-4.4); Hematocrit 36.7 % (37.0-47.0); Hemoglobin 11.4 g/dL (12.0-15.0); Immature Granulocyte Absolute 0.06 K/mm3 (0.00-0.031); Immature Granulocyte Percent A 0.6 % (0-0.5); Lymphocytes Absolute Auto 1.69 K/mm3 (0.9-3.2); Lymphocytes Percent Auto 17.3 % (18.3-44.2); Mean Corpuscular HGB Conc 31.1 g/dl (32-36); Mean Corpuscular Hemoglobin 28.5 pg (26-34); Mean Corpuscular Volume 91.8 fl (80-100); Mean Platelet Volume 10.7 fl (7.4-10.4); Monocytes Absolute Auto 0.4 K/mm3 (0.1-0.6); Monocytes Percent Auto 4.1 % (2.6-8.5); Neutrophils Absolute Auto 7.2 K/mm3 (1.3-6.7); Neutrophils Percent Auto 73.8 % (45.5-73.1); Platelet Count Result 211 k/mm3 (150-375); Red Cell Distribution Width 14.3 % (11.5-14.5); White Blood Count 9.8 K/mm3 (4.5-10.0)
[2024-09-02 06:03] LABS: Alanine Aminotransferase 100 U/L (6-35); Albumin Level 3.2 g/dL (3.5-5.1); Alkaline Phosphatase 61 U/L (38-126); Anion Gap 4 mmol/L (4-12); Aspartate Amino Transferase 123 U/L (14-36); Bilirubin,Total 0.7 mg/dL (0.2-1.3); Blood Urea Nitrogen 29 mg/dL (7-17); Calcium 8.2 mg/dL (8.4-10.2); Carbon Dioxide 30 mmol/L (22-30); Chloride 104 mmol/L (98-107); Estimated CRCL calculation 31 ml/min; Estimated Glomerular Filt Rate 44; Glucose 145 mg/dL (65-110); Potassium 3.7 mmol/L (3.4-5.0); Sodium 138 mmol/L (137-145)
[2024-09-02 08:43] LABS: Glucose Point of Care 157 mg/dl (65-105)
[2024-09-02] MEDS: DOCUSATE SODIUM 100 MG CAPSULE PO ×2 (08:49→21:45)
[2024-09-02] MEDS: HEPARIN SODIUM 5,000 UNITS/ML VIAL 5000 UNITS SUB-Q ×2 (08:49→21:46)
--- NOTE | 2024-09-02 10:37 | PM.CNOR ---
Assessment and Plan Assessment and plan (1) Closed intertrochanteric fracture of left hip: Qualifiers: Encounter type: initial encounter Fracture alignment: nondisplaced Qualified Code(s): S72.145A - Nondisplaced intertrochanteric fracture of left femur, initial encounter for closed fracture Code(s): S72.142A - Displaced intertrochanteric fracture of left femur, initial encounter for closed fracture Status: Acute Plan Mildly displaced intertrochanteric fracture of the left hip. Will benefit from internal fixation. Risks, benefits, and alternatives discussed. Surgery has become available today at 13:00. She had subq heparin but this should not pose a significant increased risk of bleeding. Okay to proceed. Proceed with ORIF left hip with cephalomedullary nail. (Arthrex nail) Likely will need several weeks of rehabilitation. History of Present Illness HPI Consult date: 09/02/24 Chief complaint: UTI Narrative: Patient complains of acute hip pain. Fell from standing height. No previous hip pain. Comfortable at rest. No numbness, tingling, or other associated symptoms. Review of Systems Review of Systems: Denies loss of consciousness. All systems reviewed & are unremarkable except as noted in HPI and below PMFSH Past Medical History Medical History Abdominal pain, chronic, epigastric Acute upper respiratory infection CAD (coronary artery disease) Diagnosed in April 2015, OM stent Dr. Shay April 2015. Carotid stenosis Left ICA 75% stenosis Cataract Diabetes mellitus Diverticulosis of colon Diverticulosis of large intestine without perforation or abscess without bleeding HTN (hypertension) Hyperlipidemia Ischemic cardiomyopathy Echo 2015 showed dilated LV EF 40%. Paradoxical septal motion from conduction abnormality + anteroseptal akinesis. Diastolic dysfunction. Labile hypertension Low back pain Lumbosacral radiculopathy at L5 Medical non-compliance Melena Normocytic anemia Pancreatic cyst Sinus tachycardia Stage 3 chronic kidney disease Type II diabetes mellitus Uncontrolled type II diabetes mellitus Surgical History Surgical History Cataract extraction status Bilaterally H/O heart artery stent April 2014 H/O: hysterectomy Family History Family History Mother Hypertension Sibling Thyroid cancer Hypertension Sibling Hypertension Sibling Hypertension Sibling Alzheimers disease Social History Social History Social History: BOBBI is her son Louis. The patient had 4 children and 1 of her sons at the age of 19. She raised 1 of her granddaughters and is now raising a great grandson that is 12 years old. She also has a disabled son in his 50s who is living with her. She is and retired from [employer]. Lifelong nonsmoker. She is also taking her elderly mother who is in her 90s. Her mother does not live with her. Smoking status: Never smoker Second hand tobacco smoke exposure: Yes Alcohol intake: former Substance use: current Substance use type: marijuana Other substance usage details: occasional use Do You Feel Safe in your Home?: Yes Lack of Transportation: No Lack of Food: Never True Current Housing: I Have Housing Concerned About Future Housing: No Difficulty Paying Gas/Electric Bills: No Difficulty Paying for Meds: No Currently Unemployed: No Education: High School Diploma/GED Difficulty w/ Childcare or Family Care: No Living arrangements: with family Occupation/Education: retired Gender identity (if verbalized by the patient): Female Spiritual care concerns: No Agree to blood products: Yes Meds Home Medications and Allergies Home Medications Medication Instructions Recorded Confirmed Type metoprolol succinate 50 mg 50 mg PO DAILY 03/20/22 09/01/24 History tablet,extended release 24 hr duloxetine 20 mg capsule,delayed 30 mg PO DAILY 07/09/22 09/01/24 History release folic acid 800 mcg tablet 0.8 mg PO DAILY 07/09/22 09/01/24 History omega 5-wsq-svs-fish oil 100 1 cap PO DAILY 07/09/22 09/01/24 History mg-160 mg-1,000 mg capsule (Fish Oil) cholecalciferol (vitamin D3) 25 25 mcg PO DAILY 04/17/23 09/01/24 History mcg (1,000 unit) capsule (Vitamin D3) vitamin B complex (B 1 tablet PO EVERY OTHER DAY 04/17/23 09/01/24 History Complex-Vitamin B12 tablet) atorvastatin 80 mg tablet 80 mg PO DAILY 05/09/23 09/01/24 History semaglutide 1 mg/dose (4 mg/3 mL) 1 mg (0.75 mL) subcut WEEKLY 90 02/20/24 09/01/24 Rx subcutaneous pen injector (Ozempic) days #9 mL dapagliflozin propanediol 10 mg 10 mg PO DAILY #90 tabs 04/29/24 09/01/24 Rx tablet (Farxiga) flash glucose sensor (FreeStyle #6 ea 04/29/24 09/01/24 Rx Anne-Marie 2 Sensor kit) aspirin 81 mg tablet,delayed 81 mg PO DAILY 06/02/24 09/01/24 History release (Adult Low Dose Aspirin) furosemide 40 mg tablet 40 mg PO DAILY 09/01/24 09/01/24 History Allergies Allergy/AdvReac Type Severity Reaction Status Date / Time codeine Allergy Mild Hives Verified 09/01/24 18:31 tramadol AdvReac Mild Agitated Verified 09/01/24 18:31 Vital Signs Vital Signs - 24 hr 09/01/24 17:00 09/01/24 19:09 09/01/24 19:48 Temperature 36.4 C 37.2 C 37.0 C Pulse Rate 78 97 88 Respiratory Rate 18 18 13 Blood Pressure 128/64 130/66 132/67 Pulse Oximetry 96 98 95 Oxygen Delivery Oxygen Flow Rate 09/01/24 20:19 09/01/24 20:45 09/01/24 22:04 Temperature 37.0 C 37.0 C Pulse Rate 85 85 80 Respiratory Rate 14 11 L 15 Blood Pressure 139/72 136/60 124/61 Pulse Oximetry 97 99 97 Oxygen Delivery Oxygen Flow Rate 09/02/24 00:20 09/02/24 01:29 09/02/24 05:48 Temperature 36.1 C L 36.4 C L Pulse Rate 81 85 Respiratory Rate 16 16 Blood Pressure 128/52 L 118/51 L Pulse Oximetry 98 94 93 Oxygen Delivery Nasal Cannula Oxygen Flow Rate 1 09/02/24 08:00 Temperature Pulse Rate 85 Respiratory Rate 16 Blood Pressure Pulse Oximetry 93 Oxygen Delivery Nasal Cannula Oxygen Flow Rate 2 Exam Narrative: Lower extremity shortened and externally rotated. Const: General: no acute distress Eyes: General: appearance normal, both eyes and all related structures Resp: Effort & Inspection: normal respiratory effort GI: GI Palp: Yes Soft to palpation and No Guarding due to palpation present (GI) Urinary Catheter: Urinary Catheter: patent and draining and urine clear Skin: General skin exam: no rashes or lesions noted Neuro: Speech: normal speech Other: Wiggles toes well. Capillary refill brisk. Distal light touch sensation intact. Dorsalis pedis pulse palpable. Extrem: Other: No edema. Psych: Mental Status: mental status grossly normal Results Labs 09/02/24 05:16 09/02/24 05:16 Labs: Abnormal lab results 09/01/24 09/02/24 09/02/24 Range/Units 18:56 05:16 08:41 WBC 11.4 H (4.5-10.0) K/mm3 RBC 4.00 L (4.2-5.4) M/mm3 Hgb 11.4 L (12.0-15.0) g/dL Hct 36.7 L (37.0-47.0) % MCHC 31.1 L (32-36) g/dl MPV 10.7 H (7.4-10.4) fl Immature Gran % (Auto) 0.8 H 0.6 H (0-0.5) % Neut % (Auto) 77.1 H 73.8 H (45.5-73.1) % Lymph % (Auto) 15.8 L 17.3 L (18.3-44.2) % Eos # (Auto) 0.4 H (0-0.3) K/mm3 Abs Immat Gran (auto) 0.09 H 0.06 H (0.00-0.031) K/mm3 Absolute Neuts (auto) 8.8 H 7.2 H (1.3-6.7) K/mm3 Carbon Dioxide 33 H (22-30) mmol/L BUN 33 H 29 H (7-17) mg/dL Creatinine 1.40 H 1.20 H (0.7-1.0) mg/dL Estimated GFR 37 L 44 L (59 - ) Glucose 261 H 145 H (65-110) mg/dL POC Capillary Glucose 157 H (65-105) mg/dl Calcium 8.2 L (8.4-10.2) mg/dL AST 123 H (14-36) U/L ALT 100 H (6-35) U/L Total Protein 6.0 L 6.0 L (6.3-8.2) g/dL Albumin 3.2 L (3.5-5.1) g/dL H & H 09/01/24 09/02/24 Range/Units 18:56 05:16 Hgb 12.3 11.4 L (12.0-15.0) g/dL Hct 37.5 36.7 L (37.0-47.0) % Coagulation 09/01/24 Range/Units 18:56 INR 0.9 All other labs normal. Quality VTE Prophylaxis VTE prophylaxis: mechanical ordered
--- NOTE | 2024-09-02 11:30 | PM.IMPN ---
Progress Note: A&P Assessment and Plan (1) Closed intertrochanteric fracture of left hip: Qualifiers: Encounter type: initial encounter Fracture alignment: nondisplaced Qualified Code(s): S72.145A - Nondisplaced intertrochanteric fracture of left femur, initial encounter for closed fracture Code(s): S72.142A - Displaced intertrochanteric fracture of left femur, initial encounter for closed fracture Status: Acute Assessment and Plan: Surgery today: ORIF left femur intertrochanteric fracture with cephalomedullary nail. Pain regimen: Tylenol, Oxycodone IR, or Morphine IV Ancef 2 grams IVPB q 8. PT/OT Plan Acute and principal conditions 1. Left intertrochanteric fracture. Post-fall Analgesia; NPO Orthopedic surgery consulted Chronic and stable conditions 1. CJKD3. 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 Dyslipidemia. on Atorvastatin 3. CAD s/p PCI. 4. NIDDM. Basal+correctional insulin regimen Code status. Full Nutrition. NPO VTE Prophylaxis. SCDs; NELY Subjective Date/time seen: 09/02/24 11:30 Interval history: Patient reports pain in left hip is a 9 , constant, and sharp. Pain subsided with Morphine. Patient denies chest pain, palpitations, headache, dizziness, nausea, or vomiting. Review of Systems Review of Systems: All systems reviewed & are unremarkable except as noted in HPI and below Exam Const: General: no acute distress and uncomfortable Eyes: Sclera: sclerae normal Resp: Effort & Inspection: normal respiratory effort Auscultation: clear to auscultation bilaterally Cardio: Rate: regular rate Rhythm: regular rhythm GI: GI Palp: Yes Soft to palpation Auscultation: normal bowel sounds Skin: General skin exam: normal color Neuro: Speech: normal speech Extrem: General: no pedal edema Psych: Mental Status: mental status grossly normal Affect: normal affect Objective Data Vital Signs Vital Signs: Vital Signs - 24 hr 09/01/24 17:00 09/01/24 19:09 09/01/24 19:48 Temperature 97.6 F 99.0 F 98.6 F Pulse Rate 78 97 88 Respiratory Rate 18 18 13 Blood Pressure 128/64 130/66 132/67 Pulse Oximetry 96 98 95 Oxygen Delivery Oxygen Flow Rate 09/01/24 20:19 09/01/24 20:45 09/01/24 22:04 Temperature 98.6 F 98.6 F Pulse Rate 85 85 80 Respiratory Rate 14 11 L 15 Blood Pressure 139/72 136/60 124/61 Pulse Oximetry 97 99 97 Oxygen Delivery Oxygen Flow Rate 09/02/24 00:20 09/02/24 01:29 09/02/24 05:48 Temperature 97.0 F L 97.5 F L Pulse Rate 81 85 Respiratory Rate 16 16 Blood Pressure 128/52 L 118/51 L Pulse Oximetry 98 94 93 Oxygen Delivery Nasal Cannula Oxygen Flow Rate 1 09/02/24 08:00 Temperature Pulse Rate 85 Respiratory Rate 16 Blood Pressure Pulse Oximetry 93 Oxygen Delivery Nasal Cannula Oxygen Flow Rate 2 Intake/Output Intake/Output: Intake & Output 08/30/24 08/31/24 09/01/24 09/02/24 23:59 23:59 23:59 23:59 Intake Total 880 Output Total 200 Balance 680 Meds/Results Medications: Active Medications Generic Name Dose Route Start Last Admin Trade Name Freq PRN Reason Stop Dose Admin Acetaminophen 650 mg 09/01/24 22:42 Acetaminophen 325 Mg Tablet PO Q4H PRN Mild Pain (1-3) or Fever Atorvastatin Calcium 80 mg 09/02/24 09:00 Atorvastatin 40 Mg Tablet PO DAILY NELY Bisacodyl 10 mg 09/01/24 22:42 Bisacodyl 10 Mg Suppository RECTAL ONCE PRN Constipation Dextrose 12.5 gm 09/02/24 09:19 Dextrose 50% 25 Gm/50 Ml Syringe IV PUSH PRN PRN Hypoglycemia Protocol Docusate Sodium 100 mg 09/02/24 09:00 09/02/24 08:49 Docusate Sodium 100 Mg Capsule PO 100 mg Q12HR NELY Administration Duloxetine HCl 30 mg 09/02/24 09:00 Duloxetine Hcl 30 Mg Capsule.Dr PO DAILY NELY Fish Oil 1 gm 09/02/24 09:00 [place] 3 Polyunsat Fatty Acids 1 Gm Cap PO QAM NELY Folic Acid 0.8 mg 09/02/24 09:00 Folic Acid 0.4 Mg Tablet PO DAILY NELY Glucagon 1 mg 09/02/24 09:19 Glucagon For Inj 1 Mg Vial IM PRN PRN Hypoglycemia Protocol Glucose 15 gm 09/02/24 09:19 Glucose Oral Gel 15 Gm Of Glucse In 37.5 Gm Tube PO PRN PRN Hypoglycemia Protocol Heparin Sodium (Porcine) 5,000 units 09/02/24 09:00 09/02/24 08:49 Heparin Sodium 5,000 Units/Ml Vial SUB-Q 5,000 units Q12HR NELY Administration Sodium Chloride 1,000 mls @ 100 mls/hr 09/01/24 22:45 09/02/24 08:55 Normal Saline Iv IV CONT 100 mls/hr .Q10H NELY Administration Dextrose 1,000 mls @ 100 mls/hr 09/02/24 09:19 Dextrose 5% 1,000 Ml IVPB PRN PRN Hypoglycemia Protocol Insulin Aspart 3 - 6 units 09/02/24 12:00 Insulin Aspart (*Bkc) 100 Units/Ml SUB-Q TIDWM [facility] Protocol Insulin Aspart 1 - 3 units 09/02/24 21:00 Insulin Aspart (*Bkc) 100 Units/Ml SUB-Q HS [facility] Protocol Metoprolol Succinate 50 mg 09/02/24 09:00 Metoprolol Succinate Ext Rel 50 Mg Tabcr PO DAILY [facility] Morphine Sulfate 4 mg 09/01/24 22:11 09/02/24 08:57 Morphine Sulfate (*Crx) 4 Mg/Ml Inj IV PUSH 4 mg Q4H PRN Administration Pain Rated 7-10 Ondansetron HCl 4 mg 09/01/24 22:42 09/01/24 23:28 Ondansetron Inj 4 Mg/2 Ml Vial IV PUSH 4 mg Q6H PRN Administration Nausea And Vomiting Vitamin B Complex 1 cap 09/02/24 09:00 Vitamin B Complex Capsule PO Q48H [facility] Vitamin D 1,000 units 09/02/24 09:00 Cholecalciferol 1,000 Units Tablet PO DAILY [facility] Radiology Results: ITS Impressions Chest X-Ray 09/01/24 17:39 IMPRESSION: Cardiomegaly. Possible atelectasis in the left lung base. Hip/Pelvis X-Ray 09/01/24 17:48 IMPRESSION: Intertrochanteric fracture. Head CT 09/01/24 17:59 IMPRESSION: No acute intracranial findings. Cervical Spine CT 09/01/24 19:29 IMPRESSION: No acute osseous abnormality cervical spine. Multilevel degenerative disc disease with variable degrees of intervertebral foraminal narrowing with nerve root compression. Enlarged left lobe of the thyroid. Ultrasound evaluation advised. Lumbar Spine CT 09/01/24 21:36 IMPRESSION: No acute osseous abnormality . Multilevel degenerative disc disease. Labs Labs: Laboratory Results - last 24 hr 09/01/24 09/02/24 09/02/24 18:56 05:16 08:41 WBC 11.4 H 9.8 RBC 4.21 4.00 L Hgb 12.3 11.4 L Hct 37.5 36.7 L MCV 89.1 91.8 MCH 29.2 28.5 MCHC 32.8 31.1 L RDW 14.3 14.3 Plt Count 254 211 MPV 10.4 10.7 H Immature Gran % (Auto) 0.8 H 0.6 H Neut % (Auto) 77.1 H 73.8 H Lymph % (Auto) 15.8 L 17.3 L [place] % (Auto) 3.6 4.1 Eos % (Auto) 2.2 3.7 Baso % (Auto) 0.5 0.5 Lymph # (Auto) 1.79 1.69 [place] # (Auto) 0.4 0.4 Eos # (Auto) 0.3 0.4 H Baso # (Auto) 0.1 0.1 Abs Immat Gran (auto) 0.09 H 0.06 H Absolute Neuts (auto) 8.8 H 7.2 H Absolute Nucleated RBC 0.000 0.000 Nucleated RBC % 0.0 0.0 PT 12.7 INR 0.9 APTT 22.6 Sodium 141 138 Potassium 4.1 3.7 Chloride 102 104 Carbon Dioxide 33 H 30 Anion Gap 6 4 BUN 33 H 29 H Creatinine 1.40 H 1.20 H Estim Creat Clear Calc 25 31 Estimated GFR 37 L 44 L Glucose 261 H 145 H POC Capillary Glucose 157 H Calcium 9.3 8.2 L Total Bilirubin 0.6 0.7 AST 35 123 H ALT 32 100 H Alkaline Phosphatase 59 61 Troponin I 0.019 Total Protein 6.0 L 6.0 L Albumin 3.8 3.2 L Blood Type B Positive Antibody Screen Negative Quality VTE Prophylaxis VTE prophylaxis: mechanical ordered
[2024-09-02 12:09] LABS: Glucose Point of Care 139 mg/dl (65-105)
--- NOTE | 2024-09-02 13:06 | WPDHPUPDATE1 ---
History and Physical Update Update Date/Time: 09/02/24 13:06 History and Physical has been reviewed, including an updated exam of the patient. There are NO changes in the patient's condition. Risks, benefits, and alternatives have been discussed and questions answered. Patient agrees to proceed with procedure.
[2024-09-02] MEDS: LACTATED RINGERS 1,000 ML 30 ML IV CONT (13:10)
[2024-09-02] MEDS: TRANEXAMIC ACID 1,000MG/ISO100 1,000 MG/100 ML BAG 200 MG IVPB (13:16)
[2024-09-02 13:28] LABS: Glucose Point of Care 131 mg/dl (65-105)
--- NOTE | 2024-09-02 14:04 | P.PNAN_ITS ---
Anes - Initial Pre Proc Eval Procedure: Operation Date: 09/02/24 13:00 Proposed Procedures p Left Intertrochanteric Nail - Roque Culver MD Date/Time: 09/02/24 14:04 Surgeon: Payam Langley MD Pre Op Diagnosis: UTI Patient Data Age: 78 Gender: F Height: 1.52 m Weight: 69.1 kg Last Vital Signs Temp 36.4 C L 09/02/24 05:48 Pulse 85 09/02/24 08:00 Resp 16 09/02/24 08:00 BP 118/51 L 09/02/24 05:48 Pulse Ox 95 09/02/24 12:44 O2 Del Method Nasal Cannula 09/02/24 12:44 O2 Flow Rate 2 09/02/24 12:44 Allergies Allergy/AdvReac Type Severity Reaction Status Date / Time codeine Allergy Mild Hives Verified 09/01/24 18:31 tramadol AdvReac Mild Agitated Verified 09/01/24 18:31 Home Medications Medication Instructions Recorded Confirmed Type metoprolol succinate 50 mg 50 mg PO DAILY 03/20/22 09/01/24 History tablet,extended release 24 hr duloxetine 20 mg capsule,delayed 30 mg PO DAILY 07/09/22 09/01/24 History release folic acid 800 mcg tablet 0.8 mg PO DAILY 07/09/22 09/01/24 History omega 2-cvl-yfo-fish oil 100 1 cap PO DAILY 07/09/22 09/01/24 History mg-160 mg-1,000 mg capsule (Fish Oil) cholecalciferol (vitamin D3) 25 25 mcg PO DAILY 04/17/23 09/01/24 History mcg (1,000 unit) capsule (Vitamin D3) vitamin B complex (B 1 tablet PO EVERY OTHER DAY 04/17/23 09/01/24 History Complex-Vitamin B12 tablet) atorvastatin 80 mg tablet 80 mg PO DAILY 05/09/23 09/01/24 History semaglutide 1 mg/dose (4 mg/3 mL) 1 mg (0.75 mL) subcut WEEKLY 90 02/20/24 09/01/24 Rx subcutaneous pen injector (Ozempic) days #9 mL dapagliflozin propanediol 10 mg 10 mg PO DAILY #90 tabs 04/29/24 09/01/24 Rx tablet (Farxiga) flash glucose sensor ([place]uz[place]ayle #6 ea 04/29/24 09/01/24 Rx Anne-Marie 2 Sensor kit) aspirin 81 mg tablet,delayed 81 mg PO DAILY 06/02/24 09/01/24 History release (Adult Low Dose Aspirin) furosemide 40 mg tablet 40 mg PO DAILY 09/01/24 09/01/24 History Laboratory Tests 09/01/24 09/02/24 09/02/24 18:56 05:16 08:41 WBC 11.4 H K/mm3 9.8 K/mm3 (4.5-10.0) (4.5-10.0) RBC 4.21 M/mm3 4.00 L M/mm3 (4.2-5.4) (4.2-5.4) Hgb 12.3 g/dL 11.4 L g/dL (12.0-15.0) (12.0-15.0) Hct 37.5 % 36.7 L % (37.0-47.0) (37.0-47.0) MCV 89.1 fl 91.8 fl (80-100) (80-100) MCH 29.2 pg 28.5 pg (26-34) (26-34) MCHC 32.8 g/dl 31.1 L g/dl (32-36) (32-36) RDW 14.3 % 14.3 % (11.5-14.5) (11.5-14.5) Plt Count 254 k/mm3 211 k/mm3 (150-375) (150-375) MPV 10.4 fl 10.7 H fl (7.4-10.4) (7.4-10.4) Immature Gran % (Auto) 0.8 H % 0.6 H % (0-0.5) (0-0.5) Neut % (Auto) 77.1 H % 73.8 H % (45.5-73.1) (45.5-73.1) Lymph % (Auto) 15.8 L % 17.3 L % (18.3-44.2) (18.3-44.2) [place] % (Auto) 3.6 % 4.1 % (2.6-8.5) (2.6-8.5) Eos % (Auto) 2.2 % 3.7 % (0-4.4) (0-4.4) Baso % (Auto) 0.5 % 0.5 % (0.2-1.2) (0.2-1.2) Lymph # (Auto) 1.79 K/mm3 1.69 K/mm3 (0.9-3.2) (0.9-3.2) [place] # (Auto) 0.4 K/mm3 0.4 K/mm3 (0.1-0.6) (0.1-0.6) Eos # (Auto) 0.3 K/mm3 0.4 H K/mm3 (0-0.3) (0-0.3) Baso # (Auto) 0.1 K/mm3 0.1 K/mm3 (0.0-0.1) (0.0-0.1) Abs Immat Gran (auto) 0.09 H K/mm3 0.06 H K/mm3 (0.00-0.031) (0.00-0.031) Absolute Neuts (auto) 8.8 H K/mm3 7.2 H K/mm3 (1.3-6.7) (1.3-6.7) Absolute Nucleated RBC 0.000 K/mm3 0.000 K/mm3 (0.0-0.012) (0.0-0.012) Nucleated RBC % 0.0 % 0.0 % (0.0-0.2) (0.0-0.2) PT 12.7 Seconds (11.1-14.7) INR 0.9 APTT 22.6 Seconds (22.3-36.8) Sodium 141 mmol/L 138 mmol/L (137-145) (137-145) Potassium 4.1 mmol/L 3.7 mmol/L (3.4-5.0) (3.4-5.0) Chloride 102 mmol/L 104 mmol/L (98-107) (98-107) Carbon Dioxide 33 H mmol/L 30 mmol/L (22-30) (22-30) Anion Gap 6 mmol/L 4 mmol/L (4-12) (4-12) BUN 33 H mg/dL 29 H mg/dL (7-17) (7-17) Creatinine 1.40 H mg/dL 1.20 H mg/dL (0.7-1.0) (0.7-1.0) Estim Creat Clear Calc 25 ml/min 31 ml/min Estimated GFR 37 L 44 L (59 - ) (59 - ) Glucose 261 H mg/dL 145 H mg/dL (65-110) (65-110) POC Capillary Glucose 157 H mg/dl (65-105) Calcium 9.3 mg/dL 8.2 L mg/dL (8.4-10.2) (8.4-10.2) Total Bilirubin 0.6 mg/dL 0.7 mg/dL (0.2-1.3) (0.2-1.3) AST 35 U/L 123 H U/L (14-36) (14-36) ALT 32 U/L 100 H U/L (6-35) (6-35) Alkaline Phosphatase 59 U/L 61 U/L (38-126) (38-126) Troponin I 0.019 ng/mL (0.000-0.034) Total Protein 6.0 L g/dL 6.0 L g/dL (6.3-8.2) (6.3-8.2) Albumin 3.8 g/dL 3.2 L g/dL (3.5-5.1) (3.5-5.1) Blood Type B Positive Antibody Screen Negative 09/02/24 09/02/24 12:07 13:26 WBC RBC Hgb Hct MCV MCH MCHC RDW Plt Count MPV Immature Gran % (Auto) Neut % (Auto) Lymph % (Auto) [place] % (Auto) Eos % (Auto) Baso % (Auto) Lymph # (Auto) [place] # (Auto) Eos # (Auto) Baso # (Auto) Abs Immat Gran (auto) Absolute Neuts (auto) Absolute Nucleated RBC Nucleated RBC % PT INR APTT Sodium Potassium Chloride Carbon Dioxide Anion Gap BUN Creatinine Estim Creat Clear Calc Estimated GFR Glucose POC Capillary Glucose 139 H mg/dl 131 H mg/dl (65-105) (65-105) Calcium Total Bilirubin AST ALT Alkaline Phosphatase Troponin I Total Protein Albumin Blood Type Antibody Screen Patient hx anesthesia problems: none Family hx anesthesia problems: none Results Review: All pre-operative results and documents have been reviewed as part of the pre- operative evaluation. [facility] Past Medical History Medical History Abdominal pain, chronic, epigastric Acute upper respiratory infection CAD (coronary artery disease) Diagnosed in April 2015, OM stent Dr. Shay April 2015. Carotid stenosis Left ICA 75% stenosis Cataract Diabetes mellitus Diverticulosis of colon Diverticulosis of large intestine without perforation or abscess without bleeding HTN (hypertension) Hyperlipidemia Ischemic cardiomyopathy Echo 2015 showed dilated LV EF 40%. Paradoxical septal motion from conduction abnormality + anteroseptal akinesis. Diastolic dysfunction. Labile hypertension Low back pain Lumbosacral radiculopathy at L5 Medical non-compliance Melena Normocytic anemia Pancreatic cyst Sinus tachycardia Stage 3 chronic kidney disease Type II diabetes mellitus Uncontrolled type II diabetes mellitus Surgical History Surgical History Cataract extraction status Bilaterally H/O heart artery stent April 2014 H/O: hysterectomy Family History Family History Mother Hypertension Sibling Thyroid cancer Hypertension Sibling Hypertension Sibling Hypertension Sibling Alzheimers disease Social History Social History Social History: BOBBI is her son Louis. The patient had 4 children and 1 of her sons at the age of 19. She raised 1 of her granddaughters and is now raising a great grandson that is 12 years old. She also has a disabled son in his 50s who is living with her. She is and retired from [employer]. Lifelong nonsmoker. She is also taking her elderly mother who is in her 90s. Her mother does not live with her. Smoking status: Never smoker Second hand tobacco smoke exposure: Yes Alcohol intake: former Substance use: current Substance use type: marijuana Other substance usage details: occasional use Do You Feel Safe in your Home?: Yes Lack of Transportation: No Lack of Food: Never True Current Housing: I Have Housing Concerned About Future Housing: No Difficulty Paying Gas/Electric Bills: No Difficulty Paying for Meds: No Currently Unemployed: No Education: High School Diploma/GED Difficulty w/ Childcare or Family Care: No Living arrangements: with family Occupation/Education: retired Gender identity (if verbalized by the patient): Female Spiritual care concerns: No Agree to blood products: Yes Lucinda - Evkatharine Final PreProcedure Day of Procedure 09/02/24 14:04 Patient weight: overweight Heart: regular rate and rhythm Lungs: clear to auscultation Airway: Mallampati scale class II Neurological: alert and oriented Last oral intake: >/= 8 hours ASA classification: IV Anesthetic plan: proceed Anesthesia type and monitoring: general LMA and standard monitoring Results Review: All pre-operative results and documents have been reviewed as part of the pre- operative evaluation. Informed Consent: The patient's anesthetic plan and its attendant risks and benefits were discussed with the patient/family/POA. Questions were solicited and answers provided to the satisfaction of the patient/family/POA.
[2024-09-02] MEDS: ceFAZolin 2 GM/D5W 50 ML 2 GM/50 ML BAG IVPB ×2 (14:10→21:44)
[2024-09-02 15:53] LABS: Glucose Point of Care 162 mg/dl (65-105)
[2024-09-02] MEDS: fentaNYL CITRATE INJ (*CRX) 100 MCG/2 ML VIAL 25 MCG IV PUSH (16:11)
--- NOTE | 2024-09-02 16:21 | W.PM.PROC2 ---
Procedure Note - Detailed Date of Procedure 09/02/24 Pre-op Diagnosis Mildly displaced intertrochanteric fracture left hip. Post-op Diagnosis Same Procedure Performed ORIF left femur intertrochanteric fracture with cephalomedullary nail. Surgeon Roque Culver MD [employer] Operations Manager Joselin Mahmood PA-C Anesthesia General Findings Good bone quality. Description of Procedure The patient was given a general anesthetic, then carefully placed in fracture table. Sterile prep and drape performed in the usual fashion. Sterile curtain was used. Gentle traction was utilized to reduce the fracture. Fluoroscopy was used to confirm anatomic reduction and a proper placement of the implants. A longitudinal incision was created at the tip of the trochanter. The deep fascia was incised. The cannulated awl was used to open the proximal femur. The guidewire was placed across the fracture. The reamer was used to open the canal. The flexible reamers were then used to open the distal to 11.5 mm. The nail was placed across the fracture site. A separate incision was made for placement of the cannulated guide sleeve. The guide pin was placed in the center of the femoral head. Appropriate measurement was taken. The pin was over reamed. The screw was placed with excellent purchase. The set screw was placed proximally and backed out a quater turn. The jig was removed. The wound was irrigated. The deep fascia was closed with #1 Vicryl suture followed by 2-0 Vicryl suture and ronnell. Sterile dressing was applied. The patient was transferred to the recovery room in stable condition. There were no complications. Implants Arthrex short trochanteric nail 10 mm x 20 cm x 130?. Telescoping lag screw 10.5 x 80 mm. Estimated Blood Loss 150 Drains No Packing No Pathology None sent Complications No immediate complications Condition Stable Disposition PACU [facility] Billing Surgery - Charge Forward: Surgery Billing
[2024-09-02] MEDS: SENNA/DOCUSATE SODIUM TABLET 2 TAB PO (17:42)
[2024-09-02] MEDS: ACETAMINOPHEN 325 MG TABLET 650 MG PO ×2 (17:42→23:59)
[2024-09-02] MEDS: ONDANSETRON INJ 4 MG/2 ML VIAL IV PUSH (17:42)
[2024-09-02 21:11] LABS: Glucose Point of Care 252 mg/dl (65-105)
[2024-09-02] MEDS: FAMOTIDINE 20 MG TABLET PO (21:45)
[2024-09-02] MEDS: INSULIN ASPART (*BKC) 100 UNITS/ML SUB-Q (21:49)
[2024-09-03] VITALS (8 sets, daily range): BP systolic 100–138; BP diastolic 50–70; PULSE 64–86; RESP 16–18; TEMP 36.2–37.2; O2SAT 95–100
[2024-09-03] MEDS: ceFAZolin 2 GM/D5W 50 ML 2 GM/50 ML BAG IVPB ×2 (06:21→13:17)
[2024-09-03] MEDS: ACETAMINOPHEN 325 MG TABLET 650 MG PO ×3 (06:24→17:55)
[2024-09-03] MEDS: oxyCODONE HCL (*CRX) 5 MG TAB IR PO ×3 (06:29→22:09)
[2024-09-03 07:04] LABS: Basophils Absolute Auto 0.1 K/mm3 (0.0-0.1); Basophils Percent Auto 0.6 % (0.2-1.2); Eosinophils Absolute Auto 0.1 K/mm3 (0-0.3); Eosinophils Percent Auto 1.2 % (0-4.4); Hematocrit 35.5 % (37.0-47.0); Hemoglobin 10.6 g/dL (12.0-15.0); Immature Granulocyte Absolute 0.08 K/mm3 (0.00-0.031); Immature Granulocyte Percent A 0.8 % (0-0.5); Lymphocytes Absolute Auto 1.16 K/mm3 (0.9-3.2); Lymphocytes Percent Auto 11.5 % (18.3-44.2); Mean Corpuscular HGB Conc 29.9 g/dl (32-36); Mean Corpuscular Hemoglobin 28.6 pg (26-34); Mean Corpuscular Volume 95.9 fl (80-100); Mean Platelet Volume 11.1 fl (7.4-10.4); Monocytes Absolute Auto 0.5 K/mm3 (0.1-0.6); Monocytes Percent Auto 4.9 % (2.6-8.5); Neutrophils Absolute Auto 8.2 K/mm3 (1.3-6.7); Platelet Count Result 157 k/mm3 (150-375); Red Cell Distribution Width 14.4 % (11.5-14.5); White Blood Count 10.1 K/mm3 (4.5-10.0)
[2024-09-03 07:14] LABS: Alanine Aminotransferase 208 U/L (6-35); Alkaline Phosphatase 58 U/L (38-126); Anion Gap 5 mmol/L (4-12); Aspartate Amino Transferase 148 U/L (14-36); Bilirubin,Total 0.8 mg/dL (0.2-1.3); Blood Urea Nitrogen 25 mg/dL (7-17); Calcium 7.7 mg/dL (8.4-10.2); Carbon Dioxide 23 mmol/L (22-30); Chloride 108 mmol/L (98-107); Estimated CRCL calculation 31 ml/min; Estimated Glomerular Filt Rate 44; Glucose 146 mg/dL (65-110); Potassium 4.4 mmol/L (3.4-5.0); Sodium 136 mmol/L (137-145)
[2024-09-03] MEDS: ONDANSETRON INJ 4 MG/2 ML VIAL IV PUSH ×2 (08:35→14:42)
[2024-09-03 08:52] LABS: Glucose Point of Care 176 mg/dl (65-105)
[2024-09-03 09:11] LABS: Crenated RBC 1+; Platelet Estimate Adequate (Adequate); Schistocytes None Seen
[2024-09-03] MEDS: CHOLECALCIFEROL 1,000 UNITS TABLET 1000 UNITS PO (09:26)
[2024-09-03] MEDS: FAMOTIDINE 20 MG TABLET PO ×2 (09:26→22:10)
[2024-09-03] MEDS: OMEGA 3 POLYUNSAT FATTY ACIDS 1 GM CAP PO (09:26)
[2024-09-03] MEDS: DULoxetine HCL 30 MG CAPSULE.DR PO (09:26)
[2024-09-03] MEDS: ATORVASTATIN 40 MG TABLET 80 MG PO (09:26)
[2024-09-03] MEDS: METOPROLOL SUCCINATE EXT REL 50 MG TABCR PO (09:27)
[2024-09-03] MEDS: DOCUSATE SODIUM 100 MG CAPSULE PO ×2 (09:27→22:09)
[2024-09-03] MEDS: FOLIC ACID 0.4 MG TABLET 0.8 MG PO (09:27)
[2024-09-03] MEDS: SENNA/DOCUSATE SODIUM TABLET 2 TAB PO ×2 (09:27→17:55)
[2024-09-03] MEDS: polyethylene glycoL 3350 17 GM POWD.PACK PO (09:28)
[2024-09-03] MEDS: HEPARIN SODIUM 5,000 UNITS/ML VIAL 5000 UNITS SUB-Q ×2 (09:31→22:10)
--- NOTE | 2024-09-03 11:12 | PM.IMPN ---
Progress Note: A&P Assessment and Plan (1) Closed intertrochanteric fracture of left hip: Qualifiers: Encounter type: initial encounter Fracture alignment: nondisplaced Qualified Code(s): S72.145A - Nondisplaced intertrochanteric fracture of left femur, initial encounter for closed fracture Code(s): S72.142A - Displaced intertrochanteric fracture of left femur, initial encounter for closed fracture Status: Acute Assessment and Plan: Surgery on 09/02/24: ORIF left femur intertrochanteric fracture with cephalomedullary nail. Dressing C/D/I. Pain regimen: Tylenol, Tramadol, Oxycodone IR, or Morphine IV Ancef 2 grams IVPB q 8 for 3 doses post surgery. PT/OT Patient will need rehab at discharge. Plan Acute and principal conditions 1. Left intertrochanteric fracture. Post-fall Analgesia; NPO Orthopedic surgery consulted Chronic and stable conditions 1. CJKD3. 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 Dyslipidemia. on Atorvastatin 3. CAD s/p PCI. 4. NIDDM. Basal+correctional insulin regimen Code status. Full Nutrition. NPO VTE Prophylaxis. SCDs; NELY Subjective Date/time seen: 09/03/24 11:12 Interval history: Patient reports pain in left hip is a 5 , constant, and aching. Patient reports episode of dry heaving and dizziness when up with therapy this morning. Patient reports feeling better after sitting up in a chair, eating, and drinking something. Patient denies chest pain, palpitations, headache, nausea, or vomiting. Review of Systems Review of Systems: All systems reviewed & are unremarkable except as noted in HPI and below Exam Const: General: no acute distress and uncomfortable Resp: Effort & Inspection: normal respiratory effort Auscultation: clear to auscultation bilaterally Cardio: Rate: regular rate Rhythm: regular rhythm GI: GI Palp: Yes Soft to palpation Auscultation: normal bowel sounds Skin: Wounds: wounds noted (Dressing clean, dry, and intact to left hip surgical site. ) Neuro: Speech: normal speech Extrem: General: no pedal edema Other: hands slightly puffy Psych: Mental Status: mental status grossly normal Affect: normal affect Objective Data Vital Signs Vital Signs: Vital Signs - 24 hr 09/02/24 12:44 09/02/24 13:10 09/02/24 15:33 Temperature 99.0 F 97.6 F Pulse Rate 90 103 H Respiratory Rate 18 16 Blood Pressure 127/50 L 135/70 Pulse Oximetry 95 98 99 Oxygen Delivery Nasal Cannula Nasal Cannula Trach Collar Oxygen Flow Rate 2 2 8 09/02/24 15:45 09/02/24 16:00 09/02/24 16:15 Temperature Pulse Rate 104 H 104 H 103 H Respiratory Rate 20 22 H 14 Blood Pressure 125/71 123/72 105/62 Pulse Oximetry 100 99 96 Oxygen Delivery Simple Face Mask Simple Face Mask Nasal Cannula Oxygen Flow Rate 8 8 3 09/02/24 16:30 09/02/24 16:45 09/02/24 17:10 Temperature 97.6 F Pulse Rate 101 H 103 H 100 Respiratory Rate 15 16 16 Blood Pressure 100/61 102/66 109/58 L Pulse Oximetry 97 97 97 Oxygen Delivery Nasal Cannula Nasal Cannula Oxygen Flow Rate 3 3 09/02/24 17:25 09/02/24 17:55 09/02/24 22:09 Temperature 97.4 F L 97.6 F 99.0 F Pulse Rate 107 H 99 91 Respiratory Rate 16 16 16 Blood Pressure 121/57 L 110/60 95/51 L Pulse Oximetry 96 97 98 Oxygen Delivery Oxygen Flow Rate 09/03/24 00:17 09/02/24 20:00 09/03/24 06:45 Temperature 97.7 F 98.9 F Pulse Rate 86 84 Respiratory Rate 16 18 Blood Pressure 107/62 138/55 L Pulse Oximetry 99 99 100 Oxygen Delivery Nasal Cannula Oxygen Flow Rate 3 09/03/24 07:52 09/03/24 09:27 Temperature Pulse Rate 64 Respiratory Rate Blood Pressure Pulse Oximetry Oxygen Delivery Room Air Oxygen Flow Rate Intake/Output Intake/Output: Intake & Output 08/31/24 09/01/24 09/02/24 09/03/24 23:59 23:59 23:59 23:59 Intake Total 1980 600 Output Total 310 550 Balance 1670 50 Meds/Results Medications: Active Medications Generic Name Dose Route Start Last Admin Trade Name Freq PRN Reason Stop Dose Admin Acetaminophen 650 mg 09/02/24 18:00 09/03/24 06:24 Acetaminophen 325 Mg Tablet PO 650 mg Q6HR NELY Administration Atorvastatin Calcium 80 mg 09/02/24 09:00 09/03/24 09:26 Atorvastatin 40 Mg Tablet PO 80 mg DAILY NELY Administration Bisacodyl 10 mg 09/01/24 22:42 Bisacodyl 10 Mg Suppository RECTAL ONCE PRN Constipation Dextrose 12.5 gm 09/02/24 09:19 Dextrose 50% 25 Gm/50 Ml Syringe IV PUSH PRN PRN Hypoglycemia Protocol Docusate Sodium 100 mg 09/02/24 09:00 09/03/24 09:27 Docusate Sodium 100 Mg Capsule PO 100 mg Q12HR NELY Administration Duloxetine HCl 30 mg 09/02/24 09:00 09/03/24 09:26 Duloxetine Hcl 30 Mg Capsule.Dr PO 30 mg DAILY NELY Administration Famotidine 20 mg 09/02/24 21:00 09/03/24 09:26 Famotidine 20 Mg Tablet PO 20 mg Q12HR NELY Administration Fish Oil 1 gm 09/02/24 09:00 09/03/24 09:26 [place] 3 Polyunsat Fatty Acids 1 Gm Cap PO 1 gm QAM NELY Administration Folic Acid 0.8 mg 09/02/24 09:00 09/03/24 09:27 Folic Acid 0.4 Mg Tablet PO 0.8 mg DAILY NELY Administration Glucagon 1 mg 09/02/24 09:19 Glucagon For Inj 1 Mg Vial IM PRN PRN Hypoglycemia Protocol Glucose 15 gm 09/02/24 09:19 Glucose Oral Gel 15 Gm Of Glucse In 37.5 Gm Tube PO PRN PRN Hypoglycemia Protocol Heparin Sodium (Porcine) 5,000 units 09/02/24 09:00 09/03/24 09:31 Heparin Sodium 5,000 Units/Ml Vial SUB-Q 5,000 units Q12HR NELY Administration Dextrose 1,000 mls @ 100 mls/hr 09/02/24 09:19 Dextrose 5% 1,000 Ml IVPB PRN PRN Hypoglycemia Protocol Cefazolin Sodium 2 gm in 50 mls @ 100 mls/hr 09/02/24 22:00 09/03/24 06:21 Ancef 2 Gm/D5w 50 Ml IVPB 09/03/24 14:29 100 mls/hr Q8H NELY Administration Insulin Aspart 3 - 6 units 09/02/24 12:00 09/03/24 09:18 Insulin Aspart (*Bkc) 100 Units/Ml SUB-Q Not Given TIDWM NELY Protocol Insulin Aspart 1 - 3 units 09/02/24 21:00 09/02/24 21:49 Insulin Aspart (*Bkc) 100 Units/Ml SUB-Q 2 units HS NELY Administration Protocol Metoprolol Succinate 50 mg 09/02/24 09:00 09/03/24 09:27 Metoprolol Succinate Ext Rel 50 Mg Tabcr PO 50 mg DAILY NELY Administration Morphine Sulfate 4 mg 09/01/24 22:11 09/02/24 17:45 Morphine Sulfate (*Crx) 4 Mg/Ml Inj IV PUSH 4 mg Q4H PRN Administration Pain Rated 7-10 Naloxone HCl 0.1 mg 09/02/24 17:00 Naloxone Hcl 0.4 Mg/Ml Vial IV PUSH Q2M PRN Opiate Reversal Ondansetron HCl 4 mg 09/01/24 22:42 09/03/24 08:35 Ondansetron Inj 4 Mg/2 Ml Vial IV PUSH 4 mg Q6H PRN Administration Nausea And Vomiting Oxycodone HCl 2.5 mg 09/02/24 17:00 Oxycodone Hcl (*Crx) 2.5 Mg Tab Ir PO Q4H PRN Pain Rated 4-6 Oxycodone HCl 5 mg 09/02/24 17:00 09/03/24 06:29 Oxycodone Hcl (*Crx) 5 Mg Tab Ir PO 5 mg Q4H PRN Administration Pain Rated 7-10 Polyethylene Glycol 17 gm 09/03/24 09:00 09/03/24 09:28 Polyethylene Glycol 3350 17 Gm Powd.Pack PO 17 gm QAM NELY Administration Senna/Docusate Sodium 2 tab 09/02/24 17:00 09/03/24 09:27 Senna/Docusate Sodium Tablet PO 2 tab BID NELY Administration Tramadol HCl 50 mg 09/02/24 17:00 Tramadol Hcl (*Crx) 50 Mg Tablet PO Q4H PRN Pain Rated 1-3 Vitamin B Complex 1 cap 09/02/24 09:00 09/02/24 17:30 Vitamin B Complex Capsule PO Not Given Q48H [facility] Vitamin D 1,000 units 09/02/24 09:00 09/03/24 09:26 Cholecalciferol 1,000 Units Tablet PO 1,000 units DAILY NELY Administration Radiology Results: ITS Impressions Chest X-Ray 09/01/24 17:39 IMPRESSION: Cardiomegaly. Possible atelectasis in the left lung base. Hip/Pelvis X-Ray 09/01/24 17:48 IMPRESSION: Intertrochanteric fracture. Head CT 09/01/24 17:59 IMPRESSION: No acute intracranial findings. Cervical Spine CT 09/01/24 19:29 IMPRESSION: No acute osseous abnormality cervical spine. Multilevel degenerative disc disease with variable degrees of intervertebral foraminal narrowing with nerve root compression. Enlarged left lobe of the thyroid. Ultrasound evaluation advised. Lumbar Spine CT 09/01/24 21:36 IMPRESSION: No acute osseous abnormality . Multilevel degenerative disc disease. Intraoperative X-Ray 09/02/24 15:51 IMPRESSION: 1. Intertrochanteric fracture of proximal left femur status post open reduction internal fixation. Labs Labs: Laboratory Results - last 24 hr 09/02/24 09/02/24 09/02/24 12:07 13:26 15:47 WBC RBC Hgb Hct MCV MCH MCHC RDW Plt Count MPV Immature Gran % (Auto) Neut % (Auto) Lymph % (Auto) [place] % (Auto) Eos % (Auto) Baso % (Auto) Lymph # (Auto) [place] # (Auto) Eos # (Auto) Baso # (Auto) Abs Immat Gran (auto) Absolute Neuts (auto) Absolute Nucleated RBC Nucleated RBC % Platelet Estimate Crenated Cell Schistocytes Sodium Potassium Chloride Carbon Dioxide Anion Gap BUN Creatinine Estim Creat Clear Calc Estimated GFR Glucose POC Capillary Glucose 139 H 131 H 162 H Calcium Total Bilirubin AST ALT Alkaline Phosphatase Total Protein Albumin 09/02/24 09/03/24 09/03/24 20:08 06:17 08:49 WBC 10.1 H RBC 3.70 L Hgb 10.6 L Hct 35.5 L MCV 95.9 MCH 28.6 MCHC 29.9 L RDW 14.4 Plt Count 157 MPV 11.1 H Immature Gran % (Auto) 0.8 H Neut % (Auto) 81.0 H Lymph % (Auto) 11.5 L [place] % (Auto) 4.9 Eos % (Auto) 1.2 Baso % (Auto) 0.6 Lymph # (Auto) 1.16 [place] # (Auto) 0.5 Eos # (Auto) 0.1 Baso # (Auto) 0.1 Abs Immat Gran (auto) 0.08 H Absolute Neuts (auto) 8.2 H Absolute Nucleated RBC 0.000 Nucleated RBC % 0.0 Platelet Estimate Adequate Crenated Cell 1+ Schistocytes None seen Sodium 136 L Potassium 4.4 Chloride 108 H Carbon Dioxide 23 Anion Gap 5 BUN 25 H Creatinine 1.20 H Estim Creat Clear Calc 31 Estimated GFR 44 L Glucose 146 H POC Capillary Glucose 252 H 176 H Calcium 7.7 L Total Bilirubin 0.8 AST 148 H ALT 208 H Alkaline Phosphatase 58 Total Protein 5.0 L Albumin 3.0 L Quality VTE Prophylaxis VTE prophylaxis: mechanical ordered and pharmacologic ordered
[2024-09-03 11:34] LABS: Glucose Point of Care 205 mg/dl (65-105)
[2024-09-03] MEDS: FUROSEMIDE 40 MG TABLET PO (13:17)
[2024-09-03] MEDS: INSULIN ASPART (*BKC) 100 UNITS/ML SUB-Q (13:18)
--- NOTE | 2024-09-03 13:52 | WPDANESPN ---
Anes - Prog Note Post-Op Date/Time: 09/03/24 13:52 Cardiovascular status: normal Respiratory status: normal Airway patency: baseline Mental status: baseline Post-Op hydration status: normal Vital Signs: Last Vital Signs Temp 36.3 C L 09/03/24 10:45 Pulse 71 09/03/24 10:45 Resp 16 09/03/24 10:45 BP 109/69 09/03/24 10:45 Pulse Ox 97 09/03/24 10:45 O2 Del Method Nasal Cannula 09/03/24 08:00 O2 Flow Rate 2 09/03/24 08:00 Pain Score (VAS): 0 I/O: Intake & Output 09/02/24 09/03/24 09/03/24 23:59 07:59 15:59 Intake Total 1050 530 120 Output Total 110 550 Balance 940 -20 120 Laboratory Tests 09/03/24 06:17 09/03/24 06:17 09/02/24 09/02/24 09/03/24 15:47 20:08 06:17 WBC 10.1 H RBC 3.70 L Hgb 10.6 L Hct 35.5 L MCV 95.9 MCH 28.6 MCHC 29.9 L RDW 14.4 Plt Count 157 MPV 11.1 H Immature Gran % (Auto) 0.8 H Neut % (Auto) 81.0 H Lymph % (Auto) 11.5 L [place] % (Auto) 4.9 Eos % (Auto) 1.2 Baso % (Auto) 0.6 Lymph # (Auto) 1.16 [place] # (Auto) 0.5 Eos # (Auto) 0.1 Baso # (Auto) 0.1 Abs Immat Gran (auto) 0.08 H Absolute Neuts (auto) 8.2 H Absolute Nucleated RBC 0.000 Nucleated RBC % 0.0 Platelet Estimate Adequate Crenated Cell 1+ Schistocytes None seen Sodium 136 L Potassium 4.4 Chloride 108 H Carbon Dioxide 23 Anion Gap 5 BUN 25 H Creatinine 1.20 H Estim Creat Clear Calc 31 Estimated GFR 44 L Glucose 146 H POC Capillary Glucose 162 H 252 H Calcium 7.7 L Total Bilirubin 0.8 AST 148 H ALT 208 H Alkaline Phosphatase 58 Total Protein 5.0 L Albumin 3.0 L 09/03/24 09/03/24 08:49 11:32 WBC RBC Hgb Hct MCV MCH MCHC RDW Plt Count MPV Immature Gran % (Auto) Neut % (Auto) Lymph % (Auto) [place] % (Auto) Eos % (Auto) Baso % (Auto) Lymph # (Auto) [place] # (Auto) Eos # (Auto) Baso # (Auto) Abs Immat Gran (auto) Absolute Neuts (auto) Absolute Nucleated RBC Nucleated RBC % Platelet Estimate Crenated Cell Schistocytes Sodium Potassium Chloride Carbon Dioxide Anion Gap BUN Creatinine Estim Creat Clear Calc Estimated GFR Glucose POC Capillary Glucose 176 H 205 H Calcium Total Bilirubin AST ALT Alkaline Phosphatase Total Protein Albumin Post-procedural complaints: none Patient Feedback: Patient satisfied with anesthetic care.
--- NOTE | 2024-09-03 14:06 | P.PNOP_ITS ---
Progress Note: A&P Assessment and Plan (1) Closed intertrochanteric fracture of left hip: Qualifiers: Encounter type: initial encounter Fracture alignment: nondisplaced Qualified Code(s): S72.145A - Nondisplaced intertrochanteric fracture of left femur, initial encounter for closed fracture Code(s): S72.142A - Displaced intertrochanteric fracture of left femur, initial encounter for closed fracture Status: Acute Assessment and Plan: POD #1: ORIF left femur intertrochanteric fracture with cephalomedullary nail. Patient tolerated procedure well. No complications. Pain manageable with pain medication. No numbness or tingling. We had a lengthy discussion regarding postoperative wound care, limitations, expectations, and exercises. Patient shows good understanding. She has had initial physical therapy and is tolerating it well. Patient will benefit from rehab at discharge. Okay for discharge from orthopedic standpoint once medically cleared. Ortho instructions: * D/C to SNF/rehab * Xray and follow up in office in 6 weeks. Please call [facility] to make an appointment. * Wound Care: remove ronnell at 2 weeks post op. Daily dressing changes until healed. * PT: Weight bearing as tolerated. * DVT prophylaxis: continue heparin for 30 days total * Pain medication: Oxycodone Subjective Subjective Date/Time Seen: 09/03/24 14:06 Interval history: Patient resting comfortably. Notes pain worse when sitting up. Pain relieved laying flat. No other complaints. Review of Systems Review of Systems: Pain left hip and leg with movement. Denied pain elsewhere. All systems reviewed & are unremarkable except as noted in HPI and below Exam Narrative: Overweight 78 y/o female. Resting comfortably in bed. Wearing compression socks bilaterally. Dressing dry and intact with no drainage. Mild swelling. No edema. No ecchymosis. No erythema. No hematoma. Range of motion limited due to pain. Calf nontender. Thigh nontender. No varicosities. Distal pulses palpable. Did not wiggle left toes. Objective Data Vital Signs Vital Signs: Vital Signs - 24 hr 09/02/24 15:33 09/02/24 15:45 09/02/24 16:00 Temperature 97.6 F Pulse Rate 103 H 104 H 104 H Respiratory Rate 16 20 22 H Blood Pressure 135/70 125/71 123/72 Pulse Oximetry 99 100 99 Oxygen Delivery Trach Collar Simple Face Mask Simple Face Mask Oxygen Flow Rate 8 8 8 09/02/24 16:15 09/02/24 16:30 09/02/24 16:45 Temperature Pulse Rate 103 H 101 H 103 H Respiratory Rate 14 15 16 Blood Pressure 105/62 100/61 102/66 Pulse Oximetry 96 97 97 Oxygen Delivery Nasal Cannula Nasal Cannula Nasal Cannula Oxygen Flow Rate 3 3 3 09/02/24 17:10 09/02/24 17:25 09/02/24 17:55 Temperature 97.6 F 97.4 F L 97.6 F Pulse Rate 100 107 H 99 Respiratory Rate 16 16 16 Blood Pressure 109/58 L 121/57 L 110/60 Pulse Oximetry 97 96 97 Oxygen Delivery Oxygen Flow Rate 09/02/24 22:09 09/03/24 00:17 09/02/24 20:00 Temperature 99.0 F 97.7 F Pulse Rate 91 86 Respiratory Rate 16 16 Blood Pressure 95/51 L 107/62 Pulse Oximetry 98 99 99 Oxygen Delivery Nasal Cannula Oxygen Flow Rate 3 09/03/24 06:45 09/03/24 07:52 09/03/24 09:27 Temperature 98.9 F Pulse Rate 84 64 Respiratory Rate 18 Blood Pressure 138/55 L Pulse Oximetry 100 Oxygen Delivery Room Air Oxygen Flow Rate 09/03/24 08:00 09/03/24 10:45 Temperature 97.3 F L Pulse Rate 71 Respiratory Rate 16 Blood Pressure 109/69 Pulse Oximetry 96 97 Oxygen Delivery Nasal Cannula Oxygen Flow Rate 2 Intake/Output Intake/Output: Intake & Output 08/31/24 09/01/24 09/02/24 09/03/24 23:59 23:59 23:59 23:59 Intake Total 1980 650 Output Total 310 550 Balance 1670 100 Meds/Results Medications: Active Medications Generic Name Dose Route Start Last Admin Trade Name Freq PRN Reason Stop Dose Admin Acetaminophen 650 mg 09/02/24 18:00 09/03/24 13:17 Acetaminophen 325 Mg Tablet PO 650 mg Q6HR NELY Administration Atorvastatin Calcium 80 mg 09/02/24 09:00 09/03/24 09:26 Atorvastatin 40 Mg Tablet PO 80 mg DAILY NELY Administration Bisacodyl 10 mg 09/01/24 22:42 Bisacodyl 10 Mg Suppository RECTAL ONCE PRN Constipation Dextrose 12.5 gm 09/02/24 09:19 Dextrose 50% 25 Gm/50 Ml Syringe IV PUSH PRN PRN Hypoglycemia Protocol Docusate Sodium 100 mg 09/02/24 09:00 09/03/24 09:27 Docusate Sodium 100 Mg Capsule PO 100 mg Q12HR NELY Administration Duloxetine HCl 30 mg 09/02/24 09:00 09/03/24 09:26 Duloxetine Hcl 30 Mg Capsule.Dr PO 30 mg DAILY NELY Administration Famotidine 20 mg 09/02/24 21:00 09/03/24 09:26 Famotidine 20 Mg Tablet PO 20 mg Q12HR NELY Administration Fish Oil 1 gm 09/02/24 09:00 09/03/24 09:26 Edward 3 Polyunsat Fatty Acids 1 Gm Cap PO 1 gm QAM NELY Administration Folic Acid 0.8 mg 09/02/24 09:00 09/03/24 09:27 Folic Acid 0.4 Mg Tablet PO 0.8 mg DAILY NELY Administration Furosemide 40 mg 09/03/24 11:15 09/03/24 13:17 Furosemide 40 Mg Tablet PO 40 mg DAILY NELY Administration Glucagon 1 mg 09/02/24 09:19 Glucagon For Inj 1 Mg Vial IM PRN PRN Hypoglycemia Protocol Glucose 15 gm 09/02/24 09:19 Glucose Oral Gel 15 Gm Of Glucse In 37.5 Gm Tube PO PRN PRN Hypoglycemia Protocol Heparin Sodium (Porcine) 5,000 units 09/02/24 09:00 09/03/24 09:31 Heparin Sodium 5,000 Units/Ml Vial SUB-Q 5,000 units Q12HR NELY Administration Dextrose 1,000 mls @ 100 mls/hr 09/02/24 09:19 Dextrose 5% 1,000 Ml IVPB PRN PRN Hypoglycemia Protocol Cefazolin Sodium 2 gm in 50 mls @ 100 mls/hr 09/02/24 22:00 09/03/24 13:17 Ancef 2 Gm/D5w 50 Ml IVPB 09/03/24 14:29 100 mls/hr Q8H NELY Administration Insulin Aspart 3 - 6 units 09/02/24 12:00 09/03/24 13:18 Insulin Aspart (*Bkc) 100 Units/Ml SUB-Q 3 units TIDWM NELY Administration Protocol Insulin Aspart 1 - 3 units 09/02/24 21:00 09/02/24 21:49 Insulin Aspart (*Bkc) 100 Units/Ml SUB-Q 2 units HS NELY Administration Protocol Metoprolol Succinate 50 mg 09/02/24 09:00 09/03/24 09:27 Metoprolol Succinate Ext Rel 50 Mg Tabcr PO 50 mg DAILY NELY Administration Morphine Sulfate 4 mg 09/01/24 22:11 09/02/24 17:45 Morphine Sulfate (*Crx) 4 Mg/Ml Inj IV PUSH 4 mg Q4H PRN Administration Pain Rated 7-10 Naloxone HCl 0.1 mg 09/02/24 17:00 Naloxone Hcl 0.4 Mg/Ml Vial IV PUSH Q2M PRN Opiate Reversal Ondansetron HCl 4 mg 09/01/24 22:42 09/03/24 08:35 Ondansetron Inj 4 Mg/2 Ml Vial IV PUSH 4 mg Q6H PRN Administration Nausea And Vomiting Oxycodone HCl 2.5 mg 09/02/24 17:00 Oxycodone Hcl (*Crx) 2.5 Mg Tab Ir PO Q4H PRN Pain Rated 4-6 Oxycodone HCl 5 mg 09/02/24 17:00 09/03/24 06:29 Oxycodone Hcl (*Crx) 5 Mg Tab Ir PO 5 mg Q4H PRN Administration Pain Rated 7-10 Polyethylene Glycol 17 gm 09/03/24 09:00 09/03/24 09:28 Polyethylene Glycol 3350 17 Gm Powd.Pack PO 17 gm QAM NELY Administration Senna/Docusate Sodium 2 tab 09/02/24 17:00 09/03/24 09:27 Senna/Docusate Sodium Tablet PO 2 tab BID [facility] Administration Tramadol HCl 50 mg 09/02/24 17:00 Tramadol Hcl (*Crx) 50 Mg Tablet PO Q4H PRN Pain Rated 1-3 Vitamin B Complex 1 cap 09/02/24 09:00 09/02/24 17:30 Vitamin B Complex Capsule PO Not Given Q48H [facility] Vitamin D 1,000 units 09/02/24 09:00 09/03/24 09:26 Cholecalciferol 1,000 Units Tablet PO 1,000 units DAILY [facility] Administration Radiology Results: ITS Impressions Chest X-Ray 09/01/24 17:39 IMPRESSION: Cardiomegaly. Possible atelectasis in the left lung base. Hip/Pelvis X-Ray 09/01/24 17:48 IMPRESSION: Intertrochanteric fracture. Head CT 09/01/24 17:59 IMPRESSION: No acute intracranial findings. Cervical Spine CT 09/01/24 19:29 IMPRESSION: No acute osseous abnormality cervical spine. Multilevel degenerative disc disease with variable degrees of intervertebral foraminal narrowing with nerve root compression. Enlarged left lobe of the thyroid. Ultrasound evaluation advised. Lumbar Spine CT 09/01/24 21:36 IMPRESSION: No acute osseous abnormality . Multilevel degenerative disc disease. Intraoperative X-Ray 09/02/24 15:51 IMPRESSION: 1. Intertrochanteric fracture of proximal left femur status post open reduction internal fixation. Labs Labs: Laboratory Results - last 24 hr 09/02/24 09/02/24 09/03/24 15:47 20:08 06:17 WBC 10.1 H RBC 3.70 L Hgb 10.6 L Hct 35.5 L MCV 95.9 MCH 28.6 MCHC 29.9 L RDW 14.4 Plt Count 157 MPV 11.1 H Immature Gran % (Auto) 0.8 H Neut % (Auto) 81.0 H Lymph % (Auto) 11.5 L [place] % (Auto) 4.9 Eos % (Auto) 1.2 Baso % (Auto) 0.6 Lymph # (Auto) 1.16 [place] # (Auto) 0.5 Eos # (Auto) 0.1 Baso # (Auto) 0.1 Abs Immat Gran (auto) 0.08 H Absolute Neuts (auto) 8.2 H Absolute Nucleated RBC 0.000 Nucleated RBC % 0.0 Platelet Estimate Adequate Crenated Cell 1+ Schistocytes None seen Sodium 136 L Potassium 4.4 Chloride 108 H Carbon Dioxide 23 Anion Gap 5 BUN 25 H Creatinine 1.20 H Estim Creat Clear Calc 31 Estimated GFR 44 L Glucose 146 H POC Capillary Glucose 162 H 252 H Calcium 7.7 L Total Bilirubin 0.8 AST 148 H ALT 208 H Alkaline Phosphatase 58 Total Protein 5.0 L Albumin 3.0 L 09/03/24 09/03/24 08:49 11:32 WBC RBC Hgb Hct MCV MCH MCHC RDW Plt Count MPV Immature Gran % (Auto) Neut % (Auto) Lymph % (Auto) [place] % (Auto) Eos % (Auto) Baso % (Auto) Lymph # (Auto) [place] # (Auto) Eos # (Auto) Baso # (Auto) Abs Immat Gran (auto) Absolute Neuts (auto) Absolute Nucleated RBC Nucleated RBC % Platelet Estimate Crenated Cell Schistocytes Sodium Potassium Chloride Carbon Dioxide Anion Gap BUN Creatinine Estim Creat Clear Calc Estimated GFR Glucose POC Capillary Glucose 176 H 205 H Calcium Total Bilirubin AST ALT Alkaline Phosphatase Total Protein Albumin Quality VTE Prophylaxis VTE prophylaxis: mechanical ordered
[2024-09-03 17:07] LABS: Glucose Point of Care 153 mg/dl (65-105)
[2024-09-03 20:58] LABS: Glucose Point of Care 173 mg/dl (65-105)
[2024-09-04] MEDS: ACETAMINOPHEN 325 MG TABLET 650 MG PO ×4 (00:42→17:17)
[2024-09-04 05:59] LABS: Basophils Absolute Auto 0.1 K/mm3 (0.0-0.1); Basophils Percent Auto 0.8 % (0.2-1.2); Eosinophils Absolute Auto 0.4 K/mm3 (0-0.3); Eosinophils Percent Auto 4.9 % (0-4.4); Hematocrit 30.4 % (37.0-47.0); Hemoglobin 9.4 g/dL (12.0-15.0); Immature Granulocyte Absolute 0.06 K/mm3 (0.00-0.031); Immature Granulocyte Percent A 0.8 % (0-0.5); Lymphocytes Absolute Auto 1.34 K/mm3 (0.9-3.2); Mean Corpuscular HGB Conc 30.9 g/dl (32-36); Mean Corpuscular Hemoglobin 28.7 pg (26-34); Mean Platelet Volume 11.1 fl (7.4-10.4); Monocytes Absolute Auto 0.5 K/mm3 (0.1-0.6); Neutrophils Absolute Auto 5.6 K/mm3 (1.3-6.7); Neutrophils Percent Auto 70.5 % (45.5-73.1); Platelet Count Result 160 k/mm3 (150-375); Red Blood Count 3.27 M/mm3 (4.2-5.4); Red Cell Distribution Width 14.6 % (11.5-14.5); White Blood Count 7.9 K/mm3 (4.5-10.0)
[2024-09-04 06:23] LABS: Alanine Aminotransferase 56 U/L (6-35); Albumin Level 2.9 g/dL (3.5-5.1); Alkaline Phosphatase 58 U/L (38-126); Anion Gap 5 mmol/L (4-12); Aspartate Amino Transferase 49 U/L (14-36); Bilirubin,Total 0.7 mg/dL (0.2-1.3); Blood Urea Nitrogen 35 mg/dL (7-17); Carbon Dioxide 24 mmol/L (22-30); Chloride 106 mmol/L (98-107); Estimated CRCL calculation 25 ml/min; Estimated Glomerular Filt Rate 34; Glucose 160 mg/dL (65-110); Potassium 4.1 mmol/L (3.4-5.0); Sodium 135 mmol/L (137-145)
[2024-09-04 06:41] VITALS: BP 130/59; PULSE 89; RESP 16; TEMP 36.9; O2SAT 99
[2024-09-04 08:00] VITALS: O2SAT 98
[2024-09-04 08:00] LABS: Glucose Point of Care 140 mg/dl (65-105)
[2024-09-04] MEDS: oxyCODONE HCL (*CRX) 5 MG TAB IR PO (09:06)
[2024-09-04] MEDS: DULoxetine HCL 30 MG CAPSULE.DR PO (09:31)
[2024-09-04] MEDS: DOCUSATE SODIUM 100 MG CAPSULE PO ×2 (09:31→20:56)
[2024-09-04] MEDS: VITAMIN B COMPLEX CAPSULE 1 CAP PO (09:32)
[2024-09-04] MEDS: SENNA/DOCUSATE SODIUM TABLET 2 TAB PO ×2 (09:32→17:17)
[2024-09-04] MEDS: CHOLECALCIFEROL 1,000 UNITS TABLET 1000 UNITS PO (09:32)
[2024-09-04] MEDS: ATORVASTATIN 40 MG TABLET 80 MG PO (09:32)
[2024-09-04] MEDS: FOLIC ACID 0.4 MG TABLET 0.8 MG PO (09:32)
[2024-09-04] MEDS: FUROSEMIDE 40 MG TABLET PO (09:32)
[2024-09-04] MEDS: OMEGA 3 POLYUNSAT FATTY ACIDS 1 GM CAP PO (09:32)
[2024-09-04] MEDS: FAMOTIDINE 20 MG TABLET PO ×2 (09:32→20:56)
[2024-09-04] MEDS: polyethylene glycoL 3350 17 GM POWD.PACK PO (09:33)
[2024-09-04] MEDS: HEPARIN SODIUM 5,000 UNITS/ML VIAL 5000 UNITS SUB-Q ×2 (09:33→20:56)
[2024-09-04 09:34] VITALS: PULSE 87
[2024-09-04] MEDS: METOPROLOL SUCCINATE EXT REL 50 MG TABCR PO (09:34)
--- NOTE | 2024-09-04 11:12 | P.PNIM_ITS ---
Progress Note: A&P Assessment and Plan (1) Closed intertrochanteric fracture of left hip: Qualifiers: Encounter type: initial encounter Fracture alignment: nondisplaced Qualified Code(s): S72.145A - Nondisplaced intertrochanteric fracture of left femur, initial encounter for closed fracture Code(s): S72.142A - Displaced intertrochanteric fracture of left femur, initial encounter for closed fracture Status: Acute Assessment and Plan: * Surgery on 09/02/24: ORIF left femur intertrochanteric fracture with cephalomedullary nail. Dressing C/D/I. * Pain regimen: Tylenol, Tramadol, Oxycodone IR, or Morphine IV * Ancef 2 grams IVPB q 8 for 3 doses post surgery completed. * PT/OT * Patient will need rehab at discharge, awaiting approval. Plan Acute and principal conditions 1. Left intertrochanteric fracture. Post-fall Analgesia; NPO Orthopedic surgery consulted Chronic and stable conditions 1. CJKD3. 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 Dyslipidemia. on Atorvastatin 3. CAD s/p PCI. 4. NIDDM. Basal+correctional insulin regimen Code status. Full Nutrition. NPO VTE Prophylaxis. SCDs; NELY Subjective Date/time seen: 09/04/24 11:12 Interval history: Patient reports pain in left hip is a 9 , constant, and aching. Patient had just completed therapy. Patient denies chest pain, palpitations, headache, nausea, or vomiting. Review of Systems Review of Systems: All systems reviewed & are unremarkable except as noted in HPI and below Exam Const: General: no acute distress and uncomfortable Resp: Effort & Inspection: normal respiratory effort Auscultation: clear to auscultation bilaterally Cardio: Rate: regular rate Rhythm: regular rhythm GI: GI Palp: Yes Soft to palpation Auscultation: normal bowel sounds Skin: Wounds: wounds noted ((Dressing clean, dry, and intact to left hip surgical site.) Neuro: Speech: normal speech Psych: Mental Status: mental status grossly normal Affect: normal affect Objective Data Vital Signs Vital Signs: Vital Signs - 24 hr 09/03/24 14:44 09/03/24 21:32 09/03/24 20:00 Temperature 97.2 F L 98.4 F Pulse Rate 71 85 Respiratory Rate 16 18 Blood Pressure 106/70 100/50 L Pulse Oximetry 95 97 96 Oxygen Delivery Nasal Cannula Oxygen Flow Rate 1 09/04/24 06:41 09/04/24 09:34 09/04/24 08:00 Temperature 98.4 F Pulse Rate 89 87 Respiratory Rate 16 Blood Pressure 130/59 L Pulse Oximetry 99 98 Oxygen Delivery Room Air Oxygen Flow Rate Intake/Output Intake/Output: Intake & Output 09/01/24 09/02/24 09/03/24 09/04/24 23:59 23:59 23:59 23:59 Intake Total 1980 1420 600 Output Total 310 550 600 Balance 1670 870 0 Meds/Results Medications: Active Medications Generic Name Dose Route Start Last Admin Trade Name Freq PRN Reason Stop Dose Admin Acetaminophen 650 mg 09/02/24 18:00 09/04/24 06:32 Acetaminophen 325 Mg Tablet PO 650 mg Q6HR NELY Administration Atorvastatin Calcium 80 mg 09/02/24 09:00 09/04/24 09:32 Atorvastatin 40 Mg Tablet PO 80 mg DAILY NELY Administration Bisacodyl 10 mg 09/01/24 22:42 Bisacodyl 10 Mg Suppository RECTAL ONCE PRN Constipation Dextrose 12.5 gm 09/02/24 09:19 Dextrose 50% 25 Gm/50 Ml Syringe IV PUSH PRN PRN Hypoglycemia Protocol Docusate Sodium 100 mg 09/02/24 09:00 09/04/24 09:31 Docusate Sodium 100 Mg Capsule PO 100 mg Q12HR NELY Administration Duloxetine HCl 30 mg 09/02/24 09:00 09/04/24 09:31 Duloxetine Hcl 30 Mg Capsule.Dr PO 30 mg DAILY NELY Administration Famotidine 20 mg 09/02/24 21:00 09/04/24 09:32 Famotidine 20 Mg Tablet PO 20 mg Q12HR NELY Administration Fish Oil 1 gm 09/02/24 09:00 09/04/24 09:32 Sargeant 3 Polyunsat Fatty Acids 1 Gm Cap PO 1 gm QAM NELY Administration Folic Acid 0.8 mg 09/02/24 09:00 09/04/24 09:32 Folic Acid 0.4 Mg Tablet PO 0.8 mg DAILY NELY Administration Furosemide 40 mg 09/03/24 11:15 09/04/24 09:32 Furosemide 40 Mg Tablet PO 40 mg DAILY NELY Administration Glucagon 1 mg 09/02/24 09:19 Glucagon For Inj 1 Mg Vial IM PRN PRN Hypoglycemia Protocol Glucose 15 gm 09/02/24 09:19 Glucose Oral Gel 15 Gm Of Glucse In 37.5 Gm Tube PO PRN PRN Hypoglycemia Protocol Heparin Sodium (Porcine) 5,000 units 09/02/24 09:00 09/04/24 09:33 Heparin Sodium 5,000 Units/Ml Vial SUB-Q 5,000 units Q12HR NELY Administration Dextrose 1,000 mls @ 100 mls/hr 09/02/24 09:19 Dextrose 5% 1,000 Ml IVPB PRN PRN Hypoglycemia Protocol Insulin Aspart 3 - 6 units 09/02/24 12:00 09/04/24 09:03 Insulin Aspart (*Bkc) 100 Units/Ml SUB-Q Not Given TIDWM NELY Protocol Insulin Aspart 1 - 3 units 09/02/24 21:00 09/03/24 22:11 Insulin Aspart (*Bkc) 100 Units/Ml SUB-Q Not Given HS NELY Protocol Metoprolol Succinate 50 mg 09/02/24 09:00 09/04/24 09:34 Metoprolol Succinate Ext Rel 50 Mg Tabcr PO 50 mg DAILY NELY Administration Morphine Sulfate 4 mg 09/01/24 22:11 09/02/24 17:45 Morphine Sulfate (*Crx) 4 Mg/Ml Inj IV PUSH 4 mg Q4H PRN Administration Pain Rated 7-10 Naloxone HCl 0.1 mg 09/02/24 17:00 Naloxone Hcl 0.4 Mg/Ml Vial IV PUSH Q2M PRN Opiate Reversal Ondansetron HCl 4 mg 09/01/24 22:42 09/03/24 14:42 Ondansetron Inj 4 Mg/2 Ml Vial IV PUSH 4 mg Q6H PRN Administration Nausea And Vomiting Oxycodone HCl 2.5 mg 09/02/24 17:00 Oxycodone Hcl (*Crx) 2.5 Mg Tab Ir PO Q4H PRN Pain Rated 4-6 Oxycodone HCl 5 mg 09/02/24 17:00 09/04/24 09:06 Oxycodone Hcl (*Crx) 5 Mg Tab Ir PO 5 mg Q4H PRN Administration Pain Rated 7-10 Polyethylene Glycol 17 gm 09/03/24 09:00 09/04/24 09:33 Polyethylene Glycol 3350 17 Gm Powd.Pack PO 17 gm QAM NELY Administration Senna/Docusate Sodium 2 tab 12/04/24 17:00 09/04/24 09:32 Senna/Docusate Sodium Tablet PO 2 tab BID NELY Administration Tramadol HCl 50 mg 09/02/24 17:00 Tramadol Hcl (*Crx) 50 Mg Tablet PO Q4H PRN Pain Rated 1-3 Vitamin B Complex 1 cap 09/02/24 09:00 09/04/24 09:32 Vitamin B Complex Capsule PO 1 cap Q48H NELY Administration Vitamin D 1,000 units 09/02/24 09:00 09/04/24 09:32 Cholecalciferol 1,000 Units Tablet PO 1,000 units DAILY NELY Administration Radiology Results: ITS Impressions Chest X-Ray 09/01/24 17:39 IMPRESSION: Cardiomegaly. Possible atelectasis in the left lung base. Hip/Pelvis X-Ray 09/01/24 17:48 IMPRESSION: Intertrochanteric fracture. Head CT 09/01/24 17:59 IMPRESSION: No acute intracranial findings. Cervical Spine CT 09/01/24 19:29 IMPRESSION: No acute osseous abnormality cervical spine. Multilevel degenerative disc disease with variable degrees of intervertebral foraminal narrowing with nerve root compression. Enlarged left lobe of the thyroid. Ultrasound evaluation advised. Lumbar Spine CT 09/01/24 21:36 IMPRESSION: No acute osseous abnormality . Multilevel degenerative disc disease. Intraoperative X-Ray 09/02/24 15:51 IMPRESSION: 1. Intertrochanteric fracture of proximal left femur status post open reduction internal fixation. Labs Labs: Laboratory Results - last 24 hr 09/03/24 09/03/24 09/03/24 11:32 17:04 20:00 WBC RBC Hgb Hct MCV MCH MCHC RDW Plt Count MPV Immature Gran % (Auto) Neut % (Auto) Lymph % (Auto) [place] % (Auto) Eos % (Auto) Baso % (Auto) Lymph # (Auto) [place] # (Auto) Eos # (Auto) Baso # (Auto) Abs Immat Gran (auto) Absolute Neuts (auto) Absolute Nucleated RBC Nucleated RBC % Sodium Potassium Chloride Carbon Dioxide Anion Gap BUN Creatinine Estim Creat Clear Calc Estimated GFR Glucose POC Capillary Glucose 205 H 153 H 173 H Calcium Total Bilirubin AST ALT Alkaline Phosphatase Total Protein Albumin 09/04/24 09/04/24 05:51 07:58 WBC 7.9 RBC 3.27 L Hgb 9.4 L Hct 30.4 L MCV 93.0 MCH 28.7 MCHC 30.9 L RDW 14.6 H Plt Count 160 MPV 11.1 H Immature Gran % (Auto) 0.8 H Neut % (Auto) 70.5 Lymph % (Auto) 17.0 L [place] % (Auto) 6.0 Eos % (Auto) 4.9 H Baso % (Auto) 0.8 Lymph # (Auto) 1.34 [place] # (Auto) 0.5 Eos # (Auto) 0.4 H Baso # (Auto) 0.1 Abs Immat Gran (auto) 0.06 H Absolute Neuts (auto) 5.6 Absolute Nucleated RBC 0.000 Nucleated RBC % 0.0 Sodium 135 L Potassium 4.1 Chloride 106 Carbon Dioxide 24 Anion Gap 5 BUN 35 H D Creatinine 1.50 H Estim Creat Clear Calc 25 Estimated GFR 34 L Glucose 160 H POC Capillary Glucose 140 H Calcium 8.0 L Total Bilirubin 0.7 AST 49 H ALT 56 H Alkaline Phosphatase 58 Total Protein 6.0 L Albumin 2.9 L Quality VTE Prophylaxis VTE prophylaxis: mechanical ordered and pharmacologic ordered
[2024-09-04 11:53] LABS: Glucose Point of Care 167 mg/dl (65-105)
--- NOTE | 2024-09-04 12:43 | P.PNOP_ITS ---
Progress Note: A&P Assessment and Plan (1) Closed intertrochanteric fracture of left hip: Qualifiers: Encounter type: initial encounter Fracture alignment: nondisplaced Qualified Code(s): S72.145A - Nondisplaced intertrochanteric fracture of left femur, initial encounter for closed fracture Code(s): S72.142A - Displaced intertrochanteric fracture of left femur, initial encounter for closed fracture Status: Acute Assessment and Plan: POD #2: ORIF left femur intertrochanteric fracture with cephalomedullary nail. Patient notes some improvement in itching from the dressing change. Notes she has not had a BM. Taking Miralax. Pain controlled. No other complaints. No c hanges in care plan. Patient will benefit from rehab at discharge. Okay for discharge from orthopedic standpoint once medically cleared. Ortho instructions: * D/C to SNF/rehab * Xray and follow up in office in 6 weeks. Please call [facility] to make an appointment. * Wound Care: remove ronnell at 2 weeks post op. Daily dressing changes until healed. * PT: Weight bearing as tolerated. * DVT prophylaxis: continue heparin for 30 days total * Pain medication: Oxycodone Subjective Subjective Date/Time Seen: 09/04/24 12:43 Interval history: Patient resting comfortably. Pain with movement. Review of Systems Review of Systems: All systems reviewed & are unremarkable except as noted in HPI and below Exam Narrative: Overweight 78 y/o female. Resting comfortably in bed. Wearing compression socks bilaterally. Dressing dry and intact with no drainage. Mild swelling. No edema. No ecchymosis. No erythema. No hematoma. Range of motion limited due to pain. Calf nontender. Thigh nontender. No varicosities. Distal pulses palpable. Did not wiggle left toes. Objective Data Vital Signs Vital Signs: Vital Signs - 24 hr 09/03/24 14:44 09/03/24 21:32 09/03/24 20:00 Temperature 97.2 F L 98.4 F Pulse Rate 71 85 Respiratory Rate 16 18 Blood Pressure 106/70 100/50 L Pulse Oximetry 95 97 96 Oxygen Delivery Nasal Cannula Oxygen Flow Rate 1 09/04/24 06:41 09/04/24 09:34 09/04/24 08:00 Temperature 98.4 F Pulse Rate 89 87 Respiratory Rate 16 Blood Pressure 130/59 L Pulse Oximetry 99 98 Oxygen Delivery Room Air Oxygen Flow Rate Intake/Output Intake/Output: Intake & Output 09/01/24 09/02/24 09/03/24 09/04/24 23:59 23:59 23:59 23:59 Intake Total 1979 1420 600 Output Total 310 550 600 Balance 1670 870 0 Meds/Results Medications: Active Medications Generic Name Dose Route Start Last Admin Trade Name Freq PRN Reason Stop Dose Admin Acetaminophen 650 mg 09/02/24 18:00 09/04/24 06:32 Acetaminophen 325 Mg Tablet PO 650 mg Q6HR NELY Administration Atorvastatin Calcium 80 mg 09/02/24 09:00 09/04/24 09:32 Atorvastatin 40 Mg Tablet PO 80 mg DAILY NELY Administration Bisacodyl 10 mg 09/01/24 22:42 Bisacodyl 10 Mg Suppository RECTAL ONCE PRN Constipation Dextrose 12.5 gm 09/02/24 09:19 Dextrose 50% 25 Gm/50 Ml Syringe IV PUSH PRN PRN Hypoglycemia Protocol Docusate Sodium 100 mg 09/02/24 09:00 09/04/24 09:31 Docusate Sodium 100 Mg Capsule PO 100 mg Q12HR NELY Administration Duloxetine HCl 30 mg 09/02/24 09:00 09/04/24 09:31 Duloxetine Hcl 30 Mg Capsule.Dr PO 30 mg DAILY NELY Administration Famotidine 20 mg 09/02/24 21:00 09/04/24 09:32 Famotidine 20 Mg Tablet PO 20 mg Q12HR NELY Administration Fish Oil 1 gm 09/02/24 09:00 09/04/24 09:32 [place] 3 Polyunsat Fatty Acids 1 Gm Cap PO 1 gm QAM NELY Administration Folic Acid 0.8 mg 09/02/24 09:00 09/04/24 09:32 Folic Acid 0.4 Mg Tablet PO 0.8 mg DAILY NELY Administration Furosemide 40 mg 09/03/24 11:15 09/04/24 09:32 Furosemide 40 Mg Tablet PO 40 mg DAILY NELY Administration Glucagon 1 mg 09/02/24 09:19 Glucagon For Inj 1 Mg Vial IM PRN PRN Hypoglycemia Protocol Glucose 15 gm 09/02/24 09:19 Glucose Oral Gel 15 Gm Of Glucse In 37.5 Gm Tube PO PRN PRN Hypoglycemia Protocol Heparin Sodium (Porcine) 5,000 units 09/02/24 09:00 09/04/24 09:33 Heparin Sodium 5,000 Units/Ml Vial SUB-Q 5,000 units Q12HR NELY Administration Dextrose 1,000 mls @ 100 mls/hr 09/02/24 09:19 Dextrose 5% 1,000 Ml IVPB PRN PRN Hypoglycemia Protocol Insulin Aspart 3 - 6 units 09/02/24 12:00 09/04/24 09:03 Insulin Aspart (*Bkc) 100 Units/Ml SUB-Q Not Given TIDWM NELY Protocol Insulin Aspart 1 - 3 units 09/02/24 21:00 09/03/24 22:11 Insulin Aspart (*Bkc) 100 Units/Ml SUB-Q Not Given HS [facility] Protocol Metoprolol Succinate 50 mg 09/02/24 09:00 09/04/24 09:34 Metoprolol Succinate Ext Rel 50 Mg Tabcr PO 50 mg DAILY NELY Administration Morphine Sulfate 4 mg 09/01/24 22:11 09/02/24 17:45 Morphine Sulfate (*Crx) 4 Mg/Ml Inj IV PUSH 4 mg Q4H PRN Administration Pain Rated 7-10 Naloxone HCl 0.1 mg 09/02/24 17:00 Naloxone Hcl 0.4 Mg/Ml Vial IV PUSH Q2M PRN Opiate Reversal Ondansetron HCl 4 mg 09/01/24 22:42 09/03/24 14:42 Ondansetron Inj 4 Mg/2 Ml Vial IV PUSH 4 mg Q6H PRN Administration Nausea And Vomiting Oxycodone HCl 2.5 mg 09/02/24 17:00 Oxycodone Hcl (*Crx) 2.5 Mg Tab Ir PO Q4H PRN Pain Rated 4-6 Oxycodone HCl 5 mg 09/02/24 17:00 09/04/24 09:06 Oxycodone Hcl (*Crx) 5 Mg Tab Ir PO 5 mg Q4H PRN Administration Pain Rated 7-10 Polyethylene Glycol 17 gm 09/03/24 09:00 09/04/24 09:33 Polyethylene Glycol 3350 17 Gm Powd.Pack PO 17 gm QAM NELY Administration Senna/Docusate Sodium 2 tab 09/02/24 17:00 09/04/24 09:32 Senna/Docusate Sodium Tablet PO 2 tab BID NELY Administration Tramadol HCl 50 mg 09/02/24 17:00 Tramadol Hcl (*Crx) 50 Mg Tablet PO Q4H PRN Pain Rated 1-3 Vitamin B Complex 1 cap 09/02/24 09:00 09/04/24 09:32 Vitamin B Complex Capsule PO 1 cap Q48H NELY Administration Vitamin D 1,000 units 09/02/24 09:00 09/04/24 09:32 Cholecalciferol 1,000 Units Tablet PO 1,000 units DAILY NELY Administration Radiology Results: ITS Impressions Chest X-Ray 09/01/24 17:39 IMPRESSION: Cardiomegaly. Possible atelectasis in the left lung base. Hip/Pelvis X-Ray 09/01/24 17:48 IMPRESSION: Intertrochanteric fracture. Head CT 09/01/24 17:59 IMPRESSION: No acute intracranial findings. Cervical Spine CT 09/01/24 19:29 IMPRESSION: No acute osseous abnormality cervical spine. Multilevel degenerative disc disease with variable degrees of intervertebral foraminal narrowing with nerve root compression. Enlarged left lobe of the thyroid. Ultrasound evaluation advised. Lumbar Spine CT 09/01/24 21:36 IMPRESSION: No acute osseous abnormality . Multilevel degenerative disc disease. Intraoperative X-Ray 09/02/24 15:51 IMPRESSION: 1. Intertrochanteric fracture of proximal left femur status post open reduction internal fixation. Labs Labs: Laboratory Results - last 24 hr 09/03/24 09/03/24 09/04/24 17:04 20:00 05:51 WBC 7.9 RBC 3.27 L Hgb 9.4 L Hct 30.4 L MCV 93.0 MCH 28.7 MCHC 30.9 L RDW 14.6 H Plt Count 160 MPV 11.1 H Immature Gran % (Auto) 0.8 H Neut % (Auto) 70.5 Lymph % (Auto) 17.0 L [place] % (Auto) 6.0 Eos % (Auto) 4.9 H Baso % (Auto) 0.8 Lymph # (Auto) 1.34 [place] # (Auto) 0.5 Eos # (Auto) 0.4 H Baso # (Auto) 0.1 Abs Immat Gran (auto) 0.06 H Absolute Neuts (auto) 5.6 Absolute Nucleated RBC 0.000 Nucleated RBC % 0.0 Sodium 135 L Potassium 4.1 Chloride 106 Carbon Dioxide 24 Anion Gap 5 BUN 35 H D Creatinine 1.50 H Estim Creat Clear Calc 25 Estimated GFR 34 L Glucose 160 H POC Capillary Glucose 153 H 173 H Calcium 8.0 L Total Bilirubin 0.7 AST 49 H ALT 56 H Alkaline Phosphatase 58 Total Protein 6.0 L Albumin 2.9 L 09/04/24 09/04/24 07:58 11:51 WBC RBC Hgb Hct MCV MCH MCHC RDW Plt Count MPV Immature Gran % (Auto) Neut % (Auto) Lymph % (Auto) [place] % (Auto) Eos % (Auto) Baso % (Auto) Lymph # (Auto) [place] # (Auto) Eos # (Auto) Baso # (Auto) Abs Immat Gran (auto) Absolute Neuts (auto) Absolute Nucleated RBC Nucleated RBC % Sodium Potassium Chloride Carbon Dioxide Anion Gap BUN Creatinine Estim Creat Clear Calc Estimated GFR Glucose POC Capillary Glucose 140 H 167 H Calcium Total Bilirubin AST ALT Alkaline Phosphatase Total Protein Albumin
[2024-09-04 14:13] VITALS: BP 132/60; PULSE 87; RESP 16; TEMP 36.7; O2SAT 98
[2024-09-04 17:19] LABS: Glucose Point of Care 197 mg/dl (65-105)
[2024-09-04 19:42] VITALS: BP 101/66; PULSE 100; RESP 12; TEMP 36.5; O2SAT 97
[2024-09-04 20:43] LABS: Glucose Point of Care 254 mg/dl (65-105)
[2024-09-04] MEDS: INSULIN ASPART (*BKC) 100 UNITS/ML SUB-Q (20:58)
[2024-09-05] VITALS (7 sets, daily range): BP systolic 106–138; BP diastolic 57–70; PULSE 72–118; RESP 14–16; TEMP 36.2–36.3; O2SAT 91–98
[2024-09-05] MEDS: ACETAMINOPHEN 325 MG TABLET 650 MG PO ×3 (00:37→17:11)
[2024-09-05] MEDS: ONDANSETRON INJ 4 MG/2 ML VIAL IV PUSH (05:15)
[2024-09-05] MEDS: oxyCODONE HCL (*CRX) 5 MG TAB IR PO ×2 (05:15→09:20)
[2024-09-05 06:16] LABS: Basophils Absolute Auto 0.1 K/mm3 (0.0-0.1); Basophils Percent Auto 1.1 % (0.2-1.2); Eosinophils Absolute Auto 0.3 K/mm3 (0-0.3); Eosinophils Percent Auto 4.1 % (0-4.4); Hematocrit 27.1 % (37.0-47.0); Hemoglobin 8.8 g/dL (12.0-15.0); Immature Granulocyte Absolute 0.07 K/mm3 (0.00-0.031); Immature Granulocyte Percent A 0.9 % (0-0.5); Lymphocytes Absolute Auto 1.94 K/mm3 (0.9-3.2); Lymphocytes Percent Auto 25.8 % (18.3-44.2); Mean Corpuscular HGB Conc 32.5 g/dl (32-36); Mean Corpuscular Hemoglobin 29.4 pg (26-34); Mean Corpuscular Volume 90.6 fl (80-100); Mean Platelet Volume 11.7 fl (7.4-10.4); Monocytes Absolute Auto 0.6 K/mm3 (0.1-0.6); Monocytes Percent Auto 8.5 % (2.6-8.5); Neutrophils Absolute Auto 4.5 K/mm3 (1.3-6.7); Neutrophils Percent Auto 59.6 % (45.5-73.1); Nucleated Red Blood Cells Perc 0.3 % (0.0-0.2); Platelet Count Result 209 k/mm3 (150-375); Red Blood Count 2.99 M/mm3 (4.2-5.4); Red Cell Distribution Width 14.7 % (11.5-14.5); White Blood Count 7.5 K/mm3 (4.5-10.0)
[2024-09-05 06:29] LABS: Alanine Aminotransferase 68 U/L (6-35); Albumin Level 2.9 g/dL (3.5-5.1); Alkaline Phosphatase 73 U/L (38-126); Anion Gap 7 mmol/L (4-12); Aspartate Amino Transferase 93 U/L (14-36); Bilirubin,Total 0.6 mg/dL (0.2-1.3); Blood Urea Nitrogen 43 mg/dL (7-17); Calcium 8.1 mg/dL (8.4-10.2); Carbon Dioxide 23 mmol/L (22-30); Chloride 103 mmol/L (98-107); Estimated CRCL calculation 23 ml/min; Estimated Glomerular Filt Rate 31; Glucose 157 mg/dL (65-110); Potassium 3.8 mmol/L (3.4-5.0); Sodium 133 mmol/L (137-145)
[2024-09-05 08:26] LABS: Glucose Point of Care 156 mg/dl (65-105)
[2024-09-05] MEDS: DULoxetine HCL 30 MG CAPSULE.DR PO (09:19)
[2024-09-05] MEDS: FAMOTIDINE 20 MG TABLET PO ×2 (09:19→20:47)
[2024-09-05] MEDS: ATORVASTATIN 40 MG TABLET 80 MG PO (09:19)
[2024-09-05] MEDS: CHOLECALCIFEROL 1,000 UNITS TABLET 1000 UNITS PO (09:19)
[2024-09-05] MEDS: SENNA/DOCUSATE SODIUM TABLET 2 TAB PO ×2 (09:19→17:11)
[2024-09-05] MEDS: DOCUSATE SODIUM 100 MG CAPSULE PO ×2 (09:19→20:47)
[2024-09-05] MEDS: FUROSEMIDE 40 MG TABLET PO (09:19)
[2024-09-05] MEDS: OMEGA 3 POLYUNSAT FATTY ACIDS 1 GM CAP PO (09:20)
[2024-09-05] MEDS: FOLIC ACID 0.4 MG TABLET 0.8 MG PO (09:20)
[2024-09-05] MEDS: HEPARIN SODIUM 5,000 UNITS/ML VIAL 5000 UNITS SUB-Q ×2 (09:22→20:50)
[2024-09-05] MEDS: polyethylene glycoL 3350 17 GM POWD.PACK PO (09:22)
[2024-09-05] MEDS: METOPROLOL SUCCINATE EXT REL 50 MG TABCR PO (09:24)
--- NOTE | 2024-09-05 11:45 | P.PNIM_ITS ---
Progress Note: A&P Assessment and Plan (1) Closed intertrochanteric fracture of left hip: Qualifiers: Encounter type: initial encounter Fracture alignment: nondisplaced Qualified Code(s): S72.145A - Nondisplaced intertrochanteric fracture of left femur, initial encounter for closed fracture Code(s): S72.142A - Displaced intertrochanteric fracture of left femur, initial encounter for closed fracture Status: Acute Assessment and Plan: * Surgery on 09/02/24: ORIF left femur intertrochanteric fracture with cephalomedullary nail. Dressing C/D/I. * Pain regimen: Tylenol, Tramadol, Oxycodone IR, or Morphine IV * Ancef 2 grams IVPB q 8 for 3 doses post surgery completed. * PT/OT * Patient will need rehab at discharge, awaiting approval. Plan Acute and principal conditions 1. Left intertrochanteric fracture. Post-fall Analgesia; NPO Orthopedic surgery consulted Chronic and stable conditions 1. CJKD3. 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 Dyslipidemia. on Atorvastatin 3. CAD s/p PCI. 4. NIDDM. Basal+correctional insulin regimen Code status. Full Nutrition. NPO VTE Prophylaxis. SCDs; NELY Subjective Date/time seen: 09/05/24 11:45 Interval history: Patient reports pain in left hip is a 8 , constant, and aching when up but denies pain at present while lying in bed. Patient denies chest pain, palpitations, headache, nausea, or vomiting. Patient reports feeling lightheaded at times when she gets up and sometimes having dry heaves. Patient reports eating and drinking well. Review of Systems Review of Systems: All systems reviewed & are unremarkable except as noted in HPI and below Exam Const: General: comfortable and no acute distress Resp: Effort & Inspection: normal respiratory effort Auscultation: clear to auscultation bilaterally Cardio: Rate: regular rate Rhythm: regular rhythm GI: GI Palp: Yes Soft to palpation Auscultation: normal bowel sounds Skin: Other: Dressing clean, dry, and intact to left hip surgical site Neuro: Speech: normal speech Extrem: General: no pedal edema Psych: Mental Status: mental status grossly normal Affect: normal affect Objective Data Vital Signs Vital Signs: Vital Signs - 24 hr 09/04/24 14:13 09/04/24 19:42 09/04/24 20:00 Temperature 98.0 F 97.7 F Pulse Rate 87 100 Respiratory Rate 16 12 Blood Pressure 132/60 101/66 Pulse Oximetry 98 97 Oxygen Delivery Room Air Oxygen Flow Rate Fraction of Inspired Oxygen 09/05/24 05:44 09/05/24 07:52 09/05/24 08:04 Temperature 97.4 F L Pulse Rate 72 Respiratory Rate 14 Blood Pressure 138/66 Pulse Oximetry 95 96 93 Oxygen Delivery Nasal Cannula Room Air Oxygen Flow Rate 1.5 Fraction of Inspired Oxygen 26 09/05/24 09:24 Temperature Pulse Rate 118 H Respiratory Rate Blood Pressure Pulse Oximetry Oxygen Delivery Oxygen Flow Rate Fraction of Inspired Oxygen Intake/Output Intake/Output: Intake & Output 09/02/24 09/03/24 09/04/24 09/05/24 23:59 23:59 23:59 23:59 Intake Total 1980 1420 1556 615 Output Total 310 550 600 Balance 1670 870 956 615 Meds/Results Medications: Active Medications Generic Name Dose Route Start Last Admin Trade Name Freq PRN Reason Stop Dose Admin Acetaminophen 650 mg 09/02/24 18:00 09/05/24 05:13 Acetaminophen 325 Mg Tablet PO 650 mg Q6HR NELY Administration Atorvastatin Calcium 80 mg 09/02/24 09:00 09/05/24 09:19 Atorvastatin 40 Mg Tablet PO 80 mg DAILY NELY Administration Bisacodyl 10 mg 09/01/24 22:42 Bisacodyl 10 Mg Suppository RECTAL ONCE PRN Constipation Dextrose 12.5 gm 09/02/24 09:19 Dextrose 50% 25 Gm/50 Ml Syringe IV PUSH PRN PRN Hypoglycemia Protocol Docusate Sodium 100 mg 09/02/24 09:00 09/05/24 09:19 Docusate Sodium 100 Mg Capsule PO 100 mg Q12HR NELY Administration Duloxetine HCl 30 mg 09/02/24 09:00 09/05/24 09:19 Duloxetine Hcl 30 Mg Capsule.Dr PO 30 mg DAILY NELY Administration Famotidine 20 mg 09/02/24 21:00 09/05/24 09:19 Famotidine 20 Mg Tablet PO 20 mg Q12HR NELY Administration Fish Oil 1 gm 09/02/24 09:00 09/05/24 09:20 [place] 3 Polyunsat Fatty Acids 1 Gm Cap PO 1 gm QAM NELY Administration Folic Acid 0.8 mg 09/02/24 09:00 12/07/24 09:20 Folic Acid 0.4 Mg Tablet PO 0.8 mg DAILY NELY Administration Furosemide 40 mg 09/03/24 11:15 09/05/24 09:19 Furosemide 40 Mg Tablet PO 40 mg DAILY NELY Administration Glucagon 1 mg 09/02/24 09:19 Glucagon For Inj 1 Mg Vial IM PRN PRN Hypoglycemia Protocol Glucose 15 gm 09/02/24 09:19 Glucose Oral Gel 15 Gm Of Glucse In 37.5 Gm Tube PO PRN PRN Hypoglycemia Protocol Heparin Sodium (Porcine) 5,000 units 09/02/24 09:00 09/05/24 09:22 Heparin Sodium 5,000 Units/Ml Vial SUB-Q 5,000 units Q12HR NELY Administration Dextrose 1,000 mls @ 100 mls/hr 09/02/24 09:19 Dextrose 5% 1,000 Ml IVPB PRN PRN Hypoglycemia Protocol Insulin Aspart 3 - 6 units 09/02/24 12:00 09/05/24 09:11 Insulin Aspart (*Bkc) 100 Units/Ml SUB-Q Not Given TIDWM NELY Protocol Insulin Aspart 1 - 3 units 09/02/24 21:00 09/04/24 20:58 Insulin Aspart (*Bkc) 100 Units/Ml SUB-Q 2 units HS NELY Administration Protocol Metoprolol Succinate 50 mg 09/02/24 09:00 09/05/24 09:24 Metoprolol Succinate Ext Rel 50 Mg Tabcr PO 50 mg DAILY NELY Administration Morphine Sulfate 4 mg 09/01/24 22:11 09/02/24 17:45 Morphine Sulfate (*Crx) 4 Mg/Ml Inj IV PUSH 4 mg Q4H PRN Administration Pain Rated 7-10 Naloxone HCl 0.1 mg 09/02/24 17:00 Naloxone Hcl 0.4 Mg/Ml Vial IV PUSH Q2M PRN Opiate Reversal Ondansetron HCl 4 mg 09/01/24 22:42 09/05/24 05:15 Ondansetron Inj 4 Mg/2 Ml Vial IV PUSH 4 mg Q6H PRN Administration Nausea And Vomiting Oxycodone HCl 2.5 mg 09/02/24 17:00 Oxycodone Hcl (*Crx) 2.5 Mg Tab Ir PO Q4H PRN Pain Rated 4-6 Oxycodone HCl 5 mg 09/02/24 17:00 09/05/24 09:20 Oxycodone Hcl (*Crx) 5 Mg Tab Ir PO 5 mg Q4H PRN Administration Pain Rated 7-10 Polyethylene Glycol 17 gm 09/03/24 09:00 09/05/24 09:22 Polyethylene Glycol 3350 17 Gm Powd.Pack PO 17 gm QAM NELY Administration Senna/Docusate Sodium 2 tab 09/02/24 17:00 09/05/24 09:19 Senna/Docusate Sodium Tablet PO 2 tab BID NELY Administration Tramadol HCl 50 mg 09/02/24 17:00 Tramadol Hcl (*Crx) 50 Mg Tablet PO Q4H PRN Pain Rated 1-3 Vitamin B Complex 1 cap 09/02/24 09:00 09/04/24 09:32 Vitamin B Complex Capsule PO 1 cap Q48H NELY Administration Vitamin D 1,000 units 09/02/24 09:00 09/05/24 09:19 Cholecalciferol 1,000 Units Tablet PO 1,000 units DAILY NELY Administration Radiology Results: ITS Impressions Chest X-Ray 09/01/24 17:39 IMPRESSION: Cardiomegaly. Possible atelectasis in the left lung base. Hip/Pelvis X-Ray 09/01/24 17:48 IMPRESSION: Intertrochanteric fracture. Head CT 09/01/24 17:59 IMPRESSION: No acute intracranial findings. Cervical Spine CT 09/01/24 19:29 IMPRESSION: No acute osseous abnormality cervical spine. Multilevel degenerative disc disease with variable degrees of intervertebral foraminal narrowing with nerve root compression. Enlarged left lobe of the thyroid. Ultrasound evaluation advised. Lumbar Spine CT 09/01/24 21:36 IMPRESSION: No acute osseous abnormality . Multilevel degenerative disc disease. Intraoperative X-Ray 09/02/24 15:51 IMPRESSION: 1. Intertrochanteric fracture of proximal left femur status post open reduction internal fixation. Labs Labs: Laboratory Results - last 24 hr 09/04/24 09/04/24 09/04/24 11:51 17:16 20:24 WBC RBC Hgb Hct MCV MCH MCHC RDW Plt Count MPV Immature Gran % (Auto) Neut % (Auto) Lymph % (Auto) [place] % (Auto) Eos % (Auto) Baso % (Auto) Lymph # (Auto) [place] # (Auto) Eos # (Auto) Baso # (Auto) Abs Immat Gran (auto) Absolute Neuts (auto) Absolute Nucleated RBC Nucleated RBC % Sodium Potassium Chloride Carbon Dioxide Anion Gap BUN Creatinine Estim Creat Clear Calc Estimated GFR Glucose POC Capillary Glucose 167 H 197 H 254 H Calcium Total Bilirubin AST ALT Alkaline Phosphatase Total Protein Albumin 09/05/24 09/05/24 05:35 08:24 WBC 7.5 RBC 2.99 L Hgb 8.8 L Hct 27.1 L MCV 90.6 MCH 29.4 MCHC 32.5 RDW 14.7 H Plt Count 209 MPV 11.7 H Immature Gran % (Auto) 0.9 H Neut % (Auto) 59.6 Lymph % (Auto) 25.8 [place] % (Auto) 8.5 Eos % (Auto) 4.1 Baso % (Auto) 1.1 Lymph # (Auto) 1.94 [place] # (Auto) 0.6 Eos # (Auto) 0.3 Baso # (Auto) 0.1 Abs Immat Gran (auto) 0.07 H Absolute Neuts (auto) 4.5 Absolute Nucleated RBC 0.020 H Nucleated RBC % 0.3 H Sodium 133 L Potassium 3.8 Chloride 103 Carbon Dioxide 23 Anion Gap 7 BUN 43 H Creatinine 1.60 H Estim Creat Clear Calc 23 Estimated GFR 31 L Glucose 157 H POC Capillary Glucose 156 H Calcium 8.1 L Total Bilirubin 0.6 AST 93 H ALT 68 H Alkaline Phosphatase 73 Total Protein 5.0 L Albumin 2.9 L Quality VTE Prophylaxis VTE prophylaxis: mechanical ordered and pharmacologic ordered
[2024-09-05 12:30] LABS: Glucose Point of Care 175 mg/dl (65-105)
[2024-09-05 17:10] LABS: Glucose Point of Care 168 mg/dl (65-105)
[2024-09-05] MEDS: INSULIN ASPART (*BKC) 100 UNITS/ML SUB-Q (20:46)
[2024-09-05 21:38] LABS: Glucose Point of Care 234 mg/dl (65-105)
[2024-09-06] MEDS: ACETAMINOPHEN 325 MG TABLET 650 MG PO ×5 (00:44→22:59)
[2024-09-06 06:00] VITALS: BP 121/65; PULSE 89; RESP 16; TEMP 36.2; O2SAT 90
[2024-09-06 06:37] LABS: Basophils Absolute Auto 0.1 K/mm3 (0.0-0.1); Basophils Percent Auto 1.1 % (0.2-1.2); Eosinophils Absolute Auto 0.2 K/mm3 (0-0.3); Eosinophils Percent Auto 2.7 % (0-4.4); Hematocrit 29.9 % (37.0-47.0); Hemoglobin 9.3 g/dL (12.0-15.0); Immature Granulocyte Absolute 0.13 K/mm3 (0.00-0.031); Immature Granulocyte Percent A 1.6 % (0-0.5); Lymphocytes Absolute Auto 2.23 K/mm3 (0.9-3.2); Lymphocytes Percent Auto 26.9 % (18.3-44.2); Mean Corpuscular HGB Conc 31.1 g/dl (32-36); Mean Corpuscular Hemoglobin 28.7 pg (26-34); Mean Corpuscular Volume 92.3 fl (80-100); Mean Platelet Volume 11.7 fl (7.4-10.4); Monocytes Absolute Auto 0.8 K/mm3 (0.1-0.6); Monocytes Percent Auto 9.4 % (2.6-8.5); Neutrophils Absolute Auto 4.9 K/mm3 (1.3-6.7); Neutrophils Percent Auto 58.3 % (45.5-73.1); Platelet Count Result 231 k/mm3 (150-375); Red Blood Count 3.24 M/mm3 (4.2-5.4); Red Cell Distribution Width 14.8 % (11.5-14.5); White Blood Count 8.3 K/mm3 (4.5-10.0)
[2024-09-06 06:45] LABS: Alanine Aminotransferase 381 U/L (6-35); Alkaline Phosphatase 87 U/L (38-126); Anion Gap 8 mmol/L (4-12); Aspartate Amino Transferase 503 U/L (14-36); Bilirubin,Total 0.8 mg/dL (0.2-1.3); Blood Urea Nitrogen 50 mg/dL (7-17); Calcium 8.5 mg/dL (8.4-10.2); Carbon Dioxide 25 mmol/L (22-30); Chloride 105 mmol/L (98-107); Estimated CRCL calculation 20 ml/min; Estimated Glomerular Filt Rate 26; Glucose 164 mg/dL (65-110); Potassium 5.5 mmol/L (3.4-5.0); Sodium 138 mmol/L (137-145)
[2024-09-06 08:51] VITALS: O2SAT 92
[2024-09-06 09:01] LABS: Glucose Point of Care 157 mg/dl (65-105)
--- NOTE | 2024-09-06 09:05 | PC.NURSE ---
US at bedside
[2024-09-06] MEDS: HEPARIN SODIUM 5,000 UNITS/ML VIAL 5000 UNITS SUB-Q ×2 (09:47→20:19)
[2024-09-06] MEDS: FOLIC ACID 0.4 MG TABLET 0.8 MG PO (09:47)
[2024-09-06] MEDS: CHOLECALCIFEROL 1,000 UNITS TABLET 1000 UNITS PO (09:47)
[2024-09-06] MEDS: FAMOTIDINE 20 MG TABLET PO ×2 (09:47→20:19)
[2024-09-06] MEDS: DULoxetine HCL 30 MG CAPSULE.DR PO (09:47)
[2024-09-06] MEDS: ATORVASTATIN 40 MG TABLET 80 MG PO (09:47)
[2024-09-06] MEDS: OMEGA 3 POLYUNSAT FATTY ACIDS 1 GM CAP PO (09:47)
[2024-09-06 09:48] VITALS: PULSE 93
[2024-09-06] MEDS: SENNA/DOCUSATE SODIUM TABLET 2 TAB PO (09:48)
[2024-09-06] MEDS: VITAMIN B COMPLEX CAPSULE 1 CAP PO (09:48)
[2024-09-06] MEDS: METOPROLOL SUCCINATE EXT REL 50 MG TABCR PO (09:48)
[2024-09-06] MEDS: DOCUSATE SODIUM 100 MG CAPSULE PO ×2 (09:48→20:19)
[2024-09-06 10:29] LABS: Alanine Aminotransferase 396 U/L (6-35); Albumin Level 3.1 g/dL (3.5-5.1); Alkaline Phosphatase 93 U/L (38-126); Anion Gap 9 mmol/L (4-12); Aspartate Amino Transferase 450 U/L (14-36); Bilirubin,Total 0.7 mg/dL (0.2-1.3); Blood Urea Nitrogen 47 mg/dL (7-17); Calcium 8.1 mg/dL (8.4-10.2); Carbon Dioxide 23 mmol/L (22-30); Chloride 103 mmol/L (98-107); Estimated CRCL calculation 21 ml/min; Estimated Glomerular Filt Rate 27; Glucose 192 mg/dL (65-110); Potassium 4.2 mmol/L (3.4-5.0); Sodium 135 mmol/L (137-145)
[2024-09-06 10:34] LABS: Hepatitis B Surface Antigen Negative (Negative)
[2024-09-06 10:40] LABS: HAV RESULT Negative (Negative); Hepatitis B Core IgM Result Negative (Negative)
[2024-09-06 10:52] LABS: Hepatitis C Virus Antibody Negative (Negative)
--- NOTE | 2024-09-06 11:31 | P.PNIM_ITS ---
Progress Note: A&P Assessment and Plan (1) Closed intertrochanteric fracture of left hip: Qualifiers: Encounter type: initial encounter Fracture alignment: nondisplaced Qualified Code(s): S72.145A - Nondisplaced intertrochanteric fracture of left femur, initial encounter for closed fracture Code(s): S72.142A - Displaced intertrochanteric fracture of left femur, initial encounter for closed fracture Status: Acute Assessment and Plan: * Surgery on 09/02/24: ORIF left femur intertrochanteric fracture with cephalomedullary nail. Dressing C/D/I. * Pain regimen: Tylenol, Tramadol, Oxycodone IR, or Morphine IV * Ancef 2 grams IVPB q 8 for 3 doses post surgery completed. * PT/OT * Patient will need rehab at discharge, awaiting approval. (2) Stage 3 chronic kidney disease: Code(s): N18.3 - Chronic kidney disease, stage 3 (moderate) Status: Acute Assessment and Plan: * 09/06/24: Creatinine 1.80, BUN 47, & GFR 31 * 09/05/24: Creatinine 1.60, BUN 43, & GFR 27 * Hold Lasix today. * Encourage oral intake (3) Elevated liver enzymes: Code(s): R74.8 - Abnormal levels of other serum enzymes Status: Inactive Assessment and Plan: * ALT elevated to 381 this morning, yesterday was 68, repeat 396 * AST elevated to 503 this morning, yesterday was 93, repeat 450 * Hepatitis panel negative * PT 14.8, INR 1.1, PTT 29.5 * Liver ultrasound: FINDINGS: There is a 1.2 cm cyst in the pancreas, likely a pseudocyst. The liver is normal without focal lesion. No liver surface nodularity. There is normal flow in main portal vein. The gallbladder is absent. The common duct is normal and measures 10 mm . IMPRESSION: 1. 1.2 cm cyst in the pancreas, likely a pseudocyst given the findings of chronic pancreatitis on the prior CT. * Monitor enzymes. (4) Long-term insulin use in type 2 diabetes: Code(s): E11.9 - Type 2 diabetes mellitus without complications; Z79.4 - director long term care (current) use of insulin Status: Acute Assessment and Plan: * Hypoglycemic protocol * Basal+correctional insulin regimen Subjective Date/time seen: 09/06/24 11:31 Interval history: Patient reports pain in her left hip is a 3 , constant, and aching. Patient denies chest pain, palpitations, headache, dizziness, nausea, or vomiting. Reports that appetite is fair. Review of Systems Review of Systems: All systems reviewed & are unremarkable except as noted in HPI and below Exam Const: General: no acute distress and uncomfortable Eyes: Sclera: sclerae normal Resp: Effort & Inspection: normal respiratory effort Auscultation: clear to auscultation bilaterally Cardio: Rate: regular rate Rhythm: regular rhythm GI: GI Palp: Yes Soft to palpation Auscultation: normal bowel sounds Skin: Other: Dressing clean, dry, and intact to left hip surgical site Neuro: Speech: normal speech Extrem: General: normal to inspection Psych: Mental Status: mental status grossly normal Affect: normal affect Objective Data Vital Signs Vital Signs: Vital Signs - 24 hr 09/05/24 17:52 09/05/24 21:10 09/05/24 20:00 Temperature 97.3 F L 97.1 F L Pulse Rate 96 87 Respiratory Rate 16 16 Blood Pressure 106/70 115/57 L Pulse Oximetry 91 95 98 Oxygen Delivery Nasal Cannula Oxygen Flow Rate 2 09/06/24 06:00 09/06/24 08:51 09/06/24 09:48 Temperature 97.1 F L Pulse Rate 89 93 Respiratory Rate 16 Blood Pressure 121/65 Pulse Oximetry 90 92 Oxygen Delivery Room Air Oxygen Flow Rate 09/06/24 09:48 Temperature Pulse Rate Respiratory Rate Blood Pressure Pulse Oximetry Oxygen Delivery Room Air Oxygen Flow Rate Intake/Output Intake/Output: Intake & Output 09/03/24 09/04/24 09/05/24 09/06/24 23:59 23:59 23:59 23:59 Intake Total 1420 1556 1295 540 Output Total 550 600 Balance 832 157 7678 540 Meds/Results Medications: Active Medications Generic Name Dose Route Start Last Admin Trade Name Freq PRN Reason Stop Dose Admin Acetaminophen 650 mg 09/02/24 18:00 09/06/24 05:59 Acetaminophen 325 Mg Tablet PO 650 mg Q6HR NELY Administration Atorvastatin Calcium 80 mg 09/02/24 09:00 09/06/24 09:47 Atorvastatin 40 Mg Tablet PO 80 mg DAILY NELY Administration Bisacodyl 10 mg 09/01/24 22:42 Bisacodyl 10 Mg Suppository RECTAL ONCE PRN Constipation Dextrose 12.5 gm 09/02/24 09:19 Dextrose 50% 25 Gm/50 Ml Syringe IV PUSH PRN PRN Hypoglycemia Protocol Docusate Sodium 100 mg 09/02/24 09:00 09/06/24 09:48 Docusate Sodium 100 Mg Capsule PO 100 mg Q12HR NELY Administration Duloxetine HCl 30 mg 09/02/24 09:00 09/06/24 09:47 Duloxetine Hcl 30 Mg Capsule.Dr PO 30 mg DAILY NELY Administration Famotidine 20 mg 09/02/24 21:00 09/06/24 09:47 Famotidine 20 Mg Tablet PO 20 mg Q12HR NELY Administration Fish Oil 1 gm 09/02/24 09:00 09/06/24 09:47 [place] 3 Polyunsat Fatty Acids 1 Gm Cap PO 1 gm QAM NELY Administration Folic Acid 0.8 mg 09/02/24 09:00 09/06/24 09:47 Folic Acid 0.4 Mg Tablet PO 0.8 mg DAILY NELY Administration Furosemide 40 mg 09/03/24 11:15 09/05/24 09:19 Furosemide 40 Mg Tablet PO 40 mg DAILY NELY Administration Glucagon 1 mg 09/02/24 09:19 Glucagon For Inj 1 Mg Vial IM PRN PRN Hypoglycemia Protocol Glucose 15 gm 09/02/24 09:19 Glucose Oral Gel 15 Gm Of Glucse In 37.5 Gm Tube PO PRN PRN Hypoglycemia Protocol Heparin Sodium (Porcine) 5,000 units 09/02/24 09:00 09/06/24 09:47 Heparin Sodium 5,000 Units/Ml Vial SUB-Q 5,000 units Q12HR NELY Administration Dextrose 1,000 mls @ 100 mls/hr 09/02/24 09:19 Dextrose 5% 1,000 Ml IVPB PRN PRN Hypoglycemia Protocol Insulin Aspart 3 - 6 units 09/02/24 12:00 09/06/24 09:05 Insulin Aspart (*Bkc) 100 Units/Ml SUB-Q Not Given TIDWM NELY Protocol Insulin Aspart 1 - 3 units 09/02/24 21:00 09/05/24 20:46 Insulin Aspart (*Bkc) 100 Units/Ml SUB-Q 1 units HS NELY Administration Protocol Metoprolol Succinate 50 mg 09/02/24 09:00 09/06/24 09:48 Metoprolol Succinate Ext Rel 50 Mg Tabcr PO 50 mg DAILY NELY Administration Morphine Sulfate 4 mg 09/01/24 22:11 09/02/24 17:45 Morphine Sulfate (*Crx) 4 Mg/Ml Inj IV PUSH 4 mg Q4H PRN Administration Pain Rated 7-10 Naloxone HCl 0.1 mg 09/02/24 17:00 Naloxone Hcl 0.4 Mg/Ml Vial IV PUSH Q2M PRN Opiate Reversal Ondansetron HCl 4 mg 09/01/24 22:42 09/05/24 05:15 Ondansetron Inj 4 Mg/2 Ml Vial IV PUSH 4 mg Q6H PRN Administration Nausea And Vomiting Oxycodone HCl 2.5 mg 09/02/24 17:00 Oxycodone Hcl (*Crx) 2.5 Mg Tab Ir PO Q4H PRN Pain Rated 4-6 Oxycodone HCl 5 mg 09/02/24 17:00 09/05/24 09:20 Oxycodone Hcl (*Crx) 5 Mg Tab Ir PO 5 mg Q4H PRN Administration Pain Rated 7-10 Polyethylene Glycol 17 gm 09/03/24 09:00 09/06/24 09:48 Polyethylene Glycol 3350 17 Gm Powd.Pack PO Not Given QAM NELY Senna/Docusate Sodium 2 tab 09/02/24 17:00 09/06/24 09:48 Senna/Docusate Sodium Tablet PO 2 tab BID NELY Administration Tramadol HCl 50 mg 09/02/24 17:00 Tramadol Hcl (*Crx) 50 Mg Tablet PO Q4H PRN Pain Rated 1-3 Vitamin B Complex 1 cap 09/02/24 09:00 09/06/24 09:48 Vitamin B Complex Capsule PO 1 cap Q48H NELY Administration Vitamin D 1,000 units 09/02/24 09:00 09/06/24 09:47 Cholecalciferol 1,000 Units Tablet PO 1,000 units DAILY NELY Administration Radiology Results: ITS Impressions Chest X-Ray 09/01/24 17:39 IMPRESSION: Cardiomegaly. Possible atelectasis in the left lung base. Hip/Pelvis X-Ray 09/01/24 17:48 IMPRESSION: Intertrochanteric fracture. Head CT 09/01/24 17:59 IMPRESSION: No acute intracranial findings. Cervical Spine CT 09/01/24 19:29 IMPRESSION: No acute osseous abnormality cervical spine. Multilevel degenerative disc disease with variable degrees of intervertebral foraminal narrowing with nerve root compression. Enlarged left lobe of the thyroid. Ultrasound evaluation advised. Lumbar Spine CT 09/01/24 21:36 IMPRESSION: No acute osseous abnormality . Multilevel degenerative disc disease. Intraoperative X-Ray 09/02/24 15:51 IMPRESSION: 1. Intertrochanteric fracture of proximal left femur status post open reduction internal fixation. Abdomen Ultrasound 09/06/24 09:35 IMPRESSION: 1. 1.2 cm cyst in the pancreas, likely a pseudocyst given the findings of chronic pancreatitis on the prior CT. Labs Labs: Laboratory Results - last 24 hr 09/05/24 09/05/24 09/05/24 12:22 17:06 20:17 WBC RBC Hgb Hct MCV MCH MCHC RDW Plt Count MPV Immature Gran % (Auto) Neut % (Auto) Lymph % (Auto) [place] % (Auto) Eos % (Auto) Baso % (Auto) Lymph # (Auto) [place] # (Auto) Eos # (Auto) Baso # (Auto) Abs Immat Gran (auto) Absolute Neuts (auto) Absolute Nucleated RBC Nucleated RBC % Sodium Potassium Chloride Carbon Dioxide Anion Gap BUN Creatinine Estim Creat Clear Calc Estimated GFR Glucose POC Capillary Glucose 175 H 168 H 234 H Calcium Total Bilirubin AST ALT Alkaline Phosphatase Total Protein Albumin Hepatitis A IgM Ab Hep Bs Antigen Hep B Core IgM Ab Hepatitis C Ab Screen 09/06/24 09/06/24 09/06/24 05:43 08:53 10:02 WBC 8.3 RBC 3.24 L Hgb 9.3 L Hct 29.9 L MCV 92.3 MCH 28.7 MCHC 31.1 L RDW 14.8 H Plt Count 231 MPV 11.7 H Immature Gran % (Auto) 1.6 H Neut % (Auto) 58.3 Lymph % (Auto) 26.9 [place] % (Auto) 9.4 H Eos % (Auto) 2.7 Baso % (Auto) 1.1 Lymph # (Auto) 2.23 [place] # (Auto) 0.8 H Eos # (Auto) 0.2 Baso # (Auto) 0.1 Abs Immat Gran (auto) 0.13 H Absolute Neuts (auto) 4.9 Absolute Nucleated RBC 0.080 H Nucleated RBC % 1.0 H Sodium 138 135 L Potassium 5.5 H 4.2 Chloride 105 103 Carbon Dioxide 25 23 Anion Gap 8 9 BUN 50 H 47 H Creatinine 1.90 H 1.80 H Estim Creat Clear Calc 20 21 Estimated GFR 26 L 27 L Glucose 164 H 192 H POC Capillary Glucose 157 H Calcium 8.5 8.1 L Total Bilirubin 0.8 0.7 AST 503 H 450 H ALT 381 H 396 H Alkaline Phosphatase 87 93 Total Protein 6.0 L 6.0 L Albumin 3.0 L 3.1 L Hepatitis A IgM Ab Negative Hep Bs Antigen Negative Hep B Core IgM Ab Negative Hepatitis C Ab Screen Negative Quality VTE Prophylaxis VTE prophylaxis: mechanical ordered and pharmacologic ordered
[2024-09-06 12:04] LABS: INR 1.1; Prothrombin Time 14.8 Seconds (11.1-14.7)
[2024-09-06 12:05] LABS: Partial Thromboplastin Time 29.5 Seconds (22.3-36.8)
[2024-09-06 12:15] LABS: Glucose Point of Care 265 mg/dl (65-105)
[2024-09-06] MEDS: INSULIN ASPART (*BKC) 100 UNITS/ML SUB-Q ×2 (12:39→20:19)
[2024-09-06 14:00] VITALS: BP 126/79; PULSE 88; RESP 14; TEMP 36.2; O2SAT 95
[2024-09-06] MEDS: ONDANSETRON INJ 4 MG/2 ML VIAL IV PUSH (15:18)
[2024-09-06 17:20] LABS: Glucose Point of Care 142 mg/dl (65-105)
[2024-09-06 19:43] VITALS: BP 127/67; PULSE 84; RESP 18; TEMP 36.5; O2SAT 94
[2024-09-06 20:00] VITALS: O2SAT 99
[2024-09-06 21:18] LABS: Glucose Point of Care 206 mg/dl (65-105)
[2024-09-07 03:28] VITALS: BP 129/81; PULSE 87; RESP 18; TEMP 36.5; O2SAT 95
[2024-09-07] MEDS: ACETAMINOPHEN 325 MG TABLET 650 MG PO ×3 (05:10→18:07)
[2024-09-07 05:47] LABS: Basophils Absolute Auto 0.1 K/mm3 (0.0-0.1); Basophils Percent Auto 1.3 % (0.2-1.2); Eosinophils Absolute Auto 0.3 K/mm3 (0-0.3); Hematocrit 30.2 % (37.0-47.0); Hemoglobin 9.1 g/dL (12.0-15.0); Immature Granulocyte Absolute 0.16 K/mm3 (0.00-0.031); Immature Granulocyte Percent A 2.3 % (0-0.5); Immature Platelet Fraction Pct 8.4 % (0.9-11.2); Lymphocytes Absolute Auto 1.54 K/mm3 (0.9-3.2); Lymphocytes Percent Auto 22.3 % (18.3-44.2); Mean Corpuscular HGB Conc 30.1 g/dl (32-36); Mean Corpuscular Hemoglobin 28.8 pg (26-34); Mean Corpuscular Volume 95.6 fl (80-100); Mean Platelet Volume 12.1 fl (7.4-10.4); Monocytes Absolute Auto 0.7 K/mm3 (0.1-0.6); Monocytes Percent Auto 10.1 % (2.6-8.5); Neutrophils Absolute Auto 4.2 K/mm3 (1.3-6.7); Nucleated Red Blood Cells Perc 1.6 % (0.0-0.2); Platelet Count Result 176 k/mm3 (150-375); Red Blood Count 3.16 M/mm3 (4.2-5.4); White Blood Count 6.9 K/mm3 (4.5-10.0)
[2024-09-07 06:00] LABS: Alanine Aminotransferase 308 U/L (6-35); Albumin Level 2.8 g/dL (3.5-5.1); Alkaline Phosphatase 72 U/L (38-126); Anion Gap 6 mmol/L (4-12); Aspartate Amino Transferase 216 U/L (14-36); Blood Urea Nitrogen 43 mg/dL (7-17); Calcium 7.8 mg/dL (8.4-10.2); Carbon Dioxide 21 mmol/L (22-30); Chloride 104 mmol/L (98-107); Estimated CRCL calculation 29 ml/min; Estimated Glomerular Filt Rate 40; Glucose 148 mg/dL (65-110); Potassium 4.4 mmol/L (3.4-5.0); Sodium 131 mmol/L (137-145)
[2024-09-07 07:49] VITALS: O2SAT 95
[2024-09-07 08:44] LABS: Glucose Point of Care 152 mg/dl (65-105)
[2024-09-07] MEDS: DULoxetine HCL 30 MG CAPSULE.DR PO (10:22)
[2024-09-07] MEDS: CHOLECALCIFEROL 1,000 UNITS TABLET 1000 UNITS PO (10:22)
[2024-09-07] MEDS: FOLIC ACID 0.4 MG TABLET 0.8 MG PO (10:22)
[2024-09-07] MEDS: oxyCODONE HCL (*CRX) 5 MG TAB IR PO (10:23)
[2024-09-07] MEDS: FAMOTIDINE 20 MG TABLET PO ×2 (10:23→20:00)
[2024-09-07] MEDS: ATORVASTATIN 40 MG TABLET 80 MG PO (10:23)
[2024-09-07] MEDS: OMEGA 3 POLYUNSAT FATTY ACIDS 1 GM CAP PO (10:23)
[2024-09-07] MEDS: HEPARIN SODIUM 5,000 UNITS/ML VIAL 5000 UNITS SUB-Q ×2 (10:24→19:59)
[2024-09-07 10:32] VITALS: PULSE 89
[2024-09-07] MEDS: METOPROLOL SUCCINATE EXT REL 50 MG TABCR PO (10:32)
[2024-09-07 12:18] LABS: Glucose Point of Care 240 mg/dl (65-105)
--- NOTE | 2024-09-07 12:27 | P.PNIM_ITS ---
Progress Note: A&P Assessment and Plan (1) Closed intertrochanteric fracture of left hip: Qualifiers: Encounter type: initial encounter Fracture alignment: nondisplaced Qualified Code(s): S72.145A - Nondisplaced intertrochanteric fracture of left femur, initial encounter for closed fracture Code(s): S72.142A - Displaced intertrochanteric fracture of left femur, initial encounter for closed fracture Status: Acute Assessment and Plan: * Surgery on 09/02/24: ORIF left femur intertrochanteric fracture with cephalomedullary nail. Dressing C/D/I. * Pain regimen: Tylenol, Tramadol, Oxycodone IR, or Morphine IV * Ancef 2 grams IVPB q 8 for 3 doses post surgery completed. * PT/OT * Patient will need rehab at discharge, awaiting approval. (2) Stage 3 chronic kidney disease: Code(s): N18.3 - Chronic kidney disease, stage 3 (moderate) Status: Acute Assessment and Plan: * 09/07/24: Creatinine 1.30, BUN 43, & GFR 40. * 09/06/24: Creatinine 1.80, BUN 47, & GFR 31 * 09/05/24: Creatinine 1.60, BUN 43, & GFR 27 * Hold Lasix today. Appetite improving and creatinine improved. Resume Lasix tomorrow AM. * Encourage oral intake (3) Elevated liver enzymes: Code(s): R74.8 - Abnormal levels of other serum enzymes Status: Inactive Assessment and Plan: * ALT elevated to 381 on 09/06, 09/05 was 68, repeat 396. Today 308. * AST elevated to 503 on 09/06, 09/05 was 93, repeat 450. Today 216. * Hepatitis panel negative * PT 14.8, INR 1.1, PTT 29.5 * Liver ultrasound: FINDINGS: There is a 1.2 cm cyst in the pancreas, likely a pseudocyst. The liver is normal without focal lesion. No liver surface nodularity. There is normal flow in main portal vein. The gallbladder is absent. The common duct is normal and measures 10 mm . IMPRESSION: 1. 1.2 cm cyst in the pancreas, likely a pseudocyst given the findings of chronic pancreatitis on the prior CT. * Monitor enzymes. (4) Long-term insulin use in type 2 diabetes: Code(s): E11.9 - Type 2 diabetes mellitus without complications; Z79.4 - senior care (current) use of insulin Status: Acute Assessment and Plan: * Hypoglycemic protocol * Basal+correctional insulin regimen Subjective Date/time seen: 09/07/24 12:27 Interval history: Sitting up in a chair. Patient reports pain in her left hip is a 3 , constant, and aching. Patient denies chest pain, palpitations, headache, dizziness, nausea, or vomiting. Patient aware that she insurance denied [facility] and coordinator is working on a SNF. Review of Systems Review of Systems: All systems reviewed & are unremarkable except as noted in HPI and below Exam Const: General: no acute distress and uncomfortable Eyes: Sclera: sclerae normal Resp: Effort & Inspection: normal respiratory effort Auscultation: clear to auscultation bilaterally Cardio: Rate: regular rate Rhythm: regular rhythm GI: GI Palp: Yes Soft to palpation Auscultation: normal bowel sounds Skin: Other: Left hip dressing dry and intact with no drainage. Neuro: Speech: normal speech Extrem: General: normal to inspection Psych: Mental Status: mental status grossly normal Affect: normal affect Objective Data Vital Signs Vital Signs: Vital Signs - 24 hr 09/06/24 14:00 09/06/24 19:43 09/06/24 20:00 Temperature 97.1 F L 97.7 F Pulse Rate 88 84 Respiratory Rate 14 18 Blood Pressure 126/79 127/67 Pulse Oximetry 95 94 99 Oxygen Delivery Nasal Cannula Oxygen Flow Rate 2 Fraction of Inspired Oxygen 09/07/24 03:28 09/07/24 07:49 09/07/24 10:32 Temperature 97.7 F Pulse Rate 87 89 Respiratory Rate 18 Blood Pressure 129/81 Pulse Oximetry 95 95 Oxygen Delivery Room Air Oxygen Flow Rate Fraction of Inspired Oxygen 21 09/07/24 09:48 Temperature Pulse Rate Respiratory Rate Blood Pressure Pulse Oximetry Oxygen Delivery Room Air Oxygen Flow Rate Fraction of Inspired Oxygen Intake/Output Intake/Output: Intake & Output 09/04/24 09/05/24 09/06/24 09/07/24 23:59 23:59 23:59 23:59 Intake Total 1556 1295 690 527 Output Total 600 Balance 956 1295 690 527 Meds/Results Medications: Active Medications Generic Name Dose Route Start Last Admin Trade Name Freq PRN Reason Stop Dose Admin Acetaminophen 650 mg 09/02/24 18:00 12/09/24 05:10 Acetaminophen 325 Mg Tablet PO 650 mg Q6HR NELY Administration Atorvastatin Calcium 80 mg 09/02/24 09:00 09/07/24 10:23 Atorvastatin 40 Mg Tablet PO 80 mg DAILY NELY Administration Bisacodyl 10 mg 09/01/24 22:42 Bisacodyl 10 Mg Suppository RECTAL ONCE PRN Constipation Dextrose 12.5 gm 09/02/24 09:19 Dextrose 50% 25 Gm/50 Ml Syringe IV PUSH PRN PRN Hypoglycemia Protocol Docusate Sodium 100 mg 09/02/24 09:00 09/07/24 10:23 Docusate Sodium 100 Mg Capsule PO Not Given Q12HR NELY Duloxetine HCl 30 mg 09/02/24 09:00 09/07/24 10:22 Duloxetine Hcl 30 Mg Capsule.Dr PO 30 mg DAILY NELY Administration Famotidine 20 mg 09/02/24 21:00 09/07/24 10:23 Famotidine 20 Mg Tablet PO 20 mg Q12HR NELY Administration Fish Oil 1 gm 09/02/24 09:00 09/07/24 10:23 [place] 3 Polyunsat Fatty Acids 1 Gm Cap PO 1 gm QAM NELY Administration Folic Acid 0.8 mg 09/02/24 09:00 09/07/24 10:22 Folic Acid 0.4 Mg Tablet PO 0.8 mg DAILY NELY Administration Furosemide 40 mg 09/03/24 11:15 09/05/24 09:19 Furosemide 40 Mg Tablet PO 40 mg DAILY NELY Administration Glucagon 1 mg 09/02/24 09:19 Glucagon For Inj 1 Mg Vial IM PRN PRN Hypoglycemia Protocol Glucose 15 gm 09/02/24 09:19 Glucose Oral Gel 15 Gm Of Glucse In 37.5 Gm Tube PO PRN PRN Hypoglycemia Protocol Heparin Sodium (Porcine) 5,000 units 09/02/24 09:00 09/07/24 10:24 Heparin Sodium 5,000 Units/Ml Vial SUB-Q 5,000 units Q12HR NELY Administration Dextrose 1,000 mls @ 100 mls/hr 09/02/24 09:19 Dextrose 5% 1,000 Ml IVPB PRN PRN Hypoglycemia Protocol Insulin Aspart 3 - 6 units 09/02/24 12:00 09/07/24 08:51 Insulin Aspart (*Bkc) 100 Units/Ml SUB-Q Not Given TIDWM NELY Protocol Insulin Aspart 1 - 3 units 09/02/24 21:00 09/06/24 20:19 Insulin Aspart (*Bkc) 100 Units/Ml SUB-Q 1 units HS [facility] Administration Protocol Metoprolol Succinate 50 mg 09/02/24 09:00 09/07/24 10:32 Metoprolol Succinate Ext Rel 50 Mg Tabcr PO 50 mg DAILY [facility] Administration Morphine Sulfate 4 mg 09/01/24 22:11 09/02/24 17:45 Morphine Sulfate (*Crx) 4 Mg/Ml Inj IV PUSH 4 mg Q4H PRN Administration Pain Rated 7-10 Naloxone HCl 0.1 mg 09/02/24 17:00 Naloxone Hcl 0.4 Mg/Ml Vial IV PUSH Q2M PRN Opiate Reversal Ondansetron HCl 4 mg 09/01/24 22:42 09/06/24 15:18 Ondansetron Inj 4 Mg/2 Ml Vial IV PUSH 4 mg Q6H PRN Administration Nausea And Vomiting Oxycodone HCl 2.5 mg 09/02/24 17:00 Oxycodone Hcl (*Crx) 2.5 Mg Tab Ir PO Q4H PRN Pain Rated 4-6 Oxycodone HCl 5 mg 09/02/24 17:00 09/07/24 10:23 Oxycodone Hcl (*Crx) 5 Mg Tab Ir PO 5 mg Q4H PRN Administration Pain Rated 7-10 Polyethylene Glycol 17 gm 09/03/24 09:00 09/07/24 10:23 Polyethylene Glycol 3350 17 Gm Powd.Pack PO Not Given QAM [facility] Senna/Docusate Sodium 2 tab 09/02/24 17:00 09/07/24 10:23 Senna/Docusate Sodium Tablet PO Not Given BID [facility] Tramadol HCl 50 mg 09/02/24 17:00 Tramadol Hcl (*Crx) 50 Mg Tablet PO Q4H PRN Pain Rated 1-3 Vitamin B Complex 1 cap 09/02/24 09:00 09/06/24 09:48 Vitamin B Complex Capsule PO 1 cap Q48H [facility] Administration Vitamin D 1,000 units 09/02/24 09:00 09/07/24 10:22 Cholecalciferol 1,000 Units Tablet PO 1,000 units DAILY [facility] Administration Radiology Results: ITS Impressions Chest X-Ray 09/01/24 17:39 IMPRESSION: Cardiomegaly. Possible atelectasis in the left lung base. Hip/Pelvis X-Ray 09/01/24 17:48 IMPRESSION: Intertrochanteric fracture. Head CT 09/01/24 17:59 IMPRESSION: No acute intracranial findings. Cervical Spine CT 09/01/24 19:29 IMPRESSION: No acute osseous abnormality cervical spine. Multilevel degenerative disc disease with variable degrees of intervertebral foraminal narrowing with nerve root compression. Enlarged left lobe of the thyroid. Ultrasound evaluation advised. Lumbar Spine CT 09/01/24 21:36 IMPRESSION: No acute osseous abnormality . Multilevel degenerative disc disease. Intraoperative X-Ray 09/02/24 15:51 IMPRESSION: 1. Intertrochanteric fracture of proximal left femur status post open reduction internal fixation. Abdomen Ultrasound 09/06/24 09:35 IMPRESSION: 1. 1.2 cm cyst in the pancreas, likely a pseudocyst given the findings of chronic pancreatitis on the prior CT. Labs Labs: Laboratory Results - last 24 hr 09/06/24 09/06/24 09/07/24 17:03 19:49 05:24 WBC 6.9 RBC 3.16 L Hgb 9.1 L Hct 30.2 L MCV 95.6 MCH 28.8 MCHC 30.1 L RDW 15.0 H Plt Count 176 MPV 12.1 H Immature Gran % (Auto) 2.3 H Neut % (Auto) 60.0 Lymph % (Auto) 22.3 [place] % (Auto) 10.1 H Eos % (Auto) 4.0 Baso % (Auto) 1.3 H Lymph # (Auto) 1.54 [place] # (Auto) 0.7 H Eos # (Auto) 0.3 Baso # (Auto) 0.1 Abs Immat Gran (auto) 0.16 H Absolute Neuts (auto) 4.2 Absolute Nucleated RBC 0.110 H Nucleated RBC % 1.6 H % Immature Plt Fraction 8.4 Sodium 131 L Potassium 4.4 Chloride 104 Carbon Dioxide 21 L Anion Gap 6 BUN 43 H Creatinine 1.30 H Estim Creat Clear Calc 29 Estimated GFR 40 L Glucose 148 H POC Capillary Glucose 142 H 206 H Calcium 7.8 L Total Bilirubin 1.0 AST 216 H ALT 308 H Alkaline Phosphatase 72 Total Protein 6.0 L Albumin 2.8 L 09/07/24 09/07/24 08:32 12:14 WBC RBC Hgb Hct MCV MCH MCHC RDW Plt Count MPV Immature Gran % (Auto) Neut % (Auto) Lymph % (Auto) [place] % (Auto) Eos % (Auto) Baso % (Auto) Lymph # (Auto) [place] # (Auto) Eos # (Auto) Baso # (Auto) Abs Immat Gran (auto) Absolute Neuts (auto) Absolute Nucleated RBC Nucleated RBC % % Immature Plt Fraction Sodium Potassium Chloride Carbon Dioxide Anion Gap BUN Creatinine Estim Creat Clear Calc Estimated GFR Glucose POC Capillary Glucose 152 H 240 H Calcium Total Bilirubin AST ALT Alkaline Phosphatase Total Protein Albumin Quality VTE Prophylaxis VTE prophylaxis: mechanical ordered and pharmacologic ordered
[2024-09-07] MEDS: INSULIN ASPART (*BKC) 100 UNITS/ML SUB-Q ×2 (12:28→20:00)
[2024-09-07 14:00] VITALS: BP 118/84; PULSE 82; RESP 15; TEMP 36.8; O2SAT 97
--- NOTE | 2024-09-07 14:53 | PM.PNORT ---
Progress Note: A&P Assessment and Plan (1) Closed intertrochanteric fracture of left hip: Qualifiers: Encounter type: initial encounter Fracture alignment: nondisplaced Qualified Code(s): S72.145A - Nondisplaced intertrochanteric fracture of left femur, initial encounter for closed fracture Code(s): S72.142A - Displaced intertrochanteric fracture of left femur, initial encounter for closed fracture Status: Acute Assessment and Plan: POD #5: ORIF left femur intertrochanteric fracture with cephalomedullary nail. Patient progressing well. Ambulating with a walker and is is ambulating better. Pain controlled but worse with motion. No changes in care plan. Patient will benefit from rehab at discharge. Okay for discharge from orthopedic standpoint once medically cleared. Ortho instructions: D/C to SNF/rehab Xray and follow up in office in 6 weeks. Please call [facility] to make an appointment. Wound Care: remove ronnell at 2 weeks post op. Daily dressing changes until healed. PT: Weight bearing as tolerated. DVT prophylaxis: continue heparin for 30 days total Pain medication: Oxycodone Subjective Subjective Date/Time Seen: 09/07/24 14:53 Interval history: Patient resting comfortably. She has been able to get up and move a lot better. Pain with a lot of motion. No other complaints. Review of Systems Review of Systems: All systems reviewed & are unremarkable except as noted in HPI and below Exam Narrative: Overweight 78 y/o female. Resting comfortably in bed. Wearing compression socks bilaterally. Dressing dry and intact with no drainage. Mild swelling. No edema. No ecchymosis. No erythema. No hematoma. Range of motion limited due to pain. Some calf tenderness. No other signs of DVT. She is also on blood thinners. Thigh nontender. No varicosities. Distal pulses palpable. Did not wiggle left toes. Objective Data Vital Signs Vital Signs: Vital Signs - 24 hr 09/06/24 19:43 09/06/24 20:00 09/07/24 03:28 Temperature 97.7 F 97.7 F Pulse Rate 84 87 Respiratory Rate 18 18 Blood Pressure 127/67 129/81 Pulse Oximetry 94 99 95 Oxygen Delivery Nasal Cannula Oxygen Flow Rate 2 Fraction of Inspired Oxygen 09/07/24 07:49 09/07/24 10:32 09/07/24 09:48 Temperature Pulse Rate 89 Respiratory Rate Blood Pressure Pulse Oximetry 95 Oxygen Delivery Room Air Room Air Oxygen Flow Rate Fraction of Inspired Oxygen 21 09/07/24 14:00 Temperature 98.2 F Pulse Rate 82 Respiratory Rate 15 Blood Pressure 118/84 Pulse Oximetry 97 Oxygen Delivery Oxygen Flow Rate Fraction of Inspired Oxygen Intake/Output Intake/Output: Intake & Output 09/04/24 09/05/24 09/06/24 09/07/24 23:59 23:59 23:59 23:59 Intake Total 1556 1295 690 645 Output Total 600 Balance 956 1295 690 645 Meds/Results Medications: Active Medications Generic Name Dose Route Start Last Admin Trade Name Freq PRN Reason Stop Dose Admin Acetaminophen 650 mg 09/02/24 18:00 09/07/24 12:28 Acetaminophen 325 Mg Tablet PO 650 mg Q6HR NELY Administration Atorvastatin Calcium 80 mg 09/02/24 09:00 09/07/24 10:23 Atorvastatin 40 Mg Tablet PO 80 mg DAILY NELY Administration Bisacodyl 10 mg 09/01/24 22:42 Bisacodyl 10 Mg Suppository RECTAL ONCE PRN Constipation Dextrose 12.5 gm 09/02/24 09:19 Dextrose 50% 25 Gm/50 Ml Syringe IV PUSH PRN PRN Hypoglycemia Protocol Docusate Sodium 100 mg 09/02/24 09:00 09/07/24 10:23 Docusate Sodium 100 Mg Capsule PO Not Given Q12HR NELY Duloxetine HCl 30 mg 09/02/24 09:00 09/07/24 10:22 Duloxetine Hcl 30 Mg Capsule.Dr PO 30 mg DAILY NELY Administration Famotidine 20 mg 09/02/24 21:00 09/07/24 10:23 Famotidine 20 Mg Tablet PO 20 mg Q12HR NELY Administration Fish Oil 1 gm 09/02/24 09:00 09/07/24 10:23 [place] 3 Polyunsat Fatty Acids 1 Gm Cap PO 1 gm QAM NELY Administration Folic Acid 0.8 mg 09/02/24 09:00 09/07/24 10:22 Folic Acid 0.4 Mg Tablet PO 0.8 mg DAILY NELY Administration Furosemide 40 mg 09/03/24 11:15 09/05/24 09:19 Furosemide 40 Mg Tablet PO 40 mg DAILY NELY Administration Glucagon 1 mg 09/02/24 09:19 Glucagon For Inj 1 Mg Vial IM PRN PRN Hypoglycemia Protocol Glucose 15 gm 09/02/24 09:19 Glucose Oral Gel 15 Gm Of Glucse In 37.5 Gm Tube PO PRN PRN Hypoglycemia Protocol Heparin Sodium (Porcine) 5,000 units 09/02/24 09:00 09/07/24 10:24 Heparin Sodium 5,000 Units/Ml Vial SUB-Q 5,000 units Q12HR NELY Administration Dextrose 1,000 mls @ 100 mls/hr 09/02/24 09:19 Dextrose 5% 1,000 Ml IVPB PRN PRN Hypoglycemia Protocol Insulin Aspart 3 - 6 units 09/02/24 12:00 09/07/24 12:28 Insulin Aspart (*Bkc) 100 Units/Ml SUB-Q 3 units TIDWM NELY Administration Protocol Insulin Aspart 1 - 3 units 09/02/24 21:00 09/06/24 20:19 Insulin Aspart (*Bkc) 100 Units/Ml SUB-Q 1 units HS NELY Administration Protocol Metoprolol Succinate 50 mg 09/02/24 09:00 09/07/24 10:32 Metoprolol Succinate Ext Rel 50 Mg Tabcr PO 50 mg DAILY NELY Administration Morphine Sulfate 4 mg 09/01/24 22:11 09/02/24 17:45 Morphine Sulfate (*Crx) 4 Mg/Ml Inj IV PUSH 4 mg Q4H PRN Administration Pain Rated 7-10 Naloxone HCl 0.1 mg 09/02/24 17:00 Naloxone Hcl 0.4 Mg/Ml Vial IV PUSH Q2M PRN Opiate Reversal Ondansetron HCl 4 mg 09/01/24 22:42 09/06/24 15:18 Ondansetron Inj 4 Mg/2 Ml Vial IV PUSH 4 mg Q6H PRN Administration Nausea And Vomiting Oxycodone HCl 2.5 mg 09/02/24 17:00 Oxycodone Hcl (*Crx) 2.5 Mg Tab Ir PO Q4H PRN Pain Rated 4-6 Oxycodone HCl 5 mg 09/02/24 17:00 09/07/24 10:23 Oxycodone Hcl (*Crx) 5 Mg Tab Ir PO 5 mg Q4H PRN Administration Pain Rated 7-10 Polyethylene Glycol 17 gm 09/03/24 09:00 09/07/24 10:23 Polyethylene Glycol 3350 17 Gm Powd.Pack PO Not Given QAM NELY Senna/Docusate Sodium 2 tab 09/02/24 17:00 09/07/24 10:23 Senna/Docusate Sodium Tablet PO Not Given BID NELY Tramadol HCl 50 mg 09/02/24 17:00 Tramadol Hcl (*Crx) 50 Mg Tablet PO Q4H PRN Pain Rated 1-3 Vitamin B Complex 1 cap 09/02/24 09:00 09/06/24 09:48 Vitamin B Complex Capsule PO 1 cap Q48H NELY Administration Vitamin D 1,000 units 09/02/24 09:00 09/07/24 10:22 Cholecalciferol 1,000 Units Tablet PO 1,000 units DAILY NELY Administration Radiology Results: ITS Impressions Chest X-Ray 09/01/24 17:39 IMPRESSION: Cardiomegaly. Possible atelectasis in the left lung base. Hip/Pelvis X-Ray 09/01/24 17:48 IMPRESSION: Intertrochanteric fracture. Head CT 09/01/24 17:59 IMPRESSION: No acute intracranial findings. Cervical Spine CT 09/01/24 19:29 IMPRESSION: No acute osseous abnormality cervical spine. Multilevel degenerative disc disease with variable degrees of intervertebral foraminal narrowing with nerve root compression. Enlarged left lobe of the thyroid. Ultrasound evaluation advised. Lumbar Spine CT 09/01/24 21:36 IMPRESSION: No acute osseous abnormality . Multilevel degenerative disc disease. Intraoperative X-Ray 09/02/24 15:51 IMPRESSION: 1. Intertrochanteric fracture of proximal left femur status post open reduction internal fixation. Abdomen Ultrasound 09/06/24 09:35 IMPRESSION: 1. 1.2 cm cyst in the pancreas, likely a pseudocyst given the findings of chronic pancreatitis on the prior CT. Labs Labs: Laboratory Results - last 24 hr 09/06/24 09/06/24 09/07/24 17:03 19:49 05:24 WBC 6.9 RBC 3.16 L Hgb 9.1 L Hct 30.2 L MCV 95.6 MCH 28.8 MCHC 30.1 L RDW 15.0 H Plt Count 176 MPV 12.1 H Immature Gran % (Auto) 2.3 H Neut % (Auto) 60.0 Lymph % (Auto) 22.3 [place] % (Auto) 10.1 H Eos % (Auto) 4.0 Baso % (Auto) 1.3 H Lymph # (Auto) 1.54 [place] # (Auto) 0.7 H Eos # (Auto) 0.3 Baso # (Auto) 0.1 Abs Immat Gran (auto) 0.16 H Absolute Neuts (auto) 4.2 Absolute Nucleated RBC 0.110 H Nucleated RBC % 1.6 H % Immature Plt Fraction 8.4 Sodium 131 L Potassium 4.4 Chloride 104 Carbon Dioxide 21 L Anion Gap 6 BUN 43 H Creatinine 1.30 H Estim Creat Clear Calc 29 Estimated GFR 40 L Glucose 148 H POC Capillary Glucose 142 H 206 H Calcium 7.8 L Total Bilirubin 1.0 AST 216 H ALT 308 H Alkaline Phosphatase 72 Total Protein 6.0 L Albumin 2.8 L 09/07/24 09/07/24 08:32 12:14 WBC RBC Hgb Hct MCV MCH MCHC RDW Plt Count MPV Immature Gran % (Auto) Neut % (Auto) Lymph % (Auto) [place] % (Auto) Eos % (Auto) Baso % (Auto) Lymph # (Auto) [place] # (Auto) Eos # (Auto) Baso # (Auto) Abs Immat Gran (auto) Absolute Neuts (auto) Absolute Nucleated RBC Nucleated RBC % % Immature Plt Fraction Sodium Potassium Chloride Carbon Dioxide Anion Gap BUN Creatinine Estim Creat Clear Calc Estimated GFR Glucose POC Capillary Glucose 152 H 240 H Calcium Total Bilirubin AST ALT Alkaline Phosphatase Total Protein Albumin
[2024-09-07 17:47] LABS: Glucose Point of Care 197 mg/dl (65-105)
[2024-09-07 19:23] VITALS: BP 126/68; PULSE 75; RESP 20; TEMP 36.5; O2SAT 94
[2024-09-07 21:06] LABS: Glucose Point of Care 254 mg/dl (65-105)
[2024-09-08] MEDS: ACETAMINOPHEN 325 MG TABLET 650 MG PO ×3 (00:14→12:48)
[2024-09-08 07:18] LABS: Basophils Absolute Auto 0.1 K/mm3 (0.0-0.1); Basophils Percent Auto 0.9 % (0.2-1.2); Eosinophils Absolute Auto 0.4 K/mm3 (0-0.3); Eosinophils Percent Auto 4.6 % (0-4.4); Hematocrit 30.3 % (37.0-47.0); Hemoglobin 9.4 g/dL (12.0-15.0); Immature Granulocyte Absolute 0.18 K/mm3 (0.00-0.031); Immature Granulocyte Percent A 2.4 % (0-0.5); Lymphocytes Absolute Auto 1.75 K/mm3 (0.9-3.2); Lymphocytes Percent Auto 23.2 % (18.3-44.2); Mean Corpuscular Volume 93.5 fl (80-100); Mean Platelet Volume 11.4 fl (7.4-10.4); Monocytes Absolute Auto 0.8 K/mm3 (0.1-0.6); Monocytes Percent Auto 10.1 % (2.6-8.5); Neutrophils Absolute Auto 4.4 K/mm3 (1.3-6.7); Neutrophils Percent Auto 58.8 % (45.5-73.1); Nucleated Red Blood Cells Perc 1.5 % (0.0-0.2); Platelet Count Result 246 k/mm3 (150-375); Red Blood Count 3.24 M/mm3 (4.2-5.4); Red Cell Distribution Width 15.2 % (11.5-14.5); White Blood Count 7.5 K/mm3 (4.5-10.0)
[2024-09-08 08:16] LABS: Glucose Point of Care 187 mg/dl (65-105)
[2024-09-08 08:27] LABS: Alanine Aminotransferase 332 U/L (6-35); Albumin Level 2.8 g/dL (3.5-5.1); Alkaline Phosphatase 96 U/L (38-126); Anion Gap 5 mmol/L (4-12); Aspartate Amino Transferase 165 U/L (14-36); Bilirubin,Total 0.6 mg/dL (0.2-1.3); Blood Urea Nitrogen 39 mg/dL (7-17); Calcium 8.1 mg/dL (8.4-10.2); Carbon Dioxide 25 mmol/L (22-30); Chloride 104 mmol/L (98-107); Estimated CRCL calculation 29 ml/min; Estimated Glomerular Filt Rate 40; Glucose 183 mg/dL (65-110); Potassium 4.1 mmol/L (3.4-5.0); Sodium 134 mmol/L (137-145)
[2024-09-08 08:30] VITALS: BP 113/70; PULSE 73
[2024-09-08] MEDS: ATORVASTATIN 40 MG TABLET 80 MG PO (09:04)
[2024-09-08] MEDS: OMEGA 3 POLYUNSAT FATTY ACIDS 1 GM CAP PO (09:04)
[2024-09-08 09:05] VITALS: PULSE 73
[2024-09-08] MEDS: FAMOTIDINE 20 MG TABLET PO (09:05)
[2024-09-08] MEDS: DULoxetine HCL 30 MG CAPSULE.DR PO (09:05)
[2024-09-08] MEDS: METOPROLOL SUCCINATE EXT REL 50 MG TABCR PO (09:05)
[2024-09-08] MEDS: HEPARIN SODIUM 5,000 UNITS/ML VIAL 5000 UNITS SUB-Q (09:05)
[2024-09-08] MEDS: VITAMIN B COMPLEX CAPSULE 1 CAP PO (09:05)
[2024-09-08] MEDS: FOLIC ACID 0.4 MG TABLET 0.8 MG PO (09:05)
[2024-09-08] MEDS: FUROSEMIDE 40 MG TABLET PO (09:05)
[2024-09-08] MEDS: CHOLECALCIFEROL 1,000 UNITS TABLET 1000 UNITS PO (09:05)
[2024-09-08] MEDS: oxyCODONE HCL (*CRX) 5 MG TAB IR PO (09:09)
--- NOTE | 2024-09-08 11:52 | PM.IMPN ---
Subjective Date/time seen: 09/08/24 11:52 Review of Systems Review of Systems: All systems reviewed & are unremarkable except as noted in HPI and below Objective Data Vital Signs Vital Signs: Vital Signs - 24 hr 09/07/24 14:00 09/07/24 19:23 09/07/24 20:00 Temperature 98.2 F 97.7 F Pulse Rate 82 75 Respiratory Rate 15 20 Blood Pressure 118/84 126/68 Pulse Oximetry 97 94 Oxygen Delivery Room Air 09/08/24 08:30 09/08/24 09:05 09/08/24 09:25 Temperature Pulse Rate 73 73 Respiratory Rate Blood Pressure 113/70 Pulse Oximetry Oxygen Delivery Room Air Intake/Output Intake/Output: Intake & Output 09/05/24 09/06/24 09/07/24 09/08/24 23:59 23:59 23:59 23:59 Intake Total 1295 690 985 240 Balance 1295 690 985 240 Meds/Results Medications: Active Medications Generic Name Dose Route Start Last Admin Trade Name Freq PRN Reason Stop Dose Admin Acetaminophen 650 mg 09/02/24 18:00 09/08/24 07:02 Acetaminophen 325 Mg Tablet PO 650 mg Q6HR NELY Administration Atorvastatin Calcium 80 mg 09/02/24 09:00 09/08/24 09:04 Atorvastatin 40 Mg Tablet PO 80 mg DAILY NELY Administration Bisacodyl 10 mg 09/01/24 22:42 Bisacodyl 10 Mg Suppository RECTAL ONCE PRN Constipation Dextrose 12.5 gm 09/02/24 09:19 Dextrose 50% 25 Gm/50 Ml Syringe IV PUSH PRN PRN Hypoglycemia Protocol Docusate Sodium 100 mg 09/02/24 09:00 09/08/24 08:56 Docusate Sodium 100 Mg Capsule PO Not Given Q12HR NELY Duloxetine HCl 30 mg 09/02/24 09:00 09/08/24 09:05 Duloxetine Hcl 30 Mg Capsule.Dr PO 30 mg DAILY NELY Administration Famotidine 20 mg 09/02/24 21:00 09/08/24 09:05 Famotidine 20 Mg Tablet PO 20 mg Q12HR NELY Administration Fish Oil 1 gm 09/02/24 09:00 09/08/24 09:04 [place] 3 Polyunsat Fatty Acids 1 Gm Cap PO 1 gm QAM NELY Administration Folic Acid 0.8 mg 09/02/24 09:00 09/08/24 09:05 Folic Acid 0.4 Mg Tablet PO 0.8 mg DAILY NELY Administration Furosemide 40 mg 09/03/24 11:15 09/08/24 09:05 Furosemide 40 Mg Tablet PO 40 mg DAILY NELY Administration Glucagon 1 mg 09/02/24 09:19 Glucagon For Inj 1 Mg Vial IM PRN PRN Hypoglycemia Protocol Glucose 15 gm 09/02/24 09:19 Glucose Oral Gel 15 Gm Of Glucse In 37.5 Gm Tube PO PRN PRN Hypoglycemia Protocol Heparin Sodium (Porcine) 5,000 units 09/02/24 09:00 09/08/24 09:05 Heparin Sodium 5,000 Units/Ml Vial SUB-Q 5,000 units Q12HR NELY Administration Dextrose 1,000 mls @ 100 mls/hr 09/02/24 09:19 Dextrose 5% 1,000 Ml IVPB PRN PRN Hypoglycemia Protocol Insulin Aspart 3 - 6 units 09/02/24 12:00 09/08/24 08:29 Insulin Aspart (*Bkc) 100 Units/Ml SUB-Q Not Given TIDWM NELY Protocol Insulin Aspart 1 - 3 units 09/02/24 21:00 09/07/24 20:00 Insulin Aspart (*Bkc) 100 Units/Ml SUB-Q 2 units HS NELY Administration Protocol Metoprolol Succinate 50 mg 09/02/24 09:00 09/08/24 09:05 Metoprolol Succinate Ext Rel 50 Mg Tabcr PO 50 mg DAILY NELY Administration Morphine Sulfate 4 mg 09/01/24 22:11 09/02/24 17:45 Morphine Sulfate (*Crx) 4 Mg/Ml Inj IV PUSH 4 mg Q4H PRN Administration Pain Rated 7-10 Naloxone HCl 0.1 mg 09/02/24 17:00 Naloxone Hcl 0.4 Mg/Ml Vial IV PUSH Q2M PRN Opiate Reversal Ondansetron HCl 4 mg 09/01/24 22:42 09/06/24 15:18 Ondansetron Inj 4 Mg/2 Ml Vial IV PUSH 4 mg Q6H PRN Administration Nausea And Vomiting Oxycodone HCl 2.5 mg 09/02/24 17:00 Oxycodone Hcl (*Crx) 2.5 Mg Tab Ir PO Q4H PRN Pain Rated 4-6 Oxycodone HCl 5 mg 09/02/24 17:00 09/08/24 09:09 Oxycodone Hcl (*Crx) 5 Mg Tab Ir PO 5 mg Q4H PRN Administration Pain Rated 7-10 Polyethylene Glycol 17 gm 09/03/24 09:00 09/08/24 08:56 Polyethylene Glycol 3350 17 Gm Powd.Pack PO Not Given QAM NELY Senna/Docusate Sodium 2 tab 09/02/24 17:00 09/08/24 08:56 Senna/Docusate Sodium Tablet PO Not Given BID NELY Tramadol HCl 50 mg 09/02/24 17:00 Tramadol Hcl (*Crx) 50 Mg Tablet PO Q4H PRN Pain Rated 1-3 Vitamin B Complex 1 cap 09/02/24 09:00 09/08/24 09:05 Vitamin B Complex Capsule PO 1 cap Q48H NELY Administration Vitamin D 1,000 units 09/02/24 09:00 09/08/24 09:05 Cholecalciferol 1,000 Units Tablet PO 1,000 units DAILY NELY Administration Radiology Results: ITS Impressions Chest X-Ray 09/01/24 17:39 IMPRESSION: Cardiomegaly. Possible atelectasis in the left lung base. Hip/Pelvis X-Ray 09/01/24 17:48 IMPRESSION: Intertrochanteric fracture. Head CT 09/01/24 17:59 IMPRESSION: No acute intracranial findings. Cervical Spine CT 09/01/24 19:29 IMPRESSION: No acute osseous abnormality cervical spine. Multilevel degenerative disc disease with variable degrees of intervertebral foraminal narrowing with nerve root compression. Enlarged left lobe of the thyroid. Ultrasound evaluation advised. Lumbar Spine CT 09/01/24 21:36 IMPRESSION: No acute osseous abnormality . Multilevel degenerative disc disease. Intraoperative X-Ray 09/02/24 15:51 IMPRESSION: 1. Intertrochanteric fracture of proximal left femur status post open reduction internal fixation. Abdomen Ultrasound 09/06/24 09:35 IMPRESSION: 1. 1.2 cm cyst in the pancreas, likely a pseudocyst given the findings of chronic pancreatitis on the prior CT. Labs Labs: Laboratory Results - last 24 hr 09/07/24 09/07/24 09/07/24 12:14 17:37 19:29 WBC RBC Hgb Hct MCV MCH MCHC RDW Plt Count MPV Immature Gran % (Auto) Neut % (Auto) Lymph % (Auto) [place] % (Auto) Eos % (Auto) Baso % (Auto) Lymph # (Auto) [place] # (Auto) Eos # (Auto) Baso # (Auto) Abs Immat Gran (auto) Absolute Neuts (auto) Absolute Nucleated RBC Nucleated RBC % Sodium Potassium Chloride Carbon Dioxide Anion Gap BUN Creatinine Estim Creat Clear Calc Estimated GFR Glucose POC Capillary Glucose 240 H 197 H 254 H Calcium Total Bilirubin AST ALT Alkaline Phosphatase Total Protein Albumin 09/08/24 09/08/24 05:23 08:12 WBC 7.5 RBC 3.24 L Hgb 9.4 L Hct 30.3 L MCV 93.5 MCH 29.0 MCHC 31.0 L RDW 15.2 H Plt Count 246 MPV 11.4 H Immature Gran % (Auto) 2.4 H Neut % (Auto) 58.8 Lymph % (Auto) 23.2 [place] % (Auto) 10.1 H Eos % (Auto) 4.6 H Baso % (Auto) 0.9 Lymph # (Auto) 1.75 [place] # (Auto) 0.8 H Eos # (Auto) 0.4 H Baso # (Auto) 0.1 Abs Immat Gran (auto) 0.18 H Absolute Neuts (auto) 4.4 Absolute Nucleated RBC 0.110 H Nucleated RBC % 1.5 H Sodium 134 L Potassium 4.1 Chloride 104 Carbon Dioxide 25 Anion Gap 5 BUN 39 H Creatinine 1.30 H Estim Creat Clear Calc 29 Estimated GFR 40 L Glucose 183 H POC Capillary Glucose 187 H Calcium 8.1 L Total Bilirubin 0.6 AST 165 H ALT 332 H Alkaline Phosphatase 96 Total Protein 6.0 L Albumin 2.8 L
[2024-09-08 11:58] LABS: Glucose Point of Care 297 mg/dl (65-105)
--- NOTE | 2024-09-08 12:18 | PM.PNORT ---
Progress Note: A&P Assessment and Plan (1) Closed intertrochanteric fracture of left hip: Qualifiers: Encounter type: initial encounter Fracture alignment: nondisplaced Qualified Code(s): S72.145A - Nondisplaced intertrochanteric fracture of left femur, initial encounter for closed fracture Code(s): S72.142A - Displaced intertrochanteric fracture of left femur, initial encounter for closed fracture Status: Acute Assessment and Plan: POD #6: ORIF left femur intertrochanteric fracture with cephalomedullary nail. Patient progressing well. Ambulating with a walker and is is ambulating better. Pain controlled but worse with motion. No changes in care plan. Patient will benefit from rehab at discharge. Previously a community ambulator and she would like to return to that. Okay for discharge from orthopedic standpoint once medically cleared. Awaiting discharge planning. Ortho instructions: D/C to SNF/rehab Xray and follow up in office in 6 weeks. Please call [facility] to make an appointment. Wound Care: remove ronnell at 2 weeks post op. Daily dressing changes until healed. PT: Weight bearing as tolerated. DVT prophylaxis: continue heparin for 30 days total Pain medication: Oxycodone Subjective Subjective Date/Time Seen: 09/08/24 12:18 Interval history: Patient notes she is getting around better today and has walked around her room with the walker. Pain improving. She gets tired easily. No other complaints. Review of Systems Review of Systems: All systems reviewed & are unremarkable except as noted in HPI and below Exam Narrative: Overweight 78 y/o female. Resting comfortably in bed. Wearing compression socks bilaterally. Dressing dry and intact with no drainage. Mild swelling. No edema. No ecchymosis. No erythema. No hematoma. Range of motion limited due to pain. No calf tenderness. Thigh nontender. No varicosities. Distal pulses palpable. Did not wiggle left toes. Objective Data Vital Signs Vital Signs: Vital Signs - 24 hr 09/07/24 14:00 09/07/24 19:23 09/07/24 20:00 Temperature 98.2 F 97.7 F Pulse Rate 82 75 Respiratory Rate 15 20 Blood Pressure 118/84 126/68 Pulse Oximetry 97 94 Oxygen Delivery Room Air 09/08/24 08:30 09/08/24 09:05 09/08/24 09:25 Temperature Pulse Rate 73 73 Respiratory Rate Blood Pressure 113/70 Pulse Oximetry Oxygen Delivery Room Air Intake/Output Intake/Output: Intake & Output 09/05/24 09/06/24 09/07/24 09/08/24 23:59 23:59 23:59 23:59 Intake Total 1295 690 985 240 Balance 1295 690 985 240 Meds/Results Medications: Active Medications Generic Name Dose Route Start Last Admin Trade Name Freq PRN Reason Stop Dose Admin Acetaminophen 650 mg 09/02/24 18:00 09/08/24 07:02 Acetaminophen 325 Mg Tablet PO 650 mg Q6HR NELY Administration Atorvastatin Calcium 80 mg 09/02/24 09:00 09/08/24 09:04 Atorvastatin 40 Mg Tablet PO 80 mg DAILY NELY Administration Bisacodyl 10 mg 09/01/24 22:42 Bisacodyl 10 Mg Suppository RECTAL ONCE PRN Constipation Dextrose 12.5 gm 09/02/24 09:19 Dextrose 50% 25 Gm/50 Ml Syringe IV PUSH PRN PRN Hypoglycemia Protocol Docusate Sodium 100 mg 09/02/24 09:00 09/08/24 08:56 Docusate Sodium 100 Mg Capsule PO Not Given Q12HR NELY Duloxetine HCl 30 mg 09/02/24 09:00 09/08/24 09:05 Duloxetine Hcl 30 Mg Capsule.Dr PO 30 mg DAILY NELY Administration Famotidine 20 mg 09/02/24 21:00 09/08/24 09:05 Famotidine 20 Mg Tablet PO 20 mg Q12HR NELY Administration Fish Oil 1 gm 09/02/24 09:00 09/08/24 09:04 [place] 3 Polyunsat Fatty Acids 1 Gm Cap PO 1 gm QAM NELY Administration Folic Acid 0.8 mg 09/02/24 09:00 09/08/24 09:05 Folic Acid 0.4 Mg Tablet PO 0.8 mg DAILY NELY Administration Furosemide 40 mg 09/03/24 11:15 09/08/24 09:05 Furosemide 40 Mg Tablet PO 40 mg DAILY NELY Administration Glucagon 1 mg 09/02/24 09:19 Glucagon For Inj 1 Mg Vial IM PRN PRN Hypoglycemia Protocol Glucose 15 gm 09/02/24 09:19 Glucose Oral Gel 15 Gm Of Glucse In 37.5 Gm Tube PO PRN PRN Hypoglycemia Protocol Heparin Sodium (Porcine) 5,000 units 09/02/24 09:00 09/08/24 09:05 Heparin Sodium 5,000 Units/Ml Vial SUB-Q 5,000 units Q12HR NELY Administration Dextrose 1,000 mls @ 100 mls/hr 09/02/24 09:19 Dextrose 5% 1,000 Ml IVPB PRN PRN Hypoglycemia Protocol Insulin Aspart 3 - 6 units 09/02/24 12:00 09/08/24 08:29 Insulin Aspart (*Bkc) 100 Units/Ml SUB-Q Not Given TIDWM [facility] Protocol Insulin Aspart 1 - 3 units 09/02/24 21:00 09/07/24 20:00 Insulin Aspart (*Bkc) 100 Units/Ml SUB-Q 2 units HS NELY Administration Protocol Metoprolol Succinate 50 mg 09/02/24 09:00 09/08/24 09:05 Metoprolol Succinate Ext Rel 50 Mg Tabcr PO 50 mg DAILY NELY Administration Morphine Sulfate 4 mg 09/01/24 22:11 09/02/24 17:45 Morphine Sulfate (*Crx) 4 Mg/Ml Inj IV PUSH 4 mg Q4H PRN Administration Pain Rated 7-10 Naloxone HCl 0.1 mg 09/02/24 17:00 Naloxone Hcl 0.4 Mg/Ml Vial IV PUSH Q2M PRN Opiate Reversal Ondansetron HCl 4 mg 09/01/24 22:42 09/06/24 15:18 Ondansetron Inj 4 Mg/2 Ml Vial IV PUSH 4 mg Q6H PRN Administration Nausea And Vomiting Oxycodone HCl 2.5 mg 09/02/24 17:00 Oxycodone Hcl (*Crx) 2.5 Mg Tab Ir PO Q4H PRN Pain Rated 4-6 Oxycodone HCl 5 mg 09/02/24 17:00 09/08/24 09:09 Oxycodone Hcl (*Crx) 5 Mg Tab Ir PO 5 mg Q4H PRN Administration Pain Rated 7-10 Polyethylene Glycol 17 gm 09/03/24 09:00 09/08/24 08:56 Polyethylene Glycol 3350 17 Gm Powd.Pack PO Not Given QAM [facility] Senna/Docusate Sodium 2 tab 09/02/24 17:00 09/08/24 08:56 Senna/Docusate Sodium Tablet PO Not Given BID [facility] Tramadol HCl 50 mg 09/02/24 17:00 Tramadol Hcl (*Crx) 50 Mg Tablet PO Q4H PRN Pain Rated 1-3 Vitamin B Complex 1 cap 09/02/24 09:00 09/08/24 09:05 Vitamin B Complex Capsule PO 1 cap Q48H NELY Administration Vitamin D 1,000 units 09/02/24 09:00 09/08/24 09:05 Cholecalciferol 1,000 Units Tablet PO 1,000 units DAILY NELY Administration Radiology Results: ITS Impressions Chest X-Ray 09/01/24 17:39 IMPRESSION: Cardiomegaly. Possible atelectasis in the left lung base. Hip/Pelvis X-Ray 09/01/24 17:48 IMPRESSION: Intertrochanteric fracture. Head CT 09/01/24 17:59 IMPRESSION: No acute intracranial findings. Cervical Spine CT 09/01/24 19:29 IMPRESSION: No acute osseous abnormality cervical spine. Multilevel degenerative disc disease with variable degrees of intervertebral foraminal narrowing with nerve root compression. Enlarged left lobe of the thyroid. Ultrasound evaluation advised. Lumbar Spine CT 09/01/24 21:36 IMPRESSION: No acute osseous abnormality . Multilevel degenerative disc disease. Intraoperative X-Ray 09/02/24 15:51 IMPRESSION: 1. Intertrochanteric fracture of proximal left femur status post open reduction internal fixation. Abdomen Ultrasound 09/06/24 09:35 IMPRESSION: 1. 1.2 cm cyst in the pancreas, likely a pseudocyst given the findings of chronic pancreatitis on the prior CT. Labs Labs: Laboratory Results - last 24 hr 09/07/24 09/07/24 09/07/24 12:14 17:37 19:29 WBC RBC Hgb Hct MCV MCH MCHC RDW Plt Count MPV Immature Gran % (Auto) Neut % (Auto) Lymph % (Auto) [place] % (Auto) Eos % (Auto) Baso % (Auto) Lymph # (Auto) [place] # (Auto) Eos # (Auto) Baso # (Auto) Abs Immat Gran (auto) Absolute Neuts (auto) Absolute Nucleated RBC Nucleated RBC % Sodium Potassium Chloride Carbon Dioxide Anion Gap BUN Creatinine Estim Creat Clear Calc Estimated GFR Glucose POC Capillary Glucose 240 H 197 H 254 H Calcium Total Bilirubin AST ALT Alkaline Phosphatase Total Protein Albumin 09/08/24 09/08/24 09/08/24 05:23 08:12 11:56 WBC 7.5 RBC 3.24 L Hgb 9.4 L Hct 30.3 L MCV 93.5 MCH 29.0 MCHC 31.0 L RDW 15.2 H Plt Count 246 MPV 11.4 H Immature Gran % (Auto) 2.4 H Neut % (Auto) 58.8 Lymph % (Auto) 23.2 [place] % (Auto) 10.1 H Eos % (Auto) 4.6 H Baso % (Auto) 0.9 Lymph # (Auto) 1.75 [place] # (Auto) 0.8 H Eos # (Auto) 0.4 H Baso # (Auto) 0.1 Abs Immat Gran (auto) 0.18 H Absolute Neuts (auto) 4.4 Absolute Nucleated RBC 0.110 H Nucleated RBC % 1.5 H Sodium 134 L Potassium 4.1 Chloride 104 Carbon Dioxide 25 Anion Gap 5 BUN 39 H Creatinine 1.30 H Estim Creat Clear Calc 29 Estimated GFR 40 L Glucose 183 H POC Capillary Glucose 187 H 297 H Calcium 8.1 L Total Bilirubin 0.6 AST 165 H ALT 332 H Alkaline Phosphatase 96 Total Protein 6.0 L Albumin 2.8 L
[2024-09-08] MEDS: INSULIN ASPART (*BKC) 100 UNITS/ML SUB-Q (12:48)
[2024-09-08 14:00] VITALS: BP 113/60; PULSE 71; RESP 12; TEMP 36.7; O2SAT 95
--- NOTE | 2024-09-08 14:18 | P.DS_ITS ---
DS: Admitting Diagnosis Discharge Date 09/08/2024 Admitting Diagnosis Fall DS: Discharge Diagnosis Discharge Diagnosis (1) Closed intertrochanteric fracture of left hip: Qualifiers: Encounter type: initial encounter Fracture alignment: nondisplaced Qualified Code(s): S72.145A - Nondisplaced intertrochanteric fracture of left femur, initial encounter for closed fracture Code(s): S72.142A - Displaced intertrochanteric fracture of left femur, initial encounter for closed fracture Status: Acute (2) Stage 3 chronic kidney disease: Code(s): N18.3 - Chronic kidney disease, stage 3 (moderate) Status: Acute (3) Elevated liver enzymes: Code(s): R74.8 - Abnormal levels of other serum enzymes Status: Inactive (4) Long-term insulin use in type 2 diabetes: Code(s): E11.9 - Type 2 diabetes mellitus without complications; 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 * Head CT no acute intracranial findings. * Cervical spine: No acute osseous abnormality cervical spine. Multilevel degenerative disc disease with variable degrees of intervertebral foraminal narrowing with nerve root compression. Enlarged left lobe of the thyroid. Ultrasound evaluation advised. * Lumbar spine: no acute osseous abnormality and multilevel degenerative disc disease * EKG SR 92 QTc 504 * Abdominal ultrasound 1.2 cm cyst in the pancreas, likely a pseudocyst given the findings of chronic pancreatitis on the prior CT. * Surgery on 09/02/24: ORIF left femur intertrochanteric fracture with cephalomedullary nail. Dressing C/D/I. * Pain control * Liver enzymes improved. * Ancef 2 grams IVPB q 8 for 3 doses post surgery completed. * PT/OT * Patient will need rehab at discharge Status at Discharge Functional status at discharge: uses cane/walker Overall status at discharge: patient is not back to baseline Time Spent with Patient Time attestation: Total time spent providing and/or coordinating discharge services: Time spent: Greater than 30 minutes Exam Const: General: no acute distress and uncomfortable Other: Pain is a 3 in left hip, constant, and aching. Resp: Effort & Inspection: normal respiratory effort Auscultation: clear to auscultation bilaterally Cardio: Rate: regular rate Rhythm: regular rhythm GI: GI Palp: Yes Soft to palpation Auscultation: normal bowel sounds : Other: voiding without difficulty Skin: Other: Left hip dressing with no drainage. Extrem: General: normal to inspection Psych: Mental Status: mental status grossly normal Affect: normal affect DS: Data Data Completed and Pending Labs on day of discharge: Labs from last 24 hours 09/08/24 09/08/24 09/08/24 11:56 08:12 05:23 WBC 7.5 RBC 3.24 L Hgb 9.4 L Hct 30.3 L MCV 93.5 MCH 29.0 MCHC 31.0 L RDW 15.2 H Plt Count 246 MPV 11.4 H Immature Gran % (Auto) 2.4 H Neut % (Auto) 58.8 Lymph % (Auto) 23.2 Meade % (Auto) 10.1 H Eos % (Auto) 4.6 H Baso % (Auto) 0.9 Lymph # (Auto) 1.75 Meade # (Auto) 0.8 H Eos # (Auto) 0.4 H Baso # (Auto) 0.1 Abs Immat Gran (auto) 0.18 H Absolute Neuts (auto) 4.4 Absolute Nucleated RBC 0.110 H Nucleated RBC % 1.5 H Sodium 134 L Potassium 4.1 Chloride 104 Carbon Dioxide 25 Anion Gap 5 BUN 39 H Creatinine 1.30 H Estim Creat Clear Calc 29 Estimated GFR 40 L Glucose 183 H POC Capillary Glucose 297 H 187 H Calcium 8.1 L Total Bilirubin 0.6 AST 165 H ALT 332 H Alkaline Phosphatase 96 Total Protein 6.0 L Albumin 2.8 L 09/07/24 09/07/24 19:29 17:37 WBC RBC Hgb Hct MCV MCH MCHC RDW Plt Count MPV Immature Gran % (Auto) Neut % (Auto) Lymph % (Auto) Meade % (Auto) Eos % (Auto) Baso % (Auto) Lymph # (Auto) Meade # (Auto) Eos # (Auto) Baso # (Auto) Abs Immat Gran (auto) Absolute Neuts (auto) Absolute Nucleated RBC Nucleated RBC % Sodium Potassium Chloride Carbon Dioxide Anion Gap BUN Creatinine Estim Creat Clear Calc Estimated GFR Glucose POC Capillary Glucose 254 H 197 H Calcium Total Bilirubin AST ALT Alkaline Phosphatase Total Protein Albumin Discharge Plan Discharge Attending physician on discharge: Mohan Salmeron Consulting providers: Roque Culver Discharging Clinician: Kami Bennett Anticipated Discharge Date/Time: 09/08/24 15:00 Patient Disposition: SNF Activity: other - see discharge instructions Diet: diabetic Wound Care Instructions: change dressing daily and other - see discharge instructions Discharge Instructions: Ortho instructions: * D/C to SNF/rehab * Xray and follow up in office in 6 weeks. Please call [facility] to make an appointment. * Wound Care: remove ronnell at 2 weeks post op. Daily dressing changes until healed. * PT: Weight bearing as tolerated. * DVT prophylaxis: continue heparin for 30 days total * Pain medication: Oxycodone Patient Instructions: Heart Failure (DC), Pain Management (DC), ORIF of Hip Fracture (DC) Patient Language: Portuguese Stand Alone Forms: General Discharge Information Follow-up/Referrals: Neftali Torres MD [Primary Care Provider] - 2 Weeks Discharge Medications: New oxycodone-acetaminophen 5-325 mg tablet 1 - 2 tablet PO Q4-6H PRN (Reason: pain) Qty: 30 0RF heparin (porcine) 5,000 unit/mL Solution 5,000 unit subcut Q12HR 24 Days Qty: 48 0RF sennosides-docusate sodium [Senokot-S] 8.6-50 mg Tablet 2 tab-cap PO BID Qty: 28 0RF Continued folic acid 800 mcg tablet 0.8 mg PO DAILY duloxetine 20 mg capsule,delayed release(DR/EC) 30 mg PO DAILY Fish Oil 100-160-1,000 mg capsule 1 cap PO DAILY atorvastatin 80 mg tablet 80 mg PO DAILY Ozempic 1 mg/dose (4 mg/3 mL) pen injector 1 mg subcut WEEKLY 90 Days Qty: 9 4RF Rx Instructions: administer on saturday aspirin [Adult Low Dose Aspirin] 81 mg tablet,delayed release (DR/EC) 81 mg PO DAILY metoprolol succinate 50 mg tablet extended release 24 hr 50 mg PO DAILY vitamin B complex [B Complex-Vitamin B12] Tablet 1 tablet PO EVERY OTHER DAY Rx Instructions: 1000 mg every other day cholecalciferol (vitamin D3) [Vitamin D3] 25 mcg (1,000 unit) Capsule 25 mcg PO DAILY furosemide 40 mg tablet 40 mg PO DAILY (DME) FreeStyle Anne-Marie 2 Sensor Kit See Rx Instructions .Route Qty: 6 1RF Rx Instructions: Use to monitor glucose; change every 14 days dapagliflozin propanediol [Farxiga] 10 mg tablet 10 mg PO DAILY Qty: 90 1RF Date of admission: 09/02/24 09:46 Primary Care Provider: Neftali Torres Admitting Provider: Payam Langley Attending physician on admission: Payam Langley Condition: Stable Hospitalist MIPS Heart Failure (Exclusion) Patient has history of Heart Transplant or Left Ventricular Assistive Device?: No IF YES, STOP HERE Heart Failure (Qualifier) Patient has current or prior documentation of LVEF less than or equal to 40%, or mod/servere depressed LVSF?: No IF NO, STOP HERE
== END 2024-09-08 15:50 | DRG 482 ==
LOC: ANHED 22:34 → ANH3MED 23:10
PROVIDERS: Emergency Medicine; Orthopaedic Surgery; Physician Assistant Surgical; Admitting Provider Internal Medicine; Emergency Provider Physician Assistant; PCP Internal Medicine; Visit Provider Nurse Practitioner Family
PROC: 0QS734Z Reposition Left Upper Femur with Internal Fixation Device, Percutaneous Approach (ICD-10-PCS; CPT 27245; principal; 2024-09-02 13:00)
DX: S72.142A Displaced intertrochanteric fracture of left femur, initial encounter for closed fracture (principal); W19.XXXA Unspecified fall, initial encounter; E11.22 Type 2 diabetes mellitus with diabetic chronic kidney disease; E78.5 Hyperlipidemia, unspecified; I25.10 Atherosclerotic heart disease of native coronary artery without angina pectoris; I65.22 Occlusion and stenosis of left carotid artery; I25.5 Ischemic cardiomyopathy; I12.9 Hypertensive chronic kidney disease with stage 1 through stage 4 chronic kidney disease, or unspecified chronic kidney disease; N18.30 Chronic kidney disease, stage 3 unspecified; R74.8 Abnormal levels of other serum enzymes; Z98.41 Cataract extraction status, right eye; Z98.42 Cataract extraction status, left eye; Z95.5 Presence of coronary angioplasty implant and graft; Z79.85 Long-term (current) use of injectable non-insulin antidiabetic drugs; Z79.82 Long term (current) use of aspirin
CPT/HCPCS: 36415; 70450; 71045; 72125; 72131; 73502; 76705; 80053; 80074; 82948; 84484; 85025; 85055; 85610; 85730; 86850; 86900; 86901; 93005; 96372; 96374; 96375; 96376; 97110; 97116; 97161; 97166; 97530; 97535; 99199; 99285; A9270; C1713; G0378; J0690; J1100; J1171; J1644; J1815; J2270; J2371; J2405; J2704; J3010; J7030; J7120

== ENCOUNTER 2024-10-28 13:00 | Outpatient (RCR) | payer MEDICARE, SELFPAY ==
--- NOTE | 2024-10-28 13:53 | OPREHPOC ---
Outpatient Therapy Plan of Care This is a Multidisciplinary Plan of Care that may contain components documented by all disciplines (PT, OT, and ST.) PT Problem 1 PT Problem #1 Knowledge Deficit PT Goal 1 Goal / Goal Update 1. independent and compliant with HEP Target Visit 6 PT Problem 2 PT Problem #2 Impaired Strength PT Goal 1 Goal / Goal Update 1. improve L hip flex to 4-/5 or better overall 2. improve L knee strength to 4+/5 or better oveall Target Visit 12 PT Problem 3 PT Problem #3 Impaired Balance PT Goal 1 Goal / Goal Update 1. TUG to be completed in 14 seconds or less 2. 5x sit to stand to be completed in 10 seconds or less 3. Tinetti to display low fall risk. Target Visit 12 PT Problem 4 PT Problem #4 Impaired Functional Mobility PT Goal 1 Goal / Goal Update 1. patient to ambulate without a cane safely and confidently around the community and clinic. 2. patient to complete 6 minute walk test without rest for 700ft or more Target Visit 12
--- NOTE | 2024-10-28 13:53 | PTOPEVAL1 ---
Assessment and note entered by JT File, PT Evaluation Information Assessment Status Evaluation ICD-10 Condition Codes (PT) Difficulty Walking R26.2,Abnormalities of gait and mobility R26.9,Weakness R53.1 Onset 09/01/24 Subjective Information patient reports she fell and broke her L hip on . she had a pinning surgery of the L hip, and was sent home with home health. she has been released from home health, but reports the home health OT thought she should seek outpatient PT for issues with her balance and walking. she reports she was told by her surgeon she will always have a limp. she reports she has been doing home health since around erica time. she did have one fall since her fracture when her sugar bottomed out. Reported Pain Level Pain Score 0: Self Report Assessment PT Clinical Summary mrs. randall is a 78 yo woman who presents to skilled PT services for evaluation and treatment of unsteady gait and weakness from a fracture of the L hip back in august of 2024. she presents today with deficits in balance, ambulation endurance, and strength. she would benefit from continued skilled PT services to improve her objective/functional deficits and return to prior level functional activity performance and quality of life with greater confidence and less fall risk . Plan of Care Interventions Gait Training,Neuro Re-education,Patient/Caregiver Education,Therapeutic Activities,Therapeutic Exercise PT Services Indicated Yes Treatment Frequency and 2x weekly for 8 visits Duration These treatments will address the objective and functional deficits as defined above. The patient will be advanced safely and appropriately in order for the patient to progress towards his/her prior level of function. Additional exercises will be introduced and as well as a comprehensive home exercise program upon discharge, if needed, ?to ensure carryover of functional gains achieved in the clinic. This treatment plan has been reviewed and agreement upon by the patient.
--- NOTE | 2024-12-24 13:00 | PCPTNOTE ---
No call no show.
== END 2025-01-26 23:59 | disposition home or self-care (01) ==
LOC: CHSPT 13:00
PROVIDERS: Visit Provider Orthopaedic Surgery
DX: R26.2 Difficulty in walking, not elsewhere classified (principal); R26.9 Unspecified abnormalities of gait and mobility; R53.1 Weakness; Z87.81 Personal history of (healed) traumatic fracture; Z98.890 Other specified postprocedural states
CPT/HCPCS: 97110; 97112; 97150; 97161; 97530

== ENCOUNTER 2024-10-30 15:13 | Outpatient (CLI) | payer MEDICARE, SELFPAY ==
--- OUTSIDE RECORDS SUMMARY | 2024-10-30 15:16 | XMS_ITS | Clinical Summary ---
Author Organization [facility] Address [address] [place] [address]. [place] [address] Care Team Providers Care Pump Mechanic Name Role Phone Unavailable Primary Care Provider Unavailabl e Social History Tobacco Use Types Packs/Day Years Used Date Smoking Tobacco: Never Assessed Comments Unknown Sex and Gender Information Value Date Recorded Sex Assigned at Not on file Legal Sex Female 7:01 PM CDT Gender Identity Not on file Sexual Orientation Not on file Plan of Treatment Health Maintenance Due Date Last Done Comments Hepatitis C 12/18/1965 DTaP, Tdap and Td Vaccines ( 1 - Tdap) 12/18/1966 Zoster Vaccines (1 of 2) 12/18/1997 Dexa Scan (General) 12/18/2012 Pneumococcal Vaccine: 65+ Ye ars (1 of 1 - PCV) 12/18/2012 RSV Immunization or 60+ Years (1 - 1-dose 75+ series) 12/18/2022 COVID-19 Vaccine ( - 2023-2 5 season) 2024 Influenza Adult (#1) 2024 Meningococcal B Vaccine Aged Out No l onger eligible based on patient's age to complete this topic Meningococcal Vaccine Aged Out No tom gustabo eligible based on patient's age to complete this topic RSV Immunizations Under 20 Months Aged Out No longer eligible based on patient's age to complete this topic
--- OUTSIDE RECORDS SUMMARY | 2024-10-30 15:16 | XMS_ITS | Clinical Summary ---
Author Organization [facility] Jimena lucio [facility] Address [address] [facility] [place] [address] Care Team Providers Care Binder Folder Operator Name Role Phone Neftali Torres MD Primary Care Provider [phone] Allergies Active Allergy Reactions Criticality Noted Date Comments Codeine Other (See Comments) 02/23/2022 Tramadol Other (See Comments) 02/23/2022 Medications Farxiga 10 mg Tablet TAKE 1 TABLET BY MOUTH ONCE DAILY FOR 30 DAYS 2 Active furosemide (LASIX) 40 mg tablet 2 Active glimepiride (AMARYL) 2 mg tablet TAKE 1 TABLET BY MOUTH TWICE DAILY BEFORE MEAL(S) 2 Active rosuvastatin (CRESTOR) 20 mg tablet Take 20 mg by mouth daily. 2 Active Januvia 25 mg Tablet TAKE 1 TABLET BY MOUTH ONCE DAILY FOR 90 DAYS 2 Active Tresiba FlexTouch U-100 100 unit/mL (3 mL) pen syringe INJECT 30 UNITS SUBCUTANEOUSLY EVERY 24 HOURS 2 Active DULoxetine (CYMBALTA) 20 mg Capsule, Delayed Release(E.C.) TAKE 1 CAPSULE BY MOUTH ONCE DAILY IN THE EVENING 2 Active ALPRAZolam (XANAX) 0.25 mg tablet Take 0.25 mg by mouth nightly as needed for Anxiety. Taking half a pill as needed for anxiety. Active folic acid (FOLVITE) 1 mg tablet Take 1 tablet by mouth once daily 90 Tablet 4 Active Active Problems Problem Noted Date Diagnosed Date Secondary hypercoagulable state 02/23/2022 Encounters Date Type Department Care Team Description 10/22/2024 External Device Data [facility] ABSTRACTION Provider, Abstract 10/21/2024 External Device Data [facility] ABSTRACTION Provider, Abstract 10/20/2024 External Device Data [facility] ABSTRACTION Provider, Abstract 10/13/2024 External Device Data [facility] ABSTRACTION Provider, Abstract 08/19/2024 Refill [facility] [place] [id number] Srinivas Horn MD 08/18/2024 Orders Only [facility] [place] [address] Srinivas Horn MD 08/14/2024 Telephone [facility] [place] [address] Srinivas Horn MD lab work for appointment 08/13/2024 Orders Only [facility] [place] [address] Srinivas Horn MD from Last 3 Months Family History Medical History Relation Name Comments Cancer Brother 1 Prostate Cancer Father Thyroid Cancer Sister 1 Relation Name Status Comments Brother 1 Alive Brother 2 Alive Brother 3 Brother 4 Father Mother Sister 1 Alive Sister 2 Social History Tobacco Use Types Packs/Day Years Used Date Smoking Tobacco: Never Smokeless Tobacco: Never Alcohol Use Standard Drinks/Week Comments Never 0 (1 standard drink = 0.6 oz pur e alcohol) Comments Unknown Sex and Gender Information Value Date Recorded Sex Assigned at Not on file Legal Sex Female 2:41 PM CDT Gender Identity Not on file Sexual Orientation Not on file Last Filed Vital Signs Vital Sign Reading Time Taken Comments Blood Pressure 142/67 02/11/2024 11:45 AM CDT Pulse 65 02/11/2024 11:44 AM CDT Temperature 36.2 ??C (97.1 ??F) 02/11/2024 11:44 AM C DT Respiratory Rate 14 02/11/2024 11:44 AM CDT Oxygen Saturation 97% 02/11/2024 11:44 AM CDT Inhaled Oxygen Concentration - - Weight 68.9 kg (152 lb) 02/11/2024 11:44 AM CDT Height 149.9 cm (4' 11 ) 04/13/2022 10:57 AM CDT Body Mass Index 30.7 04/13/2022 10:57 AM CDT Plan of Treatment Health Maintenance Due Date Last Done Comments DIABETES ANNUAL FOOT EXAM 12/18/1963 DIABETES ANNUAL RETINAL EXAM 12/18/1965 DIABETES MICROALBUMIN ANNUAL SCREEN 12/18/1965 LDL CHOLESTEROL ANNUAL 12/18/1965 DTAP/TDAP/TD VACCINES (1 - Tdap) 12/18/1966 PNEUMOCOCCAL VACCINE 65+ YEA RS (1 of 2 - PCV) 12/18/1966 ZOSTER VACCINE (1 of 2) 12/18/1997 OSTEOPOROSIS SCREENING 12/18/2012 RSV VACCINE (60+ or ) (1 - 1-dose 75+ series) 12/18/2022 DIABETES HBA1C Q 6 MONTHS 11/04/20232022, 04/25/2023, 11/25/2021 INFLUENZA VACCINE (#1) 2024 Procedures Procedure Name Priority Date/Time Associated Diagnosis Comments HOMOCYSTEINE Routine 08/14/2024 10:41 AM ESTIMATOR PAPERBOARD BOXES CBC WITH DIFFERENTIAL Routine 08/12/2024 10:46 AM ESTIMATOR PAP[employer]BOARD BOXES from Last 3 Months Results * HOMOCYSTEINE (08/14/2024 10:41 AM ESTIMATOR PAP[employer]BOARD BOXES) Blood Srinivas Horn MD CHEMISTRY ORDERABLES Final Resu lt * CBC WITH DIFFERENTIAL (08/12/2024 10:46 AM ESTIMATOR PAP[employer]BO[employer] BOX[employer]) Blood Srinivas Horn MD HEMATOLOGY ORDERABLES Final Res ult from Last 3 Months Insurance [facility] [employer] HMO [place] [id number] Care Teams Binder Folder Operator Relationship Specialty Start Date End Date Neftali Torres MD [address] [place] [address] PCP - General Internal Medicine 02/23/22
--- OUTSIDE RECORDS SUMMARY | 2024-10-30 15:17 | XMS_ITS | Referral Summary ---
Author Organization [facility] s Address [address] [place] [address] Care Team Providers Care Parachute Harness Rigger Name Role Phone Neftali Torres MD Primary Care Provider [phone] Brian Carson Nae DO Unavailable [phone] Allergies Active Allergy Reactions Criticality Noted Date Comments Codeine Hallucinations Medium Tramadol Hives,Itching Medium Medications aspirin 325 mg tablet Take 81 mg by mouth daily Active metoprolol XL (TOPROL-XL) 50 mg 24 hr tablet TAKE ONE TABLET BY MOUTH ONCE DAILY 90 tablet 3 8 Active Additional Information Patient taking differently: 50 mg oral Daily, Informant: Self, Reported on 04/25/2023 furosemide (LASIX) 40 mg tablet TAKE ONE TABLET BY MOUTH ONCE DAILY 90 tablet 3 8 Active Additional Information Patient taking differently: 40 mg oral Daily, Informant: Self, Reported on 04/25/2023 lisinopriL (PRINIVIL,ZESTR IL) 10 mg tablet Take 1 tablet by mouth once daily 90 tablet 3 0 Active Farxiga 10 mg tablet Take 1 tablet (10 mg total) by mouth daily for 90 days 3 Active glimepiride (AMARYL) 2 mg tablet Take 1 tablet (2 mg total) by mouth 2 (two) times a day 6 Active TRESIBA 100 unit/mL (3 mL) pen for injection nightly If its over 150-18 units If its under 150-16 units 16-18 units 3 Active SITagliptin phosphate (Januvia) 25 mg tablet Take 1 tablet (25 mg total) by mouth daily [address] (CYMBALTA) 30 mg capsule Take 20 mg by mouth daily Active cyanocobalamin (Vitamin B-12) 1,000 mcg sublingual tablet Take 1 tablet (1,000 mcg total) by mouth every other day Active cholecalciferol (VITAMIN D-3) 1,000 unit capsule Take 1 capsule (1,000 Units total) by mouth daily Active folic acid (FOLVITE) 800 mcg tablet Take 0.5 tablets (400 mcg total) by mouth daily Active CALCIUM CITRATE ORAL Take 600 mg by mouth daily Active omega 6-alt-opr-fish oil 1,200 (144-216) mg capsule Take 1 tablet/capsule by mouth daily Active FreeStyle Anne-Marie 2 Sensor kit CHANGE SENSOR EVERY 14 DAYS 3 Active ALPRAZolam (XANAX) 0.25 mg tablet Take 1 tablet (0.25 mg total) by mouth nightly as needed for anxiety Active azithromycin (ZITHROMAX) 500 mg tablet Take 1 tablet (500 mg total) by mouth daily 3 tablet 3 Active atorvastatin (LIPITOR) 80 mg tablet Take 1 tablet (80 mg total) by mouth nightly at bedtime. 30 tablet 11 3 Active clopidogreL (PLAVIX) 75 mg tablet Take 1 tablet (75 mg total) by mouth daily 3 Active Active Problems Problem Noted Date Diagnosed Date Carotid stenosis, asymptomatic, left 04/30/2023 Assessment & Plan (05/17/2023 9:40 AM CDT): Status post left CEA. Continue risk factor modification with ASA, Plavix statin therapy. Follow-up in 6 months with repeat duplex. Stenosis of left carotid artery 04/23/2023 Mixed hyperlipidemia 04/04/2023 Assessment & Plan (06/10/2024 9:49 AM CDT): Stable continue Lipitor Assessment & Plan (04/04/2023 9:24 AM CDT): Stable continue Lipitor 80 mg. Abnormal kidney function 03/20/2023 Bilateral carotid artery stenosis 02/21/2023 Assessment & Plan (06/10/2024 9:49 AM CDT): Asymptomatic moderate right ICA stenosis. Left ICA status post carotid endarterectomy. Overall doing well. Continue risk factor modification with ASA Plavix statin therapy good blood pressure control. Follow up in 6 months repeat carotid duplex. Assessment & Plan (11/27/2023 9:44 AM MOPHEAD TRIMMER AND WRAPPER): Left carotid continues to be patent with moderate stenosis noted to the right ICA per current duplex. She continues to be asymptomatic. Plan: Follow-up in 6 months for routine surveillance with a carotid duplex. Continue aspirin Plavix and statin therapy. Assessment & Plan (04/04/2023 9:23 AM CDT): Severe greater than 80% stenosis of the left internal carotid artery. Based on her anatomy I think a carotid endarterectomy would be favored over a TCAR. Risks benefits alternatives discussed, risks including bleeding, infection, nerve injury, stroke, need further surgery. She wished to proceed. Continue ASA statin therapy in good blood pressure control. We will get cardiac risk assessment prior to surgery. Assessment & Plan (03/14/2023 9:03 AM CDT): Right ICA with moderate 50-69% stenosis. Left ICA with severe greater than 80% stenosis. Discussed findings with the patient with recommendation for intervention. Continue risk factor modification with ASA and statin therapy. CTA head and neck ordered for further evaluation, pending this she is going to need a TCAR versus CEA. Assessment & Plan (02/21/2023 7:43 AM CDT): Previously being evaluated by Dr. Rothman, patient reports known high-grade stenosis. Carotid duplex ordered for further evaluation. Continue risk factor modification with ASA statin therapy in good blood pressure control. Will follow-up in the next 2- 3 weeks after her carotid duplex. PVD (peripheral vascular disease) with claudicat ion 02/21/2023 Assessment & Plan (02/21/2023 7:44 AM CDT): Bilateral lower extremity claudication. Risk factor modification as above ASA statin therapy. Bilateral lower extremity arterial Dopplers ordered Fatigue, unspecified type 12/04/2021 MDD (major depressive disorder) 11/29/2021 Overview (11/29/2021): Previously trialed on mirtazapine with GI side effects. Assessment & Plan (11/29/2021 10:53 AM MOPHEAD TRIMMER AND WRAPPER): - Bupriopion daily - Plan to titrate with PCP Hematoma 11/26/2021 Assessment & Plan (11/27/2021 12:46 PM MOPHEAD TRIMMER AND WRAPPER): Hematoma of R buttock extending into inner thigh. Bruise appears to be a few days old and is changing color. Etiology: spontaneous due to supratherapeutic INR and coagulapathy (given lovenox at OSH), possible trauma (although pt says she slipped but didn't fall) - It does not appear to be increasing in size/ swelling. Pain is improving as well. Hb stable. - pain control: tylenol, oxycodone PRN - continue to monitor with daily exam and trend Hgb. If concern for expansion of hematoma OR compartment syndrome, needs surgical/ortho consult Supratherapeutic INR 11/25/2021 Assessment & Plan (11/28/2021 11:24 AM MOPHEAD TRIMMER AND WRAPPER): At OSH INR was 24.1 on 11/24/21 -> s/p FFP, vit K Of note, pt visited OSH ER on 11/23/21 for leg pain and was given a dose of lovenox 73 mg and Rx for Ultrasound outpatient, however coags were not checked. (US was not done as scheduled as patient was back in ER the next day) - INR here was 1.5 > 1.3 - holding AC due to anemia/ Hb drop HFrEF (heart failure with re duced ejection fraction) ([facility]) 11/24/2021 Assessment & Plan (03/14/2023 9:03 AM CDT): Stable continue Lasix 40 mg. Assessment & Plan (11/27/2021 3:22 PM MOPHEAD TRIMMER AND WRAPPER): Reportedly LVEF 40% (last echo on file is in 2015). On home metop 50 daily, spironolactone 12.5 (?) daily, furosemide 40mg daily. -Received records from her cloth washer: Last echo Sep- EF 55-60%, mild LVH, grade 1 diastolic dysfunction, mild-mod MR. - Hold all in setting of bleeding, SKYE, hyper-K - appeared euvolemic to hypovolemic - s/p gentle IVF on 11/25, stopped - held lasix, but Today patient reports B/L leg swelling. On exam, non pitting edema noted. Will restart lasix 20 mg daily and monitor Cr closely -patient does not have an updated list of meds- she last saw her cloth washer 1.5 yrs ago and she has ED visits since then; might need to get records from PCP - BMP daily T2DM (type 2 diabetes mellitus) 11/24/2021 Assessment & Plan (11/26/2021 1:25 PM MOPHEAD TRIMMER AND WRAPPER): Reportedly on long-acting insulin and glimepride 2mg BID, although not sure of dose. Was hyperglycemic to 355 at OSH. - glargine 8U QHS - SSI - sugars in good control Hypertension 11/24/2021 Assessment & Plan (06/10/2024 9:49 AM CDT): Stable continue lisinopril Assessment & Plan (04/04/2023 9:23 AM CDT): Stable continue lisinopril 10 mg. Assessment & Plan (03/14/2023 9:03 AM CDT): Stable continue lisinopril 10 mg. Assessment & Plan (02/21/2023 7:43 AM CDT): Stable continue metoprolol 50 mg. Assessment & Plan (11/27/2021 12:42 PM MOPHEAD TRIMMER AND WRAPPER): Home meds amlodipine 5, others per HFrEF. - Held all antihypertensives until active bleeding ruled out - Normotensive, holding meds EXCEPT lasix which we will restart today at a low dose. SKYE (acute kidney injury) 11/24/2021 Assessment & Plan (11/27/2021 3:22 PM MOPHEAD TRIMMER AND WRAPPER): OSH Cr 1.99 from reported b/l 1.5. Unclear if this is SKYE, or SKYE on CKD. - Unknown baseline Creat -Records from Global Safety Officer do not have baseline creat but do have dx of Stage 3 CKD - Cr 1.6 here -> then downtrended to 1.4 after gentle IVF on 11/25 - Leg swelling, restart lasix at low dose of 20 mg daily - CTM, avoid nephrotoxins Acute blood loss anemia 11/24/2021 Assessment & Plan (11/29/2021 10:49 AM MOPHEAD TRIMMER AND WRAPPER): B/l Hgb reportedly ~11, at OSH was reportedly as low as 6.8, s/p 1U PRBCs. Most likely etiology is supratherapeutic AC with initial INR 24.1 and no recent INR checks. S/p FFP and vitamin K at OSH. Unclear source of bleeding but most likely GI bleed (has hx of diverticulosis) vs RP or other hematoma(s) given no overt bleeding. Patient has multiple bruises (appear few days old), biggest on lower back/ R buttock and R inner thigh. Was symptomatic with lightheadedness which improved. - check stool guaic - has still not had a BM - PPI BID in case of GI source -> Will DC if stool guaic negative - Recheck INR daily ->> 1.4 - HOLD anticoagulation with plans to restart otpt - Hb stable mid to high 7s - CBC Q12H, transfuse if <7 History of pulmonary embolus (PE) 11/24/2021 Overview (11/29/2021): Previously on warfarin then switched to xarelto because of poor compliance with monitoring. Patient then could not afford xarelto and began taking old warfarin Rx without monitoring and presenting to hospital. AC held on discharge, plan to restart with PCP. Assessment & Plan (11/29/2021 10:50 AM MOPHEAD TRIMMER AND WRAPPER): H/o prior PE on chronic anticoagulation with warfarin. Previously could not afford Xarelto. - Supratherapeutic INR due to taking old rx of warfarin without checking INR; also pt was given lovenox at OSH ER 2 days ago due to c/f blood clot in the leg - once Hb is stable and no active bleeding signs, she will likely need to get back on AC with close monitoring of Hb - Spoke to her outpatient Global Safety Officer Dr. Brian Carson ([facility]) to find out the indication for AC- he says he last saw her 1.5 yr ago, indication is 'PE', but Xarelto was started a few months ago at an ER visit or by PCP. - PCP confirmed history of PE in September of 2019 Vascular calcification 03/13/2016 Carotid bruit 03/13/2016 Chronic coronary artery disease 03/13/2016 Assessment & Plan (11/24/2021 11:10 PM MOPHEAD TRIMMER AND WRAPPER): S/p DICK 2013. On atorva 80, per patient has been off ASA. - Continue atorva 80 Ischemic cardiomyopathy 03/13/2016 Chronic systolic heart failure (CMS/HCC) 016 Resolved Problems Problem Noted Date Diagnosed Date Resolved Date Hyperkalemia 11/24/2021 11/26/2021 Assessment & Plan (11/27/2021 12:43 PM MOPHEAD TRIMMER AND WRAPPER): Reportedly 5.8 at OSH, s/p temporization. - K has not been elevated here. K is 4.3 today. Social History Tobacco Use Types Packs/Day Years Used Date Smoking Tobacco: Never Smokeless Tobacco: Never Social Connection and Isolation Panel [NHANES] A nswer Date Recorded In a typical week, how many times do you talk on the phone with family, friends, or neighbors? Three times a week 05/02/2023 How often do you get togethe r with friends or relatives? Three times a week 05/02/2023 How often do you attend chur ch or oriental orthodox services? Never 05/02/2023 Do you belong to any clubs o r organizations such as adventist groups, unions, fraternal or athletic groups, or school groups? No 05/02/2023 How often do you attend meet ings of the clubs or organizations you belong to? Never 05/02/2023 Are you , , di vorced, , never , or living with a partner? 05/02/2023 AUDIT-C Answer Date Recorded Q1: How often do you have a drink containing alcohol? Never 04/30/2023 Q2: How many drinks containi ng alcohol do you have on a typical day when you are drinking? Patient does not drink Q3: How often do you have si x or more drinks on one occasion? Never 04/30/2023 Overall Financial Resource Strain (CARDIA) Answe r Date Recorded How hard is it for you to pa y for the very basics like food, housing, medical care, and heating? Not hard at all 05/02/2023 Hunger Vital Sign Answer Date Recorded Within the past 12 months, y ou worried that your food would run out before you got the money to buy more. Never true 05/02/20 23 Within the past 12 months, t he food you bought just didn't last and you didn't have money to get more. Never true 05/02/2023 PRAPARE - Transportation Answer Date Re corded In the past 12 months, has l ack of transportation kept you from medical appointments or from getting medications? No 11/2022 In the past 12 months, has l ack of transportation kept you from meetings, work, or from getting things needed for daily living? No 05/02/2023 Housing Stability Vital Sign Answer Sawyer e Recorded In the last 12 months, was t here a time when you were not able to pay the mortgage or rent on time? No 05/02/2023 In the last 12 months, how many places have you lived? 1 05/02/2023 In the last 12 months, was t here a time when you did not have a steady place to sleep or slept in a halfway (including now)? No 05/02/2023 Housing Stability Vital Sign Answer Sawyer e Recorded In the last 12 months, was t here a time when you were not able to pay the mortgage or rent on time? No 05/02/2023 Number of Times Moved in the Last Year Not on fi le 05/02/2023 Homeless in the Last Year Not on file 2022 Personal Safety Answer Date Recorded Have you ever been in or are you currently in a harmful physical or emotional relationship or is someone making you feel afraid or unsafe? Denies 04/30/2023 Comments Unknown Sex and Gender Information Value Date Recorded Sex Assigned at Not on file Legal Sex Female 8:29 AM MOPHEAD TRIMMER AND WRAPPER Gender Identity Not on file Sexual Orientation Not on file Last Filed Vital Signs Vital Sign Reading Time Taken Comments Blood Pressure 142/81 06/10/2024 9:32 AM CDT Pulse 70 06/10/2024 9:32 AM CDT Temperature 37 ??C (98.6 ??F) 05/02/2023 12:19 PM CDT Respiratory Rate 16 05/02/2023 12:19 PM CDT Oxygen Saturation 97% 06/10/2024 9:32 AM CDT Inhaled Oxygen Concentration - - Weight 69.4 kg (153 lb) 05/15/2023 1:15 PM CDT Height 152.4 cm (5') 05/15/2023 1:15 PM CDT Body Mass Index 29.88 05/15/2023 1:15 PM CDT Plan of Treatment Not on file Medical Devices Implanted Type Area Biodiesel Engine Specialist Device Identifier Shelf Expiration Date Model / Serial / Lot Stent [employer] Patch Vascuguard 0.88cm [id number] - [id number] Implanted:Qty: 1 on 04/30/2023 by Ebenezer Pop MD at [facility] Left: Neck [facility] [id number] 12/05/2023 [id number] / / [id number] Procedures Procedure Name Priority Date/Time Associated Diagnosis Comments EGFR Routine 05/02/2023 7:06 AM CDT HEMOGLOBIN A1C Routine 04/25/2023 11:47 AM CDT Type 2 diabetes mellitus without complication, with long-term current use of insulin (CMS/HCC) (HCC) LIPID PANEL Routine 11/24/2021 9:43 PM MOPHEAD TRIMMER AND WRAPPER COLONOSCOPY REPORT 10/25/2016 from Last 3 Months or Most Recently Relevant to Health Maintenance Results * eGFR (05/02/2023 7:06 AM CDT) eGFR 47 mL/min/1. 73 m2 [facility] Comment: Interpretive Data Reference Interval Normal ?>/= 90 mL/min/1.73m2 Mildly decreased* ? 60 - 89 mL/min/1.73m2 Mildly to moderately decreased ?45 - 59 mL/min/1.73m2 Moderately to severely decreased ??30 - 44 mL/min/1.73m2 Severely decreased ?15 - 29 mL/min/1.73m2 Kidney Failure ?< 15 ??mL/min/1.73m2 *Relative to young adult level Estimated glomerular filtration rate is determined by the 2020 CKD-EPI equation recommended by the National Kidney Foundation (A Unifying Approach to GFR Estimation: Recommendations of the NKF-ASK Task Force on Reassessing the Inclusion of Race in Diagnosing Kidney Disease, JASN 2020). The CKD-EPI equation should not be used for patients with unstable renal function and has not been validated in children and those over 70. Current interpretive data was last reviewed 2021. Blood 05/02/2023 7:06 AM CDT 05/02/2023 7:13 AM CDT us Celina Vogt DO LAB BLOOD ORDERABLES Final Re sult [facility] [address] [facility] Department [place] [address] * (ABNORMAL) Hemoglobin A1c (04/25/2023 11:47 AM CDT) Pathologist [facility] Hgb A1C 7.5(H) 4.0 - 5.6 % [facility] Estimated Average Glucose 169 mg/dL [facility] Comment: The ADA recommends reporting an estimated Average Glucose (eAG) with all Hemoglobin A1c results using the equation derived from a study of 507 normal and diabetic adults. ??Minority populations were underrepresented and children were not included. ?? (Diabetes Care 31:6722-8724, 2008). ??The eAG is not equivalent to a fasting glucose. Blood 04/25/2023 11:4 7 AM CDT 04/25/2023 12:48 PM CDT us Ebenezer Pop MD LAB BLOOD ORDERABLES Final Resul t [facility] [address] [facility] Department [place] [address] * (ABNORMAL) Lipid panel (11/24/2021 9:43 PM MOPHEAD TRIMMER AND WRAPPER) Pathologist [facility] Cholesterol 126 30 - 199 mg/dL [facility] Comment: Interpretive Data Ages < or = 19 years ??Acceptable: ? <170 mg/dL ??Borderline high: ??170-199 mg/dL ??High: ? >or= 200 mg/dL Ages > or = 20 years ??Desirable: ?<200 mg/dL ??Borderline high: ??200-239 mg/dL ??High: ? >or= 240 mg/dL Literature References: 1. Expert Panel on Integrated Guidelines for Cardiovascular Health and Risk Reduction in Children and Adolescents. Pediatrics 2011;128:S213 2. NCEP Expert Panel. Circulation 2004;110:227 Current Interpretive Data was last revised on 2018. Triglycerides 243(H) <=149 mg/dL [facility] Comment: Interpretive Data Ages < or = 9 years ??Acceptable: ? <75 mg/dL ??Borderline high: ??75-99 mg/dL ??High: ? >or= 100 mg/dL Ages 10 to 20 years ??Acceptable: ? <90 mg/dL ??Borderline high: ??90-129 mg/dL ??High: ? >or= 130 mg/dL Ages > or = 20 years ??Desirable: ?<150 mg/dL ??Borderline high: ??150-199 mg/dL ??High: ? 200-499 mg/dL ?Very high: ?? >or= 499 mg/dL Literature References: 1. Expert Panel on Integrated Guidelines for Cardiovascular Health and Risk Reduction in Children and Adolescents. Pediatrics 2011;128:S213 2. NCEP Expert Panel. Circulation 2004;110:227 Current Interpretive Data was last revised on 2018. HDL 26(L) >=40 mg/dL [facility] Comment: Interpretive Data Ages < or = 19 years ??Acceptable: ? >45 mg/dL ??Borderline low: ?? 40-45 mg/dL ??Low: ? <40 mg/dL Ages > or = 20 years ??Desirable: ?>or= 60 mg/dL ??Low: ? <40 mg/dL Literature References: 1. Expert Panel on Integrated Guidelines for Cardiovascular Health and Risk Reduction in Children and Adolescents. Pediatrics 2011;128:S213 2. NCEP Expert Panel. Circulation 2004;110:227 Current Interpretive Data was last revised on 2018. LDL, calculated 51 <=129 mg/dL [facility] Comment: Interpretive Data Ages < or = 19 years ??Acceptable: ? <110 mg/dL ??Borderline high: ??110-129 mg/dL ??High: ?>or= 130 mg/dL Ages > or = 20 years ??Optimal: ? <100 mg/dL ??Near optimal: ?100-129 mg/dL ??Borderline high: ?? 130-159 mg/dL ??High: ?>160 mg/dL Literature References: 1. Expert Panel on Integrated Guidelines for Cardiovascular Health and Risk Reduction in Children and Adolescents. Pediatrics 2011;128:S213 2. NCEP Expert Panel. Circulation 2004;110:227 Current Interpretive Data was last revised on 2018. Non-HDL Cholesterol 100 mg/dL [facility] Comment: Interpretive Data Ages < or = 19 years ??Acceptable: ?<120 mg/dL ??Borderline high: ??120-144 mg/dL ??High: ?>145 mg/dL Ages > or = 20 years ??When triglycerides are >200 mg/dL, Non-HDL cholesterol is a secondary target of ? therapy with treatment goals that are 30 mg/dL greater than the LDL cholesterol target. ? Literature References: 1. Expert Panel on Integrated Guidelines for Cardiovascular Health and Risk Reduction in Children and Adolescents. Pediatrics 2011;128:S213 2. NCEP Expert Panel. Circulation 2004;110:227 Current Interpretive Data was last revised on 2018. Chol/HDL ratio 5 [facility] Blood 11/24/2021 9:43 PM MOPHEAD TRIMMER AND WRAPPER 11/24/2021 10:53 PM MOPHEAD TRIMMER AND WRAPPER Dahlia Moseley MD LAB BLOOD ORDERABLES Final Result Performing Organization Address City/State/[facility] Co de Phone Number [facility] [address] [facility] Department [place] [address] * COLONOSCOPY REPORT (10/25/2016) Anatomical Region Laterality Modality Other Narrative 10/25/2016 Ordered by an unspecified provider. Historical Provider GI PROCEDURE ORDERABLES F inal Result from Last 3 Months or Most Recently Relevant to Health Maintenance Insurance [facility] MDCR HMO REF MEDICARE SOLUTIONS MEDICARE SOLUTIONS Advance Directives For more information, please contact: [phone] Documents on File Type Date Recorded Patient Film Or Tape Librarian Expl anation Power of Lotus Notes Administrator 04/30/2023 7:55 AM * Full Code (Latest Code Status on File) Date Activated Date Inactivated Comments 04/30/2023 5:05 PM 05/02/2023 8:36 PM * Full Code Date Activated Date Inactivated Comments 11/24/2021 9:19 PM 11/29/2021 8:19 PM Care Teams Parachute Harness Rigger Relationship Specialty Start Date End Date Neftali Torres MD PCP - General 01/18/17 Brian Carson DO [address] [facility] [address] [place] [address] Referring Physician Cardiology 04/25/23
--- OUTSIDE RECORDS SUMMARY | 2024-10-30 15:17 | XMS_ITS | Clinical Summary ---
Author Organization [facility] s Address [address] [place] [address] Care Team Providers Care Geological Aide Name Role Phone Neftali Torres MD Primary Care Provider [phone] Brian Carson Nae DO Unavailable [phone] Allergies Active Allergy Reactions Criticality Noted Date [...] 600 mg by mouth daily Active omega 3-rcm-bmk-fish oil 1,200 (144-216) mg capsule Take 1 [...] duplex. Assessment & Plan (11/27/2023 9:44 AM NECKTIES PAINTER): Left carotid continues to be patent with [...] effects. Assessment & Plan (11/29/2021 10:53 AM NECKTIES PAINTER): - Bupriopion daily - Plan to titrate with PCP Hematoma 11/26/2021 Assessment & Plan (11/27/2021 12:46 PM NECKTIES PAINTER): Hematoma of R buttock extending into inner [...] 11/25/2021 Assessment & Plan (11/28/2021 11:24 AM NECKTIES PAINTER): At OSH INR was 24.1 on 11/24/21 [...] (heart failure with re duced ejection fraction) ([facility]) 11/24/2021 Assessment & Plan (03/14/2023 9:03 AM CDT): Stable continue Lasix 40 mg. Assessment & Plan (11/27/2021 3:22 PM NECKTIES PAINTER): Reportedly LVEF 40% (last echo on file is in 2015). On home metop 50 daily, spironolactone 12.5 (?) daily, furosemide 40mg daily. -Received records from her bookseamer blindstitch: Last echo Sep- EF 55-60%, mild LVH, [...] list of meds- she last saw her [facility]seamer [facility]ch 1.5 yrs ago and she has ED visits since then; might need to get records from PCP - BMP daily T2DM (type 2 diabetes mellitus) 11/24/2021 Assessment & Plan (11/26/2021 1:25 PM NECKTIES PAINTER): Reportedly on long-acting insulin and glimepride 2mg [...] mg. Assessment & Plan (11/27/2021 12:42 PM NECKTIES PAINTER): Home meds amlodipine 5, others per HFrEF. - Held all antihypertensives until active bleeding ruled out - Normotensive, holding meds EXCEPT lasix which we will restart today at a low dose. SKYE (acute kidney injury) 11/24/2021 Assessment & Plan (11/27/2021 3:22 PM NECKTIES PAINTER): OSH Cr 1.99 from reported b/l 1.5. Unclear if this is SKYE, or SKYE on CKD. - Unknown baseline Creat -Records from [facility] do not have baseline creat but do have dx of Stage 3 CKD - Cr 1.6 here -> then downtrended to 1.4 after gentle IVF on 11/25 - Leg swelling, restart lasix at low dose of 20 mg daily - CTM, avoid nephrotoxins Acute blood loss anemia 11/24/2021 Assessment & Plan (11/29/2021 10:49 AM NECKTIES PAINTER): B/l Hgb reportedly ~11, at OSH was [...] PCP. 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 Brian Carson ([facility]) to find out the indication for AC- he says he last saw her 1.5 yr ago, indication is 'PE', but Xarelto was started a few months ago at an ER visit or by PCP. - PCP confirmed history of PE in September of 2019 Vascular calcification 03/13/2016 Carotid bruit 03/13/2016 Chronic coronary artery disease 03/13/2016 Assessment & Plan (11/24/2021 11:10 PM NECKTIES PAINTER): S/p DICK 2013. On atorva 80, per patient has been off ASA. - Continue atorva 80 Ischemic cardiomyopathy 03/13/2016 Chronic systolic heart failure ([facility]) 016 Resolved Problems Problem Noted Date Diagnosed Date Resolved Date Hyperkalemia 11/24/2021 11/26/2021 Assessment & Plan (11/27/2021 12:43 PM NECKTIES PAINTER): Reportedly 5.8 at OSH, s/p temporization. - K has not been elevated here. K is 4.3 today. Surgical History Surgery Date Site/Laterality Comments CHOLECYSTECTOMY 09/30/1971 - 09/29/1972 APPENDECTOMY HYSTERECTOMY CATARACT EXTRACTION, BILATERAL CARDIAC CATHETERIZATION 2013, 04/18/2023, 1 stent COLONOSCOPY HM MAMMOGRAPHY HM DEXA SCAN Medical History Medical History Date Comments CAD (coronary artery disease) HFrEF (heart failure with re duced ejection fraction) ([facility]) ([facility]) Type 2 diabetes mellitus ([facility]) Hypertension History of pulmonary embolus (PE) 11/24/2021 right side if lung CHF (congestive heart failure) ([facility]) ([facility]) History of HI (myocardial infarction) 2013 History of bronchitis History of blood transfusion 2021 Blood in stool resolved Depression Anxiety Wears glasses Wears hearing aid bl Full dentures Obesity Family History Medical History Relation Name Comments Heart failure Father Family history of congestive heart failure - (Added by TW Conv) Relation Name Status Comments Father Social History Tobacco Use Types Packs/Day Years [...] often do you attend chur ch or judaism services? Never 05/02/2023 Do you belong to any clubs o r organizations such as presybeterian groups, unions, fraternal or athletic groups, or [...] place to sleep or slept in a fdc (including now)? No 05/02/2023 Housing Stability Vital [...] on file Legal Sex Female 8:29 AM NECKTIES PAINTER Gender Identity Not on file Sexual Orientation Not on file Obstetrics History Last Filed Vital Signs Vital Sign Reading [...] 05/15/2023 1:15 PM CDT Plan of Treatment Health Maintenance Due Date Last Done Comments Albumin Creatinine Ratio, Urine 1945 Depression Screening 1945 Hepatitis C Screening 1945 Osteoporosis Screening-Bone Density Scan 1945 Dilated Eye Exam 1945 Foot Exam 1945 DTaP/Tdap/Td Vaccine (1 - Tdap) 12/18/1958 Hepatitis B Screening 12/18/1965 Zoster Vaccine (1 of 2) 12/18/1997 Well Visit 65+ 12/18/2012 Lipid Panel 11/24/2022 11/24/2021 Hemoglobin A1C 10/26/2023 04/25/2023, 11/25/2021 Fall Risk Assessment 05/02/2024 05/02/2023 eGFR 05/02/2024 05/02/2023, 08/10/2022, 04/25/2023, Additional history exists Covid-19 Vaccine (2023-2 5 season) 2024 09/21/2021, 01/20/2021, 12/23/2020 Influenza Vaccine (#1) 2024 , 07/17/2019, 07/17/2017, Additional history exists Colon Cancer Screening-CT Colonography Discontinued 10/25/2016 Colon Cancer Screening-Colonoscopy Discontinued 10/25/2016 Colon Cancer Screening-DNA Stool Discontinued 10/25/19 17 Colon Cancer Screening-FIT Discontinued 10/25/2016 Colon Cancer Screening-FOBT Discontinued 10/25/2016 Colon Cancer Screening-Sigmoidoscopy Discontinued 10/25/2016 Colorectal Cancer Screening Discontinued Pneumococcal vaccine 65+ Completed 017, 07/13/2017, 06/24/2014, Additional history exists Medical Devices Implanted Type Area Stockroom Worker Device Identifier Shelf Expiration Date Model / Serial / Lot Stent Heart [employer] Patch Vascuguard 0.88cm [id number] - [id number] Implanted:Qty: 1 on 04/30/2023 by Ebenezer Pop MD at [facility] Left: Neck [facility] [employer] [id number] 12/05/2023 [id number] / / [id number] Procedures Procedure Name Priority Date/Time Associated Diagnosis Comments EGFR Routine 05/02/2023 7:06 AM CDT HEMOGLOBIN A1C Routine 04/25/2023 11:47 AM CDT Type 2 diabetes mellitus without complication, with long-term current use of insulin (CMS/HCC) (HCC) LIPID PANEL Routine 11/24/2021 9:43 PM NECKTIES PAINTER COLONOSCOPY REPORT 10/25/2016 from Last 3 Months [...] LAB BLOOD ORDERABLES Final Re sult [facility] [address] [facility] Department [place] [address] * (ABNORMAL) Hemoglobin A1c (04/25/2023 11:47 AM CDT) Hgb A1C 7.5(H) 4.0 - 5.6 % [facility] Estimated Average Glucose 169 mg/dL [facility] Comment: The ADA recommends reporting an estimated Average Glucose (eAG) with all Hemoglobin A1c results using the equation derived from a study of 507 normal and diabetic adults. ??Minority populations were underrepresented and children were not included. ?? (Diabetes Care 31:2979-8374, 2008). ??The eAG is not equivalent to a fasting glucose. Blood 04/25/2023 11:4 7 AM CDT 04/25/2023 12:48 PM CDT us Ebenezer Pop MD LAB BLOOD ORDERABLES Final Resul t [facility] [address] [facility] Department [place] [address] * (ABNORMAL) Lipid panel (11/24/2021 9:43 PM NECKTIES PAINTER) Pathologist [facility] Cholesterol 126 30 - 199 mg/dL [facility] [...] on 2018. Triglycerides 243(H) <=149 mg/dL [facility] Comment: Interpretive Data Ages < or = [...] on 2018. HDL 26(L) >=40 mg/dL [facility] Comment: Interpretive Data Ages [...] 2018. LDL, calculated 51 <=129 mg/dL [facility] Comment: Interpretive Data Ages [...] revised on 2018. Non-HDL Cholesterol 100 mg/dL [facility] Comment: Interpretive Data Ages [...] last revised on 2018. Chol/HDL ratio 5 [facility] Blood 11/24/2021 9:43 PM NECKTIES PAINTER 11/24/2021 10:53 PM NECKTIES PAINTER us Dahlia Moseley MD LAB BLOOD ORDERABLES Final Result [facility] [address] [facility] [place] [address] * COLONOSCOPY REPORT (10/25/2016) Anatomical Region Laterality Modality Other Narrative 10/25/2016 Ordered by an unspecified provider. us Historical Provider GI PROCEDURE ORDERABLES F inal Result from Last 3 Months or Most Recently Relevant to Health Maintenance Insurance [facility] MDCR HMO REF Member Subscriber Plan / Payer (Ef fective 2021-Present) Name:Tran Bryan Relation to Subscriber:Self Name:Tran Bryan Payer ID:[id number] (NAIC) Type:[facility] MEDICARE Address: [id number] [place] [id number] MEDICARE SOLUTIONS [place] [id number] MEDICARE SOLUTIONS Advance Directives For more information, please contact: [phone] Documents on File Type Date Recorded Patient Beauty Sales Consultant Expl anation Power of Propulsion Engineer 04/30/2023 7:55 AM * Full Code (Latest Code Status on File) Date Activated Date Inactivated Comments 04/30/2023 5:05 PM 05/02/2023 8:36 PM * Full Code Date Activated Date Inactivated Comments 11/24/2021 9:19 PM 11/29/2021 8:19 PM Care Teams Geological Aide Relationship Specialty Start Date End Date Neftali Torres MD PCP - General 01/18/17 Brian Carson DO [address] [facility] [address] [place] [address] Referring Physician Cardiology 04/25/23
--- OUTSIDE RECORDS SUMMARY | 2024-10-30 15:17 | XMS_ITS | CONTINUITY OF CARE DOCUMENT ---
Author Name gideon meneses Address Unknown Organization [facility] Address [address] [place] [address] Phone [phone] Care Team Providers Care General Claims Agent Name Role Phone Tino Shay MD Unavailable GISELA HOLGUIN MD Unavailable GISELA HOLGUIN MD Unavailable [phone] INSURANCE PROVIDERS Payer name Policy type / Coverage type [place] red republican ID [place] MED[place] Medicare [id number]
--- OUTSIDE RECORDS SUMMARY | 2024-10-30 15:17 | XMS_ITS | Referral Summary ---
Author Organization [facility] Address [address] [place] [address] Care Team Providers Care Merchandise Director Name Role Phone Neftali Torres MD Primary Care Provider [phone] Source Comments [facility],non-[facility] and Associated Physician Practices is amultiple site organization consisting of ambulatory clinics and hospital sitesin [place], [place], [place] and [place]. This disclosure is being madepursuant to the Care Everywhere program and may not contain all information available regarding this patient. Last updated 18.[facility] Encounters Date Type Department Care Team Description 09/22/2024 Telephone Transitional Care at [address] [phone] Brooklyn Polk RN Transitional Care 09/21/2024 Telephone Transitional Care at [address] [phone] Alyssa Gill, program review director 09/13/2024 10:41 PM [employer] - 09/19/2024 1:48 PM [employer] Hospital Encounter [facility]ORT STAY UNIT [address] [place] [address] Lam David MD Bhalla, MD Shakeel Hardy Peter J III, MD Kent, Saida A, MD Emergency Medicine Discharge Disposition: Rehab:Inpatient 09/15/2024 Travel from Last 3 Months Allergies Active Allergy Reactions Criticality Noted Date Comments Codeine Other Low 06/05/2016 Hallucinates when taking the medication Tramadol Nausea and/or Vomiting Low 06/05/2016 Medications * Be aware that medications may not be up to date on this document. Alwaysverify current medications with the patient. Medication Sig Dispensed Refills Start Date End Date Status DULoxetine (Cymbalta) 30 MG capsule Take 1 (one) capsule by mouth once daily Active dapagliflozin propanediol (Farxiga) 10 MG tablet Take 1 (one) tablet by mouth every morning Active ALPRAZolam (Xanax) 0.25 MG tablet Take 1 (one) tablet by mouth at bedtime Active atorvastatin (Lipitor) 80 MG tablet Take 1 (one) tablet by mouth at bedtime 30 tablet 11 05/02/2023 Active insulin degludec (Tresiba FlexTouch) 100 UNIT/ML pen at bedtime 03/19/2022 Active furosemide (Lasix) 40 MG tablet Take 1 (one) tablet by mouth 2 times daily 60 tablet 05/05/2023 Active acetaminophen (Tylenol) 500 MG tablet Take 1 (one) tablet by mouth every 4 hours as needed Maximum allowable Acetaminophen amount = 4 Grams (4000 mg) / 24 hours. 09/19/2024 Active aspirin (Aspirin) 81 MG chew tablet Take 1 (one) tablet by mouth once daily 09/20/2024 Active ondansetron, disintegrating, (Zofran ODT) 4 MG tablet Take 1 (one) tablet by mouth every 6 hours as needed for Nausea/Vomiting Allow tablet to dissolve on the tongue 15 tablet 09/19/2024 Active metoprolol succinate XL 24hr (Toprol XL) 50 MG tablet Take 1 (one) tablet by mouth 2 times daily 60 tablet 09/19/2024 Active polyethylene glycol 3350 (Miralax) 17 g packet Take 17 (seventeen) g by mouth once daily 09/20/2024 Active simethicone (Mylicon) 80 MG chew tablet Take 1 (one) tablet by mouth 4 times daily as needed for Gas Pain 09/19/2024 Active cyclobenzaprine (Flexeril) 10 MG tablet Take 1 (one) tablet by mouth 3 times daily as needed for Muscle Spasms 15 tablet 09/19/2024 Active Active Problems Problem Noted Date Diagnosed Date History of open reduction an d internal fixation (ORIF) procedure 09/19/2024 T2DM (type 2 diabetes mellitus) 09/19/2024 HTN (hypertension) 09/19/2024 Major depressive disorder 09/19/2024 Anxiety 09/19/2024 Fall, initial encounter 09/14/2024 Acute pulmonary edema 05/03/2023 SOB (shortness of breath) 05/03/2023 Hypoxia 05/03/2023 Acute respiratory failure with hypoxia 3 Elevated troponin 05/03/2023 Social History Tobacco Use Types Packs/Day Years Used Date Smoking Tobacco: Former Tobacco Cessation:Counseling Given: Not Answered Alcohol Use Standard Drinks/Week Comments Never 0 (1 standard drink = 0.6 oz pur e alcohol) AUDIT-C Answer Date Recorded Q1: How often do you have a drink containing alcohol? Never 09/15/2024 Q2: How many drinks containi ng alcohol do you have on a typical day when you are drinking? Patient does not drink Q3: How often do you have si x or more drinks on one occasion? Never 09/15/2024 Overall Financial Resource Strain (CARDIA) Answe r Date Recorded How hard is it for you to pa y for the very basics like food, housing, medical care, and heating? Not hard at all 09/15/2024 [facility] - Occupational Stress Questionnaire Answer Date Recorded Do you feel stress - tense, restless, nervous, or anxious, or unable to sleep at night because your mind is troubled all the time - these days? Only a little 09/15/2024 Hunger Vital Sign Answer Date Recorded Within the past 12 months, y ou worried that your food would run out before you got the money to buy more. Never true 09/15/20 24 Within the past 12 months, t he food you bought just didn't last and you didn't have money to get more. Never true 09/15/2024 PRAPARE - Transportation Answer Date Re corded In the past 12 months, has l ack of transportation kept you from medical appointments or from getting medications? No 08/30 In the past 12 months, has l ack of transportation kept you from meetings, work, or from getting things needed for daily living? No 09/15/2024 Housing Stability Vital Sign Answer Sawyer e Recorded In the last 12 months, was t here a time when you were not able to pay the mortgage or rent on time? No 05/03/2023 In the last 12 months, how many places have you lived? 1 05/03/2023 In the last 12 months, was t here a time when you did not have a steady place to sleep or slept in a mcc (including now)? No 05/03/2023 Housing Stability Vital Sign Answer Sawyer e Recorded In the last 12 months, was t here a time when you were not able to pay the mortgage or rent on time? No 09/15/2024 In the past 12 months, how m any times have you moved where you were living? 0 09/15/2024 At any time in the past 12 m [facility], were you homeless or living in a mcc (including now)? No 09/15/2024 Sex and Gender Information Value Date Recorded Sex Assigned at Not on file Gender Identity Not on file Sexual Orientation Not on file Last Filed Vital Signs Vital Sign Reading Time Taken Comments Blood Pressure 154/83 09/19/2024 12:11 PM [employer] Pulse 86 09/19/2024 12:11 PM [employer] Temperature 37 ??C (98.6 ??F) 09/19/2024 12:11 PM [employer] Respiratory Rate 14 09/19/2024 8:30 AM [employer] Oxygen Saturation 94% 09/19/2024 12:11 PM [employer] Inhaled Oxygen Concentration - - Weight 61.7 kg (136 lb) 09/19/2024 4:00 AM [employer] Height 152.4 cm (5') 09/15/2024 1:00 AM [employer] Body Mass Index 26.56 09/15/2024 1:00 AM [employer] Functional Status Functional Status Response Date of Assess ment Is person deaf or have serious hearing difficult y? Yes 09/15/2024 Is person blind or have serious difficulty seein g? No 09/15/2024 Does person have serious dif ficulty walking/climbing stairs? Yes 09/15/2024 Does person have difficulty dressing/bathing? Ye s 09/15/2024 Does person have difficulty doing errands alone? Yes 09/15/2024 Cognitive Status Response Date of Assessm ent Does person have difficulty concentrating/remembering/making decisions? No 09/15/2024 Plan of Treatment Not on file Procedures Procedure Name Priority Date/Time Associated Diagnosis Comments GLUCOSE - POINT OF CARE Routine 09/19/2024 12:12 PM [employer] GLUCOSE - POINT OF CARE Routine 09/19/2024 8:37 AM [employer] BASIC METABOLIC PANEL (CALCIUM TOTAL) AM Draw 09/19/2024 12:36 AM [employer] MAGNESIUM BLOOD Routine 09/19/2024 12:36 AM [employer] PHOSPHORUS BLOOD Routine 09/19/2024 12:3 6 AM [employer] CBC W/O DIFFERENTIAL AM Draw 09/19/2024 12:36 AM [employer] GLUCOSE - POINT OF CARE Routine 09/18/2024 8:32 PM [employer] GLUCOSE - POINT OF CARE Routine 09/18/2024 5:44 PM [employer] GLUCOSE - POINT OF CARE Routine 09/18/2024 1:14 PM [employer] GLUCOSE - POINT OF CARE Routine 09/18/2024 9:08 AM [employer] BASIC METABOLIC PANEL (CALCIUM TOTAL) AM Draw 09/18/2024 1:04 AM [employer] MAGNESIUM BLOOD Routine 09/18/2024 1:04 AM [employer] PHOSPHORUS BLOOD Routine 09/18/2024 1:04 AM [employer] CBC W/O DIFFERENTIAL AM Draw 09/18/2024 1:04 AM [employer] GLUCOSE - POINT OF CARE Routine 09/17/2024 8:50 PM [employer] GLUCOSE - POINT OF CARE Routine 09/17/2024 8:18 PM [employer] GLUCOSE - POINT OF CARE Routine 09/17/2024 5:24 PM [employer] GLUCOSE - POINT OF CARE Routine 09/17/2024 12:19 PM [employer] GLUCOSE - POINT OF CARE Routine 09/17/2024 8:23 AM [employer] BASIC METABOLIC PANEL (CALCIUM TOTAL) AM Draw 09/17/2024 12:46 AM [employer] MAGNESIUM BLOOD Routine 09/17/2024 12:46 AM [employer] PHOSPHORUS BLOOD Routine 09/17/2024 12:4 6 AM [employer] CBC W/O DIFFERENTIAL AM Draw 09/17/2024 12:46 AM [employer] GLUCOSE - POINT OF CARE Routine 09/16/2024 8:28 PM [employer] GLUCOSE - POINT OF CARE Routine 09/16/2024 6:05 PM [employer] GLUCOSE - POINT OF CARE Routine 09/16/2024 12:13 PM [employer] GLUCOSE - POINT OF CARE Routine 09/16/2024 8:17 AM [employer] BASIC METABOLIC PANEL (CALCIUM TOTAL) AM Draw 09/16/2024 12:56 AM [employer] MAGNESIUM BLOOD Routine 09/16/2024 12:56 AM [employer] PHOSPHORUS BLOOD Routine 09/16/2024 12:5 6 AM [employer] CBC W/O DIFFERENTIAL AM Draw 09/16/2024 12:55 AM [employer] GLUCOSE - POINT OF CARE Routine 09/15/2024 8:01 PM [employer] GLUCOSE - POINT OF CARE Routine 09/15/2024 5:40 PM [employer] GLUCOSE - POINT OF CARE Routine 09/15/2024 12:03 PM [employer] GLUCOSE - POINT OF CARE Routine 09/15/2024 8:43 AM [employer] BASIC METABOLIC PANEL (CALCIUM TOTAL) AM Draw 09/15/2024 8:35 AM [employer] MAGNESIUM BLOOD Routine 09/15/2024 8:35 AM [employer] PHOSPHORUS BLOOD Routine 09/15/2024 8:35 AM [employer] CBC W/O DIFFERENTIAL AM Draw 09/15/2024 8:14 AM [employer] GLUCOSE - POINT OF CARE Routine 09/14/2024 11:02 PM [employer] GLUCOSE - POINT OF CARE Routine 09/14/2024 6:43 PM [employer] XR FEMUR LEFT 2VW Routine 09/14/2024 5:3 8 PM [employer] Fall, initial encounter GLUCOSE - POINT OF CARE Routine 09/14/2024 2:07 PM [employer] CARDIAC EKG ORDER 09/14/2024 1:1 3 PM [employer] CT HIP LEFT WO CONTRAST STAT 09/14/2024 8:46 AM [employer] Fall, initial encounter GLUCOSE - POINT OF CARE Routine 09/14/2024 8:21 AM [employer] GLUCOSE - POINT OF CARE Routine 09/14/2024 4:56 AM [employer] VITAMIN D 25-HYDROXY Routine 09/14/2024 2:15 AM [employer] TROPONIN-I HIGH SENSITIVE REFLEX 1HOUR Timed 09/14/2024 2:15 AM [employer] XR PELVIS W LEFT HIP 2VW STAT 09/14/2024 1:44 AM [employer] Fall, initial encounter GLUCOSE - POINT OF CARE Routine 09/14/2024 1:38 AM [employer] TROPONIN-I HIGH SENSITIVE BASELINE + 1HR STAT 09/14/2024 12:23 AM [employer] GLUCOSE - POINT OF CARE Routine 09/13/2024 9:24 PM [employer] CT FACIAL BONES WO CONTRAST STAT 09/13/2024 7:15 PM [employer] Fall, initial encounter Contusion of scalp, initial encounter CT CERVICAL SPINE WO CONTRAST STAT 09/13/2024 7:15 PM [employer] Fall, initial encounter Contusion of scalp, initial encounter CT HEAD WO CONTRAST STAT 09/13/2024 7 :15 PM [employer] Fall, initial encounter Contusion of scalp, initial encounter PT-INR [facility] STAT 09/13/2024 5:59 PM [employer] COMPREHENSIVE METABOLIC PANEL STAT 09/13/2024 5:59 PM [employer] CBC W AUTO DIFFERENTIAL STAT 09/13/2024 5:59 PM [employer] HEMOGLOBIN A1C Routine 05/04/2023 4:06 AM CDT from Last 3 Months or Most Recently Relevant to Health Maintenance Results * (ABNORMAL) GLUCOSE - POINT OF CARE (09/19/2024 12:12 PM [employer]) Only the most recent of26 resultswithin the time period is included. Glucose WB/POC 328(H) 70 - 99 mg/dL 09/19/2024 12:17 PM [employer] [facility] Specimen Type Cap Fingerstick 2023 12:17 PM [employer] [facility] Blood BLOOD SPECIMEN / Unknown 09/19/2024 12:12 PM [employer] 09/19/2024 12:17 PM [employer] Serena Marquez MD LAB - POINT OF CARE ORDERABLES [facility] [address] [place] [phone], [place] [phone] * (ABNORMAL) CBC W/O DIFFERENTIAL (09/19/2024 12:36 AM [employer]) Only the most recent of5 resultswithin the time period is included. WBC 7.0 4.0 - 10.7 x10E9/L 09/19/2024 1:05 AM [facility] RBC Count 3.75(L) 3.90 - 5.20 x10E12/L 09/19/2024 1:05 AM [facility] Hemoglobin 10.9(L) 11.9 - 15.8 g/dL 09/19/2024 1:05 AM [facility] Hematocrit 34.4(L) 34.8 - 46.1 % 09/19/2024 1:05 AM [facility] MCV 91.7 80.0 - 98.0 fL 09/19/2024 1:05 AM [facility] MCH 29.1 26.7 - 33.6 pg 09/19/2024 1:05 AM [facility] MCHC 31.7 31.7 - 36.3 g/dL 09/19/2024 1:05 AM [facility] RDW-CV 17.2(H) 11.3 - 14.8 % 09/19/2024 1:05 AM [facility] Platelet Count 387 150 - 420 x10E9/L 09/19/2024 1:05 AM [facility] MPV 10.5 7.8 - 11.4 fL 09/19/2024 1:05 AM [facility] Blood BLOOD SPECIMEN / Unknown Lab Venipuncture / Unknown 09/19/2024 12:36 AM [employer] 09/19/2024 12:53 AM [facility] Any Mccoy PA-C LAB - HEMATOLOG Y ORDERABLES [facility] [address] [place] [phone], [facility] [phone] * (ABNORMAL) BASIC METABOLIC PANEL (CALCIUM TOTAL) (09/19/2024 12:36 AM [employer]) Only the most recent of5 resultswithin the time period is included. BUN 61(H) 7 - 26 mg/dL 09/19/2024 1:18 AM [facility] Creatinine 1.31(H) 0.56 - 0.96 mg/dL 09/19/2024 1:18 AM [facility] Sodium 136 136 - 145 mmol/L 09/19/2024 1:18 AM [facility] Potassium 5.0(H) 3.5 - 4.5 mmol/L 09/19/2024 1:18 AM [facility] Chloride 100 98 - 107 mmol/L 09/19/2024 1:18 AM [facility] CO2 30(H) 22 - 29 mmol/L 09/19/2024 1:18 AM [facility] Glucose 268(H) 70 - 99 mg/dL 09/19/2024 1:18 AM [facility] Calcium 9.2 8.4 - 10.2 mg/dL 09/19/2024 1:18 AM [facility] Anion Gap 6 6 - 16 09/19/2024 1:18 AM [facility] BUN/Creatinine Ratio 47(H) 7 - 23 09/19/2024 1:18 AM [facility] Osmolality Calculated 309(H) 275 - 295 mOsm/kg 09/19/2024 1:18 AM [facility] eGFR by CKD-EPI 42(L) >=90 mL/min/1.7 3 m2 09/19/2024 1:18 AM [facility] Blood BLOOD SPECIMEN / Unknown Lab Venipuncture / Unknown 09/19/2024 12:36 AM [employer] 09/19/2024 12:53 AM [facility] Any Mccoy PA-C LAB - CHEMISTRY ORDERABLES [facility] [address] [place] [phone], [facility] [phone] * PHOSPHORUS BLOOD (09/19/2024 12:36 AM [facility]) Only the most recent of5 resultswithin the time period is included. Phosphorus 3.9 2.9 - 5.1 mg/dL 09/19/2024 1:18 AM [facility] Blood BLOOD SPECIMEN / Unknown Lab Venipuncture / Unknown 09/19/2024 12:36 AM [employer] 09/19/2024 12:53 AM [employer] Any Deterding PA-C LAB - CHEMISTRY ORDERABLES Performing Organization Address City/[facility]/ZIP Co de Phone Number [address] [phone], [facility] [phone] * MAGNESIUM BLOOD (09/19/2024 12:36 AM [employer]) Only the most recent of5 resultswithin the time period is included. Magnesium 2.0 1.6 - 2.6 mg/dL 09/19/2024 1:18 AM [employer] [facility] Blood BLOOD SPECIMEN / Unknown Lab Venipuncture / Unknown 09/19/2024 12:36 AM [employer] 09/19/2024 12:53 AM [employer] Any Deterding PA-C LAB - CHEMISTRY ORDERABLES Performing Organization Address [facility] Co de Phone Number [address] [phone], [facility] [phone] * XR Femur Left 2Vw (09/14/2024 5:38 PM [employer]) Anatomical Region Laterality Modality Lower Extremity Digital Radiogra phy 09/14/2024 5:13 PM [employer] Narrative 09/14/2024 8:44 PM [employer] PROCEDURE: ??XR FEMUR LEFT 2VW, DATE/TIME OF EXAM: ??09/14/2024 4:46 PM, LOCATION ??[facility] INDICATION: W19.XXXA: Fall, initial encounter COMPARISON: CT left hip and extrarenal pelvis with left hip 09/14/2024. FINDINGS/IMPRESSION: Redemonstration of age indeterminate fracture of the femoral neck/intertrochanteric region. Postsurgical changes of left hip fixation with intramedullary stephie and screw. The alignment appears normal. Atherosclerotic calcifications of the arteries. Report dictated by Ming Fair MD, (Technical Cable Jointer). I, Armando Obando MD have personally reviewed and interpreted this examination/study. > Interpreting Provider: Armando Obando MD on 09/14/2024 8:44 PM Procedure Note Armando Obando MD - 09/14/2024 PROCEDURE: XR FEMUR LEFT 2VW, DATE/TIME OF EXAM: 09/14/2024 4:46 PM, LOCATION [facility] INDICATION: W19.XXXA: Fall, initial encounter COMPARISON: CT left hip and extrarenal pelvis with left hip 09/14/2024. FINDINGS/IMPRESSION: Redemonstration of age indeterminate fracture of the femoral neck/intertrochanteric region. Postsurgical changes of left hip fixation with intramedullary stephie and screw. The alignment appears normal. Atherosclerotic calcifications of the arteries. Report dictated by Ming Fair MD, (Technical Cable Jointer). Armando Moore MD have personally reviewed and interpreted this examination/study. > Interpreting Provider: Armando Obando MD on 09/14/2024 8:44 PM Ki Beckford III, MD DIAGNOSTIC IMAG ING ORDERABLES * CARDIAC EKG ORDER (09/14/2024 1:13 PM [employer]) Narrative 09/14/2024 1:13 PM [employer] Ordered by an unspecified provider. Scanned Document CARDIAC SERVICES ORD ERABLES * CT Hip Left Wo Contrast (09/14/2024 8:46 AM [employer]) Anatomical Region Laterality Modality Lower Extremity Computed Tomogra phy 09/14/2024 11:3 4 AM [employer] Impressions 09/14/2024 12:02 PM [employer] IMPRESSION: 1.Age-indeterminate comminuted fracture of the femoral neck and mildly displaced fracture of the proximal femoral shaft. Subacute postsurgical changes of left hip fixation with intramedullary stephie and screw. Recommend direct comparison with prior imaging. 2.Likely seroma (or a Tyler-Christie lesion) in the lateral left superior lower extremity measuring up to 4.9 cm. Report dictated by Gia Sargent MD (residential sales manager). Manisha Moore MD have personally reviewed and interpreted this examination/study. > Interpreting Provider: Manisha Singer MD on 09/14/2024 12:02 PM Narrative 09/14/2024 12:02 PM [employer] PROCEDURE: ??CT HIP LEFT WO CONTRAST DATE/TIME OF EXAM: ??09/14/2024 8:46 AM CLINICAL INFORMATION: None relevant/not provided if blank. Indication: W19.XXXA: Fall, initial encounter Additional History: COMPARISON: None. TECHNIQUE: CT of the left hip' was performed utilizing standard protocol. CT dose reduction technique was used, including Automated Exposure Control. FINDINGS: Subacute postsurgical changes of a left hip fixation with intramedullary stephie and screw. Acute/subacute comminuted fracture of the femoral neck and mildly displaced fracture of the proximal femoral shaft. Per chart review, left hip fixation was 6 days prior. Without prior images to review acuity of comminuted femoral neck fracture and proximal femoral shaft displaced fracture is indeterminate. There is soft tissue lesion in the lateral left superior lower extremity measuring up to 4.9 cm in craniocaudal dimension which could indicate postsurgical seroma or a Tyler-Christie lesion. Mild hip joint effusion/hemarthrosis. Osteoarthritic changes with chondrocalcinosis (calcium pyrophosphate dihydrate [CPPD' deposition) in the left hip and pubic symphysis. Osteosarcopenia. Atherosclerotic calcifications. Procedure Note Manisha Singer MD - 09/14/2024 PROCEDURE: CT HIP LEFT WO CONTRAST DATE/TIME OF EXAM: 09/14/2024 8:46 AM CLINICAL INFORMATION: None relevant/not provided if blank. Indication: W19.XXXA: Fall, initial encounter Additional History: COMPARISON: None. TECHNIQUE: CT of the left hip' was performed utilizing standard protocol. CT dose reduction technique was used, including Automated ExposureControl. FINDINGS: Subacute postsurgical changes of a left hip fixation with intramedullary stephie and screw. Acute/subacute comminuted fracture of the femoral neckand mildly displaced fracture of the proximal femoral shaft. Per chartreview, left hip fixation was 6 days prior. Without prior images to reviewacuity of comminuted femoral neck fracture and proximal femoral shaft displaced fracture is indeterminate. There is soft tissue lesion in the lateralleft superior lower extremity measuring up to 4.9 cm in craniocaudaldimension which could indicate postsurgical seroma or a Tyler-Christie lesion. Mild hip joint effusion/hemarthrosis. Osteoarthritic changes with chondrocalcinosis (calcium pyrophosphate dihydrate [CPPD' deposition) in the left hip and pubic symphysis. Osteosarcopenia. Atherosclerotic calcifications. IMPRESSION: 1.Age-indeterminate comminuted fracture of the femoral neck and mildly displaced fracture of the proximal femoral shaft. Subacute postsurgical changes of left hip fixation with intramedullary stephie and screw.Recommend direct comparison with prior imaging. 2.Likely seroma (or a Tyler-Christie lesion) in the lateral left superior lower extremity measuring up to 4.9 cm. Report dictated by Gia Sargent MD (residential sales manager). I, Manisha Singer MD have personally reviewed and interpreted this examination/study. > Interpreting Provider: Manisha Sinegr MD on 09/14/2024 12:02 PM Any Mccoy PA-C CT ORDERABLES * (ABNORMAL) TROPONIN-I HIGH SENSITIVE REFLEX 1HOUR (09/14/2024 2:15 AM [employer]) Pathologist [facility] Troponin I High Sensitive 32(H) <=14 ng/L 09/14/2024 3:38 AM [facility] Delta Troponin I HS 09/14/2024 3:38 AM [employer] [facility] Comment:Delta value intentio stanford not calculated. Baseline to 1 hour specimen collection interval exceeded. Blood BLOOD SPECIMEN / Unknown Venipuncture / Unknown 09/14/2024 2:15 AM [employer] 09/14/2024 2:59 AM [employer] Lam David MD LAB - CHEMISTRY [facility] [address] [place] [id number], [facility] [phone] * VITAMIN D 25-HYDROXY (09/14/2024 2:15 AM [employer]) Vitamin D, 25 Hydroxy 73.0 30.0 - 80.0 ng/mL 09/14/2024 3:12 PM [employer] [facility] Comment: The recommendations for 25-Hydroxy Vitamin D clinical decision points are as follows: ? Deficient: ? <20.0 ng/mL ? Insufficient: ? 20.0 - 29.9 ng/mL ? Sufficient: ? 30.0 - 100.0 ng/mL ? Potential Toxicity: ??>100 ng/mL Reference: The Endocrine Society Clinical Practice Guidelines. 2011 If the 25-Hydroxy Vitamin D results are inconsitent with clinical evidence, it is recommended that follow-up testing using a method such as LC/MS/MS be performed to confirm the result. ? Blood BLOOD SPECIMEN / Unknown Venipuncture / Unknown 09/14/2024 2:15 AM [employer] 09/14/2024 2:59 AM [employer] Mercedes Boateng PA-C LAB - CHEMIS TRY ORDERABLES Performing Organization Address [facility]/State/[facility] Co de Phone Number [address] [id number], [facility] [phone] * XR Pelvis W Left Hip 2Vw (09/14/2024 1:44 AM [employer]) Anatomical Region Laterality Modality Pelvis Digital Radiogra phy 09/14/2024 2:48 AM [employer] Narrative 09/14/2024 6:03 AM [employer] EXAMINATION: XR PELVIS W LEFT HIP 2VW DATE/TIME OF EXAM: ??09/14/2024 1:54 AM, LOCATION ??[facility] HISTORY: W19.XXXA: Fall, initial encounter Fracture COMPARISON: No prior study is available for comparison. FINDINGS/IMPRESSION: The partially visualized stephie and screw internal fixation of the proximal femur is intact. There is cortical irregularity of the lesser trochanter/intertrochanteric region of the left femur which may represent an acute to subacute fracture, recommend correlation with point tenderness. ??Bilateral femoral heads are well-seated in respective acetabular fossas.Degenerative change is present at bilateral hip joints. There is no pubic symphysis diastasis. The sacroiliac joints are not widened. Cutaneous ronnell are seen lateral left hip. Report dictated by Ze Gama MD (residential sales manager). Armando Moore MD have personally reviewed and interpreted this examination/study. > Interpreting Provider: Armando Obando MD on 09/14/2024 6:03 AM Procedure Note Armando Obando MD - 09/14/2024 EXAMINATION: XR PELVIS W LEFT HIP 2VW DATE/TIME OF EXAM: 09/14/2024 1:54 AM, LOCATION [facility] HISTORY: W19.XXXA: Fall, initial encounter Fracture COMPARISON: No prior study is available for comparison. FINDINGS/IMPRESSION: The partially visualized stephie and screw internal fixation of the proximal femur is intact. There is cortical irregularity of the lessertrochanter/intertrochanteric region of the left femur which may represent an acute to subacutefracture, recommend correlation with point tenderness. Bilateral femoral headsare well-seated in respective acetabular fossas.Degenerative change ispresent at bilateral hip joints. There is no pubic symphysis diastasis. The sacroiliac joints are not widened. Cutaneous ronnell are seen lateralleft hip. Report dictated by Ze Gama MD (residential sales manager). Armando Moore MD have personally reviewed and interpreted this examination/study. > Interpreting Provider: Armando Obando MD on 09/14/2024 6:03 AM Lam David MD DIAGNOSTIC IMAGING O RDERABLES * (ABNORMAL) TROPONIN-I HIGH SENSITIVE BASELINE + 1HR (09/14/2024 12:23 AM [employer]) Troponin I High Sensitive 32(H) <=14 ng/L 09/14/2024 1:02 AM [employer] [facility] Blood BLOOD SPECIMEN / Unknown Venipuncture / Unknown 09/14/2024 12:23 AM [employer] 09/14/2024 12:30 AM [employer] Lam David MD LAB - CHEMISTRY [facility] [address] [place] [phone], [facility] [phone] * CT Cervical Spine Wo Contrast (09/13/2024 7:15 PM [employer]) Anatomical Region Laterality Modality Spine Computed Tomogra phy 09/13/2024 7:09 PM [employer] Impressions 09/13/2024 7:57 PM [employer] IMPRESSION: 1.No acute intracranial hemorrhage, midline shift, or significant mass effect. 2.No acute facial bone fractures identified. 3.No evidence of acute fracture in the cervical spine. 4.There is a prominent left thyroid nodule. A nonemergent thyroid ultrasound is recommended for further evaluation. > Dictated by Ming Fair MD (Technical Cable Jointer) IGiles MD have personally reviewed and interpreted this examination/study. > Interpreting Provider: Giles Moya MD on 09/13/2024 7:57 PM Narrative 09/13/2024 7:57 PM [employer] PROCEDURE: ??CT HEAD WO CONTRAST, CT CERVICAL SPINE WO CONTRAST, CT FACIAL BONES WO CONTRAST, DATE/TIME OF EXAM: ??09/13/2024 7:21 PM, LOCATION ??[facility] INDICATION: W19.XXXA: Fall, initial encounter S00.03XA: Contusion of scalp, initial encounter H53.9: Vision changes EXAMINATION: 1. Computed tomography (CT) of the head without contrast 2. CT of the maxillofacial bones, orbits, and paranasal sinuses without contrast 3. CT of the cervical spine without contrast ADDITIONAL CLINICAL INFORMATION: Ordering Provider Reason For Exam: ??R/O ICH (accession [id number]), r/o frx (accession [id number]), r/o frx (accession [id number]) TECHNIQUE: CT of the head, cervical spine, and maxillofacial bones, orbits, and paranasal sinuses was performed without contrast according to standard protocol. COMPARISON: No prior study is available for comparison at the time of this dictation. FINDINGS: Head: No acute intra- or extra-axial fluid collections are identified. There is mild cerebral volume loss with associated ex vacuo ventricular dilatation. The basilar cisterns are patent. No mass effect or midline shift is seen. The avendano-white matter differentiation is normal. Periventricular white matter hypoattenuation is indicative of chronic small vessel ischemic disease. There is vascular calcification of the carotid siphons and V4 segments of the vertebral arteries. No acute calvarial fracture is identified. Maxillofacial: Other than bilateral cataract extractions, the orbits appear normal. The paranasal sinuses are clear. The nasal septum is deviated to the right with spur formation. The hard palate, mandible, and temporomandibular joints appear normal. No acute facial bone fractures are identified. The mastoid air cells are clear. No soft tissue abnormality is identified. The patient is edentulous. Cervical spine: Straightening of the cervical lordosis. Trace anterolisthesis of C3 on C4. The alignment is otherwise maintained. The bones are osteopenic. Vertebral bodies are normal in height without evidence of acute fracture. Other than middle atlantoaxial joint osteoarthritis, the craniocervical junction appears normal. There is advanced degenerative disc disease. Mild to moderate central canal stenosis at C3-4 and C6-7, severe central canal stenosis at C4-5 and C5-6 secondary to posterior disc bulge and degenerative changes. There are varying degrees of advanced facet osteoarthritis. There are varying degrees of advanced uncovertebral joint osteoarthritis with the same degree of neural foraminal stenosis at these levels. There is atherosclerotic calcification of the carotid bifurcations. A 2.5 cm left thyroid gland nodule. Brain injury guidelines: Skull fracture: No Subdural hematoma: No subdural hematoma. Epidural hematoma: No epidural hematoma. Intraparenchymal hemorrhage: No intraparenchymal hemorrhage. Subarachnoid hemorrhage: No subarachnoid hemorrhage. Intraventricular hemorrhage: No. Midline shift: No. Procedure Note Giles Moya MD - 09/13/2024 PROCEDURE: CT HEAD WO CONTRAST, CT CERVICAL SPINE WO CONTRAST, CTFACIAL BONES WO CONTRAST, DATE/TIME OF EXAM: 09/13/2024 7:21 PM, LOCATION [facility] INDICATION: W19.XXXA: Fall, initial encounter S00.03XA: Contusion of scalp, initial encounter H53.9: Vision changes EXAMINATION: 1. Computed tomography (CT) of the head without contrast 2. CT of the maxillofacial bones, orbits, and paranasal sinuses without contrast 3. CT of the cervical spine without contrast ADDITIONAL CLINICAL INFORMATION: Ordering Provider Reason For Exam: R/O ICH (accession [id number]), r/ofrx (accession [id number]), r/o frx (accession [id number]) TECHNIQUE: CT of the head, cervical spine, and maxillofacial bones,orbits, and paranasal sinuses was performed without contrast according tostandard protocol. COMPARISON: No prior study is available for comparison at the time ofthis dictation. FINDINGS: Head: No acute intra- or extra-axial fluid collections are identified. Thereis mild cerebral volume loss with associated ex vacuo ventriculardilatation. The basilar cisterns are patent. No mass effect or midline shift isseen. The avendano-white matter differentiation is normal. Periventricular white matter hypoattenuation is indicative of chronic small vessel ischemic disease. There is vascular calcification of the carotid siphons and V4 segments of the vertebral arteries. No acute calvarial fracture is identified. Maxillofacial: Other than bilateral cataract extractions, the orbits appear normal. The paranasal sinuses are clear. The nasal septum is deviated to the rightwith spur formation. The hard palate, mandible, and temporomandibular joints appear normal. No acute facial bone fractures are identified. Themastoid air cells are clear. No soft tissue abnormality is identified. Thepatient is edentulous. Cervical spine: Straightening of the cervical lordosis. Trace anterolisthesis of C3 onC4. The alignment is otherwise maintained. The bones are osteopenic.Vertebral bodies are normal in height without evidence of acute fracture. Otherthan middle atlantoaxial joint osteoarthritis, the craniocervical junction appears normal. There is advanced degenerative disc disease. Mild to moderate central canal stenosis at C3-4 and C6-7, severe central canal stenosis at C4-5 and C5-6 secondary to posterior disc bulge and degenerative changes. There are varying degrees of advanced facet osteoarthritis. There are varying degrees of advanced uncovertebraljoint osteoarthritis with the same degree of neural foraminal stenosis atthese levels. There is atherosclerotic calcification of the carotidbifurcations. A 2.5 cm left thyroid gland nodule. Brain injury guidelines: Skull fracture: No Subdural hematoma: No subdural hematoma. Epidural hematoma: No epidural hematoma. Intraparenchymal hemorrhage: No intraparenchymal hemorrhage. Subarachnoid hemorrhage: No subarachnoid hemorrhage. Intraventricular hemorrhage: No. Midline shift: No. IMPRESSION: 1.No acute intracranial hemorrhage, midline shift, or significant mass effect. 2.No acute facial bone fractures identified. 3.No evidence of acute fracture in the cervical spine. 4.There is a prominent left thyroid nodule. A nonemergent thyroid ultrasound is recommended for further evaluation. > Dictated by Ming Fair MD (Technical Cable Jointer) Giles Moore MD have personally reviewed and interpretedthis examination/study. > Interpreting Provider: Giles Moya MD on 09/13/2024 7:57 PM Silvina Galo PA-C CT ORDERABLES * CT Facial Bones Wo Contrast (09/13/2024 7:15 PM [employer]) Anatomical Region Laterality Modality Head Computed Tomogra phy 09/13/2024 7:09 PM [employer] Impressions 09/13/2024 7:57 PM [employer] IMPRESSION: 1.No acute intracranial hemorrhage, midline shift, or significant mass effect. 2.No acute facial bone fractures identified. 3.No evidence of acute fracture in the cervical spine. 4.There is a prominent left thyroid nodule. A nonemergent thyroid ultrasound is recommended for further evaluation. > Dictated by Ming Fair MD (Technical Cable Jointer) Giles Moore MD have personally reviewed and interpreted this examination/study. > Interpreting Provider: Giles Moya MD on 09/13/2024 7:57 PM Narrative 09/13/2024 7:57 PM [employer] PROCEDURE: ??CT HEAD WO CONTRAST, CT CERVICAL SPINE WO CONTRAST, CT FACIAL BONES WO CONTRAST, DATE/TIME OF EXAM: ??09/13/2024 7:21 PM, LOCATION ??[facility] INDICATION: W19.XXXA: Fall, initial encounter S00.03XA: Contusion of scalp, initial encounter H53.9: Vision changes EXAMINATION: 1. Computed tomography (CT) of the head without contrast 2. CT of the maxillofacial bones, orbits, and paranasal sinuses without contrast 3. CT of the cervical spine without contrast ADDITIONAL CLINICAL INFORMATION: Ordering Provider Reason For Exam: ??R/O ICH (accession [id number]), r/o frx (accession [id number]), r/o frx (accession [id number]) TECHNIQUE: CT of the head, cervical spine, and maxillofacial bones, orbits, and paranasal sinuses was performed without contrast according to standard protocol. COMPARISON: No prior study is available for comparison at the time of this dictation. FINDINGS: Head: No acute intra- or extra-axial fluid collections are identified. There is mild cerebral volume loss with associated ex vacuo ventricular dilatation. The basilar cisterns are patent. No mass effect or midline shift is seen. The avendano-white matter differentiation is normal. Periventricular white matter hypoattenuation is indicative of chronic small vessel ischemic disease. There is vascular calcification of the carotid siphons and V4 segments of the vertebral arteries. No acute calvarial fracture is identified. Maxillofacial: Other than bilateral cataract extractions, the orbits appear normal. The paranasal sinuses are clear. The nasal septum is deviated to the right with spur formation. The hard palate, mandible, and temporomandibular joints appear normal. No acute facial bone fractures are identified. The mastoid air cells are clear. No soft tissue abnormality is identified. The patient is edentulous. Cervical spine: Straightening of the cervical lordosis. Trace anterolisthesis of C3 on C4. The alignment is otherwise maintained. The bones are osteopenic. Vertebral bodies are normal in height without evidence of acute fracture. Other than middle atlantoaxial joint osteoarthritis, the craniocervical junction appears normal. There is advanced degenerative disc disease. Mild to moderate central canal stenosis at C3-4 and C6-7, severe central canal stenosis at C4-5 and C5-6 secondary to posterior disc bulge and degenerative changes. There are varying degrees of advanced facet osteoarthritis. There are varying degrees of advanced uncovertebral joint osteoarthritis with the same degree of neural foraminal stenosis at these levels. There is atherosclerotic calcification of the carotid bifurcations. A 2.5 cm left thyroid gland nodule. Brain injury guidelines: Skull fracture: No Subdural hematoma: No subdural hematoma. Epidural hematoma: No epidural hematoma. Intraparenchymal hemorrhage: No intraparenchymal hemorrhage. Subarachnoid hemorrhage: No subarachnoid hemorrhage. Intraventricular hemorrhage: No. Midline shift: No. Procedure Note Giles Moya MD - 12/15/2024 PROCEDURE: CT HEAD WO CONTRAST, CT CERVICAL SPINE WO CONTRAST, CTFACIAL BONES WO CONTRAST, DATE/TIME OF EXAM: 09/13/2024 7:21 PM, LOCATION [facility] INDICATION: W19.XXXA: Fall, initial encounter S00.03XA: Contusion of scalp, initial encounter H53.9: Vision changes EXAMINATION: 1. Computed tomography (CT) of the head without contrast 2. CT of the maxillofacial bones, orbits, and paranasal sinuses without contrast 3. CT of the cervical spine without contrast ADDITIONAL CLINICAL INFORMATION: Ordering Provider Reason For Exam: R/O ICH (accession [id number]), r/ofrx (accession [id number]), r/o frx (accession [id number]) TECHNIQUE: CT of the head, cervical spine, and maxillofacial bones,orbits, and paranasal sinuses was performed without contrast according tostandard protocol. COMPARISON: No prior study is available for comparison at the time ofthis dictation. FINDINGS: Head: No acute intra- or extra-axial fluid collections are identified. Thereis mild cerebral volume loss with associated ex vacuo ventriculardilatation. The basilar cisterns are patent. No mass effect or midline shift isseen. The avendano-white matter differentiation is normal. Periventricular white matter hypoattenuation is indicative of chronic small vessel ischemic disease. There is vascular calcification of the carotid siphons and V4 segments of the vertebral arteries. No acute calvarial fracture is identified. Maxillofacial: Other than bilateral cataract extractions, the orbits appear normal. The paranasal sinuses are clear. The nasal septum is deviated to the rightwith spur formation. The hard palate, mandible, and temporomandibular joints appear normal. No acute facial bone fractures are identified. Themastoid air cells are clear. No soft tissue abnormality is identified. Thepatient is edentulous. Cervical spine: Straightening of the cervical lordosis. Trace anterolisthesis of C3 onC4. The alignment is otherwise maintained. The bones are osteopenic.Vertebral bodies are normal in height without evidence of acute fracture. Otherthan middle atlantoaxial joint osteoarthritis, the craniocervical junction appears normal. There is advanced degenerative disc disease. Mild to moderate central canal stenosis at C3-4 and C6-7, severe central canal stenosis at C4-5 and C5-6 secondary to posterior disc bulge and degenerative changes. There are varying degrees of advanced facet osteoarthritis. There are varying degrees of advanced uncovertebraljoint osteoarthritis with the same degree of neural foraminal stenosis atthese levels. There is atherosclerotic calcification of the carotidbifurcations. A 2.5 cm left thyroid gland nodule. Brain injury guidelines: Skull fracture: No Subdural hematoma: No subdural hematoma. Epidural hematoma: No epidural hematoma. Intraparenchymal hemorrhage: No intraparenchymal hemorrhage. Subarachnoid hemorrhage: No subarachnoid hemorrhage. Intraventricular hemorrhage: No. Midline shift: No. IMPRESSION: 1.No acute intracranial hemorrhage, midline shift, or significant mass effect. 2.No acute facial bone fractures identified. 3.No evidence of acute fracture in the cervical spine. 4.There is a prominent left thyroid nodule. A nonemergent thyroid ultrasound is recommended for further evaluation. > Dictated by Ming Fair MD (Technical Cable Jointer) Giles Moore MD have personally reviewed and interpretedthis examination/study. > Interpreting Provider: Giles Moya MD on 09/13/2024 7:57 PM Silvina Galo PA-C CT ORDERABLES * CT Head Wo Contrast (09/13/2024 7:15 PM [employer]) Anatomical Region Laterality Modality Head Computed Tomogra phy 09/13/2024 7:09 PM [employer] Impressions 09/13/2024 7:57 PM [employer] IMPRESSION: 1.No acute intracranial hemorrhage, midline shift, or significant mass effect. 2.No acute facial bone fractures identified. 3.No evidence of acute fracture in the cervical spine. 4.There is a prominent left thyroid nodule. A nonemergent thyroid ultrasound is recommended for further evaluation. > Dictated by Ming Fair MD (Technical Cable Jointer) Giles Moore MD have personally reviewed and interpreted this examination/study. > Interpreting Provider: Giles Moya MD on 09/13/2024 7:57 PM Narrative 09/13/2024 7:57 PM [employer] PROCEDURE: ??CT HEAD WO CONTRAST, CT CERVICAL SPINE WO CONTRAST, CT FACIAL BONES WO CONTRAST, DATE/TIME OF EXAM: ??09/13/2024 7:21 PM, LOCATION ??[facility] INDICATION: W19.XXXA: Fall, initial encounter S00.03XA: Contusion of scalp, initial encounter H53.9: Vision changes EXAMINATION: 1. Computed tomography (CT) of the head without contrast 2. CT of the maxillofacial bones, orbits, and paranasal sinuses without contrast 3. CT of the cervical spine without contrast ADDITIONAL CLINICAL INFORMATION: Ordering Provider Reason For Exam: ??R/O ICH (accession [id number]), r/o frx (accession [id number]), r/o frx (accession [id number]) TECHNIQUE: CT of the head, cervical spine, and maxillofacial bones, orbits, and paranasal sinuses was performed without contrast according to standard protocol. COMPARISON: No prior study is available for comparison at the time of this dictation. FINDINGS: Head: No acute intra- or extra-axial fluid collections are identified. There is mild cerebral volume loss with associated ex vacuo ventricular dilatation. The basilar cisterns are patent. No mass effect or midline shift is seen. The avendano-white matter differentiation is normal. Periventricular white matter hypoattenuation is indicative of chronic small vessel ischemic disease. There is vascular calcification of the carotid siphons and V4 segments of the vertebral arteries. No acute calvarial fracture is identified. Maxillofacial: Other than bilateral cataract extractions, the orbits appear normal. The paranasal sinuses are clear. The nasal septum is deviated to the right with spur formation. The hard palate, mandible, and temporomandibular joints appear normal. No acute facial bone fractures are identified. The mastoid air cells are clear. No soft tissue abnormality is identified. The patient is edentulous. Cervical spine: Straightening of the cervical lordosis. Trace anterolisthesis of C3 on C4. The alignment is otherwise maintained. The bones are osteopenic. Vertebral bodies are normal in height without evidence of acute fracture. Other than middle atlantoaxial joint osteoarthritis, the craniocervical junction appears normal. There is advanced degenerative disc disease. Mild to moderate central canal stenosis at C3-4 and C6-7, severe central canal stenosis at C4-5 and C5-6 secondary to posterior disc bulge and degenerative changes. There are varying degrees of advanced facet osteoarthritis. There are varying degrees of advanced uncovertebral joint osteoarthritis with the same degree of neural foraminal stenosis at these levels. There is atherosclerotic calcification of the carotid bifurcations. A 2.5 cm left thyroid gland nodule. Brain injury guidelines: Skull fracture: No Subdural hematoma: No subdural hematoma. Epidural hematoma: No epidural hematoma. Intraparenchymal hemorrhage: No intraparenchymal hemorrhage. Subarachnoid hemorrhage: No subarachnoid hemorrhage. Intraventricular hemorrhage: No. Midline shift: No. Procedure Note Giles Moya MD - 09/13/2024 PROCEDURE: CT HEAD WO CONTRAST, CT CERVICAL SPINE WO CONTRAST, CTFACIAL BONES WO CONTRAST, DATE/TIME OF EXAM: 09/13/2024 7:21 PM, LOCATION [facility] INDICATION: W19.XXXA: Fall, initial encounter S00.03XA: Contusion of scalp, initial encounter H53.9: Vision changes EXAMINATION: 1. Computed tomography (CT) of the head without contrast 2. CT of the maxillofacial bones, orbits, and paranasal sinuses without contrast 3. CT of the cervical spine without contrast ADDITIONAL CLINICAL INFORMATION: Ordering Provider Reason For Exam: R/O ICH (accession [id number]), r/ofrx (accession [id number]), r/o frx (accession [id number]) TECHNIQUE: CT of the head, cervical spine, and maxillofacial bones,orbits, and paranasal sinuses was performed without contrast according tostandard protocol. COMPARISON: No prior study is available for comparison at the time ofthis dictation. FINDINGS: Head: No acute intra- or extra-axial fluid collections are identified. Thereis mild cerebral volume loss with associated ex vacuo ventriculardilatation. The basilar cisterns are patent. No mass effect or midline shift isseen. The avendano-white matter differentiation is normal. Periventricular white matter hypoattenuation is indicative of chronic small vessel ischemic disease. There is vascular calcification of the carotid siphons and V4 segments of the vertebral arteries. No acute calvarial fracture is identified. Maxillofacial: Other than bilateral cataract extractions, the orbits appear normal. The paranasal sinuses are clear. The nasal septum is deviated to the rightwith spur formation. The hard palate, mandible, and temporomandibular joints appear normal. No acute facial bone fractures are identified. Themastoid air cells are clear. No soft tissue abnormality is identified. Thepatient is edentulous. Cervical spine: Straightening of the cervical lordosis. Trace anterolisthesis of C3 onC4. The alignment is otherwise maintained. The bones are osteopenic.Vertebral bodies are normal in height without evidence of acute fracture. Otherthan middle atlantoaxial joint osteoarthritis, the craniocervical junction appears normal. There is advanced degenerative disc disease. Mild to moderate central canal stenosis at C3-4 and C6-7, severe central canal stenosis at C4-5 and C5-6 secondary to posterior disc bulge and degenerative changes. There are varying degrees of advanced facet osteoarthritis. There are varying degrees of advanced uncovertebraljoint osteoarthritis with the same degree of neural foraminal stenosis atthese levels. There is atherosclerotic calcification of the carotidbifurcations. A 2.5 cm left thyroid gland nodule. Brain injury guidelines: Skull fracture: No Subdural hematoma: No subdural hematoma. Epidural hematoma: No epidural hematoma. Intraparenchymal hemorrhage: No intraparenchymal hemorrhage. Subarachnoid hemorrhage: No subarachnoid hemorrhage. Intraventricular hemorrhage: No. Midline shift: No. IMPRESSION: 1.No acute intracranial hemorrhage, midline shift, or significant mass effect. 2.No acute facial bone fractures identified. 3.No evidence of acute fracture in the cervical spine. 4.There is a prominent left thyroid nodule. A nonemergent thyroid ultrasound is recommended for further evaluation. > Dictated by Ming Fair MD (Technical Cable Jointer) IGiles MD have personally reviewed and interpretedthis examination/study. > Interpreting Provider: Giles Moya MD on 09/13/2024 7:57 PM Silvina Galo PA-C CT ORDERABLES * PT-INR [facility] (09/13/2024 5:59 PM [employer]) PT 12.7 12.1 - 14.8 Seconds 09/13/2024 6:26 PM [employer] [facility] INR 1.0 See Comment 09/13/2024 6:26 PM [employer] [facility] Comment:The suggested therap eutic range for standard coumadin (warfarin) therapy is an INR of 2.0-3.0. For high-risk patients (Mechanical Mitral Valve Prosthesis, etc.), the suggested prophylactic therapeutic range is an INR of 2.5-3.5. Blood BLOOD SPECIMEN / Unknown Venipuncture / Unknown 09/13/2024 5:59 PM [employer] 09/13/2024 6:03 PM [employer] Silvina Galo PA-C LAB - COAGULATION ORDERABLES Performing Organization Address [facility]/State/ZIP Co de Phone Number [facility] [address] [place] [address], [facility] [phone] * (ABNORMAL) CBC W AUTO DIFFERENTIAL (09/13/2024 5:59 PM [employer]) WBC 8.9 4.0 - 10.7 x10E9/L 09/13/2024 6:09 PM [facility] RBC Count 3.99 3.90 - 5.20 x10E12/L 09/13/2024 6:09 PM [facility] Hemoglobin 11.7(L) 11.9 - 15.8 g/dL 09/13/2024 6:09 PM [facility] Hematocrit 36.5 34.8 - 46.1 % 09/13/2024 6:09 PM [facility] MCV 91.5 80.0 - 98.0 fL 09/13/2024 6:09 PM [facility] MCH 29.3 26.7 - 33.6 pg 09/13/2024 6:09 PM [facility] MCHC 32.1 31.7 - 36.3 g/dL 09/13/2024 6:09 PM [facility] RDW-CV 18.1(H) 11.3 - 14.8 % 09/13/2024 6:09 PM [facility] Platelet Count 388 150 - 420 x10E9/L 09/13/2024 6:09 PM [facility] MPV 10.3 7.8 - 11.4 fL 09/13/2024 6:09 PM [facility] Neutrophil % 67.7 41.0 - 74.0 % 09/13/2024 6:09 PM [facility] Lymphocyte % 19.6 17.0 - 47.0 % 09/13/2024 6:09 PM [facility] Monocyte % 7.7 3.0 - 11.0 % 09/13/2024 6:09 PM [facility] Eosinophil % 3.6 0.0 - 7.0 % 09/13/2024 6:09 PM [facility] Basophil % 0.7 0.0 - 1.6 % 09/13/2024 6:09 PM [facility] Immature Granulocytes % 0.7 0.0 - 1.0 % 09/13/2024 6:09 PM [facility] Neutrophil Absolute 6.00 1.60 - 7.50 x10E9/L 09/13/2024 6:09 PM [facility] Lymphocyte Absolute 1.74 1.00 - 4.40 x10E9/L 09/13/2024 6:09 PM [facility] Monocyte Absolute 0.68 0.15 - 1.00 x10E9/L 09/13/2024 6:09 PM [facility] Eosinophil Absolute 0.32 0.00 - 0.60 x10E9/L 09/13/2024 6:09 PM [facility] Basophil Absolute 0.06 0.00 - 0.13 x10E9/L 09/13/2024 6:09 PM [facility] Blood BLOOD SPECIMEN / Unknown Venipuncture / Unknown 09/13/2024 5:59 PM [employer] 09/13/2024 6:04 PM [employer] Silvina Galo PA-C LAB - HEMATOLOGY O RDERABLES Performing Organization Address [facility] Co de Phone Number [facility] [address] [place] [id number] [phone] * (ABNORMAL) COMPREHENSIVE METABOLIC PANEL (09/13/2024 5:59 PM [employer]) BUN 36(H) 7 - 26 mg/dL 09/13/2024 6:34 PM [facility] Creatinine 1.39(H) 0.56 - 0.96 mg/dL 09/13/2024 6:34 PM [facility] Sodium 142 136 - 145 mmol/L 09/13/2024 6:34 PM [facility] Potassium 3.9 3.5 - 4.5 mmol/L 09/13/2024 6:34 PM [facility] Chloride 106 98 - 107 mmol/L 09/13/2024 6:34 PM [facility] CO2 24 22 - 29 mmol/L 09/13/2024 6:34 PM [facility] Glucose 156(H) 70 - 99 mg/dL 09/13/2024 6:34 PM [facility] Calcium 9.3 8.4 - 10.2 mg/dL 09/13/2024 6:34 PM [facility] Protein Total 6.6 6.0 - 8.3 g/dL 09/13/2024 6:34 PM [facility] Albumin 3.1(L) 3.4 - 5.0 g/dL 09/13/2024 6:34 PM [facility] Bilirubin Total 0.7 0.2 - 1.2 mg/dL 09/13/2024 6:34 PM [facility] Alkaline Phosphatase 78 40 - 150 U/L 09/13/2024 6:34 PM [facility] ALT 95(H) 5 - 55 U/L 09/13/2024 6:34 PM [facility] AST 35(H) 5 - 34 U/L 09/13/2024 6:34 PM [facility] Anion Gap 12 6 - 16 09/13/2024 6:34 PM [facility] BUN/Creatinine Ratio 26(H) 7 - 23 09/13/2024 6:34 PM [facility] Osmolality Calculated 306(H) 275 - 295 mOsm/kg 09/13/2024 6:34 PM [facility] Albumin/Globulin Ratio 0.9(L) 1.1 - 2.3 09/13/2024 6:34 PM [facility] eGFR by CKD-EPI 39(L) >=90 mL/min/1.7 3 m2 09/13/2024 6:34 PM [facility] Blood BLOOD SPECIMEN / Unknown Venipuncture / Unknown 09/13/2024 5:59 PM [employer] 09/13/2024 6:04 PM [employer] Quenten E Iraj PA-C LAB - CHEMISTRY OR DERABLES [facility] [address] [place] [address], [facility] [phone] * (ABNORMAL) HEMOGLOBIN A1C (05/04/2023 4:06 AM CDT) Hemoglobin A1c 7.8(H) <=5.6 % 05/04/2023 2:37 PM CDT [facility] Estimated Average Glucose 177 mg/dL 05/04/2023 2:37 PM CDT [facility] Comment: HbA1c Interpretation: Normal : < 5.7% Pre-diabetes: 5.7-6.4% Diabetes: Equal to or greater than 6.5% Test results diagnostic of diabetes should be repeated for confirmation. Treatment target values recommended by ADA and other clinical organizations should be used to evaluate metabolic control in patients. Reference: [place] [employer], Standards of Care in Diabetes -2020 In patients 70 years and older consider HbA1c target range of 7.0-7.5% (Reference: Shakir Parada et al. JAMDA. 2012) The Sebia assay for the measurement of HbA1c is a National Glycohemoglobin Standardization Program (NGSP) certified method. Blood BLOOD SPECIMEN / Unknown Lab Venipuncture / Unknown 05/04/2023 4:06 AM CDT 05/04/2023 5:25 AM CDT Ru Pena MD LAB - CHEMISTRY ORD ERABLES Performing Organization Address City/[facility]/ZIP Co de Phone Number [facility] [address] [place] [address], [facility] [phone] from Last 3 Months or Most Recently Relevant to Health Maintenance Advance Directives * Full Code (Latest Code Status on File) Date Activated Date Inactivated Comments 09/14/2024 3:25 AM 09/19/2024 2:53 PM * Full Code Date Activated Date Inactivated Comments 05/03/2023 5:30 AM 05/05/2023 3:48 PM Care Teams Merchandise Director Relationship Specialty Start Date End Date Neftali Torres MD [address] [place] [address] PCP - General 06/05/16
--- OUTSIDE RECORDS SUMMARY | 2024-10-30 15:17 | XMS_ITS | Clinical Summary ---
Author Organization [facility] Address [address] [place] [address] Phone Care Team Providers Care Computer Forensics Investigator Name Role Phone Neftali Torres MD Primary Care Provider [phone] Allergies Active Allergy Reactions Criticality Noted Date Comments Codeine Unknown 09/25/2024 Tramadol Unknown 09/25/2024 Medications ASPIRIN 81 PO Take 81 mg by mouth daily. take one tablet by mouth once daily 4 Active acetaminophen (TYLENOL) 500 MG Tablet Take 500 mg by mouth every 4 hours as needed for Moderate or more severe pain. Take 1 tablet by mouth every 4 hours as needed for pain. Maximum allowable acetaminophen amount 4G (4000mg/24 hours) 4 Active cyclobenzaprine (FLEXERIL) 10 MG Tablet Take 10 mg by mouth 3 times daily as needed for Muscle spasms. Take 1 tablet by mouth 3 times daily as needed for muscle spasms 4 Active Metoprolol Succinate 50 MG Capsule ER 24 Hour Sprinkle Take 50 mg by mouth 2 times daily. Take 1 tablet by mouth 2 times daily 4 Active atorvastatin (LIPITOR) 80 MG Tablet Take 80 mg by mouth daily. Take 1 tablet by mouth at bedtime 4 Active ondansetron (ZOFRAN-ODT) 4 MG TABLET DISPERSIBLE Take 4 mg by mouth every 6 hours as needed for Nausea - 1st line. Take 1 tablet by mouth every 6 hours as needed for nausea/vomiting. allow tablet to dissolve on the sunny 4 Active Dapagliflozin Propanediol (Farxiga) 10 MG Tablet Take 10 mg by mouth every morning. Take 1 tablet by mouth every morning 4 Active DULoxetine (CYMBALTA) [address] Particles Take 30 mg by mouth daily. Take 1 capsule by mouth once daily 4 Active furosemide (LASIX) 40 MG Tablet Take 40 mg by mouth daily. take 1 tablet by mouth every morning 4 Active Encounters Date Type Department Care Team Description 10/19/2024 12:30 PM PACKAGING TECHNICIAN Home Care Visit [address] [address] Kirsten Camarillo, PT PT - [place]ASIS DISCHARGE 10/15/2024 11:00 AM PACKAGING TECHNICIAN Home Care Visit [address] [address] Shakira Torrez, CRYSTAL CUTTER PT - HOME VISIT 10/15/2024 10:00 AM PACKAGING TECHNICIAN Home Care Visit [address] [address] Bianca Flores OT OT - DISCIPLINE DISCHARGE 10/15/2024 Travel 10/14/2024 1:00 PM PACKAGING TECHNICIAN Home Care Visit [address] [address] Shakira Torrez, CRYSTAL CUTTER RESCHEDULED MISSED VISIT 10/13/2024 12:00 PM PACKAGING TECHNICIAN Home Care Visit [address] [address] Mallorie Chang LOCOMOTIVE FIRER OT - HOME VISIT 10/12/2024 4:00 PM PACKAGING TECHNICIAN Home Care Visit [address] [address] Shakira Torrez, CRYSTAL CUTTER PT - HOME VISIT 10/12/2024 Travel 10/09/2024 10:00 AM PACKAGING TECHNICIAN Home Care Visit [address] [address] Shakira Torrez, CRYSTAL CUTTER PT - HOME VISIT 10/09/2024 6:30 AM PACKAGING TECHNICIAN Home Care Visit [address] [address] Bianca Flores, OT OT - [place] SUPERVISORY VISIT 10/07/2024 10:00 AM PACKAGING TECHNICIAN Home Care Visit [address] [address] Mallorie Chang OTA OT - HOME VISIT 10/07/2024 Travel 10/06/2024 Home Care Visit [address] [address] Bianca Flores, OT CARE CONFERENCE 10/02/2024 10:30 AM PACKAGING TECHNICIAN Home Care Visit [address] [address] Mallorie Chang OTA OT - HOME VISIT 10/02/2024 Travel 10/01/2024 11:00 AM PACKAGING TECHNICIAN Home Care Visit [address] [address] Shakira Torrez, CRYSTAL CUTTER PT - HOME VISIT 09/28/2024 12:00 PM PACKAGING TECHNICIAN Home Care Visit [address] [address] Shakira Torrez, CRYSTAL CUTTER PT - HOME VISIT 09/28/2024 Home Care Visit [address] [address] Nydai Joseph, RN CASE COMMUNICATION 09/28/2024 Home Care Visit [address] [address] Kirsten Camarillo, PT TELEPHONE ENCOUNTER 09/25/2024 11:00 AM PACKAGING TECHNICIAN Home Care Visit [address] [address] Kirsten Camarillo, PT PT - INITIAL EVALUATION 09/25/2024 9:30 AM PACKAGING TECHNICIAN Home Care Visit [address] [address] Bianca Flores, OT OT - [place] START OF CARE 09/25/[address] [address] Bianca Flores, OT Medication Management 09/25/2024 Plan of Care Documentation [facility] [address] [place] [address] from Last 3 Months Social History Tobacco Use Types Packs/Day Years Used Date Smoking Tobacco: Never Assessed Comments Unknown Sex and Gender Information Value Date Recorded Sex Assigned at Not on file Legal Sex Female 10:30 AM PACKAGING TECHNICIAN Gender Identity Not on file Sexual Orientation Not on file Last Filed Vital Signs Vital Sign Reading Time Taken Comments Blood Pressure 128/80 10/19/2024 12:37 PM PACKAGING TECHNICIAN Pulse 86 10/19/2024 12:37 PM PACKAGING TECHNICIAN Temperature 36.2 ??C (97.2 ??F) 10/19/2024 12:[address] Respiratory Rate 18 10/19/2024 12:37 PM PACKAGING TECHNICIAN Oxygen Saturation 96% 10/19/2024 12:37 PM PACKAGING TECHNICIAN Inhaled Oxygen Concentration - - Weight 57.6 kg (127 lb) 10/19/2024 12:37 PM PACKAGING TECHNICIAN Height 149.9 cm (4' 11 ) 09/25/2024 10:45 AM PACKAGING TECHNICIAN Body Mass Index 25.65 09/25/2024 10:45 AM PACKAGING TECHNICIAN Plan of Treatment Health Maintenance Due Date Last Done Comments DEXA Bone Density 1945 Hepatitis C Virus (HCV) Screening 1945 TdaP Immunization 1945 Respiratory Syncytial Virus (RSV) Immunization (Adult) (1 - 1-dose 75+ series) 12/18/2022 SARS-COV-2 Immunization ( season) 2024 09/21/2021, 01/20/2021, 12/23/2020 Pneumococcal Immunization (50+ years) Completed 07/17/2017, 07/13/2017, 06/24/2014, Additional history exists Zoster Immunization Completed 03/14/2023, Influenza Immunization Completed , 08/13/2023, 08/30/2022, Additional history exists Hepatitis B Immunization Aged Out No longer eligible based on patient's age to complete this topic Meningococcal Immunization (ACWY) Aged Out No longer eligible based on patient's age to complete this topic Rotavirus Immunization Aged Out No lo nger eligible based on patient's age to complete this topic Insurance [facility]IC[facility] Advance Directives Documents on File Type Date Recorded 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
--- OUTSIDE RECORDS SUMMARY | 2024-10-30 15:17 | XMS_ITS | Clinical Summary ---
Author Organization [facility] QA on Request Address [address] [place] [address] Care Team Providers Care Honing Machine Operator Semiautomatic Name Role Phone Neftali Torres MD Primary Care Provider [phone] Source Comments [facility],non-owned Affiliates and Associated Physician Practices is amultiple site organization consisting of ambulatory clinics and hospital sitesin [place] and [place]. This disclosure is being madepursuant to the Care Everywhere program and may not contain all information available regarding this patient. Last updated 18.[facility] Allergies Active Allergy Reactions Criticality Noted Date [...] Hypoxia 05/03/2023 Acute respiratory failure with hypoxia Elevated troponin 05/03/2023 Encounters Date Type Department Care Team Description 09/22/2024 Telephone Transitional Care at [address] [address] Brooklyn Polk, structural steel engineer 09/21/2024 Telephone Transitional Care at [address] [address] Alyssa Gill RNstructural steel engineer 09/15/2024 Travel 09/13/2024 10:41 PM TOOL DESIGNER APPRENTICE - 09/19/2024 1:48 PM TOOL DESIGNER APPRENTICE Hospital Encounter [facility] SHORT STAY UNIT [address] [place] [address] Lam David MD Bhalla, Kishley, MD Morreale, Peter J III, MD Kent, Saida A, MD Emergency Medicine Discharge Disposition: Rehab:Inpatient from Last 3 Months Family History Medical History Relation Name Comments Early Brother Heart Disease Brother Diabetes Father Heart Disease Father Hypertension Father Hearing Loss Maternal Grandfather CVA Maternal Grandmother Diabetes Maternal Grandmother Hearing Loss Maternal Grandmother Heart Disease Maternal Grandmother Arthritis Mother Hearing Loss Mother Hypertension Mother Stillbirth/Multiple Miscarriages/Infertility Mother Arthritis Sister Cancer Sister Hearing Loss Sister Hypertension Sister Depression Son Early Son Heart Disease Son Hypertension Son Relation Name Status Comments Brother Father Maternal Grandfather Maternal Grandmother Mother Sister Son Social History Tobacco Use Types Packs/Day Years [...] and heating? Not hard at all 09/15/2024 [facility] - Occupational Stress [...] place to sleep or slept in a senior living (including now)? No 05/03/2023 Housing Stability Vital Sign Answer Sawyer e Recorded In the last 12 months, was t here a time when you were not able to pay the mortgage or rent on time? No 09/15/2024 In the past 12 months, how m any times have you moved where you were living? 0 09/15/2024 At any time in the past 12 m [facility], were you homeless or living in a senior living (including now)? No 09/15/2024 Sex and Gender Information Value Date Recorded Sex Assigned at Not on file Gender Identity Not on file Sexual Orientation Not on file Last Filed Vital Signs Vital Sign Reading Time Taken Comments Blood Pressure 154/83 09/19/2024 12:11 PM TOOL DESIGNER APPRENTICE Pulse 86 09/19/2024 12:11 PM TOOL DESIGNER APPRENTICE Temperature 37 ??C (98.6 ??F) 09/19/2024 12:11 PM TOOL DESIGNER APPRENTICE Respiratory Rate 14 09/19/2024 8:30 AM TOOL DESIGNER APPRENTICE Oxygen Saturation 94% 09/19/2024 12:11 PM TOOL DESIGNER APPRENTICE Inhaled Oxygen Concentration - - Weight 61.7 kg (136 lb) 09/19/2024 4:00 AM TOOL DESIGNER APPRENTICE Height 152.4 cm (5') 09/15/2024 1:00 AM TOOL DESIGNER APPRENTICE Body Mass Index 26.56 09/15/2024 1:00 AM TOOL DESIGNER APPRENTICE Plan of Treatment Health Maintenance Due Date Last Done Comments BONE DENSITY TESTING 1945 HEPATITIS C SCREENING 12/14/1965 DTAP/TDAP/TD VACCINES (1 - Tdap) 12/18/1966 PNEUMOCOCCAL VACCINE 50+ (1 of 2 - PCV) 12/18/1966 DIABETES-STATIN 1987 ZOSTER VACCINE (1 of 2) 12/18/1997 Respiratory Syncytial Virus (RSV) Vaccine Pt: or over 60 yrs (1 - 1-dose 75+ series) 12/18/2022 COVID-19 VACCINE (4 - season) 2024 09/21/2021, 01/20/2021, 12/23/2020 INFLUENZA VACCINE (#1) 2024 , 06/12/2021, 07/17/2019, Additional history exists DIABETES RETINOPATHY SCREENING 09/19/2024 DIABETES-FOOT EXAM WITH MONOFILAMENT 09/19/2024 DIABETES-HGB A1C 09/19/2024 05/04/2023, , 11/25/2021 DEPRESSION SCREENING 09/30/2024 DIABETES - URINE PROTEIN SCREENING 09/30/2024 MEDICARE AWV ? CALENDAR YEAR 2024 DIABETES-SERUM CREATININE 09/19/20252023, 09/18/2024, 09/17/2024, Additional history exists HEPATITIS B VACCINE Aged Out No longe r eligible based on patient's age to complete this topic HIB VACCINE Aged Out No longer eligi ble based on patient's age to complete this topic HPV VACCINE Aged Out No longer eligi ble based on patient's age to complete this topic MENINGOCOCCAL (Group B) VACCINE Aged Out No longer eligible based on patient's age to complete this topic MENINGOCOCCAL VACCINE Aged Out No tom gustabo eligible based on patient's age to complete this topic Procedures Procedure Name Priority Date/Time Associated Diagnosis Comments GLUCOSE - POINT OF CARE Routine 09/19/2024 12:12 PM TOOL DESIGNER APPRENTICE GLUCOSE - POINT OF CARE Routine 09/19/2024 8:37 AM TOOL DESIGNER APPRENTICE BASIC METABOLIC PANEL (CALCIUM TOTAL) AM Draw 09/19/2024 12:36 AM TOOL DESIGNER APPRENTICE MAGNESIUM BLOOD Routine 09/19/2024 12:36 AM TOOL DESIGNER APPRENTICE PHOSPHORUS BLOOD Routine 09/19/2024 12:3 6 AM TOOL DESIGNER APPRENTICE CBC W/O DIFFERENTIAL AM Draw 09/19/2024 12:36 AM TOOL DESIGNER APPRENTICE GLUCOSE - POINT OF CARE Routine 09/18/2024 8:32 PM TOOL DESIGNER APPRENTICE GLUCOSE - POINT OF CARE Routine 09/18/2024 5:44 PM TOOL DESIGNER APPRENTICE GLUCOSE - POINT OF CARE Routine 09/18/2024 1:14 PM TOOL DESIGNER APPRENTICE GLUCOSE - POINT OF CARE Routine 09/18/2024 9:08 AM TOOL DESIGNER APPRENTICE BASIC METABOLIC PANEL (CALCIUM TOTAL) AM Draw 09/18/2024 1:04 AM TOOL DESIGNER APPRENTICE MAGNESIUM BLOOD Routine 09/18/2024 1:04 AM TOOL DESIGNER APPRENTICE PHOSPHORUS BLOOD Routine 09/18/2024 1:04 AM TOOL DESIGNER APPRENTICE CBC W/O DIFFERENTIAL AM Draw 09/18/2024 1:04 AM TOOL DESIGNER APPRENTICE GLUCOSE - POINT OF CARE Routine 09/17/2024 8:50 PM TOOL DESIGNER APPRENTICE GLUCOSE - POINT OF CARE Routine 09/17/2024 8:18 PM TOOL DESIGNER APPRENTICE GLUCOSE - POINT OF CARE Routine 09/17/2024 5:24 PM TOOL DESIGNER APPRENTICE GLUCOSE - POINT OF CARE Routine 09/17/2024 12:19 PM TOOL DESIGNER APPRENTICE GLUCOSE - POINT OF CARE Routine 09/17/2024 8:23 AM TOOL DESIGNER APPRENTICE BASIC METABOLIC PANEL (CALCIUM TOTAL) AM Draw 09/17/2024 12:46 AM TOOL DESIGNER APPRENTICE MAGNESIUM BLOOD Routine 09/17/2024 12:46 AM TOOL DESIGNER APPRENTICE PHOSPHORUS BLOOD Routine 09/17/2024 12:4 6 AM TOOL DESIGNER APPRENTICE CBC W/O DIFFERENTIAL AM Draw 09/17/2024 12:46 AM TOOL DESIGNER APPRENTICE GLUCOSE - POINT OF CARE Routine 09/16/2024 8:28 PM TOOL DESIGNER APPRENTICE GLUCOSE - POINT OF CARE Routine 09/16/2024 6:05 PM TOOL DESIGNER APPRENTICE GLUCOSE - POINT OF CARE Routine 09/16/2024 12:13 PM TOOL DESIGNER APPRENTICE GLUCOSE - POINT OF CARE Routine 09/16/2024 8:17 AM TOOL DESIGNER APPRENTICE BASIC METABOLIC PANEL (CALCIUM TOTAL) AM Draw 09/16/2024 12:56 AM TOOL DESIGNER APPRENTICE MAGNESIUM BLOOD Routine 09/16/2024 12:56 AM TOOL DESIGNER APPRENTICE PHOSPHORUS BLOOD Routine 09/16/2024 12:5 6 AM TOOL DESIGNER APPRENTICE CBC W/O DIFFERENTIAL AM Draw 09/16/2024 12:55 AM TOOL DESIGNER APPRENTICE GLUCOSE - POINT OF CARE Routine 09/15/2024 8:01 PM TOOL DESIGNER APPRENTICE GLUCOSE - POINT OF CARE Routine 09/15/2024 5:40 PM TOOL DESIGNER APPRENTICE GLUCOSE - POINT OF CARE Routine 09/15/2024 12:03 PM TOOL DESIGNER APPRENTICE GLUCOSE - POINT OF CARE Routine 09/15/2024 8:43 AM TOOL DESIGNER APPRENTICE BASIC METABOLIC PANEL (CALCIUM TOTAL) AM Draw 09/15/2024 8:35 AM TOOL DESIGNER APPRENTICE MAGNESIUM BLOOD Routine 09/15/2024 8:35 AM TOOL DESIGNER APPRENTICE PHOSPHORUS BLOOD Routine 09/15/2024 8:35 AM TOOL DESIGNER APPRENTICE CBC W/O DIFFERENTIAL AM Draw 09/15/2024 8:14 AM TOOL DESIGNER APPRENTICE GLUCOSE - POINT OF CARE Routine 09/14/2024 11:02 PM TOOL DESIGNER APPRENTICE GLUCOSE - POINT OF CARE Routine 09/14/2024 6:43 PM TOOL DESIGNER APPRENTICE XR FEMUR LEFT 2VW Routine 09/14/2024 5:3 8 PM TOOL DESIGNER APPRENTICE Fall, initial encounter GLUCOSE - POINT OF CARE Routine 09/14/2024 2:07 PM TOOL DESIGNER APPRENTICE CARDIAC EKG ORDER 09/14/2024 1:1 3 PM TOOL DESIGNER APPRENTICE CT HIP LEFT WO CONTRAST STAT 09/14/2024 8:46 AM TOOL DESIGNER APPRENTICE Fall, initial encounter GLUCOSE - POINT OF CARE Routine 09/14/2024 8:21 AM TOOL DESIGNER APPRENTICE GLUCOSE - POINT OF CARE Routine 09/14/2024 4:56 AM TOOL DESIGNER APPRENTICE VITAMIN D 25-HYDROXY Routine 09/14/2024 2:15 AM TOOL DESIGNER APPRENTICE TROPONIN-I HIGH SENSITIVE REFLEX 1HOUR Timed 09/14/2024 2:15 AM TOOL DESIGNER APPRENTICE XR PELVIS W LEFT HIP 2VW STAT 09/14/2024 1:44 AM TOOL DESIGNER APPRENTICE Fall, initial encounter GLUCOSE - POINT OF CARE Routine 09/14/2024 1:38 AM TOOL DESIGNER APPRENTICE TROPONIN-I HIGH SENSITIVE BASELINE + 1HR STAT 09/14/2024 12:23 AM TOOL DESIGNER APPRENTICE GLUCOSE - POINT OF CARE Routine 09/13/2024 9:24 PM TOOL DESIGNER APPRENTICE CT FACIAL BONES WO CONTRAST STAT 09/13/2024 7:15 PM TOOL DESIGNER APPRENTICE Fall, initial encounter Contusion of scalp, initial encounter CT CERVICAL SPINE WO CONTRAST STAT 09/13/2024 7:15 PM TOOL DESIGNER APPRENTICE Fall, initial encounter Contusion of scalp, initial encounter CT HEAD WO CONTRAST STAT 09/13/2024 7 :15 PM TOOL DESIGNER APPRENTICE Fall, initial encounter Contusion of scalp, initial encounter PT-INR [facility] STAT 09/13/2024 5:59 PM TOOL DESIGNER APPRENTICE COMPREHENSIVE METABOLIC PANEL STAT 09/13/2024 5:59 PM TOOL DESIGNER APPRENTICE CBC W AUTO DIFFERENTIAL STAT 09/13/2024 5:59 PM TOOL DESIGNER APPRENTICE HEMOGLOBIN A1C Routine 05/04/2023 4:06 AM CDT from Last 3 Months or Most Recently Relevant to Health Maintenance Results * (ABNORMAL) GLUCOSE - POINT OF CARE (09/19/2024 12:12 PM TOOL DESIGNER APPRENTICE) Only the most recent of26 resultswithin the time period is included. [facility] Glucose WB/POC 328(H) 70 - 99 mg/dL 09/19/2024 12:17 PM TOOL DESIGNER APPRENTICE [facility] Specimen Type Cap Fingerstick 2023 12:17 PM TOOL DESIGNER APPRENTICE [facility] Blood BLOOD SPECIMEN / Unknown 09/19/2024 12:12 PM TOOL DESIGNER APPRENTICE 09/19/2024 12:17 PM TOOL DESIGNER APPRENTICE Serena Marquez MD LAB - POINT OF CARE ORDERABLES Performing Organization Address City/State/[facility] Co de Phone Number [address] [address], [facility] [phone] * (ABNORMAL) CBC W/O DIFFERENTIAL (09/19/2024 12:36 AM TOOL DESIGNER APPRENTICE) Only the most recent of5 resultswithin the time period is included. [facility] WBC 7.0 4.0 - 10.7 x10E9/L 09/19/2024 1:05 AM [facility] RBC Count 3.75(L) 3.90 - 5.20 x10E12/L 09/19/2024 1:05 AM [facility] Hemoglobin 10.9(L) 11.9 - 15.8 g/dL 09/19/2024 1:05 AM [facility] Hematocrit 34.4(L) 34.8 - 46.1 % 09/19/2024 1:05 AM [facility] MCV 91.7 80.0 - 98.0 fL 09/19/2024 1:05 AM [facility] MCH 29.1 26.7 - 33.6 pg 09/19/2024 1:05 AM [facility] MCHC 31.7 31.7 - 36.3 g/dL 09/19/2024 1:05 AM [facility] RDW-CV 17.2(H) 11.3 - 14.8 % 09/19/2024 1:05 AM [facility] Platelet Count 387 150 - 420 x10E9/L 09/19/2024 1:05 AM [facility] MPV 10.5 7.8 - 11.4 fL 09/19/2024 1:05 AM [facility] Blood BLOOD SPECIMEN / Unknown Lab Venipuncture / Unknown 09/19/2024 12:36 AM TOOL DESIGNER APPRENTICE 09/19/2024 12:53 AM [facility] Any Mccoy PA-C LAB - HEMATOLOG Y ORDERABLES [address] [address], [facility] [phone] * (ABNORMAL) BASIC METABOLIC PANEL (CALCIUM TOTAL) (09/19/2024 12:36 AM [facility]) Only the most recent of5 resultswithin the time period is included. BUN 61(H) 7 - 26 mg/dL 09/19/2024 1:18 AM [facility] Creatinine 1.31(H) 0.56 - 0.96 mg/dL 09/19/2024 1:18 AM [facility] Sodium 136 136 - 145 mmol/L 09/19/2024 1:18 AM [facility] Potassium 5.0(H) 3.5 - 4.5 mmol/L 09/19/2024 1:18 AM [facility] Chloride 100 98 - 107 mmol/L 09/19/2024 1:18 AM [facility] CO2 30(H) 22 - 29 mmol/L 09/19/2024 1:18 AM [facility] Glucose 268(H) 70 - 99 mg/dL 09/19/2024 1:18 AM [facility] Calcium 9.2 8.4 - 10.2 mg/dL 09/19/2024 1:18 AM [facility] Anion Gap 6 6 - 16 09/19/2024 1:18 AM [facility] BUN/Creatinine Ratio 47(H) 7 - 23 09/19/2024 1:18 AM [facility] Osmolality Calculated 309(H) 275 - 295 mOsm/kg 09/19/2024 1:18 AM [facility] eGFR by CKD-EPI 42(L) >=90 mL/min/1.7 3 m2 09/19/2024 1:18 AM [facility] Blood BLOOD SPECIMEN / Unknown Lab Venipuncture / Unknown 09/19/2024 12:36 AM TOOL DESIGNER APPRENTICE 09/19/2024 12:53 AM TOOL DESIGNER APPRENTICE Any Deterwhitney PA-C LAB - CHEMISTRY ORDERABLES [address] [address], [facility] [phone] * PHOSPHORUS BLOOD (09/19/2024 12:36 AM TOOL DESIGNER APPRENTICE) Only the most recent of5 resultswithin the time period is included. Phosphorus 3.9 2.9 - 5.1 mg/dL 09/19/2024 1:18 AM [facility] Blood BLOOD SPECIMEN / Unknown Lab Venipuncture / Unknown 09/19/2024 12:36 AM TOOL DESIGNER APPRENTICE 09/19/2024 12:53 AM TOOL DESIGNER APPRENTICE Any Deterding PA-C LAB - CHEMISTRY ORDERABLES [address] [address], [facility] [phone] * MAGNESIUM BLOOD (09/19/2024 12:36 AM TOOL DESIGNER APPRENTICE) Only the most recent of5 resultswithin the time period is included. Magnesium 2.0 1.6 - 2.6 mg/dL 09/19/2024 1:18 AM TOOL DESIGNER APPRENTICE [facility] Blood BLOOD SPECIMEN / Unknown Lab Venipuncture / Unknown 09/19/2024 12:36 AM TOOL DESIGNER APPRENTICE 09/19/2024 12:53 AM TOOL DESIGNER APPRENTICE Any Mccoy PA-C LAB - CHEMISTRY ORDERABLES Performing Organization Address [facility]/State/[facility] Co de Phone Number [facility] [address] [place] [address], [facility] [phone] * XR Femur Left 2Vw (09/14/2024 5:38 PM TOOL DESIGNER APPRENTICE) Anatomical Region Laterality Modality Lower Extremity Digital Radiogra phy 09/14/2024 5:13 PM TOOL DESIGNER APPRENTICE Narrative 09/14/2024 8:44 PM TOOL DESIGNER APPRENTICE PROCEDURE: ??XR FEMUR LEFT 2VW, DATE/TIME OF EXAM: ??09/14/2024 4:46 PM, LOCATION ??[facility] INDICATION: W19.XXXA: Fall, initial encounter COMPARISON: CT left hip and extrarenal pelvis with left hip 09/14/2024. FINDINGS/IMPRESSION: Redemonstration of age indeterminate fracture of the femoral neck/intertrochanteric region. Postsurgical changes of left hip fixation with intramedullary stephie and screw. The alignment appears normal. Atherosclerotic calcifications of the arteries. Report dictated by Ming Fair MD, (Automatic Quilling Machine Operator). I, Armando Obando MD have personally reviewed and interpreted this examination/study. > Interpreting Provider: Armando Obando MD on 09/14/2024 8:44 PM Procedure Note Armando Obando MD - 09/14/2024 PROCEDURE: XR FEMUR LEFT 2VW, DATE/TIME OF EXAM: 09/14/2024 4:46 PM, LOCATION [facility] INDICATION: W19.XXXA: Fall, initial encounter COMPARISON: CT left hip and extrarenal pelvis with left hip 09/14/2024. FINDINGS/IMPRESSION: Redemonstration of age indeterminate fracture of the femoral neck/intertrochanteric region. Postsurgical changes of left hip fixation with intramedullary stephie and screw. The alignment appears normal. Atherosclerotic calcifications of the arteries. Report dictated by Ming Fair MD, (Automatic Quilling Machine Operator). Armando Moore MD have personally reviewed and interpreted this examination/study. > Interpreting Provider: Armando Obando MD on 09/14/2024 8:44 PM Ki Beckford III, MD DIAGNOSTIC IMAG ING ORDERABLES * CARDIAC EKG ORDER (09/14/2024 1:13 PM TOOL DESIGNER APPRENTICE) Narrative 09/14/2024 1:13 PM TOOL DESIGNER APPRENTICE Ordered by an unspecified provider. Scanned Document CARDIAC SERVICES ORD ERABLES * CT Hip Left Wo Contrast (09/14/2024 8:46 AM TOOL DESIGNER APPRENTICE) Anatomical Region Laterality Modality Lower Extremity Computed Tomogra phy 09/14/2024 11:3 4 AM TOOL DESIGNER APPRENTICE Impressions 09/14/2024 12:02 PM TOOL DESIGNER APPRENTICE IMPRESSION: 1.Age-indeterminate comminuted fracture of the femoral neck and mildly displaced fracture of the proximal femoral shaft. Subacute postsurgical changes of left hip fixation with intramedullary stephie and screw. Recommend direct comparison with prior imaging. 2.Likely seroma (or a Tyler-Christie lesion) in the lateral left superior lower extremity measuring up to 4.9 cm. Report dictated by Gia Sargent MD (residential life director). Manisha Moore MD have personally reviewed and interpreted this examination/study. > Interpreting Provider: Manisha Singer MD on 09/14/2024 12:02 PM Narrative 09/14/2024 12:02 PM TOOL DESIGNER APPRENTICE PROCEDURE: ??CT HIP LEFT WO CONTRAST DATE/TIME [...] Report dictated by Gia Sargent MD (residential life director). I, Manisha Singer MD have personally reviewed and interpreted this examination/study. > Interpreting Provider: Manisha Singer MD on 09/14/2024 12:02 PM Any Darius PA-C CT ORDERABLES * (ABNORMAL) TROPONIN-I HIGH SENSITIVE REFLEX 1HOUR (09/14/2024 2:15 AM TOOL DESIGNER APPRENTICE) Pathologist [facility] Troponin I High Sensitive 32(H) <=14 ng/L 09/14/2024 3:38 AM [facility] Delta Troponin I HS 09/14/2024 3:38 AM [facility] Comment:Delta value intentio stanford not calculated. Baseline to 1 hour specimen collection interval exceeded. Blood BLOOD SPECIMEN / Unknown Venipuncture / Unknown 09/14/2024 2:15 AM TOOL DESIGNER APPRENTICE 09/14/2024 2:59 AM TOOL DESIGNER APPRENTICE Lam David MD LAB - CHEMISTRY LAKSHMI GRAF Performing Organization Address City/State/[facility] Co de Phone Number [facility] [address] [place] [phone], [facility] [phone] * VITAMIN D 25-HYDROXY (09/14/2024 2:15 AM TOOL DESIGNER APPRENTICE) Pathologist [facility] Vitamin D, 25 Hydroxy 73.0 30.0 - 80.0 ng/mL 09/14/2024 3:12 PM [facility] Comment: The recommendations for 25-Hydroxy Vitamin D [...] Unknown Venipuncture / Unknown 09/14/2024 2:15 AM TOOL DESIGNER APPRENTICE 09/14/2024 2:59 AM TOOL DESIGNER APPRENTICE Mercedes Boateng PA-C LAB - CHEMIS TRY ORDERABLES Performing Organization Address City/State/[facility] Co de Phone Number [address] [address], [facility] [phone] * XR Pelvis W Left Hip 2Vw (09/14/2024 1:44 AM TOOL DESIGNER APPRENTICE) Anatomical Region Laterality Modality Pelvis Digital Radiogra phy 09/14/2024 2:48 AM TOOL DESIGNER APPRENTICE Narrative 09/14/2024 6:03 AM TOOL DESIGNER APPRENTICE EXAMINATION: XR PELVIS W LEFT HIP 2VW DATE/TIME OF EXAM: ??09/14/2024 1:54 AM, LOCATION ??[facility] HISTORY: W19.XXXA: Fall, initial encounter Fracture [...] Report dictated by Ze Gama MD (residential life director). Armando Moore MD have personally reviewed and interpreted this examination/study. > Interpreting Provider: Armando Obando MD on 09/14/2024 6:03 AM Procedure Note Armando Obando MD - 09/14/2024 EXAMINATION: XR PELVIS W LEFT HIP 2VW DATE/TIME OF EXAM: 09/14/2024 1:54 AM, LOCATION [facility] HISTORY: W19.XXXA: Fall, initial encounter Fracture [...] Report dictated by Ze Gama MD (residential life director). IArmando MD have personally reviewed and interpreted this examination/study. > Interpreting Provider: Armando Obando MD on 09/14/2024 6:03 AM Lam David MD DIAGNOSTIC IMAGING O RDERABLES * (ABNORMAL) TROPONIN-I HIGH SENSITIVE BASELINE + 1HR (09/14/2024 12:23 AM TOOL DESIGNER APPRENTICE) Troponin I High Sensitive 32(H) <=14 ng/L 09/14/2024 1:02 AM TOOL DESIGNER APPRENTICE [facility] Blood BLOOD SPECIMEN / Unknown Venipuncture / Unknown 09/14/2024 12:23 AM TOOL DESIGNER APPRENTICE 09/14/2024 12:30 AM TOOL DESIGNER APPRENTICE Lam David MD LAB - CHEMISTRY LAKSHMI GRAF [address] [address], [facility] [phone] * CT Cervical Spine Wo Contrast (09/13/2024 7:15 PM TOOL DESIGNER APPRENTICE) Anatomical Region Laterality Modality Spine Computed Tomogra phy 09/13/2024 7:09 PM TOOL DESIGNER APPRENTICE Impressions 09/13/2024 7:57 PM TOOL DESIGNER APPRENTICE IMPRESSION: 1.No acute intracranial hemorrhage, midline shift, or significant mass effect. 2.No acute facial bone fractures identified. 3.No evidence of acute fracture in the cervical spine. 4.There is a prominent left thyroid nodule. A nonemergent thyroid ultrasound is recommended for further evaluation. > Dictated by Ming Fair MD (Automatic Quilling Machine Operator) Giles Moore MD have personally reviewed and interpreted this examination/study. > Interpreting Provider: Giles Moya MD on 09/13/2024 7:57 PM Narrative 09/13/2024 7:57 PM TOOL DESIGNER APPRENTICE PROCEDURE: ??CT HEAD WO CONTRAST, CT CERVICAL SPINE WO CONTRAST, CT FACIAL BONES WO CONTRAST, DATE/TIME OF EXAM: ??09/13/2024 7:21 PM, LOCATION ??[facility] INDICATION: W19.XXXA: Fall, initial encounter S00.03XA: Contusion of scalp, initial encounter H53.9: Vision changes EXAMINATION: 1. Computed tomography (CT) of the head without contrast 2. CT of the maxillofacial bones, orbits, and paranasal sinuses without contrast 3. CT of the cervical spine without contrast ADDITIONAL CLINICAL INFORMATION: Ordering Provider Reason For Exam: ??R/O ICH (accession [id number]), r/o frx (accession [id number]), r/o frx (accession [id number]) TECHNIQUE: CT of the head, cervical spine, [...] DATE/TIME OF EXAM: 09/13/2024 7:21 PM, LOCATION [facility] INDICATION: W19.XXXA: Fall, initial encounter S00.03XA: Contusion of scalp, initial encounter H53.9: Vision changes EXAMINATION: 1. Computed tomography (CT) of the head without contrast 2. CT of the maxillofacial bones, orbits, and paranasal sinuses without contrast 3. CT of the cervical spine without contrast ADDITIONAL CLINICAL INFORMATION: Ordering Provider Reason For Exam: R/O ICH (accession [id number]), r/ofrx (accession [id number]), r/o frx (accession [id number]) TECHNIQUE: CT of the head, cervical spine, [...] evaluation. > Dictated by Ming Fair MD (Automatic Quilling Machine Operator) Giles Moore MD have personally reviewed and interpretedthis examination/study. > Interpreting Provider: Giles Moya MD on 09/13/2024 7:57 PM Silvina Galo PA-C CT ORDERABLES * CT Facial Bones Wo Contrast (09/13/2024 7:15 PM TOOL DESIGNER APPRENTICE) Anatomical Region Laterality Modality Head Computed Tomogra phy 09/13/2024 7:09 PM TOOL DESIGNER APPRENTICE Impressions 09/13/2024 7:57 PM TOOL DESIGNER APPRENTICE IMPRESSION: 1.No acute intracranial hemorrhage, midline shift, or significant mass effect. 2.No acute facial bone fractures identified. 3.No evidence of acute fracture in the cervical spine. 4.There is a prominent left thyroid nodule. A nonemergent thyroid ultrasound is recommended for further evaluation. > Dictated by Ming Fair MD (Automatic Quilling Machine Operator) IGiles MD have personally reviewed and interpreted this examination/study. > Interpreting Provider: Giles Moya MD on 09/13/2024 7:57 PM Narrative 09/13/2024 7:57 PM TOOL DESIGNER APPRENTICE PROCEDURE: ??CT HEAD WO CONTRAST, CT CERVICAL SPINE WO CONTRAST, CT FACIAL BONES WO CONTRAST, DATE/TIME OF EXAM: ??09/13/2024 7:21 PM, LOCATION ??[facility] INDICATION: W19.XXXA: Fall, initial encounter S00.03XA: Contusion of scalp, initial encounter H53.9: Vision changes EXAMINATION: 1. Computed tomography (CT) of the head without contrast 2. CT of the maxillofacial bones, orbits, and paranasal sinuses without contrast 3. CT of the cervical spine without contrast ADDITIONAL CLINICAL INFORMATION: Ordering Provider Reason For Exam: ??R/O ICH (accession [id number]), r/o frx (accession [id number]), r/o frx (accession [id number]) TECHNIQUE: CT of the head, cervical spine, [...] DATE/TIME OF EXAM: 09/13/2024 7:21 PM, LOCATION [facility] INDICATION: W19.XXXA: Fall, initial encounter S00.03XA: Contusion of scalp, initial encounter H53.9: Vision changes EXAMINATION: 1. Computed tomography (CT) of the head without contrast 2. CT of the maxillofacial bones, orbits, and paranasal sinuses without contrast 3. CT of the cervical spine without contrast ADDITIONAL CLINICAL INFORMATION: Ordering Provider Reason For Exam: R/O ICH (accession [id number]), r/ofrx (accession [id number]), r/o frx (accession [id number]) TECHNIQUE: CT of the head, cervical spine, [...] evaluation. > Dictated by Ming Fair MD (Automatic Quilling Machine Operator) Giles Moore MD have personally reviewed and interpretedthis examination/study. > Interpreting Provider: Giles Moya MD on 09/13/2024 7:57 PM Silvina Galo PA-C CT ORDERABLES * CT Head Wo Contrast (09/13/2024 7:15 PM TOOL DESIGNER APPRENTICE) Anatomical Region Laterality Modality Head Computed Tomogra phy 09/13/2024 7:09 PM TOOL DESIGNER APPRENTICE Impressions 09/13/2024 7:57 PM TOOL DESIGNER APPRENTICE IMPRESSION: 1.No acute intracranial hemorrhage, midline shift, or significant mass effect. 2.No acute facial bone fractures identified. 3.No evidence of acute fracture in the cervical spine. 4.There is a prominent left thyroid nodule. A nonemergent thyroid ultrasound is recommended for further evaluation. > Dictated by Ming Fair MD (Automatic Quilling Machine Operator) Giles Moore MD have personally reviewed and interpreted this examination/study. > Interpreting Provider: Giles Moya MD on 09/13/2024 7:57 PM Narrative 09/13/2024 7:57 PM TOOL DESIGNER APPRENTICE PROCEDURE: ??CT HEAD WO CONTRAST, CT CERVICAL SPINE WO CONTRAST, CT FACIAL BONES WO CONTRAST, DATE/TIME OF EXAM: ??09/13/2024 7:21 PM, LOCATION ??[facility] INDICATION: W19.XXXA: Fall, initial encounter S00.03XA: Contusion of scalp, initial encounter H53.9: Vision changes EXAMINATION: 1. Computed tomography (CT) of the head without contrast 2. CT of the maxillofacial bones, orbits, and paranasal sinuses without contrast 3. CT of the cervical spine without contrast ADDITIONAL CLINICAL INFORMATION: Ordering Provider Reason For Exam: ??R/O ICH (accession [id number]), r/o frx (accession [id number]), r/o frx (accession [id number]) TECHNIQUE: CT of the head, cervical spine, [...] DATE/TIME OF EXAM: 09/13/2024 7:21 PM, LOCATION [facility] INDICATION: W19.XXXA: Fall, initial encounter S00.03XA: Contusion of scalp, initial encounter H53.9: Vision changes EXAMINATION: 1. Computed tomography (CT) of the head without contrast 2. CT of the maxillofacial bones, orbits, and paranasal sinuses without contrast 3. CT of the cervical spine without contrast ADDITIONAL CLINICAL INFORMATION: Ordering Provider Reason For Exam: R/O ICH (accession [id number]), r/ofrx (accession [id number]), r/o frx (accession [id number]) TECHNIQUE: CT of the head, cervical spine, [...] evaluation. > Dictated by Ming Fair MD (Automatic Quilling Machine Operator) Giles Moore MD have personally reviewed and interpretedthis examination/study. > Interpreting Provider: Giles Moya MD on 09/13/2024 7:57 PM Silvina Galo PA-C CT ORDERABLES * PT-INR [facility] (09/13/2024 5:59 PM TOOL DESIGNER APPRENTICE) PT 12.7 12.1 - 14.8 Seconds 09/13/2024 6:26 PM TOOL DESIGNER APPRENTICE [facility] INR 1.0 See Comment 09/13/2024 6:26 PM TOOL DESIGNER APPRENTICE [facility] Comment:The suggested therap eutic range for standard coumadin (warfarin) therapy is an INR of 2.0-3.0. For high-risk patients (Mechanical Mitral Valve Prosthesis, etc.), the suggested prophylactic therapeutic range is an INR of 2.5-3.5. Blood BLOOD SPECIMEN / Unknown Venipuncture / Unknown 09/13/2024 5:59 PM TOOL DESIGNER APPRENTICE 09/13/2024 6:03 PM TOOL DESIGNER APPRENTICE Silvina Galo PA-C LAB - COAGULATION ORDERABLES [facility] [address] [place] [address], [facility] [phone] * (ABNORMAL) CBC W AUTO DIFFERENTIAL (09/13/2024 5:59 PM [facility]) WBC 8.9 4.0 - 10.7 x10E9/L 09/13/2024 6:09 PM [facility] RBC Count 3.99 3.90 - 5.20 x10E12/L 09/13/2024 6:09 PM [facility] Hemoglobin 11.7(L) 11.9 - 15.8 g/dL 09/13/2024 6:09 PM [facility] Hematocrit 36.5 34.8 - 46.1 % 09/13/2024 6:09 PM [facility] MCV 91.5 80.0 - 98.0 fL 09/13/2024 6:09 PM [facility] MCH 29.3 26.7 - 33.6 pg 09/13/2024 6:09 PM [facility] MCHC 32.1 31.7 - 36.3 g/dL 09/13/2024 6:09 PM [facility] RDW-CV 18.1(H) 11.3 - 14.8 % 09/13/2024 6:09 PM [facility] Platelet Count 388 150 - 420 x10E9/L 09/13/2024 6:09 PM [facility] MPV 10.3 7.8 - 11.4 fL 09/13/2024 6:09 PM [facility] Neutrophil % 67.7 41.0 - 74.0 % 09/13/2024 6:09 PM [facility] Lymphocyte % 19.6 17.0 - 47.0 % 09/13/2024 6:09 PM [facility] Monocyte % 7.7 3.0 - 11.0 % 09/13/2024 6:09 PM [facility] Eosinophil % 3.6 0.0 - 7.0 % 09/13/2024 6:09 PM [facility] Basophil % 0.7 0.0 - 1.6 % 09/13/2024 6:09 PM [facility] Immature Granulocytes % 0.7 0.0 - 1.0 % 09/13/2024 6:09 PM [facility] Neutrophil Absolute 6.00 1.60 - 7.50 x10E9/L 09/13/2024 6:09 PM [facility] Lymphocyte Absolute 1.74 1.00 - 4.40 x10E9/L 09/13/2024 6:09 PM [facility] Monocyte Absolute 0.68 0.15 - 1.00 x10E9/L 09/13/2024 6:09 PM [facility] Eosinophil Absolute 0.32 0.00 - 0.60 x10E9/L 09/13/2024 6:09 PM [facility] Basophil Absolute 0.06 0.00 - 0.13 x10E9/L 09/13/2024 6:09 PM [facility] Blood BLOOD SPECIMEN / Unknown Venipuncture / Unknown 09/13/2024 5:59 PM TOOL DESIGNER APPRENTICE 09/13/2024 6:04 PM TOOL DESIGNER APPRENTICE Silvina Galo PA-C LAB - HEMATOLOGY O RDERABLES Performing Organization Address [facility] Co de Phone Number [address] [address] [phone] * (ABNORMAL) COMPREHENSIVE METABOLIC PANEL (09/13/2024 5:59 PM TOOL DESIGNER APPRENTICE) BUN 36(H) 7 - 26 mg/dL 09/13/2024 6:34 PM [facility] Creatinine 1.39(H) 0.56 - 0.96 mg/dL 09/13/2024 6:34 PM [facility] Sodium 142 136 - 145 mmol/L 09/13/2024 6:34 PM [facility] Potassium 3.9 3.5 - 4.5 mmol/L 09/13/2024 6:34 PM [facility] Chloride 106 98 - 107 mmol/L 09/13/2024 6:34 PM [facility] CO2 24 22 - 29 mmol/L 09/13/2024 6:34 PM [facility] Glucose 156(H) 70 - 99 mg/dL 09/13/2024 6:34 PM [facility] Calcium 9.3 8.4 - 10.2 mg/dL 09/13/2024 6:34 PM [facility] Protein Total 6.6 6.0 - 8.3 g/dL 09/13/2024 6:34 PM [facility] Albumin 3.1(L) 3.4 - 5.0 g/dL 09/13/2024 6:34 PM [facility] Bilirubin Total 0.7 0.2 - 1.2 mg/dL 09/13/2024 6:34 PM [facility] Alkaline Phosphatase 78 40 - 150 U/L 09/13/2024 6:34 PM [facility] ALT 95(H) 5 - 55 U/L 09/13/2024 6:34 PM [facility] AST 35(H) 5 - 34 U/L 09/13/2024 6:34 PM [facility] Anion Gap 12 6 - 16 09/13/2024 6:34 PM [facility] BUN/Creatinine Ratio 26(H) 7 - 23 09/13/2024 6:34 PM [facility] Osmolality Calculated 306(H) 275 - 295 mOsm/kg 09/13/2024 6:34 PM [facility] Albumin/Globulin Ratio 0.9(L) 1.1 - 2.3 09/13/2024 6:34 PM [facility] eGFR by CKD-EPI 39(L) >=90 mL/min/1.7 3 m2 09/13/2024 6:34 PM [facility] Blood BLOOD SPECIMEN / Unknown Venipuncture / Unknown 09/13/2024 5:59 PM TOOL DESIGNER APPRENTICE 09/13/2024 6:04 PM [facility] Silvina Galo PA-C LAB - CHEMISTRY OR DERABLES [facility] [address] [place] [address], [facility] [phone] * (ABNORMAL) HEMOGLOBIN A1C (05/04/2023 4:06 AM CDT) Hemoglobin A1c 7.8(H) <=5.6 % 05/04/2023 2:37 PM T [facility] Estimated Average Glucose 177 mg/dL 05/04/2023 2:37 PM T [facility] Comment: HbA1c Interpretation: Normal : < 5.7% Pre-diabetes: 5.7-6.4% Diabetes: Equal to or greater than 6.5% Test results diagnostic of diabetes should be repeated for confirmation. Treatment target values recommended by ADA and other clinical organizations should be used to evaluate metabolic control in patients. Reference: [place] [employer], Standards of Care in Diabetes [...] Pena MD LAB - CHEMISTRY ORD ERABLES [facility] [address] [place] [address], [facility] [phone] from Last 3 Months or Most Recently Relevant to Health Maintenance Advance Directives * Full Code (Latest Code Status on File) Date Activated Date Inactivated Comments 09/14/2024 3:25 AM 09/19/2024 2:53 PM * Full Code Date Activated Date Inactivated Comments 05/03/2023 5:30 AM 05/05/2023 3:48 PM Care Teams Honing Machine Operator Semiautomatic Relationship Specialty Start Date End Date Neftali Torres MD [address] [place] [address] PCP - General 06/05/16
--- OUTSIDE RECORDS SUMMARY | 2024-10-30 15:17 | XMS_ITS | Patient Health Summary ---
Author Organization [facility] Address [address] [place] [address] Care Team Providers Care Siding Coreboard Inspector Name Role Phone Neftali Torres MD Primary Care Provider [phone] Note from [facility],non-owned Affiliates and Associated Physician Practices is amultiple site organization consisting of ambulatory clinics and hospital sitesin [place], [place], [place] and [place]. This disclosure is being madepursuant to the Care Everywhere program and may not contain all information available regarding this patient. Last updated 18.[facility] Allergies * Codeine(Other) -Low Criticality * Tramadol(Nausea and/or Vomiting) -Low Criticality Medications * Be aware that medications may not be up to date on this document. Alwaysverify current medications with the patient. * DULoxetine (Cymbalta) 30 MG capsule Take 1 (one) capsule by mouth once daily * dapagliflozin propanediol (Farxiga) 10 MG tablet Take 1 (one) tablet by mouth every morning * ALPRAZolam (Xanax) 0.25 MG tablet Take 1 (one) tablet by mouth at bedtime * atorvastatin (Lipitor) 80 MG tablet(Started 05/02/2023) Take 1 (one) tablet by mouth at bedtime 11 refills remaining * insulin degludec (Tresiba FlexTouch) 100 UNIT/ML pen(Started 03/19/2022) at bedtime * furosemide (Lasix) 40 MG tablet(Started 05/05/2023) Take 1 (one) tablet by mouth 2 times daily * acetaminophen (Tylenol) 500 MG tablet(Started 09/19/2024) Take 1 (one) tablet by mouth every 4 hours as needed Maximum allowable Acetaminophen amount = 4 Grams (4000 mg) / 24 hours. * aspirin (Aspirin) 81 MG chew tablet(Started 09/20/2024) Take 1 (one) tablet by mouth once daily * ondansetron, disintegrating, (Zofran ODT) 4 MG tablet(Started 09/19/2024) Take 1 (one) tablet by mouth every 6 hours as needed for Nausea/Vomiting Allow tablet to dissolve on the tongue * metoprolol succinate XL 24hr (Toprol XL) 50 MG tablet(Started 09/19/2024) Take 1 (one) tablet by mouth 2 times daily * polyethylene glycol 3350 (Miralax) 17 g packet(Started 09/20/2024) Take 17 (seventeen) g by mouth once daily * simethicone (Mylicon) 80 MG chew tablet(Started 09/19/2024) Take 1 (one) tablet by mouth 4 times daily as needed for Gas Pain * cyclobenzaprine (Flexeril) 10 MG tablet(Started 09/19/2024) Take 1 (one) tablet by mouth 3 times daily as needed for Muscle Spasms Active Problems Problem Noted Date Diagnosed Date [...] and heating? Not hard at all 09/15/2024 [facility] Occupat ional Health - Occupational Stress [...] place to sleep or slept in a alf (including now)? No 05/03/2023 Housing Stability Vital Sign Answer Sawyer e Recorded In the last 12 months, was t here a time when you were not able to pay the mortgage or rent on time? No 09/15/2024 In the past 12 months, how m any times have you moved where you were living? 0 09/15/2024 At any time in the past 12 m [facility], were you homeless or living in a alf (including now)? No 09/15/2024 Sex and Gender Information Value Date Recorded Sex Assigned at Not on file Gender Identity Not on file Sexual Orientation Not on file Last Filed Vital Signs Vital Sign Reading Time Taken Comments Blood Pressure 154/83 09/19/2024 12:11 PM HOST COORDINATOR Pulse 86 09/19/2024 12:11 PM HOST COORDINATOR Temperature 37 ??C (98.6 ??F) 09/19/2024 12:11 PM HOST COORDINATOR Respiratory Rate 14 09/19/2024 8:30 AM HOST COORDINATOR Oxygen Saturation 94% 09/19/2024 12:11 PM HOST COORDINATOR Inhaled Oxygen Concentration - - Weight 61.7 kg (136 lb) 09/19/2024 4:00 AM HOST COORDINATOR Height 152.4 cm (5') 09/15/2024 1:00 AM HOST COORDINATOR Body Mass Index 26.56 09/15/2024 1:00 AM HOST COORDINATOR Procedures * GLUCOSE - POINT OF CARE(Performed 09/19/2024) * GLUCOSE - POINT OF CARE(Performed 09/19/2024) * BASIC METABOLIC PANEL (CALCIUM TOTAL)(Performed 09/19/2024) * MAGNESIUM BLOOD(Performed 09/19/2024) * PHOSPHORUS BLOOD(Performed 09/19/2024) * CBC W/O DIFFERENTIAL(Performed 09/19/2024) * GLUCOSE - POINT OF CARE(Performed 09/18/2024) * GLUCOSE - POINT OF CARE(Performed 09/18/2024) * GLUCOSE - POINT OF CARE(Performed 09/18/2024) * GLUCOSE - POINT OF CARE(Performed 09/18/2024) * BASIC METABOLIC PANEL (CALCIUM TOTAL)(Performed 09/18/2024) * MAGNESIUM BLOOD(Performed 09/18/2024) * PHOSPHORUS BLOOD(Performed 09/18/2024) * CBC W/O DIFFERENTIAL(Performed 09/18/2024) * GLUCOSE - POINT OF CARE(Performed 09/17/2024) * GLUCOSE - POINT OF CARE(Performed 09/17/2024) * GLUCOSE - POINT OF CARE(Performed 09/17/2024) * GLUCOSE - POINT OF CARE(Performed 09/17/2024) * GLUCOSE - POINT OF CARE(Performed 09/17/2024) * BASIC METABOLIC PANEL (CALCIUM TOTAL)(Performed 09/17/2024) * MAGNESIUM BLOOD(Performed 09/17/2024) * PHOSPHORUS BLOOD(Performed 09/17/2024) * CBC W/O DIFFERENTIAL(Performed 09/17/2024) * GLUCOSE - POINT OF CARE(Performed 09/16/2024) * GLUCOSE - POINT OF CARE(Performed 09/16/2024) * GLUCOSE - POINT OF CARE(Performed 09/16/2024) * GLUCOSE - POINT OF CARE(Performed 09/16/2024) * BASIC METABOLIC PANEL (CALCIUM TOTAL)(Performed 09/16/2024) * MAGNESIUM BLOOD(Performed 09/16/2024) * PHOSPHORUS BLOOD(Performed 09/16/2024) * CBC W/O DIFFERENTIAL(Performed 09/16/2024) * GLUCOSE - POINT OF CARE(Performed 09/15/2024) * GLUCOSE - POINT OF CARE(Performed 09/15/2024) * GLUCOSE - POINT OF CARE(Performed 09/15/2024) * GLUCOSE - POINT OF CARE(Performed 09/15/2024) * BASIC METABOLIC PANEL (CALCIUM TOTAL)(Performed 09/15/2024) * MAGNESIUM BLOOD(Performed 09/15/2024) * PHOSPHORUS BLOOD(Performed 09/15/2024) * CBC W/O DIFFERENTIAL(Performed 09/15/2024) * GLUCOSE - POINT OF CARE(Performed 09/14/2024) * GLUCOSE - POINT OF CARE(Performed 09/14/2024) * XR FEMUR LEFT 2VW(Performed 09/14/2024) Performed for Fall, initial encounter * GLUCOSE - POINT OF CARE(Performed 09/14/2024) * CARDIAC EKG ORDER(Performed 09/14/2024) * CT HIP LEFT WO CONTRAST(Performed 09/14/2024) Performed for Fall, initial encounter * GLUCOSE - POINT OF CARE(Performed 09/14/2024) * GLUCOSE - POINT OF CARE(Performed 09/14/2024) * VITAMIN D 25-HYDROXY(Performed 09/14/2024) * TROPONIN-I HIGH SENSITIVE REFLEX 1HOUR(Performed 09/14/2024) * XR PELVIS W LEFT HIP 2VW(Performed 09/14/2024) Performed for Fall, initial encounter * GLUCOSE - POINT OF CARE(Performed 09/14/2024) * TROPONIN-I HIGH SENSITIVE BASELINE + 1HR(Performed 09/14/2024) * GLUCOSE - POINT OF CARE(Performed 09/13/2024) * CT FACIAL BONES WO CONTRAST(Performed 09/13/2024) Performed for Fall, initial encounter, Contusion of scalp, initial encounter * CT CERVICAL SPINE WO CONTRAST(Performed 09/13/2024) Performed for Fall, initial encounter, Contusion of scalp, initial encounter * CT HEAD WO CONTRAST(Performed 09/13/2024) Performed for Fall, initial encounter, Contusion of scalp, initial encounter * PT-INR [facility](Performed 09/13/2024) * COMPREHENSIVE METABOLIC PANEL(Performed 09/13/2024) * CBC W AUTO DIFFERENTIAL(Performed 09/13/2024) * CARDIAC EKG ORDER(Performed 05/06/2023) * GLUCOSE - POINT OF CARE(Performed 05/05/2023) * GLUCOSE - POINT OF CARE(Performed 05/05/2023) * MAGNESIUM BLOOD(Performed 05/05/2023) * RENAL FUNCTION PANEL(Performed 05/05/2023) * CBC W AUTO DIFFERENTIAL(Performed 05/05/2023) * PTT [facility]H(Performed 05/05/2023) * PTT [facility](Performed 05/05/2023) * TROPONIN-I HIGH SENSITIVE(Performed 05/05/2023) Performed for Acute pulmonary edema (HCC) * TROPONIN-I HIGH SENSITIVE(Performed 05/04/2023) Performed for Acute pulmonary edema (HCC) * GLUCOSE - POINT OF CARE(Performed 05/04/2023) * GLUCOSE - POINT OF CARE(Performed 05/04/2023) * TROPONIN-I HIGH SENSITIVE(Performed 05/04/2023) Performed for Acute pulmonary edema (HCC) * PTT [facility]H(Performed 05/04/2023) * TROPONIN-I HIGH SENSITIVE(Performed 05/04/2023) Performed for Acute pulmonary edema (HCC) * GLUCOSE - POINT OF CARE(Performed 05/04/2023) * TROPONIN-I HIGH SENSITIVE(Performed 05/04/2023) Performed for Acute pulmonary edema (HCC) * GLUCOSE - POINT OF CARE(Performed 05/04/2023) * TROPONIN-I HIGH SENSITIVE(Performed 05/04/2023) Performed for Acute pulmonary edema (HCC) * PTT [facility](Performed 05/04/2023) * GLUCOSE - POINT OF CARE(Performed 05/04/2023) * T4 FREE(Performed 05/04/2023) * HEMOGLOBIN A1C(Performed 05/04/2023) * TSH REFLEX FREE T4(Performed 05/04/2023) * PHOSPHORUS BLOOD(Performed 05/04/2023) * MAGNESIUM BLOOD(Performed 05/04/2023) * COMPREHENSIVE METABOLIC PANEL(Performed 05/04/2023) * CBC W AUTO DIFFERENTIAL(Performed 05/04/2023) * B-TYPE NATRIURETIC PEPTIDE(Performed 05/04/2023) * TROPONIN-I HIGH SENSITIVE(Performed 05/04/2023) Performed for Acute pulmonary edema (HCC) * BLOOD TYPE VERIFICATION(Performed 05/03/2023) * PTT [facility](Performed 05/03/2023) * TROPONIN-I HIGH SENSITIVE(Performed 05/03/2023) Performed for Acute pulmonary edema (HCC) * GLUCOSE - POINT OF CARE(Performed 05/03/2023) * TROPONIN-I HIGH SENSITIVE(Performed 05/03/2023) Performed for Acute pulmonary edema (HCC) * GLUCOSE - POINT OF CARE(Performed 05/03/2023) * GLUCOSE - POINT OF CARE(Performed 05/03/2023) * TROPONIN-I HIGH SENSITIVE(Performed 05/03/2023) * GLUCOSE - POINT OF CARE(Performed 05/03/2023) * TROPONIN-I HIGH SENSITIVE(Performed 05/03/2023) * B-TYPE NATRIURETIC PEPTIDE(Performed 05/03/2023) * CT ANGIO AORTA FOR DISSECTION(Performed 05/03/2023) Performed for SOB (shortness of breath) * CT ANGIO NECK(Performed 05/03/2023) Performed for SOB (shortness of breath) * TROPONIN-I HIGH SENSITIVE REFLEX 1HOUR(Performed 05/03/2023) * XR CHEST 1VW PORTABLE(Performed 05/03/2023) Performed for SOB (shortness of breath) * EKG 12-LEAD(Performed 05/03/2023) Performed for SOB (shortness of breath) * TROPONIN-I HIGH SENSITIVE BASELINE + 1HR(Performed 05/03/2023) * MAGNESIUM BLOOD(Performed 05/03/2023) * LIPASE BLOOD(Performed 05/03/2023) * TYPE + SCREEN PANEL(Performed 05/03/2023) * PT-INR [facility](Performed 05/03/2023) * COMPREHENSIVE METABOLIC PANEL(Performed 05/03/2023) * CBC W AUTO DIFFERENTIAL(Performed 05/03/2023) Results * (ABNORMAL) GLUCOSE - POINT OF CARE (09/19/2024 12:12 PM HOST COORDINATOR) Only the most recent of37 resultswithin the time period is included. Glucose WB/POC 328(H) 70 - 99 mg/dL 09/19/2024 12:17 PM [facility] Specimen Type Cap Fingerstick 2023 12:17 PM [facility] Blood BLOOD SPECIMEN / Unknown 09/19/2024 12:12 PM HOST COORDINATOR 09/19/2024 12:17 PM HOST COORDINATOR Serena Marquez MD LAB - POINT OF CARE ORDERABLES Performing Organization Address City/State/[facility] Co de Phone Number [facility] [address] [place] [address], [facility] [phone] * (ABNORMAL) CBC W/O DIFFERENTIAL (09/19/2024 12:36 AM HOST COORDINATOR) Only the most recent of5 resultswithin the time period is included. WBC 7.0 4.0 - 10.7 x10E9/L 09/19/2024 1:05 AM [facility] RBC Count 3.75(L) 3.90 - 5.20 x10E12/L 09/19/2024 1:05 AM [facility] Hemoglobin 10.9(L) 11.9 - 15.8 g/dL 09/19/2024 1:05 AM [facility] Hematocrit 34.4(L) 34.8 - 46.1 % 09/19/2024 1:05 AM [facility] MCV 91.7 80.0 - 98.0 fL 09/19/2024 1:05 AM [facility] MCH 29.1 26.7 - 33.6 pg 09/19/2024 1:05 AM [facility] MCHC 31.7 31.7 - 36.3 g/dL 09/19/2024 1:05 AM [facility] RDW-CV 17.2(H) 11.3 - 14.8 % 09/19/2024 1:05 AM [facility] Platelet Count 387 150 - 420 x10E9/L 09/19/2024 1:05 AM [facility] MPV 10.5 7.8 - 11.4 fL 09/19/2024 1:05 AM [facility] Blood BLOOD SPECIMEN / Unknown Lab Venipuncture / Unknown 09/19/2024 12:36 AM HOST COORDINATOR 09/19/2024 12:53 AM HOST COORDINATOR Any Mccoy PA-C LAB - HEMATOLOG Y ORDERABLES [facility] [address] [place] [address], [facility] [phone] * (ABNORMAL) BASIC METABOLIC PANEL (CALCIUM TOTAL) (09/19/2024 12:36 AM HOST COORDINATOR) Only the most recent of5 resultswithin the time period is included. BUN 61(H) 7 - 26 mg/dL 09/19/2024 1:18 AM [facility] Creatinine 1.31(H) 0.56 - 0.96 mg/dL 09/19/2024 1:18 AM [facility] Sodium 136 136 - 145 mmol/L 09/19/2024 1:18 AM [facility] Potassium 5.0(H) 3.5 - 4.5 mmol/L 09/19/2024 1:18 AM [facility] Chloride 100 98 - 107 mmol/L 09/19/2024 1:18 AM [facility] CO2 30(H) 22 - 29 mmol/L 09/19/2024 1:18 AM [facility] Glucose 268(H) 70 - 99 mg/dL 09/19/2024 1:18 AM [facility] Calcium 9.2 8.4 - 10.2 mg/dL 09/19/2024 1:18 AM [facility] Anion Gap 6 6 - 16 09/19/2024 1:18 AM [facility] BUN/Creatinine Ratio 47(H) 7 - 23 09/19/2024 1:18 AM [facility] Osmolality Calculated 309(H) 275 - 295 mOsm/kg 09/19/2024 1:18 AM [facility] eGFR by CKD-EPI 42(L) >=90 mL/min/1.7 3 m2 09/19/2024 1:18 AM [facility] Blood BLOOD SPECIMEN / Unknown Lab Venipuncture / Unknown 09/19/2024 12:36 AM HOST COORDINATOR 09/19/2024 12:53 AM HOST COORDINATOR Any Deterding PA-C LAB - CHEMISTRY ORDERABLES Performing Organization Address City/[facility]/ZIP Co de Phone Number [address] [address], [facility] [phone] * PHOSPHORUS BLOOD (09/19/2024 12:36 AM HOST COORDINATOR) Only the most recent of6 resultswithin the time period is included. Phosphorus 3.9 2.9 - 5.1 mg/dL 09/19/2024 1:18 AM HOST COORDINATOR [facility] Blood BLOOD SPECIMEN / Unknown Lab Venipuncture / Unknown 09/19/2024 12:36 AM HOST COORDINATOR 09/19/2024 12:53 AM HOST COORDINATOR Any Deterding PA-C LAB - CHEMISTRY ORDERABLES Performing Organization Address [facility] Co de Phone Number [address] [address], [facility] [phone] * MAGNESIUM BLOOD (09/19/2024 12:36 AM HOST COORDINATOR) Only the most recent of8 resultswithin the time period is included. Magnesium 2.0 1.6 - 2.6 mg/dL 09/19/2024 1:18 AM HOST COORDINATOR [facility] Blood BLOOD SPECIMEN / Unknown Lab Venipuncture / Unknown 09/19/2024 12:36 AM HOST COORDINATOR 09/19/2024 12:53 AM HOST COORDINATOR Any Deterding PA-C LAB - CHEMISTRY ORDERABLES Performing Organization Address City/[facility]/ZIP Co de Phone Number [address] [address], [facility] [phone] * XR Femur Left 2Vw (09/14/2024 5:38 PM HOST COORDINATOR) Anatomical Region Laterality Modality Lower Extremity Digital Radiogra phy 09/14/2024 5:13 PM HOST COORDINATOR Narrative 09/14/2024 8:44 PM HOST COORDINATOR PROCEDURE: ??XR FEMUR LEFT 2VW, DATE/TIME OF EXAM: ??09/14/2024 4:46 PM, LOCATION ??[facility] INDICATION: W19.XXXA: Fall, initial encounter COMPARISON: CT left hip and extrarenal pelvis with left hip 09/14/2024. FINDINGS/IMPRESSION: Redemonstration of age indeterminate fracture of the femoral neck/intertrochanteric region. Postsurgical changes of left hip fixation with intramedullary stephie and screw. The alignment appears normal. Atherosclerotic calcifications of the arteries. Report dictated by Ming Fair MD, (Gut Snatcher). Armando Moore MD have personally reviewed and interpreted this examination/study. > Interpreting Provider: Armando Obando MD on 09/14/2024 8:44 PM Procedure Note Armando Obando MD - 09/14/2024 PROCEDURE: XR FEMUR LEFT 2VW, DATE/TIME OF EXAM: 09/14/2024 4:46 PM, LOCATION [facility] INDICATION: W19.XXXA: Fall, initial encounter COMPARISON: CT left hip and extrarenal pelvis with left hip 09/14/2024. FINDINGS/IMPRESSION: Redemonstration of age indeterminate fracture of the femoral neck/intertrochanteric region. Postsurgical changes of left hip fixation with intramedullary stephie and screw. The alignment appears normal. Atherosclerotic calcifications of the arteries. Report dictated by Ming Fair MD, (Gut Snatcher). Armando Moore MD have personally reviewed and interpreted this examination/study. > Interpreting Provider: Armando Obando MD on 09/14/2024 8:44 PM Ki Beckford III, MD DIAGNOSTIC IMAG ING ORDERABLES * CARDIAC EKG ORDER (09/14/2024 1:13 PM HOST COORDINATOR) Only the most recent of2 resultswithin the time period is included. Narrative 09/14/2024 1:13 PM HOST COORDINATOR Ordered by an unspecified provider. Scanned Document CARDIAC SERVICES ORD ERABLES * CT Hip Left Wo Contrast (09/14/2024 8:46 AM HOST COORDINATOR) Anatomical Region Laterality Modality Lower Extremity Computed Tomogra phy 09/14/2024 11:3 4 AM HOST COORDINATOR Impressions 09/14/2024 12:02 PM HOST COORDINATOR IMPRESSION: 1.Age-indeterminate comminuted fracture of the femoral neck and mildly displaced fracture of the proximal femoral shaft. Subacute postsurgical changes of left hip fixation with intramedullary stephie and screw. Recommend direct comparison with prior imaging. 2.Likely seroma (or a Tyler-Christie lesion) in the lateral left superior lower extremity measuring up to 4.9 cm. Report dictated by Gia Sargent MD (radiology physician). I, Manisha Singer MD have personally reviewed and interpreted this examination/study. > Interpreting Provider: Manisha Singer MD on 09/14/2024 12:02 PM Narrative 09/14/2024 12:02 PM HOST COORDINATOR PROCEDURE: ??CT HIP LEFT WO CONTRAST DATE/TIME [...] cm. Report dictated by Gia Sargent MD (radiology physician). I, Manisha Singer MD have personally reviewed and interpreted this examination/study. > Interpreting Provider: Manisha Singer MD on 09/14/2024 12:02 PM Any Mccoy PA-C CT ORDERABLES * (ABNORMAL) TROPONIN-I HIGH SENSITIVE REFLEX 1HOUR (09/14/2024 2:15 AM HOST COORDINATOR) Only the most recent of2 resultswithin the time period is included. Troponin I High Sensitive 32(H) <=14 ng/L 09/14/2024 3:[address] [facility] Delta Troponin I HS 09/14/2024 3:[address] [facility] Comment:Delta value intentio stanford not calculated. Baseline to 1 hour specimen collection interval exceeded. Blood BLOOD SPECIMEN / Unknown Venipuncture / Unknown 09/14/2024 2:15 AM HOST COORDINATOR 09/14/2024 2:59 AM HOST COORDINATOR Lam David MD LAB - CHEMISTRY LAKSHMI GRAF Performing Organization Address City/[facility]/ZIP Co de Phone Number [facility] [address] [place] [address], [place] [phone] * VITAMIN D 25-HYDROXY (09/14/2024 2:15 AM HOST COORDINATOR) Pathologist [facility] Vitamin D, 25 Hydroxy 73.0 30.0 - 80.0 ng/mL 09/14/2024 3:12 PM HOST COORDINATOR [facility] Comment: The recommendations for 25-Hydroxy Vitamin [...] Unknown Venipuncture / Unknown 09/14/2024 2:15 AM HOST COORDINATOR 09/14/2024 2:59 AM HOST COORDINATOR Mercedes Boateng PA-C LAB - CHEMIS TRY ORDERABLES Performing Organization Address City/[facility]/ZIP Co de Phone Number [facility] [address] [place] [address], [place] [phone] * XR Pelvis W Left Hip 2Vw (09/14/2024 1:44 AM HOST COORDINATOR) Anatomical Region Laterality Modality Pelvis Digital Radiogra phy 09/14/2024 2:48 AM HOST COORDINATOR Narrative 09/14/2024 6:03 AM HOST COORDINATOR EXAMINATION: XR PELVIS W LEFT HIP 2VW DATE/TIME OF EXAM: ??09/14/2024 1:54 AM, LOCATION ??[facility] HISTORY: W19.XXXA: Fall, initial encounter Fracture COMPARISON: [...] hip. Report dictated by Ze Gama MD (radiology physician). IArmando MD have personally reviewed and interpreted this examination/study. > Interpreting Provider: Armando Obando MD on 09/14/2024 6:03 AM Procedure Note Armando Obando MD - 09/14/2024 EXAMINATION: XR PELVIS W LEFT HIP 2VW DATE/TIME OF EXAM: 09/14/2024 1:54 AM, LOCATION [facility] HISTORY: W19.XXXA: Fall, initial encounter Fracture COMPARISON: [...] hip. Report dictated by Ze Gama MD (radiology physician). IArmando MD have personally reviewed and interpreted this examination/study. > Interpreting Provider: Armando Obando MD on 09/14/2024 6:03 AM Lam David MD DIAGNOSTIC IMAGING O RDERABLES * (ABNORMAL) TROPONIN-I HIGH SENSITIVE BASELINE + 1HR (09/14/2024 12:23 AM HOST COORDINATOR) Only the most recent of2 resultswithin the time period is included. Troponin I High Sensitive 32(H) <=14 ng/L 09/14/2024 1:[address] [facility] Blood BLOOD SPECIMEN / Unknown Venipuncture / Unknown 09/14/2024 12:23 AM HOST COORDINATOR 09/14/2024 12:30 AM HOST COORDINATOR Lam David MD [facility] Performing Organization Address City/State/[facility] Co de Phone Number [address] [address], [facility] [phone] * CT Cervical Spine Wo Contrast (09/13/2024 7:15 PM HOST COORDINATOR) Anatomical Region Laterality Modality Spine Computed Tomogra phy 09/13/2024 7:09 PM HOST COORDINATOR Impressions 09/13/2024 7:57 PM HOST COORDINATOR IMPRESSION: 1.No acute intracranial hemorrhage, midline shift, or significant mass effect. 2.No acute facial bone fractures identified. 3.No evidence of acute fracture in the cervical spine. 4.There is a prominent left thyroid nodule. A nonemergent thyroid ultrasound is recommended for further evaluation. > Dictated by Ming Fair MD (Gut Snatcher) Giles Moore MD have personally reviewed and interpreted this examination/study. > Interpreting Provider: Giles Moya MD on 09/13/2024 7:57 PM Narrative 09/13/2024 7:57 PM HOST COORDINATOR PROCEDURE: ??CT HEAD WO CONTRAST, CT CERVICAL SPINE WO CONTRAST, CT FACIAL BONES WO CONTRAST, DATE/TIME OF EXAM: ??09/13/2024 7:21 PM, LOCATION ??[facility] INDICATION: W19.XXXA: Fall, initial encounter S00.03XA: Contusion of scalp, initial encounter H53.9: Vision changes EXAMINATION: 1. Computed tomography (CT) of the head without contrast 2. CT of the maxillofacial bones, orbits, and paranasal sinuses without contrast 3. CT of the cervical spine without contrast ADDITIONAL CLINICAL INFORMATION: Ordering Provider Reason For Exam: ??R/O ICH (accession [id number]), r/o frx (accession [id number]), r/o frx (accession [id number]) TECHNIQUE: CT of the head, cervical spine, [...] DATE/TIME OF EXAM: 09/13/2024 7:21 PM, LOCATION [facility] INDICATION: W19.XXXA: Fall, initial encounter S00.03XA: Contusion of scalp, initial encounter H53.9: Vision changes EXAMINATION: 1. Computed tomography (CT) of the head without contrast 2. CT of the maxillofacial bones, orbits, and paranasal sinuses without contrast 3. CT of the cervical spine without contrast ADDITIONAL CLINICAL INFORMATION: Ordering Provider Reason For Exam: R/O ICH (accession [id number]), r/ofrx (accession [id number]), r/o frx (accession [id number]) TECHNIQUE: CT of the head, cervical spine, [...] evaluation. > Dictated by Ming Fair MD (Gut Snatcher) IGiles MD have personally reviewed and interpretedthis examination/study. > Interpreting Provider: Giles Moya MD on 09/13/2024 7:57 PM Silvina Galo PA-C CT ORDERABLES * CT Facial Bones Wo Contrast (09/13/2024 7:15 PM HOST COORDINATOR) Anatomical Region Laterality Modality Head Computed Tomogra phy 09/13/2024 7:09 PM HOST COORDINATOR Impressions 09/13/2024 7:57 PM HOST COORDINATOR IMPRESSION: 1.No acute intracranial hemorrhage, midline shift, or significant mass effect. 2.No acute facial bone fractures identified. 3.No evidence of acute fracture in the cervical spine. 4.There is a prominent left thyroid nodule. A nonemergent thyroid ultrasound is recommended for further evaluation. > Dictated by Ming Fair MD (Gut Snatcher) I, Giles Moya MD have personally reviewed and interpreted this examination/study. > Interpreting Provider: Giles Moya MD on 09/13/2024 7:57 PM Narrative 09/13/2024 7:57 PM HOST COORDINATOR PROCEDURE: ??CT HEAD WO CONTRAST, CT CERVICAL SPINE WO CONTRAST, CT FACIAL BONES WO CONTRAST, DATE/TIME OF EXAM: ??09/13/2024 7:21 PM, LOCATION ??[facility] INDICATION: W19.XXXA: Fall, initial encounter S00.03XA: Contusion of scalp, initial encounter H53.9: Vision changes EXAMINATION: 1. Computed tomography (CT) of the head without contrast 2. CT of the maxillofacial bones, orbits, and paranasal sinuses without contrast 3. CT of the cervical spine without contrast ADDITIONAL CLINICAL INFORMATION: Ordering Provider Reason For Exam: ??R/O ICH (accession [id number]), r/o frx (accession [id number]), r/o frx (accession [id number]) TECHNIQUE: CT of the head, cervical spine, [...] DATE/TIME OF EXAM: 09/13/2024 7:21 PM, LOCATION [facility] INDICATION: W19.XXXA: Fall, initial encounter S00.03XA: Contusion of scalp, initial encounter H53.9: Vision changes EXAMINATION: 1. Computed tomography (CT) of the head without contrast 2. CT of the maxillofacial bones, orbits, and paranasal sinuses without contrast 3. CT of the cervical spine without contrast ADDITIONAL CLINICAL INFORMATION: Ordering Provider Reason For Exam: R/O ICH (accession [id number]), r/ofrx (accession [id number]), r/o frx (accession [id number]) TECHNIQUE: CT of the head, cervical spine, [...] evaluation. > Dictated by Ming Fair MD (Gut Snatcher) Giles Moore MD have personally reviewed and interpretedthis examination/study. > Interpreting Provider: Giles Moya MD on 09/13/2024 7:57 PM Silvina Galo PA-C CT ORDERABLES * CT Head Wo Contrast (09/13/2024 7:15 PM HOST COORDINATOR) Anatomical Region Laterality Modality Head Computed Tomogra phy 09/13/2024 7:09 PM HOST COORDINATOR Impressions 09/13/2024 7:57 PM HOST COORDINATOR IMPRESSION: 1.No acute intracranial hemorrhage, midline shift, or significant mass effect. 2.No acute facial bone fractures identified. 3.No evidence of acute fracture in the cervical spine. 4.There is a prominent left thyroid nodule. A nonemergent thyroid ultrasound is recommended for further evaluation. > Dictated by Ming Fair MD (Gut Snatcher) IGiles MD have personally reviewed and interpreted this examination/study. > Interpreting Provider: Giles Moya MD on 09/13/2024 7:57 PM Narrative 09/13/2024 7:57 PM HOST COORDINATOR PROCEDURE: ??CT HEAD WO CONTRAST, CT CERVICAL SPINE WO CONTRAST, CT FACIAL BONES WO CONTRAST, DATE/TIME OF EXAM: ??09/13/2024 7:21 PM, LOCATION ??[facility] INDICATION: W19.XXXA: Fall, initial encounter S00.03XA: Contusion of scalp, initial encounter H53.9: Vision changes EXAMINATION: 1. Computed tomography (CT) of the head without contrast 2. CT of the maxillofacial bones, orbits, and paranasal sinuses without contrast 3. CT of the cervical spine without contrast ADDITIONAL CLINICAL INFORMATION: Ordering Provider Reason For Exam: ??R/O ICH (accession [id number]), r/o frx (accession [id number]), r/o frx (accession [id number]) TECHNIQUE: CT of the head, cervical spine, [...] DATE/TIME OF EXAM: 09/13/2024 7:21 PM, LOCATION [facility] INDICATION: W19.XXXA: Fall, initial encounter S00.03XA: Contusion of scalp, initial encounter H53.9: Vision changes EXAMINATION: 1. Computed tomography (CT) of the head without contrast 2. CT of the maxillofacial bones, orbits, and paranasal sinuses without contrast 3. CT of the cervical spine without contrast ADDITIONAL CLINICAL INFORMATION: Ordering Provider Reason For Exam: R/O ICH (accession [id number]), r/ofrx (accession [id number]), r/o frx (accession [id number]) TECHNIQUE: CT of the head, cervical spine, [...] evaluation. > Dictated by Ming Fair MD (Gut Snatcher) I, Giles Moya MD have personally reviewed and interpretedthis examination/study. > Interpreting Provider: Giles Moya MD on 09/13/2024 7:57 PM Silvina Galo PA-C CT ORDERABLES * PT-INR [facility] (09/13/2024 5:59 PM HOST COORDINATOR) Only the most recent of2 resultswithin the time period is included. PT 12.7 12.1 - 14.8 Seconds 09/13/2024 6:[address] [facility] INR 1.0 See Comment 09/13/2024 6:26 PM [facility] Comment:The suggested therap eutic range for standard coumadin (warfarin) therapy is an INR of 2.0-3.0. For high-risk patients (Mechanical Mitral Valve Prosthesis, etc.), the suggested prophylactic therapeutic range is an INR of 2.5-3.5. Blood BLOOD SPECIMEN / Unknown Venipuncture / Unknown 09/13/2024 5:59 PM HOST COORDINATOR 09/13/2024 6:03 PM HOST COORDINATOR Silvina Galo PA-C LAB - COAGULATION ORDERABLES [address] [address], [facility] [phone] * (ABNORMAL) CBC W AUTO DIFFERENTIAL (09/13/2024 5:59 PM HOST COORDINATOR) Only the most recent of4 resultswithin the time period is included. WBC 8.9 4.0 - 10.7 x10E9/L 09/13/2024 6:09 PM HOST COORDINATOR [facility] RBC Count 3.99 3.90 - 5.20 x10E12/L 09/13/2024 6:09 PM [facility] Hemoglobin 11.7(L) 11.9 - 15.8 g/dL 09/13/2024 6:09 PM HOST COORDINATOR [facility] Hematocrit 36.5 34.8 - 46.1 % 09/13/2024 6:09 PM [facility] MCV 91.5 80.0 - 98.0 fL 09/13/2024 6:09 PM [facility] MCH 29.3 26.7 - 33.6 pg 09/13/2024 6:09 PM [facility] MCHC 32.1 31.7 - 36.3 g/dL 09/13/2024 6:09 PM [facility] RDW-CV 18.1(H) 11.3 - 14.8 % 09/13/2024 6:09 PM [facility] Platelet Count 388 150 - 420 x10E9/L 09/13/2024 6:09 PM [facility] MPV 10.3 7.8 - 11.4 fL 09/13/2024 6:09 PM [facility] Neutrophil % 67.7 41.0 - 74.0 % 09/13/2024 6:09 PM [facility] Lymphocyte % 19.6 17.0 - 47.0 % 09/13/2024 6:09 PM [facility] Monocyte % 7.7 3.0 - 11.0 % 09/13/2024 6:09 PM [facility] Eosinophil % 3.6 0.0 - 7.0 % 09/13/2024 6:09 PM [facility] Basophil % 0.7 0.0 - 1.6 % 09/13/2024 6:09 PM [facility] Immature Granulocytes % 0.7 0.0 - 1.0 % 09/13/2024 6:09 PM [facility] Neutrophil Absolute 6.00 1.60 - 7.50 x10E9/L 09/13/2024 6:09 PM [facility] Lymphocyte Absolute 1.74 1.00 - 4.40 x10E9/L 09/13/2024 6:09 PM [facility] Monocyte Absolute 0.68 0.15 - 1.00 x10E9/L 09/13/2024 6:09 PM [facility] Eosinophil Absolute 0.32 0.00 - 0.60 x10E9/L 09/13/2024 6:09 PM [facility] Basophil Absolute 0.06 0.00 - 0.13 x10E9/L 09/13/2024 6:09 PM [facility] Blood BLOOD SPECIMEN / Unknown Venipuncture / Unknown 09/13/2024 5:59 PM HOST COORDINATOR 09/13/2024 6:04 PM HOST COORDINATOR Silvina Galo PA-C LAB - HEMATOLOGY O RDERABLES [facility] [address] [place] [address], [facility] [phone] * (ABNORMAL) COMPREHENSIVE METABOLIC PANEL (09/13/2024 5:59 PM HOST COORDINATOR) Only the most recent of3 resultswithin the time period is included. BUN 36(H) 7 - 26 mg/dL 09/13/2024 6:34 PM [facility] Creatinine 1.39(H) 0.56 - 0.96 mg/dL 09/13/2024 6:34 PM [facility] Sodium 142 136 - 145 mmol/L 09/13/2024 6:34 PM [facility] Potassium 3.9 3.5 - 4.5 mmol/L 09/13/2024 6:34 PM [facility] Chloride 106 98 - 107 mmol/L 09/13/2024 6:34 PM [facility] CO2 24 22 - 29 mmol/L 09/13/2024 6:34 PM [facility] Glucose 156(H) 70 - 99 mg/dL 09/13/2024 6:34 PM [facility] Calcium 9.3 8.4 - 10.2 mg/dL 09/13/2024 6:34 PM [facility] Protein Total 6.6 6.0 - 8.3 g/dL 09/13/2024 6:34 PM [facility] Albumin 3.1(L) 3.4 - 5.0 g/dL 09/13/2024 6:34 PM [facility] Bilirubin Total 0.7 0.2 - 1.2 mg/dL 09/13/2024 6:34 PM [facility] Alkaline Phosphatase 78 40 - 150 U/L 09/13/2024 6:34 PM HOST COORDINATOR [facility] ALT 95(H) 5 - 55 U/L 09/13/2024 6:34 PM [facility] AST 35(H) 5 - 34 U/L 09/13/2024 6:34 PM [facility] Anion Gap 12 6 - 16 09/13/2024 6:34 PM [facility] BUN/Creatinine Ratio 26(H) 7 - 23 09/13/2024 6:34 PM [facility] Osmolality Calculated 306(H) 275 - 295 mOsm/kg 09/13/2024 6:34 PM [facility] Albumin/Globulin Ratio 0.9(L) 1.1 - 2.3 09/13/2024 6:34 PM [facility] eGFR by CKD-EPI 39(L) >=90 mL/min/1.7 3 m2 09/13/2024 6:34 PM [facility] Blood BLOOD SPECIMEN / Unknown Venipuncture / Unknown 09/13/2024 5:59 PM HOST COORDINATOR 09/13/2024 6:04 PM HOST COORDINATOR Silvina Galo PA-C LAB - CHEMISTRY OR DERABLES Performing Organization Address City/[facility]/ZIP Co de Phone Number [address] [address], [place] [phone] * (ABNORMAL) PTT [facility] (05/05/2023 7:38 AM CDT) Only the most recent of5 resultswithin the time period is included. APTT 154.7(HH) 23.0 - 38.4 Seconds 05/05/2023 9:07 AM CDT [facility] Comment:Suggested therapeuti c range for full dose I.V. unfractionated heparin therapy for venous thromboembolism is 71 to 109 seconds. Blood BLOOD SPECIMEN / Unknown Lab Venipuncture / Unknown 05/05/2023 7:38 AM CDT 05/05/2023 8:21 AM CDT Dakotah Sheffield MD LAB - COAGULATION OR DERABLES Performing Organization Address City/[facility]/ZIP Co de Phone Number [address] [address] [phone] * (ABNORMAL) RENAL FUNCTION PANEL (05/05/2023 7:38 AM CDT) BUN 31(H) 7 - 26 mg/dL 05/05/2023 8:52 AM [facility] Creatinine 1.63(H) 0.56 - 0.96 mg/dL 05/05/2023 8:52 AM [facility] Sodium 139 136 - 145 mmol/L 05/05/2023 8:52 AM [facility] Potassium 4.0 3.5 - 4.5 mmol/L 05/05/2023 8:52 AM [facility] Chloride 102 98 - 107 mmol/L 05/05/2023 8:52 AM [facility] CO2 28 22 - 29 mmol/L 05/05/2023 8:52 AM [facility] Glucose 148(H) 70 - 115 mg/dL 05/05/2023 8:52 AM [facility] Albumin 2.8(L) 3.4 - 5.0 g/dL 05/05/2023 8:52 AM [facility] Calcium 9.1 8.4 - 10.2 mg/dL 05/05/2023 8:52 AM [facility] Phosphorus 4.2 2.9 - 5.1 mg/dL 05/05/2023 8:52 AM [facility] Anion Gap 13 8 - 18 05/05/2023 8:52 AM [facility] BUN/Creatinine Ratio 19 7 - 23 05/05/2023 8:52 AM [facility] Osmolality Calculated 297 270 - 300 mOsm/kg 05/05/2023 8:52 AM [facility] eGFR by CKD-EPI 33(L) >=90 mL/min/1.7 3 m2 05/05/2023 8:52 AM [facility] Blood BLOOD SPECIMEN / Unknown Lab Venipuncture / Unknown 05/05/2023 7:38 AM CDT 05/05/2023 8:21 AM T Dakotah Sheffield MD LAB - CHEMISTRY LAKSHMI GRAF Performing Organization Address [facility]/ZIP Co de Phone Number [address] [address], [place] [phone] * (ABNORMAL) TROPONIN-I HIGH SENSITIVE (05/05/2023 12:57 AM CDT) Only the most recent of11 resultswithin the time period is included. Pathologist [facility] Troponin I High Sensitive 141(H) <=14 ng/L 05/05/2023 1:58 AM CDT [facility] Blood BLOOD SPECIMEN / Unknown Lab Venipuncture / Unknown 05/05/2023 12:57 AM CDT 05/05/2023 1:25 AM CDT Tyron Valdez MD LAB - CHEMISTRY LAKSHMI GRAF Performing Organization Address City/[facility]/ZIP Co de Phone Number [address] [address], [place] [phone] * (ABNORMAL) TSH REFLEX FREE T4 (05/04/2023 4:06 AM CDT) [facility] TSH 0.285(L) 0.350 - 4.940 uIU/mL 05/04/2023 6:10 AM CDT [facility] Blood BLOOD SPECIMEN / Unknown Lab Venipuncture / Unknown 05/04/2023 4:06 AM CDT 05/04/2023 5:24 AM CDT Ru Pena MD LAB - CHEMISTRY YOVANY MORALES [address] [address], [place] [phone] * (ABNORMAL) HEMOGLOBIN A1C (05/04/2023 4:06 AM CDT) Pathologist [facility] Hemoglobin A1c 7.8(H) <=5.6 % 05/04/2023 2:37 PM CDT [facility] Estimated Average Glucose 177 mg/dL 05/04/2023 2:37 PM CDT [facility] Comment: HbA1c Interpretation: Normal : < 5.7% Pre-diabetes: 5.7-6.4% Diabetes: Equal to or greater than 6.5% Test results diagnostic of diabetes should be repeated for confirmation. Treatment target values recommended by ADA and other clinical organizations should be used to evaluate metabolic control in patients. Reference: [place] [employer], Standards of Care in Diabetes [...] Pena MD LAB - CHEMISTRY ORD ERABLES [address] [address], [facility] [phone] * (ABNORMAL) B-TYPE NATRIURETIC PEPTIDE (05/04/2023 4:06 AM CDT) Only the most recent of2 resultswithin the time period is included. BNP 758(H) <100 pg/mL 05/04/2023 5:57 AM CDT [facility] Comment: A decision threshold of 100 pg/mL has been demonstrated to provide the maximal combination of sensitivity, specificity and predictive value for the diagnosis of congestive heart failure (CHF). ??Virtually all patients with no evidence of CHF have BNP values less than 100 pg/mL. A BNP value greater than 100 pg/mL is consistent with the diagnosis of CHF in the appropriate clinical setting. In a study of 693 patients (male and female) with diagnosed CHF, the following values were determined based on the NYHA functional classification system: NYHA Functional Class ?Mean Valule (pg/mL) ? % >100 pg/mL ?I ?320 ? 58.1 ?II ? 432 ? 73.0 ?III ?656 ? 79.0 ?IV ?1635 ? 98.3 ? Blood BLOOD SPECIMEN / Unknown Lab Venipuncture / Unknown 05/04/2023 4:06 AM CDT 05/04/2023 5:24 AM CDT Ru Pena MD LAB - CHEMISTRY Wantful Performing Organization Address City/[facility] Co de Phone Number [address] [address], [place] [phone] * T4 FREE (05/04/2023 4:06 AM CDT) T4 Free 1.4 0.7 - 1.5 ng/dL 05/04/2023 6:43 AM CDT [facility] Blood BLOOD SPECIMEN / Unknown Lab Venipuncture / Unknown 05/04/2023 4:06 AM CDT 05/04/2023 5:24 AM CDT Ru Pena MD LAB - CHEMISTRY Wantful Performing Organization Address City/[facility]/ZIP Co de Phone Number [facility] [address] [place] [address], [place] [phone] * BLOOD TYPE VERIFICATION (05/03/2023 11:42 PM CDT) ABO Rh B POS 05/04/2023 1:[address] [facility] BLOOD BANK LAB Blood Bank BLOOD SPECIMEN / Unknown Lab Venipuncture / Unknown 05/03/2023 11:42 PM CDT 05/04/2023 12:00 AM CDT Elvi Landa MD LAB - BLOOD BANK ORD ERABLES [facility]LOOD [facility] LAB [address] [place] [address], [facility] [phone] * CT ANGIO AORTA FOR DISSECTION (05/03/2023 4:15 AM CDT) Anatomical Region Laterality Modality Abdomen Computed Tomogra phy 05/03/2023 4:19 AM CDT Impressions 05/03/2023 10:20 AM CDT Impression: 1.No aortic dissection. 2.Bilateral interseptal thickening and small areas of patchy groundglass opacities of lungs favored to represent pulmonary edema, in the setting of cardiomegaly. 3.Age indeterminate compression deformity of L1 superior endplate. 4.Sigmoid diverticulosis. 5.Left adrenal nodule, indeterminate, measuring 1.3 cm. 6.Heterogenous appearance of left thyroid. A nonemergent thyroid ultrasound can be done for further evaluation if not already done. Report drafted by Micheal Luong (resident) I, Charles Carson MD have personally reviewed and interpreted this examination/study. > Interpreting Provider: Charles Carson MD on 05/03/2023 10:20 AM Narrative 05/03/2023 10:20 AM CDT PROCEDURE: ??CT ANGIO AORTA FOR DISSECTION, DATE/TIME OF EXAM: ??05/03/2023 4:16 AM, LOCATION ??[facility] INDICATION: R06.02: SOB (shortness of breath) ADDITIONAL CLINICAL INFORMATION: Ordering Provider Reason For Exam: ??concern for PE and dissection,, concurrent new CP EXAMINATION: Computed tomography (CT) of the chest, abdomen, and pelvis with contrast TECHNIQUE: CT of the chest, abdomen, and pelvis was performed prior to and following the uneventful administration of 100 mL of Isovue 370 intravenous contrast according to an angiogram dissection protocol. Multiplanar reconstructions and post processed 3-D images were produced. Clinical Information HISTORY: R06.02: SOB (shortness of breath) COMPARISON: None. Findings Thoracic aorta: There is no aortic dissection, intramural hematoma, penetrating atherosclerotic ulcer, or aneurysm. Thoracic aortic branches: Subclavian arteries:Patent without significant focal stenosis. Brachiocephalic artery:Patent without significant focal stenosis. Pulmonary artery: Normal. Coronary arteries: Atherosclerotic ossifications of the coronary arteries are seen. Abdominal aorta: There is no aortic dissection, intramural hematoma, penetrating atherosclerotic ulcer, or aneurysm. Abdominal aortic branches: Celiac axis: Atherosclerotic with moderate multifocal stenoses. Superior mesenteric artery: Patent without significant focal stenosis. Inferior mesenteric artery: Atherosclerotic but patent without significant focal stenosis. Right renal artery: Atherosclerotic with mild multifocal stenoses. Left renal artery: Atherosclerotic with moderate multifocal stenoses. Right common iliac artery: Atherosclerotic but patent without significant focal stenosis. Right internal iliac artery: Atherosclerotic with moderate multifocal stenoses. Right external iliac artery: Atherosclerotic but patent without significant focal stenosis. Left common iliac artery: Atherosclerotic but patent without significant focal stenosis. Left internal iliac artery: Atherosclerotic with severe multifocal stenoses. Left external iliac artery: Patent without significant focal stenosis. Chest: Lines/Tubes: None. Lower neck and axillae: Left heterogenous appearance of the thyroid. Partially imaged. Gas in the left aspect of the neck with adjacent surgical clips, which may related to recent procedure. Mediastinum and Flavia: No enlarged lymph nodes are present. Heart and Pericardium: Cardiomegaly. Pulmonary Parenchyma and Airways and Pleural Space: Bilateral small pleural effusion with associated atelectasis is present. Bilateral interseptal thickening with small patchy areas of groundglass opacity bilaterally favors to represent pulmonary edema in the setting of cardiomegaly. Abdomen/pelvis: Hepatobiliary: Normal. Pancreas: Normal. Spleen: Normal. Kidneys: Normal. Adrenals: Left adrenal nodule (series 4 image 318) measuring 1.3 cm, indeterminate Retroperitoneum: Normal. Gastrointestinal: Sigmoid diverticulosis. Mesentery: Normal. Pelvic Structures: Normal. Vasculature: Scattered atherosclerotic vasculature changes. Bones: Diffuse osteopenia. Multiple levels of degenerative changes of the spine. Age indeterminate compression deformity of L1 superior endplate. Soft tissues: Normal. Procedure Note Charles Carson MD - 05/03/2023 PROCEDURE: CT ANGIO AORTA FOR DISSECTION, DATE/TIME OF EXAM: 05/03/2023 4:16 AM, LOCATION [facility] INDICATION: R06.02: SOB (shortness of breath) ADDITIONAL CLINICAL INFORMATION: Ordering Provider Reason For Exam: concern for PE and dissection,, concurrent new CP EXAMINATION: Computed tomography (CT) of the chest, abdomen, and pelvis with contrast TECHNIQUE: CT of the chest, abdomen, and pelvis was performed prior to andfollowing the uneventful administration of 100 mL of Isovue 370 intravenouscontrast according to an angiogram dissection protocol. Multiplanarreconstructions and post processed 3-D images were produced. Clinical Information HISTORY: R06.02: SOB (shortness of breath) COMPARISON: None. Findings Thoracic aorta: There is no aortic dissection, intramural hematoma, penetrating atherosclerotic ulcer, or aneurysm. Thoracic aortic branches: Subclavian arteries:Patent without significant focal stenosis. Brachiocephalic artery:Patent without significant focal stenosis. Pulmonary artery: Normal. Coronary arteries: Atherosclerotic ossifications of the coronaryarteries are seen. Abdominal aorta: There is no aortic dissection, intramural hematoma, penetrating atherosclerotic ulcer, or aneurysm. Abdominal aortic branches: Celiac axis: Atherosclerotic with moderate multifocal stenoses. Superior mesenteric artery: Patent without significant focal stenosis. Inferior mesenteric artery: Atherosclerotic but patent withoutsignificant focal stenosis. Right renal artery: Atherosclerotic with mild multifocal stenoses. Left renal artery: Atherosclerotic with moderate multifocal stenoses. Right common iliac artery: Atherosclerotic but patent withoutsignificant focal stenosis. Right internal iliac artery: Atherosclerotic with moderate multifocal stenoses. Right external iliac artery: Atherosclerotic but patent withoutsignificant focal stenosis. Left common iliac artery: Atherosclerotic but patent without significant focal stenosis. Left internal iliac artery: Atherosclerotic with severe multifocal stenoses. Left external iliac artery: Patent without significant focal stenosis. Chest: Lines/Tubes: None. Lower neck and axillae: Left heterogenous appearance of the thyroid. Partially imaged. Gas in the left aspect of the neck with adjacentsurgical clips, which may related to recent procedure. Mediastinum and Flavia: No enlarged lymph nodes are present. Heart and Pericardium: Cardiomegaly. Pulmonary Parenchyma and Airways and Pleural Space: Bilateral small pleural effusion with associated atelectasis is present. Bilateral interseptal thickening with small patchy areas of groundglass opacity bilaterally favors to represent pulmonary edema in the settingof cardiomegaly. Abdomen/pelvis: Hepatobiliary: Normal. Pancreas: Normal. Spleen: Normal. Kidneys: Normal. Adrenals: Left adrenal nodule (series 4 image 318) measuring 1.3 cm, indeterminate Retroperitoneum: Normal. Gastrointestinal: Sigmoid diverticulosis. Mesentery: Normal. Pelvic Structures: Normal. Vasculature: Scattered atherosclerotic vasculature changes. Bones: Diffuse osteopenia. Multiple levels of degenerative changes of thespine. Age indeterminate compression deformity of L1 superior endplate. Soft tissues: Normal. Impression: 1.No aortic dissection. 2.Bilateral interseptal thickening and small areas of patchy groundglass opacities of lungs favored to represent pulmonary edema, in the settingof cardiomegaly. 3.Age indeterminate compression deformity of L1 superior endplate. 4.Sigmoid diverticulosis. 5.Left adrenal nodule, indeterminate, measuring 1.3 cm. 6.Heterogenous appearance of left thyroid. A nonemergent thyroidultrasound can be done for further evaluation if not already done. Report drafted by Micheal Luong (resident) Charles Moore MD have personally reviewed and interpreted this examination/study. > Interpreting Provider: Charles aCrson MD on 05/03/2023 10:20 AM Ru Pena MD CT ORDERABLES * CT ANGIO NECK (05/03/2023 4:15 AM CDT) Anatomical Region Laterality Modality Head Computed Tomogra phy 05/03/2023 4:42 AM CDT Impressions 05/03/2023 2:23 PM CDT IMPRESSION: 1.No hemodynamically significant stenosis of the neck arteries. No evidence of large arterial injury identified in the neck. 2.Postsurgical changes of carotid endarterectomy with mild adjacent soft tissue stranding and scattered foci of subcutaneous gas. No evidence of significant adjacent hematoma. 3.Multinodular goiter of the left thyroid lobe. Further evaluation with nonemergent thyroid ultrasound can be performed if not already done so. > Dictated by Iraj Moss MD, (radiology physician). Katy Moore MD have personally reviewed and interpreted this examination/study. > Interpreting Provider: Katy Lima MD on 05/03/2023 2:23 PM Narrative 05/03/2023 2:23 PM CDT PROCEDURE: ??CT ANGIO NECK, DATE/TIME OF EXAM: ??05/03/2023 4:16 AM, LOCATION [facility] INDICATION: R06.02: SOB (shortness of breath) ADDITIONAL CLINICAL INFORMATION: Ordering Provider Reason For Exam: ??postop L carotid stenosis, concern for hematoma COMPARISON: None. EXAMINATION: COMPUTED TOMOGRAPHIC (CT) ANGIOGRAPHY OF THE NECK WITH CONTRAST TECHNIQUE: CT angiography of the neck was obtained after the uneventful administration of 100 mL Isovue 370 intravenous contrast. Three dimensional postprocessing was performed by the technologist and sent to the workstation for review. COMPARISON: None. FINDINGS: Non-angiographic findings: Mild soft tissue stranding, scattered foci of subcutaneous gas and several surgical clips seen surrounding the left carotid bifurcation likely representing postsurgical changes of recent left carotid endarterectomy. No evidence of significant adjacent hematoma. Multinodular goiter of the left thyroid lobe. A 7 mm sebaceous cyst in the right cheek. More right-sided pleural effusion. No acute fracture or traumatic malalignment of the cervical spine. Moderate to severe multilevel degenerative changes. Moderate multilevel disc. Angiographic findings: Evaluation of carotid stenosis by atherosclerotic changes is based on NASCET criteria. 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 There is a common origin of the innominate and left common carotid arteries from the aortic arch. There is atherosclerotic calcification of the innominate and subclavian arteries. There is atherosclerotic disease of the right carotid bifurcation and origin of the right internal carotid artery with less than 50 percent focal stenosis. The right common and internal carotid arteries otherwise appear normal. The left common and internal carotid arteries as well as the left carotid bifurcation appear normal. Dense calcifications aren't the carotid siphons bilaterally. There is atherosclerotic disease involving the cervical vertebral arteries without significant focal stenosis. Procedure Note Katy Lima MD - 05/03/2023 PROCEDURE: CT ANGIO NECK, DATE/TIME OF EXAM: 05/03/2023 4:16 AM, LOCATION [facility] INDICATION: R06.02: SOB (shortness of breath) ADDITIONAL CLINICAL INFORMATION: Ordering Provider Reason For Exam: postop L carotid stenosis, concernfor hematoma COMPARISON: None. EXAMINATION: COMPUTED TOMOGRAPHIC (CT) ANGIOGRAPHY OF THE NECK WITH CONTRAST TECHNIQUE: CT angiography of the neck was obtained after the uneventful administration of 100 mL Isovue 370 intravenous contrast. Threedimensional postprocessing was performed by the technologist and sent to the workstation for review. COMPARISON: None. FINDINGS: Non-angiographic findings: Mild soft tissue stranding, scattered foci of subcutaneous gas andseveral surgical clips seen surrounding the left carotid bifurcation likely representing postsurgical changes of recent left carotid endarterectomy.No evidence of significant adjacent hematoma. Multinodular goiter of the left thyroid lobe. A 7 mm sebaceous cyst inthe right cheek. More right-sided pleural effusion. No acute fracture or traumatic malalignment of the cervical spine.Moderate to severe multilevel degenerative changes. Moderate multilevel disc. Angiographic findings: Evaluation of carotid stenosis by atherosclerotic changes is based on NASCET criteria. 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 There is a common origin of the innominate and left common carotid arteries from theaortic arch. There is atherosclerotic calcification of the innominate and subclavian arteries. There is atherosclerotic disease of the rightcarotid bifurcation and origin of the right internal carotid artery with lessthan 50 percent focal stenosis. The right common and internal carotidarteries otherwise appear normal. The left common and internal carotid arteriesas well as the left carotid bifurcation appear normal. Dense calcifications aren't the carotid siphons bilaterally. There is atherosclerotic disease involving the cervical vertebral arteries without significant focal stenosis. IMPRESSION: 1.No hemodynamically significant stenosis of the neck arteries. Noevidence of large arterial injury identified in the neck. 2.Postsurgical changes of carotid endarterectomy with mild adjacent soft tissue stranding and scattered foci of subcutaneous gas. No evidence of significant adjacent hematoma. 3.Multinodular goiter of the left thyroid lobe. Further evaluation with nonemergent thyroid ultrasound can be performed if not already done so. > Dictated by Iraj Moss MD, MD (radiology physician). I, Katy Lima MD have personally reviewed and interpreted this examination/study. > Interpreting Provider: Katy Lima MD on 05/03/2023 2:23 PM [address] MD CT ORDERABLES * XR CHEST 1VW PORTABLE (05/03/2023 1:38 AM CDT) Anatomical Region Laterality Modality Chest Radiographic Aide ging 05/03/2023 1:40 AM CDT Narrative 05/03/2023 6:35 AM CDT PROCEDURE: ??XR CHEST 1VW PORTABLE, DATE/TIME OF EXAM: ??05/03/2023 1:39 AM, LOCATION ??[facility] INDICATION: R06.02: SOB (shortness of breath) ADDITIONAL CLINICAL INFORMATION: Ordering Provider Reason For Exam: ??sob, new o2 req, concern for pna COMPARISON: None. FINDINGS/IMPRESSION: Patient is rotated slightly rightward, limiting study evaluation. Interstitial and patchy airspace opacities at the bilateral lung bases, pulmonary vascular congestion and cardiomegaly suggestive of mild pulmonary edema however superimposed infection such as such as pneumonia cannot be excluded. Possible small right pleural effusion. Left costophrenic angle is incompletely visualized. No pneumothorax. Superior mediastinal contours are within normal limits. No acute osseous abnormalities. Report dictated by Iraj Moss MD, (radiology physician). Ryan Moore MD have personally reviewed and interpreted this examination/study. > Interpreting Provider: Ryan Wilkins MD on 05/03/2023 6:35 AM Procedure Note Ryan Wilkins MD - 05/03/2023 PROCEDURE: XR CHEST 1VW PORTABLE, DATE/TIME OF EXAM: 05/03/2023 1:39 AM, LOCATION [facility] INDICATION: R06.02: SOB (shortness of breath) ADDITIONAL CLINICAL INFORMATION: Ordering Provider Reason For Exam: sob, new o2 req, concern for pna COMPARISON: None. FINDINGS/IMPRESSION: Patient is rotated slightly rightward, limiting study evaluation. Interstitial and patchy airspace opacities at the bilateral lung bases, pulmonary vascular congestion and cardiomegaly suggestive of mildpulmonary edema however superimposed infection such as such as pneumonia cannot be excluded. Possible small right pleural effusion. Left costophrenic angle is incompletely visualized. No pneumothorax. Superior mediastinal contours are within normal limits. No acute osseous abnormalities. Report dictated by Iraj Moss MD, (radiology physician). Ryan Moorel, MD have personally reviewed and interpreted this examination/study. > Interpreting Provider: Ryan Wilkins MD on 05/03/2023 6:35AM Ru Pena MD DIAGNOSTIC IMAGING ORDERABLES * EKG 12-LEAD (05/03/2023 1:29 AM CDT) Ventricular Rate [address] [facility] Atrial Rate [address] [facility] P-R Interval [address] [facility] QRS Duration ms [address] [facility] Q-T Interval ms [address] [facility] QTC Calculation (Bezet) [address] [facility] Calculated P [place] [address] [facility] Calculated R [place] -[address] [facility] Calculated T [place] [address] [facility] Interpretation EKG NORMAL SINUS RHYTHM LEFT AXIS DEVIATION NON-SPECIFIC INTRA-VENTRIC ULAR CONDUCTION DELAY ABNORMAL ECG NO PREVIOUS ECGS AVAILABLE Confirmed by LUIS CARLOS CROFT, WAYLONCAROLYN ([id number]) on 05/06/2023 8:46:32 PM [facility] 05/03/2023 1:29 AM CDT 05/06/2023 8:46 PM CDT Ru Pena MD ECG ORDERABLES [facility] * LIPASE BLOOD (05/03/2023 1:21 AM CDT) Pathologist [facility] Lipase 10 8 - 78 U/L 05/03/2023 1:56 AM CDT [facility] Blood BLOOD SPECIMEN / Unknown Venipuncture / Unknown 05/03/2023 1:21 AM CDT 05/03/2023 1:31 AM CDT Narrative [facility] - 05/03/2023 1:56 AM CDT Lipase results from the [employer] analyzer may not be comparable with other methodologies. Ru Pena MD LAB - CHEMISTRY ORD ERABLES [facility] [address] [place] [address], [place] [phone] * TYPE + SCREEN PANEL (05/03/2023 1:16 AM CDT) Antibody Screen NEG 2:[address] [facility] ABO Rh B POS 05/03/2023 2:[address] [facility] Blood Bank BLOOD SPECIMEN / Unknown Venipuncture / Unknown 05/03/2023 1:16 AM CDT 05/03/2023 1:34 AM CDT Ru Pena MD LAB - BLOOD BANK OR DERABLES [facility] [address] [place] [address], [facility] [phone] Care Teams Siding Coreboard Inspector Relationship Specialty Start Date End Date Neftali Torres MD [address] [place], [place] [id number] PCP - General 06/05/16
--- OUTSIDE RECORDS SUMMARY | 2024-10-30 15:17 | XMS_ITS | Data Portability ---
Author Organization [facility], Main Office Address [address] [place] [address] Care Team Providers Care Test Conductor Name Role Phone JULIO FLORENCE Referring Provider TAWANDA CANNON Primary Care Provider [phone] Assessment No assessment recorded. Plan of Treatment Reminders Order Date Submit Date Provider Last Modified By Organization Details Last Modified Time Details Appointments None recorded. Lab None recorded. Referral endocrinolo gy referral - also had recent finding of left adrenal adenoma from CT scan in May 072022 023 [email or web address] Yin Jackson MD, [address]rez,, [address], [address], 3 12:21:26 Procedures None recorded. Surgeries None recorded. Imaging None recorded. Medication Orders Jardiance 25 mg tablet 2022 023 [facility], [address] [place], [address], 3 12:03:55 Patient TargetsNo targets recorded. Patient InstructionsNo instructions recorded. Reason for Referral Endocrinology Referral for U ncontrolled type 2 diabetes mellitus also had recent finding of left adrenal adenoma from CT scan in April Referring Physician: Jessica Zelaya, Endocrinology, Encounter Date: 05/10/2023 Results Created Date Observation Date Name Description Value Unit Range Abnormal Flag Note LastModifiedBy Organization Detail LastModifiedTime Result Notes None recorded. Problems Name Problem SNOMED Code Status Onset Date Resolution Date Notes Provider Name and Address Organization Details Recorded Time Benign essential hypertension 8482482 Active Not Available [facility] 3 20:31:15 Hypoglycemia 187053101 Active Not Available [facility] 3 20:31:15 Type 2 diabetes mellitus without complication 428464362 Active Not Available [facility] 3 20:31:15 Vitamin D deficiency 66548167 Active Not Available [facility] 3 20:31:15 Depressive disorder 40406469 Active 2021 Not Available [facility] 3 20:31:15 Sinusitis 02442418 Active Not Available [facility] 3 20:31:15 Dyslipidemia 946864959 Active 2021 Not Available [facility] 3 20:31:15 Osteoarthriti s 191880578 Active Not Available [facility] 3 20:31:15 Uncontrolled type 2 diabetes mellitus 531196415 Active Not Available [facility] 3 20:31:15 Anxiety 07748934 Active Not Available [facility] 3 20:31:15 Adrenal adenoma 364166393 Active 2022 Jessica Zelaya MD [address] [place] [address], [address] , [facility] Collections 3 13:34:42 Notes:Some problems listed i n Document: #[id number] could not be added to this patient's chart. Please review this document and add these problems to the patient's chart manually as needed. Problem Notes None recorded. Medical Equipment None Reported. Allergies Allergen ID Allergen Name Allergen Category Reaction Reaction Severity Criticality Documentation Date Start Date Code Code System Note Provider Name and Address Organization Details Recorded Time 53112 codeine medicatio n Not available Not available Not available 11/28/2022 2670 RxNorm Not Available [facility] 3 15:13:42 Medications Name Sig Start Date Stop Date Status Note LastModified by Organization Details LastModified Time cyclobenzap rine 10 mg tablet 05/08 completed Not Available Not Available Not Available furosemide 40 mg tablet TAKE 1 TABLET BY MOUTH IN THE MORNING active Not Available Not Available No t Available fluconazole 100 mg tablet TAKE TWO TABLETS BY MOUTH ON DAY 1, THEN TAKE ONE TABLET BY MOUTH DAILY FOR 2 WEEKS 05/08 completed Not Available Not Available Not Available atorvastati n 80 mg tablet TAKE 1 TABLET BY MOUTH NIGHTLY AT BEDTIME active Not Available Not Available No t Available nystatin 100,000 unit/mL oral suspension RINSE ONE TEASPOONF UL BY MOUTH FOR ONE MINUTE FOUR TIMES DAILY UNTIL SYMPTOMS SUBSIDE 05/08 completed Not Available Not Available Not Available prednisone 10 mg tablet Take by oral route. 12/27 completed Not Available Not Available Not Available cefuroxime axetil 250 mg tablet 11/22 completed Not Available Not Available Not Available atorvastati n 20 mg tablet one tablet qd 01/30 completed Not Available Not Available Not Available ketoconazol e 2 % shampoo active Not Available Not Available Not Available metoprolol succinate ER 50 mg tablet,exte nded release 24 hr TAKE 1 TABLET BY MOUTH ONCE DAILY active Not Available Not Available No t Available valacyclovi r 1 gram tablet 05/08 completed Not Available Not Available Not Available hydrocodone 5 mg-acetamin ophen 325 mg tablet 05/08 completed Not Available Not Available Not Available isosorbide mononitrate ER 30 mg tablet,exte nded release 24 hr TAKE 1 TABLET BY MOUTH ONCE DAILY active Not Available Not Available No t Available clonazepam 0.5 mg tablet TAKE 1 TO 2 TABLETS BY MOUTH AT BEDTIME NEEDED active Not Available Not Available No t Available lovastatin 40 mg tablet Take 1 tablet every day by oral route. 03/18 completed Not Available Not Available Not Available Zithromax Z-Jorge 250 mg tablet Take 2 TABLEts the first day then 1/day 12/27 completed Not Available Not Available Not Available Lantus U-100 Insulin 100 unit/mL subcutaneou s solution Inject 20 units every day by subcutane ous route. 11/22 completed Not Available Not Available Not Available Flonase 50 mcg/actuati on nasal spray,suspe nsion Inhale 2 sprays every day by intranasa l route in the evening. 05/08 completed Not Available Not Available Not Available hydralazine 25 mg tablet TAKE 1 TABLET BY MOUTH THREE TIMES DAILY active Not Available Not Available No t Available clopidogrel 75 mg tablet TAKE 1 TABLET BY MOUTH ONCE DAILY active Not Available Not Available No t Available amlodipine 5 mg tablet 01/30 completed Not Available Not Available Not Available triamcinolo ne acetonide 0.1 % topical cream 05/10 completed Not Available Not Available Not Available spironolact one 25 mg tablet 05/08 completed Not Available Not Available Not Available glimepiride 2 mg tablet TAKE 1 TABLET BY MOUTH TWICE DAILY BEFORE MEAL(S) 2022 active Not Available Not Available Not Avai lable alprazolam 0.25 mg tablet TAKE 1/2 TO 1 (ONE-HALF TO ONE) TABLET BY MOUTH TWICE DAILY NEEDED FOR ANXIETY active Not Available Not Available No t Available methocarbam ol 750 mg tablet TAKE 1 TABLET BY MOUTH THREE TIMES DAILY 05/10 completed Not Available Not Available Not Available OneTouch Ultra Test strips 05/10 completed Not Available Not Available Not Available doxycycline monohydrate 100 mg capsule active Not Available Not Available Not Available oseltamivir 75 mg capsule 05/10 completed Not Available Not Available Not Available isosorbide dinitrate 20 mg tablet TAKE 1 TABLET BY MOUTH THREE TIMES DAILY FOR 30 DAYS active Not Available Not Available No t Available metformin 1,000 mg tablet TAKE ONE TABLET BY MOUTH TWICE DAILY 05/08 completed Not Available Not Available Not Available lisinopril 10 mg tablet TAKE 1 TABLET BY MOUTH ONCE DAILY active Not Available Not Available No t Available warfarin 5 mg tablet 05/08 completed Not Available Not Available Not Available magnesium 500 mg (as magnesium oxide) tablet 05/08 completed Not Available Not Available Not Available gabapentin 300 mg capsule 01/30 completed Not Available Not Available Not Available lisinopril 20 mg-hydrochl orothiazide 25 mg tablet Take 1 tablet every day by oral route. 01/30 completed Not Available Not Available Not Available SSD 1 % topical cream APPLY TO LEG EVERY 12 HOURS active Not Available Not Available No t Available fluoxetine 20 mg capsule Take 1 capsule every day by oral route for 30 days. active Not Available Not Available No t Available sertraline 50 mg tablet Take 1 tablet every day by oral route. 12/27 completed Not Available Not Available Not Available metoclopram nichole 10 mg tablet 05/08 completed Not Available Not Available Not Available amoxicillin 875 mg-potassiu m clavulanate 125 mg tablet TAKE 1 TABLET BY MOUTH TWICE DAILY FOR 7 DAYS 05/08 completed Not Available Not Available Not Available azithromyci n 500 mg tablet TAKE 1 TABLET BY MOUTH ONCE DAILY FOR 3 DAYS active Not Available Not Available No t Available Vigamox 0.5 % eye drops active Not Available Not Available Not Available rosuvastati n 20 mg tablet TAKE 1 TABLET BY MOUTH ONCE DAILY 05/10 completed Not Available Not Available Not Available bupropion HCl XL 150 mg 24 hr tablet, extended release 05/08 completed Not Available Not Available Not Available mirtazapine 7.5 mg tablet 05/08 completed Not Available Not Available Not Available duloxetine 20 mg capsule,del ayed release TAKE 1 CAPSULE BY MOUTH ONCE DAILY IN THE EVENING 11/22 completed Not Available Not Available Not Available duloxetine 30 mg capsule,del ayed release TAKE 1 CAPSULE BY MOUTH ONCE DAILY active Not Available Not Available No t Available magnesium 05/08 completed Not Available Not Available Not Available aspirin 2020 active Not Available Not Available Not Avai lable zinc 2020 active Not Available Not Available Not Avai lable Fish Oil 2020 active Not Available Not Available Not Avai lable Vitamin D3 05/08 completed Not Available Not Available Not Available collagen 05/10 completed Not Available Not Available Not Available Levemir FlexPen 100 unit/mL (3 mL) solution subcutaneou s insulin pen INJECT 20 UNITS DAILY 12/27 completed Not Available Not Available Not Available cephalexin 750 mg capsule 01/30 completed Not Available Not Available Not Available BD Insulin Syringe Ultra-Fine (half unit) 0.3 mL 31 gauge x 02/12 completed Not Available Not Available Not Available Januvia 25 mg tablet TAKE 1 TABLET BY MOUTH ONCE DAILY IN THE MORNING active Not Available Not Available No t Available Lantus Solostar U-100 Insulin 100 unit/mL (3 mL) subcutaneou s pen Inject 80 units every day by subcutane ous route in the morning. 04/14 completed sent in per Mildred Not Available Not Available Not Available Vit 3 2020 active Not Available Not Available Not Avai lable Xarelto 15 mg tablet 05/08 completed Not Available Not Available Not Available Farxiga 10 mg tablet Take 1 tablet by mouth once daily for 90 days active Not Available Not Available No t Available Jardiance 25 mg tablet Take 1 tablet every day by oral route in the morning for 90 days. 2022 active Not Available Not Available Not Avai lable Tresiba FlexTouch U-100 insulin 100 unit/mL (3 mL) subcutaneou s pen INJECT 30 UNITS SUBCUTANE OUSLY EVERY 24 HOURS IN THE EVENING active Not Available Not Available No t Available Byakhilon BCise 2 mg/0.85 mL subcutaneou s auto-inject or Inject 2 mg every week by subcutane ous route at dinner for 90 days. 05/08 completed Not Available Not Available Not Available [place] DVT-PE Treatment 30-Day Starter 5 mg (74 tablets) in dose pack active Not Available Not Available No t Available Tresiba U-100 Insulin 100 unit/mL subcutaneou s solution Inject 16 units every day by subcutane ous route at bedtime for 90 days. 01/30 completed Not Available Not Available Not Available FreeStyle Anne-Marie 2 Sensor kit CHANGE SENSOR EVERY 14 DAYS active Not Available Not Available No t Available FreeStyle Anne-Marie 2 [place] USE DIRECTED active Not Available Not Available No t Available Vitals Date Recorded Body mass index (BMI) Body mass index (BMI) Provider Name and Address Organization Details Last Updated DateTime 11/28/2022 30 kg/m2 28.3 kg/m2 Not Available [facility] 0 11/28/2022 15:12:19 Date Recorded Body mass index (BMI) Body mass index (BMI) Body height Body height Body height Body height Oxygen saturation Oxygen saturation in Arterial blood by Pulse oximetry Systolic blood pressure Diastolic blood pressure Systolic blood pressure Diastolic blood pressure Systolic blood pressure Diastolic blood pressure Systolic blood pressure Diastolic blood pressure Provider Name and Address Organization Details Last Updated DateTime 28.3 kg/m2 29.7 kg/m2 154.94 cm 154.94 cm 154.94 cm 154.94 cm 96 % 96 % 140 mm[Hg] 72 mm[Hg] 120 mm[Hg] 70 mm[Hg] 140 mm[Hg] 60 mm[Hg] 128 mm[Hg] 74 mm[Hg] Not Available [facility] 15:12:20 Date Recorded Oxygen saturation Oxygen saturation in Arterial blood by Pulse oximetry Oxygen saturation Oxygen saturation in Arterial blood by Pulse oximetry Oxygen saturation Oxygen saturation in Arterial blood by Pulse oximetry Heart rate Heart rate Heart rate Heart rate Respiratory rate Respiratory rate Body temperature Body temperature Body temperature Body temperature Body weight Body weight Body weight Provider Name and Address Organization Details Last Updated DateTime 3 98 % 98 % 99 % 99 % 98 % 98 % 78 /min 67 /min 55 /min 68 /min 16 /min 17 /min 98.9 [degF] 97.7 [degF] 97.7 [degF] 97.8 [degF] 72 121.1 9 g 50589.8 6 g 99783.8 6 g Not Available [facility] 3 15:12:21 Date Recorded Body weight Provider Name an d Address Organization Details Last Updated DateTime 11/28/2022 51107 g Not Available [facility] 3 15:12:22 Date Recorded Body height Provider Name an d Address Organization Details Last Updated DateTime 05/10/2023 154.94 cm Zaira Sylvester Mobly 05/10/2023 11:59:04 Date Recorded Body mass index (BMI) Body weight Provider Name and Address Organization Details Last Updated DateTime 05/10/2023 30 kg/m2 18953.47 g Zaira Flight Steward 05/10/2023 11:59:11 Date Recorded Heart rate Provider Name an d Address Organization Details Last Updated DateTime 05/10/2023 85 /min ZairaVeenome 05/10/2023 11:59:24 Date Recorded Systolic blood pressure Diastolic blood pressure Provider Name and Address Organization Details Last Updated DateTime 05/10/2023 118 mm[Hg] 64 mm[Hg] Zaira Flight Steward 05/10/2023 11:59:21 Social History Question Answer Notes LastModified by Organizat ion Details LastModified Time Tobacco Smoking Status Never Smoker Not Available [facility] 11/28/2022 15:12:00 What Is Your Level Of Alcohol Consumption? None [id number] Information not available 11/28/2022 Sex: Unknown Functional Status None recorded. Mental Status None recorded. Family History Nothing Reported. Medical History Condition Response HAVE YOU BEEN HOSPITALIZED OR SEEN IN [facility] IN THE PAST YEAR ? Y DIABETES, TYPE Y Gynecological HistoryNo gynecological history recorded. Obstetrics History GPAL:G 0 P 0 0 0 0 Immunizations Vaccine Type Date Status Note Provider [facility] e and Address Organization Details Recorded Time Influenza, high-dose, trivalent, PF 4 completed Not Available [facility] 01/17/2023 20:31:15 Influenza, split virus, quadrivalent, PF 4 completed Not Available [facility] 01/17/2023 20:31:15 Pneumococcal conjugate PCV 13 4 completed Not Available [facility] 01/17/2023 20:31:15 Past Encounters Encounter ID Performer Location Encounter Start Date Encounter Closed Date Diagnosis/Indication Diagnosis SNOMED-CT Code Diagnosis ICD10 Code Diagnosis Note [id number] [facility] [address] [place] [address] 08/07/2021 00:00:00 08/07/2021 16:41:23 [id number] [facility] [address] [place] [address] 01/30/2022 00:00:00 01/30/2022 15:35:12 [id number] [facility] [address] [place] [address] 05/08/2022 00:00:00 05/08/2022 14:37:16 [id number] [facility] [address] [place] [address] 11/22/2022 00:00:00 11/22/2022 22:11:12 [id number] Jessica Zelaya MD [facility] [address] [place] [address] 05/10/2023 11:28:58 05/10/2023 12:21:26 Uncontrolled type 2 diabetes mellitus 088483017 E11.65 A1C not completed at [facility] - per log A1C likely 8% range- continue on januvia 25 mg a day and jardiance 25 mg daily as she is tolerating well. Agree with holding glimepirid e for now due to hypoglycem ia risk.Low nue on tresiba 16 units at bedtime and increase or decrease by 2 units every 3 days to maintain glucose of 90-130 mg/dL. refer to endocrinyvette rudolph per patient request Adrenal adenoma [id number]35[address] abdomen from recent hospitaliz ation in April. Patient provided referral to endocrinol ogy for full workup and evaluation . She will need DST and hormone panel. Spent up to 25 minutes preparing to see the patient (eg, review of tests), obtaining and/or reviewing separately obtained history, performing a medically appropriat e examinatio n and evaluation , counseling and educating the patient, ordering medication s, tests, along with documentin g clinical informatio n in the electronic health record, independen tly interpreti ng results and communicat ing results to the patient. Patient can be followed by PCP - she/he is aware of my resignatio n and last day of July 12. If needed his/her PCP can refer patient to another endocrinol ogist in the area. All questions /concerns answered and refills necessary at visit today. Health Concerns Section Related Observation LastModified by Organization Detai ls LastModified Time None Recorded Concern Status LastModified by Organization Details LastModified Time None Recorded Advance Directives Directive None Recorded Payers Encounter Date Sequence Insurance Name Policy Number Policy Sharma Covered Member ID Sharma Member ID Guarantor Name 05/10/2023 1 [facility] (MEDICARE REPLACEMENT/A DVANTAGE - HMO) [id number] Tran Bryan [id number] Tran Bryan Notes Date Note Type Note Provider Name and Address Organization Details Recorded Time 05/10/2023 text/html 77 yo female yo female comes in for follow up in management of uncontrolled type 2 DM (A1C not completed), dyslipidemia found to have an adrenal incidentaloma. At her last visit in Oct we had patient continue on glimepiride 2 mg BID with food, januvia 25 mg a day, farxiga 10 mg a day.Recommended patient drop her tresiba down to 16 units at bedtime and increase or decrease by 2 units every 3 days to maintain glucose of 90-130 mg/dL. we continued rosuvastatin patient has known hx of CAD s/p PCI, Carotid stenosis s/p LCEA found to have CHF exacerbation just last week. labs from 05/22Cr 1.63 mg/dL with GFR 33 ml/minglucose 148 mg/dL She was admitted to [facility] last and she was admitted with CHF discharged home on Saturday. She is currently jardiance and the hospital discontinued her glimepiride. Her sugars are running under 200 mg/dLdenies any hypoglycemia. Jessica Zelaya MD [address] [facility], [facility] [address], [place], [address], [place] - [facility] 05/10/2023 13:35:42 OBGyn Episode No OBEpisode recorded.
[2024-10-30 15:59] LABS: Hematocrit 41.3 % (35.0-42.0); Hemoglobin 12.7 g/dL (11.7-13.8); Mean Corpuscular HGB Conc 30.8 g/dL (32-36); Mean Corpuscular Hemoglobin 28.3 pg (27.0-31.0); Mean Platelet Volume 10.3 fl (9.2-11.8); Platelet Count Result 299 K/mm3 (150-420); Red Blood Count 4.49 M/mm3 (4.20-5.40); Red Cell Distribution Width 13.7 % (11.6-14.4); White Blood Count 7.5 K/mm3 (4.8-10.8)
[2024-10-30 16:17] LABS: Alanine Aminotransferase 21 U/L (14-59); Albumin Level 3.7 g/dL (3.4-5.0); Alkaline Phosphatase 66 U/L (46-116); Anion Gap 8 mmol/L (4-12); Aspartate Amino Transferase 12 U/L (15-37); Bilirubin,Total 0.4 mg/dL (0.00-1.00); Blood Urea Nitrogen 23 mg/dL (7-18); Calcium 9.3 mg/dL (8.5-10.1); Carbon Dioxide 31 mmol/L (21-32); Chloride 102 mmol/L (98-108); Estimated Glomerular Filt Rate 39; Glucose 82 mg/dL (70-99); Osmolality Calculated 294 mOsm/kg (285-295); Potassium 3.9 mmol/L (3.5-5.1); Sodium 141 mmol/L (136-145); Total Protein 6.6 g/dL (6.4-8.2)
== END 2024-10-30 15:14 | disposition home or self-care (01) ==
LOC: CHSLAB 15:15
PROVIDERS: PCP Internal Medicine; Visit Provider Internal Medicine
DX: N18.30 Chronic kidney disease, stage 3 unspecified (principal); I12.9 Hypertensive chronic kidney disease with stage 1 through stage 4 chronic kidney disease, or unspecified chronic kidney disease
CPT/HCPCS: 36415; 80053; 85027

== ENCOUNTER 2024-11-13 10:59 | Outpatient (CLI) | payer MEDICARE, SELFPAY ==
--- OUTSIDE RECORDS SUMMARY | 2024-11-13 11:13 | XMS_ITS | Clinical Summary ---
Author Organization [facility] Address [address] [place] [address] Phone Care Team Providers Care Correctional Security Officer Name Role Phone Neftali Torres MD Primary Care Provider [phone] Allergies Active Allergy Reactions Criticality Noted Date [...] Department Care Team Description 10/19/2024 12:30 PM EMPLOYMENT COORDINATOR Home Care Visit [address] [address] Kirsten Camarillo, PT PT - OASIS DISCHARGE 10/15/2024 11:00 AM EMPLOYMENT COORDINATOR Home Care Visit [address] [address] Shakira Torrez, SPLICER APPRENTICE PT - HOME VISIT 10/15/2024 10:00 AM EMPLOYMENT COORDINATOR Home Care Visit [address] [address] Bianca Flores OT OT - DISCIPLINE DISCHARGE 10/15/2024 Travel 10/14/2024 1:00 PM EMPLOYMENT COORDINATOR Home Care Visit [address] [address] Shakira Torrez, SPLICER APPRENTICE RESCHEDULED MISSED VISIT 10/13/2024 12:00 PM EMPLOYMENT COORDINATOR Home Care Visit [address] [address] Mallorie Chang LOUVER DOOR ASSEMBLER OT - HOME VISIT 10/12/2024 4:00 PM EMPLOYMENT COORDINATOR Home Care Visit [address] [address] Shakira Torrez, SPLICER APPRENTICE PT - HOME VISIT 10/12/2024 Travel 10/09/2024 10:00 AM EMPLOYMENT COORDINATOR Home Care Visit [address] [address] Shakira Torrez, SPLICER APPRENTICE PT - HOME VISIT 10/09/2024 6:30 AM EMPLOYMENT COORDINATOR Home Care Visit [address] [address] Bianca Flores, OT OT - [place] SUPERVISORY VISIT 10/07/2024 10:00 AM EMPLOYMENT COORDINATOR Home Care Visit [address] [address] Mallorie Chang OTA OT - HOME VISIT 10/07/2024 Travel 10/06/2024 Home Care Visit [address] [address] Bianca Flores, OT CARE CONFERENCE 10/02/2024 10:30 AM EMPLOYMENT COORDINATOR Home Care Visit [address] [address] Mallorie Chang OTA OT - HOME VISIT 10/02/2024 Travel 10/01/2024 11:00 AM EMPLOYMENT COORDINATOR Home Care Visit [address] [address] Shakira Torrez, SPLICER APPRENTICE PT - HOME VISIT 09/28/2024 12:00 PM EMPLOYMENT COORDINATOR Home Care Visit [address] [address] Shakira Torrez, SPLICER APPRENTICE PT - HOME VISIT 09/28/2024 Home Care Visit [address] [address] Nydia Joseph, RN CASE COMMUNICATION 09/28/2024 Home Care Visit [address] [address] Kirsten Camarillo, PT TELEPHONE ENCOUNTER 09/25/2024 11:00 AM EMPLOYMENT COORDINATOR Home Care Visit [address] [address] Kirsten Camarillo, PT PT - INITIAL EVALUATION 09/25/2024 9:30 AM EMPLOYMENT COORDINATOR Home Care Visit [address] [address] Bianca Flores, OT OT - [place]IS START OF CARE 09/25/[address] [address] Bianca Flores, OT Medication Management 09/25/2024 Plan of Care Documentation [facility] [address] [place] [address] from Last 3 Months Social History Tobacco Use Types Packs/Day Years Used Date Smoking Tobacco: Never Assessed Comments Unknown Sex and Gender Information Value Date Recorded Sex Assigned at Not on file Legal Sex Female 10:30 AM EMPLOYMENT COORDINATOR Gender Identity Not on file Sexual Orientation Not on file Last Filed Vital Signs Vital Sign Reading Time Taken Comments Blood Pressure 128/80 10/19/2024 12:37 PM EMPLOYMENT COORDINATOR Pulse 86 10/19/2024 12:37 PM EMPLOYMENT COORDINATOR Temperature 36.2 C (97.2 F) 10/19/2024 12:37 PM EMPLOYMENT COORDINATOR Respiratory Rate 18 10/19/2024 12:37 PM EMPLOYMENT COORDINATOR Oxygen Saturation 96% 10/19/2024 12:37 PM EMPLOYMENT COORDINATOR Inhaled Oxygen Concentration - - Weight 57.6 kg (127 lb) 10/19/2024 12:37 PM EMPLOYMENT COORDINATOR Height 149.9 cm (4' 11 ) 09/25/2024 10:45 AM EMPLOYMENT COORDINATOR Body Mass Index 25.65 09/25/2024 10:45 AM EMPLOYMENT COORDINATOR Plan of Treatment Health Maintenance Due Date Last Done Comments DEXA Bone Density 1945 Hepatitis C Virus (HCV) Screening 1945 TdaP Immunization 1945 Respiratory Syncytial Virus (RSV) Immunization (Adult) (1 - 1-dose 75+ series) 12/18/2022 SARS-COV-2 Immunization ( season) 2024 09/21/2021, 01/20/2021, 12/23/2020 Pneumococcal Immunization (50+ years) Completed 07/17/2017, 07/13/2017, 06/24/2014, Additional history exists Zoster Immunization Completed 03/14/2023, Influenza Immunization Completed 4, 08/13/2023, 08/30/2022, Additional history exists Hepatitis B Immunization Aged Out No longer eligible based on patient's age to complete this topic Meningococcal Immunization (ACWY) Aged Out No longer eligible based on patient's age to complete this topic Rotavirus Immunization Aged Out No lo nger eligible based on patient's age to complete this topic Insurance MEDICARE C [facility] Advance Directives Documents on File Type Date Recorded Patient Utility Assembler Expl anation Power of Technology Integration Specialist for Health Care 09/28/2024 11:33 AM POA 03/24/21 Power of Technology Integration Specialist for Health Care 09/28/2024 10:29 AM * Full Code (Latest Code Status on File) Date Activated Date Inactivated Comments 09/25/2024 7:25 PM Care Teams Correctional Security Officer Relationship Specialty Start Date End Date Neftali Torres MD [address] [place] [address] PCP - General Internal Medicine 11/29/21
--- OUTSIDE RECORDS SUMMARY | 2024-11-13 11:13 | XMS_ITS | Patient Health Summary ---
Author Organization [facility] Address [address] [place] [address] Care Team Providers Care Glass Tinter Name Role Phone Neftali Torres MD Primary Care Provider [phone] Note from [facility],non-owned Affiliates and Associated Physician Practices is amultiple site organization consisting of ambulatory clinics and hospital sitesin [place], [place], [place] and [place]. This disclosure is being madepursuant to the Care Everywhere program and may not contain all information available regarding this patient. Last updated 18.[facility] Allergies * Codeine(Other) -Low Criticality * Tramadol(Nausea [...] and heating? Not hard at all 09/15/2024 [facility] Rew of Occupat ional Health - Occupational Stress [...] place to sleep or slept in a [place] health care facility (including now)? No 05/03/2023 Housing Stability Vital Sign Answer Sawyer e Recorded In the last 12 months, was t here a time when you were not able to pay the mortgage or rent on time? No 09/15/2024 In the past 12 months, how m any times have you moved where you were living? 0 09/15/2024 At any time in the past 12 m [facility], were you homeless or living in a [place] health care facility (including now)? No 09/15/2024 Sex and Gender Information Value Date Recorded Sex Assigned at Not on file Gender Identity Not on file Sexual Orientation Not on file Last Filed Vital Signs Vital Sign Reading Time Taken Comments Blood Pressure 154/83 09/19/2024 12:11 PM NONPROFIT MANAGER Pulse 86 09/19/2024 12:11 PM NONPROFIT MANAGER Temperature 37 C (98.6 F) 09/19/2024 12:11 PM NONPROFIT MANAGER Respiratory Rate 14 09/19/2024 8:30 AM NONPROFIT MANAGER Oxygen Saturation 94% 09/19/2024 12:11 PM NONPROFIT MANAGER Inhaled Oxygen Concentration - - Weight 61.7 kg (136 lb) 09/19/2024 4:00 AM NONPROFIT MANAGER Height 152.4 cm (5') 09/15/2024 1:00 AM NONPROFIT MANAGER Body Mass Index 26.56 09/15/2024 1:00 AM NONPROFIT MANAGER Procedures * GLUCOSE - POINT OF CARE(Performed [...] * BLOOD TYPE VERIFICATION(Performed 05/03/2023) * PTT SL(Performed 05/03/2023) * TROPONIN-I HIGH SENSITIVE(Performed 05/03/2023) Performed [...] TYPE + SCREEN PANEL(Performed 05/03/2023) * PT-INR [facility](Performed 05/03/2023) * COMPREHENSIVE METABOLIC PANEL(Performed 05/03/2023) * CBC W AUTO DIFFERENTIAL(Performed 05/03/2023) Results * (ABNORMAL) GLUCOSE - POINT OF CARE (09/19/2024 12:12 PM NONPROFIT MANAGER) Only the most recent of37 resultswithin the time period is included. Glucose WB/POC 328(H) 70 - 99 mg/dL 09/19/2024 12:17 PM [facility] Specimen Type Cap Fingerstick 2023 12:17 PM [facility] Blood BLOOD SPECIMEN / Unknown 09/19/2024 12:12 PM NONPROFIT MANAGER 09/19/2024 12:17 PM NONPROFIT MANAGER Serena Marquez MD LAB - POINT OF CARE ORDERABLES [facility] [address] [place] [address], [facility] [phone] * (ABNORMAL) CBC W/O DIFFERENTIAL (09/19/2024 12:36 AM NONPROFIT MANAGER) Only the most recent of5 resultswithin the time period is included. WBC 7.0 4.0 - 10.7 x10E9/L 09/19/2024 1:05 AM [facility] RBC Count 3.75(L) 3.90 - 5.20 x10E12/L 09/19/2024 1:05 AM [facility] Hemoglobin 10.9(L) 11.9 - 15.8 g/dL 09/19/2024 1:05 AM [facility] Hematocrit 34.4(L) 34.8 - 46.1 % 09/19/2024 1:05 AM [facility] MCV 91.7 80.0 - 98.0 fL 09/19/2024 1:05 AM [facility] MCH 29.1 26.7 - 33.6 pg 09/19/2024 1:05 AM [facility] MCHC 31.7 31.7 - 36.3 g/dL 09/19/2024 1:05 AM [facility] RDW-CV 17.2(H) 11.3 - 14.8 % 09/19/2024 1:05 AM [facility] Platelet Count 387 150 - 420 x10E9/L 09/19/2024 1:05 AM [facility] MPV 10.5 7.8 - 11.4 fL 09/19/2024 1:05 AM [facility] Blood BLOOD SPECIMEN / Unknown Lab Venipuncture / Unknown 09/19/2024 12:36 AM NONPROFIT MANAGER 09/19/2024 12:53 AM NONPROFIT MANAGER Any Mccoy PA-C LAB - HEMATOLOG Y ORDERABLES [facility] [address] [place] [address], [facility] [phone] * (ABNORMAL) BASIC METABOLIC PANEL (CALCIUM TOTAL) (09/19/2024 12:36 AM NONPROFIT MANAGER) Only the most recent of5 resultswithin the time period is included. BUN 61(H) 7 - 26 mg/dL 09/19/2024 1:18 AM [facility] Creatinine 1.31(H) 0.56 - 0.96 mg/dL 09/19/2024 1:18 AM [facility] Sodium 136 136 - 145 mmol/L 09/19/2024 1:18 AM [facility] Potassium 5.0(H) 3.5 - 4.5 mmol/L 09/19/2024 1:18 AM [facility] Chloride 100 98 - 107 mmol/L 09/19/2024 1:18 AM [facility] CO2 30(H) 22 - 29 mmol/L 09/19/2024 1:18 AM [facility] Glucose 268(H) 70 - 99 mg/dL 09/19/2024 1:18 AM [facility] Calcium 9.2 8.4 - 10.2 mg/dL 09/19/2024 1:18 AM [facility] Anion Gap 6 6 - 16 09/19/2024 1:18 AM [facility] BUN/Creatinine Ratio 47(H) 7 - 23 09/19/2024 1:18 AM [facility] Osmolality Calculated 309(H) 275 - 295 mOsm/kg 09/19/2024 1:18 AM [facility] eGFR by CKD-EPI 42(L) >=90 mL/min/1.7 3 m2 09/19/2024 1:18 AM [facility] Blood BLOOD SPECIMEN / Unknown Lab Venipuncture / Unknown 09/19/2024 12:36 AM NONPROFIT MANAGER 09/19/2024 12:53 AM NONPROFIT MANAGER Any Deterding PA-C LAB - CHEMISTRY ORDERABLES Performing Organization Address City/[facility]/ZIP Co de Phone Number [address] [address], [facility] [phone] * PHOSPHORUS BLOOD (09/19/2024 12:36 AM NONPROFIT MANAGER) Only the most recent of6 resultswithin the time period is included. Phosphorus 3.9 2.9 - 5.1 mg/dL 09/19/2024 1:18 AM NONPROFIT MANAGER [facility] Blood BLOOD SPECIMEN / Unknown Lab Venipuncture / Unknown 09/19/2024 12:36 AM NONPROFIT MANAGER 09/19/2024 12:53 AM NONPROFIT MANAGER Any Deterding PA-C LAB - CHEMISTRY ORDERABLES Performing Organization Address [facility] Co de Phone Number [address] [address], [facility] [phone] * MAGNESIUM BLOOD (09/19/2024 12:36 AM NONPROFIT MANAGER) Only the most recent of8 resultswithin the time period is included. Magnesium 2.0 1.6 - 2.6 mg/dL 09/19/2024 1:18 AM NONPROFIT MANAGER [facility] Blood BLOOD SPECIMEN / Unknown Lab Venipuncture / Unknown 09/19/2024 12:36 AM NONPROFIT MANAGER 09/19/2024 12:53 AM NONPROFIT MANAGER Any Deterding PA-C LAB - CHEMISTRY ORDERABLES Performing Organization Address City/[facility]/ZIP Co de Phone Number [address] [address], [facility] [phone] * XR Femur Left 2Vw (09/14/2024 5:38 PM NONPROFIT MANAGER) Anatomical Region Laterality Modality Lower Extremity Digital Radiogra phy 09/14/2024 5:13 PM NONPROFIT MANAGER Narrative 09/14/2024 8:44 PM NONPROFIT MANAGER PROCEDURE: XR FEMUR LEFT 2VW, DATE/TIME OF EXAM: 09/14/2024 4:46 PM, LOCATION [facility] INDICATION: W19.XXXA: Fall, initial encounter COMPARISON: CT left hip and extrarenal pelvis with left hip 09/14/2024. FINDINGS/IMPRESSION: Redemonstration of age indeterminate fracture of the femoral neck/intertrochanteric region. Postsurgical changes of left hip fixation with intramedullary stephie and screw. The alignment appears normal. Atherosclerotic calcifications of the arteries. Report dictated by Ming Fair MD, (Blasting Helper). Armando Moore MD have personally reviewed and interpreted this examination/study. > Interpreting Provider: Armando Obando MD on 09/14/2024 8:44 PM Procedure Note Armando Obando MD - 09/14/2024 PROCEDURE: XR FEMUR LEFT 2VW, DATE/TIME OF EXAM: 09/14/2024 4:46 PM, LOCATION [facility] INDICATION: W19.XXXA: Fall, initial encounter COMPARISON: CT left hip and extrarenal pelvis with left hip 09/14/2024. FINDINGS/IMPRESSION: Redemonstration of age indeterminate fracture of the femoral neck/intertrochanteric region. Postsurgical changes of left hip fixation with intramedullary stephie and screw. The alignment appears normal. Atherosclerotic calcifications of the arteries. Report dictated by Ming Fair MD, (Blasting Helper). Armando Moore MD have personally reviewed and interpreted this examination/study. > Interpreting Provider: Armando Obando MD on 09/14/2024 8:44 PM Ki Beckford III, MD DIAGNOSTIC IMAG ING ORDERABLES * CARDIAC EKG ORDER (09/14/2024 1:13 PM NONPROFIT MANAGER) Only the most recent of2 resultswithin the time period is included. Narrative 09/14/2024 1:13 PM NONPROFIT MANAGER Ordered by an unspecified provider. Scanned Document CARDIAC SERVICES ORD ERABLES * CT Hip Left Wo Contrast (09/14/2024 8:46 AM NONPROFIT MANAGER) Anatomical Region Laterality Modality Lower Extremity Computed Tomogra phy 09/14/2024 11:3 4 AM NONPROFIT MANAGER Impressions 09/14/2024 12:02 PM NONPROFIT MANAGER IMPRESSION: 1.Age-indeterminate comminuted fracture of the femoral neck and mildly displaced fracture of the proximal femoral shaft. Subacute postsurgical changes of left hip fixation with intramedullary stephie and screw. Recommend direct comparison with prior imaging. 2.Likely seroma (or a Tyler-Christie lesion) in the lateral left superior lower extremity measuring up to 4.9 cm. Report dictated by Gia Sargent MD (md do resident urgent care). I, Manisha Singer MD have personally reviewed and interpreted this examination/study. > Interpreting Provider: Manisha Singer MD on 09/14/2024 12:02 PM Narrative 09/14/2024 12:02 PM NONPROFIT MANAGER PROCEDURE: CT HIP LEFT WO CONTRAST DATE/TIME [...] cm. Report dictated by Gia Sargent MD (md do resident urgent care). I, Manisha Singer MD have personally reviewed and interpreted this examination/study. > Interpreting Provider: Manisha Singer MD on 09/14/2024 12:02 PM Any HENSON-Fred CT ORDERABLES * (ABNORMAL) TROPONIN-I HIGH SENSITIVE REFLEX 1HOUR (09/14/2024 2:15 AM NONPROFIT MANAGER) Only the most recent of2 resultswithin the time period is included. Troponin I High Sensitive 32(H) <=14 ng/L 09/14/2024 3:38 AM [facility] Delta Troponin I HS 09/14/2024 3:38 AM [facility] Comment:Delta value intentio stanford not calculated. Baseline to 1 hour specimen collection interval exceeded. Blood BLOOD SPECIMEN / Unknown Venipuncture / Unknown 09/14/2024 2:15 AM NONPROFIT MANAGER 09/14/2024 2:59 AM NONPROFIT MANAGER Lam David MD LAB - CHEMISTRY LAKSHMI GRAF Performing Organization Address [facility]/ZIP Co de Phone Number [facility] [address] [place] [address], [place] [phone] * VITAMIN D 25-HYDROXY (09/14/2024 2:15 AM NONPROFIT MANAGER) Vitamin D, 25 Hydroxy 73.0 30.0 - 80.0 ng/mL 09/14/2024 3:12 PM NONPROFIT MANAGER [facility] Comment: The recommendations for 25-Hydroxy Vitamin D clinical decision points are as follows: Deficient: <20.0 ng/mL Insufficient: 20.0 - 29.9 ng/mL Sufficient: 30.0 - 100.0 ng/mL Potential Toxicity: >100 ng/mL Reference: The Endocrine Society Clinical Practice Guidelines. 2011 If the 25-Hydroxy Vitamin D results are inconsitent with clinical evidence, it is recommended that follow-up testing using a method such as LC/MS/MS be performed to confirm the result. Blood BLOOD SPECIMEN / Unknown Venipuncture / Unknown 09/14/2024 2:15 AM NONPROFIT MANAGER 09/14/2024 2:59 AM NONPROFIT MANAGER Mercedes Boateng PA-C LAB - CHEMIS TRY ORDERABLES Performing Organization Address [facility] Co de Phone Number [facility] [address] [place] [address], [place] [phone] * XR Pelvis W Left Hip 2Vw (09/14/2024 1:44 AM NONPROFIT MANAGER) Anatomical Region Laterality Modality Pelvis Digital Radiogra phy 09/14/2024 2:48 AM NONPROFIT MANAGER Narrative 09/14/2024 6:03 AM NONPROFIT MANAGER EXAMINATION: XR PELVIS W LEFT HIP 2VW DATE/TIME OF EXAM: 09/14/2024 1:54 AM, LOCATION [facility] HISTORY: W19.XXXA: Fall, initial encounter Fracture COMPARISON: No prior study is available for comparison. FINDINGS/IMPRESSION: The partially visualized stephie and screw internal fixation of the proximal femur is intact. There is cortical irregularity of the lesser trochanter/intertrochanteric region of the left femur which may represent an acute to subacute fracture, recommend correlation with point tenderness. Bilateral femoral heads are well-seated in respective acetabular fossas.Degenerative change is present at bilateral hip joints. There is no pubic symphysis diastasis. The sacroiliac joints are not widened. Cutaneous ronnell are seen lateral left hip. Report dictated by Ze Gama MD (md do resident urgent care). Armando Moore MD have personally reviewed and interpreted this examination/study. > Interpreting Provider: Armando Obando MD on 09/14/2024 6:03 AM Procedure Note Armando Obando MD - 09/14/2024 EXAMINATION: XR PELVIS W LEFT HIP 2VW DATE/TIME OF EXAM: 09/14/2024 1:54 AM, LOCATION [facility] HISTORY: W19.XXXA: Fall, initial [...] hip. Report dictated by Ze Gama MD (md do resident urgent care). Armando Moore MD have personally reviewed and interpreted this examination/study. > Interpreting Provider: Armando Obando MD on 09/14/2024 6:03 AM Lam David MD DIAGNOSTIC IMAGING O RDERABLES * (ABNORMAL) TROPONIN-I HIGH SENSITIVE BASELINE + 1HR (09/14/2024 12:23 AM NONPROFIT MANAGER) Only the most recent of2 resultswithin the time period is included. Troponin I High Sensitive 32(H) <=14 ng/L 09/14/2024 1:02 AM NONPROFIT MANAGER [facility] Blood BLOOD SPECIMEN / Unknown Venipuncture / Unknown 09/14/2024 12:23 AM NONPROFIT MANAGER 09/14/2024 12:30 AM NONPROFIT MANAGER Lam David MD LAB - CHEMISTRY LAKSHMI GRAF [facility] Organization Address City/State/ZIP Co de Phone Number [facility] [address] [place] [address], [facility] [phone] * CT Cervical Spine Wo Contrast (09/13/2024 7:15 PM NONPROFIT MANAGER) Anatomical Region Laterality Modality Spine Computed Tomogra phy 09/13/2024 7:09 PM NONPROFIT MANAGER Impressions 09/13/2024 7:57 PM NONPROFIT MANAGER IMPRESSION: 1.No acute intracranial hemorrhage, midline shift, or significant mass effect. 2.No acute facial bone fractures identified. 3.No evidence of acute fracture in the cervical spine. 4.There is a prominent left thyroid nodule. A nonemergent thyroid ultrasound is recommended for further evaluation. > Dictated by Ming Fair MD (Blasting Helper) I, Giles Moya MD have personally reviewed and interpreted this examination/study. > Interpreting Provider: Giles Moya MD on 09/13/2024 7:57 PM Narrative 09/13/2024 7:57 PM NONPROFIT MANAGER PROCEDURE: CT HEAD WO CONTRAST, CT CERVICAL SPINE WO CONTRAST, CT FACIAL BONES WO CONTRAST, DATE/TIME OF EXAM: 09/13/2024 7:21 PM, LOCATION [facility] INDICATION: W19.XXXA: Fall, initial encounter S00.03XA: Contusion of scalp, initial encounter H53.9: Vision changes EXAMINATION: 1. Computed tomography (CT) of the head without contrast 2. CT of the maxillofacial bones, orbits, and paranasal sinuses without contrast 3. CT of the cervical spine without contrast ADDITIONAL CLINICAL INFORMATION: Ordering Provider Reason For Exam: R/O ICH (accession [id number]), r/o frx (accession [id number]), r/o frx (accession [id number]) TECHNIQUE: CT of the head, cervical spine, [...] DATE/TIME OF EXAM: 09/13/2024 7:21 PM, LOCATION [facility] INDICATION: W19.XXXA: Fall, initial encounter S00.03XA: Contusion of scalp, initial encounter H53.9: Vision changes EXAMINATION: 1. Computed tomography (CT) of the head without contrast 2. CT of the maxillofacial bones, orbits, and paranasal sinuses without contrast 3. CT of the cervical spine without contrast ADDITIONAL CLINICAL INFORMATION: Ordering Provider Reason For Exam: R/O ICH (accession [id number]), r/ofrx (accession [id number]), r/o frx (accession [id number]) TECHNIQUE: CT of the head, cervical spine, [...] evaluation. > Dictated by Ming Fair MD (Blasting Helper) Giles Moore MD have personally reviewed and interpretedthis examination/study. > Interpreting Provider: Giles Moya MD on 09/13/2024 7:57 PM Silvina Galo PA-C CT ORDERABLES * CT Facial Bones Wo Contrast (09/13/2024 7:15 PM NONPROFIT MANAGER) Anatomical Region Laterality Modality Head Computed Tomogra phy 09/13/2024 7:09 PM NONPROFIT MANAGER Impressions 09/13/2024 7:57 PM NONPROFIT MANAGER IMPRESSION: 1.No acute intracranial hemorrhage, midline shift, or significant mass effect. 2.No acute facial bone fractures identified. 3.No evidence of acute fracture in the cervical spine. 4.There is a prominent left thyroid nodule. A nonemergent thyroid ultrasound is recommended for further evaluation. > Dictated by Ming Fair MD (Blasting Helper) Giles Moore MD have personally reviewed and interpreted this examination/study. > Interpreting Provider: Giles Moya MD on 09/13/2024 7:57 PM Narrative 09/13/2024 7:57 PM NONPROFIT MANAGER PROCEDURE: CT HEAD WO CONTRAST, CT CERVICAL SPINE WO CONTRAST, CT FACIAL BONES WO CONTRAST, DATE/TIME OF EXAM: 09/13/2024 7:21 PM, LOCATION [facility] INDICATION: W19.XXXA: Fall, initial encounter S00.03XA: Contusion of scalp, initial encounter H53.9: Vision changes EXAMINATION: 1. Computed tomography (CT) of the head without contrast 2. CT of the maxillofacial bones, orbits, and paranasal sinuses without contrast 3. CT of the cervical spine without contrast ADDITIONAL CLINICAL INFORMATION: Ordering Provider Reason For Exam: R/O ICH (accession [id number]), r/o frx (accession [id number]), r/o frx (accession [id number]) TECHNIQUE: CT of the head, cervical spine, [...] DATE/TIME OF EXAM: 09/13/2024 7:21 PM, LOCATION [facility] INDICATION: W19.XXXA: Fall, initial encounter S00.03XA: Contusion of scalp, initial encounter H53.9: Vision changes EXAMINATION: 1. Computed tomography (CT) of the head without contrast 2. CT of the maxillofacial bones, orbits, and paranasal sinuses without contrast 3. CT of the cervical spine without contrast ADDITIONAL CLINICAL INFORMATION: Ordering Provider Reason For Exam: R/O ICH (accession [id number]), r/ofrx (accession [id number]), r/o frx (accession [id number]) TECHNIQUE: CT of the head, cervical spine, [...] evaluation. > Dictated by Ming Fair MD (Blasting Helper) Giles Moore MD have personally reviewed and interpretedthis examination/study. > Interpreting Provider: Giles Moya MD on 09/13/2024 7:57 PM Silvina Galo PA-C CT ORDERABLES * CT Head Wo Contrast (09/13/2024 7:15 PM NONPROFIT MANAGER) Anatomical Region Laterality Modality Head Computed Tomogra phy 09/13/2024 7:09 PM NONPROFIT MANAGER Impressions 09/13/2024 7:57 PM NONPROFIT MANAGER IMPRESSION: 1.No acute intracranial hemorrhage, midline shift, or significant mass effect. 2.No acute facial bone fractures identified. 3.No evidence of acute fracture in the cervical spine. 4.There is a prominent left thyroid nodule. A nonemergent thyroid ultrasound is recommended for further evaluation. > Dictated by Ming Fair MD (Blasting Helper) Giles Moore MD have personally reviewed and interpreted this examination/study. > Interpreting Provider: Giles Moya MD on 09/13/2024 7:57 PM Narrative 09/13/2024 7:57 PM NONPROFIT MANAGER PROCEDURE: CT HEAD WO CONTRAST, CT CERVICAL SPINE WO CONTRAST, CT FACIAL BONES WO CONTRAST, DATE/TIME OF EXAM: 09/13/2024 7:21 PM, LOCATION [facility] INDICATION: W19.XXXA: Fall, initial encounter S00.03XA: Contusion of scalp, initial encounter H53.9: Vision changes EXAMINATION: 1. Computed tomography (CT) of the head without contrast 2. CT of the maxillofacial bones, orbits, and paranasal sinuses without contrast 3. CT of the cervical spine without contrast ADDITIONAL CLINICAL INFORMATION: Ordering Provider Reason For Exam: R/O ICH (accession [id number]), r/o frx (accession [id number]), r/o frx (accession [id number]) TECHNIQUE: CT of the head, cervical spine, [...] DATE/TIME OF EXAM: 09/13/2024 7:21 PM, LOCATION [facility] INDICATION: W19.XXXA: Fall, initial encounter S00.03XA: Contusion of scalp, initial encounter H53.9: Vision changes EXAMINATION: 1. Computed tomography (CT) of the head without contrast 2. CT of the maxillofacial bones, orbits, and paranasal sinuses without contrast 3. CT of the cervical spine without contrast ADDITIONAL CLINICAL INFORMATION: Ordering Provider Reason For Exam: R/O ICH (accession [id number]), r/ofrx (accession [id number]), r/o frx (accession [id number]) TECHNIQUE: CT of the head, cervical spine, [...] evaluation. > Dictated by Ming Fair MD (Blasting Helper) IGiles MD have personally reviewed and interpretedthis examination/study. > Interpreting Provider: Giles Moya MD on 09/13/2024 7:57 PM Silvina Galo PA-C CT ORDERABLES * PT-INR [facility] (09/13/2024 5:59 PM NONPROFIT MANAGER) Only the most recent of2 resultswithin the time period is included. PT 12.7 12.1 - 14.8 Seconds 09/13/2024 6:26 PM NONPROFIT MANAGER [facility] INR 1.0 See Comment 09/13/2024 6:26 PM [facility] Comment:The suggested therap eutic range for standard coumadin (warfarin) therapy is an INR of 2.0-3.0. For high-risk patients (Mechanical Mitral Valve Prosthesis, etc.), the suggested prophylactic therapeutic range is an INR of 2.5-3.5. Blood BLOOD SPECIMEN / Unknown Venipuncture / Unknown 09/13/2024 5:59 PM NONPROFIT MANAGER 09/13/2024 6:03 PM NONPROFIT MANAGER Silvina Galo PA-C LAB - COAGULATION ORDERABLES [facility] [address] [place] [address], [facility] [phone] * (ABNORMAL) CBC W AUTO DIFFERENTIAL (09/13/2024 5:59 PM NONPROFIT MANAGER) Only the most recent of4 resultswithin the time period is included. WBC 8.9 4.0 - 10.7 x10E9/L 09/13/2024 6:09 PM [facility] RBC Count 3.99 3.90 - 5.20 x10E12/L 09/13/2024 6:09 PM [facility] Hemoglobin 11.7(L) 11.9 - 15.8 g/dL 09/13/2024 6:09 PM [facility] Hematocrit 36.5 34.8 - 46.1 % 09/13/2024 6:09 PM [facility] MCV 91.5 80.0 - 98.0 fL 09/13/2024 6:09 PM [facility] MCH 29.3 26.7 - 33.6 pg 09/13/2024 6:09 PM [facility] MCHC 32.1 31.7 - 36.3 g/dL 09/13/2024 6:09 PM [facility] RDW-CV 18.1(H) 11.3 - 14.8 % 09/13/2024 6:09 PM [facility] Platelet Count 388 150 - 420 x10E9/L 09/13/2024 6:09 PM [facility] MPV 10.3 7.8 - 11.4 fL 09/13/2024 6:09 PM [facility] Neutrophil % 67.7 41.0 - 74.0 % 09/13/2024 6:09 PM [facility] Lymphocyte % 19.6 17.0 - 47.0 % 09/13/2024 6:09 PM [facility] Monocyte % 7.7 3.0 - 11.0 % 09/13/2024 6:09 PM [facility] Eosinophil % 3.6 0.0 - 7.0 % 09/13/2024 6:09 PM [facility] Basophil % 0.7 0.0 - 1.6 % 09/13/2024 6:09 PM [facility] Immature Granulocytes % 0.7 0.0 - 1.0 % 09/13/2024 6:09 PM [facility] Neutrophil Absolute 6.00 1.60 - 7.50 x10E9/L 09/13/2024 6:09 PM [facility] Lymphocyte Absolute 1.74 1.00 - 4.40 x10E9/L 09/13/2024 6:09 PM [facility] Monocyte Absolute 0.68 0.15 - 1.00 x10E9/L 09/13/2024 6:09 PM [facility] Eosinophil Absolute 0.32 0.00 - 0.60 x10E9/L 09/13/2024 6:09 PM [facility] Basophil Absolute 0.06 0.00 - 0.13 x10E9/L 09/13/2024 6:09 PM [facility] Blood BLOOD SPECIMEN / Unknown Venipuncture / Unknown 09/13/2024 5:59 PM NONPROFIT MANAGER 09/13/2024 6:04 PM NONPROFIT MANAGER Silvina Galo PA-C LAB - HEMATOLOGY O RDERABLES [facility] [address] [place] [address], [facility] [phone] * (ABNORMAL) COMPREHENSIVE METABOLIC PANEL (09/13/2024 5:59 PM NONPROFIT MANAGER) Only the most recent of3 resultswithin the time period is included. BUN 36(H) 7 - 26 mg/dL 09/13/2024 6:34 PM [facility] Creatinine 1.39(H) 0.56 - 0.96 mg/dL 09/13/2024 6:34 PM [facility] Sodium 142 136 - 145 mmol/L 09/13/2024 6:34 PM [facility] Potassium 3.9 3.5 - 4.5 mmol/L 09/13/2024 6:34 PM [facility] Chloride 106 98 - 107 mmol/L 09/13/2024 6:34 PM [facility] CO2 24 22 - 29 mmol/L 09/13/2024 6:34 PM [facility] Glucose 156(H) 70 - 99 mg/dL 09/13/2024 6:34 PM [facility] Calcium 9.3 8.4 - 10.2 mg/dL 09/13/2024 6:34 PM [facility] Protein Total 6.6 6.0 - 8.3 g/dL 09/13/2024 6:34 PM [facility] Albumin 3.1(L) 3.4 - 5.0 g/dL 09/13/2024 6:34 PM [facility] Bilirubin Total 0.7 0.2 - 1.2 mg/dL 09/13/2024 6:34 PM [facility] Alkaline Phosphatase 78 40 - 150 U/L 09/13/2024 6:34 PM [facility] ALT 95(H) 5 - 55 U/L 09/13/2024 6:34 PM [facility] AST 35(H) 5 - 34 U/L 09/13/2024 6:34 PM [facility] Anion Gap 12 6 - 16 09/13/2024 6:34 PM [facility] BUN/Creatinine Ratio 26(H) 7 - 23 09/13/2024 6:34 PM [facility] Osmolality Calculated 306(H) 275 - 295 mOsm/kg 09/13/2024 6:34 PM [facility] Albumin/Globulin Ratio 0.9(L) 1.1 - 2.3 09/13/2024 6:34 PM [facility] eGFR by CKD-EPI 39(L) >=90 mL/min/1.7 3 m2 09/13/2024 6:34 PM NONPROFIT MANAGER [facility] Blood BLOOD SPECIMEN / Unknown Venipuncture / Unknown 09/13/2024 5:59 PM NONPROFIT MANAGER 09/13/2024 6:04 PM NONPROFIT MANAGER Silvina Galo PA-C LAB - CHEMISTRY OR DERABLES Performing Organization Address City/[facility]/ZIP Co de Phone Number [address] [address], [facility] [phone] * (ABNORMAL) PTT [facility] (05/05/2023 7:38 AM CDT) Only the most recent of5 resultswithin the time period is included. APTT 154.7(HH) 23.0 - 38.4 Seconds 05/05/2023 9:07 AM CDT [facility] Comment:Suggested therapeuti c range for full dose I.V. unfractionated heparin therapy for venous thromboembolism is 71 to 109 seconds. Blood BLOOD SPECIMEN / Unknown Lab Venipuncture / Unknown 05/05/2023 7:38 AM CDT 05/05/2023 8:21 AM CDT Dakotah Sheffield MD LAB - COAGULATION OR DERABLES Performing Organization Address City/[facility]/ZIP Co de Phone Number [address] [address], [facility] [phone] * (ABNORMAL) RENAL FUNCTION PANEL (05/05/2023 7:38 AM CDT) BUN 31(H) 7 - 26 mg/dL 05/05/2023 8:52 AM CDT [facility] Creatinine 1.63(H) 0.56 - 0.96 mg/dL 05/05/2023 8:52 AM CDT [facility] Sodium 139 136 - 145 mmol/L 05/05/2023 8:52 AM CDT [facility] Potassium 4.0 3.5 - 4.5 mmol/L 05/05/2023 8:52 AM CDT [facility] Chloride 102 98 - 107 mmol/L 05/05/2023 8:52 AM [facility] CO2 28 22 - 29 mmol/L 05/05/2023 8:52 AM [facility] Glucose 148(H) 70 - 115 mg/dL 05/05/2023 8:52 AM [facility] Albumin 2.8(L) 3.4 - 5.0 g/dL 05/05/2023 8:52 AM [facility] Calcium 9.1 8.4 - 10.2 mg/dL 05/05/2023 8:52 AM [facility] Phosphorus 4.2 2.9 - 5.1 mg/dL 05/05/2023 8:52 AM [facility] Anion Gap 13 8 - 18 05/05/2023 8:52 AM [facility] BUN/Creatinine Ratio 19 7 - 23 05/05/2023 8:52 AM [facility] Osmolality Calculated 297 270 - 300 mOsm/kg 05/05/2023 8:52 AM [facility] eGFR by CKD-EPI 33(L) >=90 mL/min/1.7 3 m2 05/05/2023 8:52 AM [facility] Blood BLOOD SPECIMEN / Unknown Lab Venipuncture / Unknown 05/05/2023 7:38 AM CDT 05/05/2023 8:21 AM CDT Dakotah Sheffield MD LAB - CHEMISTRY LAKSHMI GRAF [facility] Organization Address City/State/ZIP Co de Phone Number [facility] [address] [place] [phone], [facility] [phone] * (ABNORMAL) TROPONIN-I HIGH SENSITIVE (05/05/2023 12:57 AM CDT) Only the most recent of11 resultswithin the time period is included. Troponin I High Sensitive 141(H) <=14 ng/L 05/05/2023 1:58 AM [facility] Blood BLOOD SPECIMEN / Unknown Lab Venipuncture / Unknown 05/05/2023 12:57 AM CDT 05/05/2023 1:25 AM CDT Tyron Valdez MD LAB - CHEMISTRY LAKSHMI GRAF Performing Organization Address City/[facility]/ZIP Co de Phone Number [address] [address], [facility] [phone] * (ABNORMAL) TSH REFLEX FREE T4 (05/04/2023 4:06 AM CDT) TSH 0.285(L) 0.350 - 4.940 uIU/mL 05/04/2023 6:10 AM CDT [facility] Blood BLOOD SPECIMEN / Unknown Lab Venipuncture / Unknown 05/04/2023 4:06 AM CDT 05/04/2023 5:24 AM CDT Ru Pena MD LAB - CHEMISTRY YOVANY MORALES Performing Organization Address [facility] Co de Phone Number [address] [address], [facility] [phone] * (ABNORMAL) HEMOGLOBIN A1C (05/04/2023 4:06 AM CDT) Hemoglobin A1c 7.8(H) <=5.6 % 05/04/2023 2:37 PM CDT [facility] Estimated Average Glucose 177 mg/dL 05/04/2023 2:37 PM CDT [facility] Comment: HbA1c Interpretation: Normal : < 5.7% Pre-diabetes: 5.7-6.4% Diabetes: Equal to or greater than 6.5% Test results diagnostic of diabetes should be repeated for confirmation. Treatment target values recommended by ADA and other clinical organizations should be used to evaluate metabolic control in patients. Reference: [place] Diabetes Association, Standards of Care in Diabetes [...] Pena MD LAB - CHEMISTRY ORD ERABLES [facility] [address] [place] [address], [facility] [phone] * (ABNORMAL) B-TYPE NATRIURETIC PEPTIDE (05/04/2023 4:06 AM CDT) Only the most recent of2 resultswithin the time period is included. BNP 758(H) <100 pg/mL 05/04/2023 5:57 AM CDT [facility] Comment: A decision threshold of 100 pg/mL has been demonstrated to provide the maximal combination of sensitivity, specificity and predictive value for the diagnosis of congestive heart failure (CHF). Virtually all patients with no evidence of CHF have BNP values less than 100 pg/mL. A BNP value greater than 100 pg/mL is consistent with the diagnosis of CHF in the appropriate clinical setting. In a study of 693 patients (male and female) with diagnosed CHF, the following values were determined based on the NYHA functional classification system: NYHA Functional Class Mean Valule (pg/mL) % >100 pg/mL I 320 58.1 II 432 73.0 III 656 79.0 IV 1635 98.3 Blood BLOOD SPECIMEN / Unknown Lab Venipuncture / Unknown 05/04/2023 4:06 AM CDT 05/04/2023 5:24 AM CDT Ru Pena MD LAB - CHEMISTRY ORD ERABLES [facility] [address] [place] [address], [place] [phone] * T4 FREE (05/04/2023 4:06 AM CDT) T4 Free 1.4 0.7 - 1.5 ng/dL 05/04/2023 6:43 AM CDT [facility] Blood BLOOD SPECIMEN / Unknown Lab Venipuncture / Unknown 05/04/2023 4:06 AM CDT 05/04/2023 5:24 AM CDT Ru Pena MD LAB - CHEMISTRY ORD ERABLES [facility] [address] [place] [address], [place] [phone] * BLOOD TYPE VERIFICATION (05/03/2023 11:42 PM CDT) ABO Rh B POS 05/04/2023 1:2 7 AM CDT [facility] Blood Bank BLOOD SPECIMEN / Unknown Lab Venipuncture / Unknown 05/03/2023 11:42 PM CDT 05/04/2023 12:00 AM CDT Elvi Landa MD LAB - BLOOD BANK ORD ERABLES [facility] [place] [address], [place] [phone] * CT ANGIO AORTA FOR DISSECTION (05/03/2023 [...] AM Narrative 05/03/2023 10:20 AM CDT PROCEDURE: CT ANGIO AORTA FOR DISSECTION, DATE/TIME OF EXAM: 05/03/2023 4:16 AM, LOCATION [facility] INDICATION: R06.02: SOB (shortness of breath) ADDITIONAL [...] DATE/TIME OF EXAM: 05/03/2023 4:16 AM, LOCATION [facility] INDICATION: R06.02: SOB (shortness of breath) ADDITIONAL [...] Charles Carson MD on 05/03/2023 10:20 AM Ru Pena [...] > Dictated by Iraj Moss MD, MD (md do resident urgent care). I, Katy Lima MD have personally reviewed and interpreted this examination/study. > Interpreting Provider: Katy Lima MD on 05/03/2023 2:23 PM Narrative 05/03/2023 2:23 PM CDT PROCEDURE: CT ANGIO NECK, DATE/TIME OF EXAM: 05/03/2023 4:16 AM, LOCATION [facility] INDICATION: R06.02: SOB (shortness of breath) ADDITIONAL CLINICAL INFORMATION: Ordering Provider Reason For Exam: postop L carotid stenosis, concern for hematoma COMPARISON: [...] DATE/TIME OF EXAM: 05/03/2023 4:16 AM, LOCATION [facility] INDICATION: R06.02: SOB (shortness of breath) ADDITIONAL [...] > Dictated by Iraj Moss MD, MD (md do resident urgent care). I, Katy Lima MD have personally reviewed and interpreted this examination/study. > Interpreting Provider: Katy Lima MD on 05/03/2023 2:[address] MD [address] ORDERABLES * XR CHEST 1VW PORTABLE (05/03/2023 1:38 AM CDT) Anatomical Region Laterality Modality Chest Radiographic Aide ging 05/03/2023 1:40 AM CDT Narrative 05/03/2023 6:35 AM CDT PROCEDURE: XR CHEST 1VW PORTABLE, DATE/TIME OF EXAM: 05/03/2023 1:39 AM, LOCATION [facility] INDICATION: R06.02: SOB (shortness of breath) ADDITIONAL [...] abnormalities. Report dictated by Iraj Moss MD, (md do resident urgent care). I, Ryan Wilkins MD have personally reviewed and interpreted this examination/study. > Interpreting Provider: Ryan Wilkins MD on 05/03/2023 6:35 AM Procedure Note Ryan Wilkins MD - 05/03/2023 PROCEDURE: XR CHEST 1VW PORTABLE, DATE/TIME OF EXAM: 05/03/2023 1:39 AM, LOCATION [facility] INDICATION: R06.02: SOB (shortness of breath) ADDITIONAL [...] abnormalities. Report dictated by Iraj Moss MD, (md do resident urgent care). I, Ryan Wilkins MD have personally reviewed and interpreted this examination/study. > Interpreting Provider: Ryan Wilkins MD on 05/03/2023 6:35AM Ru Pena MD DIAGNOSTIC IMAGING ORDERABLES * EKG 12-LEAD (05/03/2023 1:29 AM CDT) Ventricular Rate 93 BPM [facility] Atrial Rate 93 BPM [facility] P-R Interval 162 ms [facility] QRS Duration ms 144 ms [facility] Q-T Interval ms 398 ms [facility] QTC Calculation (Bezet) 494 ms [facility] Calculated P [place] 81 degrees SL MUSE Calculated R [place] -36 degrees SL MUSE Calculated T [place] 89 degrees [facility] Interpretation EKG NORMAL SINUS RHYTHM LEFT AXIS DEVIATION NON-SPECIFIC INTRA-VENTRIC ULAR CONDUCTION DELAY ABNORMAL ECG NO PREVIOUS ECGS AVAILABLE Confirmed by LUIS CARLOS CROFT, WAYLONLEON ([id number]) on 05/06/2023 8:46:32 PM [facility] 05/03/2023 1:29 AM CDT 05/06/2023 8:46 PM CDT Ru Pena MD ECG ORDERABLES Performing Organization Address [facility] Co de Phone Number [facility] * LIPASE BLOOD (05/03/2023 1:21 AM CDT) [facility] Lipase 10 8 - 78 U/L 05/03/2023 1:56 AM CDT [facility] Blood BLOOD SPECIMEN / Unknown Venipuncture / Unknown 05/03/2023 1:21 AM CDT 05/03/2023 1:31 AM CDT Narrative [facility] - 05/03/2023 1:56 AM CDT Lipase results from the [employer] Al[employer] analyzer may not be comparable with other methodologies. Ru Pena MD LAB - CHEMISTRY ORD ERABLES [facility] [address] [place] [address], [facility] [phone] * TYPE + SCREEN PANEL (05/03/2023 1:16 AM CDT) Antibody Screen NEG 2:12 AM CDT [facility] ABO Rh B POS 05/03/2023 2:12 AM CDT [facility] Blood Bank BLOOD SPECIMEN / Unknown Venipuncture / Unknown 05/03/2023 1:16 AM CDT 05/03/2023 1:34 AM CDT Ru Pena MD LAB - BLOOD BANK OR DERABLES Performing Organization Address [facility]/ZIP Co de Phone Number [facility] [address] [place] [address], [facility] [phone] Care Teams Glass Tinter Relationship Specialty Start Date End Date Neftali Torres MD [address] [place] [address] PCP - General 06/05/16
--- OUTSIDE RECORDS SUMMARY | 2024-11-13 11:13 | XMS_ITS | Clinical Summary ---
Author Organization [facility] Address [address] [place] [address] Care Team Providers Care Flare Stitcher Name Role Phone Neftali Torres MD Primary Care Provider [phone] Source Comments [facility],non-owned Affiliates and Associated Physician Practices is amultiple site organization consisting of ambulatory clinics and hospital sitesin [place], [place], [place] and [place]. This disclosure is being madepursuant to the Care Everywhere program and may not contain all information available regarding this patient. Last updated 18.[facility] Allergies Active Allergy Reactions Criticality Noted Date [...] Team Description 09/22/2024 Telephone Transitional Care at [address] [address] Brooklyn Polk, home office representative 09/21/2024 Telephone Transitional Care at [address] [address] Alyssa Gill RNhome office representative 09/15/2024 Travel 09/13/2024 10:41 PM [facility] - 09/19/2024 1:48 PM [facility] Hospital Encounter [facility] [address] [place] [address] Lam David MD Bhalla, Kishley, MD [place], [...] and heating? Not hard at all 09/15/2024 [facility] of Occupat ional Health - Occupational Stress [...] place to sleep or slept in a detention (including now)? No 05/03/2023 Housing Stability Vital Sign Answer Sawyer e Recorded In the last 12 months, was t here a time when you were not able to pay the mortgage or rent on time? No 09/15/2024 In the past 12 months, how m any times have you moved where you were living? 0 09/15/2024 At any time in the past 12 m [facility], were you homeless or living in a detention (including now)? No 09/15/2024 Sex and Gender Information Value Date Recorded Sex Assigned at Not on file Gender Identity Not on file Sexual Orientation Not on file Last Filed Vital Signs Vital Sign Reading Time Taken Comments Blood Pressure 154/83 09/19/2024 12:11 PM [facility] Pulse 86 09/19/2024 12:11 PM [facility] Temperature 37 C (98.6 F) 09/19/2024 12:11 PM [facility] Respiratory Rate 14 09/19/2024 8:30 AM [facility] Oxygen Saturation 94% 09/19/2024 12:11 PM [facility] Inhaled Oxygen Concentration - - Weight 61.7 kg (136 lb) 09/19/2024 4:00 AM [facility] Height 152.4 cm (5') 09/15/2024 1:00 AM [facility] Body Mass Index 26.56 09/15/2024 1:00 AM [facility] Plan of Treatment Health Maintenance Due Date Last Done Comments BONE DENSITY TESTING 1945 HEPATITIS C SCREENING 12/14/1965 DTAP/TDAP/TD VACCINES (1 - Tdap) 12/18/1966 PNEUMOCOCCAL VACCINE 50+ (1 of 2 - PCV) 12/18/1966 DIABETES-STATIN 1987 ZOSTER VACCINE (1 of 2) 12/18/1997 Respiratory Syncytial Virus (RSV) Vaccine Pt: or over 60 yrs (1 - 1-dose 75+ series) 12/18/2022 COVID-19 VACCINE ( - season) 2024 09/21/2021, 01/20/2021, 12/23/2020 INFLUENZA VACCINE (#1) 2024 , 06/12/2021, 07/17/2019, Additional history exists DIABETES RETINOPATHY SCREENING 09/19/2024 DIABETES-FOOT EXAM WITH MONOFILAMENT 09/19/2024 DIABETES-HGB A1C 09/19/2024 05/04/2023, , 11/25/2021 DEPRESSION SCREENING 09/30/2024 DIABETES - URINE PROTEIN SCREENING 09/30/2024 MEDICARE AWV CALENDAR YEAR 2024 DIABETES-SERUM CREATININE 09/19/20252023, 09/18/2024, [...] POINT OF CARE Routine 09/19/2024 12:12 PM [facility] GLUCOSE - POINT OF CARE Routine 09/19/2024 8:37 AM [facility] BASIC METABOLIC PANEL (CALCIUM TOTAL) AM Draw 09/19/2024 12:36 AM [facility] MAGNESIUM BLOOD Routine 09/19/2024 12:36 AM [facility] PHOSPHORUS BLOOD Routine 09/19/2024 12:3 6 AM [facility] CBC W/O DIFFERENTIAL AM Draw 09/19/2024 12:36 AM [facility] GLUCOSE - POINT OF CARE Routine 09/18/2024 8:32 PM [facility] GLUCOSE - POINT OF CARE Routine 09/18/2024 5:44 PM [facility] GLUCOSE - POINT OF CARE Routine 09/18/2024 1:14 PM [facility] GLUCOSE - POINT OF CARE Routine 09/18/2024 9:08 AM [facility] BASIC METABOLIC PANEL (CALCIUM TOTAL) AM Draw 09/18/2024 1:04 AM [facility] MAGNESIUM BLOOD Routine 09/18/2024 1:04 AM [facility] PHOSPHORUS BLOOD Routine 09/18/2024 1:04 AM [facility] CBC W/O DIFFERENTIAL AM Draw 09/18/2024 1:04 AM [facility] GLUCOSE - POINT OF CARE Routine 09/17/2024 8:50 PM [facility] GLUCOSE - POINT OF CARE Routine 09/17/2024 8:18 PM [facility] GLUCOSE - POINT OF CARE Routine 09/17/2024 5:24 PM [facility] GLUCOSE - POINT OF CARE Routine 09/17/2024 12:19 PM [facility] GLUCOSE - POINT OF CARE Routine 09/17/2024 8:23 AM [facility] BASIC METABOLIC PANEL (CALCIUM TOTAL) AM Draw 09/17/2024 12:46 AM [facility] MAGNESIUM BLOOD Routine 09/17/2024 12:46 AM [facility] PHOSPHORUS BLOOD Routine 09/17/2024 12:4 6 AM [facility] CBC W/O DIFFERENTIAL AM Draw 09/17/2024 12:46 AM [facility] GLUCOSE - POINT OF CARE Routine 09/16/2024 8:28 PM [facility] GLUCOSE - POINT OF CARE Routine 09/16/2024 6:05 PM [facility] GLUCOSE - POINT OF CARE Routine 09/16/2024 12:13 PM [facility] GLUCOSE - POINT OF CARE Routine 09/16/2024 8:17 AM [facility] BASIC METABOLIC PANEL (CALCIUM TOTAL) AM Draw 09/16/2024 12:56 AM [facility] MAGNESIUM BLOOD Routine 09/16/2024 12:56 AM [facility] PHOSPHORUS BLOOD Routine 09/16/2024 12:5 6 AM [facility] CBC W/O DIFFERENTIAL AM Draw 09/16/2024 12:55 AM [facility] GLUCOSE - POINT OF CARE Routine 09/15/2024 8:01 PM [facility] GLUCOSE - POINT OF CARE Routine 09/15/2024 5:40 PM [facility] GLUCOSE - POINT OF CARE Routine 09/15/2024 12:03 PM [facility] GLUCOSE - POINT OF CARE Routine 09/15/2024 8:43 AM [facility] BASIC METABOLIC PANEL (CALCIUM TOTAL) AM Draw 09/15/2024 8:35 AM [facility] MAGNESIUM BLOOD Routine 09/15/2024 8:35 AM [facility] PHOSPHORUS BLOOD Routine 09/15/2024 8:35 AM [facility] CBC W/O DIFFERENTIAL AM Draw 09/15/2024 8:14 AM [facility] GLUCOSE - POINT OF CARE Routine 09/14/2024 11:02 PM [facility] GLUCOSE - POINT OF CARE Routine 09/14/2024 6:43 PM [facility] XR FEMUR LEFT 2VW Routine 09/14/2024 5:3 8 PM [facility] Fall, initial encounter GLUCOSE - POINT OF CARE Routine 09/14/2024 2:07 PM [facility] CARDIAC EKG ORDER 09/14/2024 1:1 [address] [facility] [address] HIP LEFT WO CONTRAST STAT 09/14/2024 8:46 AM [facility] Fall, initial encounter GLUCOSE - POINT OF CARE Routine 09/14/2024 8:21 AM [facility] GLUCOSE - POINT OF CARE Routine 09/14/2024 4:56 AM [facility] VITAMIN D 25-HYDROXY Routine 09/14/2024 2:15 AM [facility] TROPONIN-I HIGH SENSITIVE REFLEX 1HOUR Timed 09/14/2024 2:15 AM [facility] XR PELVIS W LEFT HIP 2VW STAT 09/14/2024 1:44 AM [facility] Fall, initial encounter GLUCOSE - POINT OF CARE Routine 09/14/2024 1:38 AM [facility] TROPONIN-I HIGH SENSITIVE BASELINE + 1HR STAT 09/14/2024 12:23 AM [facility] GLUCOSE - POINT OF CARE Routine 09/13/2024 9:[address] [facility] [address] FACIAL BONES WO CONTRAST STAT 09/13/2024 7:15 PM [facility] Fall, initial encounter Contusion of scalp, initial encounter CT CERVICAL SPINE WO CONTRAST STAT 09/13/2024 7:15 PM [facility] Fall, initial encounter Contusion of scalp, initial encounter CT HEAD WO CONTRAST STAT 09/13/2024 7 :15 PM [facility] Fall, initial encounter Contusion of scalp, initial encounter PT-INR [facility] STAT 09/13/2024 5:59 PM [facility] COMPREHENSIVE METABOLIC PANEL STAT 09/13/2024 5:59 PM [facility] CBC W AUTO DIFFERENTIAL STAT 09/13/2024 5:59 PM [facility] HEMOGLOBIN A1C Routine 05/04/2023 4:06 AM CDT from Last 3 Months or Most Recently Relevant to Health Maintenance Results * (ABNORMAL) GLUCOSE - POINT OF CARE (09/19/2024 12:12 PM [facility]) Only the most recent of26 resultswithin the time period is included. [facility] Glucose WB/POC 328(H) 70 - 99 mg/dL 09/19/2024 12:17 PM [facility] Specimen Type Cap Fingerstick 2023 12:17 PM [facility] Blood BLOOD SPECIMEN / Unknown 09/19/2024 12:12 PM [facility] 09/19/2024 12:17 PM [facility] Serena Marquez MD LAB - POINT OF CARE ORDERABLES Performing Organization Address City/State/[facility] Co de Phone Number [facility] [address] [place] [address], [facility] [phone] * (ABNORMAL) CBC W/O DIFFERENTIAL (09/19/2024 12:36 AM [facility]) Only the most recent of5 resultswithin the time period is included. [facility] WBC 7.0 4.0 - 10.7 x10E9/L 09/19/2024 1:05 AM [facility] RBC Count 3.75(L) 3.90 - 5.20 x10E12/L 09/19/2024 1:05 AM [facility] Hemoglobin 10.9(L) 11.9 - 15.8 g/dL 09/19/2024 1:05 AM [facility] Hematocrit 34.4(L) 34.8 - 46.1 % 09/19/2024 1:05 AM [facility] MCV 91.7 80.0 - 98.0 fL 09/19/2024 1:05 AM [facility] MCH 29.1 26.7 - 33.6 pg 09/19/2024 1:05 AM [facility] MCHC 31.7 31.7 - 36.3 g/dL 09/19/2024 1:05 AM [facility] RDW-CV 17.2(H) 11.3 - 14.8 % 09/19/2024 1:05 AM [facility] Platelet Count 387 150 - 420 x10E9/L 09/19/2024 1:05 AM [facility] MPV 10.5 7.8 - 11.4 fL 09/19/2024 1:05 AM [facility] Blood BLOOD SPECIMEN / Unknown Lab Venipuncture / Unknown 09/19/2024 12:36 AM [facility] 09/19/2024 12:53 AM [facility] Any Mccoy PA-C LAB - HEMATOLOG Y ORDERABLES [facility] [address] [place] [phone], [facility] [phone] * (ABNORMAL) BASIC METABOLIC PANEL (CALCIUM TOTAL) (09/19/2024 12:36 AM [facility]) Only the most recent of5 resultswithin the time period is included. BUN 61(H) 7 - 26 mg/dL 09/19/2024 1:18 AM [facility] Creatinine 1.31(H) 0.56 - 0.96 mg/dL 09/19/2024 1:18 AM [facility] Sodium 136 136 - 145 mmol/L 09/19/2024 1:18 AM [facility] Potassium 5.0(H) 3.5 - 4.5 mmol/L 09/19/2024 1:18 AM [facility] Chloride 100 98 - 107 mmol/L 09/19/2024 1:18 AM [facility] CO2 30(H) 22 - 29 mmol/L 09/19/2024 1:18 AM [facility] Glucose 268(H) 70 - 99 mg/dL 09/19/2024 1:18 AM [facility] Calcium 9.2 8.4 - 10.2 mg/dL 09/19/2024 1:18 AM [facility] Anion Gap 6 6 - 16 09/19/2024 1:18 AM [facility] BUN/Creatinine Ratio 47(H) 7 - 23 09/19/2024 1:18 AM [facility] Osmolality Calculated 309(H) 275 - 295 mOsm/kg 09/19/2024 1:18 AM [facility] eGFR by CKD-EPI 42(L) >=90 mL/min/1.7 3 m2 09/19/2024 1:18 AM [facility] Blood BLOOD SPECIMEN / Unknown Lab Venipuncture / Unknown 09/19/2024 12:36 AM [facility] 09/19/2024 12:53 AM [facility] Any Deterding PA-C LAB - CHEMISTRY ORDERABLES [address] [address], [facility] [phone] * PHOSPHORUS BLOOD (09/19/2024 12:36 AM [facility]) Only the most recent of5 resultswithin the time period is included. Phosphorus 3.9 2.9 - 5.1 mg/dL 09/19/2024 1:18 AM [facility] Blood BLOOD SPECIMEN / Unknown Lab Venipuncture / Unknown 09/19/2024 12:36 AM [facility] 09/19/2024 12:53 AM [facility] Any Deterding PA-C LAB - CHEMISTRY ORDERABLES [address] [address], [facility] [phone] * MAGNESIUM BLOOD (09/19/2024 12:36 AM [facility]) Only the most recent of5 resultswithin the time period is included. Magnesium 2.0 1.6 - 2.6 mg/dL 09/19/2024 1:18 AM [facility] Blood BLOOD SPECIMEN / Unknown Lab Venipuncture / Unknown 09/19/2024 12:36 AM [facility] 09/19/2024 12:53 AM [facility] Any Mccoy PA-Fred LAB - CHEMISTRY ORDERABLES Performing Organization Address City/State/[facility] Co de Phone Number [facility] [address] [place] [address], [facility] [phone] * XR Femur Left 2Vw (09/14/2024 5:38 PM [facility]) Anatomical Region Laterality Modality Lower Extremity Digital Radiogra phy 09/14/2024 5:13 PM [facility] Narrative 09/14/2024 8:44 PM [facility] PROCEDURE: XR FEMUR LEFT 2VW, DATE/TIME OF EXAM: 09/14/2024 4:46 PM, LOCATION [facility] INDICATION: W19.XXXA: Fall, initial encounter COMPARISON: CT left hip and extrarenal pelvis with left hip 09/14/2024. FINDINGS/IMPRESSION: Redemonstration of age indeterminate fracture of the femoral neck/intertrochanteric region. Postsurgical changes of left hip fixation with intramedullary stephie and screw. The alignment appears normal. Atherosclerotic calcifications of the arteries. Report dictated by Ming Fair MD, (Meat Grinder). IArmando MD have personally reviewed and interpreted this examination/study. > Interpreting Provider: Armando Obando MD on 09/14/2024 8:44 PM Procedure Note Armando Obando MD - 09/14/2024 PROCEDURE: XR FEMUR LEFT 2VW, DATE/TIME OF EXAM: 09/14/2024 4:46 PM, LOCATION [facility] INDICATION: W19.XXXA: Fall, initial encounter COMPARISON: CT left hip and extrarenal pelvis with left hip 09/14/2024. FINDINGS/IMPRESSION: Redemonstration of age indeterminate fracture of the femoral neck/intertrochanteric region. Postsurgical changes of left hip fixation with intramedullary stephie and screw. The alignment appears normal. Atherosclerotic calcifications of the arteries. Report dictated by Ming Fair MD, (Meat Grinder). Armando Moore MD have personally reviewed and interpreted this examination/study. > Interpreting Provider: Armando Obando MD on 09/14/2024 8:44 PM Ki Beckford III, MD DIAGNOSTIC IMAG ING ORDERABLES * CARDIAC EKG ORDER (09/14/2024 1:13 PM [facility]) Narrative 09/14/2024 1:13 PM [facility] Ordered by an unspecified provider. Scanned Document CARDIAC SERVICES ORD ERABLES * CT Hip Left Wo Contrast (09/14/2024 8:46 AM [facility]) Anatomical Region Laterality Modality Lower Extremity Computed Tomogra phy 09/14/2024 11:3 4 AM [facility] Impressions 09/14/2024 12:02 PM [facility] IMPRESSION: 1.Age-indeterminate comminuted fracture of the femoral neck and mildly displaced fracture of the proximal femoral shaft. Subacute postsurgical changes of left hip fixation with intramedullary stephie and screw. Recommend direct comparison with prior imaging. 2.Likely seroma (or a Tyler-Christie lesion) in the lateral left superior lower extremity measuring up to 4.9 cm. Report dictated by Gia Sargent MD (president financial institution). Manisha Moore MD have personally reviewed and interpreted this examination/study. > Interpreting Provider: Manisha Singer MD on 09/14/2024 12:02 PM Narrative 09/14/2024 12:02 PM [facility] PROCEDURE: CT HIP LEFT WO CONTRAST DATE/TIME [...] cm. Report dictated by Gia Sargent MD (president financial institution). Manisha Moore MD have personally reviewed and interpreted this examination/study. > Interpreting Provider: Manisha Singer MD on 09/14/2024 12:02 PM Any Mccoy PA-C CT ORDERABLES * (ABNORMAL) TROPONIN-I HIGH SENSITIVE REFLEX 1HOUR (09/14/2024 2:15 AM [facility]) Troponin I High Sensitive 32(H) <=14 ng/L 09/14/2024 3:38 AM [facility] Delta Troponin I HS 09/14/2024 3:38 AM [facility] Comment:Delta value intentio stanford not calculated. Baseline to 1 hour specimen collection interval exceeded. Blood BLOOD SPECIMEN / Unknown Venipuncture / Unknown 09/14/2024 2:15 AM [facility] 09/14/2024 2:59 AM [facility] Lam David MD LAB - CHEMISTRY LAKSHMI GRAF [facility] Organization Address City/State/[facility] Co de Phone Number [address] [address], [facility] [phone] * VITAMIN D 25-HYDROXY (09/14/2024 2:15 AM [facility]) Vitamin D, 25 Hydroxy 73.0 30.0 - 80.0 ng/mL 09/14/2024 3:12 PM [facility] Comment: The recommendations for 25-Hydroxy Vitamin D [...] Unknown Venipuncture / Unknown 09/14/2024 2:15 AM [facility] 09/14/2024 2:59 AM [facility] Mercedes Boateng PA-C LAB - CHEMIS TRY ORDERABLES [facility] [address] [place] [address], [facility] [phone] * XR Pelvis W Left Hip 2Vw (09/14/2024 1:44 AM [facility]) Anatomical Region Laterality Modality Pelvis Digital Radiogra phy 09/14/2024 2:48 AM [facility] Narrative 09/14/2024 6:03 AM [facility] EXAMINATION: XR PELVIS W LEFT HIP 2VW DATE/TIME OF EXAM: 09/14/2024 1:54 AM, LOCATION [facility] HISTORY: W19.XXXA: Fall, initial encounter Fracture COMPARISON: [...] hip. Report dictated by Ze Gama MD (president financial institution). IArmando MD have personally reviewed and interpreted this examination/study. > Interpreting Provider: Armando Obando MD on 09/14/2024 6:03 AM Procedure Note Armando Obando MD - 09/14/2024 EXAMINATION: XR PELVIS W LEFT HIP 2VW DATE/TIME OF EXAM: 09/14/2024 1:54 AM, LOCATION [facility] HISTORY: W19.XXXA: Fall, initial encounter Fracture COMPARISON: [...] hip. Report dictated by Ze Gama MD (president financial institution). Armando Moore MD have personally reviewed and interpreted this examination/study. > Interpreting Provider: Armando Obando MD on 09/14/2024 6:03 AM Lam David MD DIAGNOSTIC IMAGING O RDERABLES * (ABNORMAL) TROPONIN-I HIGH SENSITIVE BASELINE + 1HR (09/14/2024 12:23 AM [facility]) Troponin I High Sensitive 32(H) <=14 ng/L 09/14/2024 1:02 AM [facility] Blood BLOOD SPECIMEN / Unknown Venipuncture / Unknown 09/14/2024 12:23 AM [facility] 09/14/2024 12:30 AM [facility] Lam David MD LAB - CHEMISTRY [facility]GOOD [facility] [address] [place] [phone], [facility] [phone] * CT Cervical Spine Wo Contrast (09/13/2024 7:15 PM [facility]) Anatomical Region Laterality Modality Spine Computed Tomogra phy 09/13/2024 7:09 PM [facility] Impressions 09/13/2024 7:57 PM [facility] IMPRESSION: 1.No acute intracranial hemorrhage, midline shift, or significant mass effect. 2.No acute facial bone fractures identified. 3.No evidence of acute fracture in the cervical spine. 4.There is a prominent left thyroid nodule. A nonemergent thyroid ultrasound is recommended for further evaluation. > Dictated by Ming Fair MD (Meat Grinder) Giles Moore MD have personally reviewed and interpreted this examination/study. > Interpreting Provider: Giles Moya MD on 09/13/2024 7:57 PM Narrative 09/13/2024 7:57 PM [facility] PROCEDURE: CT HEAD WO CONTRAST, CT CERVICAL SPINE WO CONTRAST, CT FACIAL BONES WO CONTRAST, DATE/TIME OF EXAM: 09/13/2024 7:21 PM, LOCATION [facility] INDICATION: W19.XXXA: Fall, initial encounter S00.03XA: Contusion of scalp, initial encounter H53.9: Vision changes EXAMINATION: 1. Computed tomography (CT) of the head without contrast 2. CT of the maxillofacial bones, orbits, and paranasal sinuses without contrast 3. CT of the cervical spine without contrast ADDITIONAL CLINICAL INFORMATION: Ordering Provider Reason For Exam: R/O ICH (accession [id number]), r/o frx (accession [id number]), r/o frx (accession [id number]) TECHNIQUE: CT of the head, cervical spine, [...] No. Midline shift: No. Procedure Note Giles Myoa MD - 09/13/2024 PROCEDURE: CT HEAD WO CONTRAST, CT CERVICAL SPINE WO CONTRAST, CTFACIAL BONES WO CONTRAST, DATE/TIME OF EXAM: 09/13/2024 7:21 PM, LOCATION [facility] INDICATION: W19.XXXA: Fall, initial encounter S00.03XA: Contusion of scalp, initial encounter H53.9: Vision changes EXAMINATION: 1. Computed tomography (CT) of the head without contrast 2. CT of the maxillofacial bones, orbits, and paranasal sinuses without contrast 3. CT of the cervical spine without contrast ADDITIONAL CLINICAL INFORMATION: Ordering Provider Reason For Exam: R/O ICH (accession [id number]), r/ofrx (accession [id number]), r/o frx (accession [id number]) TECHNIQUE: CT of the head, cervical spine, [...] evaluation. > Dictated by Ming Fair MD (Meat Grinder) IGiles MD have personally reviewed and interpretedthis examination/study. > Interpreting Provider: Giles Moya MD on 09/13/2024 7:57 PM Silvina Galo PA-C CT ORDERABLES * CT Facial Bones Wo Contrast (09/13/2024 7:15 PM [facility]) Anatomical Region Laterality Modality Head Computed Tomogra phy 09/13/2024 7:09 PM [facility] Impressions 09/13/2024 7:57 PM [facility] IMPRESSION: 1.No acute intracranial hemorrhage, midline shift, or significant mass effect. 2.No acute facial bone fractures identified. 3.No evidence of acute fracture in the cervical spine. 4.There is a prominent left thyroid nodule. A nonemergent thyroid ultrasound is recommended for further evaluation. > Dictated by Ming Fair MD (Meat Grinder) I, Giles Moya MD have personally reviewed and interpreted this examination/study. > Interpreting Provider: Giles Moya MD on 09/13/2024 7:57 PM Narrative 09/13/2024 7:57 PM [facility] PROCEDURE: CT HEAD WO CONTRAST, CT CERVICAL SPINE WO CONTRAST, CT FACIAL BONES WO CONTRAST, DATE/TIME OF EXAM: 09/13/2024 7:21 PM, LOCATION [facility] INDICATION: W19.XXXA: Fall, initial encounter S00.03XA: Contusion of scalp, initial encounter H53.9: Vision changes EXAMINATION: 1. Computed tomography (CT) of the head without contrast 2. CT of the maxillofacial bones, orbits, and paranasal sinuses without contrast 3. CT of the cervical spine without contrast ADDITIONAL CLINICAL INFORMATION: Ordering Provider Reason For Exam: R/O ICH (accession [id number]), r/o frx (accession [id number]), r/o frx (accession [id number]) TECHNIQUE: CT of the head, cervical spine, [...] DATE/TIME OF EXAM: 09/13/2024 7:21 PM, LOCATION [facility] INDICATION: W19.XXXA: Fall, initial encounter S00.03XA: Contusion of scalp, initial encounter H53.9: Vision changes EXAMINATION: 1. Computed tomography (CT) of the head without contrast 2. CT of the maxillofacial bones, orbits, and paranasal sinuses without contrast 3. CT of the cervical spine without contrast ADDITIONAL CLINICAL INFORMATION: Ordering Provider Reason For Exam: R/O ICH (accession [id number]), r/ofrx (accession [id number]), r/o frx (accession [id number]) TECHNIQUE: CT of the head, cervical spine, [...] evaluation. > Dictated by Ming Fair MD (Meat Grinder) Giles Moore MD have personally reviewed and interpretedthis examination/study. > Interpreting Provider: Giles Moya MD on 09/13/2024 7:57 PM Silvina Galo PA-C CT ORDERABLES * CT Head Wo Contrast (09/13/2024 7:15 PM [facility]) Anatomical Region Laterality Modality Head Computed Tomogra phy 09/13/2024 7:09 PM [facility] Impressions 09/13/2024 7:57 PM [facility] IMPRESSION: 1.No acute intracranial hemorrhage, midline shift, or significant mass effect. 2.No acute facial bone fractures identified. 3.No evidence of acute fracture in the cervical spine. 4.There is a prominent left thyroid nodule. A nonemergent thyroid ultrasound is recommended for further evaluation. > Dictated by Ming Fair MD (Me[employer]inder) I, Giles Moya MD have personally reviewed and interpreted this examination/study. > Interpreting Provider: Giles Moya MD on 09/13/2024 7:57 PM Narrative 09/13/2024 7:57 PM [facility] PROCEDURE: CT HEAD WO CONTRAST, CT CERVICAL SPINE WO CONTRAST, CT FACIAL BONES WO CONTRAST, DATE/TIME OF EXAM: 09/13/2024 7:21 PM, LOCATION [facility] INDICATION: W19.XXXA: Fall, initial encounter S00.03XA: Contusion of scalp, initial encounter H53.9: Vision changes EXAMINATION: 1. Computed tomography (CT) of the head without contrast 2. CT of the maxillofacial bones, orbits, and paranasal sinuses without contrast 3. CT of the cervical spine without contrast ADDITIONAL CLINICAL INFORMATION: Ordering Provider Reason For Exam: R/O ICH (accession [id number]), r/o frx (accession [id number]), r/o frx (accession [id number]) TECHNIQUE: CT of the head, cervical spine, [...] DATE/TIME OF EXAM: 09/13/2024 7:21 PM, LOCATION [facility] INDICATION: W19.XXXA: Fall, initial encounter S00.03XA: Contusion of scalp, initial encounter H53.9: Vision changes EXAMINATION: 1. Computed tomography (CT) of the head without contrast 2. CT of the maxillofacial bones, orbits, and paranasal sinuses without contrast 3. CT of the cervical spine without contrast ADDITIONAL CLINICAL INFORMATION: Ordering Provider Reason For Exam: R/O ICH (accession [id number]), r/ofrx (accession [id number]), r/o frx (accession [id number]) TECHNIQUE: CT of the head, cervical spine, [...] evaluation. > Dictated by Ming Fair MD (Meat Grinder) I, Giles Moya MD have personally reviewed and interpretedthis examination/study. > Interpreting Provider: Giles Moya MD on 09/13/2024 7:57 PM Silvina Galo PA-C CT ORDERABLES * [facility] (09/13/2024 5:59 PM GUNNER'S MATE M) Pathologist [facility] PT 12.7 12.1 - 14.8 Seconds 09/13/2024 6:26 PM [facility] INR 1.0 See Comment 09/13/2024 6:26 PM [facility] Comment:The suggested therap eutic range for standard coumadin (warfarin) therapy is an INR of 2.0-3.0. For high-risk patients (Mechanical Mitral Valve Prosthesis, etc.), the suggested prophylactic therapeutic range is an INR of 2.5-3.5. Blood BLOOD SPECIMEN / Unknown Venipuncture / Unknown 09/13/2024 5:59 PM GUNNER'S MATE M 09/13/2024 6:03 PM [facility] MATE M Silvina Galo PA-C LAB - COAGULATION ORDERABLES [address] [address] [phone] * (ABNORMAL) CBC W AUTO DIFFERENTIAL (09/13/2024 5:59 PM GUNNER'S MATE M) WBC 8.9 4.0 - 10.7 x10E9/L 09/13/2024 6:09 PM [facility] RBC Count 3.99 3.90 - 5.20 x10E12/L 09/13/2024 6:09 PM [facility] Hemoglobin 11.7(L) 11.9 - 15.8 g/dL 09/13/2024 6:09 PM [facility] Hematocrit 36.5 34.8 - 46.1 % 09/13/2024 6:09 PM [facility] MCV 91.5 80.0 - 98.0 fL 09/13/2024 6:09 PM [facility] MCH 29.3 26.7 - 33.6 pg 09/13/2024 6:09 PM [facility] MCHC 32.1 31.7 - 36.3 g/dL 09/13/2024 6:09 PM [facility] RDW-CV 18.1(H) 11.3 - 14.8 % 09/13/2024 6:09 PM [facility] Platelet Count 388 150 - 420 x10E9/L 09/13/2024 6:09 PM [facility] MPV 10.3 7.8 - 11.4 fL 09/13/2024 6:09 PM [facility] Neutrophil % 67.7 41.0 - 74.0 % 09/13/2024 6:09 PM [facility] Lymphocyte % 19.6 17.0 - 47.0 % 09/13/2024 6:09 PM [facility] Monocyte % 7.7 3.0 - 11.0 % 09/13/2024 6:09 PM [facility] Eosinophil % 3.6 0.0 - 7.0 % 09/13/2024 6:09 PM [facility] Basophil % 0.7 0.0 - 1.6 % 09/13/2024 6:09 PM [facility] Immature Granulocytes % 0.7 0.0 - 1.0 % 09/13/2024 6:09 PM [facility] Neutrophil Absolute 6.00 1.60 - 7.50 x10E9/L 09/13/2024 6:09 PM [facility] Lymphocyte Absolute 1.74 1.00 - 4.40 x10E9/L 09/13/2024 6:09 PM [facility] Monocyte Absolute 0.68 0.15 - 1.00 x10E9/L 09/13/2024 6:09 PM [facility] Eosinophil Absolute 0.32 0.00 - 0.60 x10E9/L 09/13/2024 6:09 PM [facility] Basophil Absolute 0.06 0.00 - 0.13 x10E9/L 09/13/2024 6:09 PM [facility] Blood BLOOD SPECIMEN / Unknown Venipuncture / Unknown 09/13/2024 5:59 PM [facility]S MATE M 09/13/2024 6:04 PM [facility] MATE M Silvina Galo PA-C LAB - HEMATOLOGY O RDERABLES [facility] [address] [place] [address], [facility] [phone] * (ABNORMAL) COMPREHENSIVE METABOLIC PANEL (09/13/2024 5:59 PM G[facility]'S MATE M) BUN 36(H) 7 - 26 mg/dL 09/13/2024 6:34 PM [facility] Creatinine 1.39(H) 0.56 - 0.96 mg/dL 09/13/2024 6:34 PM [facility] Sodium 142 136 - 145 mmol/L 09/13/2024 6:34 PM [facility] Potassium 3.9 3.5 - 4.5 mmol/L 09/13/2024 6:34 PM [facility] Chloride 106 98 - 107 mmol/L 09/13/2024 6:34 PM [facility] CO2 24 22 - 29 mmol/L 09/13/2024 6:34 PM [facility] Glucose 156(H) 70 - 99 mg/dL 09/13/2024 6:34 PM [facility] Calcium 9.3 8.4 - 10.2 mg/dL 09/13/2024 6:34 PM [facility] Protein Total 6.6 6.0 - 8.3 g/dL 09/13/2024 6:34 PM [facility] Albumin 3.1(L) 3.4 - 5.0 g/dL 09/13/2024 6:34 PM [facility] Bilirubin Total 0.7 0.2 - 1.2 mg/dL 09/13/2024 6:34 PM [facility] Alkaline Phosphatase 78 40 - 150 U/L 09/13/2024 6:34 PM [facility] ALT 95(H) 5 - 55 U/L 09/13/2024 6:34 PM [facility] AST 35(H) 5 - 34 U/L 09/13/2024 6:34 PM [facility] Anion Gap 12 6 - 16 09/13/2024 6:34 PM [facility] BUN/Creatinine Ratio 26(H) 7 - 23 09/13/2024 6:34 PM [facility] Osmolality Calculated 306(H) 275 - 295 mOsm/kg 09/13/2024 6:34 PM [facility] Albumin/Globulin Ratio 0.9(L) 1.1 - 2.3 09/13/2024 6:34 PM [facility] eGFR by CKD-EPI 39(L) >=90 mL/min/1.7 3 m2 09/13/2024 6:34 PM [facility] Blood BLOOD SPECIMEN / Unknown Venipuncture / Unknown 09/13/2024 5:59 PM [facility] MATE M 09/13/2024 6:04 PM [facility] Silvina Galo PA-C LAB - CHEMISTRY OR DERABLES [facility] [address] [place] [address], [facility] [phone] * (ABNORMAL) HEMOGLOBIN A1C (05/04/2023 4:06 AM CDT) Hemoglobin A1c 7.8(H) <=5.6 % 05/04/2023 2:37 PM CDT [facility] Estimated Average Glucose 177 mg/dL 05/04/2023 2:37 PM T [facility] Comment: HbA1c Interpretation: Normal : < 5.7% Pre-diabetes: 5.7-6.4% Diabetes: Equal to or greater than 6.5% Test results diagnostic of diabetes should be repeated for confirmation. Treatment target values recommended by ADA and other clinical organizations should be used to evaluate metabolic control in patients. Reference: [place] Diabetes Association, Standards of Care in Diabetes [...] Pena MD LAB - CHEMISTRY ORD ERABLES [facility] [address] [place] [address], [facility] [phone] from Last 3 Months or Most Recently Relevant to Health Maintenance Advance Directives * Full Code (Latest Code Status on File) Date Activated Date Inactivated Comments 09/14/2024 3:25 AM 09/19/2024 2:53 PM * Full Code Date Activated Date Inactivated Comments 05/03/2023 5:30 AM 05/05/2023 3:48 PM Care Teams Flare Stitcher Relationship Specialty Start Date End Date Neftali Torres MD [address] [place] [address] PCP - General 06/05/16
--- OUTSIDE RECORDS SUMMARY | 2024-11-13 11:13 | XMS_ITS | Clinical Summary ---
Author Organization [facility] Address [address] [place] [id number] Care Team Providers Care Planning Intern Name Role Phone Unavailable Primary Care Provider [...] - 1-dose 75+ series) 12/18/2022 COVID-19 Vaccine (2023-2 5 season) 2024 Influenza Adult (#1) 2024 [...]
--- OUTSIDE RECORDS SUMMARY | 2024-11-13 11:13 | XMS_ITS | Clinical Summary ---
Author Organization [facility] Address [address] [address] Care Team Providers Care Pilot Safety Inspector Name Role Phone Neftali Torres MD Primary Care Provider [phone] Allergies Active Allergy Reactions Criticality Noted Date [...] Encounters Date Type Department Care Team Description 11/13/2024 Refill [facility] [place] [address] [place] [address] Srinivas Horn MD 10/22/2024 External Device Data STL ABSTRACTION Provider, Abstract 10/21/2024 External Device Data [facility] ABSTRACTION Provider, Abstract 10/20/2024 External Device Data [facility] ABSTRACTION Provider, Abstract 10/13/2024 External Device Data ST[facility] ABSTRACTION Provider, Abstract 08/19/2024 Refill [facility] [place] [address] Srinivas Horn MD 08/18/2024 Orders Only [facility] [place] [address] Srinivas Horn MD 08/14/2024 Telephone [facility] [place] [address] Srinivas Horn MD lab work for appointment 08/13/2024 Orders Only [facility] [place] [address] [place] [id number] Srinivas Horn MD from Last 3 Months [...] 65 02/11/2024 11:44 AM CDT Temperature 36.2 C (97.1 F) 02/11/2024 11:44 AM CDT Respiratory Rate 14 02/11/2024 11:44 AM CDT [...] 11/04/20232022, 04/25/2023, 11/25/2021 INFLUENZA VACCINE (#1) 2024 [place] Prev entative Visit/Annual Wellness Visit 09/30/2024 Procedures Procedure Name Priority Date/Time Associated Diagnosis Comments HOMOCYSTEINE Routine 08/14/2024 10:41 AM HYDRAULIC DESIGN ENGINEER from Last 3 Months Results * HOMOCYSTEINE (08/14/2024 10:41 AM HYDRAULIC DESIGN ENGINEER) Blood Srinivas Horn MD CHEMISTRY ORDERABLES Final Resu lt from Last 3 Months Insurance [facility] DUAL COMPLETE HMO SNP [id number] Care Teams Pilot Safety Inspector Relationship Specialty Start Date End Date Neftali Torres MD [address] [place] [address] PCP - General Internal Medicine 02/23/22
--- OUTSIDE RECORDS SUMMARY | 2024-11-13 11:14 | XMS_ITS | Clinical Summary ---
Author Organization [facility] Address [address] [place] [address] Care Team Providers Care Quality Facilitator Name Role Phone Neftali Torres MD Primary Care Provider [phone] Brian Carson Nae DO Unavailable [phone] Allergies Active Allergy Reactions Criticality Noted Date [...] 600 mg by mouth daily Active omega 4-hwi-czj-fish oil 1,200 (144-216) mg capsule Take 1 [...] duplex. Assessment & Plan (11/27/2023 9:44 AM CONFERENCE INTERPRETER): Left carotid continues to be patent with [...] effects. Assessment & Plan (11/29/2021 10:53 AM CONFERENCE INTERPRETER): - Bupriopion daily - Plan to titrate with PCP Hematoma 11/26/2021 Assessment & Plan (11/27/2021 12:46 PM CONFERENCE INTERPRETER): Hematoma of R buttock extending into inner [...] 11/25/2021 Assessment & Plan (11/28/2021 11:24 AM CONFERENCE INTERPRETER): At OSH INR was 24.1 on 11/24/21 [...] (heart failure with re duced ejection fraction) ([facility]) 11/24/2021 Assessment & Plan (03/14/2023 9:03 AM CDT): Stable continue Lasix 40 mg. Assessment & Plan (11/27/2021 3:22 PM CONFERENCE INTERPRETER): Reportedly LVEF 40% (last echo on file is in 2015). On home metop 50 daily, spironolactone 12.5 (?) daily, furosemide 40mg daily. -Received records from her sewing techniques demonstrator: Last echo Sep- EF 55-60%, mild LVH, [...] list of meds- she last saw her sewing techniques demonstrator 1.5 yrs ago and she has ED visits since then; might need to get records from PCP - BMP daily T2DM (type 2 diabetes mellitus) 11/24/2021 Assessment & Plan (11/26/2021 1:25 PM CONFERENCE INTERPRETER): Reportedly on long-acting insulin and glimepride 2mg [...] mg. Assessment & Plan (11/27/2021 12:42 PM CONFERENCE INTERPRETER): Home meds amlodipine 5, others per HFrEF. - Held all antihypertensives until active bleeding ruled out - Normotensive, holding meds EXCEPT lasix which we will restart today at a low dose. SKYE (acute kidney injury) 11/24/2021 Assessment & Plan (11/27/2021 3:22 PM CONFERENCE INTERPRETER): OSH Cr 1.99 from reported b/l 1.5. Unclear if this is SKYE, or SKYE on CKD. - Unknown baseline Creat -Records from It Portfolio Manager do not have baseline creat but do have dx of Stage 3 CKD - Cr 1.6 here -> then downtrended to 1.4 after gentle IVF on 11/25 - Leg swelling, restart lasix at low dose of 20 mg daily - CTM, avoid nephrotoxins Acute blood loss anemia 11/24/2021 Assessment & Plan (11/29/2021 10:49 AM CONFERENCE INTERPRETER): B/l Hgb reportedly ~11, at OSH was [...] PCP. 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 Brian Carson ([facility]) to find out the indication for AC- he says he last saw her 1.5 yr ago, indication is 'PE', but Xarelto was started a few months ago at an ER visit or by PCP. - PCP confirmed history of PE in September of 2019 Vascular calcification 03/13/2016 Carotid bruit 03/13/2016 Chronic coronary artery disease 03/13/2016 Assessment & Plan (11/24/2021 11:10 PM CONFERENCE INTERPRETER): S/p DICK 2013. On atorva 80, per patient has been off ASA. - Continue atorva 80 Ischemic cardiomyopathy 03/13/2016 Chronic systolic heart failure ([facility]) 016 Resolved Problems Problem Noted Date Diagnosed Date Resolved Date Hyperkalemia 11/24/2021 11/26/2021 Assessment & Plan (11/27/2021 12:43 PM CONFERENCE INTERPRETER): Reportedly 5.8 at OSH, s/p temporization. - K has not been elevated here. K is 4.3 today. Surgical History Surgery Date Site/Laterality Comments CHOLECYSTECTOMY 09/30/1971 - 09/29/1972 APPENDECTOMY HYSTERECTOMY CATARACT EXTRACTION, BILATERAL CARDIAC CATHETERIZATION 2013, 04/18/2023, 1 stent COLONOSCOPY HM MAMMOGRAPHY HM DEXA SCAN Medical History Medical History Date Comments CAD (coronary artery disease) HFrEF (heart failure with re duced ejection fraction) ([facility]) ([facility]) Type 2 diabetes mellitus ([facility]) Hypertension History of pulmonary embolus (PE) 11/24/2021 right side if lung CHF (congestive heart failure) ([facility]) ([facility]) History of IA (myocardial infarction) 2013 History of bronchitis History [...] often do you attend chur ch or sikhism services? Never 05/02/2023 Do you belong to any clubs o r organizations such as lutheran groups, unions, fraternal or athletic groups, or [...] place to sleep or slept in a longterm (including now)? No 05/02/2023 Housing Stability Vital [...] on file Legal Sex Female 8:29 AM CONFERENCE INTERPRETER Gender Identity Not on file Sexual Orientation Not on file Obstetrics History Last Filed Vital Signs Vital Sign Reading Time Taken Comments Blood Pressure 142/81 06/10/2024 9:32 AM CDT Pulse 70 06/10/2024 9:32 AM CDT Temperature 37 C (98.6 F) 05/02/2023 12:19 PM CDT Respiratory Rate 16 [...] history exists Medical Devices Implanted Type Area Assembler Bonding Device Identifier Shelf Expiration Date Model / Serial / Lot Stent Heart [employer] Patch Vascuguard 0.88cm [id number] - [id number] Implanted:Qty: 1 on 04/30/2023 by Ebenezer Pop MD at [facility] Left: Neck [employer] Theo [id number] 12/05/2023 [id number] / / [id number] Procedures Procedure Name Priority Date/Time Associated Diagnosis Comments EGFR Routine 05/02/2023 7:06 AM CDT HEMOGLOBIN A1C Routine 04/25/2023 11:47 AM CDT Type 2 diabetes mellitus without complication, with long-term current use of insulin (CMS/HCC) (HCC) LIPID PANEL Routine 11/24/2021 9:43 PM CONFERENCE INTERPRETER COLONOSCOPY REPORT 10/25/2016 from Last 3 Months or Most Recently Relevant to Health Maintenance Results * eGFR (05/02/2023 7:06 AM CDT) eGFR 47 mL/min/1. 73 m2 [facility] Comment: Interpretive Data Reference Interval Normal >/= 90 mL/min/1.73m2 Mildly decreased* 60 - 89 mL/min/1.73m2 Mildly to moderately decreased 45 - 59 mL/min/1.73m2 Moderately to severely decreased 30 - 44 mL/min/1.73m2 Severely decreased 15 - 29 mL/min/1.73m2 Kidney Failure < 15 mL/min/1.73m2 *Relative to young adult level Estimated glomerular [...] 7:06 AM CDT 05/02/2023 7:13 AM CDT Celina Vogt DO LAB BLOOD ORDERABLES Final Re sult [facility] [address] [facility] Department [place] [address] * (ABNORMAL) Hemoglobin A1c (04/25/2023 11:47 AM CDT) Hgb A1C 7.5(H) 4.0 - 5.6 % [facility] Estimated Average Glucose 169 mg/dL [facility] Comment: The ADA recommends reporting an estimated Average Glucose (eAG) with all Hemoglobin A1c results using the equation derived from a study of 507 normal and diabetic adults. Minority populations were underrepresented and children were not included. (Diabetes Care 31:1273-8148, 2008). The eAG is not equivalent to a fasting glucose. Blood 04/25/2023 11:4 7 AM CDT 04/25/2023 12:48 PM CDT us Ebenezer Pop MD LAB BLOOD ORDERABLES Final Resul t [facility] [address] [facility] Department [place] [address] * (ABNORMAL) Lipid panel (11/24/2021 9:43 PM CONFERENCE INTERPRETER) Cholesterol 126 30 - 199 mg/dL [facility] Comment: Interpretive Data Ages < or = 19 years Acceptable: <170 mg/dL Borderline high: 170-199 mg/dL High: >or= 200 mg/dL Ages > or = 20 years Desirable: <200 mg/dL Borderline high: 200-239 mg/dL High: >or= 240 mg/dL Literature References: 1. Expert Panel on Integrated Guidelines for Cardiovascular Health and Risk Reduction in Children and Adolescents. Pediatrics 2011;128:S213 2. NCEP Expert Panel. Circulation 2004;110:227 Current Interpretive Data was last revised on 2018. Triglycerides 243(H) <=149 mg/dL [facility] Comment: Interpretive Data Ages < or = 9 years Acceptable: <75 mg/dL Borderline high: 75-99 mg/dL High: >or= 100 mg/dL Ages 10 to 20 years Acceptable: <90 mg/dL Borderline high: 90-129 mg/dL High: >or= 130 mg/dL Ages > or = 20 years Desirable: <150 mg/dL Borderline high: 150-199 mg/dL High: 200-499 mg/dL Very high: >or= 499 mg/dL Literature References: 1. Expert Panel on Integrated Guidelines for Cardiovascular Health and Risk Reduction in Children and Adolescents. Pediatrics 2011;128:S213 2. NCEP Expert Panel. Circulation 2004;110:227 Current Interpretive Data was last revised on 2018. HDL 26(L) >=40 mg/dL [facility] Comment: Interpretive Data Ages < or = 19 years Acceptable: >45 mg/dL Borderline low: 40-45 mg/dL Low: <40 mg/dL Ages > or = 20 years Desirable: >or= 60 mg/dL Low: <40 mg/dL Literature References: 1. Expert Panel on Integrated Guidelines for Cardiovascular Health and Risk Reduction in Children and Adolescents. Pediatrics 2011;128:S213 2. NCEP Expert Panel. Circulation 2004;110:227 Current Interpretive Data was last revised on 2018. LDL, calculated 51 <=129 mg/dL [facility] Comment: Interpretive Data Ages < or = 19 years Acceptable: <110 mg/dL Borderline high: 110-129 mg/dL High: >or= 130 mg/dL Ages > or = 20 years Optimal: <100 mg/dL Near optimal: 100-129 mg/dL Borderline high: 130-159 mg/dL High: >160 mg/dL Literature References: 1. Expert Panel on Integrated Guidelines for Cardiovascular Health and Risk Reduction in Children and Adolescents. Pediatrics 2011;128:S213 2. NCEP Expert Panel. Circulation 2004;110:227 Current Interpretive Data was last revised on 2018. Non-HDL Cholesterol 100 mg/dL [facility] Comment: Interpretive Data Ages < or = 19 years Acceptable: <120 mg/dL Borderline high: 120-144 mg/dL High: >145 mg/dL Ages > or = 20 years When triglycerides are >200 mg/dL, Non-HDL cholesterol is a secondary target of therapy with treatment goals that are 30 mg/dL greater than the LDL cholesterol target. Literature References: 1. Expert Panel on Integrated Guidelines for Cardiovascular Health and Risk Reduction in Children and Adolescents. Pediatrics 2011;128:S213 2. NCEP Expert Panel. Circulation 2004;110:227 Current Interpretive Data was last revised on 2018. Chol/HDL ratio 5 [facility] Blood 11/24/2021 9:43 PM CONFERENCE INTERPRETER 11/24/2021 10:53 PM CONFERENCE INTERPRETER us Dahlia Moseley MD LAB BLOOD ORDERABLES Final Result [facility] Department [place] [address] * COLONOSCOPY REPORT (10/25/2016) Anatomical Region Laterality Modality Other Narrative 10/25/2016 Ordered by an unspecified provider. us Historical Provider MD GI PROCEDURE ORDERABLES F inal Result from Last 3 Months or Most Recently Relevant to Health Maintenance Insurance MEDICARE SOLUTIONS MEDICARE SOLUTIONS Advance Directives For more information, please contact: [phone] Documents on File Type Date Recorded Patient Rehanger Expl anation Power of Marketing Communication Manager 04/30/2023 7:55 AM * Full Code (Latest Code Status on File) Date Activated Date Inactivated Comments 04/30/2023 5:05 PM 05/02/2023 8:36 PM * Full Code Date Activated Date Inactivated Comments 11/24/2021 9:19 PM 11/29/2021 8:19 PM Care Teams Quality Facilitator Relationship Specialty Start Date End Date Neftali Torres MD PCP - General 01/18/17 Brian Carson DO [address] [place] [address] Referring Physician Cardiology 04/25/23
--- OUTSIDE RECORDS SUMMARY | 2024-11-13 11:14 | XMS_ITS | Referral Summary ---
Author Organization [facility] s Address [address] [place] [address] Care Team Providers Care Board Design Engineer Name Role Phone Neftali Torres MD Primary Care Provider [phone] Brian Carson Nae DO Unavailable [phone] Allergies Active Allergy Reactions Criticality Noted Date [...] 600 mg by mouth daily Active omega 6-kfz-ypp-fish oil 1,200 (144-216) mg capsule Take 1 [...] duplex. Assessment & Plan (11/27/2023 9:44 AM MAT MAKER): Left carotid continues to be patent with [...] effects. Assessment & Plan (11/29/2021 10:53 AM MAT MAKER): - Bupriopion daily - Plan to titrate with PCP Hematoma 11/26/2021 Assessment & Plan (11/27/2021 12:46 PM MAT MAKER): Hematoma of R buttock extending into inner [...] 11/25/2021 Assessment & Plan (11/28/2021 11:24 AM MAT MAKER): At OSH INR was 24.1 on 11/24/21 [...] (heart failure with re duced ejection fraction) ([facility]) 11/24/2021 Assessment & Plan (03/14/2023 9:03 AM CDT): Stable continue Lasix 40 mg. Assessment & Plan (11/27/2021 3:22 PM MAT MAKER): Reportedly LVEF 40% (last echo on file is in 2015). On home metop 50 daily, spironolactone 12.5 (?) daily, furosemide 40mg daily. -Received records from her site planner: Last echo Sep- EF 55-60%, mild LVH, [...] list of meds- she last saw her site planner 1.5 yrs ago and she has ED visits since then; might need to get records from PCP - BMP daily T2DM (type 2 diabetes mellitus) 11/24/2021 Assessment & Plan (11/26/2021 1:25 PM MAT MAKER): Reportedly on long-acting insulin and glimepride 2mg [...] mg. Assessment & Plan (11/27/2021 12:42 PM MAT MAKER): Home meds amlodipine 5, others per HFrEF. - Held all antihypertensives until active bleeding ruled out - Normotensive, holding meds EXCEPT lasix which we will restart today at a low dose. SKYE (acute kidney injury) 11/24/2021 Assessment & Plan (11/27/2021 3:22 PM MAT MAKER): OSH Cr 1.99 from reported b/l 1.5. Unclear if this is SKYE, or SKYE on CKD. - Unknown baseline Creat -Records from Ditch Worker do not have baseline creat but do have dx of Stage 3 CKD - Cr 1.6 here -> then downtrended to 1.4 after gentle IVF on 11/25 - Leg swelling, restart lasix at low dose of 20 mg daily - CTM, avoid nephrotoxins Acute blood loss anemia 11/24/2021 Assessment & Plan (11/29/2021 10:49 AM MAT MAKER): B/l Hgb reportedly ~11, at OSH was [...] PCP. Assessment & Plan (11/29/2021 10:50 AM MAT MAKER): H/o prior PE on chronic anticoagulation with [...] of Hb - Spoke to her outpatient Ditch Worker Dr. Brian Carson ([facility]) to find out the indication for AC- he says he last saw her 1.5 yr ago, indication is 'PE', but Xarelto was started a few months ago at an ER visit or by PCP. - PCP confirmed history of PE in September of 2019 Vascular calcification 03/13/2016 Carotid bruit 03/13/2016 Chronic coronary artery disease 03/13/2016 Assessment & Plan (11/24/2021 11:10 PM MAT MAKER): S/p DICK 2013. On atorva 80, per patient has been off ASA. - Continue atorva 80 Ischemic cardiomyopathy 03/13/2016 Chronic systolic heart failure (CMS/HCC) 016 Resolved Problems Problem Noted Date Diagnosed Date Resolved Date Hyperkalemia 11/24/2021 11/26/2021 Assessment & Plan (11/27/2021 12:43 PM MAT MAKER): Reportedly 5.8 at OSH, s/p temporization. - [...] often do you attend chur ch or orthodoxy services? Never 05/02/2023 Do you belong to any clubs o r organizations such as yazdanism groups, unions, fraternal or athletic groups, or [...] place to sleep or slept in a retirement (including now)? No 05/02/2023 Housing Stability Vital [...] on file Legal Sex Female 8:29 AM MAT MAKER Gender Identity Not on file Sexual Orientation [...] on file Medical Devices Implanted Type Area Configuration Technician Device Identifier Shelf Expiration Date Model / Serial / Lot Stent Heart Pllop.it Patch Vascuguard 0.88cm [id number] - [id number] Implanted:Qty: 1 on 04/30/2023 by Ebenezer Pop MD at [facility] Left: Neck [facility] [id number] 12/05/2023 [id number] / / [id number] Procedures Procedure Name Priority Date/Time Associated Diagnosis Comments EGFR Routine 05/02/2023 7:06 AM CDT HEMOGLOBIN A1C Routine 04/25/2023 11:47 AM CDT Type 2 diabetes mellitus without complication, with long-term current use of insulin ([facility]) (HCC) LIPID PANEL Routine 11/24/2021 9:43 PM MAT MAKER COLONOSCOPY REPORT 10/25/2016 from Last 3 Months [...] DO LAB BLOOD ORDERABLES [facility] [address] [facility] Department of Laboratories [place], [place] [id number] * (ABNORMAL) Hemoglobin A1c (04/25/2023 11:47 AM CDT) Hgb A1C 7.5(H) 4.0 - 5.6 % [facility] Estimated Average Glucose 169 mg/dL [facility] Comment: The ADA recommends reporting an estimated Average Glucose (eAG) with all Hemoglobin A1c results using the equation derived from a study of 507 normal and diabetic adults. Minority populations were underrepresented and children were not included. (Diabetes Care 31:7865-0019, 2008). The eAG is not equivalent to a fasting glucose. Blood 04/25/2023 11:4 7 AM CDT 04/25/2023 12:48 PM CDT Ebenezer Pop MD LAB BLOOD ORDERABLES Final Resul t [facility] [address] [facility] Department [place] [address] * (ABNORMAL) Lipid panel (11/24/2021 9:43 PM MAT MAKER) Cholesterol 126 30 - 199 mg/dL [facility] Comment: Interpretive Data Ages < or [...] revised on 2018. Triglycerides 243(H) <=149 mg/dL [facility] Comment: Interpretive Data Ages < or [...] revised on 2018. HDL 26(L) >=40 mg/dL [facility] Comment: Interpretive Data Ages < or [...] on 2018. LDL, calculated 51 <=129 mg/dL [facility] Comment: Interpretive Data Ages < or [...] revised on 2018. Non-HDL Cholesterol 100 mg/dL [facility] Comment: Interpretive Data Ages < or [...] last revised on 2018. Chol/HDL ratio 5 [facility] Blood 11/24/2021 9:43 PM MAT MAKER 11/24/2021 10:53 PM MAT MAKER us Dahlia Moseley MD LAB BLOOD ORDERABLES Final Result [facility] Department [place] [address] * COLONOSCOPY REPORT (10/25/2016) Anatomical Region Laterality Modality Other Narrative 10/25/2016 Ordered by an unspecified provider. us Historical Provider GI PROCEDURE ORDERABLES F inal Result from Last 3 Months or Most Recently Relevant to Health Maintenance Insurance [facility] Address: [address] [place] [phone] MEDICARE SOLUTIONS [facility] Address: [address] [address] [place] [address] [facility] Address: [address] [address] [place] [address] MEDICARE SOLUTIONS [facility] Address: [address] [address] [place] [address] Advance Directives For more information, please contact: [phone] Documents on File Type Date Recorded Patient Dental Cream Maker Expl anation Power of Pizza Delivery Driver 04/30/2023 7:55 AM * Full Code (Latest Code Status on File) Date Activated Date Inactivated Comments 04/30/2023 5:05 PM 05/02/2023 8:36 PM * Full Code Date Activated Date Inactivated Comments 11/24/2021 9:19 PM 11/29/2021 8:19 PM Care Teams Board Design Engineer Relationship Specialty Start Date End Date Neftali Torres MD PCP - General 01/18/17 Brian Carson DO [address] [facility] [address] [place] [address] Referring Physician Cardiology 04/25/23
--- OUTSIDE RECORDS SUMMARY | 2024-11-13 11:14 | XMS_ITS | Encounter Summary ---
Author Organization [facility] Address [address] [place] [address] Care Team Providers Care Refining Supervisor Name Role Phone Neftali Torres MD Primary Care Provider [phone] Reason for Visit * Reason Comments Med Refill Encounter Details Date Type Department Care Team (Late st Contact Info) Description 11/13/2024 Refill [facility] [place] [facility] - [place] [address] [facility] [address] [place] [address] Srinivas Horn MD [address] [facility] [address] [place] [address] Social History Tobacco Use Types Packs/Day Years Used Date Smoking Tobacco: Never Smokeless Tobacco: Never Alcohol Use Standard Drinks/Week Comments Never 0 (1 standard drink = 0.6 oz pur e alcohol) Comments Unknown Sex and Gender Information Value Date Recorded Sex Assigned at Not on file Legal Sex Female 2:41 PM CDT Gender Identity Not on file Sexual Orientation Not on file documented as of this encounter Plan of Treatment Not on file documented as of this encounter Visit Diagnoses Not on filedocumented in this encounter Care Teams Refining Supervisor Relationship Specialty Start Date End Date Neftali Torres MD [address] [place] [address] PCP - General Internal Medicine 02/23/22 documented as of this encounter
--- OUTSIDE RECORDS SUMMARY | 2024-11-13 11:14 | XMS_ITS | Data Portability ---
Author Organization [facility], Main Office Address [address] [place] [address] Care Team Providers Care Livestock Speculator Name Role Phone JULIO FLORENCE Referring Provider TAWANDA CANNON Primary Care Provider [phone] Assessment No assessment recorded. Plan of Treatment Reminders Order Date Submit Date Provider Last Modified By Organization Details Last Modified Time Details Appointments None recorded. Lab None recorded. Referral endocrinolo gy referral - also had recent finding of left adrenal adenoma from CT scan in May 072022 023 Yin Jackson MD, [address],, [address], [address], 3 12:21:26 Procedures None recorded. Surgeries None recorded. Imaging None recorded. Medication Orders Jardiance 25 mg tablet 2022 023 [facility] [address] [place], [address], 3 12:03:55 Patient TargetsNo targets recorded. Patient [...] Organization Details Recorded Time Benign essential hypertension 5137016 Active Not Available [facility] 3 20:31:15 Hypoglycemia 330564675 Active Not Available [facility] 3 20:31:15 Type 2 diabetes mellitus without complication 581413643 Active Not Available [facility] 3 20:31:15 Vitamin D deficiency 15238078 Active Not Available [facility] 3 20:31:15 Depressive disorder 29862943 Active 2021 Not Available [facility] 3 20:31:15 Sinusitis 71405788 Active Not Available [facility] 3 20:31:15 Dyslipidemia 878214930 Active 2021 Not Available [facility] 3 20:31:15 Osteoarthriti s 707857584 Active Not Available [facility] 3 20:31:15 Uncontrolled type 2 diabetes mellitus 933624666 Active Not Available [facility] 3 20:31:15 Anxiety 38034367 Active Not Available [facility] 3 20:31:15 Adrenal adenoma 412870457 Active 2022 Jessica Zelaya MD [address] [place] [address], [address] , [facility] [employer] 3 13:34:42 Notes:Some problems listed i n Document: #[id number] could not be added to this patient's chart. Please review this document and add these problems to the patient's chart manually as needed. Problem Notes None recorded. Medical Equipment None Reported. Allergies Allergen ID Allergen Name Allergen Category Reaction Reaction Severity Criticality Documentation Date Start Date Code Code System Note Provider Name and Address Organization Details Recorded Time 47854 codeine medicatio n Not available Not available Not available 11/28/2022 2670 RxNorm Not Available [facility] 3 15:13:42 Medications Name Sig Start Date [...] Not Available Not Available No t Available Bytay BCise 2 mg/0.85 mL subcutaneou s auto-inject or Inject 2 mg every week by subcutane ous route at dinner for 90 days. 05/08 completed Not Available Not Available Not Available Eliquis DVT-PE Treatment 30-Day Starter 5 mg (74 [...] Available No t Available FreeStyle Anne-Marie 2 [place] USE DIRECTED active Not Available Not Available No t Available Vitals Date Recorded Body mass index (BMI) Body mass index (BMI) Body mass index (BMI) Body mass index [...] temperature Body weight Body weight Body weight Body weight Systolic blood pressure Diastolic blood pressure Systolic blood pressure Diastolic blood pressure Systolic blood pressure Diastolic blood pressure Systolic blood pressure Diastolic blood pressure Provider Name and Address Organization Details Last Updated DateTime 3 30 kg/m2 28.3 kg/m2 28.3 kg/m2 29.7 kg/m2 154.94 cm 154.94 cm 154.94 cm 154.94 cm 96 % 96 % 98 % 98 % 99 % 99 % 98 % 98 % 78 /min 67 /min 55 /min 68 /min 16 /min 17 /min 98.9 [degF] 97.7 [degF] 97.7 [degF] 97.8 [degF] 72 121.1 9 g 82665.8 6 g 33268.8 6 g 20914 g 140 mm[Hg] 72 mm[Hg] 120 mm[Hg] 70 mm[Hg] 140 mm[Hg] 60 mm[Hg] 128 mm[Hg] 74 mm[Hg] Not Available [facility] 3 15:12:20 Date Recorded Body height Body mass index (BMI) Body weight Heart rate Systolic blood pressure Diastolic blood pressure Provider Name and Address Organization Details Last Updated DateTime 3 154.94 cm 30 kg/m2 53579.4 7 g 85 /min 118 mm[Hg] 64 mm[Hg] Zaira [facility] [employer] [facility] 3 11:59:21 Social History Question Answer Notes LastModified by [employer] Details LastModified Time Tobacco Smoking Status Never Smoker Not Available [facility] 11/28/2022 15:12:00 What Is Your Level Of Alcohol Consumption? None [id number] Information not available 11/28/2022 Sex: Unknown Functional Status None recorded. Mental Status None recorded. Family History Nothing Reported. Medical History Condition Response DIABETES, TYPE Y HAVE YOU BEEN HOSPITALIZED OR SEEN IN [facility] ER IN THE PAST YEAR ? Y Gynecological HistoryNo gynecological history recorded. Obstetrics History GPAL:G 0 P 0 0 0 0 Immunizations Vaccine Type Date Status Note Provider Nam e and Address Organization Details Recorded Time Influenza, high-dose, trivalent, PF 4 completed Not Available [facility] 01/17/2023 20:31:15 Influenza, split virus, quadrivalent, PF 4 completed Not Available [facility] 01/17/2023 20:31:15 Pneumococcal conjugate PCV 13 4 completed Not Available [facility] 01/17/2023 20:31:15 Past Encounters Encounter ID Performer Location Encounter Start Date Encounter Closed Date Diagnosis/Indication Diagnosis SNOMED-CT Code Diagnosis ICD10 Code Diagnosis Note [id number] [facility] [address] [place] [address] 08/07/2021 00:00:00 08/07/2021 16:41:23 [id number] [facility] [address] [place], [place] [address] 01/30/2022 00:00:00 01/30/2022 15:35:12 [id number] [facility] [address] [place], [place] [address] 05/08/2022 00:00:00 05/08/2022 14:37:16 [id number] [facility] [address] [place], [place] [address] 11/22/2022 00:00:00 11/22/2022 22:11:12 [id number] Jessica Zelaya MD [facility] [address] [place], [place] [address] 05/10/2023 11:28:58 05/10/2023 12:21:26 Uncontrolled type 2 diabetes mellitus 111636978 E11.65 A1C not completed at [facility] - per log A1C likely 8% range- continue on januvia 25 mg a day and jardiance 25 mg daily as she is tolerating well. Agree with holding glimepirid e for now due to hypoglycem ia risk.Low nue on tresiba 16 units at bedtime and increase or decrease by 2 units every 3 days to maintain glucose of 90-130 mg/dL. refer to endocrinol ogy per patient request Adrenal adenoma [id number] D35.[address] abdomen from recent [facility] ation in April. Patient provided referral to [...] Sharma Member ID Guarantor Name 05/10/2023 1 [facility] (MEDICARE REPLACEMENT/A DVANTAGE - HMO) [id number] Tran Bryan [id number] Tran Bryan Notes Date Note Type Note [...] mg/dLdenies any hypoglycemia. Jessica Zelaya MD [address] [facility] [address], [place], [address], [place] [facility] [employer] 05/10/2023 13:35:42 OBGyn Episode No OBEpisode recorded.
--- OUTSIDE RECORDS SUMMARY | 2024-11-13 11:14 | XMS_ITS | Referral Summary ---
Author Organization [facility] Address [address] [place] [address] Care Team Providers Care Computer Training Specialist Name Role Phone Neftali Torres MD Primary Care Provider [phone] Source Comments [facility],non-[facility] and Associated Physician Practices is amultiple site organization consisting of ambulatory clinics and hospital sitesin [place], [place], [place] and [place]. This disclosure is being madepursuant to the Care Everywhere program and may not contain all information available regarding this patient. Last updated 18.[facility] Encounters Date Type Department Care Team Description 09/22/2024 Telephone Transitional Care at [address] [phone] Brooklyn Polk RN Transitional Care 09/21/2024 Telephone Transitional Care at [address] [phone] Alyssa Gill, internal control analyst 09/13/2024 10:41 PM GENERAL EDUCATION INSTRUCTOR - 09/19/2024 1:48 PM GENERAL EDUCATION INSTRUCTOR Hospital Encounter [facility] SHORT STAY UNIT [address] [place] [address] Lam David MD Bhalla, MD Shakeel Hardy [...] and heating? Not hard at all 09/15/2024 [facility] - Occupational Stress [...] place to sleep or slept in a skilled nursing (including now)? No 05/03/2023 Housing Stability Vital Sign Answer Sawyer e Recorded In the last 12 months, was t here a time when you were not able to pay the mortgage or rent on time? No 09/15/2024 In the past 12 months, how m any times have you moved where you were living? 0 09/15/2024 At any time in the past 12 m [facility], were you homeless or living in a skilled nursing (including now)? No 09/15/2024 Sex and Gender Information Value Date Recorded Sex Assigned at Not on file Gender Identity Not on file Sexual Orientation Not on file Last Filed Vital Signs Vital Sign Reading Time Taken Comments Blood Pressure 154/83 09/19/2024 12:11 PM GENERAL EDUCATION INSTRUCTOR Pulse 86 09/19/2024 12:11 PM GENERAL EDUCATION INSTRUCTOR Temperature 37 C (98.6 F) 09/19/2024 12:11 PM GENERAL EDUCATION INSTRUCTOR Respiratory Rate 14 09/19/2024 8:30 AM GENERAL EDUCATION INSTRUCTOR Oxygen Saturation 94% 09/19/2024 12:11 PM GENERAL EDUCATION INSTRUCTOR Inhaled Oxygen Concentration - - Weight 61.7 kg (136 lb) 09/19/2024 4:00 AM GENERAL EDUCATION INSTRUCTOR Height 152.4 cm (5') 09/15/2024 1:00 AM GENERAL EDUCATION INSTRUCTOR Body Mass Index 26.56 09/15/2024 1:00 AM GENERAL EDUCATION INSTRUCTOR Functional Status Functional Status Response Date of [...] POINT OF CARE Routine 09/19/2024 12:12 PM GENERAL EDUCATION INSTRUCTOR GLUCOSE - POINT OF CARE Routine 09/19/2024 8:37 AM GENERAL EDUCATION INSTRUCTOR BASIC METABOLIC PANEL (CALCIUM TOTAL) AM Draw 09/19/2024 12:36 AM GENERAL EDUCATION INSTRUCTOR MAGNESIUM BLOOD Routine 09/19/2024 12:36 AM GENERAL EDUCATION INSTRUCTOR PHOSPHORUS BLOOD Routine 09/19/2024 12:3 6 AM GENERAL EDUCATION INSTRUCTOR CBC W/O DIFFERENTIAL AM Draw 09/19/2024 12:36 AM GENERAL EDUCATION INSTRUCTOR GLUCOSE - POINT OF CARE Routine 09/18/2024 8:32 PM GENERAL EDUCATION INSTRUCTOR GLUCOSE - POINT OF CARE Routine 09/18/2024 5:44 PM GENERAL EDUCATION INSTRUCTOR GLUCOSE - POINT OF CARE Routine 09/18/2024 1:14 PM GENERAL EDUCATION INSTRUCTOR GLUCOSE - POINT OF CARE Routine 09/18/2024 9:08 AM GENERAL EDUCATION INSTRUCTOR BASIC METABOLIC PANEL (CALCIUM TOTAL) AM Draw 09/18/2024 1:04 AM GENERAL EDUCATION INSTRUCTOR MAGNESIUM BLOOD Routine 09/18/2024 1:04 AM GENERAL EDUCATION INSTRUCTOR PHOSPHORUS BLOOD Routine 09/18/2024 1:04 AM GENERAL EDUCATION INSTRUCTOR CBC W/O DIFFERENTIAL AM Draw 09/18/2024 1:04 AM GENERAL EDUCATION INSTRUCTOR GLUCOSE - POINT OF CARE Routine 09/17/2024 8:50 PM GENERAL EDUCATION INSTRUCTOR GLUCOSE - POINT OF CARE Routine 09/17/2024 8:18 PM GENERAL EDUCATION INSTRUCTOR GLUCOSE - POINT OF CARE Routine 09/17/2024 5:24 PM GENERAL EDUCATION INSTRUCTOR GLUCOSE - POINT OF CARE Routine 09/17/2024 12:19 PM GENERAL EDUCATION INSTRUCTOR GLUCOSE - POINT OF CARE Routine 09/17/2024 8:23 AM GENERAL EDUCATION INSTRUCTOR BASIC METABOLIC PANEL (CALCIUM TOTAL) AM Draw 09/17/2024 12:46 AM GENERAL EDUCATION INSTRUCTOR MAGNESIUM BLOOD Routine 09/17/2024 12:46 AM GENERAL EDUCATION INSTRUCTOR PHOSPHORUS BLOOD Routine 09/17/2024 12:4 6 AM GENERAL EDUCATION INSTRUCTOR CBC W/O DIFFERENTIAL AM Draw 09/17/2024 12:46 AM GENERAL EDUCATION INSTRUCTOR GLUCOSE - POINT OF CARE Routine 09/16/2024 8:28 PM GENERAL EDUCATION INSTRUCTOR GLUCOSE - POINT OF CARE Routine 09/16/2024 6:05 PM GENERAL EDUCATION INSTRUCTOR GLUCOSE - POINT OF CARE Routine 09/16/2024 12:13 PM GENERAL EDUCATION INSTRUCTOR GLUCOSE - POINT OF CARE Routine 09/16/2024 8:17 AM GENERAL EDUCATION INSTRUCTOR BASIC METABOLIC PANEL (CALCIUM TOTAL) AM Draw 09/16/2024 12:56 AM GENERAL EDUCATION INSTRUCTOR MAGNESIUM BLOOD Routine 09/16/2024 12:56 AM GENERAL EDUCATION INSTRUCTOR PHOSPHORUS BLOOD Routine 09/16/2024 12:5 6 AM GENERAL EDUCATION INSTRUCTOR CBC W/O DIFFERENTIAL AM Draw 09/16/2024 12:55 AM GENERAL EDUCATION INSTRUCTOR GLUCOSE - POINT OF CARE Routine 09/15/2024 8:01 PM GENERAL EDUCATION INSTRUCTOR GLUCOSE - POINT OF CARE Routine 09/15/2024 5:40 PM GENERAL EDUCATION INSTRUCTOR GLUCOSE - POINT OF CARE Routine 09/15/2024 12:03 PM GENERAL EDUCATION INSTRUCTOR GLUCOSE - POINT OF CARE Routine 09/15/2024 8:43 AM GENERAL EDUCATION INSTRUCTOR BASIC METABOLIC PANEL (CALCIUM TOTAL) AM Draw 09/15/2024 8:35 AM GENERAL EDUCATION INSTRUCTOR MAGNESIUM BLOOD Routine 09/15/2024 8:35 AM GENERAL EDUCATION INSTRUCTOR PHOSPHORUS BLOOD Routine 09/15/2024 8:35 AM GENERAL EDUCATION INSTRUCTOR CBC W/O DIFFERENTIAL AM Draw 09/15/2024 8:14 AM GENERAL EDUCATION INSTRUCTOR GLUCOSE - POINT OF CARE Routine 09/14/2024 11:02 PM GENERAL EDUCATION INSTRUCTOR GLUCOSE - POINT OF CARE Routine 09/14/2024 6:43 PM GENERAL EDUCATION INSTRUCTOR XR FEMUR LEFT 2VW Routine 09/14/2024 5:3 8 PM GENERAL EDUCATION INSTRUCTOR Fall, initial encounter GLUCOSE - POINT OF CARE Routine 09/14/2024 2:07 PM GENERAL EDUCATION INSTRUCTOR CARDIAC EKG ORDER 09/14/2024 1:1 3 PM GENERAL EDUCATION INSTRUCTOR CT HIP LEFT WO CONTRAST STAT 09/14/2024 8:46 AM GENERAL EDUCATION INSTRUCTOR Fall, initial encounter GLUCOSE - POINT OF CARE Routine 09/14/2024 8:21 AM GENERAL EDUCATION INSTRUCTOR GLUCOSE - POINT OF CARE Routine 09/14/2024 4:56 AM GENERAL EDUCATION INSTRUCTOR VITAMIN D 25-HYDROXY Routine 09/14/2024 2:15 AM GENERAL EDUCATION INSTRUCTOR TROPONIN-I HIGH SENSITIVE REFLEX 1HOUR Timed 09/14/2024 2:15 AM GENERAL EDUCATION INSTRUCTOR XR PELVIS W LEFT HIP 2VW STAT 09/14/2024 1:44 AM GENERAL EDUCATION INSTRUCTOR Fall, initial encounter GLUCOSE - POINT OF CARE Routine 09/14/2024 1:38 AM GENERAL EDUCATION INSTRUCTOR TROPONIN-I HIGH SENSITIVE BASELINE + 1HR STAT 09/14/2024 12:23 AM GENERAL EDUCATION INSTRUCTOR GLUCOSE - POINT OF CARE Routine 09/13/2024 9:24 PM GENERAL EDUCATION INSTRUCTOR CT FACIAL BONES WO CONTRAST STAT 09/13/2024 7:15 PM GENERAL EDUCATION INSTRUCTOR Fall, initial encounter Contusion of scalp, initial encounter CT CERVICAL SPINE WO CONTRAST STAT 09/13/2024 7:15 PM GENERAL EDUCATION INSTRUCTOR Fall, initial encounter Contusion of scalp, initial encounter CT HEAD WO CONTRAST STAT 09/13/2024 7 :15 PM GENERAL EDUCATION INSTRUCTOR Fall, initial encounter Contusion of scalp, initial encounter PT-INR [facility] STAT 09/13/2024 5:59 PM GENERAL EDUCATION INSTRUCTOR COMPREHENSIVE METABOLIC PANEL STAT 09/13/2024 5:59 PM GENERAL EDUCATION INSTRUCTOR CBC W AUTO DIFFERENTIAL STAT 09/13/2024 5:59 PM GENERAL EDUCATION INSTRUCTOR HEMOGLOBIN A1C Routine 05/04/2023 4:06 AM CDT from Last 3 Months or Most Recently Relevant to Health Maintenance Results * (ABNORMAL) GLUCOSE - POINT OF CARE (09/19/2024 12:12 PM GENERAL EDUCATION INSTRUCTOR) Only the most recent of26 resultswithin the time period is included. Glucose WB/POC 328(H) 70 - 99 mg/dL 09/19/2024 12:17 PM GENERAL EDUCATION INSTRUCTOR [facility] Specimen Type Cap Fingerstick 2023 12:17 PM GENERAL EDUCATION INSTRUCTOR [facility] Blood BLOOD SPECIMEN / Unknown 09/19/2024 12:12 PM GENERAL EDUCATION INSTRUCTOR 09/19/2024 12:17 PM GENERAL EDUCATION INSTRUCTOR Serena Marquez MD LAB - POINT OF CARE ORDERABLES [facility] [address] [place] [id number], [facility] [phone] * (ABNORMAL) CBC W/O DIFFERENTIAL (09/19/2024 12:36 AM GENERAL EDUCATION INSTRUCTOR) Only the most recent of5 resultswithin the time period is included. WBC 7.0 4.0 - 10.7 x10E9/L 09/19/2024 1:05 AM [facility] RBC Count 3.75(L) 3.90 - 5.20 x10E12/L 09/19/2024 1:05 AM [facility] Hemoglobin 10.9(L) 11.9 - 15.8 g/dL 09/19/2024 1:05 AM [facility] Hematocrit 34.4(L) 34.8 - 46.1 % 09/19/2024 1:05 AM [facility] MCV 91.7 80.0 - 98.0 fL 09/19/2024 1:05 AM [facility] MCH 29.1 26.7 - 33.6 pg 09/19/2024 1:05 AM [facility] MCHC 31.7 31.7 - 36.3 g/dL 09/19/2024 1:05 AM [facility] RDW-CV 17.2(H) 11.3 - 14.8 % 09/19/2024 1:05 AM [facility] Platelet Count 387 150 - 420 x10E9/L 09/19/2024 1:05 AM [facility] MPV 10.5 7.8 - 11.4 fL 09/19/2024 1:05 AM [facility] Blood BLOOD SPECIMEN / Unknown Lab Venipuncture / Unknown 09/19/2024 12:36 AM GENERAL EDUCATION INSTRUCTOR 09/19/2024 12:53 AM [facility] Any Mccoy PA-C LAB - HEMATOLOG Y ORDERABLES [facility] [address] [place] [address], [facility] [phone] * (ABNORMAL) BASIC METABOLIC PANEL (CALCIUM TOTAL) (09/19/2024 12:36 AM [facility]) Only the most recent of5 resultswithin the time period is included. BUN 61(H) 7 - 26 mg/dL 09/19/2024 1:18 AM [facility] Creatinine 1.31(H) 0.56 - 0.96 mg/dL 09/19/2024 1:18 AM [facility] Sodium 136 136 - 145 mmol/L 09/19/2024 1:18 AM [facility] Potassium 5.0(H) 3.5 - 4.5 mmol/L 09/19/2024 1:18 AM [facility] Chloride 100 98 - 107 mmol/L 09/19/2024 1:18 AM [facility] CO2 30(H) 22 - 29 mmol/L 09/19/2024 1:18 AM [facility] Glucose 268(H) 70 - 99 mg/dL 09/19/2024 1:18 AM [facility] Calcium 9.2 8.4 - 10.2 mg/dL 09/19/2024 1:18 AM [facility] Anion Gap 6 6 - 16 09/19/2024 1:18 AM [facility] BUN/Creatinine Ratio 47(H) 7 - 23 09/19/2024 1:18 AM [facility] Osmolality Calculated 309(H) 275 - 295 mOsm/kg 09/19/2024 1:18 AM [facility] eGFR by CKD-EPI 42(L) >=90 mL/min/1.7 3 m2 09/19/2024 1:18 AM [facility] Blood BLOOD SPECIMEN / Unknown Lab Venipuncture / Unknown 09/19/2024 12:36 AM GENERAL EDUCATION INSTRUCTOR 09/19/2024 12:53 AM [facility] Any Mccoy PA-C LAB - CHEMISTRY ORDERABLES [facility] [address] [place] [address], [facility] [phone] * PHOSPHORUS BLOOD (09/19/2024 12:36 AM [facility]) Only the most recent of5 resultswithin the time period is included. Phosphorus 3.9 2.9 - 5.1 mg/dL 09/19/2024 1:18 AM [facility] Blood BLOOD SPECIMEN / Unknown Lab Venipuncture / Unknown 09/19/2024 12:36 AM GENERAL EDUCATION INSTRUCTOR 09/19/2024 12:53 AM GENERAL EDUCATION INSTRUCTOR Any Deterding PA-C LAB - CHEMISTRY ORDERABLES Performing Organization Address City/[facility]/ZIP Co de Phone Number [address] [address], [facility] [phone] * MAGNESIUM BLOOD (09/19/2024 12:36 AM GENERAL EDUCATION INSTRUCTOR) Only the most recent of5 resultswithin the time period is included. Magnesium 2.0 1.6 - 2.6 mg/dL 09/19/2024 1:18 AM GENERAL EDUCATION INSTRUCTOR [facility] Blood BLOOD SPECIMEN / Unknown Lab Venipuncture / Unknown 09/19/2024 12:36 AM GENERAL EDUCATION INSTRUCTOR 09/19/2024 12:53 AM GENERAL EDUCATION INSTRUCTOR Any Deterding PA-C LAB - CHEMISTRY ORDERABLES Performing Organization Address [facility] Co de Phone Number [address] [address], [facility] [phone] * XR Femur Left 2Vw (09/14/2024 5:38 PM GENERAL EDUCATION INSTRUCTOR) Anatomical Region Laterality Modality Lower Extremity Digital Radiogra phy 09/14/2024 5:13 PM GENERAL EDUCATION INSTRUCTOR Narrative 09/14/2024 8:44 PM GENERAL EDUCATION INSTRUCTOR PROCEDURE: XR FEMUR LEFT 2VW, DATE/TIME OF EXAM: 09/14/2024 4:46 PM, LOCATION [facility] INDICATION: W19.XXXA: Fall, initial encounter COMPARISON: CT left hip and extrarenal pelvis with left hip 09/14/2024. FINDINGS/IMPRESSION: Redemonstration of age indeterminate fracture of the femoral neck/intertrochanteric region. Postsurgical changes of left hip fixation with intramedullary stephie and screw. The alignment appears normal. Atherosclerotic calcifications of the arteries. Report dictated by Ming Fair MD, (Care Transport Nurse). IArmando MD have personally reviewed and interpreted this examination/study. > Interpreting Provider: Armando Obando MD on 09/14/2024 8:44 PM Procedure Note Armando Obando MD - 09/14/2024 PROCEDURE: XR FEMUR LEFT 2VW, DATE/TIME OF EXAM: 09/14/2024 4:46 PM, LOCATION [facility] INDICATION: W19.XXXA: Fall, initial encounter COMPARISON: CT left hip and extrarenal pelvis with left hip 09/14/2024. FINDINGS/IMPRESSION: Redemonstration of age indeterminate fracture of the femoral neck/intertrochanteric region. Postsurgical changes of left hip fixation with intramedullary stephie and screw. The alignment appears normal. Atherosclerotic calcifications of the arteries. Report dictated by Ming Fair MD, (Care Transport Nurse). Armando Moore MD have personally reviewed and interpreted this examination/study. > Interpreting Provider: Armando Obando MD on 09/14/2024 8:44 PM Ki Beckford III, MD DIAGNOSTIC IMAG ING ORDERABLES * CARDIAC EKG ORDER (09/14/2024 1:13 PM GENERAL EDUCATION INSTRUCTOR) Narrative 09/14/2024 1:13 PM GENERAL EDUCATION INSTRUCTOR Ordered by an unspecified provider. Scanned Document CARDIAC SERVICES ORD ERABLES * CT Hip Left Wo Contrast (09/14/2024 8:46 AM GENERAL EDUCATION INSTRUCTOR) Anatomical Region Laterality Modality Lower Extremity Computed Tomogra phy 09/14/2024 11:3 4 AM GENERAL EDUCATION INSTRUCTOR Impressions 09/14/2024 12:02 PM GENERAL EDUCATION INSTRUCTOR IMPRESSION: 1.Age-indeterminate comminuted fracture of the femoral neck and mildly displaced fracture of the proximal femoral shaft. Subacute postsurgical changes of left hip fixation with intramedullary stephie and screw. Recommend direct comparison with prior imaging. 2.Likely seroma (or a Tyler-Christie lesion) in the lateral left superior lower extremity measuring up to 4.9 cm. Report dictated by Gia Sargent MD (senior vice president). Manisha Moore MD have personally reviewed and interpreted this examination/study. > Interpreting Provider: Manisha Singer MD on 09/14/2024 12:02 PM Narrative 09/14/2024 12:02 PM GENERAL EDUCATION INSTRUCTOR PROCEDURE: CT HIP LEFT WO CONTRAST DATE/TIME [...] cm. Report dictated by Gia Sargent MD (senior vice president). I, Manisha Singer MD have personally reviewed and interpreted this examination/study. > Interpreting Provider: Manisha Singer MD on 09/14/2024 12:02 PM Any Mccoy PA-C CT ORDERABLES * (ABNORMAL) TROPONIN-I HIGH SENSITIVE REFLEX 1HOUR (09/14/2024 2:15 AM GENERAL EDUCATION INSTRUCTOR) Troponin I High Sensitive 32(H) <=14 ng/L 09/14/2024 3:38 AM GENERAL EDUCATION INSTRUCTOR [facility] Delta Troponin I HS 09/14/2024 3:38 AM GENERAL EDUCATION INSTRUCTOR [facility] Comment:Delta value intentio stanford not calculated. Baseline to 1 hour specimen collection interval exceeded. Blood BLOOD SPECIMEN / Unknown Venipuncture / Unknown 09/14/2024 2:15 AM GENERAL EDUCATION INSTRUCTOR 09/14/2024 2:59 AM GENERAL EDUCATION INSTRUCTOR Lam David MD LAB - CHEMISTRY [facility] Organization Address City/State/[facility] Co de Phone Number [address] [address], [facility] [phone] * VITAMIN D 25-HYDROXY (09/14/2024 2:15 AM GENERAL EDUCATION INSTRUCTOR) Vitamin D, 25 Hydroxy 73.0 30.0 - 80.0 ng/mL 09/14/2024 3:12 PM GENERAL EDUCATION INSTRUCTOR [facility] Comment: The recommendations for 25-Hydroxy Vitamin [...] Unknown Venipuncture / Unknown 09/14/2024 2:15 AM GENERAL EDUCATION INSTRUCTOR 09/14/2024 2:59 AM GENERAL EDUCATION INSTRUCTOR Mercedes Boateng PA-C LAB - CHEMIS TRY ORDERABLES [address] [address], [facility] [phone] * XR Pelvis W Left Hip 2Vw (09/14/2024 1:44 AM GENERAL EDUCATION INSTRUCTOR) Anatomical Region Laterality Modality Pelvis Digital Radiogra phy 09/14/2024 2:48 AM GENERAL EDUCATION INSTRUCTOR Narrative 09/14/2024 6:03 AM GENERAL EDUCATION INSTRUCTOR EXAMINATION: XR PELVIS W LEFT HIP 2VW DATE/TIME OF EXAM: 09/14/2024 1:54 AM, LOCATION [facility] HISTORY: W19.XXXA: Fall, initial encounter Fracture [...] hip. Report dictated by Ze Gama MD (senior vice president). IArmando MD have personally reviewed and interpreted this examination/study. > Interpreting Provider: Armando Obando MD on 09/14/2024 6:03 AM Procedure Note Armando Obando MD - 09/14/2024 EXAMINATION: XR PELVIS W LEFT HIP 2VW DATE/TIME OF EXAM: 09/14/2024 1:54 AM, LOCATION [facility] HISTORY: W19.XXXA: Fall, initial encounter Fracture [...] hip. Report dictated by Ze Gama MD (senior vice president). IArmando MD have personally reviewed and interpreted this examination/study. > Interpreting Provider: Armando Obando MD on 09/14/2024 6:03 AM Lam David MD DIAGNOSTIC IMAGING O RDERABLES * (ABNORMAL) TROPONIN-I HIGH SENSITIVE BASELINE + 1HR (09/14/2024 12:23 AM GENERAL EDUCATION INSTRUCTOR) Troponin I High Sensitive 32(H) <=14 ng/L 09/14/2024 1:02 AM GENERAL EDUCATION INSTRUCTOR [facility] Blood BLOOD SPECIMEN / Unknown Venipuncture / Unknown 09/14/2024 12:23 AM GENERAL EDUCATION INSTRUCTOR 09/14/2024 12:30 AM GENERAL EDUCATION INSTRUCTOR Lam David MD LAB [facility] [address] [address], [facility] [phone] * CT Cervical Spine Wo Contrast (09/13/2024 7:15 PM GENERAL EDUCATION INSTRUCTOR) Anatomical Region Laterality Modality Spine Computed Tomogra phy 09/13/2024 7:09 PM GENERAL EDUCATION INSTRUCTOR Impressions 09/13/2024 7:57 PM GENERAL EDUCATION INSTRUCTOR IMPRESSION: 1.No acute intracranial hemorrhage, midline shift, or significant mass effect. 2.No acute facial bone fractures identified. 3.No evidence of acute fracture in the cervical spine. 4.There is a prominent left thyroid nodule. A nonemergent thyroid ultrasound is recommended for further evaluation. > Dictated by Ming Fair MD (Care Transport Nurse) Giles Moore MD have personally reviewed and interpreted this examination/study. > Interpreting Provider: Giles Moya MD on 09/13/2024 7:57 PM Narrative 09/13/2024 7:57 PM GENERAL EDUCATION INSTRUCTOR PROCEDURE: CT HEAD WO CONTRAST, CT CERVICAL SPINE WO CONTRAST, CT FACIAL BONES WO CONTRAST, DATE/TIME OF EXAM: 09/13/2024 7:21 PM, LOCATION [facility] INDICATION: W19.XXXA: Fall, initial encounter S00.03XA: Contusion of scalp, initial encounter H53.9: Vision changes EXAMINATION: 1. Computed tomography (CT) of the head without contrast 2. CT of the maxillofacial bones, orbits, and paranasal sinuses without contrast 3. CT of the cervical spine without contrast ADDITIONAL CLINICAL INFORMATION: Ordering Provider Reason For Exam: R/O ICH (accession [id number]), r/o frx (accession [id number]), r/o frx (accession [id number]) TECHNIQUE: CT of the head, cervical spine, [...] DATE/TIME OF EXAM: 09/13/2024 7:21 PM, LOCATION [facility] INDICATION: W19.XXXA: Fall, initial encounter S00.03XA: Contusion of scalp, initial encounter H53.9: Vision changes EXAMINATION: 1. Computed tomography (CT) of the head without contrast 2. CT of the maxillofacial bones, orbits, and paranasal sinuses without contrast 3. CT of the cervical spine without contrast ADDITIONAL CLINICAL INFORMATION: Ordering Provider Reason For Exam: R/O ICH (accession [id number]), r/ofrx (accession [id number]), r/o frx (accession [id number]) TECHNIQUE: CT of the head, cervical spine, [...] evaluation. > Dictated by Ming Fair MD (Care Transport Nurse) Giles Moore MD have personally reviewed and interpretedthis examination/study. > Interpreting Provider: Giles Moya MD on 09/13/2024 7:57 PM Silvina Galo PA-C CT ORDERABLES * CT Facial Bones Wo Contrast (09/13/2024 7:15 PM GENERAL EDUCATION INSTRUCTOR) Anatomical Region Laterality Modality Head Computed Tomogra phy 09/13/2024 7:09 PM GENERAL EDUCATION INSTRUCTOR Impressions 09/13/2024 7:57 PM GENERAL EDUCATION INSTRUCTOR IMPRESSION: 1.No acute intracranial hemorrhage, midline shift, or significant mass effect. 2.No acute facial bone fractures identified. 3.No evidence of acute fracture in the cervical spine. 4.There is a prominent left thyroid nodule. A nonemergent thyroid ultrasound is recommended for further evaluation. > Dictated by Ming Fair MD (Care Transport Nurse) IGiles MD have personally reviewed and interpreted this examination/study. > Interpreting Provider: Giles Moya MD on 09/13/2024 7:57 PM Narrative 09/13/2024 7:57 PM GENERAL EDUCATION INSTRUCTOR PROCEDURE: CT HEAD WO CONTRAST, CT CERVICAL SPINE WO CONTRAST, CT FACIAL BONES WO CONTRAST, DATE/TIME OF EXAM: 09/13/2024 7:21 PM, LOCATION [facility] INDICATION: W19.XXXA: Fall, initial encounter S00.03XA: Contusion of scalp, initial encounter H53.9: Vision changes EXAMINATION: 1. Computed tomography (CT) of the head without contrast 2. CT of the maxillofacial bones, orbits, and paranasal sinuses without contrast 3. CT of the cervical spine without contrast ADDITIONAL CLINICAL INFORMATION: Ordering Provider Reason For Exam: R/O ICH (accession [id number]), r/o frx (accession [id number]), r/o frx (accession [id number]) TECHNIQUE: CT of the head, cervical spine, [...] DATE/TIME OF EXAM: 09/13/2024 7:21 PM, LOCATION [facility] INDICATION: W19.XXXA: Fall, initial encounter S00.03XA: Contusion of scalp, initial encounter H53.9: Vision changes EXAMINATION: 1. Computed tomography (CT) of the head without contrast 2. CT of the maxillofacial bones, orbits, and paranasal sinuses without contrast 3. CT of the cervical spine without contrast ADDITIONAL CLINICAL INFORMATION: Ordering Provider Reason For Exam: R/O ICH (accession [id number]), r/ofrx (accession [id number]), r/o frx (accession [id number]) TECHNIQUE: CT of the head, cervical spine, [...] evaluation. > Dictated by Ming Fair MD (Care Transport Nurse) Giles Moore MD have personally reviewed and interpretedthis examination/study. > Interpreting Provider: Giles Moya MD on 09/13/2024 7:57 PM Silvina Galo PA-C CT ORDERABLES * CT Head Wo Contrast (09/13/2024 7:15 PM GENERAL EDUCATION INSTRUCTOR) Anatomical Region Laterality Modality Head Computed Tomogra phy 09/13/2024 7:09 PM GENERAL EDUCATION INSTRUCTOR Impressions 09/13/2024 7:57 PM GENERAL EDUCATION INSTRUCTOR IMPRESSION: 1.No acute intracranial hemorrhage, midline shift, or significant mass effect. 2.No acute facial bone fractures identified. 3.No evidence of acute fracture in the cervical spine. 4.There is a prominent left thyroid nodule. A nonemergent thyroid ultrasound is recommended for further evaluation. > Dictated by Ming Fair MD (Care Transport Nurse) Giles Moore MD have personally reviewed and interpreted this examination/study. > Interpreting Provider: Giles Moya MD on 09/13/2024 7:57 PM Narrative 09/13/2024 7:57 PM GENERAL EDUCATION INSTRUCTOR PROCEDURE: CT HEAD WO CONTRAST, CT CERVICAL SPINE WO CONTRAST, CT FACIAL BONES WO CONTRAST, DATE/TIME OF EXAM: 09/13/2024 7:21 PM, LOCATION [facility] INDICATION: W19.XXXA: Fall, initial encounter S00.03XA: Contusion of scalp, initial encounter H53.9: Vision changes EXAMINATION: 1. Computed tomography (CT) of the head without contrast 2. CT of the maxillofacial bones, orbits, and paranasal sinuses without contrast 3. CT of the cervical spine without contrast ADDITIONAL CLINICAL INFORMATION: Ordering Provider Reason For Exam: R/O ICH (accession [id number]), r/o frx (accession [id number]), r/o frx (accession [id number]) TECHNIQUE: CT of the head, cervical spine, [...] DATE/TIME OF EXAM: 09/13/2024 7:21 PM, LOCATION [facility] INDICATION: W19.XXXA: Fall, initial encounter S00.03XA: Contusion of scalp, initial encounter H53.9: Vision changes EXAMINATION: 1. Computed tomography (CT) of the head without contrast 2. CT of the maxillofacial bones, orbits, and paranasal sinuses without contrast 3. CT of the cervical spine without contrast ADDITIONAL CLINICAL INFORMATION: Ordering Provider Reason For Exam: R/O ICH (accession [id number]), r/ofrx (accession [id number]), r/o frx (accession [id number]) TECHNIQUE: CT of the head, cervical spine, [...] evaluation. > Dictated by Ming Fair MD (Care Transport Nurse) IGiles MD have personally reviewed and interpretedthis examination/study. > Interpreting Provider: Giles Moya MD on 09/13/2024 7:57 PM Silvina Galo PA-C CT ORDERABLES * PT-INR [facility] (09/13/2024 5:59 PM GENERAL EDUCATION INSTRUCTOR) Pathologist [facility] [place] PT 12.7 12.1 - 14.8 Seconds 09/13/2024 6:26 PM GENERAL EDUCATION INSTRUCTOR [facility] INR 1.0 See Comment 09/13/2024 6:26 PM GENERAL EDUCATION INSTRUCTOR [facility] Comment:The suggested therap eutic range for standard coumadin (warfarin) therapy is an INR of 2.0-3.0. For high-risk patients (Mechanical Mitral Valve Prosthesis, etc.), the suggested prophylactic therapeutic range is an INR of 2.5-3.5. Blood BLOOD SPECIMEN / Unknown Venipuncture / Unknown 09/13/2024 5:59 PM GENERAL EDUCATION INSTRUCTOR 09/13/2024 6:03 PM GENERAL EDUCATION INSTRUCTOR Silvina Galo PA-C LAB - COAGULATION ORDERABLES [facility] [address] [place] [address], [facility] [phone] * (ABNORMAL) CBC W AUTO DIFFERENTIAL (09/13/2024 5:59 PM GENERAL EDUCATION INSTRUCTOR) WBC 8.9 4.0 - 10.7 x10E9/L 09/13/2024 6:[address] [facility] RBC Count 3.99 3.90 - 5.20 x10E12/L 09/13/2024 6:09 PM [facility] Hemoglobin 11.7(L) 11.9 - 15.8 g/dL 09/13/2024 6:09 PM [facility] Hematocrit 36.5 34.8 - 46.1 % 09/13/2024 6:09 PM [facility] MCV 91.5 80.0 - 98.0 fL 09/13/2024 6:09 PM [facility] MCH 29.3 26.7 - 33.6 pg 09/13/2024 6:09 PM [facility] MCHC 32.1 31.7 - 36.3 g/dL 09/13/2024 6:09 PM [facility] RDW-CV 18.1(H) 11.3 - 14.8 % 09/13/2024 6:09 PM [facility] Platelet Count 388 150 - 420 x10E9/L 09/13/2024 6:09 PM [facility] MPV 10.3 7.8 - 11.4 fL 09/13/2024 6:09 PM [facility] Neutrophil % 67.7 41.0 - 74.0 % 09/13/2024 6:09 PM [facility] Lymphocyte % 19.6 17.0 - 47.0 % 09/13/2024 6:09 PM [facility] Monocyte % 7.7 3.0 - 11.0 % 09/13/2024 6:09 PM [facility] Eosinophil % 3.6 0.0 - 7.0 % 09/13/2024 6:09 PM [facility] Basophil % 0.7 0.0 - 1.6 % 09/13/2024 6:09 PM [facility] Immature Granulocytes % 0.7 0.0 - 1.0 % 09/13/2024 6:09 PM [facility] Neutrophil Absolute 6.00 1.60 - 7.50 x10E9/L 09/13/2024 6:09 PM [facility] Lymphocyte Absolute 1.74 1.00 - 4.40 x10E9/L 09/13/2024 6:09 PM [facility] Monocyte Absolute 0.68 0.15 - 1.00 x10E9/L 09/13/2024 6:09 PM [facility] Eosinophil Absolute 0.32 0.00 - 0.60 x10E9/L 09/13/2024 6:09 PM [facility] Basophil Absolute 0.06 0.00 - 0.13 x10E9/L 09/13/2024 6:09 PM [facility] Blood BLOOD SPECIMEN / Unknown Venipuncture / Unknown 09/13/2024 5:59 PM GENERAL EDUCATION INSTRUCTOR 09/13/2024 6:04 PM GENERAL EDUCATION INSTRUCTOR Silvina Galo PA-C LAB - HEMATOLOGY O RDERABLES [facility] [address] [place] [address], [facility] [phone] * (ABNORMAL) COMPREHENSIVE METABOLIC PANEL (09/13/2024 5:59 PM GENERAL EDUCATION INSTRUCTOR) BUN 36(H) 7 - 26 mg/dL 09/13/2024 6:34 PM [facility] Creatinine 1.39(H) 0.56 - 0.96 mg/dL 09/13/2024 6:34 PM [facility] Sodium 142 136 - 145 mmol/L 09/13/2024 6:34 PM [facility] Potassium 3.9 3.5 - 4.5 mmol/L 09/13/2024 6:34 PM [facility] Chloride 106 98 - 107 mmol/L 09/13/2024 6:34 PM [facility] CO2 24 22 - 29 mmol/L 09/13/2024 6:34 PM [facility] Glucose 156(H) 70 - 99 mg/dL 09/13/2024 6:34 PM [facility] Calcium 9.3 8.4 - 10.2 mg/dL 09/13/2024 6:34 PM [facility] Protein Total 6.6 6.0 - 8.3 g/dL 09/13/2024 6:34 PM [facility] Albumin 3.1(L) 3.4 - 5.0 g/dL 09/13/2024 6:34 PM [facility] Bilirubin Total 0.7 0.2 - 1.2 mg/dL 09/13/2024 6:34 PM [facility] Alkaline Phosphatase 78 40 - 150 U/L 09/13/2024 6:34 PM [facility] ALT 95(H) 5 - 55 U/L 09/13/2024 6:34 PM [facility] AST 35(H) 5 - 34 U/L 09/13/2024 6:34 PM [facility] Anion Gap 12 6 - 16 09/13/2024 6:34 PM [facility] BUN/Creatinine Ratio 26(H) 7 - 23 09/13/2024 6:34 PM [facility] Osmolality Calculated 306(H) 275 - 295 mOsm/kg 09/13/2024 6:34 PM [facility] Albumin/Globulin Ratio 0.9(L) 1.1 - 2.3 09/13/2024 6:34 PM [facility] eGFR by CKD-EPI 39(L) >=90 mL/min/1.7 3 m2 09/13/2024 6:34 PM [facility] Blood BLOOD SPECIMEN / Unknown Venipuncture / Unknown 09/13/2024 5:59 PM GENERAL EDUCATION INSTRUCTOR 09/13/2024 6:04 PM [facility] Silvina Galo PA-C LAB - CHEMISTRY OR DERABLES Performing Organization Address [facility]/State/[facility] Co de Phone Number [facility] [address] [place] [address], [facility] [phone] * (ABNORMAL) HEMOGLOBIN A1C (05/04/2023 4:06 AM CDT) Hemoglobin A1c 7.8(H) <=5.6 % 05/04/2023 2:37 PM CDT [facility] Estimated Average Glucose 177 mg/dL 05/04/2023 2:37 PM T [facility] Comment: HbA1c Interpretation: Normal : < 5.7% Pre-diabetes: 5.7-6.4% Diabetes: Equal to or greater than 6.5% Test results diagnostic of diabetes should be repeated for confirmation. Treatment target values recommended by ADA and other clinical organizations should be used to evaluate metabolic control in patients. Reference: [place] [employer], Standards of Care in Diabetes -2020 In patients 70 years and older consider HbA1c target range of 7.0-7.5% (Reference: Shakir Parada et al. ERIKA. 2012) The Sebia assay for the measurement of HbA1c is a National Glycohemoglobin Standardization Program (NGSP) certified method. Blood BLOOD SPECIMEN / Unknown Lab Venipuncture / Unknown 05/04/2023 4:06 AM CDT 05/04/2023 5:25 AM CDT Ru Pena MD LAB - CHEMISTRY ORD ERABLES [facility] [address] [place] [address], [facility] [phone] from Last 3 Months or Most Recently Relevant to Health Maintenance Advance Directives * Full Code (Latest Code Status on File) Date Activated Date Inactivated Comments 09/14/2024 3:25 AM 09/19/2024 2:53 PM * Full Code Date Activated Date Inactivated Comments 05/03/2023 5:30 AM 05/05/2023 3:48 PM Care Teams Computer Training Specialist Relationship Specialty Start Date End Date Neftali Torres MD [address], [place] [phone] PCP - General 06/05/16
[2024-11-13 12:30] LABS: Cholesterol 332 mg/dL (0-200); HDL Direct 46 mg/dL (40-60); LDL Cholesterol Calculated 255 mg/dL (<130); Triglycerides 157 mg/dL (0-150)
== END 2024-11-13 11:00 | disposition home or self-care (01) ==
LOC: CHSLAB 11:00
PROVIDERS: PCP Internal Medicine; Visit Provider Internal Medicine Cardiovascular Disease
DX: E78.5 Hyperlipidemia, unspecified (principal)
CPT/HCPCS: 36415; 80061

== ENCOUNTER 2024-12-24 11:45 | Outpatient (CLI) | payer MEDICARE, SELFPAY ==
--- NOTE | ~2024-12-24 | DEXA_ITS ---
? Bone Density Report? Name:? KARISSA FOSTERGY Rashawn Patient ID:??? [id number] Age:? 79 Sex:? Female Ethnicity:? White Date of : 1945 Indication: postmenopausal; screening for osteoporosis; height loss; prior fracture; Referring Provider: Neftali Torres Study: Bone densitometry was performed. Exam Date: December 24, 2024 Accession number: [id number] Bone Density: Region? BMD??? T-score? Z-score?? Classification AP Spine(L1-L4)? 1.252??? 1.9?4.4? Normal Femoral Neck (Right)? 0.611?? -2.1? 0.0? Osteopenia Total Hip (Right)? 0.941??? 0.0? 1.9?Normal World Health Organization criteria for BMD impression classify patients as: Normal (T-score at or above -1.0), Osteopenia (T-score between -1.0 and -2.5), or Osteoporosis (T-score at or below -2.5). 10-year Fracture Risk: FRAX not reported because: ? Prior hip or vertebral fracture Previous Exams: Region? Exam? Age? BMD?? T-score? BMD Change? BMD Change ? Date? g/cm2? vs Baseline??? vs Previous Total Hip(Right) ? 12/24/2024? 79? 0.941? 0.0? 0.104 (12.5%)* 0.104 (12.5%)* ? 01/19/2022? 76? 0.836??? -0.9? *Denotes significance at 95% confidence level, LSC for Total Hip = 0.027 g/cm2 ??? Clinical Information Provided by Patient: Have had a previous hip or vertebral fracture Has had a low trauma fracture Has used the following medications: Vitamin D Patient maximum height was 62 Menopause Age: 56 Drinks caffeinated beverages Onset of menses at age 13 Number of children 4 Impression: The patient has low bone mass, based on the Right Femoral Neck T- score. The patient has risk factors, including: previous fracture. No significant bone loss was observed. Discussion: INCREASED RISK OF FRACTURE DUE TO HISTORY OF FRACTURE. The patient's previous fracture puts the patient at high risk of a future fracture. In untreated patients, the risk of osteoporotic fracture increases approximately two-fold for each 1.0 SD decrease in T-score.? Low bone density is not the only risk factor for fracture; also consider factors such as patient's age, frailty or poor health, risk of falling, risk of injury, previous osteoporotic fracture, family history of osteoporosis, cigarette smoking, low body weight, etc.? Not everyone with a low trauma fracture has osteoporosis; osteomalacia and other metabolic bone disorders should also be considered. Patients who have osteoporosis should be evaluated for specific diseases and conditions (secondary causes) that may cause or contribute to bone loss and fracture risk. National Osteoporosis Foundation (NOF) recommends pharmacologic intervention for patients with a prior hip or vertebral fracture regardless of BMD T-score. The patient should follow a healthful lifestyle (good nutrition with adequate calcium and vitamin D, and appropriate weight-bearing exercise). Follow-Up: Consider a repeat BMD and Vertebral Fracture Assessment (VFA) exam in 2 years or sooner if medically necessary, to reassess this patient's status. Reported by: SANTOS on 58:11:00 AM. KRIS
--- OUTSIDE RECORDS SUMMARY | 2024-12-24 12:59 | XMS_ITS | Clinical Summary ---
Author Organization [facility] s Address [address] [place] [address] Care Team Providers Care Research And Evaluation Manager Name Role Phone Neftali Torres MD Primary Care Provider [phone] Brian Carson Nae DO Unavailable [phone] Allergies Active Allergy Reactions Criticality Noted Date Comments Codeine Hallucinations Medium Tramadol Hives,Itching Medium Medications aspirin 325 mg tablet Take 81 mg by mouth daily Active metoprolol XL (TOPROL-XL) 50 mg 24 hr tablet TAKE ONE TABLET BY MOUTH ONCE DAILY 90 tablet 3 8 Active Additional Information Patient taking differently: 50 mg oral Daily, Informant: Self, Reported on 12/16/2024 furosemide (LASIX) 40 mg tablet TAKE ONE TABLET BY MOUTH ONCE DAILY 90 tablet 3 8 Active Additional Information Patient taking differently: 40 mg oral Daily, Informant: Self, Reported on 12/16/2024 lisinopriL (PRINIVIL,ZEST RIL) 10 mg tablet Take 1 tablet by [...] total) by mouth every other day Active cholecalcifero l (VITAMIN D-3) 1,000 unit capsule Take 1 capsule (1,000 Units total) by mouth daily Active folic acid (FOLVITE) 800 mcg tablet Take 0.5 tablets (400 mcg total) by mouth daily Active CALCIUM CITRATE ORAL Take 600 mg by mouth daily Active omega 3-hei-chc-fish oil 1,200 (144-216) mg capsule Take 1 tablet/capsule by mouth daily Active FreeStyle Anne-Marie 2 Sensor kit CHANGE SENSOR EVERY 14 DAYS 3 Active ALPRAZolam (XANAX) 0.25 mg tablet Take 1 tablet (0.25 mg total) by mouth nightly as needed for anxiety Active azithromycin (ZITHROMAX) 500 mg tablet Take 1 tablet (500 mg total) by mouth daily 3 tablet 3 Active Additional Information Patient not taking.Reported on 12/16/2024 atorvastatin (LIPITOR) 80 mg tablet Take 1 tablet (80 mg total) by mouth nightly at bedtime. 30 tablet 11 3 Active clopidogreL (PLAVIX) 75 mg tablet Take 1 tablet (75 mg total) by mouth daily 3 Active Ozempic 1 mg/dose (4 mg/3 mL) pen injector injection INJECT 1 MG SUBCUTANEOUSLY ONCE A WEEK 5 Active Active Problems Problem Noted Date Diagnosed Date Carotid stenosis, asymptomatic, left 04/30/2023 Assessment & Plan (05/17/2023 9:40 AM CDT): Status post left CEA. Continue risk factor modification with ASA, Plavix statin therapy. Follow-up in 6 months with repeat duplex. Stenosis of left carotid artery 04/23/2023 Mixed hyperlipidemia 04/04/2023 Assessment & Plan (12/18/2024 7:29 AM CDT): Stable continue Lipitor Assessment & Plan (06/10/2024 9:49 AM CDT): Stable continue Lipitor Assessment & Plan (04/04/2023 9:24 AM CDT): Stable continue Lipitor 80 mg. Abnormal kidney function 03/20/2023 Bilateral carotid artery stenosis 02/21/2023 Assessment & Plan (12/18/2024 7:29 AM CDT): Right ICA with moderate 50-69% stenosis. Left ICA with borderline moderate 50- 69% stenosis. Status post left CEA 2 years ago, likely some intimal hyperplasia. Continue risk factor modification with ASA Plavix statin therapy and good blood pressure control. Follow up in 6 months repeat carotid duplex. Assessment & Plan (06/10/2024 9:49 AM CDT): Asymptomatic moderate right ICA stenosis. Left ICA status post carotid endarterectomy. Overall doing well. Continue risk factor modification with ASA Plavix statin therapy good blood pressure control. Follow up in 6 months repeat carotid duplex. Assessment & Plan (11/27/2023 9:44 AM SIZING MACHINE OPERATOR): Left carotid continues to be patent with [...] effects. Assessment & Plan (11/29/2021 10:53 AM SIZING MACHINE OPERATOR): - Bupriopion daily - Plan to titrate with PCP Hematoma 11/26/2021 Assessment & Plan (11/27/2021 12:46 PM SIZING MACHINE OPERATOR): Hematoma of R buttock extending into inner [...] 11/25/2021 Assessment & Plan (11/28/2021 11:24 AM SIZING MACHINE OPERATOR): At OSH INR was 24.1 on 11/24/21 [...] anemia/ Hb drop HFrEF (heart failure with reduced ejection fract ion) 11/24/2021 Assessment & Plan (03/14/2023 9:03 AM CDT): Stable continue Lasix 40 mg. Assessment & Plan (11/27/2021 3:22 PM SIZING MACHINE OPERATOR): Reportedly LVEF 40% (last echo on file is in 2015). On home metop 50 daily, spironolactone 12.5 (?) daily, furosemide 40mg daily. -Received records from her salad bar clerk: Last echo Sep- EF 55-60%, mild LVH, [...] list of meds- she last saw her salad bar clerk 1.5 yrs ago and she has ED visits since then; might need to get records from PCP - BMP daily T2DM (type 2 diabetes mellitus) 11/24/2021 Assessment & Plan (11/26/2021 1:25 PM SIZING MACHINE OPERATOR): Reportedly on long-acting insulin and glimepride 2mg BID, although not sure of dose. Was hyperglycemic to 355 at OSH. - glargine 8U QHS - SSI - sugars in good control Hypertension 11/24/2021 Assessment & Plan (12/18/2024 7:29 AM CDT): Stable continue lisinopril Assessment & Plan (06/10/2024 9:49 AM CDT): Stable continue lisinopril Assessment & Plan (04/04/2023 9:23 AM CDT): Stable continue lisinopril 10 mg. Assessment & Plan (03/14/2023 9:03 AM CDT): Stable continue lisinopril 10 mg. Assessment & Plan (02/21/2023 7:43 AM CDT): Stable continue metoprolol 50 mg. Assessment & Plan (11/27/2021 12:42 PM SIZING MACHINE OPERATOR): Home meds amlodipine 5, others per HFrEF. - Held all antihypertensives until active bleeding ruled out - Normotensive, holding meds EXCEPT lasix which we will restart today at a low dose. SKYE (acute kidney injury) 11/24/2021 Assessment & Plan (11/27/2021 3:22 PM SIZING MACHINE OPERATOR): OSH Cr 1.99 from reported b/l 1.5. Unclear if this is SKYE, or SKYE on CKD. - Unknown baseline Creat -Records from Civil Litigation Attorney do not have baseline creat but do have dx of Stage 3 CKD - Cr 1.6 here -> then downtrended to 1.4 after gentle IVF on 11/25 - Leg swelling, restart lasix at low dose of 20 mg daily - CTM, avoid nephrotoxins Acute blood loss anemia 11/24/2021 Assessment & Plan (11/29/2021 10:49 AM SIZING MACHINE OPERATOR): B/l Hgb reportedly ~11, at OSH was [...] PCP. 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 Brian Carson ([facility]) to find out the indication for AC- he says he last saw her 1.5 yr ago, indication is 'PE', but Xarelto was started a few months ago at an ER visit or by PCP. - PCP confirmed history of PE in September of 2019 Vascular calcification 03/13/2016 Carotid bruit 03/13/2016 Chronic coronary artery disease 03/13/2016 Assessment & Plan (11/24/2021 11:10 PM SIZING MACHINE OPERATOR): S/p DICK 2013. On atorva 80, per patient has been off ASA. - Continue atorva 80 Ischemic cardiomyopathy 03/13/2016 Chronic systolic heart failure 03/13/2016 Resolved Problems Problem Noted Date Diagnosed Date Resolved Date Hyperkalemia 11/24/2021 11/26/2021 Assessment & Plan (11/27/2021 12:43 PM SIZING MACHINE OPERATOR): Reportedly 5.8 at OSH, s/p temporization. - K has not been elevated here. K is 4.3 today. Encounters Date Type Department Care Team Description 12/16/2024 9:15 AM CDT Office Visit [facility] at [address] [place] [address] Julio Pop MD Bilateral carotid artery stenosis (Primary Dx); Mixed hyperlipidemia; Primary hypertension 12/16/2024 Orders Only [facility] at [address] [place] [address] Julio Pop MD Bilateral carotid artery stenosis (Primary Dx); Aftercare following surgery of the circulatory system 12/07/2024 9:00 AM CDT Ancillary Procedure [facility] and Ve[facility] Surgery at [address] [address] Bilateral carotid artery stenosis from Last 3 Months Surgical History Surgery Date Site/Laterality Comments CHOLECYSTECTOMY 09/30/1971 - 09/29/1972 APPENDECTOMY HYSTERECTOMY CATARACT EXTRACTION, BILATERAL CARDIAC CATHETERIZATION 2013, 04/18/2023, 1 stent COLONOSCOPY HM MAMMOGRAPHY HM DEXA SCAN Medical History Medical History Date Comments CAD (coronary artery disease) HFrEF (heart failure with re duced ejection fraction) ([facility]) Type 2 diabetes mellitus (HCC) Hypertension History of pulmonary embolus (PE) 11/24/2021 right side if lung CHF (congestive heart failure) (HCC) History of WV (myocardial infarction) 2013 History of bronchitis History [...] week 05/02/2023 How often do you attend [facility] or muslim services? Never 05/02/2023 Do you belong to any clubs o r organizations such as episcopalian groups, unions, fraternal or athletic groups, or [...] on file Legal Sex Female 8:29 AM SIZING MACHINE OPERATOR Gender Identity Not on file Sexual Orientation Not on file Obstetrics History Last Filed Vital Signs Vital Sign Reading Time Taken Comments Blood Pressure 148/79 12/16/2024 9:07 AM CDT Pulse 71 12/16/2024 9:07 AM CDT Temperature 37 C (98.6 F) 05/02/2023 12:19 PM CDT Respiratory Rate 16 05/02/2023 12:19 PM CDT Oxygen Saturation 96% 12/16/2024 9:07 AM CDT Inhaled Oxygen Concentration - - Weight 57.8 kg (127 lb 6.4 oz) 12/16/2024 9:07 A M CDT Height 152.4 cm (5') 12/16/2024 9:07 AM CDT Body Mass Index 24.88 12/16/2024 9:07 AM CDT Plan of Treatment Health Maintenance Due Date Last Done Comments Albumin Creatinine Ratio, Urine 1945 Depression Screening 1945 Hepatitis C Screening 1945 Osteoporosis Screening-Bone Density Scan 1945 Dilated Eye Exam 1945 Foot Exam 1945 DTaP/Tdap/Td Vaccine (1 - Tdap) 12/18/1958 Hepatitis B Screening 12/18/1965 Zoster Vaccine (1 of 2) 12/18/1997 Well Visit 65+ 12/18/2012 Lipid Panel 11/24/2022 11/24/2021 Hemoglobin A1C 11/04/2023 05/04/2023, 03/31, 11/25/2021 Fall Risk Assessment 05/02/2024 05/02/2023 eGFR 05/02/2024 05/02/2023, 08/0 10/2022, 04/25/2023, Additional history exists Covid-19 Vaccine (2023-2 [...] history exists Medical Devices Implanted Type Area Net Lead Architect Device Identifier Shelf Expiration Date Model / Serial / Lot Stent Heart Selltag Patch Vascuguard 0.88cm [id number] - [id number] Implanted:Qty: 1 on 04/30/2023 by Julio Pop MD at [facility] Left: Neck Selltag [id number] 12/05/2023 [id number] / / [id number] Procedures Procedure Name Priority Date/Time Associated Diagnosis Comments US CAROTIDS DUPLEX BILATERAL Schedule Routine, Read Routine (OP Routine) 12/07/2024 9:38 AM CDT Bilateral carotid artery stenosis EGFR Routine 05/02/2023 7:06 AM CDT HEMOGLOBIN A1C Routine 04/25/2023 11:47 AM CDT Type 2 diabetes mellitus without complication, with long-term current use of insulin (HCC) LIPID PANEL Routine 11/24/2021 9:43 PM SIZING MACHINE OPERATOR COLONOSCOPY REPORT 10/25/2016 from Last 3 Months or Most Recently Relevant to Health Maintenance Results * US Carotids Duplex Bilateral (12/07/2024 9:38 AM CDT) Anatomical Region Laterality Modality Vascular Bilateral Ultrasound 12/07/2024 8:57 AM CDT Narrative 12/07/2024 4:01 PM CDT Vascular & Vein Surgery [address] [place] [address] Carotid Duplex Ultrasound Report Patient Name: RAFA FOSTER L : 1945 (78y 11m) Study Date: 12/07/2024 8:57:54 AM Gender: F Communication Electronic Technician: IVC Location: [facility] Ref Provider: JULIO POP Quality: Adequate Order Provider: JULIO POP PROCEDURES: Carotid Report: Carotid duplex examination of the extracranial arteries was performed using 2D, color and spectral Doppler. INDICATIONS: S/P Lt CEA 04/30/23. HISTORY: HTN. HLD. DM. CAD- WV. CHF. PE. COMPARISONS: The previous exam was completed on 05/27/24. Compared to prior there is slight increase in velocities bilaterally. MEASUREMENTS: Right Value Left Value RT Prox CCA PSV 57 cm/sec LT Prox CCA PSV 73 cm/sec RT Prox CCA EDV 10 cm/sec LT Prox CCA EDV 16 cm/sec RT Distal CCA PSV 50 cm/sec LT Distal CCA PSV 67 cm/sec RT Distal CCA EDV 10 cm/sec LT Distal CCA EDV 12 cm/sec RT Prox ICA PSV 103 cm/sec LT Prox ICA PSV 138 cm/sec RT Prox ICA EDV 22 cm/sec LT Prox ICA EDV 37 cm/sec RT Mid ICA PSV 201 cm/sec LT Mid ICA PSV 124 cm/sec RT Mid ICA EDV 43 cm/sec LT Mid ICA EDV 33 cm/sec RT Distal ICA PSV 139 cm/sec LT Distal ICA PSV 105 cm/sec RT Distal ICA EDV 30 cm/sec LT Distal ICA EDV 28 cm/sec RT ECA Prx PSV 86 cm/sec LT ECA Prx PSV 80 cm/sec RT ICA/CCA 2.06 ratio LT ICA/CCA 2.06 ratio Rt Vert Dst PSV 78 cm/sec Lt Vert Dst PSV 29 cm/sec FINDINGS: Rt Common Carotid Artery: Duplex imaging of the right common carotid artery is within normal limits without evidence of atherosclerotic disease. Rt Internal Carotid Artery: The plaque in the right internal carotid artery appears to be heterogeneous, calcified and irregular. Significant atherosclerotic changes of the right internal carotid artery with elevated peak systolic velocity and end diastolic velocity, as above. 50-69% stenosis. Tortuous mid to distal. Rt External Carotid Artery: Patent right external carotid artery with evidence of atherosclerotic disease present. Rt Vertebral Artery: The right vertebral artery is patent with antegrade flow. Lt Common Carotid Artery: Duplex imaging of the left common carotid artery is within normal limits without evidence of atherosclerotic disease. Lt Internal Carotid Artery: The plaque in the left internal carotid artery appears to be heterogeneous and smooth. Significant atherosclerotic changes of the left internal carotid artery with elevated peak systolic velocity and end diastolic velocity, as above. 50-69% stenosis. Tortuous mid to distal. Lt External Carotid Artery: Patent left external carotid artery with evidence of atherosclerotic disease present. Lt Vertebral Artery: The left vertebral artery is patent with antegrade flow. Comments: Brachial artery systolic pressure is 144 on the right, 149 on the left. CONCLUSIONS: 1. The right internal carotid artery disease is consistent with moderate 50-69% stenosis. 2. The left internal carotid artery disease is consistent with moderate 50-69% stenosis. ATTESTATION: I have reviewed and interpreted the pertinent images and measurements of this study. I attest to the conclusions in the final report that is provided above. Electronically Signed By: Julio Pop MD 12/07/2024 3:12:09 PM CDT Procedure Note Julio Pop MD - 12/07/2024 Vascular & Vein Surgery [address] [place] [address] Carotid Duplex Ultrasound Report Patient Name: RAFA FOSTER L : 1945 (78y 11m) Study Date: 12/07/2024 8:57:54 AM Gender: F Communication Electronic Technician: VIC Location: [facility] Ref Provider: JULIO POP Quality: Adequate Order Provider: JULIO POP PROCEDURES: Carotid Report: Carotid duplex examination of the extracranial arterieswas performed using 2D, color and spectral Doppler. INDICATIONS: S/P Lt CEA 04/30/23. HISTORY: HTN. HLD. DM. CAD- WV. CHF. PE. COMPARISONS: The previous exam was completed on 05/27/24. Compared to prior there isslight increase in velocities bilaterally. MEASUREMENTS: Right Value Left Value RT Prox CCA PSV 57 cm/sec LT Prox CCA PSV 73 cm/sec RT Prox CCA EDV 10 cm/sec LT Prox CCA EDV 16 cm/sec RT Distal CCA PSV 50 cm/sec LT Distal CCA PSV 67 cm/sec RT Distal CCA EDV 10 cm/sec LT Distal CCA EDV 12 cm/sec RT Prox ICA PSV 103 cm/sec LT Prox ICA PSV 138 cm/sec RT Prox ICA EDV 22 cm/sec LT Prox ICA EDV 37 cm/sec RT Mid ICA PSV 201 cm/sec LT Mid ICA PSV 124 cm/sec RT Mid ICA EDV 43 cm/sec LT Mid ICA EDV 33 cm/sec RT Distal ICA PSV 139 cm/sec LT Distal ICA PSV 105 cm/sec RT Distal ICA EDV 30 cm/sec LT Distal ICA EDV 28 cm/sec RT ECA Prx PSV 86 cm/sec LT ECA Prx PSV 80 cm/sec RT ICA/CCA 2.06 ratio LT ICA/CCA 2.06 ratio Rt Vert Dst PSV 78 cm/sec Lt Vert Dst PSV 29 cm/sec FINDINGS: Rt Common Carotid Artery: Duplex imaging of the right common carotidartery is within normal limits without evidence of atherosclerotic disease. Rt Internal Carotid Artery: The plaque in the right internal carotidartery appears to be heterogeneous, calcified and irregular. Significant atheroscleroticchanges of the right internal carotid artery with elevated peak systolic velocity and enddiastolic velocity, as above. 50-69% stenosis. Tortuous mid to distal. Rt External Carotid Artery: Patent right external carotid artery withevidence of atherosclerotic disease present. Rt Vertebral Artery: The right vertebral artery is patent with antegradeflow. Lt Common Carotid Artery: Duplex imaging of the left common carotid arteryis within normal limits without evidence of atherosclerotic disease. Lt Internal Carotid Artery: The plaque in the left internal carotid arteryappears to be heterogeneous and smooth. Significant atherosclerotic changes of the leftinternal carotid artery with elevated peak systolic velocity and end diastolicvelocity, as above. 50-69% stenosis. Tortuous mid to distal. Lt External Carotid Artery: Patent left external carotid artery withevidence of atherosclerotic disease present. Lt Vertebral Artery: The left vertebral artery is patent with antegradeflow. Comments: Brachial artery systolic pressure is 144 on the right, 149 onthe left. CONCLUSIONS: 1. The right internal carotid artery disease is consistent with [id number]% stenosis. 2. The left internal carotid artery disease is consistent with qxgorvaz54-00% stenosis. ATTESTATION: I have reviewed and interpreted the pertinent images and measurements ofthis study. I attest to the conclusions in the final report that is provided above. Electronically Signed By: Julio Pop MD 12/07/2024 3:12:09 PM CDT Julio Pop MD IMG US PROCEDURES Final Result * eGFR (05/02/2023 7:06 AM CDT) eGFR [...] LAB BLOOD ORDERABLES Final Re sult [facility] [address] [facility] Department [place] [address] * (ABNORMAL) Hemoglobin A1c (04/25/2023 11:47 AM CDT) Hgb A1C 7.5(H) 4.0 - 5.6 % [facility] Estimated Average Glucose 169 mg/dL [facility] Comment: The ADA recommends reporting an estimated Average Glucose (eAG) with all Hemoglobin A1c results using the equation derived from a study of 507 normal and diabetic adults. Minority populations were underrepresented and children were not included. (Diabetes Care 31:8407-3708, 2008). The eAG is not equivalent to a fasting glucose. Blood 04/25/2023 11:4 7 AM CDT 04/25/2023 12:48 PM CDT us Julio Pop MD LAB BLOOD ORDERABLES Final Resul t [facility] [address] [facility] Department [place] [address] * (ABNORMAL) Lipid panel (11/24/2021 9:43 PM SIZING MACHINE OPERATOR) Cholesterol 126 30 - 199 mg/dL [facility] Comment: Interpretive Data Ages < or = [...] revised on 2018. Triglycerides 243(H) <=149 mg/dL [facility] Comment: Interpretive Data Ages < or = [...] on 2018. HDL 26(L) >=40 mg/dL [facility] Comment: Interpretive Data Ages < or = [...] 2018. LDL, calculated 51 <=129 mg/dL [facility] Comment: Interpretive Data Ages < or = [...] revised on 2018. Non-HDL Cholesterol 100 mg/dL [facility] Comment: Interpretive Data Ages < or = [...] revised on 2018. Chol/HDL ratio 5 [facility] Blood 11/24/2021 9:43 PM SIZING MACHINE OPERATOR 11/24/2021 10:53 PM SIZING MACHINE OPERATOR us Dahlia Moseley MD LAB BLOOD ORDERABLES Final Result [facility] Department of Laboratories [place], [place] [id number] * COLONOSCOPY REPORT (10/25/2016) Anatomical Region Laterality Modality Other Narrative 10/25/2016 Ordered by an unspecified provider. us Historical Provider GI PROCEDURE ORDERABLES F inal Result from Last 3 Months or Most Recently Relevant to Health Maintenance Insurance [facility] Address: [address] [address] [place] [phone] [employer] MEDICARE ADVANTAGE [facility] Address: [address] [address] [place] [phone] [employer] MEDICARE ADVANTAGE Advance Directives For more information, please contact: [phone] Documents on File Type Date Recorded Patient Zinc Chloride Operator Expl anation Power of Flour Mixer 04/30/2023 7:55 AM * Full Code (Latest Code Status on File) Date Activated Date Inactivated Comments 04/30/2023 5:05 PM 05/02/2023 8:36 PM * Full Code Date Activated Date Inactivated Comments 11/24/2021 9:19 PM 11/29/2021 8:19 PM Care Teams Research And Evaluation Manager Relationship Specialty Start Date End Date Neftali Torres MD PCP - General 01/18/17 Brian Carson DO [address] [facility] [address] [place] [address] Referring Physician Cardiology 04/25/23
--- OUTSIDE RECORDS SUMMARY | 2024-12-24 12:59 | XMS_ITS | Data Portability ---
Author Organization [facility] [employer], Main Office Address [address] [place] [address] Care Team Providers Care Clay Washer Name Role Phone JULIO FLORENCE Referring Provider [phone] TAWANDA CANNON Primary Care Provider Assessment No assessment recorded. Plan of Treatment Reminders Order Date Submit Date Provider Last Modified By Organization Details Last Modified Time Details Appointments None recorded. Lab None recorded. Referral endocrinolo gy referral - also had recent finding of left adrenal adenoma from CT scan in May 072022 023 [email or web address] Yin Jackson MD, [address],, [address], [address], 3 12:21:26 Procedures None recorded. Surgeries None recorded. Imaging None recorded. Medication Orders Jardiance 25 mg tablet 2022 023 [facility], [address] [place], [address], 3 12:03:55 Patient TargetsNo targets recorded. Patient InstructionsNo instructions recorded. Reason for Referral Endocrinology Referral for U ncontrolled type 2 diabetes mellitus also had recent finding of left adrenal adenoma from CT scan in April Referring Physician: Jsesica Zelaya, Endocrinology, Encounter Date: 05/10/2023 Results Created Date Observation Date Name Description Value Unit Range Abnormal Flag Note LastModifiedBy Organization Detail LastModifiedTime Result Notes None recorded. Problems Name Problem SNOMED Code Status Onset Date Resolution Date Notes Provider Name and Address Organization Details Recorded Time Benign essential hypertension 3249280 Active Not Available [facility] 3 20:31:15 Hypoglycemia 455982688 Active Not Available [facility] 3 20:31:15 Type 2 diabetes mellitus without complication 641045535 Active Not Available [facility] 3 20:31:15 Vitamin D deficiency 11640916 Active Not Available [facility] 3 20:31:15 Depressive disorder 58088017 Active 2021 Not Available [facility] 3 20:31:15 Sinusitis 48745257 Active Not Available [facility] 3 20:31:15 Dyslipidemia 668987234 Active 2021 Not Available [facility] 3 20:31:15 Osteoarthriti s 664733810 Active Not Available [facility] 3 20:31:15 Uncontrolled type 2 diabetes mellitus 450335854 Active Not Available [facility] 3 20:31:15 Anxiety 10385141 Active Not Available [facility] 3 20:31:15 Adrenal adenoma 088719620 Active 2022 Jessica Zelaya MD [address] [place] [address], [address] , [facility] [email or web address] 3 13:34:42 Notes:Some problems listed i n Document: #[id number] could not be added to this patient's chart. Please review this document and add these problems to the patient's chart manually as needed. Problem Notes None recorded. Medical Equipment None Reported. Allergies Allergen ID Allergen Name Allergen Category Reaction Reaction Severity Criticality Documentation Date Start Date Code Code System Note Provider Name and Address Organization Details Recorded Time 54769 codeine medicatio n Not available Not available Not available 11/28/2022 2670 RxNorm Not Available [facility] 3 15:13:42 Medications Name Sig Start Date [...] Not Available Not Available Not Available metoclopram nicohle 10 mg tablet 05/08 completed Not Available [...] active Not Available Not Available Not [employer] labangela Tresiba FlexTouch U-100 insulin 100 unit/mL (3 [...] Available No t Available [employer] Anne-Marie 2 [place] USE DIRECTED active Not Available Not Available No t Available Vitals Date Recorded Body mass index (BMI) Body height Oxygen saturation Oxygen saturation in Arterial blood by Pulse oximetry Heart rate Respiratory rate Body temperature Body weight Systolic blood pressure Diastolic blood pressure Provider Name and Address Organization Details Last Updated DateTime 1 30 kg/m2 154.94 cm 96 % 96 % 78 /min 16 /min 98.9 [degF] 57855.1 9 g 140 mm[Hg] 72 mm[Hg] Not Available [facility] 3 15:12:20 Date Recorded Body mass index (BMI) Body height Oxygen saturation Oxygen saturation in Arterial blood by Pulse oximetry Heart rate Body temperature Body weight Systolic blood pressure Diastolic blood pressure Provider Name and Address Organization Details Last Updated DateTime 2 28.3 kg/m2 154.94 cm 98 % 98 % 67 /min 97.7 [degF] 43803.8 6 g 120 mm[Hg] 70 mm[Hg] Not Available [facility] 3 15:12:20 Date Recorded Body mass index (BMI) Body height Oxygen saturation Oxygen saturation in Arterial blood by Pulse oximetry Heart rate Body temperature Body weight Systolic blood pressure Diastolic blood pressure Provider Name and Address Organization Details Last Updated DateTime 2 28.3 kg/m2 154.94 cm 99 % 99 % 55 /min 97.7 [degF] 42137.8 6 g 140 mm[Hg] 60 mm[Hg] Not Available [facility] 3 15:12:20 Date Recorded Body mass index (BMI) Body height Oxygen saturation Oxygen saturation in Arterial blood by Pulse oximetry Heart rate Respiratory rate Body temperature Body weight Systolic blood pressure Diastolic blood pressure Provider Name and Address Organization Details Last Updated DateTime 3 29.7 kg/m2 154.94 cm 98 % 98 % 68 /min 17 /min 97.8 [degF] 94766 g 128 mm[Hg] 74 mm[Hg] Not Available [facility] 3 15:12:20 Date Recorded Body height Body mass index (BMI) Body weight Heart rate Systolic blood pressure Diastolic blood pressure Provider Name and Address Organization Details Last Updated DateTime 3 154.94 cm 30 kg/m2 10788.4 7 g 85 /min 118 mm[Hg] 64 mm[Hg] Zaira Sylvester [facility] [employer] [facility] 3 11:59:21 Social History Question Answer Notes LastModified by Organizat ion Details LastModified Time Tobacco Smoking Status Never Smoker Not Available [facility] 11/28/2022 15:12:00 What Is Your Level Of Alcohol Consumption? None [id number] Information not available 11/28/2022 Sex: Unknown Functional Status None recorded. Mental Status None recorded. Family History Nothing Reported. Medical History Condition Response HAVE YOU BEEN HOSPITALIZED OR SEEN IN [facility] IN THE PAST YEAR ? Y DIABETES, TYPE Y Gynecological HistoryNo gynecological history recorded. Obstetrics History GPAL:G 0 P 0 0 0 0 Immunizations Vaccine Type Date Status Note Provider Nam e and Address Organization Details Recorded Time Influenza, high-dose, trivalent, PF 4 completed Not Available [facility] 01/17/2023 20:31:15 Influenza, split virus, quadrivalent, PF 4 completed Not Available [facility] 01/17/2023 20:31:15 Pneumococcal conjugate PCV 13 4 completed Not Available [facility] 01/17/2023 20:31:15 Past Encounters Encounter ID Performer Location Encounter Start Date Encounter Closed Date Diagnosis/Indication Diagnosis SNOMED-CT Code Diagnosis ICD10 Code Diagnosis Note [id number] [facility] [address] [place] [address] 08/07/2021 00:00:00 08/07/2021 16:41:23 [id number] [facility] [address] [place] [address] 01/30/2022 00:00:00 01/30/2022 15:35:12 [id number] [facility] [address] [place] [address] 05/08/2022 00:00:00 05/08/2022 14:37:16 [id number] [facility] [address] [place] [address] 11/22/2022 00:00:00 11/22/2022 22:11:12 [id number] Jessica Zelaya MD [facility] [address] [place] [address] 05/10/2023 11:28:58 05/10/2023 12:21:26 Uncontrolled type 2 diabetes mellitus 334634388 E11.65 [facility] A1C likely [...] endocrinol ogy per patient request Adrenal adenoma [id number] 8 D35.[address] abdomen from recent [facility] in April. Patient provided referral [...] Sharma Member ID Guarantor Name 05/10/2023 1 [facility] (MEDICARE REPLACEMENT/A DVANTAGE - HMO) [id number] Tran Bryan [id number] Tran Bryan Notes Date Note Type Note [...] mg/dLdenies any hypoglycemia. Jessica Zelaya MD [address] [facility], [facility] [address], [place], [address], [facility] [employer] 05/10/2023 13:35:42 OBGyn Episode No OBEpisode recorded.
--- OUTSIDE RECORDS SUMMARY | 2024-12-24 12:59 | XMS_ITS | Clinical Summary ---
Author Organization [facility] Address [address] [place] [address] Care Team Providers Care Business Resiliency Manager Name Role Phone Unavailable Primary Care Provider [...]
--- OUTSIDE RECORDS SUMMARY | 2024-12-24 12:59 | XMS_ITS | Clinical Summary ---
Author Organization [facility] Jimena lucio [facility] Address [address] [place] [address] Care Team Providers Care Face Burler Name Role Phone Neftali Torres MD Primary Care Provider [phone] Allergies Active Allergy Reactions Criticality Noted Date [...] Date Type Department Care Team Description 12/16/2024 External Device Data [facility] ABSTRACTION Provider, Abstract 12/05/2024 External Device Data [facility] Provider, Abstract 12/04/2024 External Device Data [facility]STRA[facility] Provider, Abstract 12/02/2024 External Device Data [facility] Provider, Abstract 12/01/2024 External Device Data [facility] Provider, Abstract 12/01/2024 External Device Data [facility] Provider, Abstract 11/17/2024 External Device Data [facility]STRACTION Provider, Abstract 11/13/2024 [facility] - [place] [address] [address] [place] [address] Srinivas Horn MD 10/22/2024 External Device Data [facility]STRACTION Provider, Abstract 10/21/2024 External Device Data [facility] Provider, Abstract 10/20/2024 External Device Data [facility]STRA[facility] Provider, Abstract 10/13/2024 External Device Data [facility]STRACTION Provider, Abstract from Last 3 Months Family History Medical [...] (1 - Tdap) 12/18/1966 PNEUMOCOCCAL VACCINE 50+ YEA RS (1 of 2 - PCV) 12/18/1966 ZOSTER VACCINE (1 of 2) 12/18/1997 OSTEOPOROSIS SCREENING 12/18/2012 RSV VACCINE (60+ or ) (1 - 1-dose 75+ series) 12/18/2022 DIABETES HBA1C Q 6 MONTHS 11/04/20232022, 04/25/2023, 11/25/2021 INFLUENZA VACCINE (#1) 2024 Insurance Care Teams Face Burler Relationship Specialty Start Date End Date Neftali Torres MD [address] [place] [address] PCP - General Internal Medicine 02/23/22
--- OUTSIDE RECORDS SUMMARY | 2024-12-24 12:59 | XMS_ITS | Clinical Summary ---
Author Organization [facility] Address [address] [facility] [place] [address] Care Team Providers Care Cut Off Saw Operator Metal Name Role Phone Neftali Torres MD Primary Care Provider Source Comments [facility],non-owned Affiliates and Associated Physician Practices is amultiple site organization consisting of ambulatory clinics and hospital sitesin [place], [place], [place] and [place]. This disclosure is being madepursuant to the Care Everywhere program and may not contain all information available regarding this patient. Last updated 18.[facility] Allergies Active Allergy Reactions Criticality Noted Date [...] mellitus) 09/19/2024 HTN (hypertension) 09/19/2024 Major depressive disorder, single episode, moder ate 09/19/2024 Anxiety 09/19/2024 Fall, initial encounter 09/14/2024 Acute pulmonary edema 05/03/2023 SOB (shortness of breath) 05/03/2023 Hypoxia 05/03/2023 Acute respiratory failure with hypoxia Elevated troponin 05/03/2023 Family History Medical History Relation Name Comments [...] and heating? Not hard at all 09/15/2024 [facility] [place] [facility] Occupat ional Health - Occupational Stress [...] any time in the past 12 m [facility], were you homeless or living in a [facility] (including now)? No 09/15/2024 Sex and Gender Information Value Date Recorded Sex Assigned at Not on file Gender Identity Not on file Sexual Orientation Not on file Last Filed Vital Signs Vital Sign Reading Time Taken Comments Blood Pressure 154/83 09/19/2024 12:11 PM [employer] Pulse 86 09/19/2024 12:11 PM [employer] Temperature 37 C (98.6 F) 09/19/2024 12:11 PM [employer] Respiratory Rate 14 09/19/2024 8:30 AM [employer] Oxygen Saturation 94% 09/19/2024 12:11 PM [employer] Inhaled Oxygen Concentration - - Weight 61.7 kg (136 lb) 09/19/2024 4:00 AM [employer] Height 152.4 cm (5') 09/15/2024 1:00 AM [employer] Body Mass Index 26.56 09/15/2024 1:00 AM [employer] Plan of Treatment Health Maintenance Due Date Last Done Comments BONE DENSITY TESTING 1945 HEPATITIS C SCREENING 12/14/1965 DTAP/TDAP/TD VACCINES (1 - Tdap) 12/18/1966 PNEUMOCOCCAL VACCINE 50+ (1 of 2 - PCV) 12/18/1966 DIABETES-STATIN 1987 ZOSTER VACCINE (1 of 2) 12/18/1997 Respiratory Syncytial Virus (RSV) Vaccine Pt: or over 60 yrs (1 - 1-dose 75+ series) 12/18/2022 COVID-19 VACCINE ( season) 2024 09/21/2021, 01/20/2021, 12/23/2020 INFLUENZA VACCINE [...] complete this topic MENINGOCOCCAL (Group B) VACCINE SHARED DECISION-MAKING Aged Out No longer eligible based on patient's age to complete this topic MENINGOCOCCAL GROUPS A/C/Y/W VACCINE Aged Out No longer eligible based on patient's age to complete this topic Procedures Procedure Name Priority Date/Time Associated Diagnosis Comments BASIC METABOLIC PANEL (CALCIUM TOTAL) AM Draw 09/19/2024 12:36 AM [employer] HEMOGLOBIN A1C Routine 05/04/2023 4:06 AM CDT from Last 3 Months or Most Recently Relevant to Health Maintenance Results * (ABNORMAL) BASIC METABOLIC PANEL (CALCIUM TOTAL) (09/19/2024 12:36 AM [employer]) BUN 61(H) 7 - 26 mg/dL 09/19/2024 1:18 AM [facility] Creatinine 1.31(H) 0.56 - 0.96 mg/dL 09/19/2024 1:18 AM [facility] Sodium 136 136 - 145 mmol/L 09/19/2024 1:18 AM [facility] Potassium 5.0(H) 3.5 - 4.5 mmol/L 09/19/2024 1:18 AM [facility] Chloride 100 98 - 107 mmol/L 09/19/2024 1:18 AM [facility] CO2 30(H) 22 - 29 mmol/L 09/19/2024 1:18 AM [facility] Glucose 268(H) 70 - 99 mg/dL 09/19/2024 1:18 AM [facility] Calcium 9.2 8.4 - 10.2 mg/dL 09/19/2024 1:18 AM [facility] Anion Gap 6 6 - 16 09/19/2024 1:18 AM [facility] BUN/Creatinine Ratio 47(H) 7 - 23 09/19/2024 1:18 AM [facility] Osmolality Calculated 309(H) 275 - 295 mOsm/kg 09/19/2024 1:18 AM [facility] eGFR by CKD-EPI 42(L) >=90 mL/min/1.7 3 m2 09/19/2024 1:18 AM [facility] Blood BLOOD SPECIMEN / Unknown Lab Venipuncture / Unknown 09/19/2024 12:36 AM [employer] 09/19/2024 12:53 AM [employer] Any Mccoy PA-C LAB - CHEMISTRY ORDERABLES Performing Organization Address City/[facility]/ZIP Co de Phone Number [facility] [address] [place] [address], [facility] [phone] * (ABNORMAL) HEMOGLOBIN A1C (05/04/2023 4:06 AM CDT) Hemoglobin A1c 7.8(H) <=5.6 % 05/04/2023 2:37 PM CDT [facility] Estimated Average Glucose 177 mg/dL 05/04/2023 2:37 PM T [facility] Comment: HbA1c Interpretation: Normal : < 5.7% Pre-diabetes: 5.7-6.4% Diabetes: Equal to or greater than 6.5% Test results diagnostic of diabetes should be repeated for confirmation. Treatment target values recommended by ADA and other clinical organizations should be used to evaluate metabolic control in patients. Reference: [place] [employer], Standards of Care in Diabetes [...] Pena MD LAB - CHEMISTRY ORD ERABLES [facility] [address] [place] [address], [facility] [phone] from Last 3 Months or Most Recently Relevant to Health Maintenance Advance Directives * Full Code (Latest Code Status on File) Date Activated Date Inactivated Comments 09/14/2024 3:25 AM 09/19/2024 2:53 PM * Full Code Date Activated Date Inactivated Comments 05/03/2023 5:30 AM 05/05/2023 3:48 PM Care Teams Cut Off Saw Operator [employer] Relationship Specialty Start Date End Date Neftali Torres MD [address] [place] [address] PCP - General 06/05/16
--- OUTSIDE RECORDS SUMMARY | 2024-12-24 12:59 | XMS_ITS | Referral Summary ---
Author Organization [facility] s Address [address] [place] [address] Care Team Providers Care Bariatric Coordinator Name Role Phone Neftali Torres MD Primary Care Provider [phone] Brian Carson DO Unavailable [phone] Encounters Date Type Department Care Team Description 12/16/[address] [facility] Medical Group Vascular at [address] [id number] Julio Pop MD Bilateral carotid artery stenosis (Primary Dx); Aftercare following surgery of the circulatory system 12/16/2024 9:15 AM CDT Office Visit [facility] Group Vascular at [address] [address] Julio Pop MD Bilateral carotid artery stenosis (Primary Dx); Mixed hyperlipidemia; Primary hypertension 12/07/2024 9:00 AM CDT Ancillary Procedure [facility] Vascular and Vein Surgery at [address] [address] Bilateral carotid artery stenosis from Last 3 Months Allergies Active Allergy [...] 600 mg by mouth daily Active omega 5-fzx-omw-fish oil 1,200 (144-216) mg capsule Take 1 [...] duplex. Assessment & Plan (11/27/2023 9:44 AM BULK FLUIDS HANDLER): Left carotid continues to be patent with [...] effects. Assessment & Plan (11/29/2021 10:53 AM BULK FLUIDS HANDLER): - Bupriopion daily - Plan to titrate with PCP Hematoma 11/26/2021 Assessment & Plan (11/27/2021 12:46 PM BULK FLUIDS HANDLER): Hematoma of R buttock extending into inner [...] 11/25/2021 Assessment & Plan (11/28/2021 11:24 AM BULK FLUIDS HANDLER): At OSH INR was 24.1 on 11/24/21 [...] mg. Assessment & Plan (11/27/2021 3:22 PM BULK FLUIDS HANDLER): Reportedly LVEF 40% (last echo on file is in 2015). On home metop 50 daily, spironolactone 12.5 (?) daily, furosemide 40mg daily. -Received records from her desulfurizer operator: Last echo Sep- EF 55-60%, mild LVH, [...] list of meds- she last saw her desulfurizer operator 1.5 yrs ago and she has ED visits since then; might need to get records from PCP - BMP daily T2DM (type 2 diabetes mellitus) 11/24/2021 Assessment & Plan (11/26/2021 1:25 PM BULK FLUIDS HANDLER): Reportedly on long-acting insulin and glimepride 2mg [...] mg. Assessment & Plan (11/27/2021 12:42 PM BULK FLUIDS HANDLER): Home meds amlodipine 5, others per HFrEF. - Held all antihypertensives until active bleeding ruled out - Normotensive, holding meds EXCEPT lasix which we will restart today at a low dose. SKYE (acute kidney injury) 11/24/2021 Assessment & Plan (11/27/2021 3:22 PM BULK FLUIDS HANDLER): OSH Cr 1.99 from reported b/l 1.5. Unclear if this is SKYE, or SKYE on CKD. - Unknown baseline Creat -Records from Gastroenterology Technician do not have baseline creat but do have dx of Stage 3 CKD - Cr 1.6 here -> then downtrended to 1.4 after gentle IVF on 11/25 - Leg swelling, restart lasix at low dose of 20 mg daily - CTM, avoid nephrotoxins Acute blood loss anemia 11/24/2021 Assessment & Plan (11/29/2021 10:49 AM BULK FLUIDS HANDLER): B/l Hgb reportedly ~11, at OSH was [...] PCP. 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 Brian Carson ([facility]) to find out the indication for AC- he says he last saw her 1.5 yr ago, indication is 'PE', but Xarelto was started a few months ago at an ER visit or by PCP. - PCP confirmed history of PE in September of 2019 Vascular calcification 03/13/2016 Carotid bruit 03/13/2016 Chronic coronary artery disease 03/13/2016 Assessment & Plan (11/24/2021 11:10 PM BULK FLUIDS HANDLER): S/p DICK 2013. On atorva 80, per patient has been off ASA. - Continue atorva 80 Ischemic cardiomyopathy 03/13/2016 Chronic systolic heart failure 03/13/2016 Resolved Problems Problem Noted Date Diagnosed Date Resolved Date Hyperkalemia 11/24/2021 11/26/2021 Assessment & Plan (11/27/2021 12:43 PM BULK FLUIDS HANDLER): Reportedly 5.8 at OSH, s/p temporization. - [...] often do you attend chur ch or quaker services? Never 05/02/2023 Do you belong to any clubs o r organizations such as baptist groups, unions, fraternal or athletic groups, or [...] place to sleep or slept in a group home (including now)? No 05/02/2023 Housing Stability Vital [...] on file Legal Sex Female 8:29 AM BULK FLUIDS HANDLER Gender Identity Not on file Sexual Orientation [...] 12/16/2024 9:07 AM CDT Plan of Treatment Not on file Medical Devices Implanted Type Area Sourcing Specialist Device Identifier Shelf Expiration Date Model / Serial / Lot Stent Heart UC CEIN Patch Vascuguard 0.88cm [id number] - [id number] Implanted:Qty: 1 on 04/30/2023 by Julio Pop MD at [facility] Left: Neck [facility] AVA.ai [id number] 12/05/2023 [id number] / / [id number] Procedures Procedure Name Priority Date/Time Associated Diagnosis Comments US CAROTIDS DUPLEX BILATERAL Schedule Routine, Read Routine (OP Routine) 12/07/2024 9:38 AM CDT Bilateral carotid artery stenosis EGFR Routine 05/02/2023 7:06 AM CDT HEMOGLOBIN A1C Routine 04/25/2023 11:47 AM CDT Type 2 diabetes mellitus without complication, with long-term current use of insulin (HCC) LIPID PANEL Routine 11/24/2021 9:43 PM BULK FLUIDS HANDLER COLONOSCOPY REPORT 10/25/2016 from Last 3 Months or Most Recently Relevant to Health Maintenance Results * US Carotids Duplex Bilateral (12/07/2024 9:38 AM CDT) Anatomical Region Laterality Modality Vascular Bilateral Ultrasound 12/07/2024 8:57 AM CDT Narrative 12/07/2024 4:01 PM CDT Vascular & Vein Surgery [address] [place] [address] Carotid Duplex Ultrasound Report Patient Name: RAFA FOSTER L : 1945 (78y 11m) Study Date: 12/07/2024 8:57:54 AM Gender: F Head Housekeeper: VIC Location: [facility] Ref Provider: JULIO POP Quality: Adequate Order Provider: JULIO POP PROCEDURES: Carotid Report: Carotid duplex examination of the extracranial arteries was performed using 2D, color and spectral Doppler. INDICATIONS: S/P Lt CEA 04/30/23. HISTORY: HTN. HLD. DM. CAD- NE. CHF. PE. COMPARISONS: The previous exam was [...] MD - 12/07/2024 Vascular & Vein Surgery [address] [place] [id number] Carotid Duplex Ultrasound Report Patient Name: RAFA FOSTER L : 1945 (78y 11m) Study Date: 12/07/2024 8:57:54 AM Gender: F Head Housekeeper: VIC Location: [facility] Ref Provider: JULIO POP Quality: Adequate Order Provider: JULIO POP PROCEDURES: Carotid Report: Carotid duplex examination of the extracranial arterieswas performed using 2D, color and spectral Doppler. INDICATIONS: S/P Lt CEA 04/30/23. HISTORY: HTN. HLD. DM. CAD- NE. CHF. PE. COMPARISONS: The previous exam was [...] internal carotid artery disease is consistent with wyvdhvge46-19% stenosis. 2. The left internal carotid artery disease is consistent with cdnsixqw23-54% stenosis. ATTESTATION: I have reviewed and interpreted the pertinent images and measurements ofthis study. I attest to the conclusions in the final report that is provided above. Electronically Signed By: Julio Pop MD 12/07/2024 3:12:09 PM CDT us Julio Pop MD IM US PROCEDURES Final Result * eGFR (05/02/2023 [...] DO LAB BLOOD ORDERABLES Final Re sult Performing Organization Address [facility] Co de Phone Number [facility] [address] [facility] Department [place] [address] * (ABNORMAL) Hemoglobin A1c (04/25/2023 11:47 AM CDT) [facility] Signature Hgb A1C 7.5(H) 4.0 - 5.6 % [facility] Estimated Average Glucose 169 mg/dL [facility] Comment: The ADA recommends reporting an estimated Average Glucose (eAG) with all Hemoglobin A1c results using the equation derived from a study of 507 normal and diabetic adults. Minority populations were underrepresented and children were not included. (Diabetes Care 31:2465-2056, 2008). The eAG is not equivalent to a fasting glucose. Blood 04/25/2023 11:4 7 AM CDT 04/25/2023 12:48 PM CDT us Julio Pop MD LAB BLOOD ORDERABLES Final Resul t Performing Organization Address City/[facility]/ZIP Co de Phone Number [facility] [address] [facility] Department [place] [address] * (ABNORMAL) Lipid panel (11/24/2021 9:43 PM BULK FLUIDS HANDLER) Cholesterol 126 30 - 199 mg/dL [facility] Comment: Interpretive Data Ages < or [...] revised on 2018. Triglycerides 243(H) <=149 mg/dL [facility] Comment: Interpretive Data Ages < or = [...] revised on 2018. HDL 26(L) >=40 mg/dL [facility] Comment: Interpretive Data Ages < or = [...] on 2018. LDL, calculated 51 <=129 mg/dL [facility] Comment: Interpretive Data Ages < or = [...] revised on 2018. Non-HDL Cholesterol 100 mg/dL [facility] Comment: Interpretive Data Ages < or = [...] last revised on 2018. Chol/HDL ratio 5 [facility] Blood 11/24/2021 9:43 PM BULK FLUIDS HANDLER 11/24/2021 10:53 PM BULK FLUIDS HANDLER Dahlia Moseley MD LAB BLOOD ORDERABLES Final Result [facility] Department [place] [address] * COLONOSCOPY REPORT (10/25/2016) Anatomical Region Laterality Modality Other Narrative 10/25/2016 Ordered by an unspecified provider. us Historical Provider GI PROCEDURE ORDERABLES F inal Result from Last 3 Months or Most Recently Relevant to Health Maintenance Insurance Member Subscriber Plan / Payer (Ef fective 2021-Present) Name:Rafa Foster Relation to Subscriber:Self Name:Rafa Foster Payer ID:[id number] (NAIC) Type:[facility] MEDICARE Address: [address] [id number] UHC MEDICARE ADVANTAGE [facility] MEDICARE ADVANTAGE Advance Directives For more information, please contact: [phone] Documents on File Type Date Recorded Patient Crown Ceramist Expl anation Power of Lawn Specialist 04/30/2023 7:55 AM * Full Code (Latest Code Status on File) Date Activated Date Inactivated Comments 04/30/2023 5:05 PM 05/02/2023 8:36 PM * Full Code Date Activated Date Inactivated Comments 11/24/2021 9:19 PM 11/29/2021 8:19 PM Care Teams Bariatric Coordinator Relationship Specialty Start Date End Date Neftali Torres MD PCP - General 01/18/17 Brian Carson DO [address] [place] [address] Referring Physician Cardiology 04/25/23
--- OUTSIDE RECORDS SUMMARY | 2024-12-24 12:59 | XMS_ITS | Clinical Summary ---
Author Organization [facility] Address [address] [place] [address] Phone Care Team Providers Care Life Science Teacher Name Role Phone Neftali Torres MD Primary Care Provider [phone] Allergies Active Allergy Reactions Criticality Noted Date [...] Department Care Team Description 10/19/2024 12:30 PM ELECTRICAL CAD TECHNICIAN Home Care Visit [address] [address] Kirsten Camarillo, PT PT - OASIS DISCHARGE 10/15/2024 11:00 AM ELECTRICAL CAD TECHNICIAN Home Care Visit [address] [address] Shakira Torrez, OTR REFRIGERATED CDL TRUCK DRIVER PT - HOME VISIT 10/15/2024 10:00 AM ELECTRICAL CAD TECHNICIAN Home Care Visit [address] [address] Bianca Flores OT OT - DISCIPLINE DISCHARGE 10/15/2024 Travel 10/14/2024 1:00 PM ELECTRICAL CAD TECHNICIAN Home Care Visit [address] [address] Shakira Torrez, OTR REFRIGERATED CDL TRUCK DRIVER RESCHEDULED MISSED VISIT 10/13/2024 12:00 PM ELECTRICAL CAD TECHNICIAN Home Care Visit [address] [address] Mallorie Chang ZOILA OT - HOME VISIT 10/12/2024 4:00 PM ELECTRICAL CAD TECHNICIAN Home Care Visit [address] [address] Shakira Torrez, OTR REFRIGERATED CDL TRUCK DRIVER PT - HOME VISIT 10/12/2024 Travel 10/09/2024 10:00 AM ELECTRICAL CAD TECHNICIAN Home Care Visit [address] [address] Shakira Torrez, OTR REFRIGERATED CDL TRUCK DRIVER PT - HOME VISIT 10/09/2024 6:30 AM ELECTRICAL CAD TECHNICIAN Home Care Visit [address] [address] Bianca Flores, OT OT - [place] SUPERVISORY VISIT 10/07/2024 10:00 AM ELECTRICAL CAD TECHNICIAN Home Care Visit [address] [address] Mallorie Chang OTA OT - HOME VISIT 10/07/2024 Travel 10/06/2024 Home Care Visit [address] [address] Bianca Flores, OT CARE CONFERENCE 10/02/2024 10:30 AM ELECTRICAL CAD TECHNICIAN Home Care Visit [address] [address] Mallorie Chang OTA OT - HOME VISIT 10/02/2024 Travel 10/01/2024 11:00 AM ELECTRICAL CAD TECHNICIAN Home Care Visit [address] [address] Shakira Torrez, OTR REFRIGERATED CDL TRUCK DRIVER PT - HOME VISIT 09/28/2024 12:00 PM ELECTRICAL CAD TECHNICIAN Home Care Visit [address] [address] Shakira Torrez, OTR REFRIGERATED CDL TRUCK DRIVER PT - HOME VISIT 09/28/2024 Home Care Visit [address] [address] Nydia Joseph, RN CASE COMMUNICATION 09/28/2024 Home Care Visit [address] [address] Kirsten Camarillo, PT TELEPHONE ENCOUNTER 09/25/2024 11:00 AM ELECTRICAL CAD TECHNICIAN Home Care Visit [address] [address] Kirsten Camarillo, PT PT - INITIAL EVALUATION 09/25/2024 9:30 AM ELECTRICAL CAD TECHNICIAN Home Care Visit [address] [address] Bianca Flores, OT OT - OASIS START OF CARE 09/25/[address] [address] Bianca Flores, OT Medication Management 09/25/2024 Plan of Care Documentation [facility] [address] [place] [address] from Last 3 Months Social History Tobacco Use Types Packs/Day Years Used Date Smoking Tobacco: Never Assessed Comments Unknown Sex and Gender Information Value Date Recorded Sex Assigned at Not on file Legal Sex Female 10:30 AM ELECTRICAL CAD TECHNICIAN Gender Identity Not on file Sexual Orientation Not on file Last Filed Vital Signs Vital Sign Reading Time Taken Comments Blood Pressure 128/80 10/19/2024 12:37 PM ELECTRICAL CAD TECHNICIAN Pulse 86 10/19/2024 12:37 PM ELECTRICAL CAD TECHNICIAN Temperature 36.2 C (97.2 F) 10/19/2024 12:37 PM ELECTRICAL CAD TECHNICIAN Respiratory Rate 18 10/19/2024 12:37 PM ELECTRICAL CAD TECHNICIAN Oxygen Saturation 96% 10/19/2024 12:37 PM ELECTRICAL CAD TECHNICIAN Inhaled Oxygen Concentration - - Weight 57.6 kg (127 lb) 10/19/2024 12:37 PM ELECTRICAL CAD TECHNICIAN Height 149.9 cm (4' 11 ) 09/25/2024 10:45 AM ELECTRICAL CAD TECHNICIAN Body Mass Index 25.65 09/25/2024 10:45 AM ELECTRICAL CAD TECHNICIAN Plan of Treatment Health Maintenance Due [...] to complete this topic Insurance MEDICARE [facility] Advance Directives Documents on File Type Date Recorded Patient Oil Well Logger Expl anation Power of Customer Field Representative for Health Care 09/28/2024 11:33 AM POA 03/24/21 Power of Customer Field Representative for Health Care 09/28/2024 10:29 AM * Full Code (Latest Code Status on File) Date Activated Date Inactivated Comments 09/25/2024 7:25 PM Care Teams Life Science Teacher Relationship Specialty Start Date End Date Neftali Torres MD [address] [place] [address] PCP - General Internal Medicine 11/29/21
--- OUTSIDE RECORDS SUMMARY | 2024-12-24 12:59 | XMS_ITS | CONTINUITY OF CARE DOCUMENT ---
Author Name gideon meneses Address Unknown Organization [facility] Address [address] [facility] [address] [place] [address] Phone [phone] Care Team Providers Care Emergency Crew Supervisor Name Role Phone Tino Shay MD Unavailable GISELA HOLGUIN MD Unavailable [phone] GISELA HOLGUIN MD Unavailable [phone] INSURANCE PROVIDERS Payer name Policy type / Coverage type [employer] party ID [place] MEDICARE Medicare [id number]
== END 2024-12-24 11:46 | disposition home or self-care (01) ==
LOC: CHSIMG 11:46
PROVIDERS: PCP Internal Medicine; Visit Provider Nurse Practitioner Family
DX: Z78.0 Asymptomatic menopausal state (principal); M85.88 Other specified disorders of bone density and structure, other site
CPT/HCPCS: 77080

== ENCOUNTER 2025-03-29 11:51 | Outpatient (CLI) | payer MEDICARE, SELFPAY ==
--- OUTSIDE RECORDS SUMMARY | 2025-03-29 12:02 | XMS_ITS | Referral Summary ---
Author Organization [facility] s Address [address] [place] [address] Care Team Providers Care Structural Steel Ironworker Name Role Phone Neftali Torres MD Primary Care Provider [phone] Brian Carson Nae DO Unavailable Allergies Active Allergy Reactions Criticality Noted Date [...] 600 mg by mouth daily Active omega 2-dei-cgk-fish oil 1,200 (144-216) mg capsule Take 1 [...] duplex. Assessment & Plan (11/27/2023 9:44 AM PACKAGING INSPECTOR): Left carotid continues to be patent with [...] effects. Assessment & Plan (11/29/2021 10:53 AM PACKAGING INSPECTOR): - Bupriopion daily - Plan to titrate with PCP Hematoma 11/26/2021 Assessment & Plan (11/27/2021 12:46 PM PACKAGING INSPECTOR): Hematoma of R buttock extending into inner [...] 11/25/2021 Assessment & Plan (11/28/2021 11:24 AM PACKAGING INSPECTOR): At OSH INR was 24.1 on 11/24/21 [...] mg. Assessment & Plan (11/27/2021 3:22 PM PACKAGING INSPECTOR): Reportedly LVEF 40% (last echo on file is in 2015). On home metop 50 daily, spironolactone 12.5 (?) daily, furosemide 40mg daily. -Received records from her test department helper: Last echo Sep- EF 55-60%, mild LVH, [...] list of meds- she last saw her test department helper 1.5 yrs ago and she has ED visits since then; might need to get records from PCP - BMP daily T2DM (type 2 diabetes mellitus) 11/24/2021 Assessment & Plan (11/26/2021 1:25 PM PACKAGING INSPECTOR): Reportedly on long-acting insulin and glimepride 2mg [...] mg. Assessment & Plan (11/27/2021 12:42 PM PACKAGING INSPECTOR): Home meds amlodipine 5, others per HFrEF. - Held all antihypertensives until active bleeding ruled out - Normotensive, holding meds EXCEPT lasix which we will restart today at a low dose. SKYE (acute kidney injury) 11/24/2021 Assessment & Plan (11/27/2021 3:22 PM PACKAGING INSPECTOR): OSH Cr 1.99 from reported b/l 1.5. Unclear if this is SKYE, or SKYE on CKD. - Unknown baseline Creat -Records from Mirror Department Supervisor do not have baseline creat but do have dx of Stage 3 CKD - Cr 1.6 here -> then downtrended to 1.4 after gentle IVF on 11/25 - Leg swelling, restart lasix at low dose of 20 mg daily - CTM, avoid nephrotoxins Acute blood loss anemia 11/24/2021 Assessment & Plan (11/29/2021 10:49 AM PACKAGING INSPECTOR): B/l Hgb reportedly ~11, at OSH was [...] PCP. 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 Brian Carson ([facility]) to find out the indication for AC- he says he last saw her 1.5 yr ago, indication is 'PE', but Xarelto was started a few months ago at an ER visit or by PCP. - PCP confirmed history of PE in September of 2019 Vascular calcification 03/13/2016 Carotid bruit 03/13/2016 Chronic coronary artery disease 03/13/2016 Assessment & Plan (11/24/2021 11:10 PM PACKAGING INSPECTOR): S/p DICK 2013. On atorva 80, per patient has been off ASA. - Continue atorva 80 Ischemic cardiomyopathy 03/13/2016 Chronic systolic heart failure 03/13/2016 Resolved Problems Problem Noted Date Diagnosed Date Resolved Date Hyperkalemia 11/24/2021 11/26/2021 Assessment & Plan (11/27/2021 12:43 PM PACKAGING INSPECTOR): Reportedly 5.8 at OSH, s/p temporization. - [...] any clubs o r organizations such as oriental orthodox groups, unions, fraternal or athletic groups, or [...] in a senior living (including now)? No 05/02/2023 Housing Stability Vital [...] on file Legal Sex Female 8:29 AM PACKAGING INSPECTOR Gender Identity Not on file Sexual Orientation [...] on file Medical Devices Implanted Type Area National Dedicated Truck Driver Device Identifier Shelf Expiration Date Model / Serial / Lot Stent Heart [employer] Patch Vascuguard 0.88cm [id number] - [id number] Implanted:Qty: 1 on 04/30/2023 by Ebenezer Pop MD at [facility] Left: Neck [employer] Theo [id number] 12/05/2023 [id number] / / [id number] Procedures Procedure Name Priority Date/Time Associated Diagnosis Comments EGFR Routine 05/02/2023 7:06 AM CDT HEMOGLOBIN A1C Routine 04/25/2023 11:47 AM CDT Type 2 diabetes mellitus without complication, with long-term current use of insulin (HCC) LIPID PANEL Routine 11/24/2021 9:43 PM PACKAGING INSPECTOR COLONOSCOPY REPORT 10/25/2016 from Last 3 Months [...] of Race in Diagnosing Kidney Disease, JASN 202). The CKD-EPI equation should not be used for patients with unstable renal function and has not been validated in children and those over 70. Current interpretive data was last reviewed 2021. Blood 05/02/2023 7:06 AM CDT 05/02/2023 7:13 AM CDT us Celina Vogt DO LAB BLOOD ORDERABLES Final Re sult [facility] [address] [facility] [place] [address] * (ABNORMAL) Hemoglobin A1c (04/25/2023 11:47 AM CDT) Hgb A1C 7.5(H) 4.0 - 5.6 % [facility] Estimated Average Glucose 169 mg/dL [facility] Comment: The ADA recommends reporting an estimated Average Glucose (eAG) with all Hemoglobin A1c results using the equation derived from a study of 507 normal and diabetic adults. Minority populations were underrepresented and children were not included. (Diabetes Care 31:4187-9010, 2008). The eAG is not equivalent to a fasting glucose. Blood 04/25/2023 11:4 7 AM CDT 04/25/2023 12:48 PM CDT us Ebenezer Pop MD LAB BLOOD ORDERABLES Final Resul t [facility] [place] [address] * (ABNORMAL) Lipid panel (11/24/2021 9:43 PM PACKAGING INSPECTOR) Cholesterol 126 30 - 199 mg/dL [facility] Comment: Interpretive Data Ages < or = [...] on 2018. Triglycerides 243(H) <=149 mg/dL [facility] Comment: Interpretive Data Ages < or = [...] revised on 2018. HDL 26(L) >=40 mg/dL [facility] Comment: Interpretive Data Ages < [...] on 2018. LDL, calculated 51 <=129 mg/dL [facility] Comment: Interpretive Data Ages < [...] revised on 2018. Non-HDL Cholesterol 100 mg/dL [facility] Comment: Interpretive Data Ages < [...] last revised on 2018. Chol/HDL ratio 5 [facility] Blood 11/24/2021 9:43 PM PACKAGING INSPECTOR 11/24/2021 10:53 PM PACKAGING INSPECTOR Dahlia Moseley MD LAB BLOOD ORDERABLES Final Result [facility] [place] [address] * COLONOSCOPY REPORT (10/25/2016) Anatomical Region Laterality Modality Other Narrative 10/25/2016 Ordered by an unspecified provider. Historical Provider GI PROCEDURE ORDERABLES F inal Result from Last 3 Months or Most Recently Relevant to Health Maintenance Insurance Advance Directives For more information, please contact: [phone] Documents on File Type Date Recorded Patient Concrete Swimming Pool Installer Expl anation Power of Production Packager 04/30/2023 7:55 AM * Full Code (Latest Code Status on File) Date Activated Date Inactivated Comments 04/30/2023 5:05 PM 05/02/2023 8:36 PM * Full Code Date Activated Date Inactivated Comments 11/24/2021 9:19 PM 11/29/2021 8:19 PM Care Teams Structural Steel Ironworker Relationship Specialty Start Date End Date Neftali Torres MD PCP - General 01/18/17 Brian Carson DO [address] [place] [address] Referring Physician Cardiology 04/25/23
--- OUTSIDE RECORDS SUMMARY | 2025-03-29 12:02 | XMS_ITS | Clinical Summary ---
Author Organization [facility] Address [address] [place] [address] Care Team Providers Care Bureau Director Name Role Phone Neftali Torres MD Primary Care Provider [phone] Source Comments [facility],non-owned Affiliates and Associated Physician Practices is amultiple site organization consisting of ambulatory clinics and hospital sitesin [place], [place], [place] and [place]. This disclosure is being madepursuant to the Care Everywhere program and may not contain all information available regarding this patient. Last updated 18.[facility] Allergies Active Allergy Reactions Criticality Noted Date Comments Codeine Other Low 06/05/2016 Hallucinates when taking the medication Tramadol Nausea and/or Vomiting Low 06/05/2016 Medications * Be aware that medications may not be up to date on this document. Alwaysverify current medications with the patient. DULoxetine (Cymbalta) 30 MG capsule Take 1 (one) capsule by mouth once daily Active dapagliflozin propanediol (Farxiga) 10 MG tablet Take 1 (one) tablet by mouth every morning Active ALPRAZolam (Xanax) 0.25 MG tablet Take 1 (one) tablet by mouth at bedtime Active atorvastatin (Lipitor) 80 MG tablet Take 1 (one) tablet by mouth at bedtime 30 tablet 11 3 Active insulin degludec (Tresiba FlexTouch) 100 UNIT/ML pen at bedtime 2 Active furosemide (Lasix) 40 MG tablet Take 1 (one) tablet by mouth 2 times daily 60 tablet 3 Active acetaminophen (Tylenol) 500 MG tablet Take 1 (one) tablet by mouth every 4 hours as needed Maximum allowable Acetaminophen amount = 4 Grams (4000 mg) / 24 hours. 4 Active aspirin (Aspirin) 81 MG chew tablet Take 1 (one) tablet by mouth once daily 4 Active ondansetron, disintegrating, (Zofran ODT) 4 MG tablet Take 1 (one) tablet by mouth every 6 hours as needed for Nausea/Vomiting Allow tablet to dissolve on the tongue 15 tablet 09/19/2024 10:02 AM BASIN FINISH OPERATOR TIG WELDER 4 Active metoprolol succinate XL 24hr (Toprol XL) 50 MG tablet Take 1 (one) tablet by mouth 2 times daily 60 tablet 4 Active polyethylene glycol 3350 (Miralax) 17 g packet Take 17 (seventeen) g by mouth once daily 4 Active simethicone (Mylicon) 80 MG chew tablet Take 1 (one) tablet by mouth 4 times daily as needed for Gas Pain 4 Active cyclobenzaprine (Flexeril) 10 MG tablet Take 1 (one) tablet by mouth 3 times daily as needed for Muscle Spasms 15 tablet 09/19/2024 10:02 AM BASIN FINISH OPERATOR TIG WELDER 4 Active Active Problems Problem Noted Date [...] and heating? Not hard at all 09/15/2024 [facility] - Occupational Stress [...] in a group home (including now)? No 05/03/2023 Housing Stability Vital Sign Answer Sawyer e Recorded In the last 12 months, was t here a time when you were not able to pay the mortgage or rent on time? No 09/15/2024 In the past 12 months, how m any times have you moved where you were living? 0 09/15/2024 At any time in the past 12 m [facility], were you homeless or living in a group home (including now)? No 09/15/2024 Comments Unknown Sex and Gender Information Value Date Recorded Sex Assigned at Not on file Legal Sex Female 5:52 PM BASIN FINISH OPERATOR TIG WELDER Gender Identity Not on file Sexual Orientation Not on file Last Filed Vital Signs Vital Sign Reading Time Taken Comments Blood Pressure 154/83 09/19/2024 12:11 PM BASIN FINISH OPERATOR TIG WELDER Pulse 86 09/19/2024 12:11 PM BASIN FINISH OPERATOR TIG WELDER Temperature 37 C (98.6 F) 09/19/2024 12:11 PM BASIN FINISH OPERATOR TIG WELDER Respiratory Rate 14 09/19/2024 8:30 AM BASIN FINISH OPERATOR TIG WELDER Oxygen Saturation 94% 09/19/2024 12:11 PM BASIN FINISH OPERATOR TIG WELDER Inhaled Oxygen Concentration - - Weight 61.7 kg (136 lb) 09/19/2024 4:00 AM BASIN FINISH OPERATOR TIG WELDER Height 152.4 cm (5') 09/15/2024 1:00 AM BASIN FINISH OPERATOR TIG WELDER Body Mass Index 26.56 09/15/2024 1:00 AM BASIN FINISH OPERATOR TIG WELDER Plan of Treatment Health Maintenance Due Date [...] VACCINE ( season) 2024 09/21/2021, 01/20/2021, 12/23/2020 DIABETES RETINOPATHY SCREENING 09/19/2024 DIABETES-FOOT EXAM WITH MONOFILAMENT 09/19/2024 DIABETES-HGB A1C 09/19/2024 05/04/2023, , 11/25/2021 DEPRESSION SCREENING 09/30/2024 DIABETES - URINE PROTEIN SCREENING 09/30/2024 MEDICARE AWV CALENDAR YEAR 2024 INFLUENZA VACCINE (Season Ended) 2025 08/30/2022, 06/12/2021, 07/17/2019, Additional history exists DIABETES-SERUM CREATININE 09/19/20252023, 09/18/2024, 09/17/2024, Additional history [...] (CALCIUM TOTAL) AM Draw 09/19/2024 12:36 AM BASIN FINISH OPERATOR TIG WELDER HEMOGLOBIN A1C Routine 05/04/2023 4:06 AM CDT from Last 3 Months or Most Recently Relevant to Health Maintenance Results * (ABNORMAL) BASIC METABOLIC PANEL (CALCIUM TOTAL) (09/19/2024 12:36 AM BASIN FINISH OPERATOR TIG WELDER) BUN 61(H) 7 - 26 mg/dL 09/19/2024 1:18 AM [facility] Creatinine 1.31(H) 0.56 - 0.96 mg/dL 09/19/2024 1:18 AM [facility] Sodium 136 136 - 145 mmol/L 09/19/2024 1:18 AM [facility] Potassium 5.0(H) 3.5 - 4.5 mmol/L 09/19/2024 1:18 AM [facility] Chloride 100 98 - 107 mmol/L 09/19/2024 1:18 AM [facility] CO2 30(H) 22 - 29 mmol/L 09/19/2024 1:18 AM [facility] Glucose 268(H) 70 - 99 mg/dL 09/19/2024 1:18 AM [facility] Calcium 9.2 8.4 - 10.2 mg/dL 09/19/2024 1:18 AM [facility] Anion Gap 6 6 - 16 09/19/2024 1:18 AM [facility] BUN/Creatinine Ratio 47(H) 7 - 23 09/19/2024 1:18 AM [facility] Osmolality Calculated 309(H) 275 - 295 mOsm/kg 09/19/2024 1:18 AM [facility] eGFR by CKD-EPI 42(L) >=90 mL/min/1.7 3 m2 09/19/2024 1:18 AM [facility] Blood BLOOD SPECIMEN / Unknown Lab Venipuncture / Unknown 09/19/2024 12:36 AM BASIN FINISH OPERATOR TIG WELDER 09/19/2024 12:53 AM [facility] us Any Mccoy PA-C LAB - CHEMISTRY ORDERAB LES Final Result [facility] [address] [place] [address], [facility] [phone] * (ABNORMAL) HEMOGLOBIN A1C (05/04/2023 4:06 AM CDT) Hemoglobin A1c 7.8(H) <=5.6 % 05/04/2023 2:37 PM CDT [facility] Estimated Average Glucose 177 mg/dL 05/04/2023 2:37 PM T [facility] Comment: HbA1c Interpretation: Normal : < 5.7% Pre-diabetes: 5.7-6.4% Diabetes: Equal to or greater than 6.5% Test results diagnostic of diabetes should be repeated for confirmation. Treatment target values recommended by ADA and other clinical organizations should be used to evaluate metabolic control in patients. Reference: [place] [employer], Standards of Care in Diabetes -2020 In patients 70 years and older consider HbA1c target range of 7.0-7.5% (Reference: Shakir Parada et al. JAMDA. 2012) The Sebia assay for the measurement of HbA1c is a National Glycohemoglobin Standardization Program (NGSP) certified method. Blood BLOOD SPECIMEN / Unknown Lab Venipuncture / Unknown 05/04/2023 4:06 AM CDT 05/04/2023 5:25 AM CDT us Ru Pena MD LAB - CHEMISTRY ORDERABLES Final Result [facility] [address] [place] [address], [place] [phone] from Last 3 Months or Most Recently Relevant to Health Maintenance Insurance [facility] MANAGED MEDICARE FORMERLY [facility] MEDICARE [facility] [place] [address] Advance Directives * Full Code (Latest Code Status on File) Date Activated Date Inactivated Comments 09/14/2024 3:25 AM 09/19/2024 2:53 PM * Full Code Date Activated Date Inactivated Comments 05/03/2023 5:30 AM 05/05/2023 3:48 PM Care Teams Bureau Director Relationship Specialty Start Date End Date Neftali Torres MD [address] [place] [address] PCP - General 06/05/16
--- OUTSIDE RECORDS SUMMARY | 2025-03-29 12:02 | XMS_ITS | Clinical Summary ---
Author Organization [facility] Address [address] [place] [address] Care Team Providers Care Spray Painter Helper Name Role Phone Neftali Torres MD Primary Care Provider [phone] Brian Carson Nae DO Unavailable [phone] Allergies Active Allergy Reactions Criticality Noted Date [...] 600 mg by mouth daily Active omega 0-ecf-llg-fish oil 1,200 (144-216) mg capsule Take 1 [...] duplex. Assessment & Plan (11/27/2023 9:44 AM BATCH AND FURNACE MANAGER): Left carotid continues to be patent with [...] AM CDT): Previously being evaluated by Dr. oRthman, patient reports known high-grade stenosis. Carotid duplex [...] effects. Assessment & Plan (11/29/2021 10:53 AM BATCH AND FURNACE MANAGER): - Bupriopion daily - Plan to titrate with PCP Hematoma 11/26/2021 Assessment & Plan (11/27/2021 12:46 PM BATCH AND FURNACE MANAGER): Hematoma of R buttock extending into inner [...] 11/25/2021 Assessment & Plan (11/28/2021 11:24 AM BATCH AND FURNACE MANAGER): At OSH INR was 24.1 on 11/24/21 [...] mg. Assessment & Plan (11/27/2021 3:22 PM BATCH AND FURNACE MANAGER): Reportedly LVEF 40% (last echo on file is in 2015). On home metop 50 daily, spironolactone 12.5 (?) daily, furosemide 40mg daily. -Received records from her dental office assistant: Last echo Sep- EF 55-60%, mild LVH, [...] list of meds- she last saw her dental office assistant 1.5 yrs ago and she has ED visits since then; might need to get records from PCP - BMP daily T2DM (type 2 diabetes mellitus) 11/24/2021 Assessment & Plan (11/26/2021 1:25 PM BATCH AND FURNACE MANAGER): Reportedly on long-acting insulin and glimepride 2mg [...] mg. Assessment & Plan (11/27/2021 12:42 PM BATCH AND FURNACE MANAGER): Home meds amlodipine 5, others per HFrEF. - Held all antihypertensives until active bleeding ruled out - Normotensive, holding meds EXCEPT lasix which we will restart today at a low dose. SKYE (acute kidney injury) 11/24/2021 Assessment & Plan (11/27/2021 3:22 PM BATCH AND FURNACE MANAGER): OSH Cr 1.99 from reported b/l 1.5. Unclear if this is SKYE, or SKYE on CKD. - Unknown baseline Creat -Records from Securities Counselor do not have baseline creat but do have dx of Stage 3 CKD - Cr 1.6 here -> then downtrended to 1.4 after gentle IVF on 11/25 - Leg swelling, restart lasix at low dose of 20 mg daily - CTM, avoid nephrotoxins Acute blood loss anemia 11/24/2021 Assessment & Plan (11/29/2021 10:49 AM BATCH AND FURNACE MANAGER): B/l Hgb reportedly ~11, at OSH was [...] PCP. 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 Brian Carson ([facility]) to find out the indication for AC- he says he last saw her 1.5 yr ago, indication is 'PE', but Xarelto was started a few months ago at an ER visit or by PCP. - PCP confirmed history of PE in September of 2019 Vascular calcification 03/13/2016 Carotid bruit 03/13/2016 Chronic coronary artery disease 03/13/2016 Assessment & Plan (11/24/2021 11:10 PM BATCH AND FURNACE MANAGER): S/p DICK 2013. On atorva 80, per patient has been off ASA. - Continue atorva 80 Ischemic cardiomyopathy 03/13/2016 Chronic systolic heart failure 03/13/2016 Resolved Problems Problem Noted Date Diagnosed Date Resolved Date Hyperkalemia 11/24/2021 11/26/2021 Assessment & Plan (11/27/2021 12:43 PM BATCH AND FURNACE MANAGER): Reportedly 5.8 at OSH, s/p temporization. - K has not been elevated here. K is 4.3 today. Surgical History Surgery Date Site/Laterality Comments CHOLECYSTECTOMY 09/30/1971 - 09/29/1972 APPENDECTOMY HYSTERECTOMY CATARACT EXTRACTION, BILATERAL CARDIAC CATHETERIZATION 2013, 04/18/2023, 1 stent COLONOSCOPY HM MAMMOGRAPHY HM DEXA SCAN Medical History Medical History Date Comments CAD (coronary artery disease) HFrEF (heart failure with re duced ejection fraction) (HCC) Type 2 diabetes mellitus (HCC) Hypertension History of pulmonary embolus (PE) 11/24/2021 right side if lung CHF (congestive heart failure) ([facility]) History of [place] (myocardial infarction) 2013 History of bronchitis History [...] often do you attend chur ch or taoist services? Never 05/02/2023 Do you belong to any clubs o r organizations such as holiness groups, unions, fraternal or athletic groups, or [...] on file Legal Sex Female 8:29 AM BATCH AND FURNACE MANAGER Gender Identity Not on file Sexual Orientation [...] season) 2024 09/21/2021, 01/20/2021, 12/23/2020 Influenza Vaccine (Season Ended) 2025 06/12/2021, 07/17/2019, 07/17/2017, Additional history exists Colon Cancer Screening-CT Colonography Discontinued 10/25/2016 Colon Cancer Screening-Colonoscopy Discontinued 10/25/2016 Colon Cancer Screening-DNA Stool Discontinued 10/25/19 17 Colon Cancer Screening-FIT Discontinued 10/25/2016 Colon Cancer Screening-FOBT Discontinued 10/25/2016 Colon Cancer Screening-Sigmoidoscopy Discontinued 10/25/2016 Colorectal Cancer Screening Discontinued Pneumococcal vaccine 65+ Completed 017, 07/13/2017, 06/24/2014, Additional history exists Medical Devices Implanted Type Area Patient Ombudsperson Device Identifier Shelf Expiration Date Model / Serial / Lot Stent Heart Lighter Capital Patch Vascuguard 0.88cm [id number] - [id number] Implanted:Qty: 1 on 04/30/2023 by Ebenezer Pop MD at [facility] Left: Neck Lighter Capital [id number] 12/05/2023 [id number] / / [id number] Procedures Procedure Name Priority Date/Time Associated Diagnosis Comments EGFR Routine 05/02/2023 7:06 AM CDT HEMOGLOBIN A1C Routine 04/25/2023 11:47 AM CDT Type 2 diabetes mellitus without complication, with long-term current use of insulin (HCC) LIPID PANEL Routine 11/24/2021 9:43 PM BATCH AND FURNACE MANAGER COLONOSCOPY REPORT 10/25/2016 from Last 3 Months or Most Recently Relevant to Health Maintenance Results * eGFR (05/02/2023 7:06 AM CDT) eGFR 47 mL/min/1. 73 m2 [facility] Comment: Interpretive Data Reference Interval Normal >/= [...] ORDERABLES Final Re sult Performing Organization Address [facility] de Phone Number [address] [address] * (ABNORMAL) Hemoglobin A1c (04/25/2023 11:47 AM CDT) Hgb A1C 7.5(H) 4.0 - 5.6 % [facility] Estimated Average Glucose 169 mg/dL [facility] Comment: The ADA recommends reporting an estimated Average Glucose (eAG) with all Hemoglobin A1c results using the equation derived from a study of 507 normal and diabetic adults. Minority populations were underrepresented and children were not included. (Diabetes Care 31:5044-6242, 2008). The eAG is not equivalent to a fasting glucose. Blood 04/25/2023 11:4 7 AM CDT 04/25/2023 12:48 PM CDT Ebenezer Pop MD LAB BLOOD ORDERABLES Final Resul t Performing Organization Address [facility] de Phone Number [address] [place] [address] * (ABNORMAL) Lipid panel (11/24/2021 9:43 PM BATCH AND FURNACE MANAGER) Pathologist [facility] Cholesterol 126 30 - 199 mg/dL [facility] [...] on 2018. HDL 26(L) >=40 mg/dL [facility] Comment: Interpretive Data Ages < [...] 2018. LDL, calculated 51 <=129 mg/dL [facility] Comment: Interpretive Data Ages < [...] revised on 2018. Non-HDL Cholesterol 100 mg/dL [facility] Comment: Interpretive Data Ages < or = [...] last revised on 2018. Chol/HDL ratio 5 [facility] GUAJARDO Blood 11/24/2021 9:43 PM BATCH AND FURNACE MANAGER 11/24/2021 10:53 PM BATCH AND FURNACE MANAGER Dahlia Moseley MD LAB BLOOD ORDERABLES Final Result [facility] Department [place] [address] * COLONOSCOPY REPORT (10/25/2016) Anatomical Region Laterality Modality Other Narrative 10/25/2016 Ordered by an unspecified provider. us Historical Provider GI PROCEDURE ORDERABLES F inal Result from Last 3 Months or Most Recently Relevant to Health Maintenance Insurance [employer] MEDICARE ADVANTAGE Advance Directives For more information, please contact: [phone] Documents on File Type Date Recorded Patient Telephone Collector Expl anation Power of Professor Of Special Education 04/30/2023 7:55 AM * Full Code (Latest Code Status on File) Date Activated Date Inactivated Comments 04/30/2023 5:05 PM 05/02/2023 8:36 PM * Full Code Date Activated Date Inactivated Comments 11/24/2021 9:19 PM 11/29/2021 8:19 PM Care Teams Spray Painter Helper Relationship Specialty Start Date End Date Neftali Torres MD PCP - General 01/18/17 Brian Carson DO [address] [facility] [address] [place] [address] Referring Physician Cardiology 04/25/23
--- OUTSIDE RECORDS SUMMARY | 2025-03-29 12:02 | XMS_ITS | Clinical Summary ---
Author Organization [facility] Jimena lucio [facility] Address [address] [facility] [place] [address] Care Team Providers Care Superintendent Factory Name Role Phone Neftali Torres MD Primary Care Provider [phone] Allergies Active Allergy Reactions Criticality Noted Date [...] Encounters Date Type Department Care Team Description 03/17/2025 External Device Data ST[facility] ABSTRACTION Provider, Abstract 03/16/2025 External Device Data ST[facility] ABSTRACTION Provider, Abstract 02/18/2025 External Device Data ST[facility] ABSTRACTION Provider, Abstract 02/17/2025 External Device Data STL ABSTRACTION Provider, Abstract 02/16/2025 External Device Data ST[facility] ABSTRACTION Provider, Abstract 02/02/2025 External Device Data STL ABSTRACTION Provider, Abstract [...] 11:44 AM CDT Height 149.9 cm (4' 11) 04/13/2022 10:57 AM CDT Body Mass Index [...] INFLUENZA VACCINE (#1) 2024 Insurance Care Teams Superintendent Factory Relationship Specialty Start Date End Date Neftali Torres MD [address] [place] [id number] PCP - General Internal Medicine 02/23/22
--- OUTSIDE RECORDS SUMMARY | 2025-03-29 12:02 | XMS_ITS | Clinical Summary ---
Author Organization [facility] Address [address] [place] [address] Phone Care Team Providers Care Driver Messenger Name Role Phone Neftali Torres MD Primary Care Provider [phone] Allergies Active Allergy Reactions Criticality Noted Date [...] Take 1 tablet by mouth every morning Active DULoxetine (CYMBALTA) [address] Particles Take 30 mg by mouth daily. Take 1 capsule by mouth once daily Active furosemide (LASIX) 40 MG Tablet Take 40 mg by mouth daily. take 1 tablet by mouth every morning Active Social History Tobacco Use Types Packs/Day Years Used Date Smoking Tobacco: Never Assessed Comments Unknown Sex and Gender Information Value Date Recorded Sex Assigned at Not on file Legal Sex Female 10:30 AM SWITCH OPERATORS SUPERVISOR Gender Identity Not on file Sexual Orientation Not on file Last Filed Vital Signs Vital Sign Reading Time Taken Comments Blood Pressure 128/80 10/19/2024 12:37 PM SWITCH OPERATORS SUPERVISOR Pulse 86 10/19/2024 12:37 PM SWITCH OPERATORS SUPERVISOR Temperature 36.2 C (97.2 F) 10/19/2024 12:37 PM SWITCH OPERATORS SUPERVISOR Respiratory Rate 18 10/19/2024 12:37 PM SWITCH OPERATORS SUPERVISOR Oxygen Saturation 96% 10/19/2024 12:37 PM SWITCH OPERATORS SUPERVISOR Inhaled Oxygen Concentration - - Weight 57.6 kg (127 lb) 10/19/2024 12:37 PM SWITCH OPERATORS SUPERVISOR Height 149.9 cm (4' 11) 09/25/2024 10:45 AM SWITCH OPERATORS SUPERVISOR Body Mass Index 25.65 09/25/2024 10:45 AM SWITCH OPERATORS SUPERVISOR Plan of Treatment Health Maintenance Due Date [...] on patient's age to complete this topic Human Papillomavirus (HPV) Immunization Aged Out No longer eligible based on patient's age to complete this topic Meningococcal Immunization (ACWY) Aged Out No longer eligible based on patient's age to complete this topic Rotavirus Immunization Aged Out No lo nger eligible based on patient's age to complete this topic Insurance MEDICARE C [facility] Advance Directives Documents on File Type Date Recorded Patient Countersinker Expl anation Power of Beam Builder for Health Care 09/28/2024 11:33 AM POA 03/24/21 Power of Beam Builder for Health Care 09/28/2024 10:29 AM * Full Code (Latest Code Status on File) Date Activated Date Inactivated Comments 09/25/2024 7:25 PM Care Teams Driver Messenger Relationship Specialty Start Date End Date Neftali Torres MD [address] [place] [address] PCP - General Internal Medicine 11/29/21
[2025-03-29 12:28] LABS: MALB Creatinine Ratio 24.7 mg/g (0-30); Microalbumin Urine Random 21.7 mg/L (0-16.7)
[2025-03-29 12:41] LABS: Alanine Aminotransferase 22 U/L (6-35); Albumin Level 3.9 g/dL (3.5-5.1); Alkaline Phosphatase 47 U/L (38-126); Anion Gap 5 mmol/L (4-12); Aspartate Amino Transferase 26 U/L (14-36); Bilirubin,Total 0.5 mg/dL (0.2-1.3); Blood Urea Nitrogen 44 mg/dL (7-17); Calcium 8.9 mg/dL (8.4-10.2); Carbon Dioxide 28 mmol/L (22-30); Chloride 106 mmol/L (98-107); Cholesterol 141 mg/dL (0-200); Estimated Glomerular Filt Rate 42; Glucose 114 mg/dL (65-110); HDL Direct 38 mg/dL; LDL Cholesterol Calculated 80 mg/dL (<130); Osmolality Calculated 300 mOsm/kg (285-295); Potassium 4.4 mmol/L (3.4-5.0); Sodium 139 mmol/L (137-145); Total Protein 6.1 g/dL (6.3-8.2); Triglycerides 115 mg/dL (<150)
[2025-03-29 12:58] LABS: Free T4 Free Thyroxine 1.36 ng/dL (0.78-2.19); Vitamin D 25 Hydroxy 74.9 ng/mL
[2025-03-29 14:51] LABS: Vitamin B12 > 1000.0 pg/mL (239-931)
== END 2025-03-29 11:52 | disposition home or self-care (01) ==
LOC: CHSLAB 11:53
PROVIDERS: PCP Internal Medicine; Visit Provider Nurse Practitioner Family
DX: E11.65 Type 2 diabetes mellitus with hyperglycemia (principal); I12.9 Hypertensive chronic kidney disease with stage 1 through stage 4 chronic kidney disease, or unspecified chronic kidney disease; E78.5 Hyperlipidemia, unspecified; N18.30 Chronic kidney disease, stage 3 unspecified
CPT/HCPCS: 36415; 80053; 80061; 82043; 82306; 82607; 84439; 84443

== ENCOUNTER 2025-06-23 11:58 | Outpatient (CLI) | payer MEDICARE, SELFPAY ==
--- OUTSIDE RECORDS SUMMARY | 2025-06-23 09:45 | XMS_ITS | Encounter Summary ---
Author Organization [facility] Address [address] [place] [address] Care Team Providers Care Fraud Manager Name Role Phone Neftali Torres MD Primary Care Provider [phone] Brian Carson Nae DO Unavailable [phone] Anna Maldonado Unavailable Unavailable Reason for Visit * Reason Comments Follow-up 6 mo f/u - B/L Carot id stenosisHx: 04/30/23 Lt CEA Encounter Details Date Type Department Care Team (Late st Contact Info) Description 06/23/2025 9:45 AM CDT Office Visit [facility] at [address] [place] [address] Sangita Rivera, REED WORKER [address] [facility] [address] [address] Social History Tobacco Use Types Packs/Day Years Used Date Smoking Tobacco: Never Smokeless Tobacco: Never Social Connection and Isolation Panel Answer Date Recorded In a typical week, how many times do you talk on the phone with family, friends, or neighbors? Three times a week 05/02/2023 How often do you get togethe r with friends or relatives? Three times a week 05/02/2023 How often do you attend chur ch or jainism services? Never 05/02/2023 Do you belong to any clubs o r organizations such as mosque groups, unions, fraternal or athletic groups, or [...] [place] [facility] ([facility])? No 05/02/2023 Housing Stability Vital [...] on file Legal Sex Female 8:29 AM HAND INSERTER OPERATOR Gender Identity Not on file Sexual Orientation Not on file documented as of this encounter Last Filed Vital Signs Vital Sign Reading Time Taken Comments Blood Pressure 147/79 06/23/2025 9:57 AM CDT Pulse 68 06/23/2025 9:57 AM CDT Temperature - - Respiratory Rate - - Oxygen Saturation 99% 06/23/2025 9:57 AM CDT Inhaled Oxygen Concentration - - Weight 52.3 kg (115 lb 4.8 oz) 06/23/2025 9:57 A M CDT Height 152.4 cm (5') 06/23/2025 9:57 AM CDT Body Mass Index 22.52 06/23/2025 9:57 AM CDT documented in this encounter Plan of Treatment Not on file documented as of this encounter Visit Diagnoses Not on filedocumented in this encounter Care Teams Fraud Manager Relationship Specialty Start Date End Date Neftali Torres MD PCP - General 01/18/17 Brian Carson DO [address] [facility] [address] [place] [address] Referring Physician Cardiology 04/25/23 Anna Maldonado Primary Prop Drawer 06/17/25 documented as of this encounter
--- OUTSIDE RECORDS SUMMARY | 2025-06-23 12:30 | XMS_ITS | Clinical Summary ---
Author Organization [facility] Address [address] [place] [address] Phone Care Team Providers Care Cell Feed Department Supervisor Name Role Phone Neftali Torres MD Primary Care Provider [phone] Allergies Active Allergy Reactions Criticality Noted Date [...] tablet by mouth every morning 4 Active Social History Tobacco Use Types Packs/Day Years Used Date Smoking Tobacco: Never Assessed Comments Unknown Sex and Gender Information Value Date Recorded Sex Assigned at Not on file Legal Sex Female 10:30 AM CONTRACT LEAD Gender Identity Not on file Sexual Orientation Not on file Last Filed Vital Signs Vital Sign Reading Time Taken Comments Blood Pressure 128/80 10/19/2024 12:37 PM CONTRACT LEAD Pulse 86 10/19/2024 12:37 PM CONTRACT LEAD Temperature 36.2 C (97.2 F) 10/19/2024 12:37 PM CONTRACT LEAD Respiratory Rate 18 10/19/2024 12:37 PM CONTRACT LEAD Oxygen Saturation 96% 10/19/2024 12:37 PM CONTRACT LEAD Inhaled Oxygen Concentration - - Weight 57.6 kg (127 lb) 10/19/2024 12:37 PM CONTRACT LEAD Height 149.9 cm (4' 11) 09/25/2024 10:45 AM CONTRACT LEAD Body Mass Index 25.65 09/25/2024 10:45 AM CONTRACT LEAD Plan of Treatment Health Maintenance Due Date Last Done Comments DEXA Bone Density 1945 Hepatitis C Virus (HCV) Screening 1945 TdaP Immunization 1945 Respiratory Syncytial Virus (RSV) Immunization (Adult) (1 - 1-dose 75+ series) 12/18/2022 Influenza Immunization (#1) 05/31/202507/31, 08/13/2023, 08/30/2022, Additional history exists SARS-COV-2 Immunization ( season) 2025 09/21/2021, 01/20/2021, 12/23/2020 Pneumococcal Immunization (50+ years) Completed 07/17/2017, 07/13/2017, 06/24/2014, Additional history exists Zoster Immunization Completed 03/14/2023, Hepatitis B Immunization Aged Out No longer [...] to complete this topic Insurance [facility] Advance Directives Documents on File Type Date Recorded Patient Manager Appointment Expl anation Power of Heel Emery Buffer for Health Care 09/28/2024 11:33 AM POA 03/24/21 Power of Heel Emery Buffer for Health Care 09/28/2024 10:29 AM * Full Code (Latest Code Status on File) Date Activated Date Inactivated Comments 09/25/2024 7:25 PM Care Teams Cell Feed Department Supervisor Relationship Specialty Start Date End Date Neftali Torres MD [address] [place] [address] PCP - General Internal Medicine 11/29/21
--- OUTSIDE RECORDS SUMMARY | 2025-06-23 12:30 | XMS_ITS | Clinical Summary ---
Author Organization [facility] Jimena lucio [facility] Address [address] [facility] [place] [address] Care Team Providers Care Operations Chief Name Role Phone Neftali Torres MD Primary Care Provider [phone] Allergies Active Allergy Reactions Criticality Noted Date [...] Encounters Date Type Department Care Team Description 06/01/2025 External Device Data STL ABSTRACTION Provider, Abstract 05/18/2025 External Device Data STL ABSTRACTION Provider, Abstract 04/14/2025 External Device Data STL ABSTRACTION Provider, Abstract 04/14/2025 External Device Data STL ABSTRACTION Provider, Abstract 04/14/2025 External Device Data STL ABSTRACTION Provider, Abstract 04/13/2025 External Device Data STL ABSTRACTION Provider, Abstract [...] MONTHS 11/04/20232022, 04/25/2023, 11/25/2021 INFLUENZA VACCINE (#1) 2025 Insurance Care Teams Operations Chief Relationship Specialty Start Date End Date Neftali Torres MD [address] [place] [id number] PCP - General Internal Medicine 02/23/22
--- OUTSIDE RECORDS SUMMARY | 2025-06-23 12:30 | XMS_ITS | Clinical Summary ---
Author Organization [facility] Address [address] [place] [address] Care Team Providers Care Histology Teacher Name Role Phone Unavailable Primary Care Provider [...] Td Vaccines ( 1 - Tdap) 12/18/1966 Pneumococcal Vaccine: 50+ Ye ars (1 of 1 - PCV) 12/18/1997 Zoster Vaccines (1 of 2) 12/18/1997 Dexa Scan (General) 12/18/2012 RSV Immunization or 60+ Years (1 - 1-dose 75+ series) 12/18/2022 COVID-19 Vaccine ( - 2023-2 5 season) 2025 Meningococcal B Vaccine Aged Out No l onger eligible based on patient's age to complete this topic Meningococcal Vaccine Aged Out No tom gustabo eligible based on patient's age to complete this topic RSV Immunizations Under 20 Months Aged Out No longer eligible based on patient's age to complete this topic
--- OUTSIDE RECORDS SUMMARY | 2025-06-23 12:30 | XMS_ITS | Clinical Summary ---
Author Organization [facility] Address [address] [place] [address] Care Team Providers Care Rn Admission Name Role Phone Neftali Torres MD Primary Care Provider [phone] Source Comments [facility],non-owned Affiliates and Associated Physician Practices is amultiple site organization consisting of ambulatory clinics and hospital sitesin [place], [place] and [place]. This disclosure is being madepursuant to the Care Everywhere program and may not contain all information available regarding this patient. Last updated 18.[facility] Allergies Active Allergy Reactions Criticality Noted Date [...] the tongue 15 tablet 09/19/2024 10:02 AM DIRECT MARKETING COORDINATOR 4 Active metoprolol succinate XL 24hr (Toprol [...] Muscle Spasms 15 tablet 09/19/2024 10:02 AM DIRECT MARKETING COORDINATOR 4 Active Active Problems Problem Noted Date [...] and heating? Not hard at all 09/15/2024 [facility] - Occupational Stress [...] place to sleep or slept in a [facility] (including now)? No 05/03/2023 Housing Stability Vital Sign Answer Sawyer e Recorded In the last 12 months, was t here a time when you were not able to pay the mortgage or rent on time? No 09/15/2024 In the past 12 months, how m any times have you moved where you were living? 0 09/15/2024 At any time in the past 12 m [facility], were you homeless or living in a m[facility]p (including now)? No 09/15/2024 Comments Unknown Sex and Gender Information Value Date Recorded Sex Assigned at Not on file Legal Sex Female 5:52 PM DIRECT MARKETING COORDINATOR Gender Identity Not on file Sexual Orientation Not on file Last Filed Vital Signs Vital Sign Reading Time Taken Comments Blood Pressure 154/83 09/19/2024 12:11 PM DIRECT MARKETING COORDINATOR Pulse 86 09/19/2024 12:11 PM DIRECT MARKETING COORDINATOR Temperature 37 C (98.6 F) 09/19/2024 12:11 PM DIRECT MARKETING COORDINATOR Respiratory Rate 14 09/19/2024 8:30 AM DIRECT MARKETING COORDINATOR Oxygen Saturation 94% 09/19/2024 12:11 PM DIRECT MARKETING COORDINATOR Inhaled Oxygen Concentration - - Weight 61.7 kg (136 lb) 09/19/2024 4:00 AM DIRECT MARKETING COORDINATOR Height 152.4 cm (5') 09/15/2024 1:00 AM DIRECT MARKETING COORDINATOR Body Mass Index 26.56 09/15/2024 1:00 AM DIRECT MARKETING COORDINATOR Plan of Treatment Health Maintenance Due Date Last Done Comments BONE DENSITY TESTING 1945 HEPATITIS C SCREENING 12/14/1965 DTAP/TDAP/TD VACCINES (1 - Tdap) 12/18/1966 PNEUMOCOCCAL VACCINE 50+ (1 of 2 - PCV) 12/18/1966 DIABETES-STATIN 1987 ZOSTER VACCINE (1 of 2) 12/18/1997 Respiratory Syncytial Virus (RSV) Vaccine Pt: or over 60 yrs (1 - 1-dose 75+ series) 12/18/2022 DIABETES RETINOPATHY SCREENING 09/19/2024 DIABETES-FOOT EXAM WITH MONOFILAMENT 09/19/2024 DIABETES-HGB A1C 09/19/2024 05/04/2023, , 11/25/2021 DEPRESSION SCREENING 09/30/2024 DIABETES - URINE PROTEIN SCREENING 09/30/2024 MEDICARE AWV CALENDAR YEAR 2024 COVID-19 VACCINE ( season) 2025 09/21/2021, 01/20/2021, 12/23/2020 INFLUENZA VACCINE (#1) 2025 2, 06/12/2021, 07/17/2019, Additional history exists DIABETES-SERUM CREATININE [...] (CALCIUM TOTAL) AM Draw 09/19/2024 12:36 AM DIRECT MARKETING COORDINATOR HEMOGLOBIN A1C Routine 05/04/2023 4:06 AM CDT from Last 3 Months or Most Recently Relevant to Health Maintenance Results * (ABNORMAL) BASIC METABOLIC PANEL (CALCIUM TOTAL) (09/19/2024 12:36 AM DIRECT MARKETING COORDINATOR) BUN 61(H) 7 - 26 mg/dL 09/19/2024 1:18 AM [facility] Creatinine 1.31(H) 0.56 - 0.96 mg/dL 09/19/2024 1:18 AM [facility] Sodium 136 136 - 145 mmol/L 09/19/2024 1:18 AM [facility] Potassium 5.0(H) 3.5 - 4.5 mmol/L 09/19/2024 1:18 AM [facility] Chloride 100 98 - 107 mmol/L 09/19/2024 1:18 AM [facility] CO2 30(H) 22 - 29 mmol/L 09/19/2024 1:18 AM [facility] Glucose 268(H) 70 - 99 mg/dL 09/19/2024 1:18 AM [facility] Calcium 9.2 8.4 - 10.2 mg/dL 09/19/2024 1:18 AM [facility] Anion Gap 6 6 - 16 09/19/2024 1:18 AM [facility] BUN/Creatinine Ratio 47(H) 7 - 23 09/19/2024 1:18 AM [facility] Osmolality Calculated 309(H) 275 - 295 mOsm/kg 09/19/2024 1:18 AM [facility] eGFR by CKD-EPI 42(L) >=90 mL/min/1.7 3 m2 09/19/2024 1:18 AM [facility] Blood BLOOD SPECIMEN / Unknown Lab Venipuncture / Unknown 09/19/2024 12:36 AM DIRECT MARKETING COORDINATOR 09/19/2024 12:53 AM [facility] us Any Mccoy PA-C LAB - CHEMISTRY ORDERAB LES Final Result [facility] [address] [place] [address], [facility] [phone] * (ABNORMAL) HEMOGLOBIN A1C (05/04/2023 4:06 AM CDT) Hemoglobin A1c 7.8(H) <=5.6 % 05/04/2023 2:37 PM CDT [facility] Estimated Average Glucose 177 mg/dL 05/04/2023 2:37 PM T [facility] Comment: HbA1c Interpretation: Normal : < 5.7% Pre-diabetes: 5.7-6.4% Diabetes: Equal to or greater than 6.5% Test results diagnostic of diabetes should be repeated for confirmation. Treatment target values recommended by ADA and other clinical organizations should be used to evaluate metabolic control in patients. Reference: [place] [employer], Standards of Care in Diabetes [...] MD LAB - CHEMISTRY ORDERABLES Final Result [facility] [address] [place] [address], [place] [phone] from Last 3 Months or Most Recently Relevant to Health Maintenance Insurance [facility] MANAGED MEDICARE [facility] MEDICARE [facility] MANAGED MEDICARE ADV Advance Directives * Full Code (Latest Code Status on File) Date Activated Date Inactivated Comments 09/14/2024 3:25 AM 09/19/2024 2:53 PM * Full Code Date Activated Date Inactivated Comments 05/03/2023 5:30 AM 05/05/2023 3:48 PM Care Teams Rn Admission Relationship Specialty Start Date End Date Neftali Torres MD [address] [place] [address] PCP - General 06/05/16
--- OUTSIDE RECORDS SUMMARY | 2025-06-23 12:30 | XMS_ITS | Encounter Summary ---
Author Organization [facility] Address [address] [place] [id number] Care Team Providers Care Field Worker Name Role Phone Neftali Torres MD Primary Care Provider [phone] Brian Carson Nae DO Unavailable [phone] Anna Maldonado Unavailable Unavailable Reason for Referral * Diagnostic Imaging (Routine) - Authorized Specialty Diagnoses / Procedures Referred By Contac t Referred To Contact Diagnoses Bilateral carotid artery stenosis Aftercare following surgery of the circulatory system Procedures US Carotids Duplex Bilateral Ebenezer Pop MD [address] [place] [address] Phone: tel: fax: [facility] at [address] [address] Phone: tel: fax: Referral ID Status Reason Start Date Expiration Date V isits Requested Visits Authorized [id number] Authorized 06/23/2025 07/23/2026 1 1 Encounter Details Date Type Department Care Team (Late st Contact Info) Description 06/23/2025 Orders Only [facility] Vascular at [address] [address] Ebenezer Pop MD [address] [place] [address] Bilateral carotid artery stenosis (Primary Dx); Aftercare following surgery of the circulatory system Social History Tobacco Use Types Packs/Day Years [...] often do you attend chur ch or buddhist services? Never 05/02/2023 Do you belong to any clubs o r organizations such as religious groups, unions, fraternal or athletic groups, or [...] place to sleep or slept in a correction (including now)? No 05/02/2023 Housing Stability Vital [...] on file Legal Sex Female 8:29 AM ENFORCEMENT MANAGER Gender Identity Not on file Sexual Orientation Not on file documented as of this encounter Plan of Treatment Scheduled Orders Name Type Priority Associated Diagnoses Orde r Schedule US Carotids Duplex Bilateral Imaging Schedule Routine, Read Routine (OP Routine) Bilateral carotid artery stenosis Aftercare following surgery of the circulatory system Expected: 12/21/2025, Expires: 12/21/2026 documented as of this encounter Visit Diagnoses Diagnosis Bilateral carotid artery stenosis- Primary Occlusion and stenosis of carotid artery without mention of cerebral infarction Aftercare following surgery of the circulatory system Aftercare following surgery of the circulatory system, NEC documented in this encounter Care Teams Field Worker Relationship Specialty Start Date End Date Neftali Torres MD PCP - General 01/18/17 Brian Carson DO [address] [facility] [address] [place] [address] Referring Physician Cardiology 04/25/23 Anna Maldonado Primary Tactical Air Control Party 06/17/25 documented as of this encounter
--- OUTSIDE RECORDS SUMMARY | 2025-06-23 12:31 | XMS_ITS | Clinical Summary ---
Author Organization [facility] s Address [address] [place] [address] Care Team Providers Care Touch Up Painter Hand Name Role Phone Neftali Torres MD Primary Care Provider [phone] Brian Carson Nae DO Unavailable [phone] Anna Maldonado Unavailable Unavailable Allergies Active Allergy Reactions Criticality Noted Date Comments Codeine Hallucinations Medium Tramadol Hives,Itching Medium Medications aspirin 325 mg tablet Take 81 mg by mouth daily Active metoprolol XL (TOPROL-XL) 50 mg 24 hr tablet TAKE ONE TABLET BY MOUTH ONCE DAILY 90 tablet 3 8 Active Additional Information Patient taking differently: 50 mg oral Daily, Informant: Self, Reported on 06/23/2025 furosemide (LASIX) 40 mg tablet TAKE ONE TABLET BY MOUTH ONCE DAILY 90 tablet 3 8 Active Additional Information Patient taking differently: 40 mg oral Daily, Informant: Self, Reported on 06/23/2025 lisinopriL (PRINIVIL,ZEST RIL) 10 mg tablet Take [...] 600 mg by mouth daily Active omega 2-jom-smj-fish oil 1,200 (144-216) mg capsule Take 1 [...] Active Additional Information Patient not taking.Reported on 06/23/2025 atorvastatin (LIPITOR) 80 mg tablet Take 1 [...] duplex. Assessment & Plan (11/27/2023 9:44 AM BUILDING CONSTRUCTION FOREMAN): Left carotid continues to be patent with [...] effects. Assessment & Plan (11/29/2021 10:53 AM BUILDING CONSTRUCTION FOREMAN): - Bupriopion daily - Plan to titrate with PCP Hematoma 11/26/2021 Assessment & Plan (11/27/2021 12:46 PM BUILDING CONSTRUCTION FOREMAN): Hematoma of R buttock extending into inner [...] 11/25/2021 Assessment & Plan (11/28/2021 11:24 AM BUILDING CONSTRUCTION FOREMAN): At OSH INR was 24.1 on 11/24/21 [...] mg. Assessment & Plan (11/27/2021 3:22 PM BUILDING CONSTRUCTION FOREMAN): Reportedly LVEF 40% (last echo on file is in 2015). On home metop 50 daily, spironolactone 12.5 (?) daily, furosemide 40mg daily. -Received records from her heart specialist: Last echo Sep- EF 55-60%, mild LVH, [...] list of meds- she last saw her heart specialist 1.5 yrs ago and she has ED visits since then; might need to get records from PCP - BMP daily T2DM (type 2 diabetes mellitus) 11/24/2021 Assessment & Plan (11/26/2021 1:25 PM BUILDING CONSTRUCTION FOREMAN): Reportedly on long-acting insulin and glimepride 2mg [...] mg. Assessment & Plan (11/27/2021 12:42 PM BUILDING CONSTRUCTION FOREMAN): Home meds amlodipine 5, others per HFrEF. - Held all antihypertensives until active bleeding ruled out - Normotensive, holding meds EXCEPT lasix which we will restart today at a low dose. SKYE (acute kidney injury) 11/24/2021 Assessment & Plan (11/27/2021 3:22 PM BUILDING CONSTRUCTION FOREMAN): OSH Cr 1.99 from reported b/l 1.5. Unclear if this is SKYE, or SKYE on CKD. - Unknown baseline Creat -Records from [facility] do not have baseline creat but do have dx of Stage 3 CKD - Cr 1.6 here -> then downtrended to 1.4 after gentle IVF on 11/25 - Leg swelling, restart lasix at low dose of 20 mg daily - CTM, avoid nephrotoxins Acute blood loss anemia 11/24/2021 Assessment & Plan (11/29/2021 10:49 AM BUILDING CONSTRUCTION FOREMAN): B/l Hgb reportedly ~11, at OSH was [...] PCP. 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 Brian Carson ([facility]) to find out the indication for AC- he says he last saw her 1.5 yr ago, indication is 'PE', but Xarelto was started a few months ago at an ER visit or by PCP. - PCP confirmed history of PE in September of 2019 Vascular calcification 03/13/2016 Carotid bruit 03/13/2016 Chronic coronary artery disease 03/13/2016 Assessment & Plan (11/24/2021 11:10 PM BUILDING CONSTRUCTION FOREMAN): S/p DICK 2013. On atorva 80, per patient has been off ASA. - Continue atorva 80 Ischemic cardiomyopathy 03/13/2016 Chronic systolic heart failure 03/13/2016 Resolved Problems Problem Noted Date Diagnosed Date Resolved Date Hyperkalemia 11/24/2021 11/26/2021 Assessment & Plan (11/27/2021 12:43 PM BUILDING CONSTRUCTION FOREMAN): Reportedly 5.8 at OSH, s/p temporization. - K has not been elevated here. K is 4.3 today. Encounters Date Type Department Care Team Description 06/23/2025 9:45 AM CDT Office Visit [facility] Vascular at [address] [address] Sangita Rivera NP 06/23/2025 Orders Only [facility] Vascular at [address] [address] Julio Pop MD Bilateral carotid artery stenosis (Primary Dx); Aftercare following surgery of the circulatory system 06/15/2025 1:00 PM CDT Ancillary Procedure [facility] Vascular and Vein Surgery at [address] [address] Bilateral carotid artery stenosis; Aftercare following surgery of the circulatory system from Last 3 Months Surgical History Surgery Date Site/Laterality Comments CHOLECYSTECTOMY 09/30/1971 - 09/29/1972 APPENDECTOMY HYSTERECTOMY CATARACT EXTRACTION, BILATERAL CARDIAC CATHETERIZATION 2013, 04/18/2023, 1 stent COLONOSCOPY HM MAMMOGRAPHY HM DEXA SCAN Medical History Medical History Date Comments CAD (coronary artery disease) HFrEF (heart failure with reduced ejection fract ion) Type 2 diabetes mellitus Hypertension History of pulmonary embolus (PE) 11/24/2021 right side if lung CHF (congestive heart failure) (HCC) History of RI (myocardial infarction) 2013 History of bronchitis History [...] 05/02/2023 How often do you attend chur [employer] or yarsanism services? Never 05/02/2023 Do you belong to any clubs o r organizations such as scientology groups, unions, fraternal or athletic groups, or [...] in a skilled nursing (including now)? No 05/02/2023 Housing Stability Vital [...] on file Legal Sex Female 8:29 AM BUILDING CONSTRUCTION FOREMAN Gender Identity Not on file Sexual Orientation Not on file Obstetrics History Last Filed Vital Signs Vital Sign Reading Time Taken Comments Blood Pressure 147/79 06/23/2025 9:57 AM CDT Pulse 68 06/23/2025 9:57 AM CDT Temperature 37 C (98.6 F) 05/02/2023 12:19 PM CDT Respiratory Rate 16 05/02/2023 12:19 PM CDT Oxygen Saturation 99% 06/23/2025 9:57 AM CDT Inhaled Oxygen Concentration - - Weight 52.3 kg (115 lb 4.8 oz) 06/23/2025 9:57 A M CDT Height 152.4 cm (5') 06/23/2025 9:57 AM CDT Body Mass Index 22.52 06/23/2025 9:57 AM CDT Plan of Treatment Health Maintenance [...] Panel 11/24/2022 11/24/2021 Hemoglobin A1C 11/04/2023 05/04/2023, 072 03/2023, 11/25/2021 Fall Risk Assessment 05/02/2024 05/02/2023 eGFR 05/02/2024 05/02/2023, 08/0 10/2022, 04/25/2023, Additional history exists Covid-19 Vaccine ( - 2024-2 6 season) 2025 09/21/2021, 01/20/2021, 12/23/2020 Influenza Vaccine (#1) 2025 , 07/17/2019, 07/17/2017, Additional history exists Colon Cancer Screening-CT Colonography Discontinued 10/25/2016 Colon Cancer Screening-Colonoscopy Discontinued 10/25/2016 Colon Cancer Screening-DNA Stool Discontinued 10/25/19 17 Colon Cancer Screening-FIT Discontinued 10/25/2016 Colon Cancer Screening-FOBT Discontinued 10/25/2016 Colon Cancer Screening-Sigmoidoscopy Discontinued 10/25/2016 Colorectal Cancer Screening Discontinued Pneumococcal vaccine 65+ Completed 017, 07/13/2017, 06/24/2014, Additional history exists Medical Devices Implanted Type Area Director Of Procurement Device Identifier Shelf Expiration Date Model / Serial / Lot Stent Heart Modern [employer]ory Patch Vascuguard 0.88cm [id number] - [id number] Implanted:Qty: 1 on 04/30/2023 by Julio Pop MD at [facility] Left: Neck [employer]ory [id number] 12/05/2023 [id number] / / [id number] Procedures Procedure Name Priority Date/Time Associated Diagnosis Comments US CAROTIDS DUPLEX BILATERAL Schedule Routine, Read Routine (OP Routine) 06/15/2025 1:26 PM CDT Bilateral carotid artery stenosis Aftercare following surgery of the circulatory system EGFR Routine 05/02/2023 7:06 AM CDT HEMOGLOBIN A1C Routine 04/25/2023 11:47 AM CDT Type 2 diabetes mellitus without complication, with long-term current use of insulin (HCC) LIPID PANEL Routine 11/24/2021 9:43 PM BUILDING CONSTRUCTION FOREMAN COLONOSCOPY REPORT 10/25/2016 from Last 3 Months or Most Recently Relevant to Health Maintenance Results * US Carotids Duplex Bilateral (06/15/2025 1:26 PM CDT) Anatomical Region Laterality Modality Vascular Bilateral Ultrasound 06/15/2025 12:5 5 PM CDT Narrative 06/16/2025 9:01 AM CDT Vascular & Vein Surgery [address] [facility] [place] [address] Carotid Duplex Ultrasound Report Patient Name: RAFA FOSTER L : 1945 (79y 5m) Study Date: 06/15/2025 12:55:30 PM Sex: F Tool Grinder: VIC Location: [facility] Ref Provider: JULIO POP Quality: Adequate Order Provider: JULIO POP PROCEDURES: Carotid Report: Carotid duplex examination of the extracranial arteries was performed using 2D, color and spectral Doppler. INDICATIONS: S/P Lt CEA 04/30/23. HISTORY: HTN. HLD. DM. CAD-RI. CHF. PE. COMPARISONS: No change compared to prior study. The previous exam was completed on 12/07/24: bilat 50-69. MEASUREMENTS: Right Value Left Value RT Prox CCA PSV 65 cm/sec LT Prox CCA PSV 65 cm/sec RT Prox CCA EDV 14 cm/sec LT Prox CCA EDV 14 cm/sec RT Distal CCA PSV 62 cm/sec LT Distal CCA PSV 60 cm/sec RT Distal CCA EDV 13 cm/sec LT Distal CCA EDV 15 cm/sec RT Prox ICA PSV 124 cm/sec LT Prox ICA PSV 141 cm/sec RT Prox ICA EDV 30 cm/sec LT Prox ICA EDV 34 cm/sec RT Mid ICA PSV 220 cm/sec LT Mid ICA PSV 103 cm/sec RT Mid ICA EDV 45 cm/sec LT Mid ICA EDV 26 cm/sec RT Distal ICA PSV 149 cm/sec LT Distal ICA PSV 104 cm/sec RT Distal ICA EDV 23 cm/sec LT Distal ICA EDV 26 cm/sec RT ECA Prx PSV 89 cm/sec LT ECA Prx PSV 98 cm/sec RT ICA/CCA 3.55 ratio LT ICA/CCA 2.35 ratio Rt Vert Dst PSV 74 cm/sec Lt Vert Dst PSV 35 cm/sec FINDINGS: Rt Common Carotid Artery: Duplex [...] with antegrade flow. Lt Common Carotid Artery: The plaque in the left CCA appears to be heterogeneous. Lt Internal Carotid Artery: The plaque in the left internal carotid artery appears to be heterogeneous and smooth. Significant atherosclerotic changes of the left internal carotid artery with elevated peak systolic velocity and end diastolic velocity, as above. 50-69% stenosis (at distal end of patch). Tortuous mid to distal. Lt External Carotid Artery: Patent left external carotid artery with evidence of atherosclerotic disease present. Lt Vertebral Artery: The left vertebral artery is patent with antegrade flow. Comments: Brachial artery systolic blood pressure is 120 on the right, 120 on the left. CONCLUSIONS: 1. The right internal carotid artery disease is consistent with moderate 50-69% stenosis. 2. The left internal carotid artery disease is consistent with moderate 50-69% stenosis. 3. Normal, antegrade flow is noted in bilateral vertebral arteries. ATTESTATION: I have reviewed and interpreted the pertinent images and measurements of this study. I attest to the conclusions in the final report that is provided above. Electronically Signed By: Julio Pop MD 06/16/2025 8:13:09 AM CDT Procedure Note Julio Pop MD - 06/16/2025 Vascular & Vein Surgery [address] [place] [address]. [place] [address] Carotid Duplex Ultrasound Report Patient Name: RAFA FOSTER L : 1945 (79y 5m) Study Date: 06/15/2025 12:55:30 PM Sex: F Tool Grinder: VIC Location: [facility] Ref Provider: JULIO POP Quality: Adequate Order Provider: JULIO POP PROCEDURES: Carotid Report: Carotid duplex examination of the extracranial arterieswas performed using 2D, color and spectral Doppler. INDICATIONS: S/P Lt CEA 04/30/23. HISTORY: HTN. HLD. DM. CAD-RI. CHF. PE. COMPARISONS: No change compared to prior study. The previous exam was completed on12/07/24: bilat 50-69. MEASUREMENTS: Right Value Left Value RT Prox CCA PSV 65 cm/sec LT Prox CCA PSV 65 cm/sec RT Prox CCA EDV 14 cm/sec LT Prox CCA EDV 14 cm/sec RT Distal CCA PSV 62 cm/sec LT Distal CCA PSV 60 cm/sec RT Distal CCA EDV 13 cm/sec LT Distal CCA EDV 15 cm/sec RT Prox ICA PSV 124 cm/sec LT Prox ICA PSV 141 cm/sec RT Prox ICA EDV 30 cm/sec LT Prox ICA EDV 34 cm/sec RT Mid ICA PSV 220 cm/sec LT Mid ICA PSV 103 cm/sec RT Mid ICA EDV 45 cm/sec LT Mid ICA EDV 26 cm/sec RT Distal ICA PSV 149 cm/sec LT Distal ICA PSV 104 cm/sec RT Distal ICA EDV 23 cm/sec LT Distal ICA EDV 26 cm/sec RT ECA Prx PSV 89 cm/sec LT ECA Prx PSV 98 cm/sec RT ICA/CCA 3.55 ratio LT ICA/CCA 2.35 ratio Rt Vert Dst PSV 74 cm/sec Lt Vert Dst PSV 35 cm/sec FINDINGS: Rt Common Carotid Artery: Duplex [...] patent with antegradeflow. Lt Common Carotid Artery: The plaque in the left CCA appears to beheterogeneous. Lt Internal Carotid Artery: The plaque in the left internal carotid arteryappears to be heterogeneous and smooth. Significant atherosclerotic changes of the leftinternal carotid artery with elevated peak systolic velocity and end diastolicvelocity, as above. 50-69% stenosis (at distal end of patch). Tortuous mid to distal. Lt External Carotid Artery: Patent left external carotid artery withevidence of atherosclerotic disease present. Lt Vertebral Artery: The left vertebral artery is patent with antegradeflow. Comments: Brachial artery systolic blood pressure is 120 on the right, 120on the left. CONCLUSIONS: 1. The right internal carotid artery disease is consistent with zibqneis99-79% stenosis. 2. The left internal carotid artery disease is consistent with uogcyrbe06-13% stenosis. 3. Normal, antegrade flow is noted in bilateral vertebral arteries. ATTESTATION: I have reviewed and interpreted the pertinent images and measurements ofthis study. I attest to the conclusions in the final report that is provided above. Electronically Signed By: Julio Pop MD 06/16/2025 8:13:09 AM CDT us Julio Pop MD IMG US PROCEDURES Final [...] LAB BLOOD ORDERABLES Final Re sult [facility] [address] [facility] Department [place] [address] * (ABNORMAL) Hemoglobin A1c (04/25/2023 [...] and children were not included. (Diabetes Care 31:1044-3297, 2008). The eAG is not equivalent to a fasting glucose. Blood 04/25/2023 11:4 7 AM CDT 04/25/2023 12:48 PM CDT us Julio Pop MD LAB BLOOD ORDERABLES Final Resul t [facility] [address] [facility] Department [place] [address] * (ABNORMAL) Lipid panel (11/24/2021 9:43 PM BUILDING CONSTRUCTION FOREMAN) Cholesterol 126 30 - 199 mg/dL [facility] Comment: Interpretive Data Ages < or [...] on 2018. Triglycerides 243(H) <=149 mg/dL [facility] Comment: Interpretive Data Ages < or [...] on 2018. LDL, calculated 51 <=129 mg/dL [facility] Comment: Interpretive Data Ages [...] revised on 2018. Non-HDL Cholesterol 100 mg/dL [facility] Comment: Interpretive Data Ages [...] last revised on 2018. Chol/HDL ratio 5 [facility] Blood 11/24/2021 9:43 PM BUILDING CONSTRUCTION FOREMAN 11/24/2021 10:53 PM BUILDING CONSTRUCTION FOREMAN us Dahlia Moseley MD LAB BLOOD ORDERABLES Final Result [facility] [address] [facility] Department [place] [address] * COLONOSCOPY REPORT (10/25/2016) Anatomical Region Laterality Modality Other Narrative 10/25/2016 Ordered by an unspecified provider. us Historical Provider MD RUBALCAVA PROCEDURE ORDERABLES F inal Result from Last 3 Months or Most Recently Relevant to Health Maintenance Insurance [facility] Address: [place] [id number] [place] [id number] [facility] Address: [place] [id number] [facility] Address: [address] [address] [place] [address] [facility] MEDICARE ADVANTAGE [facility] Address: [address] [address] [place] [address] Advance Directives For more information, please contact: [phone] Documents on File Type Date Recorded Patient Senior Online Marketing Manager Expl anation Power of Library Circulation Technician 04/30/2023 7:55 AM * Full Code (Latest Code Status on File) Date Activated Date Inactivated Comments 04/30/2023 5:05 PM 05/02/2023 8:36 PM * Full Code Date Activated Date Inactivated Comments 11/24/2021 9:19 PM 11/29/2021 8:19 PM Care Teams Touch Up Painter Hand Relationship Specialty Start Date End Date Neftali Torres MD PCP - General 01/18/17 Brian Carson DO [address] [facility] [address] [place] [address] Referring Physician Cardiology 04/25/23 Anna Maldonado Primary Service Desk Technician 06/17/25
[2025-06-23 13:05] LABS: Alanine Aminotransferase 25 U/L (6-35); Albumin Level 4.5 g/dL (3.5-5.1); Alkaline Phosphatase 47 U/L (38-126); Anion Gap 11 mmol/L (4-12); Aspartate Amino Transferase 33 U/L (14-36); Bilirubin,Total 0.5 mg/dL (0.2-1.3); Blood Urea Nitrogen 55 mg/dL (7-17); Calcium 9.3 mg/dL (8.4-10.2); Carbon Dioxide 30 mmol/L (22-30); Chloride 98 mmol/L (98-107); Cholesterol 162 mg/dL (0-200); Estimated Glomerular Filt Rate 37; Glucose 132 mg/dL (65-110); HDL Direct 39 mg/dL; Potassium 3.9 mmol/L (3.4-5.0); Sodium 139 mmol/L (137-145); Total Protein 7.6 g/dL (6.3-8.2); Triglycerides 169 mg/dL (<150)
[2025-06-23 13:21] LABS: Free T4 Free Thyroxine 1.25 ng/dL (0.78-2.19)
[2025-06-23 13:35] LABS: Thyroid Stimulating Hormone 0.302 uIU/mL (0.465-4.680)
== END 2025-06-23 11:59 | disposition home or self-care (01) ==
PROVIDERS: PCP Internal Medicine; Referring Provider Internal Medicine Cardiovascular Disease; Visit Provider Nurse Practitioner Family
DX: E78.5 Hyperlipidemia, unspecified (principal); E11.9 Type 2 diabetes mellitus without complications; Z79.4 Long term (current) use of insulin
CPT/HCPCS: 36415; 80053; 80061; 84439; 84443

== ENCOUNTER 2025-09-10 13:02 | Outpatient (CLI) | payer MEDICARE, SELFPAY ==
--- NOTE | ~2025-09-10 | US_ITS ---
EXAMINATION: US renal BI DATE: 09/10/2025 13:49 INDICATION: Type 2 diabetes with chronic kidney disease TECHNIQUE: Multiple ultrasound grayscale images of the kidneys were obtained. COMPARISON: None. FINDINGS: The right kidney measures 9.6 x 5.0 x 5.5 cm. The left kidney measures 9.2 x 3.9 x 4.5 cm. The kidneys demonstrate normal echogenicity. There is no hydronephrosis in either kidney. No stones identified. The bladder is normal with bilateral ureteral jets visualized on color Doppler. IMPRESSION: 1. Normal kidneys without hydronephrosis. Reviewed, dictated and finalized at location A. ING COORDINATOR
[2025-09-10 14:39] LABS: Albumin Level 4.4 g/dL (3.5-5.1); Anion Gap 8 mmol/L (4-12); Blood Urea Nitrogen 58 mg/dL (7-17); Calcium 9.6 mg/dL (8.4-10.2); Carbon Dioxide 30 mmol/L (22-30); Chloride 99 mmol/L (98-107); Estimated Glomerular Filt Rate 36; Glucose 161 mg/dL (65-110); Potassium 4.0 mmol/L (3.4-5.0); Sodium 137 mmol/L (137-145)
[2025-09-10 14:49] LABS: Total Protein Urine Random 11 mg/dL; Ur Ttl Prot Creatinine Ratio 0.62 mg/mg (0-0.20)
[2025-09-13 12:08] LABS: ANA by IFA Rfx Titer/Pattern Positive (.)
[2025-09-13 15:09] LABS: Albumin 3.7 g/dL (2.9-4.4); Alpha-1-Globulin 0.2 g/dL (0.0-0.4); Alpha-2-Globulin 0.9 g/dL (0.4-1.0); Gamma Globulin 0.9 g/dL (0.4-1.8); Immunoglobulin A, Qn 219 mg/dL (64-422); Immunoglobulin G, Qn 917 mg/dL (586-1602); Immunoglobulin M, Qn 89 mg/dL (26-217)
[2025-09-13 19:08] LABS: Anti-GBM Antibodies <0.2 units (0.0-0.9)
[2025-09-14 07:09] LABS: Albumin, U 28.6 % (.); Alpha-1-Globulin, U 6.1 % (.); Alpha-2-Globulin, U 14.9 % (.); Beta Globulin, U 21.7 % (.); Gamma Globulin, U 28.7 % (.)
== END 2025-09-10 13:03 | disposition home or self-care (01) ==
PROVIDERS: PCP Internal Medicine; Visit Provider Internal Medicine Nephrology
DX: E11.22 Type 2 diabetes mellitus with diabetic chronic kidney disease (principal); I12.9 Hypertensive chronic kidney disease with stage 1 through stage 4 chronic kidney disease, or unspecified chronic kidney disease; N18.32 Chronic kidney disease, stage 3b
CPT/HCPCS: 36415; 76770; 80069; 82570; 82784; 84155; 84156; 84165; 84166; 86037; 86038; 86160; 86225; 86334; 86335; 86364

== ENCOUNTER 2025-09-15 14:32 | Outpatient (CLI) | payer MEDICARE, SELFPAY ==
--- NOTE | ~2025-09-15 | MM_ITS ---
EXAMINATION: MM screening [facility] BI [facility] HISTORY: Screening TECHNIQUE: Craniocaudal and mediolateral oblique 3-D tomosynthesis images were obtained and synthetic 2-D images were generated. CAD analysis was submitted and interpreted. COMPARISON: Comparison to multiple prior studies sequentially, with oldest reviewed study dated 02/06/2013. BREAST PARENCHYMAL COMPOSITION: Not Dense: There are scattered areas of fibroglandular density. FINDINGS: There is no evidence of suspicious mass, calcification, or architectural distortion to suggest malignancy in either breast. Scattered benign-appearing calcifications are present. IMPRESSION: 1. No mammographic evidence of malignancy. 2. Recommend routine screening mammography in one year. BI-RADS Category 2: Benign finding(s). Reviewed, dictated and finalized at location A. ERENCE PLANNER
--- OUTSIDE RECORDS SUMMARY | 2025-09-15 17:22 | XMS_ITS | Clinical Summary ---
Author Organization [facility] Address [address] [place] [address] Phone Care Team Providers Care Seed Cleaning Machine Operator Name Role Phone Neftali Torres MD Primary Care Provider [phone] Allergies Active Allergy Reactions Criticality Noted Date [...] on file Legal Sex Female 10:30 AM BOWL TURNER Gender Identity Not on file Sexual Orientation Not on file Last Filed Vital Signs Vital Sign Reading Time Taken Comments Blood Pressure 128/80 10/19/2024 12:37 PM BOWL TURNER Pulse 86 10/19/2024 12:37 PM BOWL TURNER Temperature 36.2 C (97.2 F) 10/19/2024 12:37 PM BOWL TURNER Respiratory Rate 18 10/19/2024 12:37 PM BOWL TURNER Oxygen Saturation 96% 10/19/2024 12:37 PM BOWL TURNER Inhaled Oxygen Concentration - - Weight 57.6 kg (127 lb) 10/19/2024 12:37 PM BOWL TURNER Height 149.9 cm (4' 11) 09/25/2024 10:45 AM BOWL TURNER Body Mass Index 25.65 09/25/2024 10:45 AM BOWL TURNER Plan of Treatment Health Maintenance Due Date Last Done Comments DEXA Bone Density 1945 Hepatitis C Virus (HCV) Screening 1945 TdaP Immunization 1945 Medicare Initial AWV [id number] 09/30/2022 Respiratory Syncytial Virus (RSV) Immunization (Adult) (1 - 1-dose 75+ series) 12/18/2022 Influenza Immunization (#1) 05/31/202507/31, 08/13/2023, 08/30/2022, Additional history exists SARS-COV-2 Immunization (2024- season) 2025 09/21/2021, 01/20/2021, 12/23/2020 Pneumococcal Immunization (50+ years) Completed 07/17/2017, 07/13/2017, 06/24/2014, Additional history exists Zoster Immunization Completed 03/14/2023, Hepatitis B Immunization Aged Out No longer eligible based on patient's age to complete this topic Human Papillomavirus (HPV) Immunization (No Doses Required) Completed Meningococcal Immunization (ACWY) Aged Out No longer eligible based on patient's age to complete this topic Rotavirus Immunization Aged Out No lo nger eligible based on patient's age to complete this topic Insurance [facility] Advance Directives Documents on File Type Date Recorded Patient Load Mixer Expl anation Power of Developmental Specialist for Health Care 09/28/2024 11:33 AM POA 03/24/21 Power of Developmental Specialist for Health Care 09/28/2024 10:29 AM * Full Code (Latest Code Status on File) Date Activated Date Inactivated Comments 09/25/2024 7:25 PM Care Teams Seed Cleaning Machine Operator Relationship Specialty Start Date End Date Neftali Torres MD [address] [place] [address] PCP - General Internal Medicine 11/29/21
--- OUTSIDE RECORDS SUMMARY | 2025-09-15 17:22 | XMS_ITS | Clinical Summary ---
Author Organization [facility] Jimena lucio [facility] Address [address] [facility] [place] [address] Care Team Providers Care Training And Quality Manager Name Role Phone Neftali Torres MD Primary Care Provider [phone] Allergies Active Allergy Reactions Criticality Noted Date [...] Encounters Date Type Department Care Team Description 07/20/2025 External Device Data STL ABSTRACTION Provider, Abstract [...] 04/25/2023, 11/25/2021 INFLUENZA VACCINE (#1) 2025 Insurance [facility] [employer] [facility] [id number] Care Teams Training And Quality Manager Relationship Specialty Start Date End Date Neftali Torres MD [address] [place] [address] PCP - General Internal Medicine 02/23/22
--- OUTSIDE RECORDS SUMMARY | 2025-09-15 17:22 | XMS_ITS | Clinical Summary ---
Author Organization [facility] Address [address] [place] [address] Care Team Providers Care Power Systems Engineer Name Role Phone Neftali Torres MD Primary Care Provider [phone] Source Comments [facility],non-owned Affiliates and Associated Physician Practices is amultiple site organization consisting of ambulatory clinics and hospital sitesin [place], [place], [place] and [place]. This disclosure is being madepursuant to the Care Everywhere program and may not contain all information available regarding this patient. Last updated 18.[facility] Allergies Active Allergy Reactions Criticality Noted Date [...] the tongue 15 tablet 09/19/2024 10:02 AM RESIDENTIAL ELECTRICIAN 4 Active metoprolol succinate XL 24hr (Toprol [...] Muscle Spasms 15 tablet 09/19/2024 10:02 AM RESIDENTIAL ELECTRICIAN 4 Active Active Problems Problem Noted Date [...] and heating? Not hard at all 09/15/2024 [facility] - Occupational Stress [...] place to sleep or slept in a nursing home (including now)? No 05/03/2023 Housing Stability [...] any time in the past 12 m [facility], were you homeless or living in a nursing home (including now)? No 09/15/2024 Comments Unknown Sex and Gender Information Value Date Recorded Sex Assigned at Not on file Legal Sex Female 5:52 PM RESIDENTIAL ELECTRICIAN Gender Identity Not on file Sexual Orientation Not on file Last Filed Vital Signs Vital Sign Reading Time Taken Comments Blood Pressure 154/83 09/19/2024 12:11 PM RESIDENTIAL ELECTRICIAN Pulse 86 09/19/2024 12:11 PM RESIDENTIAL ELECTRICIAN Temperature 37 C (98.6 F) 09/19/2024 12:11 PM RESIDENTIAL ELECTRICIAN Respiratory Rate 14 09/19/2024 8:30 AM RESIDENTIAL ELECTRICIAN Oxygen Saturation 94% 09/19/2024 12:11 PM RESIDENTIAL ELECTRICIAN Inhaled Oxygen Concentration - - Weight 61.7 kg (136 lb) 09/19/2024 4:00 AM RESIDENTIAL ELECTRICIAN Height 152.4 cm (5') 09/15/2024 1:00 AM RESIDENTIAL ELECTRICIAN Body Mass Index 26.56 09/15/2024 1:00 AM RESIDENTIAL ELECTRICIAN Plan of Treatment Health Maintenance Due Date Last Done Comments BONE DENSITY TESTING 1945 HEPATITIS C SCREENING 12/14/1965 DTAP/TDAP/TD VACCINES (1 - Tdap) 12/18/1966 PNEUMOCOCCAL VACCINE 50+ (1 of 2 - PCV) 12/18/1966 ZOSTER VACCINE (1 of 2) 12/18/1997 Respiratory Syncytial Virus (RSV) Vaccine Pt: or over 60 yrs (1 - 1-dose 75+ series) 12/18/2022 DIABETES RETINOPATHY SCREENING 09/19/2024 DIABETES-FOOT EXAM WITH MONOFILAMENT 09/19/2024 DIABETES-HGB A1C 09/19/2024 05/04/2023 DEPRESSION SCREENING 09/30/2024 DIABETES - URINE PROTEIN SCREENING 09/30/2024 MEDICARE AWV CALENDAR YEAR 2024 COVID-19 VACCINE ( - season) 2025 09/21/2021, 01/20/2021, 12/23/2020 INFLUENZA VACCINE [...] (CALCIUM TOTAL) AM Draw 09/19/2024 12:36 AM RESIDENTIAL ELECTRICIAN HEMOGLOBIN A1C Routine 05/04/2023 4:06 AM CDT from Last 3 Months or Most Recently Relevant to Health Maintenance Results * (ABNORMAL) BASIC METABOLIC PANEL (CALCIUM TOTAL) (09/19/2024 12:36 AM RESIDENTIAL ELECTRICIAN) BUN 61(H) 7 - 26 mg/dL 09/19/2024 1:18 AM [facility] Creatinine 1.31(H) 0.56 - 0.96 mg/dL 09/19/2024 1:18 AM [facility] Sodium 136 136 - 145 mmol/L 09/19/2024 1:18 AM [facility] Potassium 5.0(H) 3.5 - 4.5 mmol/L 09/19/2024 1:18 AM [facility] Chloride 100 98 - 107 mmol/L 09/19/2024 1:18 AM [facility] CO2 30(H) 22 - 29 mmol/L 09/19/2024 1:18 AM [facility] Glucose 268(H) 70 - 99 mg/dL 09/19/2024 1:18 AM [facility] Calcium 9.2 8.4 - 10.2 mg/dL 09/19/2024 1:18 AM [facility] Anion Gap 6 6 - 16 09/19/2024 1:18 AM [facility] BUN/Creatinine Ratio 47(H) 7 - 23 09/19/2024 1:18 AM [facility] Osmolality Calculated 309(H) 275 - 295 mOsm/kg 09/19/2024 1:18 AM [facility] eGFR by CKD-EPI 42(L) >=90 mL/min/1.7 3 m2 09/19/2024 1:18 AM [facility] Blood BLOOD SPECIMEN / Unknown Lab Venipuncture / Unknown 09/19/2024 12:36 AM RESIDENTIAL ELECTRICIAN 09/19/2024 12:53 AM [facility] us Any Mccoy PA-C LAB - CHEMISTRY ORDERAB LES Final Result [facility] [address] [place] [address], [facility] [phone] * (ABNORMAL) HEMOGLOBIN A1C (05/04/2023 4:06 AM CDT) Hemoglobin A1c 7.8(H) <=5.6 % 05/04/2023 2:37 PM CDT [facility] Estimated Average Glucose 177 mg/dL 05/04/2023 2:37 PM CDT [facility] Comment: HbA1c Interpretation: Normal : < 5.7% Pre-diabetes: 5.7-6.4% Diabetes: Equal to or greater than 6.5% Test results diagnostic of diabetes should be repeated for confirmation. Treatment target values recommended by ADA and other clinical organizations should be used to evaluate metabolic control in patients. Reference: [place] Diabetes Association, Standards of Care in Diabetes -2020 In patients 70 years and older consider HbA1c target range of 7.0-7.5% (Reference: Shakir Parada et al. JAMDA. 2012) The Sebia assay for the measurement of HbA1c is a National Glycohemoglobin Standardization Program (NGSP) certified method. Blood BLOOD SPECIMEN / Unknown Lab Venipuncture / Unknown 05/04/2023 4:06 AM CDT 05/04/2023 5:25 AM CDT us uR Pena MD LAB - CHEMISTRY ORDERABLES Final Result [facility] [address] [place] [address], [facility] [phone] from Last 3 Months or Most Recently Relevant to Health Maintenance Insurance [facility] MANAGED MEDICARE ADV MEDICARE [facility] MANAGED MEDICARE ADV Advance Directives * Full Code (Latest Code Status on File) Date Activated Date Inactivated Comments 09/14/2024 3:25 AM 09/19/2024 2:53 PM * Full Code Date Activated Date Inactivated Comments 05/03/2023 5:30 AM 05/05/2023 3:48 PM Care Teams Power Systems Engineer Relationship Specialty Start Date End Date Neftali Torres MD [address] [place] [address] PCP - General 06/05/16
--- OUTSIDE RECORDS SUMMARY | 2025-09-15 17:22 | XMS_ITS | Clinical Summary ---
Author Organization [facility] Address [address] [place] [address] Care Team Providers Care Electronic Console Display Operator Name Role Phone Unavailable Primary Care Provider [...] 75+ series) 12/18/2022 COVID-19 Vaccine ( - 2024-2 6 season) 2025 Influenza Adult (#1) 2025 Hepatitis A Vaccines Aged Out No long er eligible based on patient's age to complete this topic Meningococcal B Vaccine Aged Out No l onger eligible based on patient's age to complete this topic Meningococcal Vaccine Aged Out No tom gustabo eligible based on patient's age to complete this topic RSV Immunizations Under 20 Months Aged Out No longer eligible based on patient's age to complete this topic
--- OUTSIDE RECORDS SUMMARY | 2025-09-15 17:23 | XMS_ITS | Clinical Summary ---
Author Organization [facility] s Address [address] [place] [address] Care Team Providers Care Technology Integration Specialist Name Role Phone Neftali Torres MD Primary Care Provider [phone] Brian Carson Nae DO Unavailable [phone] Anna Maldonado Unavailable Unavailable Allergies Active Allergy [...] 600 mg by mouth daily Active omega 6-ifw-pqb-fish oil 1,200 (144-216) mg capsule Take 1 [...] 04/23/2023 Mixed hyperlipidemia 04/04/2023 Assessment & Plan (06/24/2025 12:42 PM CDT): Stable and controlled continue Lipitor Assessment & Plan (12/18/2024 7:29 AM CDT): Stable continue Lipitor Assessment & Plan (06/10/2024 9:49 AM CDT): Stable continue Lipitor Assessment & Plan (04/04/2023 9:24 AM CDT): Stable continue Lipitor 80 mg. Abnormal kidney function 03/20/2023 Bilateral carotid artery stenosis 02/21/2023 Assessment & Plan (06/24/2025 12:46 PM CDT): Asymptomatic bilateral moderate carotid stenosis. Continue aspirin statin therapy follow up 6 months for routine surveillance with carotid duplex Assessment & Plan (12/18/2024 7:29 AM CDT): [...] duplex. Assessment & Plan (11/27/2023 9:44 AM NICKEL PLATER): Left carotid continues to be patent with [...] effects. Assessment & Plan (11/29/2021 10:53 AM NICKEL PLATER): - Bupriopion daily - Plan to titrate with PCP Hematoma 11/26/2021 Assessment & Plan (11/27/2021 12:46 PM NICKEL PLATER): Hematoma of R buttock extending into inner [...] 11/25/2021 Assessment & Plan (11/28/2021 11:24 AM NICKEL PLATER): At OSH INR was 24.1 on 11/24/21 [...] mg. Assessment & Plan (11/27/2021 3:22 PM NICKEL PLATER): Reportedly LVEF 40% (last echo on file is in 2015). On home metop 50 daily, spironolactone 12.5 (?) daily, furosemide 40mg daily. -Received records from her marketing copywriter: Last echo Sep- EF 55-60%, mild LVH, [...] list of meds- she last saw her marketing copywriter 1.5 yrs ago and she has ED visits since then; might need to get records from PCP - BMP daily Type 2 diabetes mellitus wit h diabetic peripheral angiopathy without gangrene, without long-term current use of insulin 11/24/2021 Assessment & Plan (06/24/2025 12:44 PM CDT): Stable and controlled. Continue Farxiga, and Ozempic Assessment & Plan (11/26/2021 1:25 PM NICKEL PLATER): Reportedly on long-acting insulin and glimepride 2mg BID, although not sure of dose. Was hyperglycemic to 355 at OSH. - glargine 8U QHS - SSI - sugars in good control Hypertension 11/24/2021 Assessment & Plan (06/24/2025 12:42 PM CDT): Stable controlled. Continue metoprolol lisinopril Assessment & Plan (12/18/2024 7:29 AM CDT): Stable continue lisinopril Assessment & Plan (06/10/2024 9:49 AM CDT): Stable continue lisinopril Assessment & Plan (04/04/2023 9:23 AM CDT): Stable continue lisinopril 10 mg. Assessment & Plan (03/14/2023 9:03 AM CDT): Stable continue lisinopril 10 mg. Assessment & Plan (02/21/2023 7:43 AM CDT): Stable continue metoprolol 50 mg. Assessment & Plan (11/27/2021 12:42 PM NICKEL PLATER): Home meds amlodipine 5, others per HFrEF. - Held all antihypertensives until active bleeding ruled out - Normotensive, holding meds EXCEPT lasix which we will restart today at a low dose. SKYE (acute kidney injury) 11/24/2021 Assessment & Plan (11/27/2021 3:22 PM NICKEL PLATER): OSH Cr 1.99 from reported b/l 1.5. Unclear if this is SKYE, or SKYE on CKD. - Unknown baseline Creat -Records from Film Producer do not have baseline creat but do have dx of Stage 3 CKD - Cr 1.6 here -> then downtrended to 1.4 after gentle IVF on 11/25 - Leg swelling, restart lasix at low dose of 20 mg daily - CTM, avoid nephrotoxins Acute blood loss anemia 11/24/2021 Assessment & Plan (11/29/2021 10:49 AM NICKEL PLATER): B/l Hgb reportedly ~11, at OSH was [...] PCP. Assessment & Plan (11/29/2021 10:50 AM NICKEL PLATER): H/o prior PE on chronic anticoagulation with [...] of Hb - Spoke to her outpatient Film Producer Dr. Brian Carson ([facility]) to find out the indication for AC- he says he last saw her 1.5 yr ago, indication is 'PE', but Xarelto was started a few months ago at an ER visit or by PCP. - PCP confirmed history of PE in September of 2019 Vascular calcification 03/13/2016 Carotid bruit 03/13/2016 Chronic coronary artery disease 03/13/2016 Assessment & Plan (11/24/2021 11:10 PM NICKEL PLATER): S/p DICK 2013. On atorva 80, per patient has been off ASA. - Continue atorva 80 Ischemic cardiomyopathy 03/13/2016 Chronic systolic heart failure 03/13/2016 Resolved Problems Problem Noted Date Diagnosed Date Resolved Date Hyperkalemia 11/24/2021 11/26/2021 Assessment & Plan (11/27/2021 12:43 PM NICKEL PLATER): Reportedly 5.8 at OSH, s/p temporization. - K has not been elevated here. K is 4.3 today. Encounters Date Type Department Care Team Description 06/23/2025 9:45 AM CDT Office Visit [facility] at [address] [place] [phone] Sangita Rivera NP Bilateral carotid artery stenosis (Primary Dx); Primary hypertension; Mixed hyperlipidemia; Type 2 diabetes mellitus with diabetic peripheral angiopathy without gangrene, without long-term current use of insulin ([facility]) 06/23/2025 Orders Only [facility] at [address] [place] [phone] Ebenezer Pop MD Bilateral carotid artery stenosis (Primary [...] CHF (congestive heart failure) (HCC) History of MN (myocardial infarction) 2013 History of bronchitis History [...] on file Legal Sex Female 8:29 AM NICKEL PLATER Gender Identity Not on file Sexual Orientation [...] Risk Assessment 05/02/2024 05/02/2023 eGFR 05/02/2024 05/02/2023, 0810/2022, 04/25/2023, Additional history exists Covid-19 Vaccine (2024-10 6 season) 2025 09/21/2021, 01/20/2021, 12/23/2020 Influenza [...] history exists Medical Devices Implanted Type Area Rod Greaser Device Identifier Shelf Expiration Date Model / Serial / Lot Stent Heart Scribz Theo Patch Vascuguard 0.88cm [id number] - [id number] Implanted:Qty: 1 on 04/30/2023 by Ebenezer Pop MD at [facility] Left: Neck [facility] Theo [id number] 12/05/2023 [id number] / / [id number] Procedures Procedure Name Priority Date/Time Associated Diagnosis Comments EGFR Routine 05/02/2023 7:06 AM CDT HEMOGLOBIN A1C Routine 04/25/2023 11:47 AM CDT Type 2 diabetes mellitus without complication, with long-term current use of insulin (HCC) LIPID PANEL Routine 11/24/2021 9:43 PM NICKEL PLATER COLONOSCOPY REPORT 10/25/2016 from Last 3 Months [...] LAB BLOOD ORDERABLES Final Re sult [facility] [address] [facility] Department [place] [address] * (ABNORMAL) Hemoglobin A1c (04/25/2023 [...] and children were not included. (Diabetes Care 31:4234-3015, 2008). The eAG is not equivalent to a fasting glucose. Blood 04/25/2023 11:4 7 AM CDT 04/25/2023 12:48 PM CDT us Ebenezer Pop MD LAB BLOOD ORDERABLES Final Resul t [facility] [address] [facility] [place] [address] * (ABNORMAL) Lipid panel (11/24/2021 9:43 PM NICKEL PLATER) Cholesterol 126 30 - 199 mg/dL [facility] [...] 2018. LDL, calculated 51 <=129 mg/dL [facility] Comment: Interpretive Data Ages < or [...] revised on 2018. Non-HDL Cholesterol 100 mg/dL [facility] Comment: Interpretive Data Ages < or [...] last revised on 2018. Chol/HDL ratio 5 [facility] Blood 11/24/2021 9:43 PM NICKEL PLATER 11/24/2021 10:53 PM NICKEL PLATER us Dahlia Moseley MD LAB BLOOD ORDERABLES Final Result [facility] Department [place] [address] * COLONOSCOPY REPORT (10/25/2016) Anatomical Region Laterality Modality Other Narrative 10/25/2016 Ordered by an unspecified provider. us Historical Provider GI PROCEDURE ORDERABLES F inal Result from Last 3 Months or Most Recently Relevant to Health Maintenance Insurance [employer] MEDIC[employer] ADVANTAGE Advance Directives For more information, please contact: [phone] Documents on File Type Date Recorded Patient Floor Covering Printer Expl anation Power of Pro Shop Attendant 04/30/2023 7:55 AM * Full Code (Latest Code Status on File) Date Activated Date Inactivated Comments 04/30/2023 5:05 PM 05/02/2023 8:36 PM * Full Code Date Activated Date Inactivated Comments 11/24/2021 9:19 PM 11/29/2021 8:19 PM Care Teams Technology Integration Specialist Relationship Specialty Start Date End Date Neftali Torres MD PCP - General 01/18/17 Brian Carson DO [address] [place] [address] Referring Physician Cardiology 04/25/23 Anna Maldonado Primary Lead Vulcanizing Operator 06/17/25
--- OUTSIDE RECORDS SUMMARY | 2025-09-15 17:23 | XMS_ITS | Data Portability ---
Author Organization [facility], Main Office Address [address] [place] [address] Care Team Providers Care Signal Processing Engineer Name Role Phone LUDIVINA JULIO Referring Provider TAWANDA CANNON Primary Care Provider Assessment No assessment recorded. Plan of Treatment Reminders Order Date Submit Date Provider Last Modified By Organization Details Last Modified Time Details Appointments None recorded. Lab None recorded. Referral endocrinolo gy referral - also had recent finding of left adrenal adenoma from CT scan in May 072022 023 [email or web address] Yni Jackson MD, [address],, [address], [address], 3 12:21:26 Procedures None recorded. Surgeries None recorded. Imaging None recorded. Medication Orders Jardiance 25 mg tablet 2022 023 [facility] [address] [place], [address], 3 12:03:55 Patient TargetsNo targets recorded. Patient [...] Organization Details Recorded Time Benign essential hypertension 8335436 Active Not Available [facility] 3 20:31:15 Hypoglycemia 967323568 Active Not Available [facility] 3 20:31:15 Type 2 diabetes mellitus without complication 595334254 Active Not Available [facility] 3 20:31:15 Vitamin D deficiency 05715553 Active Not Available [facility] 3 20:31:15 Sinusitis 72136814 Active Not Available [facility] 3 20:31:15 Osteoarthriti s 024089140 Active Not Available [facility] 3 20:31:15 Uncontrolled type 2 diabetes mellitus 438223182 Active Not Available [facility] 3 20:31:15 Anxiety 51070594 Active Not Available [facility] 3 20:31:15 Dyslipidemia 458691117 Active 2021 Not Available [facility] 3 20:31:15 Depressive disorder 73730460 Active 2021 Not Available [facility] 3 20:31:15 Adrenal adenoma 701422787 Active 2022 Jessica Zelaya MD [address] [place] [address], [phone] , [facility] 3 13:34:42 Notes:Some problems listed i n Document: #[id number] could not be added to this patient's chart. Please review this document and add these problems to the patient's chart manually as needed. Problem Notes None recorded. Medical Equipment None Reported. Allergies Allergen ID Allergen Name Allergen Category Reaction Reaction Severity Criticality Documentation Date Start Date Code Code System Note Provider Name and Address Organization Details Recorded Time 03496 codeine medicatio n Not available Not available Not available 11/28/2022 2670 RxNorm Not Available [facility] 3 15:13:42 Medications Name Sig Start [...] Not Available Not Available No t Available Bydureon BCise 2 mg/0.85 mL subcutaneou s auto-inject [...] Available No t Available [employer]Style Anne-Marie 2 Delta USE DIRECTED active Not Available Not Available No t Available Vitals Date Recorded Body mass index (BMI) Body height Oxygen saturation Heart rate Respiratory rate Body temperature Body weight Systolic And Diastolic Provider Name and Address Organization Details Last Updated DateTime 3 29.7 kg/m2 154.94 cm 98 % 68 /min 17 /min 97.8 [degF] 41511 g 128/74 mm[Hg] Not Available [facility] 3 15:12:20 Date Recorded Body mass index (BMI) Body height Oxygen saturation Heart rate Body temperature Body weight Systolic And Diastolic Provider Name and Address Organization Details Last Updated DateTime 2 28.3 kg/m2 154.94 cm 98 % 67 /min 97.7 [degF] 03372.8 6 g 120/70 mm[Hg] Not Available [facility] 3 15:12:20 Date Recorded Body mass index (BMI) Body height Oxygen saturation Heart rate Body temperature Body weight Systolic And Diastolic Provider Name and Address Organization Details Last Updated DateTime 2 28.3 kg/m2 154.94 cm 99 % 55 /min 97.7 [degF] 36721.8 6 g 140/60 mm[Hg] Not Available [facility] 3 15:12:20 Date Recorded Body height Body mass index (BMI) Body weight Heart rate Systolic And Diastolic Provider Name and Address Organization Details Last Updated DateTime 05/10/2023 154.94 cm 30 kg/m2 25970.47 g 85 /min 118/64 mm[Hg] Zaira Sylvester [facility] [employer] [facility] 05/10/2023 11:59:21 Date Recorded Body mass index (BMI) Body height Oxygen saturation Heart rate Respiratory rate Body temperature Body weight Systolic And Diastolic Provider Name and Address Organization Details Last Updated DateTime 30 kg/m2 154.94 cm 96 % 78 /min 16 /min 98.9 [degF] 70832.1 9 g 140/72 mm[Hg] Not Available [facility] 3 15:12:20 Social History None recorded. Functional Status Question Answer Note LastModified by Property Placeizat ion Details LastModified Time What is your level of alcohol consumption? None [id number] Information not available 11/28/2022 Mental Status None recorded. Family History Nothing Reported. Medical History Condition Response DIABETES, TYPE Y HAVE YOU BEEN HOSPITALIZED OR SEEN IN [facility] IN THE PAST YEAR ? Y Gynecological HistoryNo gynecological history recorded. Obstetrics History GPAL:G 0 P 0 0 0 0 Immunizations Vaccine Type Date Status Note Provider [facility] e and Address Organization Details Recorded Time Influenza, high-dose, trivalent, PF 4 completed Not Available [facility] 01/17/2023 20:31:15 Influenza, split virus, quadrivalent, PF 4 completed Not Available [facility] 01/17/2023 20:31:15 Pneumococcal conjugate PCV 13 4 completed Not Available [facility] 01/17/2023 20:31:15 Past Encounters Encounter ID Performer Location Encounter Start Date Encounter Closed Date Diagnosis/Indication Diagnosis SNOMED-CT Code Diagnosis ICD10 Code Diagnosis IMO Codes Diagnosis Note [id number] Jessica Zelaya MD [facility] [place] [address] [place] [address] 08/07/2021 00:00:00 08/07/2021 16:41:23 [id number] [facility] [place] [address] [place], [place] [address] 01/30/2022 00:00:00 01/30/2022 15:35:12 [id number] [facility] [place] [address] [place] [address] 05/08/2022 00:00:00 05/08/2022 14:37:16 [id number] MD SHAH[facility] [place] [address] [place], [place] [address] 11/22/2022 00:00:00 11/22/2022 22:11:12 [id number] Jessica Zelaya MD [facility] [place] [address] [place], [place] [address] 05/10/2023 11:28:58 05/10/2023 12:21:26 Uncontrolled type 2 diabetes mellitus 670072777 E11.65 A1C not completed at [facility] - per log A1C likely [...] endocrinol ogy per patient request Adrenal adenoma [id number] 8 D35.[address] [facility] Patient provided referral to endocrinol [...] Recorded Advance Directives Directive None Recorded Payers Insurance Date Sequence Insurance Name Policy Number Policy Sharma Covered Member ID Sharma Member ID Guarantor Name 05/13/2023 1 [facility] (MEDICARE REPLACEMENT/A DVANTAGE - HMO) [id number] Tran Bryan [id number] Tran Bryan Notes Date Note Type Note Provider Name and Address Organization Details Recorded Time 05/10/2023 text/html ROS as noted in the HPI 77 yo female yo female comes in [...] mg/dLdenies any hypoglycemia. Jessica Zelaya MD [address] [facility], [place], [address], [place] [facility] [employer] 05/10/2023 13:35:42 OBGyn Episode No OBEpisode recorded.
== END 2025-09-15 14:33 | disposition home or self-care (01) ==
LOC: CHSIMG 14:33
PROVIDERS: PCP Internal Medicine; Visit Provider Nurse Practitioner Family
DX: Z12.31 Encounter for screening mammogram for malignant neoplasm of breast (principal)
CPT/HCPCS: 77063; 77067